=== PATIENT | female | born 1940 | race Caucasian/White ===

== ENCOUNTER 2016-06-10 12:20 | Inpatient (IN) | payer OTHER ==
[~2016-06-10] VITALS: Ht 152.4 cm; Wt 74.7 kg
[~2016-06-10 12:20] MED LIST: ANT25 PO; ASPI-435 PO; CRAN500C2 PO; INSUINJ4 SQ; LISI40TA PO; LPT/40 PO; METO-452 PO; TRIM100T2 PO
[2016-06-10] MEDS ORDERED: MECL1TAB42 PO (13:10)
[2016-06-10] MEDS ORDERED: DULA1INJ SC (13:10)
[2016-06-10] MEDS ORDERED: [UNRECOGNIZED DRUG - CODE] PO (13:10)
[2016-06-10] MEDS ORDERED: VNTHFA/IN INH (13:10)
[2016-06-10] MEDS ORDERED: TOLT2TAB9 PO (13:10)
[2016-06-10] MEDS ORDERED: INSU1.2I SC (13:10)
[2016-06-10 13:44] LABS: BASO % 0.2 %; BASO ABS # 0.01 K/uL (0-0.2); COMPLETE YES; EOS % 0.4 %; IG% 0.4 %; LYMPH % 34.7 %; LYMPH ABS # 1.67 K/uL (1.2-3.4); MEAN CELL VOLUME 89.1 fL (80-100); MEAN CORPUSCULAR HEMOGLOBIN 31.4 pg (25-34); MEAN CORPUSCULAR HGB CONC 35.3 g/dl (32-36); MEAN PLATELET VOLUME 10.4 fL (7.4-10.4); MONO % 13.7 %; NEUT % 50.6 %; PLATELET COUNT 141 K/uL (130-400); RED BLOOD COUNT 4.49 M/uL (4.2-5.4); WHITE BLOOD COUNT 4.81 K/uL (4.8-10.8)
[2016-06-10 13:47] LABS: MANUAL MICROSCOPIC REQUIRED? YES; REVIEW REQ? NO; URINE APPEARANCE SL CLOUDY (CLEAR); URINE BILIRUBIN NEG (NEG); URINE COLOR YELLOW; URINE NITRITE NEG (NEG); URINE PH 5.5 (4.5-7.5); URINE SPECIFIC GRAVITY >= 1.030 (1.000-1.030); UROBILINOGEN NEG (NEG)
[2016-06-10 13:54] LABS: BUN/CREATININE RATIO 13.7 (10-20); CALCIUM 8.8 mg/dl (8.5-10.1); CREATININE 1.2 mg/dl (0.60-1.20)
[2016-06-10 13:55] LABS: URINE BACTERIA 1+ (NEG); URINE RBC 0-4 /hpf (0-4)
[2016-06-10 13:56] LABS: ZZUR CULT IF INDIC CLEAN CATCH YES
[2016-06-10 13:59] LABS: ALB/GLOB RATIO 0.9 (0.9-2)
[2016-06-10] MEDS ORDERED: SODIUM CHLORIDE 0.9% 1000ML 1,000 ML IV ONE (14:02)
[2016-06-10] MEDS ORDERED: SODIUM CHLORIDE 0.9% 1000ML 1,000 ML IV STA (14:02)
--- NOTE | 2016-06-10 14:16 | EMERGENCY ROOM VISIT NOTE ---
History Report prepared by Christina: Rangel Rodriguez Under the Supervision of: Dr. Luiz Barton M.D. First contact with patient: 13:58 Chief Complaint: COUGH Stated Complaint: COUGH, CHEST PAIN, DIAHRRHEA, FEVER, WEAKNESS. 1WK Nursing Triage Summary: Pt c/o cough, dizziness, diarrhea (has it all the time, Has Lupus but in remission). Abdominal pain on the right side. Right hip pain, "I hurt all over even in my toes". "My chest hurts from coughing" Symptoms x 1 week. Hx DM, Lupus, Strokes, VA History of Present Illness The patient is a 75 year old female who presents to the Emergency Room with complaints of a persistent cough beginning one week prior to arrival. She currently rates her discomfort as a 7/10 in severity. The patient associates body aches, sore throat, sinus drip, sore neck, headache, eye burning, chest pain with coughing, dizziness, and diarrhea with today's symptoms. As per family , the patient experiences loose bowels all of the time. She notes the patient has Lupus but is in remission. The patient notes she had a fever that resolved last night. She denies being in contact with sick people. The patient states she has taken Advil with little relief. She notes she is not on a blood thinner , and she states she takes an aspirin a day. The patient denies burning with urination. 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 A total of 10 systems reviewed and were otherwise negative. Past Medical & Surgical Medical Problems: (1) CHF (congestive heart failure) (2) Diabetes (3) Heart attack (4) Kidney stones (5) Lupus (6) Stroke (7) UTI (urinary tract infection) (8) Vertigo Surgical Problems: (1) Stented coronary artery Old medical records were reviewed. Nurse's notes were reviewed and I agree with. Family History Patient reports no known family medical history. Social History Smoking Status: Never Smoker Alcohol Use: none Drug Use: none Occupation Status: retired Current/Historical Medications Scheduled Albuterol Hfa (Ventolin Hfa), 1-2 PUFFS INH Q4-6H Aspirin (Aspirin 81), 81 MG PO DAILY Atorvastatin (Lipitor), 40 MG PO HS Cranberry (Vaccinium Macrocarp (Cranberry), 1,000 MG PO DAILY Dulaglutide (Trulicity), 0.75 MG SC WK Insulin Glargine (Toujeo Solostar), 44 UNITS SC DAILY Lactobacillus (Acidophilus Probiotic), 2 TABS PO DAILY Lisinopril (Zestril), 1 TAB PO DAILY Metoprolol Succinate (Toprol Xl), 50 MG PO DAILY Tolterodine Tartrate (Tolterodine Tartrate), 2 MG PO BID Trimethoprim (Proloprim), 100 MG PO HS Scheduled PRN Meclizine Hcl (Meclizine Hcl), 1 TAB PO Q12 PRN for Dizziness or Vertigo Allergies Coded Allergies: Dapsone (Verified Allergy, Intermediate, RASH, 06/10/16) Sulfa Drugs (Verified Allergy, Mild, 06/10/16) Ciprofloxacin (Verified Adverse Reaction, Intermediate, "i blew up like a balloon" per pt, 06/10/16) Adhesives (Verified Adverse Reaction, Unknown, unknwn, 06/10/16) Hydrocodone (Verified Adverse Reaction, Unknown, GI SYMPTOMS, 06/10/16) Oxycodone (Verified Adverse Reaction, Unknown, GI SYMPTOMS, 06/10/16) Red Dye (Verified Adverse Reaction, Unknown, unknwn, 06/10/16) Physical Exam Vital Signs Date Time Temp Pulse Resp B/P Pulse Ox O2 Delivery O2 Flow Rate FiO2 06/10/16 16:05 72 19 97 06/10/16 16:00 154/93 06/10/16 15:44 168/96 06/10/16 15:35 68 20 97 06/10/16 15:32 70 06/10/16 15:30 69 25 99 06/10/16 15:11 68 16 181/93 100 Room Air 06/10/16 15:08 181/93 06/10/16 14:45 79 16 158/101 97 Room Air 06/10/16 12:32 98 Room Air 06/10/16 12:27 36.7 74 17 124/74 97 Room Air Physical Exam General: Mildly ill appearing but nontoxic older female. Frequent dry cough. HEENT: Normal cephalic atraumatic. Pupils are equal round and reactive to light. Extraocular movements are intact. Oropharynx is pink with moist mucous membranes. No swelling of the mouth lips or tongue. Neck: Supple with a midline trachea. No meningeal signs or stiffness, no JVD or bruits. No Stridor. Chest: Clear to auscultation bilaterally. No wheezes or rhonchi. No increased work of breathing. Heart: regular rate and rhythm. Abdomen: Soft nontender, nondistended without rebound guarding or rigidity. Extremities: No cyanosis clubbing or edema. No calf tenderness or assymetry Spine/Back. Non tender to palpation. No CVA tenderness Skin: Good turgor without rashes. Neurologic exam: Cranial nerves two through 12 are intact. Motor and sensation are intact and symmetrical throughout. Medical Decision & Procedures ER Provider Diagnostic Interpretation: X-ray results as stated below per interpretation by me and the radiologist: CHEST 2 VIEWS ROUTINE CLINICAL HISTORY: Productive cough COMPARISON STUDY: December 04, 2014 FINDINGS: The heart is enlarged. There are interstitial opacities with a peripheral distribution. There is no significant pleural fluid. There is no lobar consolidation. Likely diagnostic considerations include interstitial edema, eosinophilic pneumonitis, cryptogenic organizing pneumonia, or UIP. IMPRESSION: Mild cardiomegaly. Bilateral interstitial opacities with a peripheral perfusion. Please see above differential. Electronically signed by: Tom Genao M.D. 06/10/2016 2:49 PM Laboratory Results 06/10/16 13:15 Red Blood Count 4.49, Mean Corpuscular Volume 89.1, Mean Corpuscular Hemoglobin 31.4, Mean Corpuscular Hemoglobin Concent 35.3, Mean Platelet Volume 10.4, Neutrophils (%) (Auto) 50.6, Lymphocytes (%) (Auto) 34.7, Monocytes (%) (Auto) 13.7, Eosinophils (%) (Auto) 0.4, Basophils (%) (Auto) 0.2, Neutrophils # (Auto ) 2.43, Lymphocytes # (Auto) 1.67, Monocytes # (Auto) 0.66, Eosinophils # (Auto ) 0.02, Basophils # (Auto) 0.01 06/10/16 13:15 Test 06/10/16 13:15 06/10/16 14:33 White Blood Count 4.81 K/uL (4.8-10.8) Red Blood Count 4.49 M/uL (4.2-5.4) Hemoglobin 14.1 g/dL (12.0-16.0) Hematocrit 40.0 % (37-47) Mean Corpuscular Volume 89.1 fL (80-100) Mean Corpuscular Hemoglobin 31.4 pg (25-34) Mean Corpuscular Hemoglobin Concent 35.3 g/dl (32-36) Platelet Count 141 K/uL (130-400) Mean Platelet Volume 10.4 fL (7.4-10.4) Neutrophils (%) (Auto) 50.6 % Lymphocytes (%) (Auto) 34.7 % Monocytes (%) (Auto) 13.7 % Eosinophils (%) (Auto) 0.4 % Basophils (%) (Auto) 0.2 % Neutrophils # (Auto) 2.43 K/uL (1.4-6.5) Lymphocytes # (Auto) 1.67 K/uL (1.2-3.4) Monocytes # (Auto) 0.66 K/uL (0.11-0.59) Eosinophils # (Auto) 0.02 K/uL (0-0.5) Basophils # (Auto) 0.01 K/uL (0-0.2) RDW Standard Deviation 43.0 fL (36.4-46.3) RDW Coefficient of Variation 13.2 % (11.5-14.5) Immature Granulocyte % (Auto) 0.4 % Immature Granulocyte # (Auto) 0.02 K/uL (0.00-0.02) Urine Color YELLOW Urine Appearance SL CLOUDY (CLEAR) Urine pH 5.5 (4.5-7.5) Urine Specific Diagonal >= 1.030 (1.000-1.030) Urine Protein TRACE (NEG) Urine Glucose (UA) NEG (NEG) Urine Ketones NEG (NEG) Urine Occult Blood 1+ (NEG) Urine Nitrite NEG (NEG) Urine Bilirubin NEG (NEG) Urine Urobilinogen NEG (NEG) Urine Leukocyte Esterase MODERATE (NEG) Urine RBC 0-4 /hpf (0-4) Urine WBC 10-30 /hpf (0-5) Urine Epithelial Cells >30 /lpf (0-5) Urine Bacteria 1+ (NEG) Anion Gap 9.0 mmol/L (3-11) Est Creatinine Clear Calc Drug Dose 36.2 ml/min Estimated GFR () 51.2 Estimated GFR (Non- 44.2 BUN/Creatinine Ratio 13.7 (10-20) Calcium Level 8.8 mg/dl (8.5-10.1) Total Bilirubin 0.7 mg/dl (0.2-1) Aspartate Amino Transf (AST/SGOT) 47 U/L (15-37) Alanine Aminotransferase (ALT/SGPT) 34 U/L (12-78) Alkaline Phosphatase 40 U/L (45-117) Total Creatine Kinase 270 U/L (26-192) Creatine Kinase MB 1.3 ng/ml (0.5-3.6) Creatine Kinase MB Ratio 0.5 (0-3.0) Total Protein 7.5 gm/dl (6.4-8.2) Albumin 3.6 gm/dl (3.4-5.0) Globulin 3.9 gm/dl (2.5-4.0) Albumin/Globulin Ratio 0.9 (0.9-2) Chemistry Specimen Hemolysis Influenza Type A Antigen Neg for Influ A (NEG) Influenza Type B Antigen POS for Influ B (NEG) Laboratory studies as stated above per my review. Medications Administered Medications (Trade) Dose Ordered Sig/Meghana Route Start Time Stop Time Status Last Admin Dose Admin Sodium Chloride 1,000 ml @ 999 mls/hr Q1H1M STAT IV 06/10/16 14:02 06/10/16 15:02 DC 06/10/16 14:40 999 MLS/HR Sodium Chloride (Nss 1000ml) 1,000 ml @ 100 mls/hr Q10H IV 06/10/16 16:19 07/10/16 16:18 06/10/16 18:33 100 MLS/HR ECG Indication: chest pain Rate (beats per minute): 72 Rhythm: normal sinus Findings: no acute ischemic change, no ectopy Comparison ECG Date: 12/04/2014 Change: Rate has increased otherwise no acute change. ED Course 1400: Past medical records reviewed. The patient was evaluated in room A11B, and a complete history and physical examination were performed. 1402: Ordered Sodium Chloride 1,000 ml @ 150 mls/hr IV, Sodium Chloride 1,000 ml @ 999 mls/hr IV. 1504: Reevaluated the patient at this time, and she noted she has experienced a fever and cough for a week with vague chest pain. 1525: I spoke to BREEZY Abdalla (Internal Medicine) about the patient's case, and he will follow the patient for further evaluation. Medical Decision Differentials include, but are not limited to; influenza, bronchitis, pneumonia , sepsis, cardiac disease, arrhythmia. This patient comes in as described above. She was placed in room A 11. She's had flulike symptoms and multiple different complaints . She's had a cough for about a week. She's had a low-grade temperature at times. She's had some chest discomfort at times mostly with coughing. IV access established and she was gently hydrated with IV normal saline. EKG, multiple blood testing was obtained. Her EKG does not suggest acute coronary syndrome or arrhythmia. Troponin is mildly elevated however. Her symptoms are not typical for acute cardiac disease however given this, I do think she needs to be admitted rule out acute cardiac event. Her influenza B did come back positive. She is likely of the window for benefit from Tamiflu. A chest x-ray also has some diffuse interstitial process that could potentiallybe infectious as well. Blood cultures were obtained. She has no significant electrolyte or metabolic maladies. She may need antibiotics as well potentially. I have consulted the [facility] hospitalist and they will see her in the ER admit her for further treatment and evaluation. Consults Time Called: 1507 Consulting Physician: BREEZY Abdalla (Internal Medicine) Returned Call: 1525 I spoke to BREEZY Abdalla (Internal Medicine) about the patient's case, and he will follow the patient for further evaluation. Impression Primary Impression: Influenza B Additional Impression: Elevated troponin Scribe Attestation The scribe's documentation has been prepared under my direction and personally reviewed by me in its entirety. I confirm that the note above accurately reflects all work, treatment, procedures, and medical decision making performed by me. Departure Information Dispostion Being Evaluated By Hospitalist (BREEZY Abdalla (Internal Medicine)) Referrals RV. Kelley MD (PCP) Problem Qualifiers
[2016-06-10 14:29] LABS: CKMB/CK RATIO 0.5 (0-3.0)
--- NOTE | 2016-06-10 14:51 | DIAGNOSTIC IMAGING REPORT ---
CHEST 2 VIEWS ROUTINE CLINICAL HISTORY: Productive cough COMPARISON STUDY: December 04, 2014 FINDINGS: The heart is enlarged. There are interstitial opacities with a peripheral distribution. There is no significant pleural fluid. There is no lobar consolidation. Likely diagnostic considerations include interstitial edema, eosinophilic pneumonitis, cryptogenic organizing pneumonia, or UIP. IMPRESSION: Mild cardiomegaly. Bilateral interstitial opacities with a peripheral perfusion. Please see above differential. Electronically signed by: Tom Genao M.D. 06/10/2016 2:49 PM Dictated Date/Time: 06/10/2016 2:45 PM
[2016-06-10] MEDS ORDERED: ACETAMINOPHEN 325 MG TAB PO PRN (16:30)
[2016-06-10] MEDS ORDERED: MoRPHine SULFATE 2 MG/ML CARP IV PRN (16:30)
[2016-06-10] MEDS ORDERED: ONDANSETRON INJ 2 MG/ML 2 ML VIAL IV PRN (16:30)
[2016-06-10] MEDS ORDERED: NON-FORMULARY MEDICATION (Dulaglutide (Trulicity) 0.75 MG) SC SCH (16:30)
--- NOTE | 2016-06-10 16:49 | History and Physical ---
History & Physical Date & Time of Service: Jun 10, 2016 at 16:41 Chief Complaint: Cough, Chest Pain, Diahrrhea, Fever, Weakness. 1WK Primary Care Physician: RV. Kelley MD History of Present Illness Source: patient, family, hospital records 75 yo female who reports feeling weak, fevers, chills and non-productive cough for over a week now with no improvement. She has had poor oral intake. No sick contacts that she knows about. She has gotten rest but her symptoms have not improved. Progressive weakness to the point that she has trouble even sitting up in bed. No treatment except for Advil as outpatient. She has continued with her inhaler but no relief in dyspnea. Here in the ED she tested positive for flu B and her troponin was slightly high. CXR showed some parenchymal infiltrates, no heart failure. EKG was normal. Started on fluids and Tamiflu, asked for admission. Past Medical/Surgical History Stroke in 2011, right leg weak [place] 2012 treated with stent Lupus - in remission DM - well controlled on Toujeo s/p cholecystectomy multiple kidney stones with stents in the past Medical Problems: (1) CHF (congestive heart failure) Status: Chronic (2) Diabetes Status: Chronic (3) Heart attack Status: Resolved (4) Kidney stones Status: Resolved (5) Lupus Status: Chronic (6) Stroke Status: Resolved (7) UTI (urinary tract infection) Status: Resolved (8) Vertigo Status: Chronic Surgical Problems: (1) Stented coronary artery Status: Chronic Family History Patient reports no known family medical history. Father - from melanoma Mother - from Alzheimers Social History Smoking Status: Never Smoker Drug Use: none Occupational Status: retired Multi-Drug Resistant Organisms History of MDRO: No Allergies Coded Allergies: Dapsone (Verified Allergy, Intermediate, RASH, 06/10/16) Sulfa Drugs (Verified Allergy, Mild, 06/10/16) Ciprofloxacin (Verified Adverse Reaction, Intermediate, "i blew up like a balloon" per pt, 06/10/16) Adhesives (Verified Adverse Reaction, Unknown, unknwn, 06/10/16) Hydrocodone (Verified Adverse Reaction, Unknown, GI SYMPTOMS, 06/10/16) Oxycodone (Verified Adverse Reaction, Unknown, GI SYMPTOMS, 06/10/16) Red Dye (Verified Adverse Reaction, Unknown, unknwn, 06/10/16) Home Medications Scheduled Albuterol Hfa (Ventolin Hfa), 1-2 PUFFS INH Q4-6H Aspirin (Aspirin 81), 81 MG PO DAILY Atorvastatin (Lipitor), 40 MG PO HS Cranberry (Vaccinium Macrocarp (Cranberry), 1,000 MG PO DAILY Dulaglutide (Trulicity), 0.75 MG SC WK Insulin Glargine (Toujeo Solostar), 44 UNITS SC DAILY Lactobacillus (Acidophilus Probiotic), 2 TABS PO DAILY Lisinopril (Zestril), 1 TAB PO DAILY Metoprolol Succinate (Toprol Xl), 50 MG PO DAILY Tolterodine Tartrate (Tolterodine Tartrate), 2 MG PO BID Trimethoprim (Proloprim), 100 MG PO HS Scheduled PRN Meclizine Hcl (Meclizine Hcl), 1 TAB PO Q12 PRN for Dizziness or Vertigo Review of Systems Constitutional: + chills, + fatigue, + fever, + weakness, + weight loss, No sweats Eyes: + worsening of vision (blurred intermittently), No diplopia, No discharge , No eye pain, No problem reported, No redness ENT: + nasal symptoms (congestion), No dental problems, No hearing loss, No problem reported, No sore throat, No tinnitus, No trouble swallowing, No unusual epistaxis Respiratory: + cough, + dyspnea on exertion, + shortness of breath, No dyspnea at rest, No hemoptysis, No problem reported, No sputum, No wheezing Cardiovascular: + chest pain (with coughing, no pressure), No PND, No claudication, No edema, No orthopnea, No palpitations, No problem reported Abdomen: + diarrhea, + problem reported (poor appetite), No GI bleeding, No constipation, No nausea, No pain, No vomiting Musculoskeletal: + joint pain (diffuse), + muscle pain (diffuse) Genitourinary - Female: No dysuria, No urinary frequency, No urinary incontinence, No urinary retention, No urinary urgency Neurologic: + weakness, No balance problems, No memory loss, No numbness/ tingling, No paralysis, No problem reported, No vertigo Psychiatric: No anhedonism, No anxiety, No depression symptoms, No insomnia, No problem reported, No substance abuse Endocrine: No excessive thirst, No excessive urination, No fatigue, No problem reported Hematologic / Lymphatic: No abnormal bleeding/bruising, No clotting problems, No night sweats, No problem reported, No swollen lymph nodes Integumentary: No bleeding, No color change, No itch, No new/changing skin lesions, No problem reported, No rash Allergic / Immunologic: No environmental allergies, No food allergies, No frequent infections, No hives, No pet sensitivities, No poor healing, No problem reported, No prolonged convalescence, No seasonal allergies Physical Exam Vital Signs Date Time Temp Pulse Resp B/P Pulse Ox O2 Delivery O2 Flow Rate FiO2 06/10/16 16:30 158/113 06/10/16 16:05 72 19 97 06/10/16 16:00 154/93 06/10/16 15:44 168/96 06/10/16 15:35 68 20 97 06/10/16 15:32 70 06/10/16 15:30 69 25 99 06/10/16 15:11 68 16 181/93 100 Room Air 06/10/16 15:08 181/93 06/10/16 14:45 79 16 158/101 97 Room Air 06/10/16 12:32 98 Room Air 06/10/16 12:27 36.7 74 17 124/74 97 Room Air General Appearance: WD/WN, no apparent distress Head: normocephalic, atraumatic Eyes: normal inspection, EOMI, sclerae normal ENT: normal ENT inspection, hearing grossly normal, pharynx normal Neck: supple, no adenopathy, no JVD, trachea midline Respiratory/Chest: chest non-tender, no respiratory distress, no accessory muscle use, + decreased breath sounds, + rhonchi (scattered) Cardiovascular: regular rate, rhythm, no edema, no gallop, no JVD, no murmur, normal peripheral pulses Abdomen/GI: normal bowel sounds, non tender, soft, no organomegaly Back: normal inspection, no CVA tenderness, no muscle spasm, normal range of motion Extremities/Musculoskelatal: normal inspection, no calf tenderness, normal capillary refill, no pedal edema, normal range of motion 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, alert, normal mood/affect, normal reflexes, oriented x 3, + motor weakness (generalized, difficulty sitting up but did sit up eventually) Skin: normal color, warm/dry, no rash Lymphatic: no adenopathy Diagnostics Laboratory Results Results Past 24 Hours Test 06/10/16 13:15 06/10/16 14:33 Range/Units White Blood Count 4.81 4.8-10.8 K/uL Red Blood Count 4.49 4.2-5.4 M/uL Hemoglobin 14.1 12.0-16.0 g/dL Hematocrit 40.0 37-47 % Mean Corpuscular Volume 89.1 80-100 fL Mean Corpuscular Hemoglobin 31.4 25-34 pg Mean Corpuscular Hemoglobin Concent 35.3 32-36 g/dl Platelet Count 141 130-400 K/uL Mean Platelet Volume 10.4 7.4-10.4 fL Neutrophils (%) (Auto) 50.6 % Lymphocytes (%) (Auto) 34.7 % Monocytes (%) (Auto) 13.7 % Eosinophils (%) (Auto) 0.4 % Basophils (%) (Auto) 0.2 % Neutrophils # (Auto) 2.43 1.4-6.5 K/uL Lymphocytes # (Auto) 1.67 1.2-3.4 K/uL Monocytes # (Auto) 0.66 0.11-0.59 K/uL Eosinophils # (Auto) 0.02 0-0.5 K/uL Basophils # (Auto) 0.01 0-0.2 K/uL RDW Standard Deviation 43.0 36.4-46.3 fL RDW Coefficient of Variation 13.2 11.5-14.5 % Immature Granulocyte % (Auto) 0.4 % Immature Granulocyte # (Auto) 0.02 0.00-0.02 K/uL Urine Color YELLOW Urine Appearance SL CLOUDY CLEAR Urine pH 5.5 4.5-7.5 Urine Specific [place] >= 1.030 1.000-1.030 Urine Protein TRACE NEG Urine Glucose (UA) NEG NEG Urine Ketones NEG NEG Urine Occult Blood 1+ NEG Urine Nitrite NEG NEG Urine Bilirubin NEG NEG Urine Urobilinogen NEG NEG Urine Leukocyte Esterase MODERATE NEG Urine RBC 0-4 0-4 /hpf Urine WBC 10-30 0-5 /hpf Urine Epithelial Cells >30 0-5 /lpf Urine Bacteria 1+ NEG Sodium Level 140 136-145 mmol/L Potassium Level 4.0 3.5-5.1 mmol/L Chloride Level 105 98-107 mmol/L Carbon Dioxide Level 26 21-32 mmol/L Anion Gap 9.0 3-11 mmol/L Blood Urea Nitrogen 16 7-18 mg/dl Creatinine 1.20 0.60-1.20 mg/dl Est Creatinine Clear Calc Drug Dose 36.2 ml/min Estimated GFR () 51.2 Estimated GFR (Non- 44.2 BUN/Creatinine Ratio 13.7 10-20 Random Glucose 164 70-99 mg/dl Calcium Level 8.8 8.5-10.1 mg/dl Total Bilirubin 0.7 0.2-1 mg/dl Aspartate Amino Transf (AST/SGOT) 47 15-37 U/L Alanine Aminotransferase (ALT/SGPT) 34 12-78 U/L Alkaline Phosphatase 40 45-117 U/L Total Creatine Kinase 270 26-192 U/L Creatine Kinase MB 1.3 0.5-3.6 ng/ml Creatine Kinase MB Ratio 0.5 0-3.0 Troponin I 0.065 0-0.045 ng/ml Total Protein 7.5 6.4-8.2 gm/dl Albumin 3.6 3.4-5.0 gm/dl Globulin 3.9 2.5-4.0 gm/dl Albumin/Globulin Ratio 0.9 0.9-2 Chemistry Specimen Hemolysis Influenza Type A Antigen Neg for Influ A NEG Influenza Type B Antigen POS for Influ B NEG Microbiology Results 06/10/16 Blood Culture, Received Pending 06/10/16 Blood Culture, Received Pending 06/10/16 Urine Culture, Received Pending Diagnostic Radiology CXR - parenchymal infiltrates Normal EKG Impression Assessment and Plan 75 yo female with flu B and mild elevated troponin from demand ischemia - Influenza B: supportive care with fluids, Tamiflu x 5 days no infiltrate on CXR but with 7 days of symptoms, concern for secondary bacterial infection cover with Rocephin and Zithromax, repeat CXR tomorrow AM after IV fluids - Elevated troponin: no EKG changes, no chest pain currently cycle enzymes, EKG in the AM, continue aspirin and beta dang and statin - DM: insulin dependent, diabetic diet, consult pharmacy for transitioning to L[facility] coverage - h/o [place]: aspirin, beta dang - h/o stroke: aspirin DVT prophylaxis Level of Care Telemetry Resuscitation Status FULL RESUSCITATION VTE Prophylaxis VTE Risk Assessment Done? Y/N: Yes Risk Level: Moderate Given or contraindicated: Unfractionated heparin SQ
[2016-06-10] MEDS ORDERED: PHARMACY GLYCEMIC MGMT CONSULT PRN (17:00)
[2016-06-10] MEDS ORDERED: GLUCOSE 40% GEL 15 GM TUBE PO PRN (17:00)
[2016-06-10] MEDS ORDERED: GLUCOSE 10 TABS/TUBE PO PRN (17:00)
[2016-06-10] MEDS ORDERED: GLUCAGON FOR INJ 1 MG VIAL SQ PRN (17:00)
[2016-06-10] MEDS ORDERED: DEXTROSE 50% 50 ML SYR IV PRN (17:00)
[2016-06-10 18:00] VITALS: BP 156/85; TEMP 36.5; O2SAT 95; BMI 31.6
[2016-06-10 18:02] VITALS: BP 156/85; PULSE 70; TEMP 36.5; O2SAT 95
[2016-06-10] MEDS ORDERED: AZITHROMYCIN IV 500 MG in DEXTROSE 5% 250ML 250 ML IV SCH (18:30)
[2016-06-10] MEDS: SODIUM CHLORIDE 0.9% 1000ML 1,000 ML IV SCH (18:33)
[2016-06-10 19:25] VITALS: BP 164/91; PULSE 73; TEMP 36.5; O2SAT 95
[2016-06-10] MEDS: ALBUT/IPRATROP 3MG/0.5MG NEB 3 ML VIAL INH SCH (19:40)
[2016-06-10 19:47] VITALS: PULSE 65; O2SAT 95
[2016-06-10 19:59] LABS: PARTIAL THROMBOPLASTIN RATIO 1.2; PROTHROMBIN TIME (PATIENT) 10.9 SECONDS (9.0-12.0)
[2016-06-10] MEDS ORDERED: CEFTRIAXONE SOD INJ 1,000 MG in DEXTROSE 5% 50ML 50 ML IV SCH (20:00)
[2016-06-10] MEDS: OSELTAMIVIR PHOSPHATE 75 MG CAP PO SCH (20:31)
[2016-06-10] MEDS: TOLTERODINE TARTRATE 2 MG TAB PO SCH (20:31)
[2016-06-10] MEDS: ATORVASTATIN 40 MG TAB PO SCH (20:31)
[2016-06-10] MEDS: INSULIN ASPART 100 UNITS/ML 3 ML PEN SC SCH (20:32)
[2016-06-10] MEDS: HEPARIN SOD 5000 UNIT/0.5 ML CARP SQ SCH (21:09)
[2016-06-10 23:40] VITALS: BP 131/65; PULSE 69; TEMP 37; O2SAT 94
[2016-06-11] VITALS (7 sets, daily range): BP systolic 116–149; BP diastolic 64–85; PULSE 65–74; TEMP 36.5–36.8; O2SAT 94–97
[2016-06-11] MEDS ORDERED: TRULICITY~ORDER AWAITING ACTION SCH
[2016-06-11 05:09] LABS: BASO % 0.3 %; BASO ABS # 0.01 K/uL (0-0.2); COMPLETE YES; EOS % 1.1 %; HEMATOCRIT 33.2 % (37-47); IG% 0.3 %; LYMPH % 43.9 %; LYMPH ABS # 1.67 K/uL (1.2-3.4); MEAN CELL VOLUME 86.9 fL (80-100); MEAN CORPUSCULAR HEMOGLOBIN 30.1 pg (25-34); MEAN CORPUSCULAR HGB CONC 34.6 g/dl (32-36); MEAN PLATELET VOLUME 9.8 fL (7.4-10.4); NEUT % 39.4 %; PLATELET COUNT 121 K/uL (130-400); RED BLOOD COUNT 3.82 M/uL (4.2-5.4)
[2016-06-11 05:33] LABS: CALCIUM 8.2 mg/dl (8.5-10.1); CREATININE 0.85 mg/dl (0.60-1.20); MAGNESIUM 1.6 mg/dl (1.8-2.4); POTASSIUM 3.2 mmol/L (3.5-5.1)
[2016-06-11] MEDS: ALBUT/IPRATROP 3MG/0.5MG NEB 3 ML VIAL INH SCH (07:27)
--- NOTE | 2016-06-11 07:37 | DIAGNOSTIC IMAGING REPORT ---
CHEST ONE VIEW PORTABLE CLINICAL HISTORY: Dyspnea. COMPARISON STUDY: Chest radiograph June 10, 2016. FINDINGS: Lung volumes are diminished. No pneumothorax or pleural effusion is identified. There is lower lung interstitial thickening. There is no evidence for overt pulmonary edema. There is no consolidation. Moderate cardiomegaly is unchanged. IMPRESSION: 1. Moderate cardiomegaly. 2. No change in mild interstitial thickening. This is age indeterminate and could reflect interstitial lung disease or mild pulmonary edema. Electronically signed by: Tristin Hilliard M.D. 06/11/2016 7:35 AM Dictated Date/Time: 06/11/2016 7:32 AM
[2016-06-11] MEDS ORDERED: POTASSIUM CHLORIDE 10 MEQ TABCR PO STA (07:45)
[2016-06-11] MEDS: SODIUM CHLORIDE 0.9% 1000ML 1,000 ML IV SCH ×3 (08:02→19:14)
[2016-06-11] MEDS: MAGNESIUM SULFATE 1GM / D5W 1 GM in PREMIXED IN D5W 100 ML IV SCH ×2 (08:05→10:19)
[2016-06-11] MEDS: INSULIN ASPART 100 UNITS/ML 3 ML PEN SC SCH ×4 (08:12→21:00)
[2016-06-11] MEDS ORDERED: DIPHENOXYLATE/ATROPINE 2.5/0.025MG TAB PO ONE (08:15)
[2016-06-11] MEDS ORDERED: DIPHENOXYLATE/ATROPINE 2.5/0.025MG TAB PO PRN (08:15)
[2016-06-11] MEDS: LISINOPRIL 40 MG TAB PO SCH (08:15)
[2016-06-11] MEDS: TOLTERODINE TARTRATE 2 MG TAB PO SCH ×2 (08:17→22:02)
[2016-06-11] MEDS: METOPROLOL SUCC 50MG EXT REL TAB PO SCH (08:17)
[2016-06-11] MEDS: ASPIRIN 81 MG ECTAB PO SCH (08:17)
[2016-06-11] MEDS: OSELTAMIVIR PHOSPHATE 75 MG CAP PO SCH ×2 (08:18→22:02)
[2016-06-11] MEDS: HEPARIN SOD 5000 UNIT/0.5 ML CARP SQ SCH ×2 (08:26→22:10)
[2016-06-11] MEDS: INSULIN GLARGINE SOLOSTAR 100 UNITS/ML 3 ML PEN SC SCH (08:28)
[2016-06-11] MEDS ORDERED: INSULIN GLARGINE SOLOSTAR 100 UNITS/ML 3 ML PEN SC SCH (09:00)
[2016-06-11] MEDS ORDERED: INSULIN GLARGINE 44 UNIT SC SCH (09:00)
[2016-06-11] MEDS ORDERED: ALBUT/IPRATROP 3MG/0.5MG NEB 3 ML VIAL INH PRN (09:15)
--- NOTE | 2016-06-11 09:15 | Progress Note ---
Subjective Date of Service: Jun 11, 2016. Subjective Pt evaluation today including: conversation w/ patient, physical exam, lab review, review of inpatient medication list Pain: no pain PO Intake: poor Voiding: no voiding problems patient feels better from strength perspective, feels that fluids helping reviewed labs, low mag and pot, replacements ordered troponin stayed at 0.06, no rise that would suggest ischemia having diarrhea this AM, typically has IBS and has loose stools at baseline checking c diff and culture, lomotil ordered discussed moving off tele, still not strong enough to go home, not eating/ drinking well enough Problem List Medical Problems: (1) Elevated troponin Status: Acute (2) Influenza B Status: Acute Review of Systems Constitutional: + fatigue, + weakness Respiratory: + cough, + dyspnea on exertion Abdomen: + diarrhea Neurologic: + weakness All Other Systems: Reviewed and Negative Medications Current Inpatient Medications Medications (Trade) Dose Ordered Sig/Meghana Route Start Time Stop Time Status Last Admin Dose Admin Sodium Chloride (Nss 1000ml) 1,000 ml @ 100 mls/hr Q10H IV 06/10/16 16:19 07/10/16 16:18 06/11/16 08:02 100 MLS/HR Acetaminophen (Tylenol Tab) 650 mg Q4H PRN PO 06/10/16 16:30 07/10/16 16:29 Ondansetron HCl (Zofran Inj) 4 mg Q6H PRN IV 06/10/16 16:30 07/10/16 16:29 Morphine Sulfate (MoRPHine SULFATE INJ) 2 mg Q30M PRN IV 06/10/16 16:30 06/24/16 16:29 Aspirin (Ecotrin Tab) 81 mg DAILY PO 06/11/16 09:00 07/11/16 08:59 06/11/16 08:17 81 MG Atorvastatin Calcium (Lipitor Tab) 40 mg HS PO 06/10/16 21:00 07/10/16 20:59 06/10/16 20:31 40 MG Lisinopril (Zestril Tab) 40 mg DAILY PO 06/11/16 09:00 07/11/16 08:59 06/11/16 08:15 40 MG Metoprolol Succinate (Toprol Xl Tab) 50 mg DAILY PO 06/11/16 09:00 07/11/16 08:59 06/11/16 08:17 50 MG Tolterodine Tartrate (Detrol Tab) 2 mg BID PO 06/10/16 21:00 07/10/16 20:59 06/11/16 08:17 2 MG Miscellaneous Information (Consult Glycemic Management Pharmacy) 1 ea UD PRN N/A 06/10/16 17:00 07/10/16 16:59 Oseltamivir Phosphate (Tamiflu Cap) 75 mg BID PO 06/10/16 21:00 06/15/16 20:59 06/11/16 08:18 75 MG Glucose (Glucose 40% Gel) 15-30 GRAMS 15 GRAMS... UD PRN PO 06/10/16 17:00 07/10/16 16:59 Glucose (Glucose Chew Tab) 4-8 Tablets 4 Tabl... UD PRN PO 06/10/16 17:00 07/10/16 16:59 Dextrose (Dextrose 50% 50ML Syringe) 25-50ML OF 50% DW IV FOR... UD PRN IV 06/10/16 17:00 07/10/16 16:59 Glucagon (Glucagon Inj) 1 mg UD PRN SQ 06/10/16 17:00 07/10/16 16:59 Heparin Sodium (Porcine) (Heparin Sq 5000 Unit/0.5ml) 5,000 unit Q12 SQ 06/10/16 21:00 07/10/16 20:59 06/11/16 08:26 5,000 UNIT Insulin Aspart SLIDING SCALE G... ACHS SC 06/10/16 21:00 07/10/16 20:59 Magnesium Sulfate/ Prmx (Magnesium Sulfate/Premixed D5W) 100 ml @ 100 mls/hr Q1H IV 06/11/16 08:00 06/11/16 09:59 06/11/16 08:05 100 MLS/HR Diphenoxylate HCl/ Atropine (Lomotil Tab) 1 tab Q6 PRN PO 06/11/16 08:15 07/11/16 08:14 Insulin Glargine (Lantus Solostar Pen) 28 unit DAILY SC 06/11/16 09:00 07/11/16 08:59 06/11/16 08:28 28 UNIT Azithromycin (Zithromax Tab) 250 mg QAM PO 06/12/16 09:00 06/19/16 08:59 UNV Albuterol/ Ipratropium (Duoneb) 3 ml Q4R PRN INH 06/11/16 09:15 07/11/16 09:14 UNV Objective Vital Signs Date Time Temp Pulse Resp B/P Pulse Ox O2 Delivery O2 Flow Rate FiO2 06/11/16 07:29 74 16 97 Room Air 06/11/16 07:27 36.5 73 18 124/85 97 Room Air 06/11/16 04:40 36.6 65 18 116/64 94 Room Air 06/11/16 04:00 Room Air 06/11/16 00:01 Room Air 06/10/16 23:40 37.0 69 18 131/65 94 Room Air 06/10/16 20:00 Room Air 06/10/16 19:47 65 16 95 Room Air 06/10/16 19:25 36.5 73 20 164/91 95 Room Air 06/10/16 18:02 36.5 70 16 156/85 95 Room Air 06/10/16 18:00 36.5 16 156/85 95 Room Air 06/10/16 17:32 36.7 69 15 156/102 97 06/10/16 17:05 69 15 97 06/10/16 17:00 156/102 06/10/16 16:35 70 19 96 06/10/16 16:30 158/113 06/10/16 16:05 72 19 97 06/10/16 16:00 154/93 06/10/16 15:44 168/96 06/10/16 15:35 68 20 97 06/10/16 15:32 70 06/10/16 15:30 69 25 99 06/10/16 15:11 68 16 181/93 100 Room Air 06/10/16 15:08 181/93 06/10/16 14:45 79 16 158/101 97 Room Air 06/10/16 12:32 98 Room Air 06/10/16 12:27 36.7 74 17 124/74 97 Room Air Physical Exam General Appearance: WD/WN, no apparent distress Eyes: normal inspection, EOMI, sclerae normal ENT: normal ENT inspection, hearing grossly normal, pharynx normal Neck: supple, no adenopathy, no JVD, trachea midline Respiratory/Chest: chest non-tender, lungs clear, normal breath sounds, no respiratory distress, no accessory muscle use Cardiovascular: regular rate, rhythm, no edema, no gallop, no JVD, no murmur Abdomen: normal bowel sounds, non tender, soft, no organomegaly Extremities: normal range of motion, non-tender, normal inspection, no pedal edema, no calf tenderness 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, no motor/sensory deficits, alert, normal mood/affect, oriented x 3 Skin: normal color, warm/dry, no rash Laboratory Results Last 24 Hours Test 06/10/16 13:15 06/10/16 14:33 06/10/16 19:34 06/10/16 20:08 White Blood Count 4.81 K/uL Red Blood Count 4.49 M/uL Hemoglobin 14.1 g/dL Hematocrit 40.0 % Mean Corpuscular Volume 89.1 fL Mean Corpuscular Hemoglobin 31.4 pg Mean Corpuscular Hemoglobin Concent 35.3 g/dl Platelet Count 141 K/uL Mean Platelet Volume 10.4 fL Neutrophils (%) (Auto) 50.6 % Lymphocytes (%) (Auto) 34.7 % Monocytes (%) (Auto) 13.7 % Eosinophils (%) (Auto) 0.4 % Basophils (%) (Auto) 0.2 % Neutrophils # (Auto) 2.43 K/uL Lymphocytes # (Auto) 1.67 K/uL Monocytes # (Auto) 0.66 K/uL Eosinophils # (Auto) 0.02 K/uL Basophils # (Auto) 0.01 K/uL RDW Standard Deviation 43.0 fL RDW Coefficient of Variation 13.2 % Immature Granulocyte % (Auto) 0.4 % Immature Granulocyte # (Auto) 0.02 K/uL Urine Color YELLOW Urine Appearance SL CLOUDY Urine pH 5.5 Urine Specific [place] >= 1.030 Urine Protein TRACE Urine Glucose (UA) NEG Urine Ketones NEG Urine Occult Blood 1+ Urine Nitrite NEG Urine Bilirubin NEG Urine Urobilinogen NEG Urine Leukocyte Esterase MODERATE Urine RBC 0-4 /hpf Urine WBC 10-30 /hpf Urine Epithelial Cells >30 /lpf Urine Bacteria 1+ Sodium Level 140 mmol/L Potassium Level 4.0 mmol/L Chloride Level 105 mmol/L Carbon Dioxide Level 26 mmol/L Anion Gap 9.0 mmol/L Blood Urea Nitrogen 16 mg/dl Creatinine 1.20 mg/dl Est Creatinine Clear Calc Drug Dose 36.2 ml/min Estimated GFR () 51.2 Estimated GFR (Non- 44.2 BUN/Creatinine Ratio 13.7 Random Glucose 164 mg/dl Calcium Level 8.8 mg/dl Total Bilirubin 0.7 mg/dl Aspartate Amino Transf (AST/SGOT) 47 U/L Alanine Aminotransferase (ALT/SGPT) 34 U/L Alkaline Phosphatase 40 U/L Total Creatine Kinase 270 U/L Creatine Kinase MB 1.3 ng/ml Creatine Kinase MB Ratio 0.5 Troponin I 0.065 ng/ml Total Protein 7.5 gm/dl Albumin 3.6 gm/dl Globulin 3.9 gm/dl Albumin/Globulin Ratio 0.9 Chemistry Specimen Hemolysis Influenza Type A Antigen Neg for Influ A Influenza Type B Antigen POS for Influ B Prothrombin Time 10.9 SECONDS Prothromb Time International Ratio 1.0 Activated Partial Thromboplast Time 29.9 SECONDS Partial Thromboplastin Ratio 1.2 Bedside Glucose 103 mg/dl Test 06/10/16 21:15 06/11/16 04:20 06/11/16 06:33 Troponin I 0.067 ng/ml 0.062 ng/ml White Blood Count 3.80 K/uL Red Blood Count 3.82 M/uL Hemoglobin 11.5 g/dL Hematocrit 33.2 % Mean Corpuscular Volume 86.9 fL Mean Corpuscular Hemoglobin 30.1 pg Mean Corpuscular Hemoglobin Concent 34.6 g/dl Platelet Count 121 K/uL Mean Platelet Volume 9.8 fL Neutrophils (%) (Auto) 39.4 % Lymphocytes (%) (Auto) 43.9 % Monocytes (%) (Auto) 15.0 % Eosinophils (%) (Auto) 1.1 % Basophils (%) (Auto) 0.3 % Neutrophils # (Auto) 1.50 K/uL Lymphocytes # (Auto) 1.67 K/uL Monocytes # (Auto) 0.57 K/uL Eosinophils # (Auto) 0.04 K/uL Basophils # (Auto) 0.01 K/uL RDW Standard Deviation 42.0 fL RDW Coefficient of Variation 13.1 % Immature Granulocyte % (Auto) 0.3 % Immature Granulocyte # (Auto) 0.01 K/uL Sodium Level 143 mmol/L Potassium Level 3.2 mmol/L Chloride Level 110 mmol/L Carbon Dioxide Level 25 mmol/L Anion Gap 8.0 mmol/L Blood Urea Nitrogen 14 mg/dl Creatinine 0.85 mg/dl Est Creatinine Clear Calc Drug Dose 51.2 ml/min Estimated GFR () 77.7 Estimated GFR (Non- 67.0 BUN/Creatinine Ratio 16.0 Random Glucose 109 mg/dl Calcium Level 8.2 mg/dl Magnesium Level 1.6 mg/dl Bedside Glucose 111 mg/dl Assessment and Plan 75 yo female with flu B and mild elevated troponin from demand ischemia - Influenza B: supportive care with fluids, Tamiflu x 5 days total, day 2 today no infiltrate on CXR but with 7 days of symptoms, concern for secondary bacterial infection covered initially with Rocephin and Zithromax, repeat CXR today shows no clear infiltrate d/c Rocephin, complete 4 more days of Zithromax 250mg PO daily - Elevated troponin: no EKG changes, no chest pain on admission or today troponin remains at 0.06, suggestive of demand, no heart attack, continue aspirin and beta dang and statin safe to transfer off tele today - DM: insulin dependent, diabetic diet, on Toujeo at home novolog coverage sugars well controlled today on Lantus 28 units daily, appreciate pharmacy help - h/o [place]: aspirin, beta dang - h/o stroke: aspirin - Diarrhea: has loose stools at baseline with IBS, suspect acute infection making diarrhea worse C diff positive, will treat with Vancomycin 125mg QID and add questran to bulk stools will need 14 day course total DVT prophylaxis transfer off tele today, suspect she needs one more day for IV fluids and supportive care likely d/c home tomorrow on Tamiflu and Zithromax and Vancomycin PO
--- NOTE | 2016-06-11 09:33 | Pharmacy Progress Note ---
Glycemic Control Intl Consult Date of Service Jun 11, 2016. Scope Glycemic Pharmacist consulted by Dr Persaud on 06/10/16 for glycemic control and to write orders per [facility] inpatient glycemic control protocol Objective Weight (Kilograms): 74.700 Accuchecks BSG (last 24hrs): Test 06/10/16 13:15 06/10/16 20:08 06/11/16 04:20 06/11/16 06:33 Random Glucose 164 mg/dl (70-99) 109 mg/dl (70-99) Bedside Glucose 103 mg/dl (70-90) 111 mg/dl (70-90) Laboratory Data (last 24hrs) Test 06/10/16 13:15 06/11/16 04:20 Anion Gap 9.0 mmol/L 8.0 mmol/L BUN/Creatinine Ratio 13.7 16.0 Blood Urea Nitrogen 16 mg/dl 14 mg/dl Creatinine 1.20 mg/dl 0.85 mg/dl Potassium Level 4.0 mmol/L 3.2 mmol/L Sodium Level 140 mmol/L 143 mmol/L White Blood Count 4.81 K/uL 3.80 K/uL Red Blood Count 4.49 M/uL 3.82 M/uL Hemoglobin 14.1 g/dL 11.5 g/dL Hematocrit 40.0 % 33.2 % Mean Corpuscular Volume 89.1 fL 86.9 fL Mean Corpuscular Hemoglobin 31.4 pg 30.1 pg Mean Corpuscular Hemoglobin Concent 35.3 g/dl 34.6 g/dl Platelet Count 141 K/uL 121 K/uL Mean Platelet Volume 10.4 fL 9.8 fL Neutrophils (%) (Auto) 50.6 % 39.4 % Lymphocytes (%) (Auto) 34.7 % 43.9 % Monocytes (%) (Auto) 13.7 % 15.0 % Eosinophils (%) (Auto) 0.4 % 1.1 % Basophils (%) (Auto) 0.2 % 0.3 % Neutrophils # (Auto) 2.43 K/uL 1.50 K/uL Lymphocytes # (Auto) 1.67 K/uL 1.67 K/uL Monocytes # (Auto) 0.66 K/uL 0.57 K/uL Eosinophils # (Auto) 0.02 K/uL 0.04 K/uL Basophils # (Auto) 0.01 K/uL 0.01 K/uL Recent Pertinent Medications Outpatient Anti-diabetic Regimen: * Toujeo 44 units daily * Trulicity 0.75 mg SC weekly Risk Factors for Insulin Resistance: * Infection * Diet Assessment & Plan ASSESSMENT: * 75 yo F admitted with flu/cough, initiated on tamiflu + Cefepime and Azithromycin * Recent A1c is unavailable to assess outpatient glycemic control * As an outpatient she takes a combination of Trulicity + Toujeo * Plan will be to convert her to basal/bolus while inpatient * Weight-based regimen versus total daily outpatient dose provides similar inpatient recommendations * Of note, noted poor po intake and diarrhea this AM- current basal is lower than home dose- will reassess in AM * ADA & AACE recommend a goal blood sugar range 140-180 mg/dl for the majority of critically ill & non-critically ill patients. However, more stringent targets may be selected in individual cases. Provider selected 120-160 mg/dL which I believe to be appropriate in this case. Will loosen if necessary. PLAN FOR INPATIENT GLYCEMIC CONTROL: * Holding outpatient oral diabetes medications * Basal insulin with LANTUS 28 units SQ daily * Correctional Insulin with NOVOLOG per scale ACHS or Q6hrs while NPO * Goal Range: Low 120 mg/dL - High 160 mg/dL * Correction Factor: 30 mg/dL/unit * Nutritional / Prandial insulin per carb ratio of 1 unit per 10 grams CHO consumed * A1c with AM labs tomorrow * Please note that the plan above was derived based on current level of insulin resistance and hospital stress. These recommendations are appropriate for inpatient admission only. Plan of care upon discharge will need to be reassessed to avoid potential outpatient hypo/hyperglycemia. Thank you.
[2016-06-11] MEDS: VANCOMYCIN HCL 125 MG/2.5ML SOLN PO SCH ×2 (17:17→21:59)
[2016-06-11] MEDS: RASPBERRY SYRUP 5 ML UDP PO SCH ×2 (17:18→21:59)
[2016-06-11] MEDS ORDERED: AZITHROMYCIN 250 MG TAB PO SCH (18:00)
[2016-06-11] MEDS: ATORVASTATIN 40 MG TAB PO SCH (22:01)
[2016-06-11] MEDS: CHOLESTYRAMINE LIGHT 4 GM PKT PO SCH (23:50)
[2016-06-12 00:29] VITALS: BP 170/109; PULSE 73; TEMP 36.8; O2SAT 95
[2016-06-12 01:00] VITALS: BP 164/83
[2016-06-12] MEDS: SODIUM CHLORIDE 0.9% 1000ML 1,000 ML IV SCH ×2 (05:53→08:39)
[2016-06-12 08:00] VITALS: BP 173/89; PULSE 68; TEMP 36.7; O2SAT 97
[2016-06-12] MEDS: INSULIN ASPART 100 UNITS/ML 3 ML PEN SC SCH ×2 (08:36→12:46)
[2016-06-12] MEDS: TOLTERODINE TARTRATE 2 MG TAB PO SCH (08:41)
[2016-06-12] MEDS: RASPBERRY SYRUP 5 ML UDP PO SCH ×2 (08:42→12:41)
[2016-06-12] MEDS: ASPIRIN 81 MG ECTAB PO SCH (08:42)
[2016-06-12] MEDS: OSELTAMIVIR PHOSPHATE 75 MG CAP PO SCH (08:42)
[2016-06-12] MEDS: LISINOPRIL 40 MG TAB PO SCH (08:43)
[2016-06-12] MEDS: METOPROLOL SUCC 50MG EXT REL TAB PO SCH (08:43)
[2016-06-12] MEDS: HEPARIN SOD 5000 UNIT/0.5 ML CARP SQ SCH (08:53)
[2016-06-12] MEDS: VANCOMYCIN HCL 125 MG/2.5ML SOLN PO SCH ×2 (08:54→12:41)
[2016-06-12] MEDS: INSULIN GLARGINE SOLOSTAR 100 UNITS/ML 3 ML PEN SC SCH (08:54)
[2016-06-12 09:28] LABS: ESTIMATED AVERAGE GLUCOSE 206 mg/dl; HA1C FLAG Normal (Normal)
[2016-06-12] MEDS ORDERED: TMF75 PO (09:45)
[2016-06-12] MEDS ORDERED: AZIT-57 PO (09:45)
[2016-06-12] MEDS ORDERED: VNCS125 PO (09:45)
--- NOTE | 2016-06-12 09:53 | Discharge Instructions ---
Discharge Instructions Date of Service Jun 12, 2016. Admission Reason for Admission: Elevated Troponin, Influenza B Discharge Discharge Diagnosis / Problem: Influenza B, C. diff Discharge Goals Goal(s): Decrease discomfort, Improve function Activity Recommendations Activity Limitations: resume your previous activity Lifting Limitations: no more than 25 pounds, gradually increase as tolerated Exercise/Sports Limitations: gradually increase as tolerated May Resume Sexual Activity: when tolerated Shower/Bathe: no limitations . Instructions / Follow-Up Instructions / Follow-Up You were admitted to [facility] and diagnosed with influennzae B and clostridium difficile (C. diff) gastroenteritis. - During your stay here you were treated with intravenous fluids, tamiflu( antiviral for the flu), azithromax (antibiotics to make sure you dont have an underlying bacterial respiratory infection) and vancomycin (antibiotic for c. diff). - Continue to eat and drink as tolerated. Remember to drink plenty of fluids to stay well hydrated. You may take Imodium to help with diarrhea. Medications: Continue taking Tamiflu twice daily, last dose to finish on 06/14/16 Continue taking azithromycin once daily, for the next 3 days, last dose to finish on 06/15/16 Continue taking vancomycin by mouth solution 4 times daily for 13 more days, this will complete a two-week course 06/25/16 Follow-up with your PCP within one week. Current Hospital Diet Patient's current hospital diet: AHA Diet (Heart Healthy), Diabetes Type 2 Diet Discharge Diet Recommended Diet: Regular Diet Procedures Procedures Performed: None Pending Studies Studies pending at discharge: no Laboratory Results Hemoglobin A1c Test 06/12/16 07:33 Range/Units Estimated Average Glucose 206 mg/dl Hemoglobin A1c 8.8 H 4.5-5.6 % Medical Emergencies . Who to Call and When: Medical Emergencies: If at any time you feel your situation is an emergency, please call 911 immediately. . Non-Emergent Contact Non-Emergency issues call your: Primary Care Provider Call Non-Emergent contact if: you have a fever, temperature is above 100.5, your pain is not controlled, your pain is worsening, your pain is concerning you , you have any medication questions Become lightheaded, dizzy, unable to tolerate food, worsening diarrhea, nausea, or vomiting. Call 911 or go directly to the emergency department if you experience chest pain , chest palpitations, flutter, shortness of breath, increased confusion, or if you have other concerns with your health. . . "Provider Documentation" section prepared by Beverly Solorio. VTE Core Measure Inpt VTE Proph given/why not?: Unfractionated heparin SQ
--- NOTE | 2016-06-12 09:57 | Discharge Summary ---
Discharge Summary Date of Service Jun 12, 2016. (Maame Solorio PA-C) Discharge Summary Admission Date: Jun 10, 2016 at 16:24 Discharge Date: Jun 12, 2016 Discharge Disposition: Home Principal Diagnosis: influenza B, C. difficile Problems/Secondary Diagnoses: Hypertension, diabetes mellitus type 2, congestive heart failure, CAD status post stented coronary artery, history of heart attack, lupus, history of stroke , Procedures: CHEST 2 VIEWS ROUTINE 06/10/16 IMPRESSION: Mild cardiomegaly. Bilateral interstitial opacities with a peripheral perfusion. Please see above differential. CHEST ONE VIEW PORTABLE 06/10/16 IMPRESSION: 1. Moderate cardiomegaly. 2. No change in mild interstitial thickening. This is age indeterminate and could reflect interstitial lung disease or mild pulmonary edema. Consultations: None (Maame Solorio PA-C) Medication Reconciliation New Medications: Azithromycin (Azithromycin) 250 Mg Tab 250 MG PO DAILY@1800 for 3 Days, #3 TAB Oseltamivir Phosphate (Tamiflu) 75 Mg Cap 75 MG PO BID for 2 Days, #5 CAP Vancomycin HCl (Vancomycin HCl) 125 Mg/2.5 Ml Susp 125 MG PO QID for 13 Days, #52 DOSE Continued Medications: Albuterol Hfa (Ventolin Hfa) 200 Puffs/91292 Mcg Aers 1-2 PUFFS INH Q4-6H, #1 INHALER Aspirin (Aspirin 81) 81 Mg Tab 81 MG PO DAILY Atorvastatin (Lipitor) 40 Mg Tab 40 MG PO HS, TAB Cranberry (Vaccinium Macrocarp (Cranberry) 500 Mg Cap 1000 MG PO DAILY Dulaglutide (Trulicity) 0.75 Mg/0.5 Ml Inj 0.75 MG SC WK Insulin Glargine (Toujeo Solostar) 300 Unit/Ml Inj 44 UNITS SC DAILY Lactobacillus (Acidophilus Probiotic) 100 Mg Cap 2 TABS PO DAILY Lisinopril (Zestril) 40 Mg Tab 1 TAB PO DAILY for 30 Days, #30 TAB 5 Refills Meclizine Hcl (Meclizine Hcl) 25 Mg Tab 1 TAB PO Q12 PRN for Dizziness or Vertigo for 10 Days, #20 TAB Metoprolol Succinate (Toprol Xl) 50 Mg Tab 50 MG PO DAILY, #30 TAB Tolterodine Tartrate (Tolterodine Tartrate) 2 Mg Tab 2 MG PO BID Trimethoprim (Proloprim) 100 Mg Tab 100 MG PO HS, TAB Discharge Exam The patient was seen and examined this morning. Patient reports feeling well. Her diarrhea has significantly reduced, she denies any abdominal cramping, pain , nausea, vomiting. Patient feels she is stable and about at her baseline. He still reports a cough with minor clear to yellow-green mucus production. She denies any shortness of breath, fever, chills, sweats. She has been ambulating about the room in the hallways without difficulty Patient is anticipating discharge home today. ROS: Constitutional: No fever, chills, sweats, fatigue or weakness Eyes: No diplopia, no changes in vision ENT: No sore throat, tinnitus, or trouble swallowing Respiratory: No shortness of breath, No dyspnea at rest or on exertion, no cough or sputum Cardiovascular: No chest pain, palpitations, or flutter Abdomen: No pain, No constipation, No diarrhea, No nausea, No vomiting Musculoskeletal: No calf pain, No joint pain, No swelling Genitourinary : No dysuria or urinary frequency, No hematuria Neurologic: No numbness/tingling, no difficulty with ambulation, no sensory or motor deficits Psychiatric: No depression or anxiety symptoms Endocrine: No fatigue, No weight changes Integumentary: No itch, No rash Physical exam General: awake, alert, no apparent distress, + obese Head: Normocephalic, atraumatic ENT: PERRL, EOMI, no pharyngeal exudate, mucous membranes moist Chest: + Cough, nonproductive. Clear to auscultation, on room air, no adventitious breath sounds Cardiac: Regular rate and rhythm, no murmur, no JVD, normal peripheral pulses, good capillary refill Abdominal: NABS x 4 quadrants, soft, nontender to palpation, no rebound, guarding or tenderness Extremities: Normal inspection, no peripheral edema or erythema, calfs nontender to palpation Psych: Normal mood and affect Neuro: AAO x 3, strength intact bilaterally and related 5/5, no motor deficits, speech is clear, no peripheral sensory deficits (Maame Solorio, KADIE) Hospital Course H&P per Kevin Persaud MD. History of Present Illness Source: patient, family, hospital records 75 yo female who reports feeling weak, fevers, chills and non-productive cough for over a week now with no improvement. She has had poor oral intake. No sick contacts that she knows about. She has gotten rest but her symptoms have not improved. Progressive weakness to the point that she has trouble even sitting up in bed. No treatment except for Advil as outpatient. She has continued with her inhaler but no relief in dyspnea. Here in the ED she tested positive for flu B and her troponin was slightly high. CXR showed some parenchymal infiltrates, no heart failure. EKG was normal. Started on fluids and Tamiflu, asked for admission. Physical Exam Vital Signs Date Time Temp Pulse Resp B/P Pulse Ox O2 Delivery O2 Flow Rate FiO2 06/10/16 16:30 158/113 06/10/16 16:05 72 19 97 06/10/16 16:00 154/93 06/10/16 15:44 168/96 06/10/16 15:35 68 20 97 06/10/16 15:32 70 06/10/16 15:30 69 25 99 06/10/16 15:11 68 16 181/93 100 Room Air 06/10/16 15:08 181/93 06/10/16 14:45 79 16 158/101 97 Room Air 06/10/16 12:32 98 Room Air 06/10/16 12:27 36.7 74 17 124/74 97 Room Air General Appearance: WD/WN, no apparent distress Head: normocephalic, atraumatic Eyes: normal inspection, EOMI, sclerae normal ENT: normal ENT inspection, hearing grossly normal, pharynx normal Neck: supple, no adenopathy, no JVD, trachea midline Respiratory/Chest: chest non-tender, no respiratory distress, no accessory muscle use, + decreased breath sounds, + rhonchi (scattered) Cardiovascular: regular rate, rhythm, no edema, no gallop, no JVD, no murmur, normal peripheral pulses Abdomen/GI: normal bowel sounds, non tender, soft, no organomegaly Back: normal inspection, no CVA tenderness, no muscle spasm, normal range of motion Extremities/Musculoskelatal: normal inspection, no calf tenderness, normal capillary refill, no pedal edema, normal range of motion 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 The patient was found to have a C. difficile infection was started on oral vancomycin. She should continue oral bank for the next 13 days to complete a two-week course. The patient symptomatically improved and she was stable for discharge to home. 75 yo female with flu B and mild elevated troponin from demand ischemia - Influenza B: supportive care with fluids, Tamiflu x 5 days total, day3 today no infiltrate on CXR but with 7 days of symptoms, concern for secondary bacterial infection covered initially with Rocephin and Zithromax, repeat CXR 06/11 shows no clear infiltrate d/c Rocephin, complete 3 more days of Zithromax 250mg PO daily - Elevated troponin: no EKG changes, no chest pain on admission or today troponin remains at 0.06, suggestive of demand, no heart attack, continue aspirin and beta dang and statin - DM: insulin dependent, diabetic diet, on Toujeo at home novolog coverage sugars well controlled today on Lantus 28 units daily, appreciate pharmacy help - h/o [place]: aspirin, beta dang - h/o stroke: aspirin - Diarrhea: has loose stools at baseline with IBS, suspect acute infection making diarrhea worse C diff positive, will treat with Vancomycin 125mg QID and add questran to bulk stools will need 14 day course total DVT prophylaxis d/c home today on Tamiflu and Zithromax and Vancomycin PO Total Time Spent: Greater than 30 minutes This includes examination of the patient, discharge planning, medication reconciliation, and communication with other providers. (Maame Solorio, MARIA DEL CARMENC) I agree with PA assessment and plan and have seen and examined pt myself Resting comfortably in bed VSS Labs reviewed Flu B pos Cont tamiflu and azith Cont PO vanc for c diff OK for discharge home (George Goodman, D.OGanga) Discharge Instructions Please refer to the electronic Patient Visit Report (Discharge Instructions) for additional information. (Maame Solorio, PA-C) Follow-Up Follow-up with PCP as already scheduled on June 20 at 11:40 AM (Maame Solorio PA-C) Additional Copies To RV. Kelley MD
[2016-06-12 10:03] VITALS: O2SAT 97
--- NOTE | 2016-06-12 10:06 | Pharmacy Progress Note ---
Glycemic: Assessment & Plan Date of Service Jun 12, 2016. Assessment & Plan The patient is currently receiving 33 units of insulin per day. BSGs ranging 116 - 197 mg/dl over the past 24hrs. * Basal insulin: Lantus 28 units every 24 hours * Correctional Insulin: Novolog Correction per scale ACHS Goal Range: Low 120 mg/dL - High 160 mg/dL Correction Factor: 30 mg/dL/unit * Prandial insulin: Per carb ratio of 1 unit per 10 grams CHO consumed BSGs continue to improve, no changes needed to inpatient regimen at this time. Pharmacy will continue to monitor patient daily and write orders per [facility] inpatient glycemic control protocol. Thanks. DISCHARGE RECOMMENDATIONS: * A1c improved from 01/2016 - would recommend continuing outpatient regimen and f/u with outpatient provider
[2016-06-12] MEDS: CHOLESTYRAMINE LIGHT 4 GM PKT PO SCH (10:14)
[2016-06-12 10:30] VITALS: Ht 152.4 cm; Wt 74.7 kg
[2016-06-12] MEDS ORDERED: VANC5CAP PO (10:48)
[2016-06-12 11:44] VITALS: BP 173/89; PULSE 68; TEMP 36.7; O2SAT 97
[2016-06-12 11:46] VITALS: BP 147/88; PULSE 65
[2016-06-14] MEDS ORDERED: MTR500 PO (11:25)
== END 2016-06-12 14:19 | disposition home or self-care (01) | DRG 153 ==
LOC: CANRESERV → ENRESERVDT → ENRESERVTM → C.EDB 12:22 → C.2E 16:24 → UNDOADMIN 16:24 → C.MS2W 06-11 12:16
PROVIDERS: ADMIT Internal Medicine; ATTEND Hospitalist
DX: J11.1 Influenza due to unidentified influenza virus with other respiratory manifestations (principal); A04.7 Enterocolitis due to Clostridium difficile; E11.9 Type 2 diabetes mellitus without complications; Z86.73 Personal history of transient ischemic attack (TIA), and cerebral infarction without residual deficits; I50.9 Heart failure, unspecified; I10 Essential (primary) hypertension; I25.2 Old myocardial infarction; Z79.4 Long term (current) use of insulin; Z79.82 Long term (current) use of aspirin; K58.0 Irritable bowel syndrome with diarrhea; I25.10 Atherosclerotic heart disease of native coronary artery without angina pectoris

== ENCOUNTER 2016-06-13 12:58 | Observation (INO) | payer OTHER ==
[~2016-06-13] VITALS: Ht 152.4 cm; Wt 73.0 kg
[~2016-06-13 12:58] MED LIST changes: -ANT25 PO; +AZIT-57 PO; +DULA1INJ SC; +INSU1.2I SC; -INSUINJ4 SQ; +MECL1TAB42 PO; +TMF75 PO; +TOLT2TAB9 PO; +VANC5CAP PO; +VNTHFA/IN INH; +[UNRECOGNIZED DRUG - CODE] PO
[2016-06-13] MEDS ORDERED: SODIUM CHLORIDE 0.9% 1000ML 1,000 ML IV STA (13:19)
[2016-06-13] MEDS ORDERED: ONDANSETRON INJ 2 MG/ML 2 ML VIAL IV STA (13:19)
[2016-06-13] MEDS ORDERED: METRONIDAZOLE 500MG / 100ML NSS IV STA (13:28)
--- NOTE | 2016-06-13 14:11 | DIAGNOSTIC IMAGING REPORT ---
PA CHEST RADIOGRAPH AND UPRIGHT AND SUPINE AP RADIOGRAPHS OF THE ABDOMEN CLINICAL HISTORY: Abdominal pain and diarrhea. COMPARISON STUDY: Chest radiograph June 11, 2016 per FINDINGS: Lung volumes are normal. Mild cardiomegaly is unchanged. There is no evidence of pulmonary edema. There is no consolidation. There are cholecystectomy clips. There is no free air. There is no evidence for a bowel obstruction. IMPRESSION: 1. No free air or evidence of bowel obstruction. 2. No acute cardiopulmonary findings. Electronically signed by: Tristin Hilliard M.D. 06/13/2016 2:09 PM Dictated Date/Time: 06/13/2016 2:08 PM
[2016-06-13 15:01] LABS: BASO % 0.2 %; BASO ABS # 0.01 K/uL (0-0.2); BUN/CREATININE RATIO 12.2 (10-20); CALCIUM 9.3 mg/dl (8.5-10.1); COMPLETE YES; CREATININE 0.92 mg/dl (0.60-1.20); EOS % 1.2 %; HEMATOCRIT 37.9 % (37-47); IG% 0.2 %; LYMPH % 31.1 %; MEAN CELL VOLUME 86.7 fL (80-100); MEAN CORPUSCULAR HEMOGLOBIN 30.2 pg (25-34); MEAN CORPUSCULAR HGB CONC 34.8 g/dl (32-36); MEAN PLATELET VOLUME 9.9 fL (7.4-10.4); MONO % 8.9 %; NEUT % 58.4 %; PLATELET COUNT 163 K/uL (130-400); POTASSIUM 4.1 mmol/L (3.5-5.1); RED BLOOD COUNT 4.37 M/uL (4.2-5.4); WHITE BLOOD COUNT 4.18 K/uL (4.8-10.8)
--- NOTE | 2016-06-13 15:32 | EMERGENCY ROOM VISIT NOTE ---
History Report prepared by Christina: Latha Gooden Under the Supervision of: Dr. Mitchell Squires D.O. First contact with patient: 13:06 Chief Complaint: VOMITING Stated Complaint: DIARRHEA/VOMITING DISCHARGED YESTERDAY Nursing Triage Summary: Triage Note: Pt reports "i was discharged yesterday i have two types of the flu and c-diff." pt wearing mask in triage. pt reports nausea, vomitting, diarrhea. History of Present Illness The patient is a 75 year old female who presents to the Emergency Room with complaints of persistent vomiting starting this morning. The patient was discharged yesterday after being treated for influenza, C diff, and demand ischemia. When she was admitted 3 days ago, she had a headache, cough, fever, and abdominal pain. During the course of her stay, she developed diarrhea. Her other symptoms are improving somewhat, but she began vomiting this morning. She has vomited 3 times. She has not been able to eat today. She did vomit after taking her vancomycin this morning. She denies any dysuria. She has had a cholecystectomy. Patient notes that with the exception of the vomiting her respiratory symptoms feels slightly better. Source of History: patient Onset: this morning Position: other (global) Quality: other (vomiting) Timing: other (persistent) Associated Symptoms: + abdominal pain, + cough, + diarrhea, + fevers, + headache, No urinary symptoms Review of Systems See HPI for pertinent positives & negatives. A total of 10 systems reviewed and were otherwise negative. Past Medical & Surgical Medical Problems: (1) CHF (congestive heart failure) (2) Diabetes (3) Heart attack (4) Kidney stones (5) Lupus (6) Stroke (7) UTI (urinary tract infection) (8) Vertigo Surgical Problems: (1) Stented coronary artery Family History Patient reports no known family medical history. Social History Smoking Status: Never Smoker Alcohol Use: none Drug Use: none Marital Status: Occupation Status: retired Current/Historical Medications Scheduled Albuterol Hfa (Ventolin Hfa), 1-2 PUFFS INH Q4-6H Aspirin (Aspirin 81), 81 MG PO DAILY Atorvastatin (Lipitor), 40 MG PO HS Azithromycin (Azithromycin), 250 MG PO DAILY@1800 Cranberry (Vaccinium Macrocarp (Cranberry), 1,000 MG PO DAILY Dulaglutide (Trulicity), 0.75 MG SC WK Insulin Glargine (Toujeo Solostar), 44 UNITS SC DAILY Lactobacillus (Acidophilus Probiotic), 2 TABS PO DAILY Lisinopril (Zestril), 1 TAB PO DAILY Metoprolol Succinate (Toprol Xl), 50 MG PO DAILY Oseltamivir Phosphate (Tamiflu), 75 MG PO BID Tolterodine Tartrate (Tolterodine Tartrate), 2 MG PO BID Trimethoprim (Proloprim), 100 MG PO HS Vancomycin Hcl (Vancomycin), 1 CAP PO QID Scheduled PRN Meclizine Hcl (Meclizine Hcl), 1 TAB PO Q12 PRN for Dizziness or Vertigo Allergies Coded Allergies: Dapsone (Verified Allergy, Intermediate, RASH, 06/13/16) Sulfa Drugs (Verified Allergy, Mild, 06/13/16) Ciprofloxacin (Verified Adverse Reaction, Intermediate, "i blew up like a balloon" per pt, 06/13/16) Adhesives (Verified Adverse Reaction, Unknown, unknwn, 06/13/16) Hydrocodone (Verified Adverse Reaction, Unknown, GI SYMPTOMS, 06/13/16) Oxycodone (Verified Adverse Reaction, Unknown, GI SYMPTOMS, 06/13/16) Red Dye (Verified Adverse Reaction, Unknown, unknwn, 06/13/16) Physical Exam Vital Signs Date Time Temp Pulse Resp B/P Pulse Ox O2 Delivery O2 Flow Rate FiO2 06/13/16 13:02 36.8 69 20 151/84 96 Room Air Physical Exam GENERAL: Laying on left side, disheveled, no acute distress, non-toxic EYE EXAM: normal conjunctiva OROPHARYNX: no exudate, no erythema, lips, buccal mucosa, and tongue normal and mucous membranes are moist NECK: supple, no nuchal rigidity, no adenopathy, non-tender LUNGS: Clear to auscultation. Normal chest wall mechanics HEART: no murmurs, S1 normal and S2 normal ABDOMEN: abdomen soft, non-tender, normo-active bowel sounds, no masses, no rebound or guarding. BACK: Back is symmetrical on inspection and there is no deformity, no midline tenderness, no CVA tenderness. SKIN: no rashes and no bruising UPPER EXTREMITIES: upper extremities are grossly normal. LOWER EXTREMITIES: No pitting edema. NEURO EXAM: Normal sensorium, cranial nerves II-XII grossly intact, normal speech, no gross weakness of arms, no gross weakness of legs. Medical Decision & Procedures ER Provider Diagnostic Interpretation: Xray results as stated below per the radiologist's and my interpretation: PA CHEST RADIOGRAPH AND UPRIGHT AND SUPINE AP RADIOGRAPHS OF THE ABDOMEN CLINICAL HISTORY: Abdominal pain and diarrhea. COMPARISON STUDY: Chest radiograph June 11, 2016 per FINDINGS: Lung volumes are normal. Mild cardiomegaly is unchanged. There is no evidence of pulmonary edema. There is no consolidation. There are cholecystectomy clips. There is no free air. There is no evidence for a bowel obstruction. IMPRESSION: 1. No free air or evidence of bowel obstruction. 2. No acute cardiopulmonary findings. Electronically signed by: Tristin Hilliard M.D. 06/13/2016 2:09 PM Dictated Date/Time: 06/13/2016 2:08 PM Laboratory Results 06/13/16 14:20 Red Blood Count 4.37, Mean Corpuscular Volume 86.7, Mean Corpuscular Hemoglobin 30.2, Mean Corpuscular Hemoglobin Concent 34.8, Mean Platelet Volume 9.9, Neutrophils (%) (Auto) 58.4, Lymphocytes (%) (Auto) 31.1, Monocytes (%) (Auto) 8.9, Eosinophils (%) (Auto) 1.2, Basophils (%) (Auto) 0.2, Neutrophils # (Auto) 2.44, Lymphocytes # (Auto) 1.30, Monocytes # (Auto) 0.37, Eosinophils # (Auto) 0.05, Basophils # (Auto) 0.01 06/13/16 14:20 Test 06/13/16 14:20 White Blood Count 4.18 K/uL (4.8-10.8) Red Blood Count 4.37 M/uL (4.2-5.4) Hemoglobin 13.2 g/dL (12.0-16.0) Hematocrit 37.9 % (37-47) Mean Corpuscular Volume 86.7 fL (80-100) Mean Corpuscular Hemoglobin 30.2 pg (25-34) Mean Corpuscular Hemoglobin Concent 34.8 g/dl (32-36) Platelet Count 163 K/uL (130-400) Mean Platelet Volume 9.9 fL (7.4-10.4) Neutrophils (%) (Auto) 58.4 % Lymphocytes (%) (Auto) 31.1 % Monocytes (%) (Auto) 8.9 % Eosinophils (%) (Auto) 1.2 % Basophils (%) (Auto) 0.2 % Neutrophils # (Auto) 2.44 K/uL (1.4-6.5) Lymphocytes # (Auto) 1.30 K/uL (1.2-3.4) Monocytes # (Auto) 0.37 K/uL (0.11-0.59) Eosinophils # (Auto) 0.05 K/uL (0-0.5) Basophils # (Auto) 0.01 K/uL (0-0.2) RDW Standard Deviation 40.8 fL (36.4-46.3) RDW Coefficient of Variation 12.7 % (11.5-14.5) Immature Granulocyte % (Auto) 0.2 % Immature Granulocyte # (Auto) 0.01 K/uL (0.00-0.02) Anion Gap 8.0 mmol/L (3-11) Est Creatinine Clear Calc Drug Dose 47.1 ml/min Estimated GFR () 70.6 Estimated GFR (Non- 60.9 BUN/Creatinine Ratio 12.2 (10-20) Calcium Level 9.3 mg/dl (8.5-10.1) Total Bilirubin 0.8 mg/dl (0.2-1) Direct Bilirubin 0.2 mg/dl (0-0.2) Aspartate Amino Transf (AST/SGOT) 48 U/L (15-37) Alanine Aminotransferase (ALT/SGPT) 37 U/L (12-78) Alkaline Phosphatase 38 U/L (45-117) Total Protein 7.7 gm/dl (6.4-8.2) Albumin 3.8 gm/dl (3.4-5.0) Lipase 107 U/L (73-393) Laboratory results per my review. Medications Administered Medications (Trade) Dose Ordered Sig/Meghana Route Start Time Stop Time Status Last Admin Dose Admin Sodium Chloride (Nss 1000ml) 1,000 ml @ 999 mls/hr Q1H1M STAT IV 06/13/16 13:19 06/13/16 14:19 DC 06/13/16 14:43 999 MLS/HR Ondansetron HCl (Zofran Inj) 4 mg NOW STAT IV 06/13/16 13:19 06/13/16 13:21 DC 06/13/16 14:43 4 MG Metronidazole (Flagyl / Nss) 500 mg NOW STAT IV 06/13/16 13:28 06/13/16 13:29 DC 06/13/16 14:43 500 MG ED Course ED COURSE: Vital signs were reviewed and showed normal vitals. The patients medical record was reviewed The above diagnostic studies were performed and reviewed. ED treatments and interventions as stated above. 1310: The patient was evaluated in room B6. A complete history and physical examination was performed. 1319: Zofran Inj 4 mg IV, NSS 1000 ml @ 999 mls/hr IV. 1328: Metronidazole 500 mg IV. 1441: I discussed the patients case with KADIE Leon hospitalist. She saw the patient during her previous admission. She will discuss with one of the other PAs and they will come and evaluate the patient. 1447: Upon reevaluation, the patient is doing fine. She was able to keep down a sip of water. I discussed my findings with the patient and she understands and agrees with the treatment plan. Based on the patients age, coexisting illnesses, exam and lab findings the decision to treat as an inpatient was made. The patient remained stable while under my care. The patient will be evaluated for further management. 1513: I discussed the patient's [facility] She will evaluate the patient for further management. Medical Decision Differential Diagnosis includes but is not limited to dehydration, stroke, anemia, hypoglycemia, hyponatremia, hypernatremia, urinary tract infection, pneumonia, bronchitis, sepsis, gastroenteritis, additional abdominal pathology, metabolic abnormalities and infections. Patient is a 75-year-old female who presents the ER following a recent admission and discharge for influenza associated with demand ischemia and C. difficile colitis. Patient was discharged yesterday home with oral vancomycin. She presents today with persistent vomiting and unable to eat or drink anything. Labs show no significant leukocytosis or anemia. BMP along with LFTs , bilirubin and lipase were unremarkable. Her obstruction series was negative. She does not have a gallbladder. There is no signs of peritonitis on my exam. She was given a bolus normal saline along with Zofran. She was given IV Flagyl as she has been vomiting and has not been keeping anything down today. Patient is fairly well appearing and resting in bedside. My concern at this point is that she currently has C. difficile and needs to be tolerating her antibiotics. Since she is not tolerating oral I discussed the case with internal medicine who recently admitted and discharged her yesterday. They will evaluate her for further management. Consults Time Called: 1435 Consulting Physician: Beverly Solorio PA-C [facility] Returned Call: 1441 I discussed the patients case with her. She will discuss with one of the other PAs and they will come and evaluate the patient. Additional Consults: Time Called: 1510 Consulted Physician: Dr. Loyola [facility] hospitalist Returned Call: 1513 Additional Comments: I reviewed the patient's case with her. She will evaluate the patient for further management. Impression Primary Impression: Vomiting Additional Impressions: Clostridium difficile infection Influenza Scribe Attestation The scribe's documentation has been prepared under my direction and personally reviewed by me in its entirety. I confirm that the note above accurately reflects all work, treatment, procedures, and medical decision making performed by me. Departure Information Dispostion Being Evaluated By Hospitalist Referrals RV. Kelley MD (PCP) Patient Instructions My [facility] Problem Qualifiers Primary Impression: Vomiting Vomiting type: bilious vomiting Nausea presence: with nausea Qualified Codes: R11.14 - Bilious vomiting
[2016-06-13 16:05] LABS: URINE APPEARANCE CLEAR (CLEAR); URINE BILIRUBIN NEG (NEG); URINE COLOR YELLOW; URINE EPITHELIAL CELL AUTO 20-30 /lpf (0-5); URINE NITRITE NEG (NEG); URINE PH 6.5 (4.5-7.5); URINE SPECIFIC GRAVITY 1.004 (1.000-1.030); UROBILINOGEN NEG (NEG); ZZUR CULT IF INDIC CLEAN CATCH NO
[2016-06-13 16:10] LABS: MANUAL MICROSCOPIC REQUIRED? NO; REVIEW REQ? NO
[2016-06-13] MEDS ORDERED: MECLIZINE HCL 12.5 MG TAB PO PRN (16:30)
[2016-06-13] MEDS ORDERED: GLUCOSE 10 TABS/TUBE PO PRN (16:30)
[2016-06-13] MEDS ORDERED: GLUCAGON FOR INJ 1 MG VIAL SQ PRN (16:30)
[2016-06-13] MEDS ORDERED: ONDANSETRON INJ 2 MG/ML 2 ML VIAL IV PRN (16:30)
[2016-06-13] MEDS ORDERED: POLYETHYLENE (MIRALAX) 17 GM PACK PO PRN (16:30)
[2016-06-13] MEDS ORDERED: ALBUTEROL HFA 8 GM INHALER INH PRN (16:30)
[2016-06-13] MEDS ORDERED: MAGNESIUM HYDROXIDE SUSP 30 ML UDC PO PRN (16:30)
[2016-06-13] MEDS ORDERED: ALUMINUM/MAGNESIUM/SIMETH (MAALOX MAX) 30 ML UDC PO PRN (16:30)
[2016-06-13] MEDS ORDERED: GLUCOSE 40% GEL 15 GM TUBE PO PRN (16:30)
[2016-06-13] MEDS ORDERED: ACETAMINOPHEN 325 MG TAB PO PRN (16:30)
[2016-06-13] MEDS ORDERED: DEXTROSE 50% 50 ML SYR IV PRN (16:30)
--- NOTE | 2016-06-13 16:31 | History and Physical ---
History & Physical Date & Time of Service: Jun 13, 2016 at 16:30 Chief Complaint: Diarrhea/Vomiting Discharged Yesterday Primary Care Physician: RV. Kelley MD History of Present Illness Source: patient Ms. Carpenter is a 75 y/o female with PMHx of Diabetes Mellitus, CAD with VT S/ P Stent, CVA, S/P Cholecystectomy, Influenza B (June 2016), and C. Diff (June 2016) who presents to the ED complaining of increased nausea and vomiting that started this morning. Patient was discharged from [facility] yesterday. Prior to discharge yesterday, patient was tolerating a regular diet without noted nausea or vomiting. However this morning patient states that she woke up and took her vancomycin and approximately 2 hours later began to vomit. She has vomited a total of 3 times and is unable to keep anything down. Reports emesis is bile- like. Denies hematemesis or coffee-ground emesis. She is beginning to tolerate drinking water. Associated lightheadedness and dizziness with standing. Complains of generalized fatigue and body aches. She does report some improvement since onset of influenza and C. difficile. Reports stool remains loose however is decreasing in frequency. Denies known fevers but does feel chilled. In regards to the influenza, she continues to have a productive cough. This cough seems to be improving as she is able to take deeper breaths without developing coughing spells. In the ED, patient is afebrile with mild leukopenia. No electrolyte abnormalities noted. CXR and abdominal series obtained with no evidence of developing consolidation or obstruction. She will be admitted to [facility] for observation and further evaluation and care. Past Medical/Surgical History Medical Problems: (1) CHF (congestive heart failure) Status: Chronic (2) Diabetes Status: Chronic (3) Heart attack Status: Resolved (4) Kidney stones Status: Resolved (5) Lupus Status: Chronic (6) Stroke Status: Resolved (7) UTI (urinary tract infection) Status: Resolved (8) Vertigo Status: Chronic Surgical Problems: (1) Stented coronary artery Status: Chronic Family History Patient reports no known family medical history. Social History Smoking Status: Never Smoker Smokeless Tobacco Use: No Alcohol Use: none Drug Use: none Marital Status: Occupational Status: retired Multi-Drug Resistant Organisms History of MDRO: No Allergies Coded Allergies: Dapsone (Verified Allergy, Intermediate, RASH, 06/13/16) Sulfa Drugs (Verified Allergy, Mild, 06/13/16) Ciprofloxacin (Verified Adverse Reaction, Intermediate, "i blew up like a balloon" per pt, 06/13/16) Adhesives (Verified Adverse Reaction, Unknown, unknwn, 06/13/16) Hydrocodone (Verified Adverse Reaction, Unknown, GI SYMPTOMS, 06/13/16) Oxycodone (Verified Adverse Reaction, Unknown, GI SYMPTOMS, 06/13/16) Red Dye (Verified Adverse Reaction, Unknown, unknwn, 06/13/16) Home Medications Scheduled Albuterol Hfa (Ventolin Hfa), 1-2 PUFFS INH Q4-6H Aspirin (Aspirin 81), 81 MG PO DAILY Atorvastatin (Lipitor), 40 MG PO HS Azithromycin (Azithromycin), 250 MG PO DAILY@1800 Cranberry (Vaccinium Macrocarp (Cranberry), 1,000 MG PO DAILY Dulaglutide (Trulicity), 0.75 MG SC WK Insulin Glargine (Toujeo Solostar), 44 UNITS SC DAILY Lactobacillus (Acidophilus Probiotic), 2 TABS PO DAILY Lisinopril (Zestril), 1 TAB PO DAILY Metoprolol Succinate (Toprol Xl), 50 MG PO DAILY Oseltamivir Phosphate (Tamiflu), 75 MG PO BID Tolterodine Tartrate (Tolterodine Tartrate), 2 MG PO BID Trimethoprim (Proloprim), 100 MG PO HS Vancomycin Hcl (Vancomycin), 1 CAP PO QID Scheduled PRN Meclizine Hcl (Meclizine Hcl), 1 TAB PO Q12 PRN for Dizziness or Vertigo Review of Systems REVIEW OF SYSTEMS: General/Constitutional: +chills, +fatigue, +generalized weakness; Denies fever ENT: Denies visual changes, nasal drainage, hearing loss, sore throat, trouble swallowing Cardiovascular: Denies chest pain, palpitations, edema Respiratory: +cough, +sputum; Denies SOB, wheezing, orthopnea GI: +nausea, +vomiting, +diarrhea +cramping abdominal pain; Denies melena/ hematochezia : Denies dysuria, frequency, hematuria Musculoskeletal: +generalized body aches; Denies swelling Neurologic: +lightheadedness/dizziness; Denies numbness/tingling, weakness Psychiatric: Deferred Endocrine: Deferred Hematologic/Lymphatic: Denies bleeding/clotting abnormalities Skin: Denies rash, itch, new skin changes, easy bruising Allergy/Immunologic: Deferred Physical Exam Vital Signs Date Time Temp Pulse Resp B/P Pulse Ox O2 Delivery O2 Flow Rate FiO2 06/13/16 16:09 78 06/13/16 13:02 36.8 69 20 151/84 96 Room Air PHYSICAL EXAM:: General Appearance: WDWN in NAD who is A&O x 3 HEENT: Head is normocephalic/atraumatic; EOMI; PERRLA; Hearing grossly intact; Mucous membranes moist; Pharynx negative for exudate/lesions Neck: Supple; Trachea midline; Neg JVD; Neg lymphadenopathy Heart: RRR with no M/G/R Lungs: CTA in all lung palafox bilaterally; Respirations unlabored; Neg accessory muscle use Abdomen: Soft, non-tender, non-distended; Positive BS x 4 quadrants; Neg organomegaly Extremities: Capillary refill < 2 seconds; Neg cyanosis or edema Neurological: Speech clear; Gross motor/sensory function intact; Neg focal neurologic deficits Psychiatric: Appropriate mood/affect Skin: Normal Color; Warm/Dry; Neg rashes, ecchymosis, lacerations/ulcerations Diagnostics Laboratory Results Results Past 24 Hours Test 06/13/16 14:20 06/13/16 15:40 Range/Units White Blood Count 4.18 4.8-10.8 K/uL Red Blood Count 4.37 4.2-5.4 M/uL Hemoglobin 13.2 12.0-16.0 g/dL Hematocrit 37.9 37-47 % Mean Corpuscular Volume 86.7 80-100 fL Mean Corpuscular Hemoglobin 30.2 25-34 pg Mean Corpuscular Hemoglobin Concent 34.8 32-36 g/dl Platelet Count 163 130-400 K/uL Mean Platelet Volume 9.9 7.4-10.4 fL Neutrophils (%) (Auto) 58.4 % Lymphocytes (%) (Auto) 31.1 % Monocytes (%) (Auto) 8.9 % Eosinophils (%) (Auto) 1.2 % Basophils (%) (Auto) 0.2 % Neutrophils # (Auto) 2.44 1.4-6.5 K/uL Lymphocytes # (Auto) 1.30 1.2-3.4 K/uL Monocytes # (Auto) 0.37 0.11-0.59 K/uL Eosinophils # (Auto) 0.05 0-0.5 K/uL Basophils # (Auto) 0.01 0-0.2 K/uL RDW Standard Deviation 40.8 36.4-46.3 fL RDW Coefficient of Variation 12.7 11.5-14.5 % Immature Granulocyte % (Auto) 0.2 % Immature Granulocyte # (Auto) 0.01 0.00-0.02 K/uL Sodium Level 141 136-145 mmol/L Potassium Level 4.1 3.5-5.1 mmol/L Chloride Level 108 98-107 mmol/L Carbon Dioxide Level 25 21-32 mmol/L Anion Gap 8.0 3-11 mmol/L Blood Urea Nitrogen 11 7-18 mg/dl Creatinine 0.92 0.60-1.20 mg/dl Est Creatinine Clear Calc Drug Dose 47.1 ml/min Estimated GFR () 70.6 Estimated GFR (Non- 60.9 BUN/Creatinine Ratio 12.2 10-20 Random Glucose 130 70-99 mg/dl Calcium Level 9.3 8.5-10.1 mg/dl Total Bilirubin 0.8 0.2-1 mg/dl Direct Bilirubin 0.2 0-0.2 mg/dl Aspartate Amino Transf (AST/SGOT) 48 15-37 U/L Alanine Aminotransferase (ALT/SGPT) 37 12-78 U/L Alkaline Phosphatase 38 45-117 U/L Total Protein 7.7 6.4-8.2 gm/dl Albumin 3.8 3.4-5.0 gm/dl Lipase 107 73-393 U/L Urine Color YELLOW Urine Appearance CLEAR CLEAR Urine pH 6.5 4.5-7.5 Urine Specific Sullivan 1.004 1.000-1.030 Urine Protein NEG NEG Urine Glucose (UA) NEG NEG Urine Ketones NEG NEG Urine Occult Blood TRACE NEG Urine Nitrite NEG NEG Urine Bilirubin NEG NEG Urine Urobilinogen NEG NEG Urine Leukocyte Esterase NEG NEG Urine WBC (Auto) 1-5 0-5 /hpf Urine RBC (Auto) 0-4 0-4 /hpf Urine Hyaline Casts (Auto) 0 0-5 /lpf Urine Epithelial Cells (Auto) 20-30 0-5 /lpf Urine Bacteria (Auto) NEG NEG Diagnostic Radiology 1. PA CHEST RADIOGRAPH AND UPRIGHT AND SUPINE AP RADIOGRAPHS OF THE ABDOMEN CLINICAL HISTORY: Abdominal pain and diarrhea. COMPARISON STUDY: Chest radiograph June 11, 2016 per FINDINGS: Lung volumes are normal. Mild cardiomegaly is unchanged. There is no evidence of pulmonary edema. There is no consolidation. There are cholecystectomy clips. There is no free air. There is no evidence for a bowel obstruction. IMPRESSION: 1. No free air or evidence of bowel obstruction. 2. No acute cardiopulmonary findings. Impression Assessment and Plan Ms. Carpenter is a 75 y/o female with PMHx of Diabetes Mellitus, CAD with VT S/ P Stent, CVA, S/P Cholecystectomy, Influenza B (June 2016), and C. Diff (June 2016) who presents to the ED complaining of increased nausea and vomiting that started this morning. Nausea/Vomiting - Mild Dehydration: - NSS at 100 mL/hr Influenza B: - Zithromax 250 mg daily - Tamiflu 75 mg BID C. Diff: - Hold vancomycin and start metronidazole 500 mg IV q8H until tolerating oral intake -- Question intolerance to vancomycin? May benefit from metronidazole therapy instead Diabetes Mellitus: - Converted Toujeo to Lantus and reduce dose to 30 units daily with SSI CAD S/P VT and Stent: - ASA 81 mg daily - Lisinopril 40 mg daily and metoprolol 50 mg daily DVT prophylaxis: ALISON/SCDs Disposition: Advance diet as tolerated, hydrate, and possible D/C tomorrow ATTENDING ATTESTATION I have seen and examined patient and agree with the assessment and plan as stated above by KADIE Barragan. Patient is a 75 y.o.F PMHx of recent of recent d/c for c diff colitis, CAD and DMII who presents with nausea and vomiting. Patient was discharged yesterday with c-diff colitis. She went home and developed nausea. This morning after taking her vancomycin patient developed persistent vomiting. Denies any diarrhea Vitals- reviewed GEN- NAD CVS- RRR RESP- CTA ABD- + BS, NTND EXT- no c/c/e Labs- reviewed Patient is a 75 y.o.F PMHx of recent of recent d/c for c diff colitis, CAD and DMII who presents with nausea and vomiting. Nausea and Vomiting- ? gastroenteritis to intolerance to po vancmycin/switch vancomycin to flagyl/ clear liquid diet/ IVF fluid hydration Influenzae- tamiflu day #4/5 Level of Care Med/Surg Resuscitation Status FULL RESUSCITATION VTE Prophylaxis VTE Risk Assessment Done? Y/N: Yes Risk Level: Moderate Given or contraindicated: TGangaEDevang Stockings, SCD's
[2016-06-13 18:30] VITALS: BP 199/69; PULSE 68; TEMP 36.8; O2SAT 98
[2016-06-13] MEDS ORDERED: IV FLUIDS COMPLETED PRN (18:30)
[2016-06-13] MEDS ORDERED: HydrALAZINE HCL 20 MG/ML VIAL IV. PRN (18:45)
[2016-06-13] MEDS ORDERED: AZITHROMYCIN 250 MG TAB PO SCH (19:00)
[2016-06-13 19:30] VITALS: BP 199/69; PULSE 68; TEMP 36.8; O2SAT 98; Ht 152.4 cm; Wt 73.0 kg
[2016-06-13] MEDS: SODIUM CHLORIDE 0.9% 1000ML 1,000 ML IV SCH (19:34)
[2016-06-13] MEDS: TOLTERODINE TARTRATE 2 MG TAB PO SCH (20:03)
[2016-06-13] MEDS: OSELTAMIVIR PHOSPHATE 75 MG CAP PO SCH (20:03)
[2016-06-13] MEDS ORDERED: ATORVASTATIN 40 MG TAB PO SCH (21:00)
[2016-06-13] MEDS: INSULIN ASPART 100 UNITS/ML 3 ML PEN SC SCH (21:50)
[2016-06-13] MEDS: METRONIDAZOLE / NSS 500 MG in PREMIXED NSS 100 ML IV SCH (21:51)
[2016-06-13 23:41] VITALS: BP 145/78; PULSE 85; TEMP 36.6; O2SAT 95
[2016-06-13 23:44] VITALS: BP 137/82; PULSE 78
[2016-06-14] MEDS: SODIUM CHLORIDE 0.9% 1000ML 1,000 ML IV SCH ×2 (02:08→12:30)
[2016-06-14] MEDS: METRONIDAZOLE / NSS 500 MG in PREMIXED NSS 100 ML IV SCH (05:31)
[2016-06-14 07:03] VITALS: BP 143/75; PULSE 67; TEMP 36.9; O2SAT 94
[2016-06-14] MEDS ORDERED: INSULIN GLARGINE SOLOSTAR 100 UNITS/ML 3 ML PEN SC SCH (08:00)
[2016-06-14] MEDS ORDERED: LACTOBACILLUS ACIDOPHILUS (FLORANEX) TAB PO SCH (08:00)
[2016-06-14] MEDS ORDERED: LISINOPRIL 40 MG TAB PO SCH (08:00)
[2016-06-14] MEDS ORDERED: ASPIRIN 81 MG ECTAB PO SCH (08:00)
[2016-06-14] MEDS ORDERED: METOPROLOL SUCC 50MG EXT REL TAB PO SCH (08:00)
[2016-06-14] MEDS: TOLTERODINE TARTRATE 2 MG TAB PO SCH (08:21)
[2016-06-14] MEDS: OSELTAMIVIR PHOSPHATE 75 MG CAP PO SCH (08:23)
[2016-06-14] MEDS: INSULIN ASPART 100 UNITS/ML 3 ML PEN SC SCH ×2 (08:27→13:34)
[2016-06-14] MEDS ORDERED: MTR500 PO (11:25)
--- NOTE | 2016-06-14 11:26 | Discharge Instructions ---
Discharge Instructions Admission Admission Date: Jun 13, 2016 at 16:28 Admission Diagnosis: Vomiting. Discharge Care Plan - Problem: Medical Problems: (1) Clostridium difficile infection (2) Influenza (3) Vomiting Care Plan - Goal(s): Decrease discomfort, Improve function Care Plan - Instructions: Activity Recommendations: no limitations Recommended Home Diet: Clear Liquid Provider Instructions: Please follow up with your PCP in 1 week VTE Core Measure Inpt VTE Proph given/why not?: T.E.DGanga Stockings, SCD's Laboratory Results Test Results: Hemoglobin A1c Test 06/12/16 07:33 Range/Units Estimated Average Glucose 206 mg/dl Hemoglobin A1c 8.8 H 4.5-5.6 % Jack Ayers Recommendations: Call your doctor if: * Temperature above 101 degrees * Pain not relieved by pain medicine ordered * There is increased drainage or redness from any incision * You have any unanswered questions or concerns. Your Doctors Instructions noted above were prepared by provider Fiona Loyola.
[2016-06-14] MEDS ORDERED: NURSING VERBAL MED ORDER ONE (13:30)
[2016-06-14] MEDS ORDERED: METRONIDAZOLE 500 MG TAB PO SCH (14:00)
[2016-06-14 15:12] VITALS: BP_SYST 153; BP_SYST 166; BP_DIAS 74; BP_DIAS 93; PULSE 65; TEMP 36.8; O2SAT 98
[2016-06-14 15:16] VITALS: BP 153/74; PULSE 65; TEMP 36.8; O2SAT 98
--- NOTE | 2016-06-14 16:54 | Discharge Summary ---
Discharge Summary Date of Service Jun 14, 2016. Discharge Summary Admission Date: Jun 13, 2016 at 16:28 Discharge Date: Jun 14, 2016 Discharge Disposition: Home Principal Diagnosis: c diff colitis/ Nasuea and vomiting Problems/Secondary Diagnoses: Influenzae DMII CAD Medication Reconciliation New Medications: Metronidazole (Metronidazole) 500 Mg Tab 500 MG PO TID for 10 Days, #30 TAB Continued Medications: Albuterol Hfa (Ventolin Hfa) 200 Puffs/31293 Mcg Aers 1-2 PUFFS INH Q4-6H, #1 INHALER Aspirin (Aspirin 81) 81 Mg Tab 81 MG PO DAILY Atorvastatin (Lipitor) 40 Mg Tab 40 MG PO HS, TAB Azithromycin (Azithromycin) 250 Mg Tab 250 MG PO DAILY@1800 for 3 Days, #3 TAB Cranberry (Vaccinium Macrocarp (Cranberry) 500 Mg Cap 1000 MG PO DAILY Dulaglutide (Trulicity) 0.75 Mg/0.5 Ml Inj 0.75 MG SC WK Insulin Glargine (Toujeo Solostar) 300 Unit/Ml Inj 44 UNITS SC DAILY Lactobacillus (Acidophilus Probiotic) 100 Mg Cap 2 TABS PO DAILY Lisinopril (Zestril) 40 Mg Tab 1 TAB PO DAILY for 30 Days, #30 TAB 5 Refills Meclizine Hcl (Meclizine Hcl) 25 Mg Tab 1 TAB PO Q12 PRN for Dizziness or Vertigo for 10 Days, #20 TAB Metoprolol Succinate (Toprol Xl) 50 Mg Tab 50 MG PO DAILY, #30 TAB Oseltamivir Phosphate (Tamiflu) 75 Mg Cap 75 MG PO BID for 2 Days, #5 CAP Tolterodine Tartrate (Tolterodine Tartrate) 2 Mg Tab 2 MG PO BID Trimethoprim (Proloprim) 100 Mg Tab 100 MG PO HS, TAB Discontinued Medications: Vancomycin Hcl (Vancomycin) 125 Mg Cap 1 CAP PO QID for 13 Days, #52 CAP 0 Refills Discharge Exam Review of Systems: Constitutional: No chills Eyes: No worsening of vision ENT: No hearing loss Respiratory: No cough Cardiovascular: No chest pain Abdomen: No nausea, No pain, No vomiting Musculoskeletal: No joint pain Genitourinary - Female: No dysuria Genitourinary - Male: No hematuria Neurologic: No memory loss Endocrine: No fatigue Physical Exam: General Appearance: WD/WN, no apparent distress Eyes: normal inspection ENT: normal ENT inspection, hearing grossly normal, TMs normal Neck: supple Respiratory/Chest: chest non-tender, lungs clear Cardiovascular: regular rate, rhythm, no edema Abdomen / GI: normal bowel sounds, non tender, soft Extremities: normal inspection, no calf tenderness 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 Carpenter is a 75 y/o female with PMHx of Diabetes Mellitus, CAD with MT S/ P Stent, CVA, S/P Cholecystectomy, Influenza B (June 2016), and C. Diff (June 2016) who presents to the ED complaining of increased nausea and vomiting that starting in the am. Patient was discharged day prior with c diff colitis and influenzae and sent home with po vancomycin Nausea/Vomiting - Mild Dehydration: - thought to be 2/2 to intolerance of po vancomycin - admitted to med/surg floors - placed on IVF -placed on clear diet Influenza B: - Zithromax 250 mg daily -continued Tamiflu 75 mg BID C. Diff: - stopped po vancomycin given suspected intolerance - started on flagyl Diabetes Mellitus: - Converted Toujeo to Lantus and reduce dose to 30 units daily with SSI CAD S/P MT and Stent: - ASA 81 mg daily - Lisinopril 40 mg daily and metoprolol 50 mg daily DVT prophylaxis: ALISON/SCDs Disposition: Discharged home Total Time Spent: Greater than 30 minutes This includes examination of the patient, discharge planning, medication reconciliation, and communication with other providers. Discharge Instructions Please refer to the electronic Patient Visit Report (Discharge Instructions) for additional information.
== END 2016-06-14 16:54 | disposition home or self-care (01) ==
LOC: ENRESERVDT → ENRESERVTM → C.EDB 13:00 → C.MS4W 16:28 → EDBEDREQ 16:51
PROVIDERS: ADMIT Internal Medicine; ATTEND Internal Medicine
DX: A04.7 Enterocolitis due to Clostridium difficile (principal); J11.1 Influenza due to unidentified influenza virus with other respiratory manifestations; E86.0 Dehydration; R11.2 Nausea with vomiting, unspecified; I25.10 Atherosclerotic heart disease of native coronary artery without angina pectoris; I50.9 Heart failure, unspecified; E11.9 Type 2 diabetes mellitus without complications; I25.2 Old myocardial infarction; L93.2 Other local lupus erythematosus; Z79.82 Long term (current) use of aspirin; Z79.899 Other long term (current) drug therapy; Z79.4 Long term (current) use of insulin; Z86.73 Personal history of transient ischemic attack (TIA), and cerebral infarction without residual deficits; Z95.5 Presence of coronary angioplasty implant and graft

== ENCOUNTER 2016-06-16 15:56 | Emergency (ER) | payer OTHER ==
[~2016-06-16 15:56] MED LIST changes: +MTR500 PO; -VANC5CAP PO
[2016-06-16 16:08] VITALS: TEMP 36.8; Ht 152.4 cm
[2016-06-16] MEDS ORDERED: ONDANSETRON INJ 2 MG/ML 2 ML VIAL IV STA (17:42)
[2016-06-16] MEDS ORDERED: SODIUM CHLORIDE 0.9% 1000ML 1,000 ML IV STA (17:42)
--- NOTE | 2016-06-16 17:44 | EMERGENCY ROOM VISIT NOTE ---
History Report prepared by Christina: Hardy Chacon Under the Supervision of: Dr. Eliecer Porras D.O. 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 Associated symptoms include diarrhea that started yesterday. The patient was recently discharged from the hospital with a diagnosis of dehydration, c.diff, and the flu. She is taking Azithromycin and Flagyl as prescribed. Patient states the Flagyl is making her sick, so she does not want to be on it anymore. She has taken Vancomycin in the past. Patient has a history of CVA, Lupus, Diabetes, kidney stones, and heart surgery. 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 A total of 10 systems reviewed and were otherwise negative. Past Medical & Surgical Medical Problems: (1) CHF (congestive heart failure) (2) Diabetes (3) Heart attack (4) Kidney stones (5) Lupus (6) Stroke (7) UTI (urinary tract infection) (8) Vertigo Surgical Problems: (1) Stented coronary artery Family History Patient reports no known family medical history. Social History Smoking Status: Never Smoker Alcohol Use: none Drug Use: none Marital Status: Occupation Status: retired Current/Historical Medications Scheduled Albuterol Hfa (Ventolin Hfa), 1-2 PUFFS INH Q4-6H Aspirin (Aspirin 81), 81 MG PO DAILY Atorvastatin (Lipitor), 40 MG PO HS Azithromycin (Zithromax), 250 MG PO DAILY Cholecalciferol (Vitamin D), 1,000 UNITS PO DAILY Cranberry (Vaccinium Macrocarp (Cranberry), 1,000 MG PO DAILY Dulaglutide (Trulicity), 0.75 MG SC WK Fluticasone Propionate (Nasal) (Flonase Allergy Relief), 1 SPRAY IFTIKHAR DAILY Insulin Glargine (Toujeo Solostar), 44 UNITS SC QAM Lactobacillus (Acidophilus Probiotic), 2 TABS PO DAILY Lisinopril (Zestril), 1 TAB PO DAILY Metoprolol Succinate (Toprol Xl), 50 MG PO DAILY Metronidazole (Flagyl), 500 MG PO TID Oseltamivir Phosphate (Tamiflu), 75 MG PO BID Tamsulosin Hcl (Flomax), 0.4 MG PO HS Tolterodine Tartrate (Tolterodine Tartrate), 2 MG PO BID Trimethoprim (Proloprim), 100 MG PO HS Vancomycin Hcl (Vancomycin), 1 TAB PO QID Scheduled PRN Albuterol Sulfate (Proventil Hfa), 1 PUFF INH DIRECTED PRN for Shortness of Breath Diclofenac Sodium (Topical) (Voltaren 1% Top Gel), 1 APPLN TOP DIRECTED PRN for Pain Meclizine Hcl (Meclizine Hcl), 1 TAB PO Q12 PRN for Dizziness or Vertigo Ondansetron Hcl (Zofran), 4 MG PO DIRECTED PRN for Nausea Allergies Coded Allergies: Dapsone (Verified Allergy, Intermediate, RASH, 06/16/16) Sulfa Antibiotics (Verified Allergy, Mild, `, 06/16/16) Ciprofloxacin (Verified Adverse Reaction, Intermediate, "i blew up like a balloon" per pt, 06/16/16) Adhesives (Verified Adverse Reaction, Unknown, unknwn, 06/16/16) Hydrocodone (Verified Adverse Reaction, Unknown, GI SYMPTOMS, 06/16/16) Oxycodone (Verified Adverse Reaction, Unknown, GI SYMPTOMS, 06/16/16) Red Dye (Verified Adverse Reaction, Unknown, unknwn, 06/16/16) Physical Exam Vital Signs Date Time Temp Pulse Resp B/P Pulse Ox O2 Delivery O2 Flow Rate FiO2 06/16/16 21:00 90 20 118/70 98 06/16/16 20:00 69 20 168/87 98 Room Air 06/16/16 18:00 67 18 183/113 97 Room Air 06/16/16 16:08 36.8 70 20 180/98 97 Room Air Physical Exam GENERAL: Patient is awake, alert, and in no acute distress. Patient is resting comfortably and showing no signs of anxiety EYES: The conjunctivae are clear. The pupils are round and reactive. EARS, NOSE, MOUTH AND THROAT: The nose is without any evidence of any deformity. Mucous membranes are dry, tongue is midline NECK: The neck is nontender and supple. RESPIRATORY: Normal respiratory effort is noted there is no evidence of wheezing rhonchi or rales CARDIOVASCULAR: Regular rate and rhythm noted there no murmurs rubs or gallops normal S1 normal S2 GASTROINTESTINAL: The abdomen is soft. Bowel sounds are present in all quadrants. Abdomen is nontender MUSCULOSKELETAL/EXTREMITIES: There is no evidence of gross deformity full range of motion is noted in the hips and shoulders SKIN: There is no obvious evidence of any rash. There are no petechiae, pallor or cyanosis noted. NEUROLOGIC: Patient is awake alert and oriented x3. Medical Decision & Procedures ER Provider Diagnostic Interpretation: X-ray results as stated below per interpretation by me and the radiologist. PA CHEST WITH ABDOMINAL SERIES CLINICAL HISTORY: Generalized abdominal pain. FINDINGS: A PA chest radiograph is compared to study dated 06/13/2016. The heart is mildly enlarged and there is atherosclerotic calcification of the thoracic ureter. The pulmonary vasculature is noncongested. Chronic interstitial thickening is unchanged. Bibasilar atelectasis is observed. No airspace consolidation or large pleural effusion is identified. No pneumothorax is seen. The skeletal structures are osteopenic. Degenerative changes noted throughout the thoracic spine. The bony thorax is grossly intact. Supine and erect abdominal radiographs are compared to study dated 06/13/2016. There is a nonobstructed abdominal bowel gas pattern. No evidence of intraperitoneal free air is seen. Mild to moderate colonic fecal retention is observed. Cholecystectomy clips are identified. There are phleboliths in the pelvis. Moderate lumbosacral spondylosis is observed. The bony pelvis is intact as imaged. Sclerotic change is seen in the sacroiliac joints and pubic symphysis. IMPRESSION: 1. Cardiac enlargement with no acute cardiopulmonary abnormality. 2. Nonobstructed abdominal bowel gas pattern. No significant change from 06/13/2016. Electronically signed by: Pilo Almanzar M.D. 06/16/2016 7:06 PM Dictated Date/Time: 06/16/2016 6:57 PM Laboratory Results 06/16/16 17:50 Red Blood Count 4.41, Mean Corpuscular Volume 86.2, Mean Corpuscular Hemoglobin 30.2, Mean Corpuscular Hemoglobin Concent 35.0, Mean Platelet Volume 9.5, Neutrophils (%) (Auto) 62.3, Lymphocytes (%) (Auto) 27.2, Monocytes (%) (Auto) 8.5, Eosinophils (%) (Auto) 1.4, Basophils (%) (Auto) 0.3, Neutrophils # (Auto) 3.94, Lymphocytes # (Auto) 1.72, Monocytes # (Auto) 0.54, Eosinophils # (Auto) 0.09, Basophils # (Auto) 0.02 06/16/16 17:50 Test 06/16/16 17:40 06/16/16 17:50 Urine Color YELLOW Urine Appearance CLEAR (CLEAR) Urine pH 5.0 (4.5-7.5) Urine Specific [place] 1.017 (1.000-1.030) Urine Protein NEG (NEG) Urine Glucose (UA) NEG (NEG) Urine Ketones NEG (NEG) Urine Occult Blood NEG (NEG) Urine Nitrite NEG (NEG) Urine Bilirubin NEG (NEG) Urine Urobilinogen NEG (NEG) Urine Leukocyte Esterase SMALL (NEG) Urine WBC (Auto) 1-5 /hpf (0-5) Urine RBC (Auto) 0-4 /hpf (0-4) Urine Hyaline Casts (Auto) 1-5 /lpf (0-5) Urine Epithelial Cells (Auto) >30 /lpf (0-5) Urine Bacteria (Auto) NEG (NEG) White Blood Count 6.33 K/uL (4.8-10.8) Red Blood Count 4.41 M/uL (4.2-5.4) Hemoglobin 13.3 g/dL (12.0-16.0) Hematocrit 38.0 % (37-47) Mean Corpuscular Volume 86.2 fL (80-100) Mean Corpuscular Hemoglobin 30.2 pg (25-34) Mean Corpuscular Hemoglobin Concent 35.0 g/dl (32-36) Platelet Count 243 K/uL (130-400) Mean Platelet Volume 9.5 fL (7.4-10.4) Neutrophils (%) (Auto) 62.3 % Lymphocytes (%) (Auto) 27.2 % Monocytes (%) (Auto) 8.5 % Eosinophils (%) (Auto) 1.4 % Basophils (%) (Auto) 0.3 % Neutrophils # (Auto) 3.94 K/uL (1.4-6.5) Lymphocytes # (Auto) 1.72 K/uL (1.2-3.4) Monocytes # (Auto) 0.54 K/uL (0.11-0.59) Eosinophils # (Auto) 0.09 K/uL (0-0.5) Basophils # (Auto) 0.02 K/uL (0-0.2) RDW Standard Deviation 40.4 fL (36.4-46.3) RDW Coefficient of Variation 12.7 % (11.5-14.5) Immature Granulocyte % (Auto) 0.3 % Immature Granulocyte # (Auto) 0.02 K/uL (0.00-0.02) Anion Gap 8.0 mmol/L (3-11) Estimated GFR () 64.6 Estimated GFR (Non- 55.7 BUN/Creatinine Ratio 12.5 (10-20) Calcium Level 9.8 mg/dl (8.5-10.1) Total Bilirubin 0.7 mg/dl (0.2-1) Direct Bilirubin 0.2 mg/dl (0-0.2) Aspartate Amino Transf (AST/SGOT) 79 U/L (15-37) Alanine Aminotransferase (ALT/SGPT) 71 U/L (12-78) Alkaline Phosphatase 38 U/L (45-117) Total Protein 8.0 gm/dl (6.4-8.2) Albumin 3.9 gm/dl (3.4-5.0) Lipase 127 U/L (73-393) Laboratory results per my review. Medications Administered Medications (Trade) Dose Ordered Sig/Meghana Route Start Time Stop Time Status Last Admin Dose Admin Sodium Chloride (Nss 1000ml) 1,000 ml @ 999 mls/hr Q1H1M STAT IV 06/16/16 17:42 06/16/16 18:42 DC 06/16/16 18:31 999 MLS/HR Ondansetron HCl (Zofran Inj) 4 mg NOW STAT IV 06/16/16 17:42 06/16/16 17:43 DC 06/16/16 18:31 4 MG Vancomycin HCl (Vancomycin Oral Soln) 125 mg ONE STAT PO 06/16/16 18:05 06/16/16 18:06 DC 06/16/16 18:05 125 MG Raspberry (Raspberry Syrup 5ml Cup) 5 ml ONE ONCE PO 06/16/16 18:45 06/16/16 18:46 DC 06/16/16 19:03 5 ML ED Course 1735: The patient was evaluated in room C9. A complete history and physical examination were performed. 174: Ordered Zofran Injection 4 mg IV, Sodium Chloride 1,000 ml @ 999 mls/hr IV. 180: Ordered Vancomycin HCL 125 mg PO. 1844: Ordered Raspberry Syrup 5 ml Cup PO. 2015: Upon reevaluation, the patient is resting more comfortably. I discussed the results and treatment plan with the patient and her family. They verbalized agreement of the treatment plan. She was discharged home. Medical Decision Differential diagnosis: Etiologies such as gastroenteritis, food borne illness, infections, appendicitis , diverticulitis, inflammatory bowel disease, obstruction, GI bleed, biliary pathology, as well as others were entertained. Nursing notes reviewed. The patient is a 75-year-old female who was recently admitted to our facility for C. difficile colitis. She started having increasing loose bowel movements but she was not tolerating the Flagyl and did not want to take anymore. She was treated with IV fluids as well as oral vancomycin. She was encouraged to drink plenty clear liquids and continue all medications as prescribed. She was also encouraged to follow-up with her family doctor this week for reevaluation but return to the emergency department immediately if symptoms change worsen or the need arises. Impression Primary Impression: C. difficile colitis Additional Impression: Dehydration Scribe Attestation The scribe's documentation has been prepared under my direction and personally reviewed by me in its entirety. I confirm that the note above accurately reflects all work, treatment, procedures, and medical decision making performed by me. Departure Information Dispostion Home / Self-Care Prescriptions Vancomycin Hcl (Vancomycin) 125 Mg Cap 1 TAB PO QID, #40 TAB Prov: Eliecer Porras, 06/16/16 Referrals RV. Kelley MD (PCP) Forms HOME CARE DOCUMENTATION FORM, IMPORTANT VISIT INFORMATION Patient Instructions My [facility] Additional Instructions Continue all medications as prescribed. Drink plenty of clear liquids. Follow- up with your family doctor this week for reevaluation. Problem Qualifiers
[2016-06-16] MEDS ORDERED: ALBUAER INH (18:02)
[2016-06-16] MEDS ORDERED: ONDA4TAB46 PO (18:02)
[2016-06-16] MEDS ORDERED: TAMS0.4C38 PO (18:02)
[2016-06-16] MEDS ORDERED: NF406 PO (18:02)
[2016-06-16] MEDS ORDERED: CHOL100010 PO (18:02)
[2016-06-16] MEDS ORDERED: METR-163 PO (18:02)
[2016-06-16] MEDS ORDERED: AZIT250T PO (18:02)
[2016-06-16] MEDS ORDERED: FLUT0.15 NAE (18:02)
[2016-06-16] MEDS ORDERED: DICL1GEL12 TOP (18:02)
[2016-06-16] MEDS ORDERED: VANCOMYCIN HCL 125 MG/2.5ML SOLN PO STA (18:05)
[2016-06-16 18:08] LABS: BASO % 0.3 %; BASO ABS # 0.02 K/uL (0-0.2); COMPLETE YES; EOS % 1.4 %; IG% 0.3 %; LYMPH % 27.2 %; LYMPH ABS # 1.72 K/uL (1.2-3.4); MEAN CELL VOLUME 86.2 fL (80-100); MEAN CORPUSCULAR HEMOGLOBIN 30.2 pg (25-34); MEAN PLATELET VOLUME 9.5 fL (7.4-10.4); MONO % 8.5 %; NEUT % 62.3 %; PLATELET COUNT 243 K/uL (130-400); RED BLOOD COUNT 4.41 M/uL (4.2-5.4); WHITE BLOOD COUNT 6.33 K/uL (4.8-10.8)
[2016-06-16 18:15] LABS: URINE APPEARANCE CLEAR (CLEAR); URINE BILIRUBIN NEG (NEG); URINE COLOR YELLOW; URINE EPITHELIAL CELL AUTO >30 /lpf (0-5); URINE NITRITE NEG (NEG); URINE SPECIFIC GRAVITY 1.017 (1.000-1.030); UROBILINOGEN NEG (NEG)
[2016-06-16 18:18] LABS: MANUAL MICROSCOPIC REQUIRED? NO; REVIEW REQ? NO
[2016-06-16 18:26] LABS: ALT/SGPT 71 U/L (12-78); AST/SGOT 79 U/L (15-37); BLOOD UREA NITROGEN 12 mg/dl (7-18); BUN/CREATININE RATIO 12.5 (10-20); CALCIUM 9.8 mg/dl (8.5-10.1); CARBON DIOXIDE 28 mmol/L (21-32); CHLORIDE 107 mmol/L (98-107); CREATININE 0.99 mg/dl (0.60-1.20); GLUCOSE 139 mg/dl (70-99); SODIUM 143 mmol/L (136-145)
[2016-06-16 18:29] LABS: ALKALINE PHOSPHATASE 38 U/L (45-117)
[2016-06-16] MEDS ORDERED: RASPBERRY SYRUP 5 ML UDP PO ONE (18:45)
--- NOTE | 2016-06-16 19:09 | DIAGNOSTIC IMAGING REPORT ---
PA CHEST WITH ABDOMINAL SERIES CLINICAL HISTORY: Generalized abdominal pain. FINDINGS: A PA chest radiograph is compared to study dated 06/13/2016. The heart is mildly enlarged and there is atherosclerotic calcification of the thoracic ureter. The pulmonary vasculature is noncongested. Chronic interstitial thickening is unchanged. Bibasilar atelectasis is observed. No airspace consolidation or large pleural effusion is identified. No pneumothorax is seen. The skeletal structures are osteopenic. Degenerative changes noted throughout the thoracic spine. The bony thorax is grossly intact. Supine and erect abdominal radiographs are compared to study dated 06/13/2016. There is a nonobstructed abdominal bowel gas pattern. No evidence of intraperitoneal free air is seen. Mild to moderate colonic fecal retention is observed. Cholecystectomy clips are identified. There are phleboliths in the pelvis. Moderate lumbosacral spondylosis is observed. The bony pelvis is intact as imaged. Sclerotic change is seen in the sacroiliac joints and pubic symphysis. IMPRESSION: 1. Cardiac enlargement with no acute cardiopulmonary abnormality. 2. Nonobstructed abdominal bowel gas pattern. No significant change from 06/13/2016. Electronically signed by: Pilo Almanzar M.D. 06/16/2016 7:06 PM Dictated Date/Time: 06/16/2016 6:57 PM
[2016-06-16] MEDS ORDERED: VANC5CAP PO (20:15)
[2016-06-16 21:00] VITALS: BP 118/70; PULSE 90; O2SAT 98
== END 2016-06-16 21:00 | disposition home or self-care (01) ==
LOC: C.EDB 15:57 → C.EDC 21:00
DX: A04.7 Enterocolitis due to Clostridium difficile (principal); E86.0 Dehydration; Z87.39 Personal history of other diseases of the musculoskeletal system and connective tissue; E11.9 Type 2 diabetes mellitus without complications; I50.9 Heart failure, unspecified; M32.9 Systemic lupus erythematosus, unspecified; Z95.2 Presence of prosthetic heart valve; Z86.73 Personal history of transient ischemic attack (TIA), and cerebral infarction without residual deficits; Z79.82 Long term (current) use of aspirin; Z87.442 Personal history of urinary calculi

== ENCOUNTER → 2016-06-21 | Outpatient (CLI) | payer OTHER ==
[~2016-06-21] MED LIST changes: +ALBUAER INH; +APIX1TAB3 PO; -AZIT-57 PO; +AZIT250T PO; +CEPH500C2 PO; +CHOL100010 PO; +DICL1GEL12 TOP; +DOXY100C76 PO; +FLUT0.15 NAE; +METR-163 PO; -MTR500 PO; +NF406 PO; +ONDA4TAB10 SL; +ONDA4TAB46 PO; +TAMS0.4C38 PO; -TMF75 PO; +VANC5CAP PO
[2016-06-21 13:23] LABS: ALKALINE PHOSPHATASE 39 U/L (45-117); ALT/SGPT 47 U/L (12-78); AST/SGOT 31 U/L (15-37); BLOOD UREA NITROGEN 14 mg/dl (7-18); BUN/CREATININE RATIO 14.3 (10-20); CALCIUM 9.1 mg/dl (8.5-10.1); CARBON DIOXIDE 25 mmol/L (21-32); CHLORIDE 109 mmol/L (98-107); CHOLESTEROL 136 mg/dl (0-200); CREATININE 0.99 mg/dl (0.60-1.20); GLUCOSE 137 mg/dl (70-99); HDL CHOLESTEROL 45 mg/dl; LDL CHOLESTEROL CALCULATED 39 mg/dl; POTASSIUM 3.7 mmol/L (3.5-5.1); SODIUM 144 mmol/L (136-145); TRIGLYCERIDES 260 mg/dl (0-150); VERY LOW DENSITY LIPOPROT CALC 52 mg/dl
[2016-06-21 14:15] LABS: MAGNESIUM 1.8 mg/dl (1.8-2.4)
[2016-06-21 14:45] LABS: RATIO 8.6 mcg/mg (0-30.0)
--- NOTE | 2016-06-26 12:49 | CODING QUERY MEDICAL NECESSITY ---
SUPPORTING DIAGNOSIS NEEDED A supporting diagnosis is required for the test/procedure performed on this patient in order for us to be reimbursed by the patient's insurance. Please provide a supporting diagnosis for the following test/procedure listed below next to the test name along with your signature. *If there is no additional diagnosis for this patient that would support the following test/procedure please document that below next to the test/procedure. Test(s)/Procedure(s) that require a supporting diagnosis: DOS 06/21 * Vitamin D DIAGNOSIS: Provider Signature: Date: Thank you Alexa Alicia Health Information Management Once completed, please kindly fax back to [phone] For questions please call [phone]
== END | disposition home or self-care (01) ==
LOC: C.LABPBG 08:31
PROVIDERS: ATTEND Internal Medicine
DX: E11.65 Type 2 diabetes mellitus with hyperglycemia (principal); E78.5 Hyperlipidemia, unspecified; E87.8 Other disorders of electrolyte and fluid balance, not elsewhere classified; R26.9 Unspecified abnormalities of gait and mobility; M10.9 Gout, unspecified; G62.9 Polyneuropathy, unspecified

== ENCOUNTER → 2016-09-14 | Outpatient (CLI) | payer OTHER ==
[~2016-09-14] MED LIST changes: -APIX1TAB3 PO; -METO-452 PO; +METO1TAB66 PO; -TRIM100T2 PO; +TRIM100T20 PO
[2016-09-14 12:52] LABS: ESTIMATED AVERAGE GLUCOSE 171 mg/dl; HA1C FLAG Normal (Normal)
[2016-09-14 17:25] LABS: ALT/SGPT 27 U/L (12-78); AST/SGOT 22 U/L (15-37); BLOOD UREA NITROGEN 21 mg/dl (7-18); BUN/CREATININE RATIO 21.4 (10-20); CALCIUM 9.6 mg/dl (8.5-10.1); CARBON DIOXIDE 28 mmol/L (21-32); CHLORIDE 104 mmol/L (98-107); GLUCOSE 251 mg/dl (70-99); POTASSIUM 3.9 mmol/L (3.5-5.1); SODIUM 140 mmol/L (136-145)
[2016-09-14 17:32] LABS: ALB/GLOB RATIO 1.1 (0.9-2); ALKALINE PHOSPHATASE 50 U/L (45-117)
[2016-09-14 17:42] LABS: URINE APPEARANCE CLEAR (CLEAR); URINE BILIRUBIN NEG (NEG); URINE COLOR YELLOW; URINE EPITHELIAL CELL AUTO >30 /lpf (0-5); URINE NITRITE NEG (NEG); URINE SPECIFIC GRAVITY 1.022 (1.000-1.030); UROBILINOGEN NEG (NEG); ZZUR CULT IF INDIC CLEAN CATCH NO
[2016-09-14 17:57] LABS: MANUAL MICROSCOPIC REQUIRED? NO; REVIEW REQ? YES
[2016-09-14 18:07] LABS: RATIO 17.3 mcg/mg (0-30.0)
== END | disposition home or self-care (01) ==
LOC: C.LABPBG 11:10
PROVIDERS: ATTEND Neuromusculoskeletal Medicine & OMM
DX: E11.65 Type 2 diabetes mellitus with hyperglycemia (principal); E55.9 Vitamin D deficiency, unspecified

== ENCOUNTER 2016-09-16 12:41 | Emergency (ER) | payer OTHER ==
[~2016-09-16] VITALS: Ht 152.4 cm; Wt 73.0 kg
[~2016-09-16 12:41] MED LIST changes: -CEPH500C2 PO; -DOXY100C76 PO; -ONDA4TAB10 SL
[2016-09-16 12:49] VITALS: TEMP 36.4; Ht 152.4 cm; Wt 73.0 kg
[2016-09-16] MEDS ORDERED: SODIUM CHLORIDE 0.9% 250ML 250 ML IV STA (13:21)
[2016-09-16] MEDS ORDERED: ONDANSETRON INJ 2 MG/ML 2 ML VIAL IV STA (13:21)
[2016-09-16] MEDS ORDERED: LISINOPRIL 5 MG TAB PO ONE (13:30)
[2016-09-16 13:36] LABS: BASO % 0.4 %; BASO ABS # 0.03 K/uL (0-0.2); COMPLETE YES; EOS % 1.8 %; HEMATOCRIT 40.1 % (37-47); IG% 0.1 %; LYMPH % 21.7 %; LYMPH ABS # 1.47 K/uL (1.2-3.4); MEAN CELL VOLUME 88.7 fL (80-100); MEAN CORPUSCULAR HEMOGLOBIN 30.5 pg (25-34); MEAN CORPUSCULAR HGB CONC 34.4 g/dl (32-36); MEAN PLATELET VOLUME 10.2 fL (7.4-10.4); MONO % 6.9 %; NEUT % 69.1 %; PLATELET COUNT 199 K/uL (130-400); RED BLOOD COUNT 4.52 M/uL (4.2-5.4); WHITE BLOOD COUNT 6.78 K/uL (4.8-10.8)
[2016-09-16] MEDS ORDERED: DOXY100C76 PO (13:40)
[2016-09-16] MEDS ORDERED: CEPH500C2 PO (13:40)
[2016-09-16 13:44] LABS: BUN/CREATININE RATIO 23.6 (10-20); CALCIUM 9.9 mg/dl (8.5-10.1); CREATININE 0.92 mg/dl (0.60-1.20); POTASSIUM 4.1 mmol/L (3.5-5.1)
[2016-09-16] MEDS ORDERED: METOPROLOL SUCC 50MG EXT REL TAB PO STA (13:44)
[2016-09-16] MEDS ORDERED: LISINOPRIL 40 MG TAB PO ONE (13:45)
--- NOTE | 2016-09-16 13:59 | DIAGNOSTIC IMAGING REPORT ---
CHEST ONE VIEW PORTABLE CLINICAL HISTORY: eval for pnea chest pain COMPARISON STUDY: 06/16/2016 FINDINGS: Mild stable cardia megaly. Diaphragms are smooth. Lungs are clear. IMPRESSION: Mild stable cardiomegaly. No acute process. The above report was generated using voice recognition software. It may contain grammatical, syntax or spelling errors. Electronically signed by: Jc Vines M.D. 09/16/2016 1:58 PM Dictated Date/Time: 09/16/2016 1:57 PM
[2016-09-16] MEDS ORDERED: ONDA4TAB10 SL (16:32)
[2016-09-16 17:01] VITALS: BP 159/103; PULSE 70; O2SAT 96
--- NOTE | 2016-09-16 17:17 | EMERGENCY ROOM VISIT NOTE ---
History Report prepared by Christina: Amie Watson Under the Supervision of: Dr. Hung Palomino M.D. First contact with patient: 13:08 Chief Complaint: HYPERTENSION Stated Complaint: HIGH BP, VOMITING History of Present Illness The patient is a 75 year old female who presents to the Emergency Room with complaints of intermittent nausea and vomiting that began two days ago. She currently rates her discomfort as a 7/10 in severity. The patient states that in June she had c-diff. She states that two days ago she was started on Keflex for two recent tick bites. She was then seen by her doctor in [place]. She did get a Lyme test. She does not know the result but she was placed on doxycycline. The patient states that she started vomiting, but denies any hematemesis. She states that she has been vomiting all her medication back up. The patient states that she has a history of hypertension, and reports that she has been hypertensive today. She has been having problems with her blood pressure and has seen her doctor for this. She is scheduled to see her commercial real estate assistant and 4 days for further management of her blood pressure. She additionally reports dizziness and abdominal pain. The patient states that at 11 AM today she developed chest discomfort and had difficulty breathing. She states it feels nothing like her previous pain with her ME. She stated it just felt like an annoying feeling in the middle of her chest which lasted only a few minutes. The patient states that she has been experiencing diarrhea. No hematochezia. She says her diarrhea does not feel anything like when she had C. difficile. Source of History: patient Onset: two days ago Position: other (global) Symptom Intensity: 7/10 Quality: other (nausea and vomiting) Timing: intermittent Associated Symptoms: + chest pain, + SOB, + abdominal pain, + diarrhea Note: Associated Symptoms: dizziness Review of Systems See HPI for pertinent positives & negatives. A total of 10 systems reviewed and were otherwise negative. Past Medical & Surgical Medical Problems: (1) CHF (congestive heart failure) (2) Diabetes (3) Heart attack (4) Kidney stones (5) Lupus (6) Stroke (7) UTI (urinary tract infection) (8) Vertigo Surgical Problems: (1) Stented coronary artery Family History Patient reports no known family medical history. Social History Smoking Status: Never Smoker Alcohol Use: none Drug Use: none Marital Status: Occupation Status: retired Current/Historical Medications Scheduled Albuterol Hfa (Ventolin Hfa), 1-2 PUFFS INH Q4-6H Aspirin (Aspirin 81), 81 MG PO DAILY Atorvastatin (Lipitor), 40 MG PO HS Cephalexin Monohydrate (Keflex), 500 MG PO TID Cholecalciferol (Vitamin D), 1,000 UNITS PO DAILY Cranberry (Vaccinium Macrocarp (Cranberry), 1,000 MG PO DAILY Doxycycline Monohydrate (Monodox), 100 MG PO Q12 Dulaglutide (Trulicity), 0.75 MG SC WK Insulin Glargine (Toujeo Solostar), 44 UNITS SC QAM Lactobacillus (Acidophilus Probiotic), 200 MG PO DAILY Lisinopril (Zestril), 40 MG PO DAILY Metoprolol Succinate (Toprol Xl), 50 MG PO DAILY Ondasetron Odt (Zofran Odt), 4 MG SL Q6H Tamsulosin Hcl (Flomax), 0.4 MG PO HS Tolterodine Tartrate (Tolterodine Tartrate), 2 MG PO BID Scheduled PRN Albuterol Sulfate (Proventil Hfa), 1 PUFF INH DIRECTED PRN for Shortness of Breath Diclofenac Sodium (Topical) (Voltaren 1% Top Gel), 1 APPLN TOP DIRECTED PRN for Pain Meclizine Hcl (Meclizine Hcl), 25 MG PO Q12 PRN for Dizziness or Vertigo Ondansetron Hcl (Zofran), 4 MG PO DIRECTED PRN for Nausea Allergies Coded Allergies: Dapsone (Verified Allergy, Intermediate, RASH, 09/16/16) Sulfa Antibiotics (Verified Allergy, Mild, `, 09/16/16) Ciprofloxacin (Verified Adverse Reaction, Intermediate, "i blew up like a balloon" per pt, 09/16/16) Adhesives (Verified Adverse Reaction, Unknown, unknwn, 09/16/16) Hydrocodone (Verified Adverse Reaction, Unknown, GI SYMPTOMS, 09/16/16) Oxycodone (Verified Adverse Reaction, Unknown, GI SYMPTOMS, 09/16/16) Red Dye (Verified Adverse Reaction, Unknown, unknwn, 09/16/16) Physical Exam Vital Signs Date Time Temp Pulse Resp B/P (MAP) Pulse Ox O2 Delivery O2 Flow Rate FiO2 09/16/16 17:01 70 20 159/103 96 09/16/16 16:11 76 18 177/95 09/16/16 14:48 67 186/110 09/16/16 14:12 68 09/16/16 13:55 70 16 179/92 97 09/16/16 12:57 201/129 09/16/16 12:49 36.4 68 16 201/94 97 Room Air Physical Exam Constitutional: Vital signs reviewed, patient is hypertensive. Eyes: Pupils are equal round reactive to light. Conjunctiva are noninjected. ENT: Pharynx is clear without erythema or exudate. Mucous membranes are dry. Neck supple without meningeal signs. Respiratory: Clear to auscultation bilaterally. Breath sounds are equal bilaterally. Cardiovascular: Regular rate and rhythm. No rubs or gallops. GI: Soft, nondistended and nontender. Bowel sounds are present. Musculoskeletal: No peripheral edema. No lower extremity tenderness. Integumentary: No cyanosis. Neurological: The patient is awake and alert. No focal deficits. Psychiatric: Normal affect. Medical Decision & Procedures ER Provider Diagnostic Interpretation: X-ray results as stated below per interpretation by me and the radiologist: CHEST ONE VIEW PORTABLE CLINICAL HISTORY: eval for pnea chest pain COMPARISON STUDY: 06/16/2016 FINDINGS: Mild stable cardia megaly. Diaphragms are smooth. Lungs are clear. IMPRESSION: Mild stable cardiomegaly. No acute process. The above report was generated using voice recognition software. It may contain grammatical, syntax or spelling errors. Electronically signed by: Jc Vnies M.D. 09/16/2016 1:58 PM Dictated Date/Time: 09/16/2016 1:57 PM Laboratory Results 09/16/16 13:00 Red Blood Count 4.52, Mean Corpuscular Volume 88.7, Mean Corpuscular Hemoglobin 30.5, Mean Corpuscular Hemoglobin Concent 34.4, Mean Platelet Volume 10.2, Neutrophils (%) (Auto) 69.1, Lymphocytes (%) (Auto) 21.7, Monocytes (%) (Auto) 6.9, Eosinophils (%) (Auto) 1.8, Basophils (%) (Auto) 0.4, Neutrophils # (Auto) 4.68, Lymphocytes # (Auto) 1.47, Monocytes # (Auto) 0.47, Eosinophils # (Auto) 0.12, Basophils # (Auto) 0.03 09/16/16 13:00 Test 09/16/16 13:00 09/16/16 16:12 White Blood Count 6.78 K/uL (4.8-10.8) Red Blood Count 4.52 M/uL (4.2-5.4) Hemoglobin 13.8 g/dL (12.0-16.0) Hematocrit 40.1 % (37-47) Mean Corpuscular Volume 88.7 fL (80-100) Mean Corpuscular Hemoglobin 30.5 pg (25-34) Mean Corpuscular Hemoglobin Concent 34.4 g/dl (32-36) Platelet Count 199 K/uL (130-400) Mean Platelet Volume 10.2 fL (7.4-10.4) Neutrophils (%) (Auto) 69.1 % Lymphocytes (%) (Auto) 21.7 % Monocytes (%) (Auto) 6.9 % Eosinophils (%) (Auto) 1.8 % Basophils (%) (Auto) 0.4 % Neutrophils # (Auto) 4.68 K/uL (1.4-6.5) Lymphocytes # (Auto) 1.47 K/uL (1.2-3.4) Monocytes # (Auto) 0.47 K/uL (0.11-0.59) Eosinophils # (Auto) 0.12 K/uL (0-0.5) Basophils # (Auto) 0.03 K/uL (0-0.2) RDW Standard Deviation 41.6 fL (36.4-46.3) RDW Coefficient of Variation 13.0 % (11.5-14.5) Immature Granulocyte % (Auto) 0.1 % Immature Granulocyte # (Auto) 0.01 K/uL (0.00-0.02) Anion Gap 8.0 mmol/L (3-11) Est Creatinine Clear Calc Drug Dose 47.1 ml/min Estimated GFR () 70.6 Estimated GFR (Non- 60.9 BUN/Creatinine Ratio 23.6 (10-20) Calcium Level 9.9 mg/dl (8.5-10.1) Total Bilirubin 0.8 mg/dl (0.2-1) Direct Bilirubin 0.2 mg/dl (0-0.2) Aspartate Amino Transf (AST/SGOT) 22 U/L (15-37) Alanine Aminotransferase (ALT/SGPT) 29 U/L (12-78) Alkaline Phosphatase 51 U/L (45-117) Total Protein 7.6 gm/dl (6.4-8.2) Albumin 3.8 gm/dl (3.4-5.0) Lipase 190 U/L (73-393) Bedside Troponin I < 0.030 ng/ml (0-0.045) Laboratory results as reviewed by me. Medications Administered Medications (Trade) Dose Ordered Sig/Meghana Route Start Time Stop Time Status Last Admin Dose Admin Ondansetron HCl (Zofran Inj) 4 mg NOW STAT IV 09/16/16 13:21 09/16/16 13:27 DC 09/16/16 13:40 4 MG Sodium Chloride 250 ml @ 999 mls/hr Q16M STAT IV 09/16/16 13:21 09/16/16 13:36 DC 09/16/16 13:42 999 MLS/HR Lisinopril (Zestril Tab) 40 mg NOW ONCE PO 09/16/16 13:45 09/16/16 13:46 DC 09/16/16 13:50 40 MG Metoprolol Succinate (Toprol Xl Tab) 50 mg NOW STAT PO 09/16/16 13:44 09/16/16 13:45 DC 09/16/16 13:54 50 MG ECG Indication: chest pain Rhythm: sinus rhythm Findings: 1st degree AV block, no acute ischemic change, no ectopy ED Course 1312: The patient was evaluated in room B10. A complete history and physical exam was performed. 1321: Ordered Sodium Chloride 250 ml @ 999 mls/hr IV, Zofran Inj 4 mg IV. 1330: Ordered Lisinopril 40 mg PO. 1344: Ordered Toprol XI Tab 50 mg PO. 1445: I reevaluated the patient and she is still unable to provide a stool sample. She states that she is starting to feel better, and her blood pressure has improved. 1616: I reevaluated the patient and she is eating a sandwich and has had no diarrhea. Her second troponin is running. Her blood pressure is 177/95. 1627: I reevaluated the patient and she is resting comfortably. Her second troponin is negative. I discussed all the exam findings with her and I discussed the treatment plan. She verbalized complete understanding and agreement. She ate and has no further complaints. She is ready to go home. Medical Decision This is a 75-year-old female who presents with vomiting, diarrhea and chest discomfort. Differential diagnosis includes food borne illness, gastroenteritis , C. difficile colitis, dehydration, electrolyte abnormality, acute coronary syndrome, esophagitis. I did perform a limited focused review of portions of the patient's old chart on the electronic medical record. The patient she was here in June for vomiting and diarrhea. She was diagnosed with c-diff colitis. She was discharged with Vancomycin. Blood Pressure Screening: Patient was found to have an elevated blood pressure and was referred to their primary doctor for recheck and further treatment. Medication Reconciliation: I attest that I have personally reviewed the patient' s current medication list. I did evaluate the patient as noted above. The patient is presenting with vomiting and diarrhea. She was unable to give us a stool sample to check for C. difficile but states that her diarrhea does not feel like her prior C. difficile. She did have some transient chest pain which she states felt not at all like her prior cardiac chest pain. IV access was established. The patient was placed on a continuous pathology laboratory aide. I did treat her with Zofran IV. She was also given normal saline IV and given her blood pressure medications, lisinopril and Toprol-XL. I did order and personally review the patient's 12- lead EKG and chest x-ray as described above. I did order and review the patient 's blood work as noted in the electronic medical record. Labs are unremarkable including troponin which was negative 2. Her blood pressure did come down significantly. On reassessment she is eating a sandwich and has no symptoms. I did discuss the test results with the patient. She was advised follow closely with her doctor and keep her appointment with the commercial real estate assistant. She was discharged with a prescription for Zofran. Impression Primary Impression: Vomiting and diarrhea Additional Impressions: Acute chest pain Poorly-controlled hypertension Scribe Attestation The scribe's documentation has been prepared under my direct and personally reviewed by me in its entirety. I confirm that the note above accurately reflects all work, treatment, procedures, and medical decision making performed by me. Departure Information Dispostion Home / Self-Care Prescriptions Ondasetron Odt (ZOFRAN ODT) 4 Mg Tab 4 MG SL Q6H for Nausea, #10 TAB Prov: Hung Palomino M.D. 09/16/16 Referrals RV. Kelley MD (PCP) Forms HOME CARE DOCUMENTATION FORM, IMPORTANT VISIT INFORMATION, WORK / SCHOOL INSTRUCTIONS Patient Instructions ED Chest Pain Atypical Unkn Cause, My [facility], Vomit Diarrhea Self Care Additional Instructions You have been examined and treated today on an emergency basis only. This is not a substitute for, or an effort to provide, complete comprehensive medical care. It is impossible to recognize and treat all injuries or illnesses in a single emergency department visit. It is therefore important that you follow up closely with your physician. Call as soon as possible for an appointment. Return for worsening symptoms or if you develop fever or any other concerning symptoms. Problem Qualifiers
== END 2016-09-16 17:01 | disposition home or self-care (01) ==
LOC: C.EDB 12:42
DX: R11.10 Vomiting, unspecified (principal); R19.7 Diarrhea, unspecified; R07.9 Chest pain, unspecified; I10 Essential (primary) hypertension; E11.9 Type 2 diabetes mellitus without complications; I50.9 Heart failure, unspecified; M32.9 Systemic lupus erythematosus, unspecified; Z98.61 Coronary angioplasty status; Z86.73 Personal history of transient ischemic attack (TIA), and cerebral infarction without residual deficits; Z87.440 Personal history of urinary (tract) infections; Z87.442 Personal history of urinary calculi; Z79.82 Long term (current) use of aspirin; Z79.4 Long term (current) use of insulin; Z79.899 Other long term (current) drug therapy; Z88.2 Allergy status to sulfonamides; Z88.5 Allergy status to narcotic agent; Z88.8 Allergy status to other drugs, medicaments and biological substances; Z91.09 Other allergy status, other than to drugs and biological substances

== ENCOUNTER 2016-09-25 20:48 | Emergency (ER) | payer OTHER ==
[~2016-09-25] VITALS: Ht 152.4 cm; Wt 75.4 kg
[~2016-09-25 20:48] MED LIST changes: -AZIT250T PO; +CEPH500C2 PO; +DOXY100C76 PO; -FLUT0.15 NAE; -METR-163 PO; -NF406 PO; +ONDA4TAB10 SL; -TRIM100T20 PO; -VANC5CAP PO
[2016-09-25 20:51] VITALS: BP 207/91; PULSE 72; TEMP 36.7; O2SAT 96; Ht 152.4 cm; Wt 75.4 kg
== END 2016-09-25 23:10 | disposition left against medical advice (07) ==
LOC: C.EDB 20:49 → C.EDC 23:10
DX: M25.531 Pain in right wrist (principal)

== ENCOUNTER → 2016-09-26 | Outpatient (CLI) | payer OTHER ==
--- NOTE | 2016-09-26 13:31 | DIAGNOSTIC IMAGING REPORT ---
EXTREMITY NONVASCULAR LIMITED HISTORY: 76 years-old Female M malady of the dorsal right wrist region. COMPARISON: None available TECHNIQUE: Multiple real-time sonographic images of the soft tissues of the dorsal wrist were obtained assessing grayscale appearance, color and spectral flow. FINDINGS: There is a focal echogenic thrombus, 0.5 x 2.1 x 0.8 cm in a branch of the radial vein with minimal flow seen at this level compatible with partially occlusive thrombus. Flow is also seen within the radial vein both proximal and distal to the thrombus. Radial artery is patent with normal triphasic flow. The ulnar vein is also compressible. Compressible vessels are seen at the level of the antecubital fossa. IMPRESSION: 1. Partially occlusive thrombus involves a branch of the radial vein on the dorsal aspect of the wrist. 2. Flow is seen within the radial vein both proximal and distal to the thrombus. The above report was generated using voice recognition software. It may contain grammatical, syntax or spelling errors. Electronically signed by: Niranjan Valdez M.D. 09/26/2016 1:29 PM Dictated Date/Time: 09/26/2016 1:24 PM
== END | disposition home or self-care (01) ==
LOC: C.ULTR 12:39
PROVIDERS: ATTEND Physician Assistant
DX: R22.31 Localized swelling, mass and lump, right upper limb (principal)

== ENCOUNTER 2017-01-15 10:17 | Emergency (ER) | payer OTHER ==
[~2017-01-15] VITALS: Ht 152.4 cm; Wt 75.0 kg
[~2017-01-15 10:17] MED LIST changes: +METO-452 PO; -METO1TAB66 PO
[2017-01-15 10:23] VITALS: TEMP 36.5; Ht 152.4 cm; Wt 75.0 kg
[2017-01-15] MEDS ORDERED: APIX1TAB3 PO (10:52)
[2017-01-15 11:05] LABS: BASO % 0.4 %; BASO ABS # 0.03 K/uL (0-0.2); COMPLETE YES; EOS % 1.6 %; HEMATOCRIT 38.7 % (37-47); IG% 0.3 %; LYMPH % 32.2 %; LYMPH ABS # 2.41 K/uL (1.2-3.4); MEAN CELL VOLUME 88.2 fL (80-100); MEAN CORPUSCULAR HEMOGLOBIN 30.5 pg (25-34); MEAN CORPUSCULAR HGB CONC 34.6 g/dl (32-36); MEAN PLATELET VOLUME 9.9 fL (7.4-10.4); MONO % 6.7 %; NEUT % 58.8 %; PLATELET COUNT 200 K/uL (130-400); RED BLOOD COUNT 4.39 M/uL (4.2-5.4); WHITE BLOOD COUNT 7.49 K/uL (4.8-10.8)
[2017-01-15 11:16] LABS: INR 1.1 (0.9-1.1); PARTIAL THROMBOPLASTIN RATIO 1.1; PROTHROMBIN TIME (PATIENT) 11.7 SECONDS (9.0-12.0)
[2017-01-15 11:22] LABS: BUN/CREATININE RATIO 27.1 (10-20); CALCIUM 9.9 mg/dl (8.5-10.1); CREATININE 0.93 mg/dl (0.60-1.20); POTASSIUM 3.8 mmol/L (3.5-5.1)
--- NOTE | 2017-01-15 12:03 | DIAGNOSTIC IMAGING REPORT ---
RIGHT LOWER EXTREMITY VENOUS DOPPLER HISTORY: right lower leg swelling, despite eliquis use COMPARISON STUDY: None. FINDINGS: There is normal compressibility, flow, and augmentation within the right lower extremity deep venous system. IMPRESSION: No DVT within the right lower extremity Electronically signed by: Shady Le M.D. 01/15/2017 12:01 PM Dictated Date/Time: 01/15/2017 12:01 PM
--- NOTE | 2017-01-15 12:04 | DIAGNOSTIC IMAGING REPORT ---
RIGHT UPPER EXTREMITY VENOUS DOPPLER HISTORY: right upper arm swelling in to right anterior neck COMPARISON STUDY: Right arm doppler 09/26/2016. FINDINGS: The right internal jugular vein is patent. There is normal flow within the right subclavian vein. There is normal flow and compressibility within the right axillary, basilic, brachial, radial, ulnar, and visualized cephalic veins. There is nonocclusive thrombus seen within a branch of the radial vein which has improved. IMPRESSION: No DVT within the right upper extremity. 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 Electronically signed by: Shady Le M.D. 01/15/2017 12:03 PM Dictated Date/Time: 01/15/2017 12:01 PM
[2017-01-15 12:23] VITALS: BP 146/86; PULSE 76; O2SAT 96
--- NOTE | 2017-01-15 12:30 | EMERGENCY ROOM VISIT NOTE ---
History Report prepared by Christina: Abdelrahman Vegas Under the Supervision of: Dr. Wilner Price M.D. First contact with patient: 10:37 Chief Complaint: OTHER COMPLAINT Stated Complaint: BLOOD CLOTS IN ARM History of Present Illness The patient is a 76 year old female who presents to the Emergency Room with complaints of constant right arm swelling beginning today. She also complains of neck pain, right arm and shoulder pain, and right leg pain. She is on Eliquis. Per daughter, the patient was diagnosed with blood clots of the right arm four months ago. The patient denies any increased SOB, chest pain, or abdominal pain. She has no history of cancer. Source of History: patient Onset: Today Position: arm (right) Quality: other (swelling) Timing: constant Associated Symptoms: + neck pain, No chest pain, No SOB (increased), No abdominal pain Note: The patient also complains of right arm and shoulder pain, and right leg pain. Review of Systems See HPI for pertinent positives & negatives. A total of 10 systems reviewed and were otherwise negative. Past Medical & Surgical Medical Problems: (1) CHF (congestive heart failure) (2) Diabetes (3) Heart attack (4) Kidney stones (5) Lupus (6) Stroke (7) UTI (urinary tract infection) (8) Vertigo Surgical Problems: (1) Stented coronary artery Family History Patient reports no known family medical history. Social History Smoking Status: Never Smoker Alcohol Use: none Drug Use: none Marital Status: Occupation Status: retired Current/Historical Medications Scheduled Albuterol Hfa (Ventolin Hfa), 1-2 PUFFS INH Q4-6H Apixaban (Eliquis), 5 MG PO BID Aspirin (Aspirin 81), 81 MG PO DAILY Atorvastatin (Lipitor), 40 MG PO HS Cholecalciferol (Vitamin D), 1,000 UNITS PO DAILY Cranberry (Vaccinium Macrocarp (Cranberry), 1,000 MG PO DAILY Dulaglutide (Trulicity), 0.75 MG SC WK Insulin Glargine (Toujeo Solostar), 44 UNITS SC QAM Lactobacillus (Acidophilus Probiotic), 200 MG PO DAILY Lisinopril (Zestril), 40 MG PO DAILY Metoprolol Succinate (Toprol Xl), 50 MG PO DAILY Ondasetron Odt (Zofran Odt), 4 MG SL Q6H Tamsulosin Hcl (Flomax), 0.4 MG PO HS Tolterodine Tartrate (Tolterodine Tartrate), 2 MG PO BID Scheduled PRN Diclofenac Sodium (Topical) (Voltaren 1% Top Gel), 1 APPLN TOP DIRECTED PRN for Pain Meclizine Hcl (Meclizine Hcl), 25 MG PO Q12 PRN for Dizziness or Vertigo Ondansetron Hcl (Zofran), 4 MG PO DIRECTED PRN for Nausea Allergies Coded Allergies: Dapsone (Verified Allergy, Intermediate, RASH, 01/15/17) Sulfa Antibiotics (Verified Allergy, Mild, `, 01/15/17) Latex (Unverified Allergy, Unknown, UNKNOWN, 01/15/17) Ciprofloxacin (Verified Adverse Reaction, Intermediate, "i blew up like a balloon" per pt, 01/15/17) Adhesives (Verified Adverse Reaction, Unknown, unknwn, 09/16/16) Hydrocodone (Verified Adverse Reaction, Unknown, GI SYMPTOMS, 01/15/17) Oxycodone (Verified Adverse Reaction, Unknown, GI SYMPTOMS, 01/15/17) Red Dye (Verified Adverse Reaction, Unknown, unknwn, 01/15/17) Physical Exam Vital Signs Date Time Temp Pulse Resp B/P (MAP) Pulse Ox O2 Delivery O2 Flow Rate FiO2 01/15/17 12:23 76 18 146/86 96 01/15/17 10:23 36.5 73 18 179/101 97 Physical Exam GENERAL: Patient is mildly anxious appearing and in no acute distress. HEENT: No acute trauma, normocephalic atraumatic, mucous membranes moist, no nasal congestion, no scleral icterus. NECK: No stridor, no adenopathy, no meningismus, trachea is midline. LUNGS: No dyspnea. Clear to auscultation and equal bilaterally. No wheeze, no rhonchi. HEART: Regular rate and rhythm. No murmurs, rubs, gallops appreciated. ABDOMEN: Soft, nontender, bowel sounds positive, no masses appreciated, no peritonitis. BACK: No midline tenderness, no CVA tenderness EXTREMITIES: Normal motion all extremities, no cyanosis, no edema. Enlarged right arm and right leg compared to left side. Increased vascularity of the right arm and leg. NEUROLOGIC: Alert and oriented, no acute motor or sensory deficits, no focal weakness, cranial nerves grossly intact. SKIN: No rash, no jaundice, no diaphoresis. Medical Decision & Procedures ER Provider Diagnostic Interpretation: Radiology results and stated below per my review and radiologist interpretation: RIGHT LOWER EXTREMITY VENOUS DOPPLER FINDINGS: There is normal compressibility, flow, and augmentation within the right lower extremity deep venous system. IMPRESSION: No DVT within the right lower extremity Electronically signed by: Shady Le M.D. 01/15/2017 12:01 PM RIGHT UPPER EXTREMITY VENOUS DOPPLER FINDINGS: The right internal jugular vein is patent. There is normal flow within the right subclavian vein. There is normal flow and compressibility within the right axillary, basilic, brachial, radial, ulnar, and visualized cephalic veins. There is nonocclusive thrombus seen within a branch of the radial vein which has improved. IMPRESSION: No DVT within the right upper extremity. 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 Electronically signed by: Shady Le M.D. 01/15/2017 12:03 PM Laboratory Results 01/15/17 10:51 Red Blood Count 4.39, Mean Corpuscular Volume 88.2, Mean Corpuscular Hemoglobin 30.5, Mean Corpuscular Hemoglobin Concent 34.6, Mean Platelet Volume 9.9, Neutrophils (%) (Auto) 58.8, Lymphocytes (%) (Auto) 32.2, Monocytes (%) (Auto) 6.7, Eosinophils (%) (Auto) 1.6, Basophils (%) (Auto) 0.4, Neutrophils # (Auto) 4.41, Lymphocytes # (Auto) 2.41, Monocytes # (Auto) 0.50, Eosinophils # (Auto) 0.12, Basophils # (Auto) 0.03 01/15/17 10:51 Test 01/15/17 10:51 White Blood Count 7.49 K/uL (4.8-10.8) Red Blood Count 4.39 M/uL (4.2-5.4) Hemoglobin 13.4 g/dL (12.0-16.0) Hematocrit 38.7 % (37-47) Mean Corpuscular Volume 88.2 fL (80-100) Mean Corpuscular Hemoglobin 30.5 pg (25-34) Mean Corpuscular Hemoglobin Concent 34.6 g/dl (32-36) Platelet Count 200 K/uL (130-400) Mean Platelet Volume 9.9 fL (7.4-10.4) Neutrophils (%) (Auto) 58.8 % Lymphocytes (%) (Auto) 32.2 % Monocytes (%) (Auto) 6.7 % Eosinophils (%) (Auto) 1.6 % Basophils (%) (Auto) 0.4 % Neutrophils # (Auto) 4.41 K/uL (1.4-6.5) Lymphocytes # (Auto) 2.41 K/uL (1.2-3.4) Monocytes # (Auto) 0.50 K/uL (0.11-0.59) Eosinophils # (Auto) 0.12 K/uL (0-0.5) Basophils # (Auto) 0.03 K/uL (0-0.2) RDW Standard Deviation 41.6 fL (36.4-46.3) RDW Coefficient of Variation 13.0 % (11.5-14.5) Immature Granulocyte % (Auto) 0.3 % Immature Granulocyte # (Auto) 0.02 K/uL (0.00-0.02) Prothrombin Time 11.7 SECONDS (9.0-12.0) Prothromb Time International Ratio 1.1 (0.9-1.1) Activated Partial Thromboplast Time 28.7 SECONDS (21.0-31.0) Partial Thromboplastin Ratio 1.1 Anion Gap 11.0 mmol/L (3-11) Est Creatinine Clear Calc Drug Dose 46.6 ml/min Estimated GFR () 69.2 Estimated GFR (Non- 59.7 BUN/Creatinine Ratio 27.1 (10-20) Calcium Level 9.9 mg/dl (8.5-10.1) Laboratory results as reviewed by me. ED Course 1038: The patient was evaluated in room B2. A complete history and physical exam was performed. 1240: Reevaluated the patient. Discussed results and discharge instructions: she verbalized understanding and agreement. The patient is ready for discharge. Medical Decision 76 yr old female arrives for evaluation of right arm swelling. She notes this is new but admits DVT treatment for last few months with julian. She feels right leg is swollen as well. No pitting edema, no evidence compartment syndrome N/V intact. She has normal right leg US. She has improving small thrombus right distal arm. She is not shob, no cp, no syncope, no PE findings. She will follow up with cards as planned. Labs look normal and she wishes to go home. Family comfortable with this plan. Medication Reconcilliation Current Medication List: was personally reviewed by me Blood Pressure Screening Patient's blood pressure: Elevated blood pressure Blood pressure disposition: Referred to PCP Impression Primary Impression: Swelling of right upper extremity Scribe Attestation The scribe's documentation has been prepared under my direction and personally reviewed by me in its entirety. I confirm that the note above accurately reflects all work, treatment, procedures, and medical decision making performed by me. Departure Information Dispostion Home / Self-Care Referrals RV. Kelley MD (PCP) Patient Instructions My [facility] Additional Instructions Keep your appointments as currently scheduled. Keep taking your Eliquis. Return immediately if difficulty breathing, chest pain, passing out, increased pain/swelling or other concerns.
== END 2017-01-15 12:43 | disposition home or self-care (01) ==
LOC: C.EDB 10:18
DX: M79.89 Other specified soft tissue disorders (principal); Z86.718 Personal history of other venous thrombosis and embolism; I50.9 Heart failure, unspecified; E11.9 Type 2 diabetes mellitus without complications; I25.2 Old myocardial infarction; Z87.442 Personal history of urinary calculi; Z87.440 Personal history of urinary (tract) infections; Z79.01 Long term (current) use of anticoagulants; Z79.82 Long term (current) use of aspirin; Z79.899 Other long term (current) drug therapy

== ENCOUNTER 2017-02-11 13:32 | Emergency (ER) | payer OTHER ==
[~2017-02-11] VITALS: Ht 152.4 cm; Wt 76.3 kg
[~2017-02-11 13:32] MED LIST changes: -ALBUAER INH; +APIX1TAB3 PO; -CEPH500C2 PO; -DOXY100C76 PO
[2017-02-11 13:42] VITALS: TEMP 36.7; Ht 152.4 cm; Wt 76.3 kg
[2017-02-11 13:54] VITALS: O2SAT 99
[2017-02-11] MEDS ORDERED: HYDROmorphone INJ 0.5 MG/0.5 ML SYR IV STA ×2 (14:03→15:54)
[2017-02-11] MEDS ORDERED: ONDANSETRON INJ 2 MG/ML 2 ML VIAL IV STA (14:03)
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
[2017-02-11 14:15] LABS: BASO % 0.4 %; BASO ABS # 0.03 K/uL (0-0.2); COMPLETE YES; EOS % 2.1 %; HEMATOCRIT 38.6 % (37-47); IG% 0.3 %; LYMPH % 35.6 %; LYMPH ABS # 2.54 K/uL (1.2-3.4); MEAN CELL VOLUME 89.6 fL (80-100); MEAN CORPUSCULAR HEMOGLOBIN 30.4 pg (25-34); MEAN CORPUSCULAR HGB CONC 33.9 g/dl (32-36); MEAN PLATELET VOLUME 9.9 fL (7.4-10.4); MONO % 5.7 %; NEUT % 55.9 %; PLATELET COUNT 189 K/uL (130-400); RED BLOOD COUNT 4.31 M/uL (4.2-5.4); WHITE BLOOD COUNT 7.14 K/uL (4.8-10.8)
[2017-02-11 14:23] LABS: BUN/CREATININE RATIO 27.6 (10-20); CALCIUM 9.4 mg/dl (8.5-10.1); CREATININE 0.87 mg/dl (0.60-1.20); POTASSIUM 3.6 mmol/L (3.5-5.1)
[2017-02-11] MEDS ORDERED: OPTIRAY 320 IV PRN (14:30)
--- NOTE | 2017-02-11 14:44 | DIAGNOSTIC IMAGING REPORT ---
CHEST ONE VIEW PORTABLE HISTORY: 76 years-old Female CHEST PAIN acute atypical chest pain COMPARISON: Chest radiographs 09/16/2016 TECHNIQUE: Portable AP view of the chest FINDINGS: Cardiac silhouette is again moderately enlarged. Atherosclerosis of the aorta. No pneumothorax, pleural effusion, focal airspace consolidation or overt pulmonary edema. Bones of the chest appear grossly intact. Surgical clips of the right upper abdomen suggest prior cholecystectomy. IMPRESSION: No acute cardiopulmonary process. The above report was generated using voice recognition software. It may contain grammatical, syntax or spelling errors. Electronically signed by: Niranjan Valdez M.D. 02/11/2017 2:42 PM Dictated Date/Time: 02/11/2017 2:41 PM
--- NOTE | 2017-02-11 15:35 | DIAGNOSTIC IMAGING REPORT ---
CHEST CT WITH CONTRAST CT DOSE: 1029.70 mGy.cm HISTORY: Acute atypical chest pain Pt c/o left rib pain TECHNIQUE: Multiaxial CT images of the chest, abdomen and pelvis were performed following the intravenous administration of contrast. 94 ml Optiray 320 IV contrast. A dose lowering technique was utilized adhering to the principles of ALARA. COMPARISON: Chest radiograph of same day. FINDINGS: CT CHEST: Multinodular thyroid with nodules inferior right thyroid measuring up to 1.4 cm. No pathologic adenopathy of the chest identified. There is mild multichamber cardiac enlargement. Coronary arterial calcifications noted. Mild to moderate atherosclerosis of the aorta. Imaged great vessels appear patent. There is no aortic dissection or aneurysm. The opacified pulmonary arterial tree is unremarkable. No pneumothorax, pleural effusion or focal airspace consolidation. Multifocal subpleural reticular opacities suggest areas of chronic scarring. 5 mm perifissural lymph node is seen adjacent to the right middle lobe, image 124 series 4. 3 mm solid noncalcified pulmonary nodule of the right upper lobe is seen on image 96 of series 4. 3 mm nodule of the right lower lobe is seen on image 102 series 4. These are likely benign. Central airways are patent. Soft tissues of the chest appear unremarkable. The ribs appear intact without acute fracture identified. Multilevel endplate spurring with moderately demineralized appearance of the bones. CT ABDOMEN/PELVIS: Prior cholecystectomy. The liver, spleen, pancreas and right adrenal gland are unremarkable. Indeterminate soft tissue attenuating 1.6 x 1.1 cm smoothly marginated ovoid lesion of the left adrenal gland is noted. Multifocal parenchymal thinning is noted of the kidneys, left greater than right with areas of cortical lobulation. Areas of low-attenuation within the kidneys measuring up to 4 mm suggests renal cysts. External renal pelvis is noted on the left. No renal calculi or hydronephrosis. Urinary bladder, uterus and adnexa are unremarkable. There is mild atherosclerosis of the aorta. No bulky adenopathy identified. Small duodenal diverticulum. No bowel obstruction or focal bowel wall thickening. Mild colonic diverticulosis without diverticulitis. Mild to moderate stool volume suggests constipation. The appendix is not seen and may be surgically absent. Soft tissues are unremarkable. Diastases recti. Multilevel facet arthropathy of the lumbar spine. IMPRESSION: 1. No acute intrathoracic, intra-abdominal or intrapelvic abnormality identified. 2. No lobar airspace consolidation to suggest pneumonia. 3. Mild colonic diverticulosis without diverticulitis. 4. Mild to moderate colonic stool volume suggests constipation. 5. Prior cholecystectomy. Electronically signed by: Niranjan Valdez M.D. 02/11/2017 3:34 PM Dictated Date/Time: 02/11/2017 3:23 PM
[2017-02-11] MEDS ORDERED: LIDODERM (LIDOCAINE) PATCH 5% TD STA ×2 (15:44→15:53)
[2017-02-11] MEDS ORDERED: METOCLOPRAMIDE HCL INJ 5 MG/ML 2 ML VIAL IV STA (15:54)
[2017-02-11] MEDS ORDERED: VALA1TAB2 PO (16:01)
[2017-02-11] MEDS ORDERED: DOCU-94 PO (16:01)
[2017-02-11] MEDS ORDERED: SENN1TAB77 PO (16:01)
[2017-02-11] MEDS ORDERED: NF656 TD (16:01)
[2017-02-11] MEDS ORDERED: ACET-749 PO (16:01)
[2017-02-11] MEDS ORDERED: ONDA4TAB10 SL (16:02)
[2017-02-11 16:37] VITALS: BP 191/101; PULSE 70; O2SAT 98
== END 2017-02-11 17:12 | disposition home or self-care (01) ==
LOC: C.EDB 13:35 → C.EDA 17:12
DX: B02.9 Zoster without complications (principal); I11.0 Hypertensive heart disease with heart failure; E11.9 Type 2 diabetes mellitus without complications; I25.2 Old myocardial infarction; Z87.442 Personal history of urinary calculi; Z87.440 Personal history of urinary (tract) infections; Z86.73 Personal history of transient ischemic attack (TIA), and cerebral infarction without residual deficits; Z79.82 Long term (current) use of aspirin; Z79.899 Other long term (current) drug therapy

== ENCOUNTER 2017-02-15 14:07 | Emergency (ER) | payer OTHER ==
[~2017-02-15] VITALS: Ht 152.4 cm; Wt 75.8 kg
[~2017-02-15 14:07] MED LIST changes: +ACET-749 PO; -APIX1TAB3 PO; -CHOL100010 PO; -DICL1GEL12 TOP; +DOCU-94 PO; +NF656 TD; -ONDA4TAB46 PO; +SENN1TAB77 PO; -TAMS0.4C38 PO; +VALA1TAB2 PO
[2017-02-15 14:11] VITALS: TEMP 37.1; O2SAT 99; Ht 152.4 cm; Wt 75.8 kg
[2017-02-15 14:25] LABS: BASO % 0.2 %; BASO ABS # 0.02 K/uL (0-0.2); COMPLETE YES; HEMATOCRIT 43.3 % (37-47); IG% 0.2 %; LYMPH % 22.8 %; LYMPH ABS # 1.97 K/uL (1.2-3.4); MEAN CELL VOLUME 89.5 fL (80-100); MEAN CORPUSCULAR HEMOGLOBIN 30.2 pg (25-34); MEAN CORPUSCULAR HGB CONC 33.7 g/dl (32-36); MEAN PLATELET VOLUME 10.5 fL (7.4-10.4); MONO % 5.4 %; NEUT % 70.4 %; PLATELET COUNT 218 K/uL (130-400); RED BLOOD COUNT 4.84 M/uL (4.2-5.4); WHITE BLOOD COUNT 8.63 K/uL (4.8-10.8)
--- NOTE | 2017-02-15 14:31 | DIAGNOSTIC IMAGING REPORT ---
SINGLE VIEW CHEST CLINICAL HISTORY: Fever. Sepsis. FINDINGS: An AP, portable, upright chest radiograph is compared to chest x-ray and chest CT dated 02/11/2017. The examination is degraded by portable technique and patient rotation. The heart is enlarged and there is atherosclerotic calcification of the thoracic aorta. The pulmonary vasculature is noncongested. Chronic interstitial thickening is similar to previous. There are mild bibasilar airspace opacities. No large pleural effusion or pneumothorax is seen. The skeletal structures are osteopenic. The bony thorax is grossly intact. IMPRESSION: 1. Cardiomegaly without radiographic evidence of congestive failure. 2. There are bibasilar airspace opacities, likely representing atelectasis. Correlate clinically for evidence of superimposed pneumonia/aspiration pneumonitis. This could be better assessed with a PA and lateral examination if clinically warranted. Electronically signed by: Pilo Almanzar M.D. 02/15/2017 2:30 PM Dictated Date/Time: 02/15/2017 2:28 PM
[2017-02-15 14:50] LABS: PROTHROMBIN TIME (PATIENT) 10.7 SECONDS (9.0-12.0)
[2017-02-15 14:53] LABS: BUN/CREATININE RATIO 25.7 (10-20); CALCIUM 9.3 mg/dl (8.5-10.1); CREATININE 0.94 mg/dl (0.60-1.20); POTASSIUM 3.9 mmol/L (3.5-5.1)
[2017-02-15 14:58] LABS: CKMB/CK RATIO 1.4 (0-3.0)
[2017-02-15] MEDS ORDERED: DOCU-94 PO (15:24)
[2017-02-15] MEDS ORDERED: SENN-61 PO (15:24)
[2017-02-15] MEDS ORDERED: VALA1TAB31 PO (15:24)
[2017-02-15] MEDS ORDERED: LDDP5 TOP (15:24)
[2017-02-15] MEDS ORDERED: METOPROLOL SUCC 50MG EXT REL TAB PO STA (15:26)
[2017-02-15] MEDS ORDERED: NRN100 PO (15:27)
[2017-02-15] MEDS ORDERED: LISINOPRIL 10 MG TAB PO ONE (15:30)
--- NOTE | 2017-02-15 15:38 | EMERGENCY ROOM VISIT NOTE ---
History Report prepared by Christina: Abdelrahman Vegas Under the Supervision of: Dr. Rogelio Vinson D.O. First contact with patient: 14:11 Chief Complaint: CARDIAC ASSESSMENT Stated Complaint: CHEST PAIN History of Present Illness The patient is a 76 year old female who presents to the Emergency Room with complaints of constant left sided chest pain beginning this week. She has a history of a bruised rib on the left side, and states that the pain from her bruised rib radiates into her neck, head, and left shoulder. The patient's chest pain is worsened with deep breathing and coughing. She denies any shortness of breath. Source of History: patient Onset: This week Position: chest (left) Timing: constant Modifying Factors (Worsening): breathing (deep), other (coughing) Associated Symptoms: + headache, + neck pain, No SOB Note: Additional symptoms: left shoulder pain. Review of Systems See HPI for pertinent positives & negatives. A total of 10 systems reviewed and were otherwise negative. Past Medical & Surgical Medical Problems: (1) CHF (congestive heart failure) (2) Diabetes (3) Heart attack (4) Kidney stones (5) Lupus (6) Stroke (7) UTI (urinary tract infection) (8) Vertigo Surgical Problems: (1) Stented coronary artery Family History Patient reports no known family medical history. Social History Smoking Status: Never Smoker Alcohol Use: none Drug Use: none Marital Status: Occupation Status: retired Current/Historical Medications Scheduled Albuterol Hfa (Ventolin Hfa), 1-2 PUFFS INH Q4-6H Aspirin (Aspirin 81), 81 MG PO DAILY Atorvastatin (Lipitor), 40 MG PO HS Cholecalciferol (Vitamin D), 1,000 UNITS PO DAILY Cranberry (Vaccinium Macrocarp (Cranberry), 1,000 MG PO DAILY Docusate Sodium (Colace), 1 CAP PO BID Dulaglutide (Trulicity), 0.75 MG SC WK Gabapentin (Gabapentin), 100 MG PO BID Insulin Glargine (Toujeo Solostar), 44 UNITS SC QAM Lactobacillus (Acidophilus Probiotic), 200 MG PO DAILY Lidocaine (Lidocaine), 1 PATCH TOP DAILY Lisinopril (Zestril), 40 MG PO DAILY Metoprolol Succinate (Toprol Xl), 50 MG PO DAILY Ondasetron Odt (Zofran Odt), 4 MG SL Q6H Senna (Senokot), 1 TAB PO HS Tamsulosin Hcl (Flomax), 0.4 MG PO HS Tolterodine Tartrate (Tolterodine Tartrate), 2 MG PO BID Valacyclovir Hcl (Valtrex), 1 GM PO TID Scheduled PRN Diclofenac Sodium (Topical) (Voltaren 1% Top Gel), 1 APPLN TOP DIRECTED PRN for Pain Meclizine Hcl (Meclizine Hcl), 25 MG PO Q12 PRN for Dizziness or Vertigo Allergies Coded Allergies: Dapsone (Verified Allergy, Intermediate, RASH, 02/11/17) Sulfa Antibiotics (Verified Allergy, Mild, `, 02/11/17) Latex (Unverified Allergy, Unknown, UNKNOWN, 02/11/17) Ciprofloxacin (Verified Adverse Reaction, Intermediate, "i blew up like a balloon" per pt, 02/11/17) Adhesives (Verified Adverse Reaction, Unknown, unknwn, 02/11/17) Hydrocodone (Verified Adverse Reaction, Unknown, GI SYMPTOMS, 02/11/17) Oxycodone (Verified Adverse Reaction, Unknown, GI SYMPTOMS, 02/11/17) Red Dye (Verified Adverse Reaction, Unknown, unknwn, 02/11/17) Physical Exam Vital Signs Date Time Temp Pulse Resp B/P (MAP) Pulse Ox O2 Delivery O2 Flow Rate FiO2 02/15/17 14:56 82 22 197/108 96 Room Air 02/15/17 14:16 99 Room Air 02/15/17 14:11 37.1 78 20 99 Room Air 02/15/17 14:11 99 Room Air Physical Exam CONSTITUTIONAL/VITAL SIGNS: Reviewed / noted above. GENERAL: Non-toxic in appearance. INTEGUMENTARY: Warm, dry, and [place]. HEAD: Normocephalic. EYES: without scleral icterus or trauma. ENT/OROPHARYNX: clear and moist. LYMPHADENOPATHY/NECK: Is supple without lymphadenopathy or meningismus. RESPIRATORY: Lungs clear and equal. CARDIOVASCULAR: Regular rate and rhythm. GI/ABDOMEN: Soft and nontender. No organomegaly or pulsatile mass. No rebound or guarding. Normal bowel sounds. EXTREMITIES: Warm and well perfused. BACK: No CVA tenderness. NEUROLOGICAL: Intact without focal deficits. PSYCHIATRIC: normal affect. MUSCULOSKELETAL: Normally developed with good muscle tone. Medical Decision & Procedures ER Provider Diagnostic Interpretation: Radiology results as stated below per my review and radiologist interpretation: SINGLE VIEW CHEST FINDINGS: An AP, portable, upright chest radiograph is compared to chest x-ray and chest CT dated 02/11/2017. The examination is degraded by portable technique and patient rotation. The heart is enlarged and there is atherosclerotic calcification of the thoracic aorta. The pulmonary vasculature is noncongested. Chronic interstitial thickening is similar to previous. There are mild bibasilar airspace opacities. No large pleural effusion or pneumothorax is seen. The skeletal structures are osteopenic. The bony thorax is grossly intact. IMPRESSION: 1. Cardiomegaly without radiographic evidence of congestive failure. 2. There are bibasilar airspace opacities, likely representing atelectasis. Correlate clinically for evidence of superimposed pneumonia/aspiration pneumonitis. This could be better assessed with a PA and lateral examination if clinically warranted. Electronically signed by: Pilo Almanzar M.D. 02/15/2017 2:30 PM Laboratory Results 02/15/17 14:15 Red Blood Count 4.84, Mean Corpuscular Volume 89.5, Mean Corpuscular Hemoglobin 30.2, Mean Corpuscular Hemoglobin Concent 33.7, Mean Platelet Volume 10.5, Neutrophils (%) (Auto) 70.4, Lymphocytes (%) (Auto) 22.8, Monocytes (%) (Auto) 5.4, Eosinophils (%) (Auto) 1.0, Basophils (%) (Auto) 0.2, Neutrophils # (Auto) 6.06, Lymphocytes # (Auto) 1.97, Monocytes # (Auto) 0.47, Eosinophils # (Auto) 0.09, Basophils # (Auto) 0.02 02/15/17 14:15 Test 02/15/17 14:15 White Blood Count 8.63 K/uL (4.8-10.8) Red Blood Count 4.84 M/uL (4.2-5.4) Hemoglobin 14.6 g/dL (12.0-16.0) Hematocrit 43.3 % (37-47) Mean Corpuscular Volume 89.5 fL (80-100) Mean Corpuscular Hemoglobin 30.2 pg (25-34) Mean Corpuscular Hemoglobin Concent 33.7 g/dl (32-36) Platelet Count 218 K/uL (130-400) Mean Platelet Volume 10.5 fL (7.4-10.4) Neutrophils (%) (Auto) 70.4 % Lymphocytes (%) (Auto) 22.8 % Monocytes (%) (Auto) 5.4 % Eosinophils (%) (Auto) 1.0 % Basophils (%) (Auto) 0.2 % Neutrophils # (Auto) 6.06 K/uL (1.4-6.5) Lymphocytes # (Auto) 1.97 K/uL (1.2-3.4) Monocytes # (Auto) 0.47 K/uL (0.11-0.59) Eosinophils # (Auto) 0.09 K/uL (0-0.5) Basophils # (Auto) 0.02 K/uL (0-0.2) RDW Standard Deviation 42.3 fL (36.4-46.3) RDW Coefficient of Variation 13.0 % (11.5-14.5) Immature Granulocyte % (Auto) 0.2 % Immature Granulocyte # (Auto) 0.02 K/uL (0.00-0.02) Prothrombin Time 10.7 SECONDS (9.0-12.0) Prothromb Time International Ratio 1.0 (0.9-1.1) Activated Partial Thromboplast Time 26.4 SECONDS (21.0-31.0) Partial Thromboplastin Ratio 1.0 Anion Gap 7.0 mmol/L (3-11) Est Creatinine Clear Calc Drug Dose 46.3 ml/min Estimated GFR () 68.3 Estimated GFR (Non- 58.9 BUN/Creatinine Ratio 25.7 (10-20) Calcium Level 9.3 mg/dl (8.5-10.1) Total Bilirubin 0.7 mg/dl (0.2-1) Direct Bilirubin 0.2 mg/dl (0-0.2) Aspartate Amino Transf (AST/SGOT) 20 U/L (15-37) Alanine Aminotransferase (ALT/SGPT) 24 U/L (12-78) Alkaline Phosphatase 63 U/L (45-117) Total Creatine Kinase 117 U/L (26-192) Creatine Kinase MB 1.6 ng/ml (0.5-3.6) Creatine Kinase MB Ratio 1.4 (0-3.0) Troponin I 0.028 ng/ml (0-0.045) Total Protein 7.9 gm/dl (6.4-8.2) Albumin 4.0 gm/dl (3.4-5.0) Lipase 191 U/L (73-393) Laboratory results as stated above per my review. ECG Indication: chest pain Rate (beats per minute): 75 Rhythm: normal sinus Findings: no acute ischemic change, no ectopy ED Course 1415: Previous medical records were reviewed. The patient was evaluated in room A10. A complete history and physical examination was performed. 1526: Ordered Toprol XI Tab 50 mg PO. 1530: Ordered Zestril Tab 40 mg PO. 1532: On reevaluation, the patient is resting comfortably. I discussed the results and findings with the patient. She verbalized agreement of the treatment plan. The patient was discharged home. Medical Decision the differential was considered includes acute myocardial infarction, acute coronary syndrome, myocarditis, pericarditis, pericardial effusions/tamponade, esophageal perforation, thoracic aortic dissection, pulmonary embolism, pneumonia, pneumothorax, pancreatitis, shingles, acute cholecystitis, perforated abdominal viscus. This is a 76-year-old female who presents to the ED with a chief complaint of left-sided sharp chest pain that radiates into the shoulder, neck and head. She states that it has been going on since this morning and seems to be worse when she coughs or sneezes. She was given aspirin by EMS. She reports that she has not taken her morning meds. Her initial blood pressure was 208/108. This improved during her stay. It was 165 systolic. She was treated with Zestril and Toprol-XL. These are her morning meds. Her exam was unremarkable. Her symptoms seem to be more musculoskeletal in nature as she is tender to palpation of her sternum and left costochondral area. CBC and complete metabolic panel are normal. BUN is slightly elevated. Troponin was normal. Chest x-ray did not show acute disease. They reported bibasilar atelectasis. She has no clinical findings or symptoms to suggest pneumonia. The patient was felt to be stable for discharge. Medication Reconcilliation Current Medication List: was personally reviewed by me Blood Pressure Screening Patient's blood pressure: Elevated blood pressure Blood pressure disposition: Referred to PCP Impression Primary Impression: Precordial chest pain Scribe Attestation The scribe's documentation has been prepared under my direction and personally reviewed by me in its entirety. I confirm that the note above accurately reflects all work, treatment, procedures, and medical decision making performed by me. Departure Information Dispostion Home / Self-Care Referrals RV. Kelley MD (PCP) Patient Instructions My [facility] Additional Instructions Follow-up with your doctor for further care and evaluation in 1-2 days. Return to the emergency department for worsening or new symptoms or any concerns. You have been examined and treated today on an emergency basis only. This is not a substitute for, or an effort to provide, complete comprehensive medical care. It is impossible to recognize and treat all injuries or illnesses in a single emergency department visit. It is therefore important that you follow up closely with your doctor. Call as soon as possible for an appointment.
[2017-02-15 15:42] VITALS: BP 178/88; PULSE 72; O2SAT 96
[2017-02-15] MEDS ORDERED: CHOL100010 PO (18:02)
[2017-02-15] MEDS ORDERED: TAMS0.4C38 PO (18:02)
[2017-02-15] MEDS ORDERED: DICL1GEL12 TOP (18:02)
== END 2017-02-15 15:51 | disposition home or self-care (01) ==
LOC: EDBD 14:07 → C.EDA 14:08
DX: R07.2 Precordial pain (principal); E11.9 Type 2 diabetes mellitus without complications; I25.2 Old myocardial infarction; Z87.442 Personal history of urinary calculi; Z87.440 Personal history of urinary (tract) infections; Z95.5 Presence of coronary angioplasty implant and graft; Z86.73 Personal history of transient ischemic attack (TIA), and cerebral infarction without residual deficits; I50.9 Heart failure, unspecified; M32.9 Systemic lupus erythematosus, unspecified; Z79.82 Long term (current) use of aspirin; Z79.899 Other long term (current) drug therapy

== ENCOUNTER → 2017-02-20 | Outpatient (CLI) | payer OTHER ==
[~2017-02-20] MED LIST changes: -ACET-749 PO; +CHOL100010 PO; +DICL1GEL12 TOP; +LDDP5 TOP; -NF656 TD; +NRN100 PO; +SENN-61 PO; -SENN1TAB77 PO; +TAMS0.4C38 PO; -VALA1TAB2 PO; +VALA1TAB31 PO
[2017-02-20 14:56] LABS: ALB/GLOB RATIO 0.9 (0.9-2); ALT/SGPT 26 U/L (12-78); BLOOD UREA NITROGEN 22 mg/dl (7-18); BUN/CREATININE RATIO 22.6 (10-20); CALCIUM 9.6 mg/dl (8.5-10.1); CARBON DIOXIDE 28 mmol/L (21-32); CHLORIDE 103 mmol/L (98-107); CREATININE 0.95 mg/dl (0.60-1.20); GLUCOSE 236 mg/dl (70-99); SODIUM 136 mmol/L (136-145)
[2017-02-20 14:58] LABS: ALKALINE PHOSPHATASE 68 U/L (45-117); AST/SGOT 19 U/L (15-37)
[2017-02-21 07:33] LABS: ESTIMATED AVERAGE GLUCOSE 206 mg/dl; HA1C FLAG Normal (Normal)
== END | disposition home or self-care (01) ==
LOC: C.LAB1850 12:28
PROVIDERS: ATTEND Internal Medicine
DX: E11.65 Type 2 diabetes mellitus with hyperglycemia (principal); E55.9 Vitamin D deficiency, unspecified

== ENCOUNTER → 2017-02-22 | Outpatient (CLI) | payer OTHER ==
[~2017-02-22] MED LIST changes: +ACET-749 PO; +NF656 TD; +SENN1TAB77 PO; +VALA1TAB2 PO
[2017-02-22 17:49] LABS: CHOLESTEROL/HDL RATIO 3.1
== END | disposition home or self-care (01) ==
LOC: C.LABPBG 13:21
PROVIDERS: ATTEND Internal Medicine Cardiovascular Disease
DX: E78.5 Hyperlipidemia, unspecified (principal)

== ENCOUNTER → 2017-03-28 | Outpatient (CLI) | payer OTHER ==
[~2017-03-28] MED LIST changes: -ACET-749 PO; -NF656 TD; -SENN1TAB77 PO; -VALA1TAB2 PO
[2017-03-28 18:02] LABS: BLOOD UREA NITROGEN 21 mg/dl (7-18); CALCIUM 9.4 mg/dl (8.5-10.1); CARBON DIOXIDE 24 mmol/L (21-32); CREATININE 1.03 mg/dl (0.60-1.20); GLUCOSE 190 mg/dl (70-99); POTASSIUM 4.2 mmol/L (3.5-5.1); SODIUM 138 mmol/L (136-145)
== END | disposition home or self-care (01) ==
LOC: C.LABPBG 11:34
PROVIDERS: ATTEND Nurse Practitioner Adult Health
DX: N20.0 Calculus of kidney (principal)

== ENCOUNTER → 2017-05-25 | Outpatient (CLI) | payer OTHER ==
[2017-05-25 10:23] LABS: HEMOGLOBIN A1C 9.6 % (4.5-5.6)
--- NOTE | 2017-05-25 10:27 | DIAGNOSTIC IMAGING REPORT ---
RIGHT UPPER EXTREMITY VENOUS DOPPLER HISTORY: Right wrist swelling. COMPARISON STUDY: None. FINDINGS: The right internal jugular vein is patent. There is normal flow within the right subclavian vein. There is normal flow and compressibility within the right axillary, basilic, brachial, radial, and ulnar veins. Within the right distal forearm there is a thrombosed branch of the cephalic vein. This is consistent with a superficial venous thrombosis. IMPRESSION: No DVT within the right upper extremity. Thrombosed branch of the cephalic vein within the distal right forearm consistent with a superficial venous thrombosis. Electronically signed by: Shady Le M.D. 05/25/2017 10:25 AM Dictated Date/Time: 05/25/2017 10:24 AM
[2017-05-25 11:13] LABS: ALBUMIN 3.6 gm/dl (3.4-5.0); ALT/SGPT 30 U/L (12-78); AST/SGOT 20 U/L (15-37); BLOOD UREA NITROGEN 20 mg/dl (7-18); CALCIUM 9.1 mg/dl (8.5-10.1); CARBON DIOXIDE 25 mmol/L (21-32); CREATININE 0.95 mg/dl (0.60-1.20); GLUCOSE 175 mg/dl (70-99); SODIUM 139 mmol/L (136-145)
[2017-05-25 11:24] LABS: ALKALINE PHOSPHATASE 54 U/L (45-117); TOTAL PROTEIN 7.3 gm/dl (6.4-8.2)
== END | disposition home or self-care (01) ==
LOC: C.ULTR 09:02
PROVIDERS: ATTEND Internal Medicine
DX: M25.439 Effusion, unspecified wrist (principal); E11.65 Type 2 diabetes mellitus with hyperglycemia; R68.89 Other general symptoms and signs; I82.611 Acute embolism and thrombosis of superficial veins of right upper extremity

== ENCOUNTER 2017-10-07 14:35 | Emergency (ER) | payer OTHER ==
[~2017-10-07] VITALS: Ht 152.4 cm; Wt 76.1 kg
[~2017-10-07 14:35] MED LIST changes: -CHOL100010 PO; -DICL1GEL12 TOP; -NRN100 PO; -ONDA4TAB10 SL
[2017-10-07 14:36] VITALS: TEMP 36.7; Ht 152.4 cm; Wt 76.1 kg
--- NOTE | 2017-10-07 15:23 | DIAGNOSTIC IMAGING REPORT ---
CHEST 2 VIEWS ROUTINE CLINICAL HISTORY: fall trauma COMPARISON STUDY: 02/15/2017 FINDINGS: The bones soft tissues and hemidiaphragms are normal. The cardiomediastinal silhouette is normal. The lungs are clear. The pulmonary vasculature is normal. IMPRESSION: Negative chest. The above report was generated using voice recognition software. It may contain grammatical, syntax or spelling errors. Electronically signed by: Jc Vines M.D. 10/07/2017 3:22 PM Dictated Date/Time: 10/07/2017 3:22 PM
--- NOTE | 2017-10-07 15:23 | DIAGNOSTIC IMAGING REPORT ---
PELVIS 1 OR 2 VIEW ROUTINE CLINICAL HISTORY: fall l hip pain and leg trauma. Pain. COMPARISON: None. DISCUSSION: The bones and joint spaces appear intact. There is no evidence of fracture, dislocation or bony disease. Mild degenerative change of the symphysis pubis as well as hips bilaterally. No acute bony abnormality. IMPRESSION: Mild degenerative change. No acute process. The above report was generated using voice recognition software. It may contain grammatical, syntax or spelling errors. Electronically signed by: Jc Vines M.D. 10/07/2017 3:21 PM Dictated Date/Time: 10/07/2017 3:20 PM
--- NOTE | 2017-10-07 15:24 | DIAGNOSTIC IMAGING REPORT ---
L FEMUR 2 VIEWS ROUTINE CLINICAL HISTORY: fall l hip pain pain COMPARISON: None. DISCUSSION: The bones and joint spaces appear intact. There is no evidence of fracture, dislocation or bony disease. Mild degenerative change of the hips as well as left knee. No acute bony abnormality. IMPRESSION: No acute process. The above report was generated using voice recognition software. It may contain grammatical, syntax or spelling errors. Electronically signed by: Jc Vines M.D. 10/07/2017 3:23 PM Dictated Date/Time: 10/07/2017 3:23 PM
--- NOTE | 2017-10-07 15:26 | DIAGNOSTIC IMAGING REPORT ---
L ANKLE MIN 3 VIEWS ROUTINE CLINICAL HISTORY: fall l ankle pain trauma. Pain. COMPARISON: None. DISCUSSION: Moderate generalized degenerative change. Transverse fracture medial malleolus felt to be old. Heel spur. Ossification Achilles tendon insertion. Mild soft tissue edema. IMPRESSION: Moderate degenerative change. Osteopenia. No acute bony abnormality. The above report was generated using voice recognition software. It may contain grammatical, syntax or spelling errors. Electronically signed by: Jc Vines M.D. 10/07/2017 3:24 PM Dictated Date/Time: 10/07/2017 3:23 PM
[2017-10-07] MEDS ORDERED: NRN100 PO (15:27)
--- NOTE | 2017-10-07 15:28 | DIAGNOSTIC IMAGING REPORT ---
L KNEE 3 VIEWS CLINICAL HISTORY: fall l knee pain trauma. Pain. COMPARISON: None. DISCUSSION: The bones and joint spaces appear intact. There is no evidence of fracture, dislocation or bony disease. Mild degenerative change. No significant joint effusion. IMPRESSION: Mild degenerative change. No acute process. The above report was generated using voice recognition software. It may contain grammatical, syntax or spelling errors. Electronically signed by: Jc Vines M.D. 10/07/2017 3:27 PM Dictated Date/Time: 10/07/2017 3:26 PM
[2017-10-07] MEDS ORDERED: TRIM100T PO (15:59)
[2017-10-07] MEDS ORDERED: METO50TA8 PO (15:59)
[2017-10-07] MEDS ORDERED: DULA0.5I PO (15:59)
[2017-10-07] MEDS ORDERED: LISI40TA3 PO (15:59)
[2017-10-07] MEDS ORDERED: TRMCR130WC TOP (15:59)
[2017-10-07] MEDS ORDERED: CRAN1CHW PO (15:59)
[2017-10-07] MEDS ORDERED: CYAN250T PO (15:59)
--- NOTE | 2017-10-07 16:07 | DIAGNOSTIC IMAGING REPORT ---
LUMBAR SPINE 2 OR 3 VIEWS CLINICAL HISTORY: lower back pain pain COMPARISON STUDY: No previous studies for comparison. FINDINGS: Vertebral body stature is normal. Mild degenerative disc changes throughout. Osteopenia. No evidence for subluxation. Moderate degenerative change of the hips bilaterally. IMPRESSION: Mild degenerative change. Osteopenia. No acute bony abnormality. The above report was generated using voice recognition software. It may contain grammatical, syntax or spelling errors. Electronically signed by: Jc Vines M.D. 10/07/2017 4:05 PM Dictated Date/Time: 10/07/2017 4:05 PM
[2017-10-07] MEDS ORDERED: OXYC-737 PO (16:17)
[2017-10-07] MEDS ORDERED: ONDA4TAB46 PO (16:17)
[2017-10-07 16:34] VITALS: BP 171/102; PULSE 75; O2SAT 96
[2017-10-07] MEDS ORDERED: DICL1GEL12 TOP (18:02)
[2017-10-07] MEDS ORDERED: CHOL100010 PO (18:02)
--- NOTE | 2017-10-07 19:31 | EMERGENCY ROOM VISIT NOTE ---
History Report prepared by Christina: Mariam Moreno Under the Supervision of: Dr. Mitchell Squires D.O. 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 She states she has normally has difficulty with her equilibrium, and she suddenly fell straight back onto her backside. She notes she has severe back pain in her lower lumbar region and she is having increasing difficulty walking as her back pain is worsening along with her severe left hip pain. She notes that breathing does not worsen her back pain. No tingling or numbness in her legs or arms. Movement exacerbates symptoms. Rest improves. Pt has some right hip pain but denies LOC, headache, change in vision, fevers, chest pain, shortness of breath, nausea, vomiting, diarrhea, pain with urination, and melena. 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 Negative changes in vision Review of Systems See HPI for pertinent positives & negatives. A total of 10 systems reviewed and were otherwise negative. Past Medical & Surgical Medical Problems: (1) CHF (congestive heart failure) (2) Diabetes (3) Heart attack (4) Kidney stones (5) Lupus (6) Stroke (7) UTI (urinary tract infection) (8) Vertigo Surgical Problems: (1) Stented coronary artery Family History Patient reports no known family medical history. Social History Smoking Status: Never Smoker Alcohol Use: none Drug Use: none Marital Status: Occupation Status: retired Current/Historical Medications Scheduled Albuterol Hfa (Ventolin Hfa), 1-2 PUFFS INH Q4-6H Aspirin (Aspirin 81), 81 MG PO DAILY Atorvastatin (Lipitor), 40 MG PO HS Cholecalciferol (Vitamin D), 1,000 UNITS PO DAILY Cranberry (Vaccinium Macrocarp (Cranberry Soft Chews), 5 TABS PO DAILY Cyanocobalamin (Vitamin B-12), 2 TAB PO DAILY Dulaglutide (Trulicity), 1.5 MG PO WK Gabapentin (Gabapentin), 100 MG PO HS Insulin Glargine (Toujeo Solostar), 44 UNITS SC QAM Lactobacillus (Acidophilus Probiotic), 200 MG PO DAILY Lisinopril (Lisinopril), 40 MG PO DAILY Metoprolol Succ (Toprol Xl) (Toprol-Xl), 50 MG PO DAILY Tamsulosin Hcl (Flomax), 0.4 MG PO HS Tolterodine Tartrate (Tolterodine Tartrate), 2 MG PO BID Trimethoprim (Proloprim), 100 MG PO HS Scheduled PRN Diclofenac Sodium (Topical) (Voltaren 1% Top Gel), 1 APPLN TOP DIRECTED PRN for Pain Meclizine Hcl (Meclizine Hcl), 25 MG PO Q12 PRN for Dizziness or Vertigo Ondansetron Hcl (Zofran), 4 MG PO TID PRN for Nausea Oxycodone Immediate Rel Tab (Roxicodone Ir), 1 TAB PO TID PRN for Pain Triamcinolone Acet (Aristocort 0.1%), 1 APPLN TOP BID PRN for Allergies Coded Allergies: Dapsone (Verified Allergy, Intermediate, RASH, 02/11/17) Sulfa Antibiotics (Verified Allergy, Mild, `, 02/11/17) Latex (Unverified Allergy, Unknown, UNKNOWN, 02/11/17) Ciprofloxacin (Verified Adverse Reaction, Intermediate, "i blew up like a balloon" per pt, 02/11/17) Adhesives (Verified Adverse Reaction, Unknown, unknwn, 02/11/17) Hydrocodone (Verified Adverse Reaction, Unknown, GI SYMPTOMS, 02/11/17) Oxycodone (Verified Adverse Reaction, Unknown, GI SYMPTOMS, 02/11/17) Red Dye (Verified Adverse Reaction, Unknown, unknwn, 02/11/17) Physical Exam Vital Signs Date Time Temp Pulse Resp B/P (MAP) Pulse Ox O2 Delivery O2 Flow Rate FiO2 10/07/17 16:34 75 18 171/102 96 Room Air 10/07/17 15:48 81 20 154/95 97 Room Air 10/07/17 14:36 36.7 91 17 160/90 96 Room Air Physical Exam GENERAL: alert, well appearing, well nourished, no distress, non-toxic HEAD: normal cephalic, atraumatic EYE EXAM: normal conjunctiva, PERRL and EOM's grossly intact OROPHARYNX: no exudate, no erythema, lips, buccal mucosa, and tongue normal and mucous membranes are moist EARS: TMs clear b/l NECK: supple, no nuchal rigidity, no adenopathy, non-tender CHEST: stable to compression anteriorly and posteriorly LUNGS: clear to auscultation. Normal chest wall mechanics HEART: no murmurs, S1 normal and S2 normal ABDOMEN: abdomen soft, non-tender, normo-active bowel sounds, no masses, no rebound or guarding. PELVIS: stable to compression anteriorly and posteriorly. Pain on palpation of left pelvis BACK: Back is symmetrical on inspection and there is no deformity, no midline tenderness, no CVA tenderness. Mild right lateral lower thoracic tenderness without bruising. UPPER EXTREMITIES: full active and passive range of motion of all joints without tenderness to palpation LOWER EXTREMITIES: With the exception of the left proximal femur which has tenderness to palpation, no bruising and skin is intact, full active and passive range of motion of all joints without tenderness to palpation with the exception of the left proximal femur which has tenderness to palpation, no bruising skin is intact. NEURO EXAM: Normal sensorium, cranial nerves II-XII grossly intact, normal speech, no gross weakness of arms, no gross weakness of legs. GCS: 15. Ambulates with a limp. Medical Decision & Procedures ER Provider Diagnostic Interpretation: Radiology results as stated below per my review and the radiologist's interpretation: PELVIS 1 OR 2 VIEW ROUTINE CLINICAL HISTORY: fall l hip pain and leg trauma. Pain. COMPARISON: None. DISCUSSION: The bones and joint spaces appear intact. There is no evidence of fracture, dislocation or bony disease. Mild degenerative change of the symphysis pubis as well as hips bilaterally. No acute bony abnormality. IMPRESSION: Mild degenerative change. No acute process. The above report was generated using voice recognition software. It may contain grammatical, syntax or spelling errors. Electronically signed by: Jc Vines M.D. 10/07/2017 3:21 PM L KNEE 3 VIEWS CLINICAL HISTORY: fall l knee pain trauma. Pain. COMPARISON: None. DISCUSSION: The bones and joint spaces appear intact. There is no evidence of fracture, dislocation or bony disease. Mild degenerative change. No significant joint effusion. IMPRESSION: Mild degenerative change. No acute process. The above report was generated using voice recognition software. It may contain grammatical, syntax or spelling errors. Electronically signed by: Jc Vines M.D. 10/07/2017 3:27 PM L FEMUR 2 VIEWS ROUTINE CLINICAL HISTORY: fall l hip pain pain COMPARISON: None. DISCUSSION: The bones and joint spaces appear intact. There is no evidence of fracture, dislocation or bony disease. Mild degenerative change of the hips as well as left knee. No acute bony abnormality. IMPRESSION: No acute process. The above report was generated using voice recognition software. It may contain grammatical, syntax or spelling errors. Electronically signed by: Jc Vines M.D. 10/07/2017 3:23 PM CHEST 2 VIEWS ROUTINE CLINICAL HISTORY: fall trauma COMPARISON STUDY: 02/15/2017 FINDINGS: The bones soft tissues and hemidiaphragms are normal. The cardiomediastinal silhouette is normal. The lungs are clear. The pulmonary vasculature is normal. IMPRESSION: Negative chest. The above report was generated using voice recognition software. It may contain grammatical, syntax or spelling errors. Electronically signed by: Jc Vines M.D. 10/07/2017 3:22 PM L ANKLE MIN 3 VIEWS ROUTINE CLINICAL HISTORY: fall l ankle pain trauma. Pain. COMPARISON: None. DISCUSSION: Moderate generalized degenerative change. Transverse fracture medial malleolus felt to be old. Heel spur. Ossification Achilles tendon insertion. Mild soft tissue edema. IMPRESSION: Moderate degenerative change. Osteopenia. No acute bony abnormality. The above report was generated using voice recognition software. It may contain grammatical, syntax or spelling errors. Electronically signed by: Jc Vines M.D. 10/07/2017 3:24 PM LUMBAR SPINE 2 OR 3 VIEWS CLINICAL HISTORY: lower back pain pain COMPARISON STUDY: No previous studies for comparison. FINDINGS: Vertebral body stature is normal. Mild degenerative disc changes throughout. Osteopenia. No evidence for subluxation. Moderate degenerative change of the hips bilaterally. IMPRESSION: Mild degenerative change. Osteopenia. No acute bony abnormality. The above report was generated using voice recognition software. It may contain grammatical, syntax or spelling errors. Electronically signed by: Jc Vines M.D. 10/07/2017 4:05 PM ED Course ED COURSE: Vital signs were reviewed and showed hypertensive situationally The patients medical record was reviewed The above diagnostic studies were performed and reviewed. ED treatments and interventions as stated above. 1440: The patient was evaluated in room A11. A complete history and physical examination was performed. 1542: I checked on the patient at this time. She is now having lower back pain. 1618: I checked the PDMP at this time. It was negative. Also I discussed with pt and family that she became sick with hydrocodone. They are willing to try oxycodone. 1619: Upon reevaluation, the patient is feeling better. I discussed my findings with the patient and she understands and agrees with the treatment plan. Based on the patients age, coexisting illnesses, exam and lab findings the decision to treat as an outpatient was made. The patient remained stable while under my care. The patient appeared well at the time of discharge. Medical Decision Differential diagnoses include major intracranial, cervical, spinal, thoracic, abdominal, pelvic and neurologic injury. Fracture, contusion, sprain, strain, laceration, abrasions included as well. Patient is a 77-year-old female who presents the ER for a fall where she lost her balance. She has severe left hip pain which is her main complaint along with lower back pain as well. She denies hitting her shoulder. X-rays of lumbar spine, ankle, chest, femur and knee and pelvis were unremarkable. Patient was not given any narcotics due to previous allergies but after long discussion with the patient she requested to take OxyIR. Her previous allergy was that she got sick to Hycodan. Patient was discharged with OxyIR after review of PDMP along with Jesus. She was updated bedside discharge as an outpatient. She was able to ambulate on her own. Discussed with Pt concerning signs and symptoms to watch out for. Pt was instructed to follow up with their PCP and discussed with the patient their option to return to the ED at anytime for persistent or worsening symptoms. The appropriate anticipatory guidance and out-patient management, including indications for return to the emergency department, were explained at length to the patient and understood. [place] Drug Monitoring Program Search Results: patient reviewed within database, no issues identified Head Trauma GCS Score: 15 Medication Reconcilliation Current Medication List: was personally reviewed by me Blood Pressure Screening Patient's blood pressure: Elevated blood pressure Blood pressure disposition: Elevated BP felt to be situational Impression Primary Impression: Contusion, hip Additional Impressions: Hip pain Fall Scribe Attestation The scribe's documentation has been prepared under my direction and personally reviewed by me in its entirety. I confirm that the note above accurately reflects all work, treatment, procedures, and medical decision making performed by me. Departure Information Dispostion Home / Self-Care Prescriptions Ondansetron Hcl (ZOFRAN) 4 Mg Tab 4 MG PO TID Y for Nausea for 10 Days, #30 TAB Prov: Mitchell Squires, DO 10/07/17 Oxycodone Immediate Rel Tab (ROXICODONE IR) 5 Mg Tab 1 TAB PO TID Y for Pain for 30 Days, #14 TAB Prov: Mitchell Squires, DO 10/07/17 Referrals RV. Kelley MD (PCP) Forms HOME CARE DOCUMENTATION FORM, IMPORTANT VISIT INFORMATION Patient Instructions My [facility] Additional Instructions Please follow up with your primary care doctor with in the next 24 hours. Any worsening of your symptoms, please return to the ED immediately. This includes any fevers greater than 100.4, worsening pain, chest pain, shortness breath, persistent nausea, vomiting, unable to eat or drink, or any other concerning signs or symptoms from your standpoint. Please take Tylenol or Motrin as needed for pain. You were given a prescription for OxyIR during this visit that will inhibit your ability to drive, operate machinery and work. Please do NOT drive, operate machinery or work within 12hrs of taking this medication. Problem Qualifiers Primary Impression: Contusion, hip Encounter type: initial encounter Laterality: left Qualified Codes: S70.02XA - Contusion of left hip, initial encounter Additional Impressions: Hip pain Laterality: left Qualified Codes: M25.552 - Pain in left hip Fall Encounter type: initial encounter Qualified Codes: W19.XXXA - Unspecified fall, initial encounter
== END 2017-10-07 16:27 | disposition home or self-care (01) ==
LOC: C.EDB 14:36 → C.EDA 16:27
DX: S70.02XA Contusion of left hip, initial encounter (principal); W19.XXXA Unspecified fall, initial encounter; I50.9 Heart failure, unspecified; E11.9 Type 2 diabetes mellitus without complications; I25.2 Old myocardial infarction; Z87.442 Personal history of urinary calculi; M32.9 Systemic lupus erythematosus, unspecified; Z86.73 Personal history of transient ischemic attack (TIA), and cerebral infarction without residual deficits; Z87.440 Personal history of urinary (tract) infections; Z95.5 Presence of coronary angioplasty implant and graft; Z79.82 Long term (current) use of aspirin; Z79.84 Long term (current) use of oral hypoglycemic drugs; Z79.4 Long term (current) use of insulin; Z79.899 Other long term (current) drug therapy; Z88.8 Allergy status to other drugs, medicaments and biological substances; Z88.2 Allergy status to sulfonamides; Z91.040 Latex allergy status; Z88.1 Allergy status to other antibiotic agents; Z91.048 Other nonmedicinal substance allergy status; Z88.5 Allergy status to narcotic agent

== ENCOUNTER 2019-10-05 21:49 | Inpatient (IN) ==
[2019-10-05] MEDS ORDERED: ONDANSETRON INJ 2 MG/ML 2 ML VIAL IV STA (22:18)
[2019-10-05] MEDS ORDERED: MoRPHine SULFATE 2 MG/ML CARP IV STA (22:18)
[2019-10-05] MEDS ORDERED: LORazepam 1 MG/2 ML VIAL IV STA (22:20)
[2019-10-05 22:49] LABS: Basophils # (auto) 0.04 K/uL (0-0.2); Basophils % (auto) 0.6 %; Eosinophils # (auto) 0.11 K/uL (0-0.5); Eosinophils % (auto) 1.5 %; Hematocrit (blood only) 38.2 % (37-47); Hemoglobin 12.8 g/dL (12.0-16.0); Immature Granulocytes # (auto) 0.01 K/uL (0.00-0.02); Immature Granulocytes % (auto) 0.1 %; Lymphocytes # (auto) 2.61 K/uL (1.2-3.4); Mean Corpuscular Hgb Conc 33.5 g/dL (32-36); Mean Corpuscular Volume 95.5 fL (80-100); Mean Platelet Volume 9.9 fL (7.4-10.4); Monocytes # (auto) 0.75 K/uL (0.11-0.59); Monocytes % (auto) 10.3 %; Neutrophils # (auto) 3.73 K/uL (1.4-6.5); Neutrophils % (auto) 51.5 %; Platelet Count 192 K/uL (130-400); RDW Coefficient of Variation 13.8 % (11.5-14.5); White Blood Count 7.25 K/uL (4.8-10.8)
[2019-10-05 23:03] LABS: Alanine Aminotransferase 28 U/L (12-78); Albumin Level 3.4 gm/dl (3.4-5.0); Aspartate Aminotransferase 21 U/L (15-37); Blood Urea Nitrogen 23 mg/dl (7-18); Calcium 9.2 mg/dl (8.5-10.1); Carbon Dioxide 26 mmol/L (21-32); Chloride 112 mmol/L (98-107); Est GFR (African American) 67.7; Est GFR (Non-African American) 58.5; Glucose 188 mg/dl (70-99); Sodium 148 mmol/L (136-145)
[2019-10-05 23:06] LABS: Albumin Globulin Ratio 0.9 (0.9-2); Alkaline Phosphatase 43 U/L (45-117); Bilirubin,Total 0.3 mg/dl (0.2-1); Globulin 3.8 gm/dl (2.5-4.0); Total Protein 7.2 gm/dl (6.4-8.2)
--- NOTE | 2019-10-06 02:02 | Emergency Department Note ---
General (ED) Blank Date of Service October 06, 2019 This patient returns to the ER for the third recent visit with back pain. She had a recent spinal L4 fracture. We did get an MRI today she did have to have Ativan prior to the MRI and when I examine her she is sleepy but arousable without complaints. Her MRI does show moderate to severe spinal stenosis. She will be admitted for pain management and likely placement in rehab as she has not been doing well and outpatient rehab. We talked his daughter at length and she agrees with this.
--- NOTE | 2019-10-06 02:24 | Emergency Department Note ---
History of Present Illness General Chief complaint: Pain (Generalized) Stated complaint: BACK PAIN, RADIATES THROUGH BODY Time Seen by Provider: 10/05/19 22:13 History of Present Illness Maximum Pain Intensity: 7 This is a 79-year-old female presenting to the emergency department for eval uation of ongoing back pain for the past few months. The patient has a history of fall in May, roughly 5 months ago, with resultant L5 compression fracture. The patient has slowly deteriorated over these months and has gotten much worse the past few weeks. She is having significant difficulties with activities of daily living. She is unable to stand for more than a few moments, and evidently has had additional falling episodes at home especially while in the shower. Her daughter and son have come from out of the area to try and help take care of her. The patient does have at home physical therapy aids, however she is not able to fully participate in her therapy as her pain is more severe than ever. She is able to use the bathroom, although mechanically it is very challenging for her to get up and off of the toilet. She is not having any fevers or chills. The patient was recently started on tramadol after having nausea and GI upset with other narcotics. The tramadol is not having significant improvement of her symptoms. The patient now presents to the ER this evening as her daughter was not able to get her out of a chair without significant help. Evidently it took 15 minutes for the family to get her into a vehicle to get her to the ER. The patient discomfort worsens with certain movement and does radiate bilaterally down her legs. Home Medications Home Medications Medication Instructions Recorded Confirmed Type mirabegron [Myrbetriq] 50 mg PO HS 08/21/18 10/05/19 History blood-glucose meter #1 ea 08/26/18 09/22/19 History cranberry 500 mg capsule 500 mg PO QAM 08/26/18 10/05/19 History cholecalciferol (vitamin D3) 25 2,000 units PO QAM cap 12/23/18 10/05/19 History mcg (1,000 unit) capsule coenzyme Q10 200 mg capsule 400 mg PO QAM cap 12/23/18 10/05/19 History lancets 33 gauge #100 ea 12/23/18 09/22/19 Rx aspirin [Aspir-81] 81 mg PO QAM 02/04/19 10/05/19 History pen needle, diabetic 32 gauge x #90 ea 02/11/19 09/22/19 Rx 5/32" Truetrack Test #200 ea NS 08/18/19 09/22/19 Rx albuterol sulfate [Proventil HFA] 1 inh INHALATION DAILY PRN 09/18/19 10/05/19 History diclofenac sodium [Voltaren] 2 g TOPICAL BID PRN 09/18/19 10/05/19 History insulin glargine U-300 conc 50 unit SUBCUT QAM 09/18/19 10/05/19 History [Toujeo SoloStar U-300 Insulin] meclizine 25 mg PO DAILY PRN 09/18/19 10/05/19 History ondansetron HCl 4 mg PO Q6H PRN 09/18/19 10/05/19 History atorvastatin 40 mg PO HS 09/19/19 10/05/19 History dulaglutide [Trulicity] 1.5 mg SUBCUT UD 09/19/19 10/05/19 History hydrochlorothiazide 25 mg PO QAM 09/19/19 10/05/19 History lisinopril 40 mg PO QAM 09/19/19 10/05/19 History metoprolol succinate [Toprol XL] 50 mg PO QAM 09/19/19 10/05/19 History tramadol 50 mg tablet 50 mg PO Q8H PRN #90 tab 09/22/19 10/05/19 Rx gabapentin 300 mg PO TID 10/05/19 10/05/19 History lidocaine [Lidoderm] 1 patch TOP DAILY 10/05/19 10/05/19 History Allergies Allergy/AdvReac Type Severity Reaction Status Date / Time dapsone Allergy Intermediate RASH Verified 10/05/19 22:53 Sulfa (Sulfonamide Allergy Mild Unknown Verified 10/05/19 22:53 Antibiotics) latex Allergy Unknown UNKNOWN Verified 10/05/19 22:53 Cipro AdvReac Intermediate "i blew up Verified 02/11/17 15:06 like a balloon" per pt ciprofloxacin AdvReac Intermediate "i blew up Verified 10/05/19 22:53 like a balloon" per pt hydrocodone AdvReac Intermediate GI SYMPTOMS Verified 10/05/19 22:53 oxycodone AdvReac Intermediate GI SYMPTOMS Verified 10/05/19 22:53 adhesive AdvReac Unknown unknwn Verified 10/05/19 22:53 metronidazole [From Flagyl] AdvReac Unknown CAN'T Verified 10/05/19 22:53 REMEMBER red dye AdvReac Unknown unknwn Verified 10/05/19 22:53 Past Med/Surg History Medical History Abdominal pain (Inactive) Arm DVT (deep venous thromboembolism), acute (Inactive) Arm skin lesion, right C. difficile colitis (Resolved) CHF (congestive heart failure) (Chronic) Contusion, hip (Acute) Dehydration (Acute) Diabetes Fall (Acute) Heart attack (Resolved) Hip pain (Acute) History of diverticulitis Hx of irritable bowel syndrome Hx of renal calculi Lupus (Chronic) Muscular pain (Acute) Stroke (Resolved) Swelling of right upper extremity (Acute) UTI (urinary tract infection) (Resolved) Vertigo (Chronic) Surgical History History of lithotripsy Hx of cholecystectomy S/P cardiac catheterization Stented coronary artery (Chronic) Social History Smoking Status: Never smoker Hx Alcohol Use: No Hx Substance Use: No Preferred Language: Barbadian Communication Ability: Effective Visual Impairment: No Limitations Hearing Ability: Normal marital status: / Current Living Situation: Alone current occupational status: retired Feels Safe at Home: Yes Childhood Exposure to Second-Hand Smoke: No Seatbelt Use: always Review of Systems A total of 10 systems reviewed and were otherwise negative Physical Exam Vital Signs Vital Signs - 24 hr 10/05/19 21:57 10/06/19 00:57 10/06/19 02:38 Temperature 36.9 C Temperature Source Oral Pulse Rate 74 Pulse Rate [Apical] 80 66 Respiratory Rate 18 18 18 Respiratory Effort / Characteristics Non-Labored Respiratory Depth Normal Normal Blood Pressure 186/93 H Blood Pressure [Left Arm] 155/83 H 159/82 H Blood Pressure Mean 124 Blood Pressure Mean [Left Arm] 107 107 Pulse Oximetry 97 98 98 Oxygen Delivery Method Room Air Room Air Room Air Oxygen Flow Rate Sepsis Recent Fever Within 48 Hours No Sepsis New/Unexplained Change in Mental Status No Sepsis Action Taken by Nursing No Action Required 10/06/19 03:05 10/06/19 03:56 Temperature Temperature Source Pulse Rate Pulse Rate [Apical] 76 74 Respiratory Rate 20 20 Respiratory Effort / Characteristics Respiratory Depth Blood Pressure Blood Pressure [Left Arm] 192/103 H 202/96 H Blood Pressure Mean Blood Pressure Mean [Left Arm] 132 131 Pulse Oximetry 93 99 Oxygen Delivery Method Room Air Nasal Cannula Oxygen Flow Rate 2 Sepsis Recent Fever Within 48 Hours Sepsis New/Unexplained Change in Mental Status Sepsis Action Taken by Nursing VITALS: Vitals are noted on the nurse's note and reviewed by myself. Vital signs stable. GENERAL: Elderly white female who is laying fairly comfortably in her ER bed. She does seem quite uncomfortable with movement in the bed including sitting up and rolling. HEAD: Normocephalic atraumatic. NECK: Supple without nuchal rigidity. No lymphadenopathy. No thyromegaly. Cervical spine is nontender. HEART: Regular rate and rhythm LUNGS: Clear to auscultation bilaterally without wheezes, rales or rhonchi. No retractions or accessory muscle use. BACK: Positive tenderness in the lower lumbar spine. Bilateral positive straight leg raise ABDOMEN: Positive normal bowel sounds x 4. Soft, nontender, without masses or organomegaly. No guarding or rebound tenderness. MUSCULOSKELETAL: No muscle atrophy, erythema, or edema noted. Full range of motion in all extremities. NEURO: Patient was alert and oriented to person place and time. CN II through XII grossly intact. No focal neurological deficits. Deep tendon reflexes 2+ throughout. Course Administered Medications Discontinued Medications Lorazepam (Ativan) 1 mg in 2 mls @ 2 mls/min IV NOW STA Stop: 10/05/19 22:21 Last Admin: 10/05/19 23:00 Dose: 2 mls/min Documented by: [id number] Morphine Sulfate (Morphine Sulfate) 2 mg IV NOW STA Stop: 10/05/19 22:19 Last Admin: 10/05/19 22:33 Dose: 2 mg Documented by: [id number] Morphine Sulfate (Morphine Sulfate) 2 mg IV NOW STA Stop: 10/06/19 03:42 Last Admin: 10/06/19 03:47 Dose: 2 mg Documented by: [id number] Ondansetron HCl (Zofran) 4 mg IV NOW STA Stop: 10/05/19 22:19 Last Admin: 10/05/19 22:32 Dose: 4 mg Documented by: [id number] Medical Decision Making Differential Diagnosis Differential diagnosis: Etiologies such as muscular strain, fracture, metastatic disease, disc herniation, sciatica, epidural abscess, vertebral osteomyelitis, discitis, spinal epidural hematoma, cord compression, cauda equina/conus medullaris sy ndrome, aortic disease, infection, shingles, renal colic UTI/pyelonephritis, gastrointestinal, acute exacerbation of chronic back pain, as well as others were entertained. Laboratory Data Result diagrams: 10/05/19 22:38 10/05/19 22:38 Lab Results 10/05/19 10/05/19 Range/Units 22:38 22:38 WBC 7.25 (4.8-10.8) K/uL RBC 4.00 L (4.2-5.4) M/uL Hgb 12.8 (12.0-16.0) g/dL Hct 38.2 (37-47) % MCV 95.5 (80-100) fL MCH 32.0 (25-34) pg MCHC 33.5 (32-36) g/dL RDW Std Deviation 48.0 H (36.4-46.3) fL RDW Coeff of Linda 13.8 (11.5-14.5) % Plt Count 192 (130-400) K/uL MPV 9.9 (7.4-10.4) fL Immature Gran % (Auto) 0.1 % Neut % (Auto) 51.5 % Lymph % (Auto) 36.0 % Mchenry % (Auto) 10.3 % Eos % (Auto) 1.5 % Baso % (Auto) 0.6 % Neut # (Auto) 3.73 (1.4-6.5) K/uL Lymph # (Auto) 2.61 (1.2-3.4) K/uL Mchenry # (Auto) 0.75 H (0.11-0.59) K/uL Eos # (Auto) 0.11 (0-0.5) K/uL Baso # (Auto) 0.04 (0-0.2) K/uL Immature Gran # (Auto) 0.01 (0.00-0.02) K/uL Sodium 148 H (136-145) mmol/L Potassium 4.0 (3.5-5.1) mmol/L Chloride 112 H (98-107) mmol/L Carbon Dioxide 26 (21-32) mmol/L Anion Gap 10.0 (3-11) BUN 23 H (7-18) mg/dl Creatinine 0.93 (0.6-1.2) mg/dl Est Cr Clr Drug Dosing Not Reportable Est GFR ( Amer) 67.7 Est GFR (Non-Af Amer) 58.5 BUN/Creatinine Ratio 25.0 H (10-20) Glucose 188 H (70-99) mg/dl Calcium 9.2 (8.5-10.1) mg/dl Total Bilirubin 0.3 (0.2-1) mg/dl AST 21 (15-37) U/L ALT 28 (12-78) U/L Alkaline Phosphatase 43 L (45-117) U/L Total Protein 7.2 (6.4-8.2) gm/dl Albumin 3.4 (3.4-5.0) gm/dl Globulin 3.8 (2.5-4.0) gm/dl Albumin/Globulin Ratio 0.9 (0.9-2) Imaging Data Radiologist's Impression: Preliminary Findings Only See Final Report For Complete Findings MRI L SPINE : Comparison: CT lumbar spine 09/18/19 Compression fracture of L5 and grade 1 anterolisthesis of L4 on L5 are similar to prior CT. Combination of listhesis, mild retropulsion and facet arthropathy/ligamentous hypertrophy cause moderate to severe canal stenosis at L4-L5. Edema within L5 fracture anterosuperiorly and there is minimal prevertebral edema. Otherwise, degenerative changes cause [id number] canal and foraminal stenoses. MDM Narrative Physical exam and history were performed. Nursing notes, EMR, and Medication List were personally reviewed. Patient appears to have low back pain worsening over the past few weeks after a fall that occurred a few months ago. The patient is with reproducible tenderness in the lower back. IV access was established and labs were obtained. The patient was given 2 mg IV morphine and 4 mg IV Zofran for comfort. I did have a lengthy discussion with both the patient and the patient's daughter regarding her steady decline at home. The patient has been in the ER now 3 times in the past 2 weeks for her back, and at this time I do feel that MRI is warranted. The patient's blood work is as above and was reviewed. She does not have a significantly elevated white blood cell count, gross anemia, bandemia, or significant electrolyte imbalance. Transaminases are not diagnostic. MRI was performed and reviewed by myself and radiology. It does redemonstrate the L5 fracture, which was known. The patient does have moderate to severe canal stenosis, which is likely contributing to many of her bilateral sciatic symptoms. The case was discussed with my attending physician, Dr. Barton, who also independently evaluated the patient. We do have concern for the patient's wellbeing as she is having difficulty with activities of daily living, and now is having additional falls at home. The patient is not able to do home physical therapy very well, and she likely will require more intensive inpatient physical therapy. I did ask case management to discuss this with the patient, and the patient and family seem to be amenable to this. At this point we are unable to establish appropriate placement. The patient will likely need a PT/OT evaluation, however this can be facilitated through the hospital. The case was discussed with the hospitalist team, who agreed to evaluate the patient here in the ER. Please see the hospitalist dictation for further patient care, plan, and disposition. The chart was completed utilizing [employer] Speech Voice Recognition Software. Grammatical errors, random word insertions, pronoun errors, and incomplete sentences are an occasional consequence of this system due to software limitations, ambient noise, and hardware issues. Any formal questions or concerns about the content, text, or information contained within the body of this dictation should be directly addressed to the provider for clarification. . Impression & Plan Closed L5 vertebral fracture, Acute low back pain with bilateral sciatica, Ambulatory dysfunction, At high risk for falls Discharge Plan Visit Data Chief Complaint: Pain (Generalized) Stated Complaint: BACK PAIN, RADIATES THROUGH BODY ED Provider: Luiz Barton ED Midlevel Provider: Frandy Jansen Discharge Problem: Closed L5 vertebral fracture, Acute low back pain with bilateral sciatica, Ambulatory dysfunction, At high risk for falls Forms Stand Alone Forms: My [facility] [employer] Prescriptions Prescriptions: No Action (DME) pen needle, diabetic [BD Ultra-Fine Cris Pen Needle] 32 gauge x 5/32" needle See Rx Instructions .ROUTE .MEDSUPPLY Qty: 90 RF: 3 (DME) Truetrack Test Strip See Dose Instructions .ROUTE .MEDSUPPLY Qty: 200 RF: 3 cranberry 500 mg capsule 500 mg PO QAM RF: 0 (DME) blood-glucose meter [[employer] Smart System] kit See Dose Instructions .ROUTE .MEDSUPPLY Qty: 1 RF: 0 coenzyme Q10 200 mg capsule 400 mg PO QAM RF: 0 (DME) lancets [BD Ultra Fine Lancets] 33 gauge misc See Dose Instructions .ROUTE .MEDSUPPLY Qty: 100 RF: 0 tramadol [Ultram] 50 mg tablet 50 mg PO Q8H PRN (Reason: pain) Qty: 90 RF: 1 aspirin [Aspir-81] 81 mg Tablet,Delayed Release (Dr/Ec) 81 mg PO QAM RF: 0 Trulicity 1.5 mg/0.5 mL pen injector 1.5 mg SUBCUT UD RF: 0 atorvastatin 40 mg tablet 40 mg PO HS RF: 0 metoprolol succinate [Toprol XL] 50 mg tablet extended release 24 hr 50 mg PO QAM RF: 0 hydrochlorothiazide 25 mg tablet 25 mg PO QAM RF: 0 lisinopril 40 mg tablet 40 mg PO QAM RF: 0 gabapentin 300 mg Capsule 300 mg PO TID RF: 0 lidocaine [Lidoderm] 5 % adhesive patch,medicated 1 patch TOP DAILY RF: 0 Myrbetriq 50 mg tablet extended release 24 hr 50 mg PO HS RF: 0 cholecalciferol (vitamin D3) [Vitamin D3] 1,000 unit capsule 2,000 units PO QAM RF: 0 ondansetron HCl 4 mg Tablet 4 mg PO Q6H PRN (Reason: Nausea) RF: 0 meclizine 25 mg Tablet 25 mg PO DAILY PRN (Reason: dizzyness) RF: 0 albuterol sulfate [Proventil HFA] 90 mcg/actuation Hfa Aerosol Inhaler 1 inh INHALATION DAILY PRN (Reason: Shortness Of Breath Or Wheezing) RF: 0 diclofenac sodium [Voltaren] 1 % Gel 2 g TOPICAL BID PRN (Reason: Pain) RF: 0 Toujeo SoloStar U-300 Insulin 300 unit/mL (1.5 mL) insulin pen 50 unit SUBCUT QAM RF: 0 Referrals Referrals: Markus Castillo MD [Primary Care Provider] - Discharge Problem: Closed L5 vertebral fracture Qualifiers: Encounter type: sequela Fracture morphology: wedge compression Qualified Code(s): S32.050S - Wedge compression fracture of fifth lumbar vertebra, sequela Acute low back pain with bilateral sciatica Qualifiers: Back pain laterality: midline Qualified Code(s): M54.42 - Lumbago with sciatica, left side
--- NOTE | 2019-10-06 02:41 | History & Physical Report ---
Date of Service October 06, 2019 Assessment & Plan (1) Lumbar back pain: 79-year-old female with past medical history type 2 diabetes, hypertension, hyperlipidemia, coronary artery disease, CHF, irritable syndrome presents with concerns of ongoing low back pain admitted for likely placement to rehab. Lumbar back pain Lumbar spine CT: Multilevel spondylytic changes. Superior endplate L5 compression fracture demonstrating 50% loss in height and 5 mm of retropulsion. There is secondary severe spinal stenosis. MRI lumbar spine ([facility]): Compression fracture L5 and grade 1 anterolisthesis of L4 on L5 are similar to prior CT. Combination of listhesis, mild retropulsion and facet arthropathy/ligamentous hypertrophy causing moderate to severe canal stenosis at L4-L5. Edema within L5 fracture anterior superiorly and there is minimal prevertebral edema. Otherwise degenerative changes cause mild to moderate canal and foraminal stenosis Placed on fall precautions Pain management with MARIE Tylenol, lidocaine patch, heat pad. PRN IV Toradol for moderate pain, IV morphine for severe breakthrough pain. Holding home tramadol PT OT eval's ordered for likely rehab placement Appreciate CM assistance with placement. Patient and daughter state that they would prefer to go to [facility] over [facility]. Will order COVID testing at this time and anticipation for placement patient does not wish to proceed with surgical intervention. Defer orthopedic consult at present HTN/HLD/CAD Continue ASA 81, atorvastatin 40, coenzyme Q10, HCTZ 25, lisinopril 40, Toprol- XL 50 DM 2 with neuropathy Holding home Trulicity, insulin regimen. Will place on SSI Continue gabapentin 300 TID A1c 8.3 in July 2019 FEN/GI: Heart healthy, DM 2 diet DVT prophylaxis: Lovenox SQ Full code Dispo: Med Surg. PT OT evals pending. Appreciate CM assistance with placement History of Present Illness Chief Complaint: Back pain Primary Care Provider: Markus Scanlon MD 79-year-old female with past medical history type 2 diabetes, hypertension, hyperlipidemia, coronary artery disease, CHF, irritable syndrome presents with concerns of ongoing low back pain. Patient has been seen in our ER 3 times over the few weeks or so for same issue. Upon my evaluation patient had received Ativan and is in deep sleep and not easily arousable, so history is unobtainable by patient interview. History obtained from past medical records. On May 15, 2019 patient was lifting a heavy box and dropped it resulting in a trip. Due to COVID pandemic she did not have x-rays until July 11, 2019. This showed a compression fracture with 50% loss of vertebral height and a 5 mm of retropulsion. Patient had been seeing sports medicine Dr. Lainez and has been receiving physical therapy, which has not helped. Patient has been taking tramadol, Tylenol, and Aleve daily without improvement of symptoms. Patient normally lives at home independently prior to May requiring no assistance in ADLs. She normally ambulates with walker. Since then she has received family support along with home PT. patient has had numerous falls at home in recent memory. Patient with no previous back surgeries and no hardware in place. Associated numbness and tingling. Patient with no other red flag symptoms of bowel or bladder incontinence, or saddle anesthesia. ER doctor discussed this case with daughter who agreed for admission for likely placement at rehab. Imaging to date: August 11, 2019 hip pelvis x-ray: No fractures within the pelvis or hips. Mild osteoarthritis. August 11, 2019 lumbar spine x-ray: Moderate L5 compression fracture which is age indeterminate but new since CT of August 21, 2018. 50% loss of vertebral body height with approximately 5 mm of retropulsion. Moderate multilevel facet arthrosis and mild multilevel degenerative disc disease. September 18, [address]: Multilevel spondylytic changes. Superior endplate L5 compression fracture demonstrating 50% loss in height and 5 mm of retropulsion. There is secondary severe spinal stenosis. October 06, 2019 MRI lumbar spine ([facility]): Compression fracture L5 and grade 1 anterolisthesis of L4 on L5 are similar to prior CT. combination of listhesis, mild retropulsion and facet arthropathy/ligamentous hypertrophy causing moderate to severe canal stenosis at L4-L5. Edema within L5 fracture anterior superiorly and there is minimal prevertebral edema. Otherwise degenerative changes cause mild to moderate canal and foraminal stenosis. ER course: IV Ativan 1 mg, IV morphine 2 mg, IV Zofran 4 mg Allergies Allergy/AdvReac Type Severity Reaction Status Date / Time dapsone Allergy Intermediate RASH Verified 10/05/19 22:53 Sulfa (Sulfonamide Allergy Mild Unknown Verified 10/05/19 22:53 Antibiotics) latex Allergy Unknown UNKNOWN Verified 10/05/19 22:53 Cipro AdvReac Intermediate "i blew up Verified 02/11/17 15:06 like a balloon" per pt ciprofloxacin AdvReac Intermediate "i blew up Verified 10/05/19 22:53 like a balloon" per pt hydrocodone AdvReac Intermediate GI SYMPTOMS Verified 10/05/19 22:53 oxycodone AdvReac Intermediate GI SYMPTOMS Verified 10/05/19 22:53 adhesive AdvReac Unknown unknwn Verified 10/05/19 22:53 metronidazole [From Flagyl] AdvReac Unknown CAN'T Verified 10/05/19 22:53 REMEMBER red dye AdvReac Unknown unknwn Verified 10/05/19 22:53 Home Medications Home Medications Medication Instructions Recorded Confirmed Type mirabegron [Myrbetriq] 50 mg PO HS 08/21/18 10/05/19 History blood-glucose meter #1 ea 08/26/18 09/22/19 History cranberry 500 mg capsule 500 mg PO QAM 08/26/18 10/05/19 History cholecalciferol (vitamin D3) 25 2,000 units PO QAM cap 12/23/18 10/05/19 History mcg (1,000 unit) capsule coenzyme Q10 200 mg capsule 400 mg PO QAM cap 12/23/18 10/05/19 History lancets 33 gauge #100 ea 12/23/18 09/22/19 Rx aspirin [Aspir-81] 81 mg PO QAM 02/04/19 10/05/19 History pen needle, diabetic 32 gauge x #90 ea 02/11/19 09/22/19 Rx 5/32" Truetrack Test #200 ea NS 08/18/19 09/22/19 Rx albuterol sulfate [Proventil HFA] 1 inh INHALATION DAILY PRN 09/18/19 10/05/19 History diclofenac sodium [Voltaren] 2 g TOPICAL BID PRN 09/18/19 10/05/19 History insulin glargine U-300 conc 50 unit SUBCUT QAM 09/18/19 10/05/19 History [[place] SoloStar U-300 Insulin] meclizine 25 mg PO DAILY PRN 09/18/19 10/05/19 History ondansetron HCl 4 mg PO Q6H PRN 09/18/19 10/05/19 History atorvastatin 40 mg PO HS 09/19/19 10/05/19 History dulaglutide [Trulicity] 1.5 mg SUBCUT UD 09/19/19 10/05/19 History hydrochlorothiazide 25 mg PO QAM 09/19/19 10/05/19 History lisinopril 40 mg PO QAM 09/19/19 10/05/19 History metoprolol succinate [Toprol XL] 50 mg PO QAM 09/19/19 10/05/19 History tramadol 50 mg tablet 50 mg PO Q8H PRN #90 tab 09/22/19 10/05/19 Rx gabapentin 300 mg PO TID 10/05/19 10/05/19 History lidocaine [Lidoderm] 1 patch TOP DAILY 10/05/19 10/05/19 History Past Med/Surg History Medical History Abdominal pain (Inactive) Arm DVT (deep venous thromboembolism), acute (Inactive) Arm skin lesion, right C. difficile colitis (Resolved) CHF (congestive heart failure) (Chronic) Contusion, hip (Acute) Dehydration (Acute) Diabetes Fall (Acute) Heart attack (Resolved) Hip pain (Acute) History of diverticulitis Hx of irritable bowel syndrome Hx of renal calculi Lupus (Chronic) Muscular pain (Acute) Stroke (Resolved) Swelling of right upper extremity (Acute) UTI (urinary tract infection) (Resolved) Vertigo (Chronic) Surgical History History of lithotripsy Hx of cholecystectomy S/P cardiac catheterization Stented coronary artery (Chronic) Social History Smoking Status: Never smoker Hx Alcohol Use: No Hx Substance Use: No Preferred Language: Maltese Communication Ability: Effective Visual Impairment: No Limitations Hearing Ability: Normal marital status: / Current Living Situation: Alone current occupational status: retired Feels Safe at Home: Yes Childhood Exposure to Second-Hand Smoke: No Seatbelt Use: always Review of Systems Review of Systems: All systems reviewed & are unremarkable except as noted in HPI & below Physical Exam Constitutional: + acute distress (Patient quite uncomfortable in bed with certain movements) Eyes: PERRL, conjunctivae normal, anicteric sclerae ENMT: external ear and nose normal, oropharynx normal Respiratory: normal respiratory effort; no respiratory distress Cardiovascular: RRR, no murmur, no edema Musculoskeletal: Gait: + abnormal gait Neurologic: CN's II-XI intact bilaterally; no focal motor deficits Positive straight leg raise TTP over lower lumbar region. Paraspinal hypertonicity L4, L5, S1 dermatomal sensation intact Results & Data Results & Data ([facility]) Vital Signs (Past 12 Hours) Vital Signs Temp Pulse Pulse Resp BP BP Pulse Ox 10/06/19 00:57 80 18 155/83 H 98 10/05/19 21:57 36.9 C 74 18 186/93 H 97 Laboratory Results Laboratory Results - last 24 hr 10/05/19 10/05/19 22:38 22:38 WBC 7.25 RBC 4.00 L Hgb 12.8 Hct 38.2 MCV 95.5 MCH 32.0 MCHC 33.5 RDW Std Deviation 48.0 H RDW Coeff of Linda 13.8 Plt Count 192 MPV 9.9 Immature Gran % (Auto) 0.1 Neut % (Auto) 51.5 Lymph % (Auto) 36.0 Smyth % (Auto) 10.3 Eos % (Auto) 1.5 Baso % (Auto) 0.6 Neut # (Auto) 3.73 Lymph # (Auto) 2.61 Smyth # (Auto) 0.75 H Eos # (Auto) 0.11 Baso # (Auto) 0.04 Immature Gran # (Auto) 0.01 Sodium 148 H Potassium 4.0 Chloride 112 H Carbon Dioxide 26 Anion Gap 10.0 BUN 23 H Creatinine 0.93 Est Cr Clr Drug Dosing Not Reportable Est GFR ( Amer) 67.7 Est GFR (Non-Af Amer) 58.5 BUN/Creatinine Ratio 25.0 H Glucose 188 H Calcium 9.2 Total Bilirubin 0.3 AST 21 ALT 28 Alkaline Phosphatase 43 L Total Protein 7.2 Albumin 3.4 Globulin 3.8 Albumin/Globulin Ratio 0.9 Code Status & VTE Plan Code Status Full Supervising Physician Co-Signing Physician Notes Patient seen and examined, chart reviewed, case discussed with Dr. Rao and I agree with his assessment and plan as documented above. Resident Activity Tracking Resident Involvement: Resident Care Provided Care Provided: Adult [facility] Medicine
[2019-10-06] MEDS ORDERED: MoRPHine SULFATE 2 MG/ML CARP IV STA (03:41)
--- NOTE | 2019-10-06 04:48 | Billing Data ---
Date of Service October 06, 2019 Coding Level of Care Code 72591 Initial Inpt Care Lvl 3
[2019-10-06] MEDS ORDERED: GLUCOSE 40% GEL 15 GM TUBE PO PRN (06:13)
[2019-10-06] MEDS ORDERED: DICLOFENAC SOD 1% GEL 100 GM TUBE EXT PRN (06:13)
[2019-10-06] MEDS ORDERED: MoRPHine SULFATE 2 MG/ML CARP IV PRN (06:13)
[2019-10-06] MEDS ORDERED: ACETAMINOPHEN 325 MG TAB PO PRN (06:13)
[2019-10-06] MEDS ORDERED: GLUCAGON FOR INJ 1 MG VIAL SQ PRN (06:13)
[2019-10-06] MEDS ORDERED: CARBOHYDRATES FOR HYPOGLYCEMIA PO PRN (06:13)
[2019-10-06] MEDS ORDERED: ALUMINUM/MAGNESIUM SUSP 30 ML UDC PO PRN (06:13)
[2019-10-06] MEDS ORDERED: DEXTROSE 50% 50 ML SYRINGE IV PRN (06:13)
[2019-10-06] MEDS ORDERED: ALBUTEROL HFA 8 GM INHALER INH PRN (06:13)
[2019-10-06] MEDS ORDERED: HydrALAZINE HCL 20 MG/ML VIAL IV PRN (06:13)
[2019-10-06] MEDS ORDERED: ONDANSETRON INJ 2 MG/ML 2 ML VIAL IV PRN (06:13)
[2019-10-06] MEDS ORDERED: GLUCOSE 10 TABS/TUBE PO PRN (06:13)
[2019-10-06] MEDS ORDERED: MECLIZINE HCL 25 MG TAB PO PRN (06:29)
[2019-10-06] MEDS: KETOROLAC TROMETHAMINE 15 MG/ML VIAL IV PRN ×2 (07:20→23:40)
--- NOTE | 2019-10-06 07:58 | Magnetic Resonance Report ---
MR lumbar spine wo con CLINICAL HISTORY: L5 fracture. Bilateral leg pain. TECHNIQUE: Sagittal and axial T1, T2 and STIR images were obtained. COMPARISON STUDY: CT scan dated 09/18/2019 OBSERVATIONS: There is a subacute superior endplate L5 fracture with minimal disc and superior endplate edema. The fracture demonstrates 50% loss of height, that appears similar to the prior September 18, 2019 CT scan. Th ere are no areas of marrow replacement to indicate neoplasm. L1-2: No disc protrusions or extrusions. No evidence of spinal canal or neural foraminal compromise. L2-3: There is a small broad-based central disc protrusion with moderate spinal stenosis. There is fa cet joint arthropathy. There is minimal bilateral foraminal narrowing L3-4: There is a mild circumferential disc bulge. There is facet joint and ligamentous hypertrophy. T here is mild spinal stenosis. There is no significant foraminal narrowing L4-5: There is a grade 1 spondylolisthesis of L4 and L5. In addition there is minimal retropulsion of the superior margin of the fracture. There is a subacute superior endplate L5 compression fracture. There is severe spinal stenosis. There is mild bilateral foraminal narrowing. L5-S1: No disc protrusions or extrusions. No evidence of spinal canal or neural foraminal compromise. The conus medullaris and cauda equina appear normal. IMPRESSION: 1. Subacute superior endplate L5 compression fracture demonstrating 50% loss in height. No significan t change from the preceding study. 2. Multifactorial severe spinal stenosis at the L4-5 level. 3. Multilevel spondylytic changes. Moderate spinal stenosis at the L1-2 level, and L3-[address] spinal stenosis the L2-3 level. ACT 112: Negative or not required by law. Electronically signed by: Tom Genao M.D. 10/06/2019 7:57 AM
[2019-10-06] MEDS: ACETAMINOPHEN 325 MG TAB PO SCH ×3 (08:13→21:25)
[2019-10-06] MEDS: ENOXAPARIN INJ 40 MG/0.4 ML SYR SQ SCH (08:13)
[2019-10-06] MEDS: METOPROLOL SUCC 50MG EXT REL TAB PO SCH (08:13)
[2019-10-06] MEDS: lisinopriL 40 MG TAB PO SCH (08:14)
[2019-10-06] MEDS: GABAPENTIN 300 MG CAP PO SCH ×3 (08:14→21:26)
[2019-10-06] MEDS: CHOLECALCIFEROL 1,000 UNITS 25 MCG TAB PO SCH (08:14)
[2019-10-06] MEDS: hydroCHLOROthiazide 25 MG TAB PO SCH (08:14)
[2019-10-06] MEDS: LIDOCAINE 5% 1 PATCH TD SCH (08:14)
[2019-10-06] MEDS: ASPIRIN 81 MG ECTAB PO SCH (08:14)
[2019-10-06] MEDS ORDERED: NON-FORMULARY MEDICATION (Cranberry 500 MG) PO SCH (09:00)
[2019-10-06] MEDS ORDERED: NON-FORMULARY MEDICATION (Coenzyme Q10 400 MG) PO SCH (09:00)
[2019-10-06] MEDS: INSULIN ASPART 100 UNITS/ML 3 ML PEN SC SCH ×4 (09:37→21:24)
[2019-10-06] MEDS: INSULIN GLARGINE SOLOSTAR 100 UNITS/ML 3 ML PEN SC SCH ×2 (09:38→21:23)
--- NOTE | 2019-10-06 11:38 | Orthopedic Consultation ---
Date of Consultation October 06, 2019 Assessment & Plan (1) Neurogenic claudication due to lumbar spinal stenosis: At this time the patient has evidence of severe spinal stenosis L4-L5 with a superior endplate fracture at L5. A lengthy discussion with the patient this morning regarding her imaging and clinical presentation. At this point she could consider observation versus injections or ultimately surgical intervention. The severity of stenosis and presentation does render surgery a r easonable option. It would require a lumbar decompression and fusion at L4 and L5 with possible kyphoplasty of L5. Risk benefits pros cons and alternatives were outlined in detail. Risk include but not limited to anesthesia blindness stroke paralysis nerve damage blood loss current transfusion infection requiring reoperation. At this time patient is going to consider her options. I suggest we evaluate her medically for potential surgery and she is quite limited. I will continue to follow her throughout her stay. Present on Admission?: Yes History of Present Illness Reason for Consultation: Back and bilateral leg pain Attending Physician: Alex Kelly MD History of Present Illness This is a very pleasant 79-year-old female presents the hospital over the past several weeks with worsening back and bilateral leg pain. She does have a known superior endplate fracture of L5 but a recent MRI demonstrates concomitant severe spinal stenosis. She describes pain rating at lumbosacral spine in the bilateral buttocks down the posterior thigh into the foot. The left is worse than the right. It markedly limits her ability to ambulate and sit. She denies any loss of bowel bladder control. Allergies Allergy/AdvReac Type Severity Reaction Status Date / Time dapsone Allergy Intermediate RASH Verified 10/05/19 22:53 Sulfa (Sulfonamide Allergy Mild Unknown Verified 10/05/19 22:53 Antibiotics) latex Allergy Unknown UNKNOWN Verified 10/05/19 22:53 Cipro AdvReac Intermediate "i blew up Verified 02/11/17 15:06 like a balloon" per pt ciprofloxacin AdvReac Intermediate "i blew up Verified 10/05/19 22:53 like a balloon" per pt hydrocodone AdvReac Intermediate GI SYMPTOMS Verified 10/05/19 22:53 oxycodone AdvReac Intermediate GI SYMPTOMS Verified 10/05/19 22:53 adhesive AdvReac Unknown unknwn Verified 10/05/19 22:53 metronidazole [From Flagyl] AdvReac Unknown CAN'T Verified 10/05/19 22:53 REMEMBER red dye AdvReac Unknown unknwn Verified 10/05/19 22:53 Home Medications Home Medications Medication Instructions Recorded Confirmed Type mirabegron [Myrbetriq] 50 mg PO HS 08/21/18 10/05/19 History blood-glucose meter #1 ea 08/26/18 09/22/19 History cranberry 500 mg capsule 500 mg PO QAM 08/26/18 10/05/19 History cholecalciferol (vitamin D3) 25 2,000 units PO QAM cap 12/23/18 10/05/19 History mcg (1,000 unit) capsule coenzyme Q10 200 mg capsule 400 mg PO QAM cap 12/23/18 10/05/19 History lancets 33 gauge #100 ea 12/23/18 09/22/19 Rx aspirin [Aspir-81] 81 mg PO QAM 02/04/19 10/05/19 History pen needle, diabetic 32 gauge x #90 ea 02/11/19 09/22/19 Rx 5/32" Truetrack Test #200 ea NS 08/18/19 09/22/19 Rx albuterol sulfate [Proventil HFA] 1 inh INHALATION DAILY PRN 09/18/19 10/05/19 History diclofenac sodium [Voltaren] 2 g TOPICAL BID PRN 09/18/19 10/05/19 History insulin glargine U-300 conc 50 unit SUBCUT QAM 09/18/19 10/05/19 History [[place] SoloStar U-300 Insulin] meclizine 25 mg PO DAILY PRN 09/18/19 10/05/19 History ondansetron HCl 4 mg PO Q6H PRN 09/18/19 10/05/19 History atorvastatin 40 mg PO HS 09/19/19 10/05/19 History dulaglutide [Trulicity] 1.5 mg SUBCUT UD 09/19/19 10/05/19 History hydrochlorothiazide 25 mg PO QAM 09/19/19 10/05/19 History lisinopril 40 mg PO QAM 09/19/19 10/05/19 History metoprolol succinate [Toprol XL] 50 mg PO QAM 09/19/19 10/05/19 History tramadol 50 mg tablet 50 mg PO Q8H PRN #90 tab 09/22/19 10/05/19 Rx gabapentin 300 mg PO TID 10/05/19 10/05/19 History lidocaine [Lidoderm] 1 patch TOP DAILY 10/05/19 10/05/19 History Patient History Medical History Abdominal pain (Inactive) Arm DVT (deep venous thromboembolism), acute (Inactive) Arm skin lesion, right C. difficile colitis (Resolved) CHF (congestive heart failure) (Chronic) Contusion, hip (Acute) Dehydration (Acute) Diabetes Fall (Acute) Heart attack (Resolved) Hip pain (Acute) History of diverticulitis Hx of irritable bowel syndrome Hx of renal calculi Lupus (Chronic) Muscular pain (Acute) Stroke (Resolved) Swelling of right upper extremity (Acute) UTI (urinary tract infection) (Resolved) Vertigo (Chronic) Surgical History History of lithotripsy Hx of cholecystectomy S/P cardiac catheterization Stented coronary artery (Chronic) Social History Smoking Status: Never smoker Hx Alcohol Use: No Hx Substance Use: No Preferred Language: Tajik Communication Ability: Effective Visual Impairment: No Limitations Hearing Ability: Normal marital status: / Current Living Situation: Alone current occupational status: retired Feels Safe at Home: Yes Childhood Exposure to Second-Hand Smoke: No Seatbelt Use: always Physical Exam Physical Exam: On exam she is in the chair at the bedside. She has sensation to cold and light touch greater on the right than the left. There is no gross tension signs. She has reasonable +5-5 strength bilateral plantar flexion dorsiflexion extensor hallucis longus as well as quadriceps. Negative logroll. I did not have her stand at this time secondary to pain. Results & Data ([facility]) Vital Signs (Past 12 Hours) Vital Signs Temp Pulse Pulse Resp BP Pulse Ox 10/06/19 07:00 36.6 C 62 18 201/73 H 96 10/06/19 05:28 170/74 H 10/06/19 04:38 65 20 150/84 H 99 10/06/19 03:56 74 20 202/96 H 99 10/06/19 03:05 76 20 192/103 H 93 10/06/19 02:38 66 18 159/82 H 98 10/06/19 00:57 80 18 155/83 H 98
--- NOTE | 2019-10-06 14:06 | Hospitalist Progress Note ---
Date of Service October 06, 2019 Assessment & Plan (1) Lumbar back pain: Lumbar spine CT: Multilevel spondylytic changes. Superior endplate L5 compression fracture demonstrating 50% loss in height and 5 mm of retropulsion. There is secondary severe spinal stenosis. MRI lumbar spine ([facility]): Compression fracture L5 and grade 1 anterolisthesis of L4 on L5 are similar to prior CT. Combination of listhesis, mild retropulsion and facet arthropathy/ligamentous hypertrophy causing moderate to severe canal stenosis at L4-L5. Edema within L5 fracture anterior superiorly and there is minimal prevertebral edema. Otherwise degenerative changes cause mild to moderate canal and foraminal stenosis Pain management with MARIE Tylenol, lidocaine patch, heat pad. PRN IV Toradol for moderate pain, IV morphine for severe breakthrough pain. Holding home tramadol PT OT jaqueline's ordered for likely rehab placement Appreciate CM assistance with placement. Patient and daughter state that they would prefer to go to [facility] over [facility]. COVID pending Consulted ortho spine - patient is considering surgery but is very hesitant. Will discuss with her family. Patient was a little unclear about her activity tolerance as her activity has been much more limited since May and she feels very weak. She can get up a flight of stairs without getting short of breath but has to make stops for pain. RCRI is is 15% risk of , [place] or cardiac arrest in the next 30 days due to history of CAD, CHF, CVA and DM. Patient is reporting CHF but I do not see any echo on file. I will order an echocardiogram and also consult cardiology to help risk stratify if patient does chose to go forward with surgery. She does not appear to be in any CHF exacerbation at this time. She is not having any ischemic symptoms such as chest pain. She is also mildly hypernatremic on her lab work. Will recheck this in the morning (2) Hypertension: HTN/HLD/CAD. 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 Continue ASA 81, atorvastatin 40, coenzyme Q10, HCTZ 25, lisinopril 40, Toprol- XL 50 Blood pressures hypertensive at 201/73 this morning, recheck this afternoon. No symptoms, no sob, no chest pain. (3) CHF (congestive heart failure): Patient does not have an echocardiogram in the chart but she reports a history of CHF. (4) Diabetic peripheral neuropathy associated with type 2 diabetes mellitus: Holding home Trulicity, insulin regimen. Continue SSI Continue gabapentin 300 TID A1c 8.3 in July 2019 (5) Hypernatremia: Sodium was 148 on admission. Will recheck am (6) DVT prophylaxis: Lovenox Admission and Anticipated Discharge Date Admission Date: October 06, 2019 Subjective Ms. Carpenter is having pain in her lower back and radiates down the backs of her legs, left more than right, as well as weakness. No loss of control of bowel or bladder. ROS Constitutional: no chills, aches, sweats or fever Respiratory: no sob,cough, sputum, or wheezing Cardiac: no chest pain, palpitations, edema, orthopnea or lightheadedness GI: no abdominal pain, nausea, vomiting, diarrhea or constipation : no dysuria or hesitancy Extremities: no joint pain or weakness Skin: no rash All other systems reviewed and negative Physical Exam Physical Exam: General: no distress Eyes: normal inspection, PERLL Respiratory: chest non tender, clear to auscultation, normal breath sounds, no respiratory distress, no accessory muscle use Cardiac: regular rate and rhythm, no rub or gallop, no murmur, no edema, no jvd GI/: active bowel sounds, no abd pain or tenderness, soft, non distended Extremities: normal range of motion, left leg weaker than right, lower spine tender to palpation Neuro/Psych: alert and oriented x 3, normal mood and affect Skin: normal color, dry Results & Data Results & Data ([facility]) Vital Signs (Past 12 Hours) Vital Signs Temp Pulse Pulse Resp BP Pulse Ox 10/06/19 07:00 36.6 C 62 18 201/73 H 96 10/06/19 05:28 170/74 H 10/06/19 04:38 65 20 150/84 H 99 10/06/19 03:56 74 20 202/96 H 99 10/06/19 03:05 76 20 192/103 H 93 10/06/19 02:38 66 18 159/82 H 98 PG Care Time/CCT Total # of Minutes Spent Total Time Spent with Patient: Total time spent is greater than 50% in coordination of care (as documented) at patient's floor/unit and/or counseling patient: Coding Level of Care Code 41354 Subseq Hosp Care Lvl 3 Diagnoses Lumbar back pain M54.5 Hypertension I10 CHF (congestive heart failure) I50.9 Diabetic peripheral neuropathy associated with type 2 diabetes mellitus E11.42 Hypernatremia E87.0 DVT prophylaxis Z29.9
--- NOTE | 2019-10-06 17:31 | Cardiology Consultation ---
Date of Consultation October 06, 2019 Assessment & Plan (1) CAD (coronary artery disease): I do not believe the patient's perioperative cardiovascular risk can be adequately assessed due to a poor level of exercise tolerance. She has known coronary artery disease although no symptoms of active disease. She does not manifest symptoms of decompensated heart failure. He is not appear to have malignant arrhythmias or symptoms of arrhythmia. Her examination is not consistent with severe valvular heart disease. Patient is currently deciding whether she would want surgery. I think undergoing perfusion imaging would help with risk stratification and may guide her with respect to a decision regarding surgery. There do appear to be alternatives to operative intervention, and if her perfusion study suggested high risk disease perhaps she would pursue non operative intervention 1st. As with all patients, in order to avoid perioperative cardiovascular events, it would be important to avoid significant hypotension, hypertension, blood loss, hypoxia or tachycardia. Continuation of her beta-dang in the perioperative period is also recommended. History of Present Illness Reason for Consultation: Preoperative evaluation Requesting Physician: Robin Attending Physician: Alex Kelly MD History of Present Illness The patient is a 79-year-old woman with a remote history of coronary artery disease having previously undergone percutaneous intervention to the LAD in 2012. She was admitted to the hospital for persistent back pain, difficulty walking and some neurologic symptoms. She is known to have a fracture of her lower back and was recently discovered to have spinal stenosis in addition. She states she has difficulty ambulating and has pain most of the time he without ambulation. This seems to be controlled currently by narcotic use. She was evaluated by the orthopedic surgery service and felt to have anatomy amenable to operative intervention if necessary. The patient has been relatively immobile for several months. Even prior to her recent disability she was not very active. She did not endorse symptoms of chest discomfort. She does have some breathing difficulty at times with ambulation. She attributes this to significant discomfort associated with activity. She has not report paroxysmal nocturnal dyspnea. She has been sleeping on 3 pillows for some time this is not changed recently. She previously did have some lower extremity edema which appears to have resolved with a change in her medical therapy and the addition of a diuretic. She denies any sense of recent palpitations. She has not had dizziness or lightheadedness. No syncope. Allergies Allergy/AdvReac Type Severity Reaction Status Date / Time dapsone Allergy Intermediate RASH Verified 10/05/19 22:53 Sulfa (Sulfonamide Allergy Mild Unknown Verified 10/05/19 22:53 Antibiotics) latex Allergy Unknown UNKNOWN Verified 10/05/19 22:53 Cipro AdvReac Intermediate "i blew up Verified 02/11/17 15:06 like a balloon" per pt ciprofloxacin AdvReac Intermediate "i blew up Verified 10/05/19 22:53 like a balloon" per pt hydrocodone AdvReac Intermediate GI SYMPTOMS Verified 10/05/19 22:53 oxycodone AdvReac Intermediate GI SYMPTOMS Verified 10/05/19 22:53 adhesive AdvReac Unknown unknwn Verified 10/05/19 22:53 metronidazole [From Flagyl] AdvReac Unknown CAN'T Verified 10/05/19 22:53 REMEMBER red dye AdvReac Unknown unknwn Verified 10/05/19 22:53 Home Medications Home Medications Medication Instructions Recorded Confirmed Type mirabegron [Myrbetriq] 50 mg PO HS 08/21/18 10/05/19 History blood-glucose meter #1 ea 08/26/18 09/22/19 History cranberry 500 mg capsule 500 mg PO QAM 08/26/18 10/05/19 History cholecalciferol (vitamin D3) 25 2,000 units PO QAM cap 12/23/18 10/05/19 History mcg (1,000 unit) capsule coenzyme Q10 200 mg capsule 400 mg PO QAM cap 12/23/18 10/05/19 History lancets 33 gauge #100 ea 12/23/18 09/22/19 Rx aspirin [Aspir-81] 81 mg PO QAM 02/04/19 10/05/19 History pen needle, diabetic 32 gauge x #90 ea 02/11/19 09/22/19 Rx 5/32" Truetrack Test #200 ea NS 08/18/19 09/22/19 Rx albuterol sulfate [Proventil HFA] 1 inh INHALATION DAILY PRN 09/18/19 10/05/19 History diclofenac sodium [Voltaren] 2 g TOPICAL BID PRN 09/18/19 10/05/19 History insulin glargine U-300 conc 50 unit SUBCUT QAM 09/18/19 10/05/19 History [Toujeo SoloStar U-300 Insulin] meclizine 25 mg PO DAILY PRN 09/18/19 10/05/19 History ondansetron HCl 4 mg PO Q6H PRN 09/18/19 10/05/19 History atorvastatin 40 mg PO HS 09/19/19 10/05/19 History dulaglutide [Trulicity] 1.5 mg SUBCUT UD 09/19/19 10/05/19 History hydrochlorothiazide 25 mg PO QAM 09/19/19 10/05/19 History lisinopril 40 mg PO QAM 09/19/19 10/05/19 History metoprolol succinate [Toprol XL] 50 mg PO QAM 09/19/19 10/05/19 History tramadol 50 mg tablet 50 mg PO Q8H PRN #90 tab 09/22/19 10/05/19 Rx gabapentin 300 mg PO TID 10/05/19 10/05/19 History lidocaine [Lidoderm] 1 patch TOP DAILY 10/05/19 10/05/19 History Patient History Medical History Abdominal pain (Inactive) Arm DVT (deep venous thromboembolism), acute (Inactive) Arm skin lesion, right C. difficile colitis (Resolved) CHF (congestive heart failure) (Chronic) Contusion, hip (Acute) Dehydration (Acute) Diabetes Fall (Acute) Heart attack (Resolved) Hip pain (Acute) History of diverticulitis Hx of irritable bowel syndrome Hx of renal calculi Lupus (Chronic) Muscular pain (Acute) Stroke (Resolved) Swelling of right upper extremity (Acute) UTI (urinary tract infection) (Resolved) Vertigo (Chronic) Surgical History History of lithotripsy Hx of cholecystectomy S/P cardiac catheterization Stented coronary artery (Chronic) Family History Mother Alzheimer disease Hypertension Brother Diabetes Father Hypertension Sister Lung cancer Other Family history non-contributory Stroke Social History Smoking Status: Never smoker Hx Alcohol Use: No Hx Substance Use: No Preferred Language: [place] Communication Ability: Effective Visual Impairment: No Limitations Hearing Ability: Normal marital status: / Current Living Situation: Alone current occupational status: retired Feels Safe at Home: Yes Childhood Exposure to Second-Hand Smoke: No Seatbelt Use: always Review of Systems Review of Systems: All systems reviewed & are unremarkable except as noted in HPI & below Physical Exam Physical Exam: She is alert and oriented x3. Mood affect appear normal. She answered all questions appropriately. HEENT: Sclerae are anicteric. Pupils are equal and reactive to light and accommodation. Extraocular movements were intact. Neuro: Cranial nerves intact Neck: Examination of the submandibular region did not reveal any significant lymphadenopathy. Carotids are palpable bilaterally and free of bruits on auscultation. There was no evidence of jugular venous distention. The thyroid was not enlarged. Lungs: Her lung examination was abnormal. She had what appeared to be dry rales primarily in the left base. No expiratory wheezing. Normal respiratory effort. Cardiac: The rhythm was regular. S1 and S2 were normal. There are no murmurs on examination. The PMI was not markedly displaced on palpation. Abdomen: The abdomen was soft and nontender. Extremities: Patient has bilateral radial pulses that are equal in intensity. There is no evidence cyanosis or clubbing. There was no evidence of significant peripheral edema bilaterally. Skin: There are no rashes noted on examination today. Results & Data ([facility]) Vital Signs (Past 12 Hours) Vital Signs Temp Pulse Resp BP Pulse Ox 10/06/19 15:55 36.8 C 69 18 122/78 97 10/06/19 13:00 124/74 10/06/19 07:00 36.6 C 62 18 201/73 H 96 10/06/19 05:28 170/74 H Laboratory Results Abnormal Lab Results 10/05/19 10/05/19 10/06/19 22:38 22:38 08:31 WBC 7.25 RBC 4.00 L Hgb 12.8 Hct 38.2 MCV 95.5 MCH 32.0 MCHC 33.5 RDW Std Deviation 48.0 H RDW Coeff of Linda 13.8 Plt Count 192 MPV 9.9 Immature Gran % (Auto) 0.1 Neut % (Auto) 51.5 Lymph % (Auto) 36.0 [place] % (Auto) 10.3 Eos % (Auto) 1.5 Baso % (Auto) 0.6 Neut # (Auto) 3.73 Lymph # (Auto) 2.61 [place] # (Auto) 0.75 H Eos # (Auto) 0.11 Baso # (Auto) 0.04 Immature Gran # (Auto) 0.01 Sodium 148 H Potassium 4.0 Chloride 112 H Carbon Dioxide 26 Anion Gap 10.0 BUN 23 H Creatinine 0.93 Est Cr Clr Drug Dosing Not Reportable Est GFR ( Amer) 67.7 Est GFR (Non-Af Amer) 58.5 BUN/Creatinine Ratio 25.0 H Glucose 188 H POC Glucose 129 H Calcium 9.2 Total Bilirubin 0.3 AST 21 ALT 28 Alkaline Phosphatase 43 L Total Protein 7.2 Albumin 3.4 Globulin 3.8 Albumin/Globulin Ratio 0.9 10/06/19 10/06/19 12:29 17:18 WBC RBC Hgb Hct MCV MCH MCHC RDW Std Deviation RDW Coeff of Linda Plt Count MPV Immature Gran % (Auto) Neut % (Auto) Lymph % (Auto) [place] % (Auto) Eos % (Auto) Baso % (Auto) Neut # (Auto) Lymph # (Auto) [place] # (Auto) Eos # (Auto) Baso # (Auto) Immature Gran # (Auto) Sodium Potassium Chloride Carbon Dioxide Anion Gap BUN Creatinine Est Cr Clr Drug Dosing Est GFR ( Amer) Est GFR (Non-Af Amer) BUN/Creatinine Ratio Glucose POC Glucose 129 H 121 H Calcium Total Bilirubin AST ALT Alkaline Phosphatase Total Protein Albumin Globulin Albumin/Globulin Ratio ECG Additional Comments: EKG obtained on August 13, 2019 revealed normal sinus rhythm with some nonspecific ST and T-wave changes. First-degree AV block. PG Care Time/CCT Total # of Minutes Spent Total Time Spent with Patient: Total time spent is greater than 50% in coordination of care (as documented) at patient's floor/unit and/or counseling patient: Coding Level of Care Code 31227 Initial Inpt Care Lvl 3 Diagnoses CAD (coronary artery disease) I25.10
[2019-10-06] MEDS: MIRABEGRON ER 25 MG TAB PO SCH (21:26)
[2019-10-06] MEDS: ATORVASTATIN 40 MG TAB PO SCH (21:26)
[2019-10-07] MEDS ORDERED: Nursing to Pharmacy Communication SCH ×2 (02:00→21:30)
[2019-10-07] MEDS: INSULIN ASPART 100 UNITS/ML 3 ML PEN SC SCH ×3 (05:53→17:36)
[2019-10-07 06:30] LABS: Basophils # (auto) 0.04 K/uL (0-0.2); Basophils % (auto) 0.5 %; Eosinophils # (auto) 0.17 K/uL (0-0.5); Eosinophils % (auto) 2.2 %; Hematocrit (blood only) 34.6 % (37-47); Hemoglobin 11.5 g/dL (12.0-16.0); Immature Granulocytes # (auto) 0.02 K/uL (0.00-0.02); Immature Granulocytes % (auto) 0.3 %; Lymphocytes # (auto) 3.53 K/uL (1.2-3.4); Lymphocytes % (auto) 45.3 %; Mean Corpuscular Hemoglobin 31.3 pg (25-34); Mean Corpuscular Hgb Conc 33.2 g/dL (32-36); Mean Platelet Volume 9.5 fL (7.4-10.4); Monocytes # (auto) 0.65 K/uL (0.11-0.59); Monocytes % (auto) 8.3 %; Neutrophils # (auto) 3.38 K/uL (1.4-6.5); Neutrophils % (auto) 43.4 %; Platelet Count 181 K/uL (130-400); RDW Coefficient of Variation 13.7 % (11.5-14.5); RDW Standard Deviation 47.2 fL (36.4-46.3); Red Blood Count 3.68 M/uL (4.2-5.4); White Blood Count 7.79 K/uL (4.8-10.8)
[2019-10-07 07:04] LABS: BUN Creatinine Ratio 28.6 (10-20); Bilirubin Direct 0.1 mg/dl (0-0.2); Calcium 9.1 mg/dl (8.5-10.1); Creatinine Clr Calc Pharmacy 38.6 ml/min; Est GFR (African American) 56.5; Est GFR (Non-African American) 48.8; Potassium 3.8 mmol/L (3.5-5.1)
[2019-10-07 07:07] LABS: Albumin Globulin Ratio 0.9 (0.9-2); Bilirubin,Total 0.8 mg/dl (0.2-1); Globulin 3.2 gm/dl (2.5-4.0); Total Protein 6.2 gm/dl (6.4-8.2)
[2019-10-07] MEDS: GABAPENTIN 300 MG CAP PO SCH ×3 (08:34→20:24)
[2019-10-07] MEDS: METOPROLOL SUCC 50MG EXT REL TAB PO SCH (08:35)
[2019-10-07] MEDS: LIDOCAINE 5% 1 PATCH TD SCH (08:35)
[2019-10-07] MEDS: hydroCHLOROthiazide 25 MG TAB PO SCH (08:36)
[2019-10-07] MEDS: ENOXAPARIN INJ 40 MG/0.4 ML SYR SQ SCH (08:36)
[2019-10-07] MEDS: lisinopriL 40 MG TAB PO SCH (08:36)
[2019-10-07] MEDS: ASPIRIN 81 MG ECTAB PO SCH (08:36)
[2019-10-07] MEDS: CHOLECALCIFEROL 1,000 UNITS 25 MCG TAB PO SCH (08:36)
[2019-10-07] MEDS: ACETAMINOPHEN 325 MG TAB PO SCH ×3 (08:37→20:24)
[2019-10-07] MEDS: KETOROLAC TROMETHAMINE 15 MG/ML VIAL IV PRN ×2 (09:58→22:50)
[2019-10-07] MEDS ORDERED: REGADENOSON 0.4 MG/5 ML SYR IV ONE (11:02)
--- NOTE | 2019-10-07 14:15 | Cardiology Progress Note ---
Date of Service October 07, 2019 Assessment & Plan (1) CAD (coronary artery disease): -LAD ASIA, April 2012 -quiescent on current medical regimen. -agree with nuclear medicine stress test as a preoperative evaluation. (2) Hypertension: -adequate control on current regimen. (3) Hyperlipidemia: -continue atorvastatin. (4) Preoperative cardiovascular examination: -normal Lexiscan stress test. -acceptable cardiac risk for surgery as planned. Admission and Anticipated Discharge Date Admission Date: October 06, 2019 Subjective The patient is resting comfortably in the bedside chair without complaints of chest pain or dyspnea. She is uncertain as to whether she will have surgery performed. Physical Exam Physical Exam: In general is well-developed well-nourished white female no acute distress. HEENT exam is negative. Neck is supple with full carotid upstrokes. No carotid bruit. Jugular is pressure is flat at 90. No thyromegaly. Cardiovascular exam reveals a regular rhythm with a normal S1-S2. Heart sounds are distant. No obvious murmurs. Lungs are clear without rales, rhonchi or wheezes. Abdomen is soft without bruits extremities reveal intact radial artery pulses bilaterally. There is no peripheral edema. Results & Data ([facility]) Vital Signs (Past 12 Hours) Vital Signs Temp Pulse Resp BP Pulse Ox 10/07/19 08:48 72 148/86 H 10/07/19 07:32 36.6 C 64 18 103/60 93 PG Care Time/CCT Total # of Minutes Spent Total Time Spent with Patient: Total time spent is greater than 50% in coordination of care (as documented) at patient's floor/unit and/or counseling patient: Coding Level of Care Code 68154 Subseq Hosp Care Lvl 3 Diagnoses CAD (coronary artery disease) I25.10 Hypertension I10 Hyperlipidemia E78.5 Preoperative cardiovascular examination Z01.810
--- NOTE | 2019-10-07 14:41 | Myocardial Perfusion Study ---
Date of Service October 07, 2019 Myocardial Perfusion Study Blk Myocardial Perfusion Study Report PA Act 112: Negative Myocardial Perfusion Study Report One day nuclear medicine technetium 99m Cardiolite myocardial perfusion scan Clinical history: This stress test is being performed as a preoperative cardiovascular evaluation. The patient has known coronary disease. Comparison: None Technique: For the stress portion of the study, 31.2 mCi of technetium 99m Cardiolite IV was injected at 12:40 p.m. on October 07, 2019. Thirty minutes following the injection, imaging of the heart was performed in multiple projections. For the rest portion of the study, 10.1 mCi of technetium 99m Cardiolite was injected IV at 10:40 a.m. on October 07, 2019. One hour following the injection, imaging of the heart was performed in the same projections. Lexiscan administration: For the stress portion of the study, the patient received 0.4 mg of Lexiscan injected intravenously. The patient did not experience Lexiscan induced chest discomfort. There were no EKG changes. Following the study, the patient was hemodynamically stable and without complaints. Findings: The short axis, vertical long axis, horizontal long axis, rotating, and gated images were reviewed in detail. There was normal myocardial perfusion at both stress and rest thus excluding a prior myocardial infarction or evidence of stress induced myocardial ischemia. The left ventricle demonstrates normal systolic function without wall motion abnormalities. The left ventricular ejection fraction is 73 %. Conclusions: 1. No scintigraphic evidence of a prior myocardial infarction or stress-induced myocardial ischemia. 2. No Lexiscan induced chest pain. 3. No Lexiscan induced EKG changes. 4. Normal left ventricular systolic function without wall motion abnormality. Left ventricular ejection fraction is 73 %. [facility] Myocardial perfusion code Indication for Procedure (1) CAD (coronary artery disease): (2) Hypertension: (3) Hyperlipidemia: (4) Preoperative cardiovascular examination: Procedure Code Procedure 1: Myocardial Perfusion Codes: 44397 Cardiovascular Stress Test, multiple Procedure 2: Myocardial Perfusion Codes: 88232 Cardiovascular Stress Test, supervision only Procedure 3: Myocardial Perfusion Codes: 59396 Cardiovascular Stress Test, interpretation and report
--- NOTE | 2019-10-07 16:59 | Hospitalist Progress Note ---
Date of Service October 07, 2019 Assessment & Plan (1) Lumbar back pain: Lumbar spine CT: Multilevel spondylytic changes. Superior endplate L5 compression fracture demonstrating 50% loss in height and 5 mm of retropulsion. There is secondary severe spinal stenosis. MRI lumbar spine ([facility]): Compression fracture L5 and grade 1 anterolisthesis of L4 on L5 are similar to prior CT. Combination of listhesis, mild retropulsion and facet arthropathy/ligamentous hypertrophy causing moderate to severe canal stenosis at L4-L5. Edema within L5 fracture anterior superiorly and there is minimal prevertebral edema. Otherwise degenerative changes cause mild to moderate canal and foraminal stenosis Pain management with MARIE Tylenol, lidocaine patch, heat pad. PRN IV Toradol for moderate pain, IV morphine for severe breakthrough pain. Holding home tramadol PT OT eval's ordered for likely rehab placement Appreciate CM assistance with placement. Patient and daughter state that they would prefer to go to [facility] over [facility]. COVID pending Consulted ortho spine - patient is considering surgery but is very hesitant. Will discuss with her family. Cardiology consulted for preop evaluation. Lexiscan stress test performed today which was normal. Per cardiology, acceptable cardiac risk for surgery. Following cardiology's evaluation, patient's RCRI is 10% as she did not demonstrate ischemic heart disease and has a normal EF (patient reports history of CHF but I do not see any records supporting this and she does not appear to be in active CHF exacerbation). Patient is optimized should she choose to go to surgery (2) Hypertension: HTN/HLD/CAD. 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 Continue ASA 81, atorvastatin 40, coenzyme Q10, HCTZ 25, lisinopril 40, Toprol- XL 50 Blood pressures improved (3) Diabetic peripheral neuropathy associated with type 2 diabetes mellitus: Holding home Trulicity, insulin regimen. Continue SSI Continue gabapentin 300 TID A1c 8.3 in July 2019 (4) Hypernatremia: Resolved (5) DVT prophylaxis: Lovenox Admission and Anticipated Discharge Date Admission Date: October 06, 2019 Subjective Ms. Jangs pain is better controlled today, continues to have some radi ation down the backs of her legs, no numbness. She continues to feel very weak on her feet. No loss of control of bowel or bladder ROS Constitutional: no chills, aches, sweats or fever Respiratory: no sob,cough, sputum, or wheezing Cardiac: no chest pain, palpitations, edema, orthopnea or lightheadedness GI: no abdominal pain, nausea, vomiting, diarrhea or constipation : no dysuria or hesitancy Extremities: no joint pain or weakness Skin: no rash All other systems reviewed and negative Physical Exam Physical Exam: General: no distress Eyes: normal inspection, PERLL Respiratory: chest non tender, clear to auscultation, normal breath sounds, no respiratory distress, no accessory muscle use Cardiac: regular rate and rhythm, no rub or gallop, no murmur, no edema, no jvd GI/: active bowel sounds, no abd pain or tenderness, soft, non distended Extremities: normal range of motion, normal strength, non tender Neuro/Psych: alert and oriented x 3, normal mood and affect Skin: normal color, dry Results & Data Results & Data ([facility]) Vital Signs (Past 12 Hours) Vital Signs Temp Pulse Resp BP Pulse Ox 10/07/19 15:02 36.7 C 71 16 152/77 H 93 10/07/19 08:48 72 148/86 H 10/07/19 07:32 36.6 C 64 18 103/60 93 PG Care Time/CCT Total # of Minutes Spent Total Time Spent with Patient: Total time spent is greater than 50% in coordination of care (as documented) at patient's floor/unit and/or counseling patient: Coding Level of Care Code 00032 Subseq Hosp Care Lvl 3 Diagnoses Lumbar back pain M54.5 Hypertension I10 Diabetic peripheral neuropathy associated with type 2 diabetes mellitus E11.42 Hypernatremia E87.0 DVT prophylaxis Z29.9
[2019-10-07] MEDS: ATORVASTATIN 40 MG TAB PO SCH (20:23)
[2019-10-07] MEDS: MIRABEGRON ER 25 MG TAB PO SCH (20:24)
[2019-10-07] MEDS ORDERED: POLYETHYLENE (MIRALAX) 17 GM PACK PO PRN (22:17)
[2019-10-08 05:59] LABS: Hematocrit (blood only) 34.6 % (37-47); Hemoglobin 11.6 g/dL (12.0-16.0); Mean Corpuscular Hgb Conc 33.5 g/dL (32-36); Mean Corpuscular Volume 95.3 fL (80-100); Mean Platelet Volume 9.8 fL (7.4-10.4); Platelet Count 175 K/uL (130-400); RDW Coefficient of Variation 13.7 % (11.5-14.5); RDW Standard Deviation 47.7 fL (36.4-46.3); Red Blood Count 3.63 M/uL (4.2-5.4); White Blood Count 6.82 K/uL (4.8-10.8)
[2019-10-08 06:28] LABS: BUN Creatinine Ratio 41.8 (10-20); Calcium 9.1 mg/dl (8.5-10.1); Creatinine Clr Calc Pharmacy 45.3 ml/min; Est GFR (African American) 68.6; Est GFR (Non-African American) 59.2; Potassium 4.1 mmol/L (3.5-5.1)
--- NOTE | 2019-10-08 07:48 | Orthopedic Progress Note ---
Date of Service October 07, 2019 Assessment & Plan (1) Neurogenic claudication due to lumbar spinal stenosis: Surgically the patient would require a lumbar decompression fusion L 4 L5. Risk benefits pros cons and alternatives outlined. She will discuss with her family and notify us in which direction she would like to proceed. Present on Admission?: Yes Admission and Anticipated Discharge Date Admission Date: October 06, 2019 Subjective Checked in with this patient this morning. She is continuing to decide to consider a possible surgical intervention. Her symptom complex has not changed. Physical Exam Physical Exam: On exam she is neurologically intact. Results & Data ([facility]) Vital Signs (Past 12 Hours) Vital Signs Temp Pulse Resp BP Pulse Ox 10/07/19 07:32 36.6 C 64 18 103/60 93 10/06/19 23:25 36.7 C 71 16 173/73 H 91
[2019-10-08] MEDS: INSULIN ASPART 100 UNITS/ML 3 ML PEN SC SCH ×4 (09:23→21:10)
[2019-10-08] MEDS: ASPIRIN 81 MG ECTAB PO SCH (09:24)
[2019-10-08] MEDS: lisinopriL 40 MG TAB PO SCH (09:25)
[2019-10-08] MEDS: ACETAMINOPHEN 325 MG TAB PO SCH ×3 (09:25→21:07)
[2019-10-08] MEDS: CHOLECALCIFEROL 1,000 UNITS 25 MCG TAB PO SCH (09:25)
[2019-10-08] MEDS: METOPROLOL SUCC 50MG EXT REL TAB PO SCH (09:26)
[2019-10-08] MEDS: hydroCHLOROthiazide 25 MG TAB PO SCH (09:26)
[2019-10-08] MEDS: ENOXAPARIN INJ 40 MG/0.4 ML SYR SQ SCH (09:26)
[2019-10-08] MEDS: GABAPENTIN 300 MG CAP PO SCH ×3 (09:28→21:07)
[2019-10-08] MEDS: LIDOCAINE 5% 1 PATCH TD SCH (09:28)
[2019-10-08] MEDS: KETOROLAC TROMETHAMINE 15 MG/ML VIAL IV PRN (17:08)
[2019-10-08] MEDS ORDERED: TRAMADOL HCL 50 MG TABLET PO PRN (17:45)
--- NOTE | 2019-10-08 17:48 | Hospitalist Progress Note ---
Date of Service October 08, 2019 Assessment & Plan (1) Lumbar back pain: Lumbar spine CT: Multilevel spondylytic changes. Superior endplate L5 compression fracture demonstrating 50% loss in height and 5 mm of retropulsion. There is secondary severe spinal stenosis. MRI lumbar spine ([facility]): Compression fracture L5 and grade 1 anterolisthesis of L4 on L5 are similar to prior CT. Combination of listhesis, mild retropulsion and facet arthropathy/ligamentous hypertrophy causing moderate to severe canal stenosis at L4-L5. Edema within L5 fracture anterior superiorly and there is minimal prevertebral edema. Otherwise degenerative changes cause mild to moderate canal and foraminal stenosis Pain management with MARIE Tylenol, lidocaine patch, heat pad. PRN IV Toradol for moderate pain, IV morphine for severe breakthrough pain. Resume home tramadol PT OT eval's ordered for likely rehab placement Consulted ortho spine - patient is considering surgery but is very hesitant. Does not want to commit to surgery this hospitalization Cardiology consulted for preop evaluation. Lexiscan stress test performed today which was normal. Per cardiology, acceptable cardiac risk for surgery. Following cardiology's evaluation, patient's RCRI is 10% as she did not demonstrate ischemic heart disease and has a normal EF (patient reports history of CHF but I do not see any records supporting this and she does not appear to be in active CHF exacerbation). Discussed patient's risk profile with her and her daughter in law. Patient is optimized should she choose to go to surgery (2) Hypertension: HTN/HLD/CAD. 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 Continue ASA 81, atorvastatin 40, coenzyme Q10, HCTZ 25, lisinopril 40, Toprol- XL 50 Blood pressures improved (3) Diabetic peripheral neuropathy associated with type 2 diabetes mellitus: Holding home Trulicity, insulin regimen. Continue SSI Continue gabapentin 300 TID A1c 8.3 in July 2019 (4) Hypernatremia: Mild - Na 146 - repeat bmp tomorrow morning. (5) DVT prophylaxis: Lovenox dispo: to [facility] tomorrow Admission and Anticipated Discharge Date Admission Date: October 06, 2019 Subjective Ms. Carpenter's pain is improved though still with lower back pain at times that radiates down the legs. No changes in bowels or bladder. She is also having some neck pain. ROS Constitutional: no chills, aches, sweats or fever Respiratory: no sob,cough, sputum, or wheezing Cardiac: no chest pain, palpitations, edema, orthopnea or lightheadedness GI: no abdominal pain, nausea, vomiting, diarrhea or constipation : no dysuria or hesitancy Extremities: no joint pain or weakness Skin: no rash All other systems reviewed and negative Physical Exam Physical Exam: General: no distress Eyes: normal inspection, PERLL Respiratory: chest non tender, clear to auscultation, normal breath sounds, no respiratory distress, no accessory muscle use Cardiac: regular rate and rhythm, no rub or gallop, no murmur, no edema, no jvd GI/: active bowel sounds, no abd pain or tenderness, soft, non distended Extremities: normal range of motion, equal leg strength, right paraspinal neck muscles tender to palpation, no pain along C spine to palpation Neuro/Psych: alert and oriented x 3, normal mood and affect Skin: normal color, dry Results & Data Results & Data ([facility]) Vital Signs (Past 12 Hours) Vital Signs Temp Pulse Resp BP Pulse Ox 10/08/19 15:02 36.5 C 69 18 139/79 96 10/08/19 09:18 67 156/77 H 10/08/19 07:42 36.5 C 59 L 16 125/74 98 PG Care Time/CCT Total # of Minutes Spent Total Time Spent with Patient: Total time spent is greater than 50% in coordination of care (as documented) at patient's floor/unit and/or counseling patient: Coding Level of Care Code 16946 Subseq Hosp Care Lvl 2 Diagnoses Lumbar back pain M54.5 Hypertension I10 Diabetic peripheral neuropathy associated with type 2 diabetes mellitus E11.42 Hypernatremia E87.0 DVT prophylaxis Z29.9
[2019-10-08] MEDS ORDERED: LIDOCAINE 5% 1 PATCH TD SCH (18:00)
--- NOTE | 2019-10-08 18:57 | XRay Report ---
XR cervical spine 2 or 3V CLINICAL HISTORY: neck pain COMPARISON STUDY: 12/24/2018 FINDINGS: No fractures are visualized. There is mild retrolisthesis of C5 on C6, unchanged from the p rior study. There is mild anterolisthesis of C6 on C7, unchanged from the prior study. IMPRESSION: Degenerative change. No acute fractures or traumatic subluxations identified ACT 112: Negative or not required by law. Electronically signed by: Tom Genao M.D. 10/08/2019 6:55 PM
[2019-10-08] MEDS: ATORVASTATIN 40 MG TAB PO SCH (21:07)
[2019-10-08] MEDS: MIRABEGRON ER 25 MG TAB PO SCH (21:07)
[2019-10-09] MEDS: KETOROLAC TROMETHAMINE 15 MG/ML VIAL IV PRN (00:25)
[2019-10-09 05:58] LABS: Basophils # (auto) 0.01 K/uL (0-0.2); Basophils % (auto) 0.1 %; Eosinophils # (auto) 0.19 K/uL (0-0.5); Eosinophils % (auto) 2.8 %; Hematocrit (blood only) 32.8 % (37-47); Hemoglobin 11.1 g/dL (12.0-16.0); Immature Granulocytes # (auto) 0.02 K/uL (0.00-0.02); Immature Granulocytes % (auto) 0.3 %; Lymphocytes % (auto) 47.5 %; Mean Corpuscular Hemoglobin 31.6 pg (25-34); Mean Corpuscular Hgb Conc 33.8 g/dL (32-36); Mean Corpuscular Volume 93.4 fL (80-100); Mean Platelet Volume 9.9 fL (7.4-10.4); Monocytes # (auto) 0.54 K/uL (0.11-0.59); Neutrophils # (auto) 2.77 K/uL (1.4-6.5); Neutrophils % (auto) 41.3 %; Platelet Count 180 K/uL (130-400); RDW Coefficient of Variation 13.6 % (11.5-14.5); RDW Standard Deviation 46.1 fL (36.4-46.3); Red Blood Count 3.51 M/uL (4.2-5.4); White Blood Count 6.73 K/uL (4.8-10.8)
[2019-10-09 06:23] LABS: Calcium 9.2 mg/dl (8.5-10.1); Creatinine Clr Calc Pharmacy 39.7 ml/min; Est GFR (African American) 58.5; Est GFR (Non-African American) 50.5; Potassium 3.9 mmol/L (3.5-5.1)
[2019-10-09] MEDS: INSULIN ASPART 100 UNITS/ML 3 ML PEN SC SCH ×2 (09:23→13:06)
[2019-10-09] MEDS: ACETAMINOPHEN 325 MG TAB PO SCH ×2 (09:32→13:07)
[2019-10-09] MEDS: METOPROLOL SUCC 50MG EXT REL TAB PO SCH (09:33)
[2019-10-09] MEDS: LIDOCAINE 5% 1 PATCH TD SCH (09:33)
[2019-10-09] MEDS: GABAPENTIN 300 MG CAP PO SCH ×2 (09:33→13:07)
[2019-10-09] MEDS: ASPIRIN 81 MG ECTAB PO SCH (09:34)
[2019-10-09] MEDS: ENOXAPARIN INJ 40 MG/0.4 ML SYR SQ SCH (09:34)
[2019-10-09] MEDS: hydroCHLOROthiazide 25 MG TAB PO SCH (09:34)
[2019-10-09] MEDS: lisinopriL 40 MG TAB PO SCH (09:34)
[2019-10-09] MEDS: CHOLECALCIFEROL 1,000 UNITS 25 MCG TAB PO SCH (09:35)
--- NOTE | 2019-10-09 12:25 | Discharge Summary ---
Date of Service October 09, 2019 Admission HPI Per Admitting Provider 79-year-old female with past medical history type 2 diabetes, hypertension, hyperlipidemia, coronary artery disease, CHF, irritable syndrome presents with concerns of ongoing low back pain. Patient has been seen in our ER 3 times over the few weeks or so for same issue. Upon my evaluation patient had received Ativan and is in deep sleep and not easily arousable, so history is unobtainable by patient interview. History obtained from past medical records. On May 15, 2019 patient was lifting a heavy box and dropped it resulting in a trip. Due to COVID pandemic she did not have x-rays until July 11, 2019. This showed a compression fracture with 50% loss of vertebral height and a 5 mm of retropulsion. Patient had been seeing sports medicine Dr. Lainez and has been receiving physical therapy, which has not helped. Patient has been taking tramadol, Tylenol, and Aleve daily without improvement of symptoms. Patient normally lives at home independently prior to May requiring no assistance in ADLs. She normally ambulates with walker. Since then she has received family support along with home PT. patient has had numerous falls at home in recent memory. Patient with no previous back surgeries and no hardware in place. Associated numbness and tingling. Patient with no other red flag symptoms of bowel or bladder incontinence, or saddle anesthesia. ER doctor discussed this case with daughter who agreed for admission for likely placement at rehab. Imaging to date: August 11, 2019 hip pelvis x-ray: No fractures within the pelvis or hips. Mild osteoarthritis. August 11, 2019 lumbar spine x-ray: Moderate L5 compression fracture which is age indeterminate but new since CT of August 21, 2018. 50% loss of vertebral body height with approximately 5 mm of retropulsion. Moderate multilevel facet arthrosis and mild multilevel degenerative disc disease. September 18, [address]: Multilevel spondylytic changes. Superior endplate L5 compression fracture demonstrating 50% loss in height and 5 mm of retropulsion. There is secondary severe spinal stenosis. October 06, 2019 MRI lumbar spine ([facility]): Compression fracture L5 and grade 1 anterolisthesis of L4 on L5 are similar to prior CT. combination of listhesis, mild retropulsion and facet arthropathy/ligamentous hypertrophy causing moderate to severe canal stenosis at L4-L5. Edema within L5 fracture anterior superiorly and there is minimal prevertebral edema. Otherwise degenerative changes cause mild to moderate canal and foraminal stenosis. ER course: IV Ativan 1 mg, IV morphine 2 mg, IV Zofran 4 mg Principal Diagnosis Lumbar back pain Discharge Exam Constitutional WD/WN, vitals as above Respiratory normal respiratory effort, lungs clear to auscultation Cardiovascular RRR, no murmur, no edema Gastrointestinal (Abdomen) Inspection/Auscultation: abdomen normal to inspection and normal bowel sounds; abdomen not distended Percussion/Palpation: abdomen soft; abdomen nontender Musculoskeletal no cyanosis or clubbing, extremities motor strength 5/5 Skin no rashes, warm and dry Neurologic moves all extremities and awake Psychiatric A+Ox3, euthymic affect Discharge Data Allergies Allergy/AdvReac Type Severity Reaction Status Date / Time dapsone Allergy Intermediate RASH Verified 10/05/19 22:53 Sulfa (Sulfonamide Allergy Mild Unknown Verified 10/05/19 22:53 Antibiotics) latex Allergy Unknown UNKNOWN Verified 10/05/19 22:53 Cipro AdvReac Intermediate "i blew up Verified 02/11/17 15:06 like a balloon" per pt ciprofloxacin AdvReac Intermediate "i blew up Verified 10/05/19 22:53 like a balloon" per pt hydrocodone AdvReac Intermediate GI SYMPTOMS Verified 10/05/19 22:53 oxycodone AdvReac Intermediate GI SYMPTOMS Verified 10/05/19 22:53 adhesive AdvReac Unknown unknwn Verified 10/05/19 22:53 metronidazole [From Flagyl] AdvReac Unknown CAN'T Verified 10/05/19 22:53 REMEMBER red dye AdvReac Unknown unknwn Verified 10/05/19 22:53 Consultations 10/06/19 02:23 ED Decision to Admit Stat 10/06/19 06:13 Consult Case Management - Discharge Planning Routine 10/06/19 08:48 Consult Orthopedic Surgery Routine 10/06/19 14:18 Consult Cardiology Routine Ordered Studies 10/05/19 22:18 MR lumbar spine wo con Urgent Hospital Course (1) Lumbar back pain: Lumbar spine CT: Multilevel spondylytic changes. Superior endplate L5 compression fracture demonstrating 50% loss in height and 5 mm of retropulsion. There is secondary severe spinal stenosis. MRI lumbar spine ([facility]): Compression fracture L5 and grade 1 anterolisthesis of L4 on L5 are similar to prior CT. Combination of listhesis, mild retropulsion and facet arthropathy/ligamentous hypertrophy causing moderate to severe canal stenosis at L4-L5. Edema within L5 fracture anterior superiorly and there is minimal prevertebral edema. Otherwise degenerative changes cause mild to moderate canal and foraminal stenosis Pain management with [facility] Tylenol, lidocaine patch, heat pad. PRN IV Toradol for moderate pain, IV morphine for severe breakthrough pain. Resume home tramadol PT OT eval's ordered for likely rehab placement Consulted ortho spine - patient is considering surgery but is very hesitant. Does not want to commit to surgery this hospitalization Cardiology consulted for preop evaluation. Lexiscan stress test performed today which was normal. Per cardiology, acceptable cardiac risk for surgery. Following cardiology's evaluation, patient's RCRI is 10% as she did not demonstrate ischemic heart disease and has a normal EF (patient reports history of CHF but I do not see any records supporting this and she does not appear to be in active CHF exacerbation). Discussed patient's risk profile with her and her daughter in law. Patient is optimized should she choose to go to surgery (2) Hypertension: HTN/HLD/CAD. 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 Continue ASA 81, atorvastatin 40, coenzyme Q10, HCTZ 25, lisinopril 40, Toprol- XL 50 Blood pressures improved, follow with pcp (3) Diabetic peripheral neuropathy associated with type 2 diabetes mellitus: Holding home Trulicity, insulin regimen. Continue SSI Continue gabapentin 300 TID A1c 8.3 in July 2019 (4) Hypernatremia: Mild - resolved (5) DVT prophylaxis: Lovenox dispo: to [facility] tomorrow Total Time Total Time Spent Total Time Spent (In Minutes): greater than 30 minutes Discharge Plan Discharge Items Patient Disposition: Transfer [facility] Fac Reason For Visit: LUMBAR PAIN Discharge Diagnosis: Lumbar pain Activity: Resume your previous activity Non-emergency contact: Primary Care Provider Call non-emergency contact if: you have any medication questions Follow-up/Referrals: Markus Castillo MD [Primary Care Provider] - 10/21/19 11:20 am Diet: Regular Addtl Attending Provider Instructions: (1) Lumbar back pain: Lumbar spine CT: Multilevel spondylytic changes. Superior endplate L5 compression fracture demonstrating 50% loss in height and 5 mm of retropulsion. There is secondary severe spinal stenosis. MRI lumbar spine ([facility]): Compression fracture L5 and grade 1 anterolisthesis of L4 on L5 are similar to prior CT. Combination of listhesis, mild retropulsion and facet arthropathy/ligamentous hypertrophy causing moderate to severe canal stenosis at L4-L5. Edema within L5 fracture anterior superiorly and there is minimal prevertebral edema. Otherwise degenerative changes cause mild to moderate canal and foraminal stenosis Pain management with [facility] Tylenol, lidocaine patch, heat pad, tramadol Consulted ortho spine - patient is considering surgery but is very hesitant. Does not want to commit to surgery this hospitalization. She should follow up with Dr. Nance's office A nuclear stress test was performed to help clear Ms. Carpenter for surgery if she chose to go. This test had a normal result and she is an acceptable cardiac risk for surgery (2) Hypertension: HTN/HLD/CAD. 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 Continue aspirin 81, atorvastatin 40, coenzyme Q10, HCTZ 25, lisinopril 40, Toprol-XL 50 Blood pressures improved but still hypertensive at times, continue to follow pressures and adjust medications if necessary (3) Diabetic peripheral neuropathy associated with type 2 diabetes mellitus: Held home [facility] inpatient - can resume home regimen at discharge Continue gabapentin 300 TID A1c 8.3 in July 2019 (4) Hypernatremia: Resolved (5) Headache, neck pain Cervical spine film showed degenerative changes but no acute change, improved with lidocaine patch Headache with post nasal drip and ethmoid sinus tenderness/pressure - recommended patient start Nasacort Pending Studies at Discharge: No Stand-Alone Forms: My [facility] Skilled Items Patient informed of condition?: Yes DNR: No Discharge Level of Care: Skilled Communicable Disease: No Discharge Prognosis: Stable Lines: None Urinary Catheter: No Medications and DC Order Prescriptions: New acetaminophen 325 mg Tablet 650 mg PO TID Qty: 30 RF: 0 lidocaine 5 % Adhesive Patch,Medicated 1 patch transdermal Q24H Qty: 10 RF: 0 lidocaine 5 % Adhesive Patch,Medicated 1 patch transdermal QAM Qty: 10 RF: 0 triamcinolone acetonide [Nasacort] 55 mcg aerosol,spray 1 sprays INTNAS DAILY Qty: 10.8 RF: 0 Continued (DME) pen needle, diabetic [BD Ultra-Fine Cris Pen Needle] 32 gauge x 5/32" needle See Rx Instructions .ROUTE .MEDSUPPLY Qty: 90 RF: 3 (DME) Truetrack Test Strip See Dose Instructions .ROUTE .MEDSUPPLY Qty: 200 RF: 3 cranberry 500 mg capsule 500 mg PO QAM RF: 0 (DME) blood-glucose meter [TrueTrack Smart System] kit See Dose Instructions .ROUTE .MEDSUPPLY Qty: 1 RF: 0 coenzyme Q10 200 mg capsule 400 mg PO QAM RF: 0 (DME) lancets [BD Ultra Fine Lancets] 33 gauge misc See Dose Instructions .ROUTE .MEDSUPPLY Qty: 100 RF: 0 aspirin [Aspir-81] 81 mg Tablet,Delayed Release (Dr/Ec) 81 mg PO QAM RF: 0 Trulicity 1.5 mg/0.5 mL pen injector 1.5 mg SUBCUT UD RF: 0 atorvastatin 40 mg tablet 40 mg PO HS RF: 0 metoprolol succinate [Toprol XL] 50 mg tablet extended release 24 hr 50 mg PO QAM RF: 0 hydrochlorothiazide 25 mg tablet 25 mg PO QAM RF: 0 lisinopril 40 mg tablet 40 mg PO QAM RF: 0 gabapentin 300 mg Capsule 300 mg PO TID RF: 0 lidocaine [Lidoderm] 5 % adhesive patch,medicated 1 patch TOP DAILY RF: 0 tramadol [Ultram] 50 mg tablet 50 mg PO Q8H PRN (Reason: pain) Qty: 10 RF: 1 Myrbetriq 50 mg tablet extended release 24 hr 50 mg PO HS RF: 0 cholecalciferol (vitamin D3) [Vitamin D3] 1,000 unit capsule 2,000 units PO QAM RF: 0 ondansetron HCl 4 mg Tablet 4 mg PO Q6H PRN (Reason: Nausea) RF: 0 meclizine 25 mg Tablet 25 mg PO DAILY PRN (Reason: dizzyness) RF: 0 albuterol sulfate [Proventil HFA] 90 mcg/actuation Hfa Aerosol Inhaler 1 inh INHALATION DAILY PRN (Reason: Shortness Of Breath Or Wheezing) RF: 0 diclofenac sodium [Voltaren] 1 % Gel 2 g TOPICAL BID PRN (Reason: Pain) RF: 0 Toujeo SoloStar U-300 Insulin 300 unit/mL (1.5 mL) insulin pen 50 unit SUBCUT QAM RF: 0 Discharge Orders: Discharge Order (Routine); Ordered 10/09/19 Ordered By: Jannette Palacios Admission Data Admit Date/Time: 10/06/19 03:30 Attending Provider: Alex Kelly Admit Provider: John Rao Primary Care Provider: Markus Castillo V. Other Providers: [facility] ; Alex Kelly ; Henri[facility] Nance ; [facility] ; Eliecer Perez Other Interventions: Discharge Summary Assessment (RN) Last Done: 10/09/19 14:02 DC Date/Time DO NOT enter until pt leaves facility: 10/09/19 15:04 Supervising Physician Co-Signing Physician Notes I supervised Jannette Palacios NP on this patient's care. I examined the patient today independently of her. I discussed the plan of care with her with the plan being as written in her note except for any following changes/exceptions: None. Feeling quite well today. No major issues. No report of neck pain to me. Ready for discharge. Coding Level of Care Code D/C Day Management >30 mins Diagnoses Lumbar back pain M54.5 Hypertension I10 Diabetic peripheral neuropathy associated with type 2 diabetes mellitus E11.42 Hypernatremia E87.0 DVT prophylaxis Z29.9
== END 2019-10-09 15:04 | DRG 948 ==
LOC: ED 21:49 → 3N 10-06 03:30 → SUATTDRO 10-06 03:30 → 3N 10-06 04:38

== ENCOUNTER 2020-04-20 19:20 | Inpatient (IN) ==
[2020-04-20] MEDS ORDERED: ONDANSETRON INJ 2 MG/ML 2 ML VIAL IV STA (20:02)
[2020-04-20 20:14] LABS: Appearance Urine Cloudy (Clear); Bacteria Urine Automated 4+ (Negative); Bilirubin Urine Negative (Negative); Blood Urine Negative (Negative); Color Urine Yellow; Epithelial Cell Urine Auto >30 /lpf (0-5); Glucose Urine UA Negative (Negative); Ketones Urine Negative (Negative); Leukocyte Esterase Urine 1+ (Negative); Nitrite Urine Negative (Negative); Protein Urine Trace (Negative); RBC Urine Automated 0-4 /hpf (0-4); Specific Gravity Urine 1.024 (1.000-1.030); Urobilinogen Urine Negative (Negative); WBC Urine Automated >30 /hpf (0-5)
--- NOTE | 2020-04-20 20:15 | Emergency Department Note ---
History of Present Illness General Chief complaint: Illness Stated complaint: FEVER, BODYACHES Time Seen by Provider: 04/20/20 19:30 History of Present Illness Provider complaint: Fever and body aches Onset (ago): week(s) 1 Associated symptoms: + cough, + fever/chills, + nausea/vomiting and + shortness of breath 79-year-old female presents emergency department with a multitude of symptoms. Patient reports she probably presented to the emergency department because of generalized body aches. She states she has had diffuse body aches for the last week. She states she is also been having a fever on and off for the last week. She reports her T-max of 101.6. Patient also reports a dry cough. Patient also reports some exertional dyspnea. Patient also reports some burning with urination. Patient reports that her blood sugars and her blood pressure also been high. Patient states she is very concerned about all the symptoms although she states she has not been traveling recently. Patient also states that she is not stressed. Patient states that she is currently dealing with a shingles infection and states this is her ninth time having shingles. Home Medications Medication Instructions Recorded Confirmed Type cranberry 500 mg capsule 1,000 mg PO QAM 08/26/18 04/20/20 History coenzyme Q10 200 mg capsule 400 mg PO QAM cap 12/23/18 04/20/20 History diclofenac sodium [Voltaren] 2 g TOPICAL BID PRN 09/18/19 04/20/20 History meclizine 25 mg PO DAILY PRN 09/18/19 04/20/20 History ondansetron HCl 4 mg PO Q6H PRN 09/18/19 04/20/20 History lisinopril 40 mg PO QAM 09/19/19 04/20/20 History atorvastatin 40 mg tablet 40 mg PO HS #90 tab 11/06/19 04/20/20 Rx cholecalciferol (vitamin D3) 2,000 unit PO QAM 11/11/19 04/20/20 History [Vitamin D3] exfgvxqs-[id number]-KV-calcium-mins 1 tab PO DAILY 11/11/19 04/20/20 History [Women's One Daily] BD Ultra-Fine Cris Pen Needle 32 #100 ea NS 12/24/19 01/13/20 Rx gauge x 5/32" Truetrack Test #100 ea NS 12/24/19 01/13/20 Rx mirabegron 50 mg tablet,extended 50 mg PO HS #90 tab 12/24/19 04/20/20 Rx release 24 hr tramadol 50 mg tablet 50 mg PO Q12H PRN #60 tab 12/24/19 04/20/20 Rx sennosides 8.6 mg tablet 8.6 mg PO HS PRN tab 12/26/19 04/20/20 History aspirin 81 mg PO QAM 12/28/19 04/20/20 History duloxetine 20 mg PO QAM 12/28/19 04/20/20 History insulin glargine U-300 conc 50 unit SUBCUT DAILY 12/28/19 04/20/20 History [[place]oucas SoloStar U-300 Insulin] Trulicity 1.5 mg/0.5 mL 1.5 mg SUBCUT WK 90 Days #6 ml NS 12/30/19 04/20/20 Rx subcutaneous pen injector acetaminophen 500 mg tablet 1,000 mg PO HS 01/13/20 04/20/20 History docusate sodium 100 mg capsule 100 mg PO BID PRN cap 01/13/20 04/20/20 History triamcinolone acetonide 55 mcg 1 spray INTNAS DAILY PRN ml 01/13/20 04/20/20 History nasal spray aerosol metoprolol succinate 50 mg 50 mg PO QAM #90 tab 02/19/20 04/20/20 Rx tablet,extended release 24 hr albuterol sulfate 90 mcg/actuation 1 - 2 inh INHALATION Q4H PRN #3 04/07/20 04/20/20 Rx aerosol inhaler inhaler lidocaine 5 % topical patch 1 patch TRANSDERMAL Q24H #3 box 04/19/20 04/20/20 Rx Lactobacillus acidophilus 10,000 mmu cells PO DAILY 04/20/20 04/20/20 History [Probiotic] amlodipine 2.5 mg PO QAM 04/20/20 04/20/20 History biotin 10 mg PO DAILY 04/20/20 04/20/20 History gabapentin 200 mg PO AMHS 04/20/20 04/20/20 History Allergies Allergy/AdvReac Type Severity Reaction Status Date / Time dapsone Allergy Intermediate Rash Verified 01/13/20 12:10 Sulfa (Sulfonamide Allergy Mild Unknown Verified 01/13/20 12:10 Antibiotics) latex Allergy Unknown Unknown Verified 01/13/20 12:10 Cipro AdvReac Intermediate "i blew up Verified 02/11/17 15:06 like a balloon" per pt ciprofloxacin AdvReac Intermediate "i blew up Verified 01/13/20 12:10 like a balloon" per pt hydrocodone AdvReac Intermediate GI SYMPTOMS Verified 01/13/20 12:10 oxycodone AdvReac Intermediate GI SYMPTOMS Verified 01/13/20 12:10 adhesive AdvReac Unknown Unknown Verified 01/13/20 12:10 metronidazole [From Flagyl] AdvReac Unknown Unknown Verified 01/13/20 12:10 red dye AdvReac Unknown Unknown Verified 01/13/20 12:10 Past Med/Surg History Medical History (Updated 04/20/20 @ 22:19 by Emmanuel Jeter) Abdominal pain Acute low back pain with bilateral sciatica Arm DVT (deep venous thromboembolism), acute Arm injuries Arm skin lesion, right C. difficile colitis Chest wall contusion Contusion, hip Dehydration Diabetes Edema leg Fall Hip pain Hx of renal calculi Injury of hip Lupus Muscular pain Spinal stenosis of lumbar region Stroke Swelling of right upper extremity UTI (urinary tract infection) Vertigo Surgical History History of lithotripsy Hx of cholecystectomy S/P cardiac catheterization Family History Mother Alzheimer disease Hypertension Brother Diabetes Father Hypertension Sister Lung cancer Other Family history non-contributory Stroke Social History Smoking Status: Never smoker Second Hand Exposure: No; Hx Alcohol Use: No Hx Substance Use: No Preferred Language: Czech Communication Ability: Effective Visual Impairment: No Limitations Hearing Ability: Normal marital status: / Current Living Situation: Alone current occupational status: retired Feels Safe at Home: Yes Childhood Exposure to Second-Hand Smoke: No Dental Care, Regularly: No Physical Activity Frequency: Does not Exercise Seatbelt Use: always Sunscreen Use: No Assistive Devices: Glasses and Walker Review of Systems A total of 10 systems reviewed and were otherwise negative Physical Exam Vital Signs Vital Signs - 24 hr 04/20/20 19:24 04/20/20 19:55 04/20/20 19:56 Temperature 36.8 C Temperature Source Temporal Artery Scan Pulse Rate 98 H Pulse Rate [Left] Pulse Rhythm [Left] Pulse Strength [Left] Respiratory Rate 18 Respiratory Effort / Characteristics Non-Labored Spontaneous Non-Labored Spontaneous Respiratory Depth Normal Respiratory Pattern Regular Blood Pressure 182/77 H Blood Pressure [Left Arm] Blood Pressure Mean 112 Blood Pressure Mean [Left Arm] Blood Pressure Position Sitting Blood Pressure Position [Left Arm] Pulse Oximetry 92 94 94 Oxygen Delivery Method Room Air Room Air Room Air Oxygen Flow Rate Sepsis Recent Fever Within 48 Hours No Sepsis New/Unexplained Change in Mental Status No Sepsis Action Taken by Nursing No Action Required 04/20/20 20:09 04/20/20 21:40 04/20/20 21:41 Temperature Temperature Source Pulse Rate Pulse Rate [Left] 98 H 89 Pulse Rhythm [Left] Regular Regular Pulse Strength [Left] Normal Normal Respiratory Rate 18 16 Respiratory Effort / Characteristics Non-Labored Spontaneous Non-Labored Spontaneous Respiratory Depth Normal Normal Respiratory Pattern Blood Pressure Blood Pressure [Left Arm] 173/94 H 146/82 H Blood Pressure Mean Blood Pressure Mean [Left Arm] 120 103 Blood Pressure Position Blood Pressure Position [Left Arm] Sitting Pulse Oximetry 94 89 L 95 Oxygen Delivery Method Room Air Room Air Nasal Cannula Oxygen Flow Rate 2 Sepsis Recent Fever Within 48 Hours Sepsis New/Unexplained Change in Mental Status Sepsis Action Taken by Nursing Physical Exam GENERAL: She is oriented to person, place, and time. She appears well-developed and well-nourished. She does not appear distressed. HENT: Exam performed. -Head: Normocephalic and atraumatic. -Right Ear: External ear normal. No mastoid tenderness. -Left Ear: External ear normal. No mastoid tenderness. -Mouth/Throat: The oropharynx is clear and moist. No trismus in the jaw. No dental abscesses or uvula swelling. No oropharyngeal exudate or tonsillar abscesses. EYES: Conjunctivae and EOM are normal. Pupils are equal, round, and reactive to light. Right eye exhibits no discharge. Left eye exhibits no discharge. No scleral icterus. NECK: Normal range of motion. Neck supple. No JVD present. No spinous process tenderness present. No carotid bruit present. No rigidity. No tracheal deviation and normal range of motion present. No Brudzinski's sign and no Kernig's sign noted. CV: Normal rate, regular rhythm, normal heart sounds and intact distal pulses. There is no peripheral edema. Palpable radial pulses bue. PULM/CHEST: Effort normal and breath sounds normal. No respiratory distress. No stridor. She has no wheezes. She has no rales. -Chest Wall: She exhibits no tenderness. ABD: The abdomen is soft. Bowel sounds are normal. She has no distension. No mass is present. There is no tenderness. There is no rebound, no guarding, no Altman's sign and no tenderness at McBurney's point. Rovsig negative MUSC/SKEL: Normal range of motion. There is no peripheral edema, tenderness or deformity. LYMPH: No cervical adenopathy. NEURO: She is alert and oriented to person, place, and time. She has normal strength. No cranial nerve deficit or sensory deficit. Coordination and gait normal. GCS eye subscore is 4. GCS verbal subscore is 5. GCS motor subscore is 6. Cerebellar tests wnl. SKIN: Scabbed over lesions in the patient's left inguinal and lower lumbar spine region that wraps around to the left inguinal region. Patient states these are from her last bout of shingles. Patient states she has been picking at them. PSYCH: She has a normal mood and affect. Behavior is normal. Judgment and thought content normal. Course Course 1930: The patient was evaluated in room C4. A complete history and physical exam was performed. Patient was seen in full airborne precautions. Patient was seen in N95's, gloves, gowns, face shield by myself and staff. Cardiac monitoring: An order was placed for continuous cardiac monitoring. The monitor shows a rate of 90 with sinus rhythm 2215: Patient became hypoxic on room air during her emergency department stay. Patient was placed Supplemental oxygen via nasal cannulaWhich improved her oxygen saturation. Labs show an elevated troponin elevated lactic acid level. Patient's urinalysis was concerning for possible UTI so the patient was given Rocephin 1 g IV piggyback in the emergency department. Patient is COVID-19 positive. Given the patient's hypoxia and positive COVID-19 swab, the patient was given Decadron 6 mg IV push and [facility] team has been notified. Administered Medications Sodium Chloride (Nss 1000ml) 1,000 mls @ 125 mls/hr IV .Q8H MARIE Stop: 05/20/20 21:14 Last Admin: 04/20/20 21:41 Dose: 125 mls/hr Documented by: [id number] Discontinued Medications Dexamethasone (Dexamethasone Sod Inj 10 Mg/Ml Vial) 6 mg IV NOW ONE Stop: 04/20/20 22:00 Last Admin: 04/20/20 22:17 Dose: 6 mg Documented by: Ceftriaxone Sodium (Rocephin) 1,000 mg in 50 mls @ 100 mls/hr IV NOW STA Stop: 04/20/20 21:32 Last Infusion: 04/20/20 22:07 Dose: 0 mls/hr Documented by: [id number] Admin: 04/20/20 21:41 Dose: 100 mls/hr Documented by: [id number] Ioversol (Optiray 320 125ml) 119 ml IV ONCE ONE Stop: 04/20/20 21:32 Last Admin: 04/20/20 21:32 Dose: 119 ml Documented by: [id number] Ondansetron HCl (Ondansetron Inj 2 Mg/Ml 2 Ml Vial) 4 mg IV NOW STA Stop: 04/20/20 20:03 Last Admin: 04/20/20 20:04 Dose: 4 mg Documented by: [id number] Critical Care Time Critical Care Time: Yes Total Critical Care Time: 61 I have personally spent greater than 61 minutes of critical care time in the direct management of this patient. This includes bedside care, interpretation of diagnostic studies, and testing, discussion with consultants, patient, and family members, and other required patient management activities. This 61 minutes is in excess of all separately billable procedures. Medical Decision Making Laboratory Data Result diagrams: 04/20/20 20:05 04/20/20 20:05 Lab Results 04/20/20 04/20/20 04/20/20 Range/Units 18:53 18:53 18:53 WBC (4.8-10.8) K/uL RBC (4.2-5.4) M/uL Hgb (12.0-16.0) g/dL Hct (37-47) % MCV (80-100) fL MCH (25-34) pg MCHC (32-36) g/dL RDW Std Deviation (36.4-46.3) fL RDW Coeff of Linda (11.5-14.5) % Plt Count (130-400) K/uL MPV (7.4-10.4) fL Immature Gran % (Auto) % Neut % (Auto) % Lymph % (Auto) % [place] % (Auto) % Eos % (Auto) % Baso % (Auto) % Neut # (Auto) (1.4-6.5) K/uL Lymph # (Auto) (1.2-3.4) K/uL [place] # (Auto) (0.11-0.59) K/uL Eos # (Auto) (0-0.5) K/uL Baso # (Auto) (0-0.2) K/uL Immature Gran # (Auto) (0.00-0.02) K/uL PT (9.0-12.0) Seconds INR (0.9-1.1) APTT (21.0-31.0) Seconds PTT Ratio Sodium (136-145) mmol/L Potassium (3.5-5.1) mmol/L Chloride (98-107) mmol/L Carbon Dioxide (21-32) mmol/L Anion Gap (3-11) BUN (7-18) mg/dl Creatinine (0.6-1.2) mg/dl Est Cr Clr Drug Dosing ml/min Est GFR ( Amer) Est GFR (Non-Af Amer) BUN/Creatinine Ratio (10-20) Glucose (70-99) mg/dl Lactate (0.4-2.0) mmol/L Calcium (8.5-10.1) mg/dl Magnesium (1.8-2.4) mg/dl Total Bilirubin (0.2-1) mg/dl AST (15-37) U/L ALT (12-78) U/L Alkaline Phosphatase (45-117) U/L Troponin I (0-0.045) ng/ml Total Protein (6.4-8.2) gm/dl Albumin (3.4-5.0) gm/dl Globulin (2.5-4.0) gm/dl Albumin/Globulin Ratio (0.9-2) Procalcitonin (0-0.5) ng/ml Urine Color Yellow Urine Appearance Cloudy A (Clear) Urine pH 5.0 (4.5-7.5) Ur Specific [place] 1.024 (1.000-1.030) Urine Protein Trace H (Negative) Urine Glucose (UA) Negative (Negative) Urine Ketones Negative (Negative) Urine Blood Negative (Negative) Urine Nitrite Negative (Negative) Urine Bilirubin Negative (Negative) Urine Urobilinogen Negative (Negative) Ur Leukocyte Esterase 1+ H (Negative) Urine WBC (Auto) >30 H (0-5) /hpf Urine RBC (Auto) 0-4 (0-4) /hpf U Hyaline Cast (Auto) 5-10 H (0-5) /lpf U Epithel Cells (Auto) >30 H (0-5) /lpf Urine Bacteria (Auto) 4+ H (Negative) COVID-19 Eval Order [facility]FluRsv at [facility] SARS-CoV-2 (PCR) POSITIVE A* (Negative) Influenza Type A (PCR) Negative (Neg) Influenza Type B (PCR) Negative (Neg) RSV (RT-PCR) Negative (Neg) 04/20/20 04/20/20 04/20/20 Range/Units 20:05 20:05 20:05 WBC 5.77 (4.8-10.8) K/uL RBC 4.57 (4.2-5.4) M/uL Hgb 13.9 (12.0-16.0) g/dL Hct 40.6 (37-47) % MCV 88.8 (80-100) fL MCH 30.4 (25-34) pg MCHC 34.2 (32-36) g/dL RDW Std Deviation 43.1 (36.4-46.3) fL RDW Coeff of Linda 13.3 (11.5-14.5) % Plt Count 170 (130-400) K/uL MPV 10.0 (7.4-10.4) fL Immature Gran % (Auto) 0.3 % Neut % (Auto) 56.8 % Lymph % (Auto) 28.8 % [place] % (Auto) 13.2 % Eos % (Auto) 0.7 % Baso % (Auto) 0.2 % Neut # (Auto) 3.28 (1.4-6.5) K/uL Lymph # (Auto) 1.66 (1.2-3.4) K/uL [place] # (Auto) 0.76 H (0.11-0.59) K/uL Eos # (Auto) 0.04 (0-0.5) K/uL Baso # (Auto) 0.01 (0-0.2) K/uL Immature Gran # (Auto) 0.02 (0.00-0.02) K/uL PT 10.4 (9.0-12.0) Seconds INR 1.0 (0.9-1.1) APTT 24.4 (21.0-31.0) Seconds PTT Ratio 0.9 Sodium 138 (136-145) mmol/L Potassium 3.9 (3.5-5.1) mmol/L Chloride 104 (98-107) mmol/L Carbon Dioxide 24 (21-32) mmol/L Anion Gap 10.0 (3-11) BUN 19 H (7-18) mg/dl Creatinine 1.02 (0.6-1.2) mg/dl Est Cr Clr Drug Dosing 38.2 ml/min Est GFR ( Amer) 60.6 Est GFR (Non-Af Amer) 52.3 BUN/Creatinine Ratio 18.3 (10-20) Glucose 186 H (70-99) mg/dl Lactate (0.4-2.0) mmol/L Calcium 9.7 (8.5-10.1) mg/dl Magnesium 1.8 (1.8-2.4) mg/dl Total Bilirubin 0.6 (0.2-1) mg/dl AST 31 (15-37) U/L ALT 30 (12-78) U/L Alkaline Phosphatase 64 (45-117) U/L Troponin I 0.054 H* (0-0.045) ng/ml Total Protein 7.9 (6.4-8.2) gm/dl Albumin 3.9 (3.4-5.0) gm/dl Globulin 4.0 (2.5-4.0) gm/dl Albumin/Globulin Ratio 1.0 (0.9-2) Procalcitonin (0-0.5) ng/ml Urine Color Urine Appearance (Clear) Urine pH (4.5-7.5) Ur Specific [place] (1.000-1.030) Urine Protein (Negative) Urine Glucose (UA) (Negative) Urine Ketones (Negative) Urine Blood (Negative) Urine Nitrite (Negative) Urine Bilirubin (Negative) Urine Urobilinogen (Negative) Ur Leukocyte Esterase (Negative) Urine WBC (Auto) (0-5) /hpf Urine RBC (Auto) (0-4) /hpf U Hyaline Cast (Auto) (0-5) /lpf U Epithel Cells (Auto) (0-5) /lpf Urine Bacteria (Auto) (Negative) COVID-19 Eval Order SARS-CoV-2 (PCR) (Negative) Influenza Type A (PCR) (Neg) Influenza Type B (PCR) (Neg) RSV (RT-PCR) (Neg) 04/20/20 04/20/20 Range/Units 20:05 20:05 WBC (4.8-10.8) K/uL RBC (4.2-5.4) M/uL Hgb (12.0-16.0) g/dL Hct (37-47) % MCV (80-100) fL MCH (25-34) pg MCHC (32-36) g/dL RDW Std Deviation (36.4-46.3) fL RDW Coeff of Linda (11.5-14.5) % Plt Count (130-400) K/uL MPV (7.4-10.4) fL Immature Gran % (Auto) % Neut % (Auto) % Lymph % (Auto) % [place] % (Auto) % Eos % (Auto) % Baso % (Auto) % Neut # (Auto) (1.4-6.5) K/uL Lymph # (Auto) (1.2-3.4) K/uL [place] # (Auto) (0.11-0.59) K/uL Eos # (Auto) (0-0.5) K/uL Baso # (Auto) (0-0.2) K/uL Immature Gran # (Auto) (0.00-0.02) K/uL PT (9.0-12.0) Seconds INR (0.9-1.1) APTT (21.0-31.0) Seconds PTT Ratio Sodium (136-145) mmol/L Potassium (3.5-5.1) mmol/L Chloride (98-107) mmol/L Carbon Dioxide (21-32) mmol/L Anion Gap (3-11) BUN (7-18) mg/dl Creatinine (0.6-1.2) mg/dl Est Cr Clr Drug Dosing ml/min Est GFR ( Amer) Est GFR (Non-Af Amer) BUN/Creatinine Ratio (10-20) Glucose (70-99) mg/dl Lactate 2.9 H* (0.4-2.0) mmol/L Calcium (8.5-10.1) mg/dl Magnesium (1.8-2.4) mg/dl Total Bilirubin (0.2-1) mg/dl AST (15-37) U/L ALT (12-78) U/L Alkaline Phosphatase (45-117) U/L Troponin I (0-0.045) ng/ml Total Protein (6.4-8.2) gm/dl Albumin (3.4-5.0) gm/dl Globulin (2.5-4.0) gm/dl Albumin/Globulin Ratio (0.9-2) Procalcitonin < 0.05 (0-0.5) ng/ml Urine Color Urine Appearance (Clear) Urine pH (4.5-7.5) Ur Specific [place] (1.000-1.030) Urine Protein (Negative) Urine Glucose (UA) (Negative) Urine Ketones (Negative) Urine Blood (Negative) Urine Nitrite (Negative) Urine Bilirubin (Negative) Urine Urobilinogen (Negative) Ur Leukocyte Esterase (Negative) Urine WBC (Auto) (0-5) /hpf Urine RBC (Auto) (0-4) /hpf U Hyaline Cast (Auto) (0-5) /lpf U Epithel Cells (Auto) (0-5) /lpf Urine Bacteria (Auto) (Negative) COVID-19 Eval Order SARS-CoV-2 (PCR) (Negative) Influenza Type A (PCR) (Neg) Influenza Type B (PCR) (Neg) RSV (RT-PCR) (Neg) Imaging Data Radiologist's Impression: CTACHEST: No pulmonaryembolism. No acute aortic syndrome. No acute pulmonaryparenchymal abnormality. Mild subpleural interstitial thickening which appears chronic. No pleural effusion or pneumothorax. Cardiomegaly. Radiologist: Paul Cuellar MD Study ready at 21:44 and initial results transmitted at 22:12 XR chest 1V portable HISTORY: SEPSIS COMPARISON: Chest 11/11/2019. FINDINGS: Cardiac silhouette remains mildly enlarged. There is mild chronic interstitial thickening and mild emphysema. No new focal lung consolidations to suggest pneumonia. No evidence for pulmonary edema. IMPRESSION: Emphysema and mild chronic interstitial change. No acute process within the chest. ACT 112: Negative or not required by law. Electronically signed by: Shady Le M.D. 04/20/2020 8:39 PM Dictated: 04/20/202037 Transcribed: 04/20/202037 ECG Data Indication: + SOB/dyspnea Rate (beats per minute): 93 Rhythm: + normal sinus ECG Intervals/blocks: + Normal QRS, + Normal CO and + Normal QT-c ECG ST segments: + Normal ST segments MDM Narrative 1930: The patient was evaluated in room C4. A complete history and physical exam was performed. Patient was seen in full airborne precautions. Patient was seen in N95's, gloves, gowns, face shield by myself and staff. Cardiac monitoring: An order was placed for continuous cardiac monitoring. The monitor shows a rate of 90 with sinus rhythm 2215: Patient became hypoxic on room air during her emergency department stay. Patient was placed Supplemental oxygen via nasal cannulaWhich improved her oxygen saturation. Labs show an elevated troponin elevated lactic acid level. Patient's urinalysis was concerning for possible UTI so the patient was given Rocephin 1 g IV piggyback in the emergency department. Patient is COVID-19 positive. Given the patient's hypoxia and positive COVID-19 swab, the patient was given Decadron 6 mg IV push and [facility] team has been notified. Impression & Plan Hypoxia, COVID-19, Acute UTI, Elevated troponin Discharge Plan Visit Data Chief Complaint: Illness Stated Complaint: FEVER, BODYACHES ED Provider: Emmanuel Jeter Discharge Problem: Hypoxia, COVID-19, Acute UTI, Elevated troponin Patient Disposition: Admitted As Inpatient Forms Stand Alone Forms: My [facility] Prescriptions Prescriptions: No Action sennosides [Senokot] 8.6 mg tablet 8.6 mg PO HS PRN (Reason: constipation) RF: 0 atorvastatin 40 mg tablet 40 mg PO HS Qty: 90 RF: 1 Myrbetriq 50 mg tablet extended release 24 hr 50 mg PO HS Qty: 90 RF: 3 tramadol [Ultram] 50 mg tablet 50 mg PO Q12H PRN (Reason: Pain) Qty: 60 RF: 5 (DME) pen needle, diabetic [BD Ultra-Fine Cris Pen Needle] 32 gauge x 5/32" needle See Rx Instructions .ROUTE .MEDSUPPLY Qty: 100 RF: 3 (DME) Truetrack Test Strip See Rx Instructions .ROUTE .MEDSUPPLY Qty: 100 RF: 3 Trulicity 1.5 mg/0.5 mL pen injector 1.5 mg SUBCUT WK 90 Days Qty: 6 RF: 3 metoprolol succinate [Toprol XL] 50 mg tablet extended release 24 hr 50 mg PO QAM Qty: 90 RF: 3 albuterol sulfate [Proventil HFA] 90 mcg/actuation HFA aerosol inhaler 1 - 2 inh INHALATION Q4H PRN (Reason: Shortness Of Breath Or Wheezing) Qty: 3 RF: 3 lidocaine 5 % adhesive patch,medicated 1 patch transdermal Q24H Qty: 3 RF: 1 cranberry 500 mg capsule 1,000 mg PO QAM RF: 0 coenzyme Q10 200 mg capsule 400 mg PO QAM RF: 0 docusate sodium [Colace] 100 mg capsule 100 mg PO BID PRN (Reason: Constipation) RF: 0 triamcinolone acetonide [Nasacort] 55 mcg aerosol,spray 1 spray INTNAS DAILY PRN (Reason: Congestion) RF: 0 lisinopril 40 mg tablet 40 mg PO QAM RF: 0 acetaminophen [Tylenol Extra Strength] 500 mg tablet 1,000 mg PO HS RF: 0 cholecalciferol (vitamin D3) [Vitamin D3] 50 mcg (2,000 unit) Capsule 2,000 unit PO QAM RF: 0 Women's One Daily 18 mg iron-400 mcg-500 mg Ca Tablet 1 tab PO DAILY RF: 0 aspirin 81 mg Tablet,Delayed Release (Dr/Ec) 81 mg PO QAM RF: 0 duloxetine 20 mg capsule,delayed release(DR/EC) 20 mg PO QAM RF: 0 Toujeo SoloStar U-300 Insulin 300 unit/mL (1.5 mL) insulin pen 50 unit SUBCUT DAILY RF: 0 biotin 10 mg Tablet 10 mg PO DAILY RF: 0 Probiotic 10 billion cell Capsule 10,000 mmu cells PO DAILY RF: 0 amlodipine 2.5 mg tablet 2.5 mg PO QAM RF: 0 gabapentin 100 mg capsule 200 mg PO AMHS RF: 0 ondansetron HCl 4 mg Tablet 4 mg PO Q6H PRN (Reason: Nausea) RF: 0 meclizine 25 mg Tablet 25 mg PO DAILY PRN (Reason: Dizziness) RF: 0 diclofenac sodium [Voltaren] 1 % Gel 2 g TOPICAL BID PRN (Reason: Pain) RF: 0 Referrals Referrals: Markus Castillo MD [Primary Care Provider] -
[2020-04-20 20:21] LABS: Basophils # (auto) 0.01 K/uL (0-0.2); Basophils % (auto) 0.2 %; Eosinophils # (auto) 0.04 K/uL (0-0.5); Eosinophils % (auto) 0.7 %; Hematocrit (blood only) 40.6 % (37-47); Hemoglobin 13.9 g/dL (12.0-16.0); Immature Granulocytes # (auto) 0.02 K/uL (0.00-0.02); Immature Granulocytes % (auto) 0.3 %; Lymphocytes # (auto) 1.66 K/uL (1.2-3.4); Lymphocytes % (auto) 28.8 %; Mean Corpuscular Hemoglobin 30.4 pg (25-34); Mean Corpuscular Hgb Conc 34.2 g/dL (32-36); Mean Corpuscular Volume 88.8 fL (80-100); Monocytes # (auto) 0.76 K/uL (0.11-0.59); Monocytes % (auto) 13.2 %; Neutrophils # (auto) 3.28 K/uL (1.4-6.5); Neutrophils % (auto) 56.8 %; Platelet Count 170 K/uL (130-400); RDW Coefficient of Variation 13.3 % (11.5-14.5); RDW Standard Deviation 43.1 fL (36.4-46.3); Red Blood Count 4.57 M/uL (4.2-5.4); White Blood Count 5.77 K/uL (4.8-10.8)
[2020-04-20 20:32] LABS: Partial Thromboplastin Ratio 0.9; Partial Thromboplastin Time 24.4 Seconds (21.0-31.0); Prothrombin Time 10.4 Seconds (9.0-12.0)
--- NOTE | 2020-04-20 20:40 | XRay Report ---
XR chest 1V portable HISTORY: SEPSIS COMPARISON: Chest 11/11/2019. FINDINGS: Cardiac silhouette remains mildly enlarged. There is mild chronic interstitial thickening a nd mild emphysema. No new focal lung consolidations to suggest pneumonia. No evidence for pulmonary e helen. IMPRESSION: Emphysema and mild chronic interstitial change. No acute process within the chest. ACT 112: Negative or not required by law. Electronically signed by: Shady Le M.D. 04/20/2020 8:39 PM
[2020-04-20 20:41] LABS: Albumin Level 3.9 gm/dl (3.4-5.0); BUN Creatinine Ratio 18.3 (10-20); Calcium 9.7 mg/dl (8.5-10.1); Creatinine Clr Calc Pharmacy 38.2 ml/min; Est GFR (African American) 60.6; Est GFR (Non-African American) 52.3; Magnesium 1.8 mg/dl (1.8-2.4); Potassium 3.9 mmol/L (3.5-5.1)
[2020-04-20 20:50] LABS: Bilirubin,Total 0.6 mg/dl (0.2-1); Total Protein 7.9 gm/dl (6.4-8.2); Troponin I 0.054 ng/ml (0-0.045)
[2020-04-20 20:53] LABS: Influenza A virus by PCR Negative (Neg); Influenza B virus by PCR Negative (Neg); RSV by PCR Negative (Neg)
[2020-04-20] MEDS ORDERED: cefTRIAXone SODIUM 1,000 MG/50 ML BAG IV STA (21:03)
[2020-04-20] MEDS ORDERED: SODIUM CHLORIDE 0.9% 1000ML 1,000 ML IV SCH (21:15)
[2020-04-20 21:17] LABS: SARS CoV2 RNA(COVID-19) InHosp POSITIVE (Negative)
[2020-04-20] MEDS ORDERED: OPTIRAY 320 125ml IV ONE (21:31)
[2020-04-20] MEDS ORDERED: DEXAMETHASONE SOD INJ 10 MG/ML VIAL IV ONE (21:59)
[2020-04-20] MEDS ORDERED: ALBUT/IPRATROP 3MG/0.5MG NEB 3 ML VIAL NEB PRN (23:27)
[2020-04-21] MEDS ORDERED: DICLOFENAC SOD 1% GEL 100 GM TUBE EXT PRN (00:39)
[2020-04-21] MEDS ORDERED: GLUCOSE 10 TABS/TUBE PO PRN (00:39)
[2020-04-21] MEDS ORDERED: GLUCOSE 40% GEL 15 GM TUBE PO PRN (00:39)
[2020-04-21] MEDS ORDERED: GLUCAGON FOR INJ 1 MG VIAL SQ PRN (00:39)
[2020-04-21] MEDS ORDERED: DEXTROSE 50% 50 ML SYRINGE IV PRN (00:39)
[2020-04-21] MEDS ORDERED: SENNA 8.6 MG TAB PO PRN (00:39)
[2020-04-21] MEDS ORDERED: CARBOHYDRATES FOR HYPOGLYCEMIA PO PRN (00:39)
[2020-04-21] MEDS ORDERED: ACETAMINOPHEN 325 MG TAB PO PRN (00:39)
[2020-04-21] MEDS ORDERED: ONDANSETRON INJ 2 MG/ML 2 ML VIAL IV PRN (00:39)
[2020-04-21] MEDS ORDERED: DOCUSATE SODIUM 100 MG CAP PO PRN (00:39)
[2020-04-21] MEDS ORDERED: MECLIZINE HCL 25 MG TAB PO PRN (00:47)
--- NOTE | 2020-04-21 04:05 | History & Physical Report ---
Date of Service April 21, 2020 The patient was seen and examined on April 20, 2020 Assessment & Plan (1) Elevated troponin: Elevated troponin/CAD/hypertension/stented coronary artery Troponin 0.054 upon admission. The patient will be admitted to telemetry for serial cardiac enzymes, serial EKG's, cardiac rhythm monitoring and a 2-D echocardiogram with Dopplers. Continue amlodipine, aspirin, lisinopril and metoprolol succinate Main differential is coronary ischemia versus myopericarditis associated with COVID-19 infection Present on Admission?: Yes (2) COVID-19: COVID-19 respiratory infection with hypoxia- Dexamethasone 6 mg IV every morning Azithromycin 500 mg IV every 24 hours Zinc sulfate 220 mg p.o. every morning Ventolin HFA 2 puffs 4 times daily, and every 2 hours as needed Nasal cannula oxygen, titrate to keep pulse ox around 94 to 95% Present on Admission?: Yes (3) Hypoxia: See above Present on Admission?: Yes (4) Acute UTI: History of recurrent UTI. Rutledge placed on ceftriaxone 1 g IV daily. Follow urine culture and sensitivity Present on Admission?: Yes (5) Diabetes mellitus type 2, uncontrolled: Reduce Toujeo from 50 to 40 units subcu daily. Placed on Accu-Cheks before meals and at bedtime with NovoLog coverage per scale Check hemoglobin A1c Hold Trulicity Present on Admission?: Yes (6) CAD (coronary artery disease): See above Present on Admission?: Yes (7) Stented coronary artery: See above Present on Admission?: Yes (8) Hypertension: See above Present on Admission?: Yes (9) Hyperlipidemia: Continue atorvastatin 40 mg at bedtime Present on Admission?: Yes (10) Post herpetic neuralgia: Postherpetic neuralgia/diabetic peripheral neuropathy- Continue topical agents Voltaren gel and lidocaine patch. Continue gabapentin and tramadol Present on Admission?: Yes (11) Diabetic peripheral neuropathy associated with type 2 diabetes mellitus: See above Present on Admission?: Yes (12) Cerebrovascular disease: History of mild memory loss Present on Admission?: Yes Admission and Anticipated Discharge Date Admission Date: April 20, 2020 History of Present Illness Chief Complaint: The patient presents to the emergency department with approximately 2 weeks of cough, fevers and chills, shortness of breath. Today she developed nausea/vomiting and generalized body aches, which caused her to present to the ED for assessment. She also notes nocturia over the past days to weeks Primary Care Provider: Markus Castillo MD The patient is a 79-year-old female with a past medical history eluding lumbar region spinal stenosis, history of stroke with residual deficit, cerebrovascular disease, postherpetic neuralgia, right-sided temporal headache, diabetes mellitus type 2 uncontrolled, age-related cognitive decline, stented coronary artery, hypernatremia, neurogenic claudication due to lumbar spinal stenosis, closed L5 vertebral fracture, cervical radiculopathy, CAD, diabetic peripheral neuropathy, gout, hearing loss, hyperlipidemia, hypertension, IBS, mitral regurgitation, recurrent UTI, urinary urge incontinence, vitamin D deficiency, and lupus. The patient reports that her 18-year-old granddaughter came to live with her over the past 2 weeks, and serves as the most likely source of her symptoms. Abnormal laboratories: Lactate 2.9, glucose 186, troponin 0.054, COVID-19 positive. Chest x-ray showed changes of emphysema with mild chronic interstitial lung disease. CT chest angiography, PE protocol: No pulmonary embolism. No acute aortic syndrome. No acute pulmonary parenchymal abnormality. Mild subpleural interstitial thickening which appears chronic. No pleural effusion or pneumothorax. Cardiomegaly. Allergies Allergy/AdvReac Type Severity Reaction Status Date / Time dapsone Allergy Intermediate Rash Verified 01/13/20 12:10 Sulfa (Sulfonamide Allergy Mild Unknown Verified 01/13/20 12:10 Antibiotics) latex Allergy Unknown Unknown Verified 01/13/20 12:10 Cipro AdvReac Intermediate "i blew up Verified 02/11/17 15:06 like a balloon" per pt ciprofloxacin AdvReac Intermediate "i blew up Verified 01/13/20 12:10 like a balloon" per pt hydrocodone AdvReac Intermediate GI SYMPTOMS Verified 01/13/20 12:10 oxycodone AdvReac Intermediate GI SYMPTOMS Verified 01/13/20 12:10 adhesive AdvReac Unknown Unknown Verified 01/13/20 12:10 metronidazole [From Flagyl] AdvReac Unknown Unknown Verified 01/13/20 12:10 red dye AdvReac Unknown Unknown Verified 01/13/20 12:10 Home Medications Medication Instructions Recorded Confirmed Type cranberry 500 mg capsule 1,000 mg PO QAM 08/26/18 04/20/20 History coenzyme Q10 200 mg capsule 400 mg PO QAM cap 12/23/18 04/20/20 History diclofenac sodium [Voltaren] 2 g TOPICAL BID PRN 09/18/19 04/20/20 History meclizine 25 mg PO DAILY PRN 09/18/19 04/20/20 History ondansetron HCl 4 mg PO Q6H PRN 09/18/19 04/20/20 History lisinopril 40 mg PO QAM 09/19/19 04/20/20 History atorvastatin 40 mg tablet 40 mg PO HS #90 tab 11/06/19 04/20/20 Rx cholecalciferol (vitamin D3) 2,000 unit PO QAM 11/11/19 04/20/20 History [Vitamin D3] tulqrreo-yujl-PZ-calcium-mins 1 tab PO DAILY 11/11/19 04/20/20 History [Women's One Daily] BD Ultra-Fine Cris Pen Needle 32 #100 ea NS 12/24/19 01/13/20 Rx gauge x 5/32" Truetrack Test #100 ea NS 12/24/19 01/13/20 Rx mirabegron 50 mg tablet,extended 50 mg PO HS #90 tab 12/24/19 04/20/20 Rx release 24 hr tramadol 50 mg tablet 50 mg PO Q12H PRN #60 tab 12/24/19 04/20/20 Rx sennosides 8.6 mg tablet 8.6 mg PO HS PRN tab 12/26/19 04/20/20 History aspirin 81 mg PO QAM 12/28/19 04/20/20 History duloxetine 20 mg PO QAM 12/28/19 04/20/20 History insulin glargine U-300 conc 50 unit SUBCUT DAILY 12/28/19 04/20/20 History [Toujeo SoloStar U-300 Insulin] Trulicity 1.5 mg/0.5 mL 1.5 mg SUBCUT WK 90 Days #6 ml NS 12/30/19 04/20/20 Rx subcutaneous pen injector acetaminophen 500 mg tablet 1,000 mg PO HS 01/13/20 04/20/20 History docusate sodium 100 mg capsule 100 mg PO BID PRN cap 01/13/20 04/20/20 History triamcinolone acetonide 55 mcg 1 spray INTNAS DAILY PRN ml 01/13/20 04/20/20 History nasal spray aerosol metoprolol succinate 50 mg 50 mg PO QAM #90 tab 02/19/20 04/20/20 Rx tablet,extended release 24 hr albuterol sulfate 90 mcg/actuation 1 - 2 inh INHALATION Q4H PRN #3 04/07/20 04/20/20 Rx aerosol inhaler inhaler lidocaine 5 % topical patch 1 patch TRANSDERMAL Q24H #3 box 04/19/20 04/20/20 Rx Lactobacillus acidophilus 10,000 mmu cells PO DAILY 04/20/20 04/20/20 History [Probiotic] amlodipine 2.5 mg PO QAM 04/20/20 04/20/20 History biotin 10 mg PO DAILY 04/20/20 04/20/20 History gabapentin 200 mg PO AMHS 04/20/20 04/20/20 History Past Med/Surg History Medical History (Updated 04/20/20 @ 22:19 by Emmanuel Jeter) Abdominal pain Acute low back pain with bilateral sciatica Arm DVT (deep venous thromboembolism), acute Arm injuries Arm skin lesion, right C. difficile colitis Chest wall contusion Contusion, hip Dehydration Diabetes Edema leg Fall Hip pain Hx of renal calculi Injury of hip Lupus Muscular pain Spinal stenosis of lumbar region Stroke Swelling of right upper extremity UTI (urinary tract infection) Vertigo Surgical History History of lithotripsy Hx of cholecystectomy S/P cardiac catheterization Family History Mother Alzheimer disease Hypertension Brother Diabetes Father Hypertension Sister Lung cancer Other Family history non-contributory Stroke Social History Smoking Status: Never smoker Second Hand Exposure: No; Hx Alcohol Use: No Hx Substance Use: No Preferred Language: Serbian Communication Ability: Effective Visual Impairment: No Limitations Hearing Ability: Normal Sales Support Representative Required: No Beliefs That Will Affect Care: None marital status: / Current Living Situation: Family current occupational status: retired Other Information That Helps Us Care for You: No Feels Safe at Home: Yes Safety Concerns: Feels Safe At This Time Childhood Exposure to Second-Hand Smoke: No Dental Care, Regularly: No Physical Activity Frequency: Does not Exercise Seatbelt Use: always Sunscreen Use: No Assistive Devices: Oxygen - Continuous Review of Systems Review of Systems: The patient denies chest pain, palpitations, lower extremity swelling, sore throat, fevers, chills, sweats, diarrhea , constipation, abdominal pain, pelvic pain, blood in urine or stool, dysuria, urinary frequency or urgency, lightheadedness, dizziness, headache, loss of consciousness, rash, abnormal bruising or bleeding, imbalance, focal or generalized weakness, numbness or tingling in arms or legs, generalized arthralgias or myalgias, back or neck pain, or night sweats. The review of systems is otherwise negative other than for that already noted above, and at least 10 systems have been reviewed. Physical Exam Physical Exam: The patient is awake, alert and oriented 3, well developed and well nourished, normocephalic and atraumatic, lying in bed and in no acute distress. HEENT--PERRL, EOMI, mucous membranes and oropharynx dry. Neck--supple. No JVD. No bruits. Thyroid normal, trachea midline, no adenopathy. Heart--normal S1 and S2. No murmurs, rubs or gallops. Lungs--clear bilaterally, no respiratory distress, no accessory muscle use. Abdomen--normal bowel sounds and soft. Nontender. Nondistended, no hernias or masses, no organomegaly. Extremities--no cyanosis or clubbing. No edema. There are good distal pulses b/l. Dermatologic--normal skin turgor, normal color, no abnormal lymph nodes, no rash. Neurologic--cranial nerves II through XII grossly intact. Rheumatologic--normal range of motion. Psychiatric--normal affect. Results & Data Results & Data ([facility]) Vital Signs (Past 12 Hours) Vital Signs Temp Pulse Pulse Resp BP BP Pulse Ox 04/21/20 02:01 80 04/21/20 00:45 98.8 F 78 18 174/83 H 99 04/21/20 00:00 84 16 170/71 H 99 04/20/20 23:15 83 16 142/75 H 99 04/20/20 21:41 89 16 146/82 H 95 04/20/20 21:40 89 L 04/20/20 20:09 98 H 18 173/94 H 94 02/16/21 19:56 94 04/20/20 19:55 94 04/20/20 19:24 98.2 F 98 H 18 182/77 H 92 Laboratory Results Laboratory Results WBC 5.77 K/uL (4.8-10.8) 04/20/20 20:05 RBC 4.57 M/uL (4.2-5.4) 04/20/20 20:05 Hgb 13.9 g/dL (12.0-16.0) 04/20/20 20:05 Hct 40.6 % (37-47) 04/20/20 20:05 MCV 88.8 fL (80-100) 04/20/20 20:05 MCH 30.4 pg (25-34) 04/20/20 20:05 MCHC 34.2 g/dL (32-36) 04/20/20 20:05 RDW Std Deviation 43.1 fL (36.4-46.3) 04/20/20 20:05 RDW Coeff of Linda 13.3 % (11.5-14.5) 04/20/20 20:05 Plt Count 170 K/uL (130-400) 04/20/20 20:05 MPV 10.0 fL (7.4-10.4) 04/20/20 20:05 Immature Gran % (Auto) 0.3 % 04/20/20 20:05 Neut % (Auto) 56.8 % 04/20/20 20:05 Lymph % (Auto) 28.8 % 04/20/20 20:05 [place] % (Auto) 13.2 % 04/20/20 20:05 Eos % (Auto) 0.7 % 04/20/20 20:05 Baso % (Auto) 0.2 % 04/20/20 20:05 Neut # (Auto) 3.28 K/uL (1.4-6.5) 04/20/20 20:05 Lymph # (Auto) 1.66 K/uL (1.2-3.4) 04/20/20 20:05 [place] # (Auto) 0.76 K/uL (0.11-0.59) H 04/20/20 20:05 Eos # (Auto) 0.04 K/uL (0-0.5) 04/20/20 20:05 Baso # (Auto) 0.01 K/uL (0-0.2) 04/20/20 20:05 Immature Gran # (Auto) 0.02 K/uL (0.00-0.02) 04/20/20 20:05 PT 10.4 Seconds (9.0-12.0) 04/20/20 20:05 INR 1.0 (0.9-1.1) 04/20/20 20:05 APTT 24.4 Seconds (21.0-31.0) 04/20/20 20:05 PTT Ratio 0.9 04/20/20 20:05 Sodium 138 mmol/L (136-145) 04/20/20 20:05 Potassium 3.9 mmol/L (3.5-5.1) 04/20/20 20:05 Chloride 104 mmol/L (98-107) 04/20/20 20:05 Carbon Dioxide 24 mmol/L (21-32) 04/20/20 20:05 Anion Gap 10.0 (3-11) 04/20/20 20:05 BUN 19 mg/dl (7-18) H 04/20/20 20:05 Creatinine 1.02 mg/dl (0.6-1.2) 04/20/20 20:05 Est Cr Clr Drug Dosing 38.2 ml/min 04/20/20 20:05 Est GFR ( Amer) 60.6 04/20/20 20:05 Est GFR (Non-Af Amer) 52.3 04/20/20 20:05 BUN/Creatinine Ratio 18.3 (10-20) 04/20/20 20:05 Glucose 186 mg/dl (70-99) H 04/20/20 20:05 Lactate 2.7 mmol/L (0.4-2.0) H* 04/20/20 22:57 Calcium 9.7 mg/dl (8.5-10.1) 04/20/20 20:05 Magnesium 1.8 mg/dl (1.8-2.4) 04/20/20 20:05 Total Bilirubin 0.6 mg/dl (0.2-1) 04/20/20 20:05 AST 31 U/L (15-37) 04/20/20 20:05 ALT 30 U/L (12-78) 04/20/20 20:05 Alkaline Phosphatase 64 U/L (45-117) 04/20/20 20:05 Troponin I 0.054 ng/ml (0-0.045) H* 04/20/20 20:05 Total Protein 7.9 gm/dl (6.4-8.2) 04/20/20 20:05 Albumin 3.9 gm/dl (3.4-5.0) 04/20/20 20:05 Globulin 4.0 gm/dl (2.5-4.0) 04/20/20 20:05 Albumin/Globulin Ratio 1.0 (0.9-2) 04/20/20 20:05 Procalcitonin < 0.05 ng/ml (0-0.5) 04/20/20 20:05 Urine Color Yellow 04/20/20 18:53 Urine Appearance Cloudy (Clear) A 04/20/20 18:53 Urine pH 5.0 (4.5-7.5) 04/20/20 18:53 Ur Specific [place] 1.024 (1.000-1.030) 04/20/20 18:53 Urine Protein Trace (Negative) H 04/20/20 18:53 Urine Glucose (UA) Negative (Negative) 04/20/20 18:53 Urine Ketones Negative (Negative) 04/20/20 18:53 Urine Blood Negative (Negative) 04/20/20 18:53 Urine Nitrite Negative (Negative) 04/20/20 18:53 Urine Bilirubin Negative (Negative) 04/20/20 18:53 Urine Urobilinogen Negative (Negative) 04/20/20 18:53 Ur Leukocyte Esterase 1+ (Negative) H 04/20/20 18:53 Urine WBC (Auto) >30 /hpf (0-5) H 04/20/20 18:53 Urine RBC (Auto) 0-4 /hpf (0-4) 04/20/20 18:53 U Hyaline Cast (Auto) 5-10 /lpf (0-5) H 04/20/20 18:53 U Epithel Cells (Auto) >30 /lpf (0-5) H 04/20/20 18:53 Urine Bacteria (Auto) 4+ (Negative) H 04/20/20 18:53 COVID-19 Eval Order [facility]Rsv at [facility] 04/20/20 18:53 SARS-CoV-2 (PCR) POSITIVE (Negative) A* 04/20/20 18:53 Influenza Type A (PCR) Negative (Neg) 04/20/20 18:53 Influenza Type B (PCR) Negative (Neg) 04/20/20 18:53 RSV (RT-PCR) Negative (Neg) 04/20/20 18:53 Diagnostic Findings [facility], [phone] XRay Report Patient: DALY BEATTYmit Date: 04/20/20MR#: [id number]: [id number] [facility] ID:[id number]: [facility]: [facility] Zip: [place], [place] [address]Oho: 79Location: EDSex: FRoom/Bed:Att Phy:Diagnosis: FEVER, BODYACHESPri Phy: Allie RVGanga, MDService Date: 04/20/20Fa Phy:Interpreting Phy: Shady Le MDAdmit Phy: Ordering Phy: Emmanuel Jeter MD cc: ~ XR chest 1V portable HISTORY: SEPSIS COMPARISON: Chest 11/11/2019. FINDINGS: Cardiac silhouette remains mildly enlarged. There is mild chronic interstitial thickening and mild emphysema. No new focal lung consolidations to suggest pneumonia. No evidence for pulmonary edema. IMPRESSION: Emphysema and mild chronic interstitial change. No acute process within the chest. ACT 112: Negative or not required by law. Electronically signed by: Shady Le M.D. 04/20/2020 8:39 PM Dictated: 04/20/202037Transcribed: 04/20/202037 [facility] Patient: DALY BEATTY (Female) : 40 Status: ER Date: 04/20/20 21:38 Room #: History: cough sob fever Slices: 737 Priors: Tech: Raúl Giang @ [phone] Exams: CTA CHEST Contrast: IV Amt: 119 Accession Numbers: [id number] Preliminary Findings Only See Final Report For Complete Findings CTA CHEST: No pulmonary embolism. No acute aortic syndrome. No acute pulmonary parenchymal abnormality. Mild subpleural interstitial thickening which appears chronic. No pleural effusion or pneumothorax. Cardiomegaly. Radiologist: Paul Cuellar MD Study ready at 21:44 and initial results transmitted at 22:12 *This report constitutes a preliminary interpretation only. Non-acute findings felt to be unrelated to the clinical presentation may not be discussed in this report. The study will be interpreted and a final report will be generated by the local Radiologist the following shift. To reach the hospital radiology department call [phone]. If a discrepancy is found between the preliminary and final interpretations of this study, please notify us via our Client Portal at [email or web address] QA Exams.You can also fax this report with a description of the discrepancy, or include the final report, to our daytime fax number [phone].If faxing, please indicate the severity of discrepancy using one of the following categories: [ ] 1 - Agree/Informational [ ] 2 - Unlikely to Affect Management [ ] 3 - Possible Eventual Change of Management [ ] 4 - Probable Immediate Change of Management For all other patient related information, please fax us at [phone]. [id number] Code Status & VTE Plan Code Status Full code VTE Prophylaxis Plan VTE Prophylaxis will be ordered: Yes PG Care Time/CCT Total # of Minutes Spent Total Time Spent with Patient: Total time spent is greater than 50% in coordination of care (as documented) at patient's floor/unit and/or counseling patient: Coding Level of Care Code 32072 Initial Inpt Care Lvl 3 Diagnoses Elevated troponin R77.8 COVID-19 U07.1 Hypoxia R09.02 Acute UTI N39.0 Diabetes mellitus type 2, uncontrolled E11.65 CAD (coronary artery disease) I25.10 Stented coronary artery Z95.5 Hypertension I10 Hyperlipidemia E78.5 Post herpetic neuralgia B02.29 Diabetic peripheral neuropathy associated with type 2 diabetes mellitus E11.42 Cerebrovascular disease I67.9
[2020-04-21 07:07] LABS: Hematocrit (blood only) 39.2 % (37-47); Hemoglobin 13.3 g/dL (12.0-16.0); Immature Granulocytes # (auto) 0.01 K/uL (0.00-0.02); Immature Granulocytes % (auto) 0.3 %; Lymphocytes # (auto) 0.79 K/uL (1.2-3.4); Lymphocytes % (auto) 26.2 %; Mean Corpuscular Hemoglobin 30.5 pg (25-34); Mean Corpuscular Hgb Conc 33.9 g/dL (32-36); Mean Corpuscular Volume 89.9 fL (80-100); Mean Platelet Volume 10.7 fL (7.4-10.4); Monocytes # (auto) 0.12 K/uL (0.11-0.59); Neutrophils # (auto) 2.09 K/uL (1.4-6.5); Neutrophils % (auto) 69.5 %; Platelet Count 168 K/uL (130-400); RDW Coefficient of Variation 13.2 % (11.5-14.5); RDW Standard Deviation 43.3 fL (36.4-46.3); Red Blood Count 4.36 M/uL (4.2-5.4); White Blood Count 3.01 K/uL (4.8-10.8)
[2020-04-21] MEDS: ALBUTEROL HFA 8 GM INHALER INH SCH ×4 (07:10→19:30)
--- NOTE | 2020-04-21 07:14 | CT Scan Report ---
CT angio chest PE protocol CT DOSE: 472.54 mGycm HISTORY: 79 years-old Female with sob fever cough. Acute shortness of breath with cough and fever TECHNIQUE: Multiple CTA images of the chest were obtained after the intravenous administration of 119 ml Optiray 320. Coronal and sagittal MIPS were obtained from the axial data set and were submitted for review. All measurements were obtained according to NASCET criteria. A dose lowering technique w as utilized adhering to the principles of ALARA. COMPARISON: Chest radiograph 04/20/2020, chest CT 02/11/2017 FINDINGS: CTA: Moderate cardiomegaly. No pericardial effusion. Moderate coronary artery calcifications. Myocardial t hickening of the left ventricular apex may reflect prior myocardial infarction. No thoracic aortic an eurysm or dissection. Patency of the imaged great vessels. The pulmonary arterial tree is opacified t o level of the proximal subsegmental branches and demonstrates no filling defects to suggest thromboe mbolic disease. CT CHEST: Hypodense 7 mm nodule of the inferior thyroid isthmus. There are a few prominent mediastinal and kalli r lymph nodes measuring up to 7 mm which are likely physiologic. No pathologically enlarged lymph nod es. No pneumothorax, pleural effusion, or lobar airspace consolidation. Subpleural reticular and grou ndglass opacities have progressively worsened from the 02/11/2017 exam. Mild intralobular septal thic kening. There are no suspicious pulmonary nodules or masses. Central airways are patent. Tiny hiatal hernia. Indeterminate 1.8 cm soft tissue attenuating lesion of the left adrenal gland vega ears unchanged suggestive of benign etiology. Unremarkable soft tissues. Bones appear intact. Degener ative changes of the shoulders and spine without acute fracture. IMPRESSION: 1. Cardiomegaly without evidence of pulmonary emboli. 2. Subpleural predominant reticular opacities with groundglass densities has progressively worsened f rom the 2017 comparison suggestive of fibrosis. Superimposed mild pulmonary edema or interstitial pne umonitis would be difficult to exclude however is considered less likely. 3. No pleural effusion. ACT 112: Negative or not required by law. The above report was generated using voice recognition software. It may contain grammatical, syntax o r spelling errors. Electronically signed by: Niranjan Valdez M.D. 04/21/2020 7:13 AM
[2020-04-21 07:29] LABS: Estimated Average Glucose 203 mg/dl; Hemoglobin A1C 8.7 % (4.5-5.6)
[2020-04-21 07:35] LABS: Partial Thromboplastin Time 25.5 Seconds (21.0-31.0)
[2020-04-21 07:43] LABS: Albumin Level 3.5 gm/dl (3.4-5.0); BUN Creatinine Ratio 19.7 (10-20); Calcium 8.9 mg/dl (8.5-10.1); Creatinine Clr Calc Pharmacy 43.2 ml/min; Est GFR (African American) 70.5; Est GFR (Non-African American) 60.8; Magnesium 1.9 mg/dl (1.8-2.4)
[2020-04-21 07:54] LABS: Phosphorus 3.3 mg/dl (2.5-4.9); Troponin I 0.071 ng/ml (0-0.045)
[2020-04-21] MEDS: INSULIN ASPART 100 UNITS/ML 3 ML PEN SC SCH ×4 (08:30→21:04)
[2020-04-21] MEDS: AZITHROMYCIN 500 MG in DEXTROSE 5% 250 ML IV SCH (08:32)
[2020-04-21] MEDS: LIDOCAINE 5% 1 PATCH TD SCH (08:34)
[2020-04-21] MEDS: CEROVITE ADV FORMULA TAB PO SCH (08:34)
[2020-04-21] MEDS: DULoxetine HCL 20 MG CAP PO SCH (08:35)
[2020-04-21] MEDS: GABAPENTIN 100 MG CAP PO SCH ×2 (08:36→21:22)
[2020-04-21] MEDS: ASPIRIN 81 MG ECTAB PO SCH (08:36)
[2020-04-21] MEDS: amLODIPine BESYLATE 5 MG TAB PO SCH (08:36)
[2020-04-21] MEDS: CHOLECALCIFEROL 1,000 UNITS 25 MCG TAB PO SCH (08:37)
[2020-04-21] MEDS: ADVANCED PROBIOTIC 1250 MG CAPSULE PO SCH (08:37)
[2020-04-21] MEDS: METOPROLOL SUCC 50MG EXT REL TAB PO SCH (08:37)
[2020-04-21] MEDS: ENOXAPARIN INJ 30 MG/0.3 ML SYR SQ SCH ×2 (08:38→21:21)
[2020-04-21] MEDS: lisinopril 40 MG TAB PO SCH (08:38)
[2020-04-21] MEDS: ZINC SULFATE 220 MG CAPSULE PO SCH (08:42)
[2020-04-21] MEDS ORDERED: ALBUTEROL HFA 8 GM INHALER INH SCH (09:00)
[2020-04-21] MEDS ORDERED: NON-FORMULARY MEDICATION (Biotin 10 mg Tablet) PO SCH (09:00)
[2020-04-21] MEDS ORDERED: INSULIN GLARGINE 100 UNIT/ML VIAL SC SCH (09:00)
[2020-04-21] MEDS ORDERED: NON-FORMULARY MEDICATION (Coenzyme Q10 200 mg capsule) PO SCH (09:00)
[2020-04-21] MEDS ORDERED: dexAMETHasone 6 MG in SYRINGE 0 ML IV SCH (09:00)
--- NOTE | 2020-04-21 14:14 | Hospitalist Progress Note ---
Date of Service April 21, 2020 Assessment & Plan (1) COVID-19: COVID-19 respiratory infection WITHOUT hypoxia- stop dexamethasone continue Azithromycin 500 mg IV daily continue Zinc sulfate 220 mg p.o. every morning Ventolin HFA 2 puffs 4 times daily, and every 2 hours as needed (2) Elevated troponin: Elevated troponin/CAD/hypertension/stented coronary artery Troponin 0.054 upon admission, up to 0.07 twice no chest pain at all, EKG without ischemic changes represents elevated troponin no concern for demand ischemia or myopericarditis hold on cardiology consult, d/w Dr. Perez Continue amlodipine, aspirin, lisinopril and metoprolol succinate (3) Hypoxia: resolved (4) Acute UTI: History of recurrent UTI. empirically placed on ceftriaxone 1 g IV daily. no growth on culture, stop Ceftriaxone (5) Diabetes mellitus type 2, uncontrolled: Reduce Toujeo from 50 to 40 units subcu daily. Placed on Accu-Cheks before meals and at bedtime with NovoLog coverage per scale Hold Trulicity hyperglycemia today, 388, tighten Novolog coverage stop dexamethasone, this will help control tomorrow (6) CAD (coronary artery disease): See above (7) Stented coronary artery: See above (8) Hypertension: See above (9) Hyperlipidemia: Continue atorvastatin 40 mg at bedtime (10) Post herpetic neuralgia: Postherpetic neuralgia/diabetic peripheral neuropathy- Continue topical agents Voltaren gel and lidocaine patch. Continue gabapentin and tramadol (11) Diabetic peripheral neuropathy associated with type 2 diabetes mellitus: See above (12) Cerebrovascular disease: History of mild memory loss (13) Gait disturbance: feeling dizzy, has history of this will give meclizine q8, consult PT/OT Admission and Anticipated Discharge Date Admission Date: April 20, 2020 Subjective patient doing well, no dyspnea, no hypoxia, no cough says she has been sick for about two weeks now, no recent fevers main issues is trouble with balance, says she has some chronic issues with equilibrium she says her grand daughter is sick, she lives with her, has a cough and malaise reviewed chart reviewed labs, having issues with hyperglycemia today with 388 at lunch, tightened Novolog coverage will stop dexamethasone due to lack of hypoxia troponin 0.05 then 0.07 twice, spoke with Dr. Perez, no need for cardiology consult, EKG normal Review of Systems Review of Systems: All systems reviewed & are unremarkable except as noted in Subjective Constitutional: no fever, no chills, no sweats, no body aches, no fatigue and no weakness Respiratory: no cough and no dyspnea Cardiovascular: no chest pain and no edema Gastrointestinal: no abdominal pain, no nausea, no vomiting, no constipation and no diarrhea/loose stools Neurologic: + unsteadiness and + dizziness Physical Exam Constitutional: WD/WN, vitals as above Neck: trachea midline, no thyromegaly Respiratory: normal respiratory effort, lungs clear to auscultation Cardiovascular: RRR, no murmur, no edema Gastrointestinal (Abdomen): normal bowel sounds, soft, nontender, no hepatospl enomegaly Musculoskeletal: no cyanosis or clubbing, extremities motor strength 5/5 Skin: no rashes, warm and dry Neurologic: patellar DTR's 2+ bilat, sensation intact and PERRL, EOMI, accommodation nl, no face palsy, no dysarthria Psychiatric: A+Ox3, euthymic affect Lymphatic: no cervical or axillary lymphadenopathy Results & Data Results & Data ([facility]) Vital Signs (Past 12 Hours) Vital Signs Temp Pulse Pulse Resp BP Pulse Ox 04/21/20 11:54 37.1 C 76 18 149/73 H 96 04/21/20 11:29 76 18 97 04/21/20 08:00 66 04/21/20 07:58 36.7 C 74 19 161/71 H 98 04/21/20 07:10 71 18 99 04/21/20 05:21 36.9 C 80 18 171/84 H 100 Laboratory Results Laboratory Results - last 24 hr 04/20/20 04/20/20 04/20/20 18:53 18:53 18:53 WBC RBC Hgb Hct MCV MCH MCHC RDW Std Deviation RDW Coeff of Linda Plt Count MPV Immature Gran % (Auto) Neut % (Auto) Lymph % (Auto) Amite % (Auto) Eos % (Auto) Baso % (Auto) Neut # (Auto) Lymph # (Auto) Amite # (Auto) Eos # (Auto) Baso # (Auto) Immature Gran # (Auto) PT INR APTT PTT Ratio Sodium Potassium Chloride Carbon Dioxide Anion Gap BUN Creatinine Est Cr Clr Drug Dosing Est GFR ( Amer) Est GFR (Non-Af Amer) BUN/Creatinine Ratio Glucose POC Glucose Estimat Average Glucose Hemoglobin A1c Lactate Calcium Phosphorus Magnesium Total Bilirubin AST ALT Alkaline Phosphatase Troponin I Total Protein Albumin Globulin Albumin/Globulin Ratio Procalcitonin Urine Color Yellow Urine Appearance Cloudy A Urine pH 5.0 Ur Specific Leola 1.024 Urine Protein Trace H Urine Glucose (UA) Negative Urine Ketones Negative Urine Blood Negative Urine Nitrite Negative Urine Bilirubin Negative Urine Urobilinogen Negative Ur Leukocyte Esterase 1+ H Urine WBC (Auto) >30 H Urine RBC (Auto) 0-4 U Hyaline Cast (Auto) 5-10 H U Epithel Cells (Auto) >30 H Urine Bacteria (Auto) 4+ H COVID-19 Eval Order CovFluRsv at [facility] SARS-CoV-2 (PCR) POSITIVE A* Influenza Type A (PCR) Negative Influenza Type B (PCR) Negative RSV (RT-PCR) Negative 04/20/20 04/20/20 04/20/20 20:05 20:05 20:05 WBC 5.77 RBC 4.57 Hgb 13.9 Hct 40.6 MCV 88.8 MCH 30.4 MCHC 34.2 RDW Std Deviation 43.1 RDW Coeff of Linda 13.3 Plt Count 170 MPV 10.0 Immature Gran % (Auto) 0.3 Neut % (Auto) 56.8 Lymph % (Auto) 28.8 Amite % (Auto) 13.2 Eos % (Auto) 0.7 Baso % (Auto) 0.2 Neut # (Auto) 3.28 Lymph # (Auto) 1.66 Amite # (Auto) 0.76 H Eos # (Auto) 0.04 Baso # (Auto) 0.01 Immature Gran # (Auto) 0.02 PT 10.4 INR 1.0 APTT 24.4 PTT Ratio 0.9 Sodium 138 Potassium 3.9 Chloride 104 Carbon Dioxide 24 Anion Gap 10.0 BUN 19 H Creatinine 1.02 Est Cr Clr Drug Dosing 38.2 Est GFR ( Amer) 60.6 Est GFR (Non-Af Amer) 52.3 BUN/Creatinine Ratio 18.3 Glucose 186 H POC Glucose Estimat Average Glucose Hemoglobin A1c Lactate Calcium 9.7 Phosphorus Magnesium 1.8 Total Bilirubin 0.6 AST 31 ALT 30 Alkaline Phosphatase 64 Troponin I 0.054 H* Total Protein 7.9 Albumin 3.9 Globulin 4.0 Albumin/Globulin Ratio 1.0 Procalcitonin Urine Color Urine Appearance Urine pH Ur Specific Leola Urine Protein Urine Glucose (UA) Urine Ketones Urine Blood Urine Nitrite Urine Bilirubin Urine Urobilinogen Ur Leukocyte Esterase Urine WBC (Auto) Urine RBC (Auto) U Hyaline Cast (Auto) U Epithel Cells (Auto) Urine Bacteria (Auto) COVID-19 Eval Order SARS-CoV-2 (PCR) Influenza Type A (PCR) Influenza Type B (PCR) RSV (RT-PCR) 04/20/20 04/20/20 04/20/20 20:05 20:05 22:57 WBC RBC Hgb Hct MCV MCH MCHC RDW Std Deviation RDW Coeff of Linda Plt Count MPV Immature Gran % (Auto) Neut % (Auto) Lymph % (Auto) Amite % (Auto) Eos % (Auto) Baso % (Auto) Neut # (Auto) Lymph # (Auto) Amite # (Auto) Eos # (Auto) Baso # (Auto) Immature Gran # (Auto) PT INR APTT PTT Ratio Sodium Potassium Chloride Carbon Dioxide Anion Gap BUN Creatinine Est Cr Clr Drug Dosing Est GFR ( Amer) Est GFR (Non-Af Amer) BUN/Creatinine Ratio Glucose POC Glucose Estimat Average Glucose Hemoglobin A1c Lactate 2.9 H* 2.7 H* Calcium Phosphorus Magnesium Total Bilirubin AST ALT Alkaline Phosphatase Troponin I Total Protein Albumin Globulin Albumin/Globulin Ratio Procalcitonin < 0.05 Urine Color Urine Appearance Urine pH Ur Specific Leola Urine Protein Urine Glucose (UA) Urine Ketones Urine Blood Urine Nitrite Urine Bilirubin Urine Urobilinogen Ur Leukocyte Esterase Urine WBC (Auto) Urine RBC (Auto) U Hyaline Cast (Auto) U Epithel Cells (Auto) Urine Bacteria (Auto) COVID-19 Eval Order SARS-CoV-2 (PCR) Influenza Type A (PCR) Influenza Type B (PCR) RSV (RT-PCR) 04/21/20 04/21/20 04/21/20 06:52 06:52 06:52 WBC 3.01 L RBC 4.36 Hgb 13.3 Hct 39.2 MCV 89.9 MCH 30.5 MCHC 33.9 RDW Std Deviation 43.3 RDW Coeff of Linda 13.2 Plt Count 168 MPV 10.7 H Immature Gran % (Auto) 0.3 Neut % (Auto) 69.5 Lymph % (Auto) 26.2 Amite % (Auto) 4.0 Eos % (Auto) 0.0 Baso % (Auto) 0.0 Neut # (Auto) 2.09 Lymph # (Auto) 0.79 L Amite # (Auto) 0.12 Eos # (Auto) 0.00 Baso # (Auto) 0.00 Immature Gran # (Auto) 0.01 PT INR APTT 25.5 PTT Ratio 1.0 Sodium 139 Potassium 4.0 Chloride 105 Carbon Dioxide 26 Anion Gap 8.0 BUN 18 Creatinine 0.90 Est Cr Clr Drug Dosing 43.2 Est GFR ( Amer) 70.5 Est GFR (Non-Af Amer) 60.8 BUN/Creatinine Ratio 19.7 Glucose 294 H POC Glucose Estimat Average Glucose Hemoglobin A1c Lactate Calcium 8.9 Phosphorus 3.3 Magnesium 1.9 Total Bilirubin AST ALT Alkaline Phosphatase Troponin I 0.071 H* Total Protein Albumin 3.5 Globulin Albumin/Globulin Ratio Procalcitonin Urine Color Urine Appearance Urine pH Ur Specific Leola Urine Protein Urine Glucose (UA) Urine Ketones Urine Blood Urine Nitrite Urine Bilirubin Urine Urobilinogen Ur Leukocyte Esterase Urine WBC (Auto) Urine RBC (Auto) U Hyaline Cast (Auto) U Epithel Cells (Auto) Urine Bacteria (Auto) COVID-19 Eval Order SARS-CoV-2 (PCR) Influenza Type A (PCR) Influenza Type B (PCR) RSV (RT-PCR) 04/21/20 04/21/20 04/21/20 06:52 07:56 11:23 WBC RBC Hgb Hct MCV MCH MCHC RDW Std Deviation RDW Coeff of Linda Plt Count MPV Immature Gran % (Auto) Neut % (Auto) Lymph % (Auto) Amite % (Auto) Eos % (Auto) Baso % (Auto) Neut # (Auto) Lymph # (Auto) Amite # (Auto) Eos # (Auto) Baso # (Auto) Immature Gran # (Auto) PT INR APTT PTT Ratio Sodium Potassium Chloride Carbon Dioxide Anion Gap BUN Creatinine Est Cr Clr Drug Dosing Est GFR ( Amer) Est GFR (Non-Af Amer) BUN/Creatinine Ratio Glucose POC Glucose 292 H 378 H* Estimat Average Glucose 203 Hemoglobin A1c 8.7 H Lactate Calcium Phosphorus Magnesium Total Bilirubin AST ALT Alkaline Phosphatase Troponin I Total Protein Albumin Globulin Albumin/Globulin Ratio Procalcitonin Urine Color Urine Appearance Urine pH Ur Specific Leola Urine Protein Urine Glucose (UA) Urine Ketones Urine Blood Urine Nitrite Urine Bilirubin Urine Urobilinogen Ur Leukocyte Esterase Urine WBC (Auto) Urine RBC (Auto) U Hyaline Cast (Auto) U Epithel Cells (Auto) Urine Bacteria (Auto) COVID-19 Eval Order SARS-CoV-2 (PCR) Influenza Type A (PCR) Influenza Type B (PCR) RSV (RT-PCR) 04/21/20 04/21/20 11:25 12:46 WBC RBC Hgb Hct MCV MCH MCHC RDW Std Deviation RDW Coeff of Linda Plt Count MPV Immature Gran % (Auto) Neut % (Auto) Lymph % (Auto) Amite % (Auto) Eos % (Auto) Baso % (Auto) Neut # (Auto) Lymph # (Auto) Amite # (Auto) Eos # (Auto) Baso # (Auto) Immature Gran # (Auto) PT INR APTT PTT Ratio Sodium Potassium Chloride Carbon Dioxide Anion Gap BUN Creatinine Est Cr Clr Drug Dosing Est GFR ( Amer) Est GFR (Non-Af Amer) BUN/Creatinine Ratio Glucose POC Glucose 388 H* Estimat Average Glucose Hemoglobin A1c Lactate Calcium Phosphorus Magnesium Total Bilirubin AST ALT Alkaline Phosphatase Troponin I 0.072 H* Total Protein Albumin Globulin Albumin/Globulin Ratio Procalcitonin Urine Color Urine Appearance Urine pH Ur Specific Leola Urine Protein Urine Glucose (UA) Urine Ketones Urine Blood Urine Nitrite Urine Bilirubin Urine Urobilinogen Ur Leukocyte Esterase Urine WBC (Auto) Urine RBC (Auto) U Hyaline Cast (Auto) U Epithel Cells (Auto) Urine Bacteria (Auto) COVID-19 Eval Order SARS-CoV-2 (PCR) Influenza Type A (PCR) Influenza Type B (PCR) RSV (RT-PCR) PG Care Time/CCT Total # of Minutes Spent Total Time Spent with Patient: Total time spent is greater than 50% in coordi nation of care (as documented) at patient's floor/unit and/or counseling patient: Coding Level of Care Code 02447 Subseq Hosp Care Lvl 3 Diagnoses COVID-19 U07.1 Elevated troponin R77.8 Hypoxia R09.02 Acute UTI N39.0 Diabetes mellitus type 2, uncontrolled E11.65 CAD (coronary artery disease) I25.10 Stented coronary artery Z95.5 Hypertension I10 Hyperlipidemia E78.5 Post herpetic neuralgia B02.29 Diabetic peripheral neuropathy associated with type 2 diabetes mellitus E11.42 Cerebrovascular disease I67.9 Gait disturbance R26.9
[2020-04-21] MEDS: MECLIZINE HCL 25 MG TAB PO SCH ×2 (16:48→23:18)
[2020-04-21] MEDS ORDERED: cefTRIAXone SODIUM 1,000 MG in DEXTROSE 5% 50 ML IV SCH (21:00)
[2020-04-21] MEDS: MIRABEGRON ER 25 MG TAB PO SCH (21:14)
[2020-04-21] MEDS: ATORVASTATIN 40 MG TAB PO SCH (21:22)
[2020-04-21] MEDS: traMADol HCL 50 MG TABLET PO PRN (23:25)
[2020-04-22 05:36] LABS: Hematocrit (blood only) 38.6 % (37-47); Hemoglobin 13.2 g/dL (12.0-16.0); Immature Granulocytes # (auto) 0.01 K/uL (0.00-0.02); Immature Granulocytes % (auto) 0.1 %; Lymphocytes # (auto) 1.32 K/uL (1.2-3.4); Lymphocytes % (auto) 18.5 %; Mean Corpuscular Hemoglobin 30.2 pg (25-34); Mean Corpuscular Hgb Conc 34.2 g/dL (32-36); Mean Corpuscular Volume 88.3 fL (80-100); Mean Platelet Volume 10.2 fL (7.4-10.4); Monocytes # (auto) 0.89 K/uL (0.11-0.59); Monocytes % (auto) 12.5 %; Neutrophils % (auto) 68.9 %; Partial Thromboplastin Time 27.3 Seconds (21.0-31.0); Platelet Count 182 K/uL (130-400); RDW Coefficient of Variation 13.1 % (11.5-14.5); Red Blood Count 4.37 M/uL (4.2-5.4); White Blood Count 7.12 K/uL (4.8-10.8)
--- NOTE | 2020-04-22 05:51 | Electrocardiogram Report ---
Test Reason : Blood Pressure : / mmHG Vent. Rate : 093 BPM Atrial Rate : 093 BPM P-R Int : 180 ms QRS Dur : 092 ms QT Int : 360 ms P-R-T Axes : 016 -12 055 degrees QTc Int : 447 ms Poor data quality, interpretation may be adversely affected Normal sinus rhythm Normal ECG When compared with ECG of 11-NOV-2019 01:55, AL interval has decreased Confirmed by Babak Stallworth ([id number]) on 04/22/2020 5:51:11 AM Referred By: REFERRED SELF Confirmed By:Babak Stallworth
[2020-04-22 05:56] LABS: Albumin Level 3.5 gm/dl (3.4-5.0); BUN Creatinine Ratio 23.8 (10-20); Calcium 9.7 mg/dl (8.5-10.1); Est GFR (African American) 50.8; Est GFR (Non-African American) 43.8; Magnesium 2.1 mg/dl (1.8-2.4)
[2020-04-22 06:07] LABS: Phosphorus 3.7 mg/dl (2.5-4.9); Troponin I 0.072 ng/ml (0-0.045)
[2020-04-22] MEDS: ALBUTEROL HFA 8 GM INHALER INH SCH (07:34)
[2020-04-22] MEDS: GABAPENTIN 100 MG CAP PO SCH ×2 (08:07→20:59)
[2020-04-22] MEDS: METOPROLOL SUCC 50MG EXT REL TAB PO SCH (08:07)
[2020-04-22] MEDS: CHOLECALCIFEROL 1,000 UNITS 25 MCG TAB PO SCH (08:08)
[2020-04-22] MEDS: lisinopril 40 MG TAB PO SCH (08:08)
[2020-04-22] MEDS: ASPIRIN 81 MG ECTAB PO SCH (08:08)
[2020-04-22] MEDS: amLODIPine BESYLATE 5 MG TAB PO SCH (08:08)
[2020-04-22] MEDS: ZINC SULFATE 220 MG CAPSULE PO SCH (08:09)
[2020-04-22] MEDS: DULoxetine HCL 20 MG CAP PO SCH (08:09)
[2020-04-22] MEDS: CEROVITE ADV FORMULA TAB PO SCH (08:10)
[2020-04-22] MEDS: ADVANCED PROBIOTIC 1250 MG CAPSULE PO SCH (08:10)
[2020-04-22] MEDS: LIDOCAINE 5% 1 PATCH TD SCH (08:20)
[2020-04-22] MEDS: AZITHROMYCIN 500 MG in DEXTROSE 5% 250 ML IV SCH (08:20)
[2020-04-22] MEDS: ENOXAPARIN INJ 30 MG/0.3 ML SYR SQ SCH ×2 (08:21→21:00)
[2020-04-22] MEDS: MECLIZINE HCL 25 MG TAB PO SCH ×3 (08:28→23:18)
[2020-04-22] MEDS: INSULIN ASPART 100 UNITS/ML 3 ML PEN SC SCH ×4 (08:30→22:08)
[2020-04-22] MEDS ORDERED: dexAMETHasone 6 MG in SYRINGE 0 ML IV SCH (09:00)
[2020-04-22] MEDS: INSULIN GLARGINE 100 UNIT/ML VIAL SC SCH (09:02)
[2020-04-22] MEDS: traMADol HCL 50 MG TABLET PO PRN ×2 (09:20→21:00)
[2020-04-22] MEDS: INSULIN HUMAN NPH SC SCH (09:34)
[2020-04-22] MEDS ORDERED: ALBUTEROL HFA 8 GM INHALER INH PRN (10:23)
--- NOTE | 2020-04-22 11:16 | Hospitalist Progress Note ---
Date of Service April 22, 2020 Assessment & Plan (1) COVID-19: COVID-19 respiratory infection WITHOUT hypoxia- saturations 91% this morning, gave her another dose of dexamethasone sats were higher, 95% this afternoon, again, hold on further steroids continue Azithromycin 500 mg IV daily, can change to PO on discharge continue Zinc sulfate 220 mg p.o. every morning Ventolin HFA 2 puffs 4 times daily, and every 2 hours as needed likely home tomorrow (2) Elevated troponin: Elevated troponin/CAD/hypertension/stented coronary artery Troponin 0.054 upon admission, up to 0.07 twice no chest pain at all, EKG without ischemic changes represents elevated troponin no concern for demand ischemia or myopericarditis hold on cardiology consult, d/w Dr. Perez Continue amlodipine, aspirin, lisinopril and metoprolol succinate (3) Hypoxia: resolved, lowest her saturation reached was 91% (4) Acute UTI: History of recurrent UTI. empirically placed on ceftriaxone 1 g IV daily. no growth on culture, stop Ceftriaxone (5) Diabetes mellitus type 2, uncontrolled: Reduce Toujeo from 50 to 40 units subcu daily. Placed on Accu-Cheks before meals and at bedtime with NovoLog coverage per scale Hold Trulicity hyperglycemia today, >400, tighten Novolog coverage gave NPH 20 units this morning stop dexamethasone, this will help control tomorrow (6) CAD (coronary artery disease): See above (7) Stented coronary artery: See above (8) Hypertension: See above (9) Hyperlipidemia: Continue atorvastatin 40 mg at bedtime (10) Post herpetic neuralgia: Postherpetic neuralgia/diabetic peripheral neuropathy- Continue topical agents Voltaren gel and lidocaine patch. Continue gabapentin and tramadol (11) Diabetic peripheral neuropathy associated with type 2 diabetes mellitus: See above (12) Cerebrovascular disease: History of mild memory loss (13) Gait disturbance: feeling dizzy, has history of this will give meclizine q8, consult PT/OT she did okay with therapy, balance improves the longer she is walking Admission and Anticipated Discharge Date Admission Date: April 20, 2020 Subjective patient breathing well, no cough she got up with PT today, had some dizziness and unsteadiness at first, balance improved the more she walked she used rolling walker, says she has one at home she asked about discharge, told her it was still a day too early, probably okay to go home tomorrow oxygen saturations were registered at 91% this morning, but are 95% today while upright and more away got dexamethasone this morning for the saturation of 91%, NPH 20 units, sugars still markedly elevated, > 400 this afternoon no further steroids eating well, making urine, moving bowels no fever/chills, no vomiting/diarrhea Review of Systems Review of Systems: All systems reviewed & are unremarkable except as noted in Subjective Neurologic: + unsteadiness and + dizziness Physical Exam Constitutional: WD/WN, vitals as above Neck: trachea midline, no thyromegaly Respiratory: normal respiratory effort, lungs clear to auscultation Cardiovascular: RRR, no murmur, no edema Gastrointestinal (Abdomen): normal bowel sounds, soft, nontender, no hepatosplenomegaly Musculoskeletal: no cyanosis or clubbing, extremities motor strength 5/5 Skin: no rashes, warm and dry Neurologic: patellar DTR's 2+ bilat, sensation intact and PERRL, EOMI, accommodation nl, no face palsy, no dysarthria Psychiatric: A+Ox3, euthymic affect Lymphatic: no cervical or axillary lymphadenopathy Results & Data Results & Data ([facility]) Vital Signs (Past 12 Hours) Vital Signs Temp Pulse Pulse Resp BP Pulse Ox 04/22/20 08:00 71 04/22/20 07:36 76 18 91 04/22/20 06:39 36.6 C 72 18 156/78 H 91 04/22/20 04:29 36.6 C 72 20 129/76 94 04/21/20 23:55 73 04/21/20 23:22 36.6 C 73 18 124/71 93 Laboratory Results Laboratory Results - last 24 hr 04/21/20 04/21/20 04/21/20 11:23 11:25 12:46 WBC RBC Hgb Hct MCV MCH MCHC RDW Std Deviation RDW Coeff of Linda Plt Count MPV Immature Gran % (Auto) Neut % (Auto) Lymph % (Auto) [place] % (Auto) Eos % (Auto) Baso % (Auto) Neut # (Auto) Lymph # (Auto) [place] # (Auto) Eos # (Auto) Baso # (Auto) Immature Gran # (Auto) APTT PTT Ratio Sodium Potassium Chloride Carbon Dioxide Anion Gap BUN Creatinine Est Cr Clr Drug Dosing Est GFR ( Amer) Est GFR (Non-Af Amer) BUN/Creatinine Ratio Glucose POC Glucose 378 H* 388 H* Calcium Phosphorus Magnesium Troponin I 0.072 H* Albumin 04/21/20 04/21/20 04/21/20 16:44 20:39 20:40 WBC RBC Hgb Hct MCV MCH MCHC RDW Std Deviation RDW Coeff of Linda Plt Count MPV Immature Gran % (Auto) Neut % (Auto) Lymph % (Auto) [place] % (Auto) Eos % (Auto) Baso % (Auto) Neut # (Auto) Lymph # (Auto) [place] # (Auto) Eos # (Auto) Baso # (Auto) Immature Gran # (Auto) APTT PTT Ratio Sodium Potassium Chloride Carbon Dioxide Anion Gap BUN Creatinine Est Cr Clr Drug Dosing Est GFR ( Amer) Est GFR (Non-Af Amer) BUN/Creatinine Ratio Glucose POC Glucose 244 H 302 H* 311 H* Calcium Phosphorus Magnesium Troponin I Albumin 04/21/20 04/22/20 04/22/20 20:48 04:28 04:49 WBC RBC Hgb Hct MCV MCH MCHC RDW Std Deviation RDW Coeff of Linda Plt Count MPV Immature Gran % (Auto) Neut % (Auto) Lymph % (Auto) [place] % (Auto) Eos % (Auto) Baso % (Auto) Neut # (Auto) Lymph # (Auto) [place] # (Auto) Eos # (Auto) Baso # (Auto) Immature Gran # (Auto) APTT PTT Ratio Sodium 140 Potassium 4.0 Chloride 104 Carbon Dioxide 29 Anion Gap 7.0 BUN 28 H D Creatinine 1.18 Est Cr Clr Drug Dosing 33.0 Est GFR ( Amer) 50.8 Est GFR (Non-Af Amer) 43.8 BUN/Creatinine Ratio 23.8 H Glucose 137 H POC Glucose 135 H Calcium 9.7 Phosphorus 3.7 Magnesium 2.1 Troponin I 0.077 H* 0.072 H* Albumin 3.5 04/22/20 04/22/20 04/22/20 04:49 04:49 08:19 WBC 7.12 RBC 4.37 Hgb 13.2 Hct 38.6 MCV 88.3 MCH 30.2 MCHC 34.2 RDW Std Deviation 42.0 RDW Coeff of Linda 13.1 Plt Count 182 MPV 10.2 Immature Gran % (Auto) 0.1 Neut % (Auto) 68.9 Lymph % (Auto) 18.5 [place] % (Auto) 12.5 Eos % (Auto) 0.0 Baso % (Auto) 0.0 Neut # (Auto) 4.90 Lymph # (Auto) 1.32 [place] # (Auto) 0.89 H Eos # (Auto) 0.00 Baso # (Auto) 0.00 Immature Gran # (Auto) 0.01 APTT 27.3 PTT Ratio 1.0 Sodium Potassium Chloride Carbon Dioxide Anion Gap BUN Creatinine Est Cr Clr Drug Dosing Est GFR ( Amer) Est GFR (Non-Af Amer) BUN/Creatinine Ratio Glucose POC Glucose 233 H Calcium Phosphorus Magnesium Troponin I Albumin Medications Administered Current Inpatient Medications Acetaminophen (Acetaminophen 325 Mg Tab) 650 mg PO Q4H PRN PRN Reason: Pain or Fever Stop: 05/21/20 00:38 Albuterol (Albut/Ipratrop 3mg/0.5mg Neb 3 Ml Vial) 3 ml NEB Q2H PRN PRN Reason: dyspnea Stop: 05/20/20 23:26 Albuterol (Albuterol Hfa 8 Gm Inhaler) 2 puffs INH QIDR PRN PRN Reason: Shortness Of Breath Or Wheezing Stop: 05/21/20 06:59 Amlodipine Besylate (Amlodipine Besylate 5 Mg Tab) [facility] Stop: 05/21/20 08:59 Last Admin: 04/22/20 08:08 Dose: 2.5 mg Documented by: Aspirin (Aspirin 81 Mg Ectab) [facility] Stop: 05/21/20 08:59 Last Admin: 04/22/20 08:08 Dose: 81 mg Documented by: Atorvastatin Calcium (Atorvastatin 40 Mg Tab) 40 mg PO [facility] Stop: 05/21/20 20:59 Last Admin: 04/21/20 21:22 Dose: 40 mg Documented by: Dextrose (Dextrose 50% 50 Ml Syringe) 25 - 50 ml IV UD PRN; Protocol PRN Reason: Hypoglycemia Protocol Stop: 05/21/20 00:38 Diclofenac Sodium (Diclofenac Sod 1% Gel 100 Gm Tube) 2 gm EXT BID PRN PRN Reason: Pain Stop: 05/21/20 00:38 Docusate Sodium (Docusate Sodium 100 Mg Cap) 100 mg PO BID PRN PRN Reason: Constipation Stop: 05/21/20 00:38 Duloxetine HCl (Duloxetine Hcl 20 Mg Cap) 20 mg PO QAM [facility] Stop: 05/21/20 08:59 Last Admin: 04/22/20 08:09 Dose: 20 mg Documented by: Enoxaparin Sodium (Enoxaparin Inj 30 Mg/0.3 Ml Syr) 30 mg SQ Q12H [facility] Stop: 05/21/20 08:59 Last Admin: 04/22/20 08:21 Dose: 30 mg Documented by: Gabapentin (Gabapentin 100 Mg Cap) 200 mg PO AMHS [facility] Stop: 05/21/20 08:59 Last Admin: 04/22/20 08:07 Dose: 200 mg Documented by: Glucagon (Glucagon For Inj 1 Mg Vial) 1 mg SQ UD PRN; Protocol PRN Reason: Hypoglycemia Protocol Stop: 05/21/20 00:38 Glucose (Glucose 10 Tabs/Tube) 4 - 8 tabs PO UD PRN; Protocol PRN Reason: Hypoglycemia Protocol Stop: 05/21/20 00:38 Glucose (Glucose 40% Gel 15 Gm Tube) 15 - 30 gm PO UD PRN; Protocol PRN Reason: Hypoglycemia Protocol Stop: 05/21/20 00:38 Azithromycin 500 mg/ Dextrose 255 mls @ 125 mls/hr IV Q24H [facility] Stop: 04/28/20 08:59 Last Infusion: 04/22/20 11:07 Dose: Infused Documented by: Dexamethasone 6 mg/ Syringe 1.5 mls @ 1 mls/min IV [facility] Stop: 05/22/20 08:59 Last Admin: 04/22/20 09:19 Dose: 1 mls/min Documented by: Insulin Aspart (Insulin Aspart 100 Units/Ml 3 Ml Pen) 0 units SC ACHS [facility] Stop: 05/21/20 07:29 Last Admin: 04/22/20 08:30 Dose: 18 units Documented by: Insulin Glargine (Insulin Glargine 100 Unit/Ml Vial) 50 units SC DAILY [facility] Stop: 05/22/20 08:59 Last Admin: 04/22/20 09:02 Dose: 50 units Documented by: Insulin Human NPH (Insulin Human Nph) 20 units SC [facility] Stop: 05/22/20 08:59 Last Admin: 04/22/20 09:34 Dose: 20 units Documented by: Lactobacillus Acidoph/Casei/Rhamnos (Advanced Probiotic 1250 Mg Capsule) 2 cap PO DAILY [facility] Stop: 05/21/20 08:59 Last Admin: 04/22/20 08:10 Dose: Not Given Documented by: Lidocaine (Lidocaine 5% 1 Patch) 1 patch TD Q24H [facility] Stop: 05/21/20 08:59 Last Admin: 04/22/20 08:20 Dose: 1 patch Documented by: Lisinopril (Lisinopril 40 Mg Tab) 40 mg PO QAM [facility] Stop: 05/21/20 08:59 Last Admin: 04/22/20 08:08 Dose: 40 mg Documented by: Meclizine HCl (Meclizine Hcl 25 Mg Tab) 25 mg PO Q8H [facility] Stop: 05/21/20 15:59 Last Admin: 04/22/20 08:28 Dose: 25 mg Documented by: Metoprolol Succinate (Metoprolol Succ 50mg Ext Rel Tab) 50 mg PO QAM [facility] Stop: 05/21/20 08:59 Last Admin: 04/22/20 08:07 Dose: 50 mg Documented by: Mirabegron (Mirabegron Er 25 Mg Tab) 50 mg PO HS [facility] Stop: 05/21/20 20:59 Last Admin: 04/21/20 21:14 Dose: 50 mg Documented by: Miscellaneous (Carbohydrates For Hypoglycemia ) 15 - 30 gm PO UD PRN PRN Reason: Hypoglycemia Protocol Stop: 05/21/20 00:38 Miscellaneous (Remove Lidoderm Patch) 1 ea N/A DAILY@2100 [facility] Stop: 05/21/20 20:59 Last Admin: 04/21/20 21:13 Dose: Not Given Documented by: Multivitamins/Minerals (Cerovite Adv Formula Tab) 1 tab PO DAILY [facility] Stop: 05/21/20 08:59 Last Admin: 04/22/20 08:10 Dose: Not Given Documented by: Ondansetron HCl (Ondansetron Inj 2 Mg/Ml 2 Ml Vial) 4 mg IV Q6H PRN PRN Reason: Nausea Stop: 05/21/20 00:38 Last Admin: 04/21/20 01:15 Dose: 4 mg Documented by: Sennosides (Senna 8.6 Mg Tab) 8.6 mg PO HS PRN PRN Reason: constipation Stop: 05/21/20 00:38 Tramadol HCl (Tramadol Hcl 50 Mg Tablet) 50 mg PO Q6H PRN PRN Reason: Moderate Pain Stop: 05/21/20 00:38 Last Admin: 04/22/20 09:20 Dose: 50 mg Documented by: Vitamin D (Cholecalciferol 1,000 Units 25 Mcg Tab) 2,000 units PO QAM [facility] Stop: 05/21/20 08:59 Last Admin: 04/22/20 08:08 Dose: 2,000 units Documented by: Zinc Sulfate (Zinc Sulfate 220 Mg Capsule) 220 mg PO QAM [facility] Stop: 05/21/20 08:59 Last Admin: 04/22/20 08:09 Dose: 220 mg Documented by: PG Care Time/CCT Total # of Minutes Spent Total Time Spent with Patient: Total time spent is greater than 50% in coordination of care (as documented) at patient's floor/unit and/or counseling patient: Coding Level of Care Code 39466 Subseq Hosp Care Lvl 2 Diagnoses COVID-19 U07.1 Elevated troponin R77.8 Hypoxia R09.02 Acute UTI N39.0 Diabetes mellitus type 2, uncontrolled E11.65 CAD (coronary artery disease) I25.10 Stented coronary artery Z95.5 Hypertension I10 Hyperlipidemia E78.5 Post herpetic neuralgia B02.29 Diabetic peripheral neuropathy associated with type 2 diabetes mellitus E11.42 Cerebrovascular disease I67.9 Gait disturbance R26.9
[2020-04-22] MEDS: MIRABEGRON ER 25 MG TAB PO SCH (21:00)
[2020-04-22] MEDS: ATORVASTATIN 40 MG TAB PO SCH (21:00)
[2020-04-23 06:11] LABS: Hematocrit (blood only) 38.5 % (37-47); Hemoglobin 12.8 g/dL (12.0-16.0); Immature Granulocytes # (auto) 0.02 K/uL (0.00-0.02); Immature Granulocytes % (auto) 0.2 %; Lymphocytes # (auto) 1.45 K/uL (1.2-3.4); Lymphocytes % (auto) 15.8 %; Mean Corpuscular Hemoglobin 29.8 pg (25-34); Mean Corpuscular Hgb Conc 33.2 g/dL (32-36); Mean Corpuscular Volume 89.7 fL (80-100); Mean Platelet Volume 10.3 fL (7.4-10.4); Monocytes # (auto) 0.89 K/uL (0.11-0.59); Monocytes % (auto) 9.7 %; Neutrophils # (auto) 6.84 K/uL (1.4-6.5); Neutrophils % (auto) 74.3 %; Platelet Count 202 K/uL (130-400); RDW Coefficient of Variation 13.3 % (11.5-14.5); RDW Standard Deviation 43.6 fL (36.4-46.3); Red Blood Count 4.29 M/uL (4.2-5.4)
[2020-04-23 06:21] LABS: Partial Thromboplastin Time 26.5 Seconds (21.0-31.0)
[2020-04-23 06:40] LABS: Albumin Level 3.3 gm/dl (3.4-5.0); BUN Creatinine Ratio 30.6 (10-20); Calcium 9.1 mg/dl (8.5-10.1); Creatinine Clr Calc Pharmacy 38.3 ml/min; Est GFR (African American) 59.9; Est GFR (Non-African American) 51.7; Magnesium 2.1 mg/dl (1.8-2.4); Potassium 4.1 mmol/L (3.5-5.1)
[2020-04-23 06:53] LABS: Phosphorus 3.5 mg/dl (2.5-4.9); Troponin I 0.073 ng/ml (0-0.045)
[2020-04-23] MEDS: INSULIN HUMAN NPH SC SCH (09:06)
[2020-04-23] MEDS: ASPIRIN 81 MG ECTAB PO SCH (09:22)
[2020-04-23] MEDS: amLODIPine BESYLATE 5 MG TAB PO SCH (09:22)
[2020-04-23] MEDS: ADVANCED PROBIOTIC 1250 MG CAPSULE PO SCH (09:24)
[2020-04-23] MEDS: CEROVITE ADV FORMULA TAB PO SCH (09:24)
[2020-04-23] MEDS: MECLIZINE HCL 25 MG TAB PO SCH ×2 (09:24→16:34)
[2020-04-23] MEDS: METOPROLOL SUCC 50MG EXT REL TAB PO SCH (09:25)
[2020-04-23] MEDS: DULoxetine HCL 20 MG CAP PO SCH (09:25)
[2020-04-23] MEDS: ZINC SULFATE 220 MG CAPSULE PO SCH (09:25)
[2020-04-23] MEDS: lisinopril 40 MG TAB PO SCH (09:25)
[2020-04-23] MEDS: CHOLECALCIFEROL 1,000 UNITS 25 MCG TAB PO SCH (09:25)
[2020-04-23] MEDS: LIDOCAINE 5% 1 PATCH TD SCH (09:26)
[2020-04-23] MEDS: GABAPENTIN 100 MG CAP PO SCH ×2 (09:26→20:59)
[2020-04-23] MEDS: ENOXAPARIN INJ 30 MG/0.3 ML SYR SQ SCH ×2 (09:26→20:59)
[2020-04-23] MEDS: AZITHROMYCIN 500 MG in DEXTROSE 5% 250 ML IV SCH (09:28)
[2020-04-23] MEDS: INSULIN ASPART 100 UNITS/ML 3 ML PEN SC SCH ×4 (10:00→20:35)
[2020-04-23] MEDS: INSULIN GLARGINE 100 UNIT/ML VIAL SC SCH (10:00)
[2020-04-23] MEDS ORDERED: SODIUM CHLORIDE 0.9% 1000ML 500 ML IV ONE (16:43)
[2020-04-23] MEDS: ATORVASTATIN 40 MG TAB PO SCH (20:59)
[2020-04-23] MEDS: MIRABEGRON ER 25 MG TAB PO SCH (20:59)
[2020-04-23] MEDS: traMADol HCL 50 MG TABLET PO PRN (21:07)
--- NOTE | 2020-04-23 21:39 | Hospitalist Progress Note ---
Date of Service April 23, 2020 Assessment & Plan (1) COVID-19: COVID-19 respiratory infection WITHOUT hypoxia- saturations > 95% today stop dexamethasone, stop Zithromax continue Zinc sulfate 220 mg p.o. every morning Ventolin HFA 2 puffs 4 times daily, and every 2 hours as needed try for d/c tomorrow (2) Elevated troponin: Elevated troponin/CAD/hypertension/stented coronary artery Troponin 0.054 upon admission, up to 0.07 several times, no further rise some mild chest pain today at rest, EKG without ischemic changes no concern for demand ischemia or myopericarditis hold on cardiology consult, d/w Dr. Perez Continue amlodipine, aspirin, lisinopril and metoprolol succinate (3) Hypoxia: resolved, lowest her saturation reached was 95% today (4) Acute UTI: History of recurrent UTI. empirically placed on ceftriaxone 1 g IV daily. no growth on culture, stop Ceftriaxone (5) Diabetes mellitus type 2, uncontrolled: Reduce Toujeo from 50 to 40 units subcu daily. Placed on Accu-Cheks before meals and at bedtime with NovoLog coverage per scale Hold Trulicity sugars labile today, even off the dexamethasone was 200 then 430 at lunch, over corrected with Novolog, down to 50s and felt weak will loosen correction factor to 20, carb ratio to 15 (6) CAD (coronary artery disease): See above (7) Stented coronary artery: See above (8) Hypertension: See above (9) Hyperlipidemia: Continue atorvastatin 40 mg at bedtime (10) Post herpetic neuralgia: Postherpetic neuralgia/diabetic peripheral neuropathy- Continue topical agents Voltaren gel and lidocaine patch. Continue gabapentin and tramadol (11) Diabetic peripheral neuropathy associated with type 2 diabetes mellitus: See above (12) Cerebrovascular disease: History of mild memory loss (13) Gait disturbance: feeling dizzy, has history of this will give meclizine q8, consult PT/OT she did okay with therapy, balance improves the longer she is walking (14) Chest pain: Admission and Anticipated Discharge Date Admission Date: April 20, 2020 Subjective patient not feeling well today, having diarrhea several times, light headed, dizzy had some chest pain - EKG normal and trop 0.07 which is consistent with prior levels no dyspnea, no cough, no hypoxemia sugars very labile, up to 430 this afternoon despite no dexamethasone over corrected, sugars low at 57 this evening, adjusted her correction factor and carb ratio not well enough to go home, try to discharge tomorrow Review of Systems Review of Systems: All systems reviewed & are unremarkable except as noted in Subjective Constitutional: + fatigue and + weakness; no fever Respiratory: no cough and no dyspnea Cardiovascular: + chest pain and + lightheadedness; no palpitations, no syncope and no edema Gastrointestinal: + diarrhea/loose stools; no abdominal pain, no nausea, no vomiting and no constipation Neurologic: + unsteadiness and + dizziness Physical Exam Constitutional: WD/WN, vitals as above Neck: trachea midline, no thyromegaly Respiratory: normal respiratory effort, lungs clear to auscultation Cardiovascular: RRR, no murmur, no edema Gastrointestinal (Abdomen): normal bowel sounds, soft, nontender, no hepatosplenomegaly Musculoskeletal: no cyanosis or clubbing, extremities motor strength 5/5 Skin: no rashes, warm and dry Neurologic: patellar DTR's 2+ bilat, sensation intact and PERRL, EOMI, accommodation nl, no face palsy, no dysarthria Psychiatric: A+Ox3, euthymic affect Lymphatic: no cervical or axillary lymphadenopathy Results & Data Results & Data ([facility]) Vital Signs (Past 12 Hours) Vital Signs Temp Pulse Pulse Resp BP Pulse Ox 04/23/20 19:00 36.8 C 72 20 139/82 98 04/23/20 15:58 67 04/23/20 13:41 36.5 C 60 19 149/75 H 99 Laboratory Results Laboratory Results - last 24 hr 04/22/20 04/22/20 04/23/20 21:13 23:19 05:27 WBC RBC Hgb Hct MCV MCH MCHC RDW Std Deviation RDW Coeff of Linda Plt Count MPV Immature Gran % (Auto) Neut % (Auto) Lymph % (Auto) [place] % (Auto) Eos % (Auto) Baso % (Auto) Neut # (Auto) Lymph # (Auto) [place] # (Auto) Eos # (Auto) Baso # (Auto) Immature Gran # (Auto) APTT 26.5 PTT Ratio 1.0 Sodium Potassium Chloride Carbon Dioxide Anion Gap BUN Creatinine Est Cr Clr Drug Dosing Est GFR ( Amer) Est GFR (Non-Af Amer) BUN/Creatinine Ratio Glucose POC Glucose 105 H Calcium Phosphorus Magnesium Troponin I 0.075 H* Albumin 04/23/20 04/23/20 04/23/20 05:28 05:28 08:00 WBC 9.20 RBC 4.29 Hgb 12.8 Hct 38.5 MCV 89.7 MCH 29.8 MCHC 33.2 RDW Std Deviation 43.6 RDW Coeff of Linda 13.3 Plt Count 202 MPV 10.3 Immature Gran % (Auto) 0.2 Neut % (Auto) 74.3 Lymph % (Auto) 15.8 [place] % (Auto) 9.7 Eos % (Auto) 0.0 Baso % (Auto) 0.0 Neut # (Auto) 6.84 H Lymph # (Auto) 1.45 [place] # (Auto) 0.89 H Eos # (Auto) 0.00 Baso # (Auto) 0.00 Immature Gran # (Auto) 0.02 APTT PTT Ratio Sodium 141 Potassium 4.1 Chloride 107 Carbon Dioxide 26 Anion Gap 8.0 BUN 31 H Creatinine 1.03 Est Cr Clr Drug Dosing 38.3 Est GFR ( Amer) 59.9 Est GFR (Non-Af Amer) 51.7 BUN/Creatinine Ratio 30.6 H Glucose 249 H POC Glucose 205 H Calcium 9.1 Phosphorus 3.5 Magnesium 2.1 Troponin I 0.073 H* Albumin 3.3 L 04/23/20 04/23/20 04/23/20 10:30 11:23 16:37 WBC RBC Hgb Hct MCV MCH MCHC RDW Std Deviation RDW Coeff of Linda Plt Count MPV Immature Gran % (Auto) Neut % (Auto) Lymph % (Auto) [place] % (Auto) Eos % (Auto) Baso % (Auto) Neut # (Auto) Lymph # (Auto) [place] # (Auto) Eos # (Auto) Baso # (Auto) Immature Gran # (Auto) APTT PTT Ratio Sodium Potassium Chloride Carbon Dioxide Anion Gap BUN Creatinine Est Cr Clr Drug Dosing Est GFR ( Amer) Est GFR (Non-Af Amer) BUN/Creatinine Ratio Glucose POC Glucose 430 H* 53 L* Calcium Phosphorus Magnesium Troponin I 0.074 H* Albumin 04/23/20 04/23/20 04/23/20 17:08 20:33 20:33 WBC RBC Hgb Hct MCV MCH MCHC RDW Std Deviation RDW Coeff of Linda Plt Count MPV Immature Gran % (Auto) Neut % (Auto) Lymph % (Auto) [place] % (Auto) Eos % (Auto) Baso % (Auto) Neut # (Auto) Lymph # (Auto) [place] # (Auto) Eos # (Auto) Baso # (Auto) Immature Gran # (Auto) APTT PTT Ratio Sodium Potassium Chloride Carbon Dioxide Anion Gap BUN Creatinine Est Cr Clr Drug Dosing Est GFR ( Amer) Est GFR (Non-Af Amer) BUN/Creatinine Ratio Glucose POC Glucose 61 L* 40 L* 40 L* Calcium Phosphorus Magnesium Troponin I Albumin 04/23/20 04/23/20 20:53 21:23 WBC RBC Hgb Hct MCV MCH MCHC RDW Std Deviation RDW Coeff of Linda Plt Count MPV Immature Gran % (Auto) Neut % (Auto) Lymph % (Auto) [place] % (Auto) Eos % (Auto) Baso % (Auto) Neut # (Auto) Lymph # (Auto) [place] # (Auto) Eos # (Auto) Baso # (Auto) Immature Gran # (Auto) APTT PTT Ratio Sodium Potassium Chloride Carbon Dioxide Anion Gap BUN Creatinine Est Cr Clr Drug Dosing Est GFR ( Amer) Est GFR (Non-Af Amer) BUN/Creatinine Ratio Glucose POC Glucose 50 L* 139 H Calcium Phosphorus Magnesium Troponin I Albumin Medications Administered Current Inpatient Medications Acetaminophen (Acetaminophen 325 Mg Tab) 650 mg PO Q4H PRN PRN Reason: Pain or Fever Stop: 05/21/20 00:38 Albuterol (Albut/Ipratrop 3mg/0.5mg Neb 3 Ml Vial) 3 ml NEB Q2H PRN PRN Reason: dyspnea Stop: 05/20/20 23:26 Albuterol (Albuterol Hfa 8 Gm Inhaler) 2 puffs INH QIDR PRN PRN Reason: Shortness Of Breath Or Wheezing Stop: 05/21/20 06:59 Amlodipine Besylate (Amlodipine Besylate 5 Mg Tab) [facility] [place] Stop: 05/21/20 08:59 Last Admin: 04/23/20 09:22 Dose: 2.5 mg Documented by: Aspirin (Aspirin 81 Mg Ectab) [facility] [place] Stop: 05/21/20 08:59 Last Admin: 04/23/20 09:22 Dose: 81 mg Documented by: Atorvastatin Calcium (Atorvastatin 40 Mg Tab) 40 mg PO HS [facility] Stop: 05/21/20 20:59 Last Admin: 04/23/20 20:59 Dose: 40 mg Documented by: Dextrose (Dextrose 50% 50 Ml Syringe) 25 - 50 ml IV UD PRN; Protocol PRN Reason: Hypoglycemia Protocol Stop: 05/21/20 00:38 Diclofenac Sodium (Diclofenac Sod 1% Gel 100 Gm Tube) 2 gm EXT BID PRN PRN Reason: Pain Stop: 05/21/20 00:38 Docusate Sodium (Docusate Sodium 100 Mg Cap) 100 mg PO BID PRN PRN Reason: Constipation Stop: 05/21/20 00:38 Duloxetine HCl (Duloxetine Hcl 20 Mg Cap) 20 mg PO QAM [facility] Stop: 05/21/20 08:59 Last Admin: 04/23/20 09:25 Dose: 20 mg Documented by: Enoxaparin Sodium (Enoxaparin Inj 30 Mg/0.3 Ml Syr) 30 mg SQ Q12H [facility] Stop: 05/21/20 08:59 Last Admin: 04/23/20 20:59 Dose: 30 mg Documented by: Gabapentin (Gabapentin 100 Mg Cap) 200 mg PO AMHS [facility] Stop: 05/21/20 08:59 Last Admin: 04/23/20 20:59 Dose: 200 mg Documented by: Glucagon (Glucagon For Inj 1 Mg Vial) 1 mg SQ UD PRN; Protocol PRN Reason: Hypoglycemia Protocol Stop: 05/21/20 00:38 Glucose (Glucose 10 Tabs/Tube) 4 - 8 tabs PO UD PRN; Protocol PRN Reason: Hypoglycemia Protocol Stop: 05/21/20 00:38 Glucose (Glucose 40% Gel 15 Gm Tube) 15 - 30 gm PO UD PRN; Protocol PRN Reason: Hypoglycemia Protocol Stop: 05/21/20 00:38 Insulin Aspart (Insulin Aspart 100 Units/Ml 3 Ml Pen) 0 units SC ACHS [facility] Stop: 05/21/20 07:29 Last Admin: 04/23/20 16:52 Dose: Not Given Documented by: Insulin Glargine (Insulin Glargine 100 Unit/Ml Vial) 50 units SC DAILY [facility] Stop: 05/22/20 08:59 Last Admin: 04/23/20 10:00 Dose: 50 units Documented by: Lactobacillus Acidoph/Casei/Rhamnos (Advanced Probiotic 1250 Mg Capsule) 2 cap PO DAILY [facility] Stop: 05/21/20 08:59 Last Admin: 04/23/20 09:24 Dose: 2 cap Documented by: Lidocaine (Lidocaine 5% 1 Patch) 1 patch TD Q24H [facility] Stop: 05/21/20 08:59 Last Admin: 04/23/20 09:26 Dose: 1 patch Documented by: Lisinopril (Lisinopril 40 Mg Tab) 40 mg PO QAM [facility] Stop: 05/21/20 08:59 Last Admin: 04/23/20 09:25 Dose: 40 mg Documented by: Meclizine HCl (Meclizine Hcl 25 Mg Tab) 25 mg PO Q8H [facility] Stop: 05/21/20 15:59 Last Admin: 04/23/20 16:34 Dose: 25 mg Documented by: Metoprolol Succinate (Metoprolol Succ 50mg Ext Rel Tab) 50 mg PO QAM [facility] Stop: 05/21/20 08:59 Last Admin: 04/23/20 09:25 Dose: 50 mg Documented by: Mirabegron (Mirabegron Er 25 Mg Tab) 50 mg PO HS [facility] Stop: 05/21/20 20:59 Last Admin: 04/23/20 20:59 Dose: 50 mg Documented by: Miscellaneous (Carbohydrates For Hypoglycemia ) 15 - 30 gm PO UD PRN PRN Reason: Hypoglycemia Protocol Stop: 05/21/20 00:38 Miscellaneous (Remove Lidoderm Patch) 1 ea N/A DAILY@2100 [facility] Stop: 05/21/20 20:59 Last Admin: 04/22/20 22:08 Dose: 1 ea Documented by: Multivitamins/Minerals (Cerovite Adv Formula Tab) 1 tab PO DAILY [facility] Stop: 05/21/20 08:59 Last Admin: 04/23/20 09:24 Dose: 1 tab Documented by: Ondansetron HCl (Ondansetron Inj 2 Mg/Ml 2 Ml Vial) 4 mg IV Q6H PRN PRN Reason: Nausea Stop: 05/21/20 00:38 Last Admin: 04/21/20 01:15 Dose: 4 mg Documented by: Sennosides (Senna 8.6 Mg Tab) 8.6 mg PO HS PRN PRN Reason: constipation Stop: 03/19/21 00:38 Tramadol HCl (Tramadol Hcl 50 Mg Tablet) 50 mg PO Q6H PRN PRN Reason: Moderate Pain Stop: 05/21/20 00:38 Last Admin: 04/23/20 21:07 Dose: 50 mg Documented by: Vitamin D (Cholecalciferol 1,000 Units 25 Mcg Tab) 2,000 units PO QAM [facility] Stop: 05/21/20 08:59 Last Admin: 04/23/20 09:25 Dose: 2,000 units Documented by: Zinc Sulfate (Zinc Sulfate 220 Mg Capsule) [facility] [place] Stop: 05/21/20 08:59 Last Admin: 04/23/20 09:25 Dose: 220 mg Documented by: PG Care Time/CCT Total # of Minutes Spent Total Time Spent with Patient: Total time spent is greater than 50% in coordination of care (as documented) at patient's floor/unit and/or counseling patient: Coding Level of Care Code 61304 Subseq Hosp Care Lvl 2 Diagnoses COVID-19 U07.1 Elevated troponin R77.8 Hypoxia R09.02 Acute UTI N39.0 Diabetes mellitus type 2, uncontrolled E11.65 CAD (coronary artery disease) I25.10 Stented coronary artery Z95.5 Hypertension I10 Hyperlipidemia E78.5 Post herpetic neuralgia B02.29 Diabetic peripheral neuropathy associated with type 2 diabetes mellitus E11.42 Cerebrovascular disease I67.9 Gait disturbance R26.9 Chest pain R07.9
[2020-04-24] MEDS: MECLIZINE HCL 25 MG TAB PO SCH ×2 (01:10→08:48)
--- NOTE | 2020-04-24 05:18 | Electrocardiogram Report ---
Test Reason : Blood Pressure : / mmHG Vent. Rate : 076 BPM Atrial Rate : 076 BPM P-R Int : 218 ms QRS Dur : 110 ms QT Int : 416 ms P-R-T Axes : 047 -13 037 degrees QTc Int : 468 ms Sinus rhythm with 1st degree A-V block Minimal voltage criteria for LVH, may be normal variant Borderline ECG When compared with ECG of 20-APR-2020 19:53, [place] interval has increased Confirmed by Babak Stallworth ([id number]) on 04/24/2020 5:17:30 AM Referred By: REFERRED SELF Confirmed By:Babak Stallworth
[2020-04-24] MEDS: DULoxetine HCL 20 MG CAP PO SCH (08:44)
[2020-04-24] MEDS: GABAPENTIN 100 MG CAP PO SCH (08:44)
[2020-04-24] MEDS: CHOLECALCIFEROL 1,000 UNITS 25 MCG TAB PO SCH (08:44)
[2020-04-24] MEDS: amLODIPine BESYLATE 5 MG TAB PO SCH (08:45)
[2020-04-24] MEDS: METOPROLOL SUCC 50MG EXT REL TAB PO SCH (08:47)
[2020-04-24] MEDS: CEROVITE ADV FORMULA TAB PO SCH (08:47)
[2020-04-24] MEDS: ASPIRIN 81 MG ECTAB PO SCH (08:47)
[2020-04-24] MEDS: lisinopril 40 MG TAB PO SCH (08:47)
[2020-04-24] MEDS: ZINC SULFATE 220 MG CAPSULE PO SCH (08:47)
[2020-04-24] MEDS: ADVANCED PROBIOTIC 1250 MG CAPSULE PO SCH (08:48)
[2020-04-24] MEDS: LIDOCAINE 5% 1 PATCH TD SCH (08:49)
[2020-04-24] MEDS: ENOXAPARIN INJ 30 MG/0.3 ML SYR SQ SCH (08:50)
[2020-04-24 08:56] LABS: Hematocrit (blood only) 40.3 % (37-47); Hemoglobin 13.4 g/dL (12.0-16.0); Mean Corpuscular Hgb Conc 33.3 g/dL (32-36); Mean Corpuscular Volume 90.2 fL (80-100); Mean Platelet Volume 9.9 fL (7.4-10.4); Platelet Count 200 K/uL (130-400); RDW Coefficient of Variation 13.3 % (11.5-14.5); RDW Standard Deviation 43.6 fL (36.4-46.3); Red Blood Count 4.47 M/uL (4.2-5.4); White Blood Count 8.74 K/uL (4.8-10.8)
[2020-04-24] MEDS: INSULIN GLARGINE 100 UNIT/ML VIAL SC SCH (09:00)
[2020-04-24] MEDS: INSULIN ASPART 100 UNITS/ML 3 ML PEN SC SCH ×2 (09:00→12:48)
[2020-04-24 09:18] LABS: BUN Creatinine Ratio 25.1 (10-20); Calcium 9.4 mg/dl (8.5-10.1); Creatinine Clr Calc Pharmacy 42.5 ml/min; Est GFR (African American) 67.7; Est GFR (Non-African American) 58.5; Potassium 3.7 mmol/L (3.5-5.1)
--- NOTE | 2020-04-24 13:15 | Discharge Summary ---
Date of Service April 24, 2020 Admission HPI Per Admitting Provider The patient is a 79-year-old female with a past medical history eluding lumbar region spinal stenosis, history of stroke with residual deficit, cerebrovascular disease, postherpetic neuralgia, right-sided temporal headache, diabetes mellitus type 2 uncontrolled, age-related cognitive decline, stented coronary artery, hypernatremia, neurogenic claudication due to lumbar spinal stenosis, closed L5 vertebral fracture, cervical radiculopathy, CAD, diabetic peripheral neuropathy, gout, hearing loss, hyperlipidemia, hypertension, IBS, mitral regurgitation, recurrent UTI, urinary urge incontinence, vitamin D deficiency, and lupus. The patient reports that her 18-year-old granddaughter came to live with her over the past 2 weeks, and serves as the most likely source of her symptoms. Abnormal laboratories: Lactate 2.9, glucose 186, troponin 0.054, COVID-19 positive. Chest x-ray showed changes of emphysema with mild chronic interstitial lung disease. CT chest angiography, PE protocol: No pulmonary embolism. No acute aortic syndrome. No acute pulmonary parenchymal abnormality. Mild subpleural interstitial thickening which appears chronic. No pleural effusion or pneumothorax. Cardiomegaly. Principal Diagnosis COVID 19 infection, diarrhea Discharge Exam Constitutional WD/WN, vitals as above Neck trachea midline, no thyromegaly Respiratory normal respiratory effort, lungs clear to auscultation Cardiovascular RRR, no murmur, no edema Gastrointestinal (Abdomen) normal bowel sounds, soft, nontender, no hepatosplenomegaly Musculoskeletal no cyanosis or clubbing, extremities motor strength 5/5 Skin no rashes, warm and dry Neurologic patellar DTR's 2+ bilat, sensation intact and PERRL, EOMI, accommodation nl, no face palsy, no dysarthria Psychiatric A+Ox3, euthymic affect Lymphatic no cervical or axillary lymphadenopathy Discharge Data Allergies Allergy/AdvReac Type Severity Reaction Status Date / Time dapsone Allergy Intermediate Rash Verified 01/13/20 12:10 Sulfa (Sulfonamide Allergy Mild Unknown Verified 01/13/20 12:10 Antibiotics) latex Allergy Unknown Unknown Verified 01/13/20 12:10 Cipro AdvReac Intermediate "i blew up Verified 02/11/17 15:06 like a balloon" per pt ciprofloxacin AdvReac Intermediate "i blew up Verified 01/13/20 12:10 like a balloon" per pt hydrocodone AdvReac Intermediate GI SYMPTOMS Verified 01/13/20 12:10 oxycodone AdvReac Intermediate GI SYMPTOMS Verified 01/13/20 12:10 adhesive AdvReac Unknown Unknown Verified 01/13/20 12:10 metronidazole [From Flagyl] AdvReac Unknown Unknown Verified 01/13/20 12:10 red dye AdvReac Unknown Unknown Verified 01/13/20 12:10 Consultations 04/20/20 22:14 ED Decision to Admit Stat 04/21/20 00:39 Consult Case Management - Discharge Planning Routine Ordered Studies 04/20/20 21:03 CT angio chest PE protocol Urgent Hospital Course (1) COVID-19: COVID-19 respiratory infection WITHOUT hypoxia- saturations > 95% for several days stopped dexamethasone, stopped Zithromax treated with Zinc sulfate 220 mg p.o. every morning Ventolin HFA 2 puffs 4 times daily, and every 2 hours as needed feeling better overall, less diarrhea, eating okay, less dizzy wants to go home (2) Elevated troponin: Elevated troponin/CAD/hypertension/stented coronary artery Troponin 0.054 upon admission, up to 0.07 several times, no further rise some mild chest pain but this was after some vomiting and reflux, EKG without ischemic changes no concern for demand ischemia or myopericarditis hold on cardiology consult, d/w Dr. Perez Continue amlodipine, aspirin, lisinopril and metoprolol succinate (3) Hypoxia: resolved within 24 hours of admission, lowest her saturation reached was 91% on room air but consistently > 95% her entire stay (4) Acute UTI: History of recurrent UTI. empirically placed on ceftriaxone 1 g IV daily. no growth on culture, stopped Ceftriaxone (5) Diabetes mellitus type 2, uncontrolled: Reduce Toujeo from 50 to 40 units subcu daily. Placed on Accu-Cheks before meals and at bedtime with NovoLog coverage per scale Hold Trulicity sugars labile throughout her stay, mostly iatrogenic first she experienced hyperglycemia with dexamethasone initially, sugars >400 at times then she had some hypoglycemia which was due to overcorrection with tight Novolog correction factor sugars much more stable the past 24 hours off of dexamethasone, Novolog sliding scale with correction factor of 20 discharge to home, resume Toujeo and Trulicity, follow diabetic diet, her sugars were not any issue prior to admission (6) CAD (coronary artery disease): See above (7) Stented coronary artery: See above (8) Hypertension: See above (9) Hyperlipidemia: Continue atorvastatin 40 mg at bedtime (10) Post herpetic neuralgia: Postherpetic neuralgia/diabetic peripheral neuropathy- Continue topical agents Voltaren gel and lidocaine patch. Continue gabapentin and tramadol (11) Diabetic peripheral neuropathy associated with type 2 diabetes mellitus: See above (12) Cerebrovascular disease: History of mild memory loss (13) Gait disturbance: feeling dizzy, has history of this will give meclizine q8, consult PT/OT she did okay with therapy, balance improves the longer she is walking she feels safe to go home, has a rolling walker and family close by (14) Chest pain: occurred after vomiting, reflux symptoms EKG without ischemic changes at the time no rise in troponin, stayed at 0.07 the entire visit, no concerns for ACS Total Time Total Time Spent Total Time Spent (In Minutes): 33 minutes Total Time Includes: Examination of the Patient, Discharge Planning and Medication Reconciliation Discharge Plan Discharge Items Patient Disposition: Home - Home Health Services Reason For Visit: COVID 19 INFECTION Discharge Diagnosis: COVID 19 infection Condition on Discharge: Good Goals: stay well nourished, well hydrated get rest Activity: Resume your previous activity Non-emergency contact: Primary Care Provider Call non-emergency contact if: you have any medication questions and your symptoms worsen Follow-up/Referrals: Markus Castillo MD [Primary Care Provider] - (one week) Diet: Carb Consistent or DM2 Addtl Attending Provider Instructions: Medications: continue all prior home medications - IMODIUM: take as needed for diarrhea/loose stools, can take one capsule every 6 hours as needed COVID 19 infection no signs of pneumonia, you never required oxygen, you were never hypoxic, no need for dexamethasone (steroid) diarrhea is due to COVID, make sure you stay well hydrated, replace what you lose, take Imodium as needed get rest, stay well nourished per CDC guidelines, you can come out of isolation 10 days from onset of symptoms or 10 days from your positive test Hyperglycemia and then hypoglycemia most of these issues were iatrogenic from steroids and then over correction from insulin follow low carbohydrate diet, take your Trulicity and Toujeo as prescribed Pending Studies at Discharge: No Stand-Alone Forms: My [facility], Smoking Cessation Medications and DC Order Prescriptions: New loperamide [Imodium A-D] 2 mg capsule 2 mg PO Q6H PRN (Reason: loose stool) Qty: 30 RF: 0 Continued sennosides [Senokot] 8.6 mg tablet 8.6 mg PO HS PRN (Reason: constipation) RF: 0 atorvastatin 40 mg tablet 40 mg PO HS Qty: 90 RF: 1 Myrbetriq 50 mg tablet extended release 24 hr 50 mg PO HS Qty: 90 RF: 3 tramadol [Ultram] 50 mg tablet 50 mg PO Q12H PRN (Reason: Pain) Qty: 60 RF: 5 (DME) pen needle, diabetic [BD Ultra-Fine Cris Pen Needle] 32 gauge x 5/32" needle See Rx Instructions .ROUTE .MEDSUPPLY Qty: 100 RF: 3 (DME) Truetrack Test Strip See Rx Instructions .ROUTE .MEDSUPPLY Qty: 100 RF: 3 Trulicity 1.5 mg/0.5 mL pen injector 1.5 mg SUBCUT WK 90 Days Qty: 6 RF: 3 metoprolol succinate [Toprol XL] 50 mg tablet extended release 24 hr 50 mg PO QAM Qty: 90 RF: 3 albuterol sulfate [Proventil HFA] 90 mcg/actuation HFA aerosol inhaler 1 - 2 inh INHALATION Q4H PRN (Reason: Shortness Of Breath Or Wheezing) Qty: 3 RF: 3 lidocaine 5 % adhesive patch,medicated 1 patch transdermal Q24H Qty: 3 RF: 1 cranberry 500 mg capsule 1,000 mg PO QAM RF: 0 coenzyme Q10 200 mg capsule 400 mg PO QAM RF: 0 docusate sodium [Colace] 100 mg capsule 100 mg PO BID PRN (Reason: Constipation) RF: 0 triamcinolone acetonide [Nasacort] 55 mcg aerosol,spray 1 spray INTNAS DAILY PRN (Reason: Congestion) RF: 0 lisinopril 40 mg tablet 40 mg PO QAM RF: 0 acetaminophen [Tylenol Extra Strength] 500 mg tablet 1,000 mg PO HS RF: 0 cholecalciferol (vitamin D3) [Vitamin D3] 50 mcg (2,000 unit) Capsule 2,000 unit PO QAM RF: 0 Women's One Daily 18 mg iron-400 mcg-500 mg Ca Tablet 1 tab PO DAILY RF: 0 aspirin 81 mg Tablet,Delayed Release (Dr/Ec) 81 mg PO QAM RF: 0 duloxetine 20 mg capsule,delayed release(DR/EC) 20 mg PO QAM RF: 0 [place] SoloStar U-300 Insulin 300 unit/mL (1.5 mL) insulin pen 50 unit SUBCUT DAILY RF: 0 biotin 10 mg Tablet 10 mg PO DAILY RF: 0 Probiotic 10 billion cell Capsule 10,000 mmu cells PO DAILY RF: 0 amlodipine 2.5 mg tablet 2.5 mg PO QAM RF: 0 gabapentin 100 mg capsule 200 mg PO AMHS RF: 0 ondansetron HCl 4 mg Tablet 4 mg PO Q6H PRN (Reason: Nausea) RF: 0 meclizine 25 mg Tablet 25 mg PO DAILY PRN (Reason: Dizziness) RF: 0 diclofenac sodium [Voltaren] 1 % Gel 2 g TOPICAL BID PRN (Reason: Pain) RF: 0 Discharge Orders: Discharge Order (Routine); Ordered 04/24/20 Ordered By: Jesus Persaud Admission Data Admit Date/Time: 04/20/20 23:16 Attending Provider: Jesus Persaud Admit Provider: Brandin Collins Primary Care Provider: Markus Castillo V. Other Providers: Brandin Collins Other Interventions: Discharge Summary Assessment (RN) Last Done: 04/24/20 14:23 Coding Level of Care Code D/C Day Management >30 mins Diagnoses COVID-19 U07.1 Elevated troponin R77.8 Hypoxia R09.02 Acute UTI N39.0 Diabetes mellitus type 2, uncontrolled E11.65 CAD (coronary artery disease) I25.10 Stented coronary artery Z95.5 Hypertension I10 Hyperlipidemia E78.5 Post herpetic neuralgia B02.29 Diabetic peripheral neuropathy associated with type 2 diabetes mellitus E11.42 Cerebrovascular disease I67.9 Gait disturbance R26.9 Chest pain R07.9
--- NOTE | 2020-05-04 14:41 | Coding Query ---
CODING QUERY To promote full compliance with coding requirements relating to patient care, provider participation is requested in all cases of ladle liner uncertainty. Please assist us with the question(s) below: Coding Question(s): The Discharge Summary documents, "Acute UTI: History of recurrent UTI. empirically placed on ceftriaxone 1 g IV daily.no growth on culture, stopped Ceftriaxone". Please specify below, in your clinical opinion, regarding Acute UTI. ( ) Possible Acute UTI was treated during this admission ( x ) Acute UTI was Ruled-Out ( ) Other: Please Specify Physician's Response(s): Thank you Rocio Guzmán Principal Diagnosis: "that condition established after study, to be chiefly responsible for occasioning the admission of the patient to the hospital for care." Co-Existing Principal Diagnosis: "when two or more diagnoses equally meet the criteria for principal diagnosis as determined by the circumstances of admission, diagnostic work up, and/or therapy provided, and the Alphabetic Index, Tabular List, or another coding guideline does not provide sequencing direction, any one of the diagnoses may be sequenced first." "When the physician has documented what appears to be a current diagnosis in the body of the record, but has not included the diagnosis in the final diagnostic statement, the physician should be asked whether the diagnosis should be added." ([facility] 2 QTR90. p3-4) FARZANA
== END 2020-04-24 16:00 | disposition home health service (06) | DRG 178 ==
LOC: ED 19:20 → 2S 23:16 → SUATTDRO 23:16 → 2S 04-21

== ENCOUNTER 2021-04-19 22:23 | Observation (INO) ==
[2021-04-19] MEDS ORDERED: OPTIRAY 320 125ml IV ONE (22:48)
[2021-04-19 23:06] LABS: Basophils # (auto) 0.01 K/uL (0-0.2); Basophils % (auto) 0.1 %; Eosinophils # (auto) 0.07 K/uL (0-0.5); Eosinophils % (auto) 0.7 %; Hematocrit (blood only) 36.9 % (37-47); Hemoglobin 12.3 g/dL (12.0-16.0); Immature Granulocytes # (auto) 0.03 K/uL (0.00-0.02); Immature Granulocytes % (auto) 0.3 %; Lymphocytes # (auto) 2.91 K/uL (1.2-3.4); Lymphocytes % (auto) 30.5 %; Mean Corpuscular Hemoglobin 29.9 pg (25-34); Mean Corpuscular Hgb Conc 33.3 g/dL (32-36); Mean Corpuscular Volume 89.6 fL (80-100); Mean Platelet Volume 9.5 fL (7.4-10.4); Monocytes # (auto) 0.68 K/uL (0.11-0.59); Monocytes % (auto) 7.1 %; Neutrophils # (auto) 5.83 K/uL (1.4-6.5); Neutrophils % (auto) 61.3 %; Platelet Count 261 K/uL (130-400); RDW Coefficient of Variation 13.6 % (11.5-14.5); Red Blood Count 4.12 M/uL (4.2-5.4); White Blood Count 9.53 K/uL (4.8-10.8)
--- NOTE | 2021-04-19 23:06 | CT Scan Report ---
CT head/brain wo con CLINICAL HISTORY: Stroke Like Symptoms . Increased confusion and slurred speech COMPARISON STUDY: 04/05/2015 CT DOSE: TECHNIQUE: Standard CT of the Brain was performed without IV contrast. A dose lowering technique was utilized adhering to the principles of ALARA. FINDINGS: Extraaxial space: There is no evidence for subdural hematoma. There are no extra-axial fluid collecti ons. Ventricles and cisterns: The ventricles are mildly dilated bilaterally. There is no evidence for mid line shift or mass effect. Parenchyma: There is no subarachnoid or intraparenchymal hemorrhage. There is no evidence for an acu te infarct or cerebral edema. Old lacunar infarct is seen involving the basal ganglia on the left. Th ere is mild cerebral cortical atrophy and decreased attenuation in the periventricular white matter r epresenting remote small vessel disease. There are no gross mass lesions. Osseous structures: There is no evidence for an acute fracture. The visualized paranasal sinuses are clear. The mastoid air cells are clear bilaterally. Soft tissues: There is no evidence for focal soft tissue swelling. IMPRESSION: 1. No acute intracerebral pathology. 2. Mild cerebral cortical atrophy, remote small vessel disease and old left-sided lacunar infarct. ACT 112: Negative or not required by law. Electronically signed by: Osman Holly M.D. 04/19/2021 11:05 PM
[2021-04-19 23:19] LABS: INR 1.1 (0.9-1.1); Partial Thromboplastin Time 25.5 Seconds (21.0-31.0); Prothrombin Time 11.4 Seconds (9.0-12.0)
--- NOTE | 2021-04-19 23:20 | CT Scan Report ---
CT angio neck with con CLINICAL HISTORY: Stroke Like Symptoms . Confusion and slurred speech COMPARISON STUDY: No previous studies for comparison. CT DOSE: TECHNIQUE: CT Angio of the neck was performed.followed by image post processing with coronal, and sa gittal MIP reformats.. Stenosis assessment by NASCET criteria. Contrast Volume: Optiray 320, 120 ml FINDINGS: Vascular findings: Right common carotid artery: Patent without significant stenosis. Right internal carotid artery: Patent without significant stenosis.Atherosclerotic calcification is s een at the origin of the internal carotid artery. There is also calcification of the intracranial por tion of the internal carotid artery. Right vertebral artery: Patent without significant stenosis. Left common carotid artery: Patent without significant stenosis. Left internal carotid artery: Patent without significant stenosis.There is calcification of the intra cranial portion of the internal carotid artery. Left vertebral artery: Patent without significant stenosis. The left vertebral artery is dominant whe n compared to the right. Nonvascular findings: The parotid and submandibular salivary glands appear normal. There is no enlarged cervical adenopathy noted. The airway appears patent. The thyroid gland appears within normal limits. The lung apices ap pear within normal limits. Impression: Essentially negative CT angiogram of the neck with contrast. ACT 112: Negative or not required by law. Electronically signed by: Osman Holly M.D. 04/19/2021 11:19 PM
--- NOTE | 2021-04-19 23:23 | CT Scan Report ---
CT angio head w con CLINICAL HISTORY: Stroke Like Symptoms . Confusion and slurred speech COMPARISON STUDY: Noncontrast CT of the brain from 04/19/2021 CT DOSE: 1152.82 mGy.cm TECHNIQUE: CT Angio of the brain was performed.followed by image post processing with coronal, and s agittal MIP reformats. Contrast Volume: Optiray 320, 120 ml FINDINGS: Vascular findings: There is normal enhancement within the internal carotid arteries bilaterally. Ther e is atherosclerotic calcification of the intracranial portion of the internal carotid arteries bilat erally. There is mild diffuse narrowing of the basilic artery with no focal stenosis identified. Ther e is normal enhancement noted within the anterior, middle and posterior cerebral arteries. Nonvascular findings: There is mild cerebral cortical atrophy and evidence for remote small vessel di sease. There is no evidence for an acute infarct or cerebral edema. IMPRESSION: Essentially negative CT angiogram of the brain with contrast. ACT 112: Negative or not required by law. Electronically signed by: Osman Holly M.D. 04/19/2021 11:22 PM
[2021-04-19 23:29] LABS: Troponin I 0.03 ng/ml (0-0.04)
[2021-04-19 23:33] LABS: Alanine Aminotransferase 10 U/L (7-52); Albumin Globulin Ratio 1.1 (0.9-2); Albumin Level 3.5 gm/dl (3.4-5.0); Alkaline Phosphatase 50 U/L (34-104); Anion Gap 7 (3-11); Aspartate Aminotransferase 12 U/L (13-39); BUN Creatinine Ratio 24.7 (10-20); Bilirubin,Total 0.6 mg/dl (0.2-1.0); Blood Urea Nitrogen 20 mg/dl (6-23); Calcium 8.6 mg/dl (8.5-10.1); Carbon Dioxide 27 mmol/L (21-32); Chloride 94 mmol/L (98-107); Est GFR (African American) 79.5 ml/min; Est GFR (Non-African American) 68.6 ml/min; Globulin 3.3 gm/dl (2.5-4.0); Glucose 380 mg/dl (70-99(Fasting)); Magnesium 1.5 mg/dl (1.7-2.4); Potassium 3.8 mmol/L (3.5-5.1); Sodium 128 mmol/L (136-145); Total Protein 6.8 gm/dl (6.0-8.3)
[2021-04-19] MEDS ORDERED: CLOPIDOGREL BISULFATE 300 MG TAB PO STA (23:33)
[2021-04-19] MEDS ORDERED: ASPIRIN CHEW 324 MG PO STA (23:33)
[2021-04-19] MEDS ORDERED: ONDANSETRON INJ 2 MG/ML 2 ML VIAL IV STA (23:54)
[2021-04-20] MEDS ORDERED: MAGNESIUM SULFATE / D5W 1 GM/100 ML BAG IV STA (00:04)
--- NOTE | 2021-04-20 00:04 | Emergency Department Note ---
History of Present Illness General Chief complaint: Stroke/CVA Symptoms Stated complaint: Stroke SX Time Seen by Provider: 04/19/21 22:27 History of Present Illness Provider complaint: Stroke like symptoms Onset (ago): minute(s) (72) 80-year-old female presents emergency department for strokelike symptoms. Per EMS, the patient started having abnormal speech at 2115. Family reported that she was confused. History of strokes. Home Medications Medication Instructions Recorded Confirmed Type cranberry 500 mg capsule 1,000 mg PO QAM 08/26/18 04/19/21 History coenzyme Q10 200 mg capsule 400 mg PO QAM cap 12/23/18 04/19/21 History meclizine 25 mg tablet 25 mg PO DAILY PRN 09/18/19 04/19/21 History cholecalciferol (vitamin D3) 50 2,000 unit PO QAM 11/11/19 04/19/21 History mcg (2,000 unit) capsule (Vitamin D3) multivit-iron 18 mg-folic acid 400 1 tab PO QAM 11/11/19 04/19/21 History mcg-calcium 500 mg-minerals tablet (Women's One Daily) albuterol sulfate 90 mcg/actuation 1 - 2 inh INHALATION Q4H PRN #3 04/07/20 04/19/21 Rx aerosol inhaler (Proventil HFA) inhaler Lactobacillus acidophilus 10 10,000 mmu cells PO QAM 04/20/20 04/19/21 History billion cell capsule (Probiotic) biotin 10 mg tablet 10 mg PO QAM 04/20/20 04/19/21 History lisinopril 40 mg tablet 40 mg PO QAM #90 tab 05/21/20 04/19/21 Rx pen needle, diabetic 32 gauge x #100 ea 06/25/20 04/04/21 Rx 5/32" (BD Ultra-Fine Cris Pen Needle) aspirin 81 mg tablet,delayed 81 mg PO QAM 08/12/20 04/19/21 History release (Aspirin Low Dose) gabapentin 100 mg capsule 200 mg PO BID 90 Days #360 cap 11/29/20 04/19/21 Rx atorvastatin 40 mg tablet (Lipitor) 40 mg PO HS 12/26/20 04/19/21 History insulin glargine U-300 conc 300 50 unit SUBCUT QAM 12/26/20 04/19/21 History unit/mL (1.5 mL) subcutaneous pen ([employer] SoloStar U-300 Insulin) ondansetron 4 mg disintegrating 4 mg PO Q6 PRN #14 tab 12/26/20 04/19/21 Rx tablet Truetrack Test (blood sugar #100 ea NS 01/19/21 04/04/21 Rx diagnostic) nystatin-triamcinolone 100,000 1 applic TOPICAL BID #30 g 01/20/21 04/19/21 Rx unit/gram-0.1 % topical ointment duloxetine 40 mg capsule,delayed 40 mg PO QAM 90 Days #90 cap 01/21/21 04/19/21 Rx release lancets 30 gauge (TRUEplus Lancets) #100 ea 02/10/21 04/04/21 Rx metoprolol succinate 50 mg 50 mg PO QAM #90 tab 02/15/21 04/19/21 Rx tablet,extended release 24 hr (Toprol XL) mirabegron 50 mg tablet,extended 50 mg PO DAILY #90 tab 03/15/21 04/19/21 Rx release 24 hr (Myrbetriq) lidocaine 5 % topical patch 1 patch TOPICAL DAILY PRN #30 ea 04/08/21 04/19/21 Rx Allergies Allergy/AdvReac Type Severity Reaction Status Date / Time dapsone Allergy Intermediate Rash Verified 04/19/21 23:42 Sulfa (Sulfonamide Allergy Mild Unknown Verified 04/19/21 23:42 Antibiotics) latex Allergy Unknown Unknown Verified 04/19/21 23:42 ciprofloxacin AdvReac Intermediate "i blew up Verified 04/19/21 23:42 like a balloon" per pt adhesive AdvReac Unknown Unknown Verified 04/19/21 23:42 metronidazole [From Flagyl] AdvReac Unknown Unknown Verified 04/19/21 23:42 red dye AdvReac Unknown Unknown Verified 04/19/21 23:42 Past Med/Surg History Medical History Abdominal pain Acute low back pain with bilateral sciatica Acute UTI Acute UTI Ambulatory dysfunction Arm DVT (deep venous thromboembolism), acute Arm injuries Arm skin lesion, right C. difficile colitis Chest pain Chest wall contusion Contusion, hip COVID-19 Dehydration Diabetes Dysuria Edema leg Elevated troponin Fall Hip pain Hx of renal calculi Hyperglycemia due to diabetes mellitus Hypernatremia Hypoxia Injury of hip Light sensitivity Lupus Muscular pain Nausea Nausea, vomiting and diarrhea Right sided temporal headache Spinal stenosis of lumbar region Stroke Swelling of right upper extremity UTI (urinary tract infection) Vertigo Surgical History History of lithotripsy Hx of cholecystectomy S/P cardiac catheterization Family History Mother Alzheimer disease Hypertension Brother Diabetes Father Hypertension Sister Lung cancer Other Family history non-contributory Stroke Social History Smoking Status: Unknown if ever smoked Second Hand Exposure: No; Hx Alcohol Use: No Hx Substance Use: No Preferred Language: Cypriot Communication Ability: Effective Visual Impairment: No Limitations Hearing Ability: Normal [employer]sembler [employer] Required: No Beliefs That Will Affect Care: None marital status: / Current Living Situation: Family current occupational status: retired Feels Safe at Home: Yes Childhood Exposure to Second-Hand Smoke: No Dental Care, Regularly: No Physical Activity Frequency: Does not Exercise Seatbelt Use: always Sunscreen Use: No Assistive Devices: Walker Review of Systems Unobtainable due to cognitive status Physical Exam Vital Signs Vital Signs - 24 hr 04/19/21 22:56 04/19/21 23:08 04/19/21 23:15 Temperature 36.4 C L Temperature Source Oral Pulse Rate 87 Pulse Rate [Apical] 84 87 Respiratory Rate 20 20 24 Respiratory Effort / Characteristics Non-Labored Spontaneous Non-Labored Spontaneous Non-Labored Spontaneous Respiratory Depth Normal Normal Normal Respiratory Pattern Regular Blood Pressure 236/91 H Blood Pressure [Right Arm] 236/91 H 201/112 H Blood Pressure Mean 139 Blood Pressure Mean [Right Arm] 139 141 Pulse Oximetry 96 98 98 Oxygen Delivery Method Room Air Room Air Room Air Sepsis Recent Fever Within 48 Hours No Sepsis New/Unexplained Change in Mental Status No Sepsis Action Taken by Nursing No Action Required Physical Exam HENT: Exam performed. -Head: Normocephalic and atraumatic. -Right Ear: External ear normal. No mastoid tenderness. -Left Ear: External ear normal. No mastoid tenderness. -Mouth/Throat: The oropharynx is clear and moist. No trismus in the jaw. No dental abscesses or uvula swelling. No oropharyngeal exudate or tonsillar abscesses. EYES: Conjunctivae and EOM are normal. Pupils are equal, round, and reactive to light. Right eye exhibits no discharge. Left eye exhibits no discharge. No scleral icterus. NECK: Normal range of motion. Neck supple. No JVD present. No spinous process tenderness present. No carotid bruit present. No rigidity. No tracheal deviation and normal range of motion present. No Brudzinski's sign and no Kernig's sign noted. CV: Normal rate, regular rhythm, normal heart sounds and intact distal pulses. There is no peripheral edema. Palpable radial pulses bue. PULM/CHEST: Effort normal and breath sounds normal. No respiratory distress. No stridor. She has no wheezes. She has no rales. -Chest Wall: She exhibits no tenderness. ABD: The abdomen is soft. LYMPH: No cervical adenopathy. NEURO: NIHSS 6 (1b: 2, 4:1, 9: 2, 10:1) Course Course 2215: Received call from EMS about patient being confused with history of strokes. 2227: The patient was evaluated in room B5. A complete history and physical exam was performed Cardiac monitoring: An order was placed for continuous cardiac monitoring. The monitor shows a rate of 80 with sinus rhythm Code stroke called. 2247: Spoke with Dr. Carlene Smith teleneurology who will be on to evaluate the patient. 2305: Family is here now and state that the last known normal of the patient was actually 1730, not 2115. Based off this patient is not a candidate for thrombolytics. We will plan on admitting the patient to the hospital service for stroke. Administered Medications Discontinued Medications Ioversol (Optiray 320 125ml) 120 ml IV ONCE ONE Stop: 04/19/21 22:49 Last Admin: 04/19/21 22:50 Dose: 1 ml Documented by: [id number] Medical Decision Making Laboratory Data Result diagrams: 04/19/21 22:52 04/19/21 22:52 Lab Results 04/19/21 04/19/21 04/19/21 Range/Units 22:49 22:52 22:52 WBC 9.53 (4.8-10.8) K/uL RBC 4.12 L (4.2-5.4) M/uL Hgb 12.3 (12.0-16.0) g/dL Hct 36.9 L (37-47) % MCV 89.6 (80-100) fL MCH 29.9 (25-34) pg MCHC 33.3 (32-36) g/dL RDW Std Deviation 45.0 (36.4-46.3) fL RDW Coeff of Linda 13.6 (11.5-14.5) % Plt Count 261 (130-400) K/uL MPV 9.5 (7.4-10.4) fL Immature Gran % (Auto) 0.3 % Neut % (Auto) 61.3 % Lymph % (Auto) 30.5 % Mellette % (Auto) 7.1 % Eos % (Auto) 0.7 % Baso % (Auto) 0.1 % Neut # (Auto) 5.83 (1.4-6.5) K/uL Lymph # (Auto) 2.91 (1.2-3.4) K/uL Mellette # (Auto) 0.68 H (0.11-0.59) K/uL Eos # (Auto) 0.07 (0-0.5) K/uL Baso # (Auto) 0.01 (0-0.2) K/uL Immature Gran # (Auto) 0.03 H (0.00-0.02) K/uL PT 11.4 (9.0-12.0) Seconds INR 1.1 (0.9-1.1) APTT 25.5 (21.0-31.0) Seconds PTT Ratio 1.0 Sodium (136-145) mmol/L Potassium (3.5-5.1) mmol/L Chloride (98-107) mmol/L Carbon Dioxide (21-32) mmol/L Anion Gap (3-11) BUN (6-23) mg/dl Creatinine (0.6-1.2) mg/dl Est Cr Clr Drug Dosing Est GFR ( Amer) ml/min Est GFR (Non-Af Amer) ml/min BUN/Creatinine Ratio (10-20) Glucose (70-99(Fasting)) mg/dl POC Glucose 452 H* (70-99) mg/dl Calcium (8.5-10.1) mg/dl Magnesium (1.7-2.4) mg/dl Total Bilirubin (0.2-1.0) mg/dl AST (13-39) U/L ALT (7-52) U/L Alkaline Phosphatase (34-104) U/L Troponin I (0-0.04) ng/ml Total Protein (6.0-8.3) gm/dl Albumin (3.4-5.0) gm/dl Globulin (2.5-4.0) gm/dl Albumin/Globulin Ratio (0.9-2) SARS-CoV-2, RNA, NAAT (NEGATIVE) 04/19/21 04/19/21 Range/Units 22:52 Unknown WBC (4.8-10.8) K/uL RBC (4.2-5.4) M/uL Hgb (12.0-16.0) g/dL Hct (37-47) % MCV (80-100) fL MCH (25-34) pg MCHC (32-36) g/dL RDW Std Deviation (36.4-46.3) fL RDW Coeff of Linda (11.5-14.5) % Plt Count (130-400) K/uL MPV (7.4-10.4) fL Immature Gran % (Auto) % Neut % (Auto) % Lymph % (Auto) % Mellette % (Auto) % Eos % (Auto) % Baso % (Auto) % Neut # (Auto) (1.4-6.5) K/uL Lymph # (Auto) (1.2-3.4) K/uL Mellette # (Auto) (0.11-0.59) K/uL Eos # (Auto) (0-0.5) K/uL Baso # (Auto) (0-0.2) K/uL Immature Gran # (Auto) (0.00-0.02) K/uL PT (9.0-12.0) Seconds INR (0.9-1.1) APTT (21.0-31.0) Seconds PTT Ratio Sodium 128 L (136-145) mmol/L Potassium 3.8 (3.5-5.1) mmol/L Chloride 94 L (98-107) mmol/L Carbon Dioxide 27 (21-32) mmol/L Anion Gap 7 (3-11) BUN 20 (6-23) mg/dl Creatinine 0.81 (0.6-1.2) mg/dl Est Cr Clr Drug Dosing Not Reportable Est GFR ( Amer) 79.5 ml/min Est GFR (Non-Af Amer) 68.6 ml/min BUN/Creatinine Ratio 24.7 H (10-20) Glucose 380 H* (70-99(Fasting)) mg/dl POC Glucose (70-99) mg/dl Calcium 8.6 (8.5-10.1) mg/dl Magnesium 1.5 L (1.7-2.4) mg/dl Total Bilirubin 0.6 (0.2-1.0) mg/dl AST 12 L (13-39) U/L ALT 10 (7-52) U/L Alkaline Phosphatase 50 (34-104) U/L Troponin I 0.03 (0-0.04) ng/ml Total Protein 6.8 (6.0-8.3) gm/dl Albumin 3.5 (3.4-5.0) gm/dl Globulin 3.3 (2.5-4.0) gm/dl Albumin/Globulin Ratio 1.1 (0.9-2) SARS-CoV-2, RNA, NAAT NEGATIVE (NEGATIVE) Imaging Data Radiologist's Impression: Head CT 04/19/21 22:34 CT head/brain wo con CLINICAL HISTORY: Stroke Like Symptoms . Increased confusion and slurred speech COMPARISON STUDY: 04/05/2015 CT DOSE: TECHNIQUE: Standard CT of the Brain was performed without IV contrast. A dose lowering technique was utilized adhering to the principles of ALARA. FINDINGS: Extraaxial space: There is no evidence for subdural hematoma. There are no extra-axial fluid collections. Ventricles and cisterns: The ventricles are mildly dilated bilaterally. There is no evidence for midline shift or mass effect. Parenchyma: There is no subarachnoid or intraparenchymal hemorrhage. There is no evidence for an acute infarct or cerebral edema. Old lacunar infarct is seen involving the basal ganglia on the left. There is mild cerebral cortical atrophy and decreased attenuation in the periventricular white matter representing remote small vessel disease. There are no gross mass lesions. Osseous structures: There is no evidence for an acute fracture. The visualized paranasal sinuses are clear. The mastoid air cells are clear bilaterally. Soft tissues: There is no evidence for focal soft tissue swelling. IMPRESSION: 1. No acute intracerebral pathology. 2. Mild cerebral cortical atrophy, remote small vessel disease and old left- sided lacunar infarct. ACT 112: Negative or not required by law. Electronically signed by: Osman Holly M.D. 04/19/2021 11:05 PM Head CTA 04/19/21 22:34 CT angio head w con CLINICAL HISTORY: Stroke Like Symptoms . Confusion and slurred speech COMPARISON STUDY: Noncontrast CT of the brain from 04/19/2021 CT DOSE: 1152.82 mGy.cm TECHNIQUE: CT Angio of the brain was performed.followed by image post processing with coronal, and sagittal MIP reformats. Contrast Volume: Optiray 320, 120 ml FINDINGS: Vascular findings: There is normal enhancement within the internal carotid arteries bilaterally. There is atherosclerotic calcification of the intracranial portion of the internal carotid arteries bilaterally. There is mild diffuse narrowing of the basilic artery with no focal stenosis identified. There is normal enhancement noted within the anterior, middle and posterior cerebral arteries. Nonvascular findings: There is mild cerebral cortical atrophy and evidence for remote small vessel disease. There is no evidence for an acute infarct or cerebral edema. IMPRESSION: Essentially negative CT angiogram of the brain with contrast. ACT 112: Negative or not required by law. Electronically signed by: Osman Holly M.D. 04/19/2021 11:22 PM Neck CTA 04/19/21 22:34 CT angio neck with con CLINICAL HISTORY: Stroke Like Symptoms . Confusion and slurred speech COMPARISON STUDY: No previous studies for comparison. CT DOSE: TECHNIQUE: CT Angio of the neck was performed.followed by image post processing with coronal, and sagittal MIP reformats.. Stenosis assessment by NASCET criteria. Contrast Volume: Optiray 320, 120 ml FINDINGS: Vascular findings: Right common carotid artery: Patent without significant stenosis. Right internal carotid artery: Patent without significant stenosis.Atherosclerotic calcification is seen at the origin of the internal carotid artery. There is also calcification of the intracranial portion of the internal carotid artery. Right vertebral artery: Patent without significant stenosis. Left common carotid artery: Patent without significant stenosis. Left internal carotid artery: Patent without significant stenosis.There is calcification of the intracranial portion of the internal carotid artery. Left vertebral artery: Patent without significant stenosis. The left vertebral artery is dominant when compared to the right. Nonvascular findings: The parotid and submandibular salivary glands appear normal. There is no enlarged cervical adenopathy noted. The airway appears patent. The thyroid gland appears within normal limits. The lung apices appear within normal limits. Impression: Essentially negative CT angiogram of the neck with contrast. ACT 112: Negative or not required by law. Electronically signed by: Osman Holly M.D. 04/19/2021 11:19 PM ECG Data Indication: + other (cva) Rate (beats per minute): 80 Rhythm: + normal sinus ECG Intervals/blocks: + Normal QRS, + Normal MA and + Normal QT-c ECG ST segments: + Normal ST segments MDM Narrative 2215: Received call from EMS about patient being confused with history of strokes. 2227: The patient was evaluated in room B5. A complete history and physical exam was performed Cardiac monitoring: An order was placed for continuous cardiac monitoring. The monitor shows a rate of 80 with sinus rhythm Code stroke called. 2247: Spoke with Dr. Carlene Smith teleneurology who will be on to evaluate the patient. 2305: Family is here now and state that the last known normal of the patient was actually 1729, not 2114. Based off this patient is not a candidate for thrombolytics. We will plan on admitting the patient to the hospital service for stroke. Impression & Plan Cerebrovascular accident Discharge Plan Visit Data Chief Complaint: Stroke/CVA Symptoms Stated Complaint: Stroke SX ED Provider: Emmanuel Jeter Discharge Problem: Cerebrovascular accident Patient Disposition: Admitted As Inpatient Forms Stand Alone Forms: [facility] Prescriptions Prescriptions: No Action albuterol sulfate [Proventil HFA] 90 mcg/actuation HFA aerosol inhaler 1 - 2 inh INHALATION Q4H PRN (Reason: Shortness Of Breath Or Wheezing) Qty: 3 RF: 3 lisinopril 40 mg tablet 40 mg PO QAM Qty: 90 RF: 3 (DME) pen needle, diabetic [BD Ultra-Fine Cris Pen Needle] 32 gauge x 5/32" needle See Rx Instructions .ROUTE .MEDSUPPLY Qty: 100 RF: 3 gabapentin 100 mg capsule 200 mg PO BID 90 Days Qty: 360 RF: 1 duloxetine 40 mg capsule,delayed release(DR/EC) 40 mg PO QAM 90 Days Qty: 90 RF: 1 metoprolol succinate [Toprol XL] 50 mg tablet extended release 24 hr 50 mg PO QAM Qty: 90 RF: 3 Myrbetriq 50 mg tablet extended release 24 hr 50 mg PO DAILY Qty: 90 RF: 1 lidocaine 5 % adhesive patch,medicated 1 patch topical DAILY PRN (Reason: pain (scale score 7-10)) Qty: 30 RF: 0 cranberry 500 mg capsule 1,000 mg PO QAM RF: 0 coenzyme Q10 200 mg capsule 400 mg PO QAM RF: 0 aspirin [Aspirin Low Dose] 81 mg tablet,delayed release (DR/EC) 81 mg PO QAM RF: 0 nystatin-triamcinolone 100,000-0.1 unit/gram-% ointment 1 applic topical BID Qty: 30 RF: 1 (DME) lancets [TRUEplus Lancets] 30 gauge misc See Rx Instructions .Route Qty: 100 RF: 3 (DME) Truetrack Test Strip See Rx Instructions .Route Qty: 100 RF: 3 cholecalciferol (vitamin D3) [Vitamin D3] 50 mcg (2,000 unit) Capsule 2,000 unit PO QAM RF: 0 Women's One Daily 18 mg iron-400 mcg-500 mg Ca Tablet 1 tab PO QAM RF: 0 biotin 10 mg Tablet 10 mg PO QAM RF: 0 Probiotic 10 billion cell Capsule 10,000 mmu cells PO QAM RF: 0 meclizine 25 mg Tablet 25 mg PO DAILY PRN (Reason: Dizziness) RF: 0 atorvastatin [Lipitor] 40 mg tablet 40 mg PO HS RF: 0 [employer] SoloStar U-300 Insulin 300 unit/mL (1.5 mL) insulin pen 50 unit SUBCUT QAM RF: 0 ondansetron 4 mg tablet,disintegrating 4 mg PO Q6 PRN (Reason: nausea and vomiting) Qty: 14 RF: 0 Referrals Referrals: Markus Castillo MD [Primary Care Provider] -
[2021-04-20 00:47] LABS: Appearance Urine Turbid (Clear); Bacteria Urine Automated 2+ (Negative); Bilirubin Urine Negative (Negative); Blood Urine 2+ (Negative); Color Urine Yellow; Epithelial Cell Urine Auto >30 /lpf (0-5); Glucose Urine UA 3+ (Negative); Ketones Urine Negative (Negative); Leukocyte Esterase Urine 2+ (Negative); Nitrite Urine Negative (Negative); Protein Urine 2+ (Negative); Specific Gravity Urine 1.031 (1.000-1.030); Urobilinogen Urine Negative (Negative); WBC Urine Automated >30 /hpf (0-5)
--- NOTE | 2021-04-20 00:56 | History & Physical Report ---
Date of Service April 20, 2021 Assessment & Plan (1) Cerebrovascular accident: Plan: CVA/expressive aphasia, word salad/previous CVA with residual effects, forgetfulness- NPO Permissive hypertension Stroke without thrombolytics order set Consult PT/OT/speech/neurology (2) H/O: stroke with residual effects: Plan: See above CT of head shows old left basal ganglia infarct (3) Stented coronary artery: Plan: Stented coronary artery/CAD/hypertension- Hold on medications for now until cleared by speech (4) CAD (coronary artery disease): Plan: See above (5) Hypertension: Plan: See above (6) Diabetes mellitus type 2, uncontrolled: Plan: Decrease insulin glargine from 50 to 20 units subcu every morning Place on Accu-Cheks before meals and at bedtime NovoLog coverage per scale Check hemoglobin A1c (7) Hyperlipidemia: Plan: Hold atorvastatin while n.p.o. (8) Lupus: History of Present Illness Chief Complaint: The patient presented to the emergency department as a stroke alert, and symptoms of expressive aphasia Primary Care Provider: Markus Castillo MD The patient is an 80-year-old female with a past medical history including stented coronary artery, Tahira glabrata infection, venoocclusive disease, lumbar spinal stenosis, CVA with residual effects, diabetes mellitus,, closed L5 vertebral fracture, CAD, gout, hyperlipidemia, hypertension, recurrent UTI, vitamin D deficiency and lupus. Patient presents with expressive aphasia/word salad that began at 5:30 PM, well outside the time interval potential treatment with thrombolytics. CTA of the head without contrast shows an old left basal ganglia infarct. CTA head and neck were both negative. Patient was assessed by [facility] neuro and recommendation was for no thrombolytic treatment Significant laboratories: Sodium 128, glucose 380, magnesium 1.5. Patient was COVID-19 negative Allergies Allergy/AdvReac Type Severity Reaction Status Date / Time dapsone Allergy Intermediate Rash Verified 04/19/21 23:42 Sulfa (Sulfonamide Allergy Mild Unknown Verified 04/19/21 23:42 Antibiotics) latex Allergy Unknown Unknown Verified 04/19/21 23:42 ciprofloxacin AdvReac Intermediate "i blew up Verified 04/19/21 23:42 like a balloon" per pt adhesive AdvReac Unknown Unknown Verified 04/19/21 23:42 metronidazole [From Flagyl] AdvReac Unknown Unknown Verified 04/19/21 23:42 red dye AdvReac Unknown Unknown Verified 04/19/21 23:42 Home Medications Medication Instructions Recorded Confirmed Type cranberry 500 mg capsule 1,000 mg PO QAM 08/26/18 04/19/21 History coenzyme Q10 200 mg capsule 400 mg PO QAM cap 12/23/18 04/19/21 History meclizine 25 mg tablet 25 mg PO DAILY PRN 09/18/19 04/19/21 History cholecalciferol (vitamin D3) 50 2,000 unit PO QAM 11/11/19 04/19/21 History mcg (2,000 unit) capsule (Vitamin D3) multivit-iron 18 mg-folic acid 400 1 tab PO QAM 11/11/19 04/19/21 History mcg-calcium 500 mg-minerals tablet (Women's One Daily) albuterol sulfate 90 mcg/actuation 1 - 2 inh INHALATION Q4H PRN #3 04/07/20 04/19/21 Rx aerosol inhaler (Proventil HFA) inhaler Lactobacillus acidophilus 10 10,000 mmu cells PO QAM 04/20/20 04/19/21 History billion cell capsule (Probiotic) biotin 10 mg tablet 10 mg PO QAM 04/20/20 04/19/21 History lisinopril 40 mg tablet 40 mg PO QAM #90 tab 05/21/20 04/19/21 Rx pen needle, diabetic 32 gauge x #100 ea 06/25/20 04/04/21 Rx 5/32" (BD Ultra-Fine Cris Pen Needle) aspirin 81 mg tablet,delayed 81 mg PO QAM 08/12/20 04/19/21 History release (Aspirin Low Dose) gabapentin 100 mg capsule 200 mg PO BID 90 Days #360 cap 11/29/20 04/19/21 Rx atorvastatin 40 mg tablet (Lipitor) 40 mg PO HS 12/26/20 04/19/21 History insulin glargine U-300 conc 300 50 unit SUBCUT QAM 12/26/20 04/19/21 History unit/mL (1.5 mL) subcutaneous pen (Touejo SoloStar U-300 Insulin) ondansetron 4 mg disintegrating 4 mg PO Q6 PRN #14 tab 12/26/20 04/19/21 Rx tablet Truetrack Test (blood sugar #100 ea NS 01/19/21 04/04/21 Rx diagnostic) nystatin-triamcinolone 100,000 1 applic TOPICAL BID #30 g 01/20/21 04/19/21 Rx unit/gram-0.1 % topical ointment duloxetine 40 mg capsule,delayed 40 mg PO QAM 90 Days #90 cap 01/21/21 04/19/21 Rx release lancets 30 gauge (TRUEplus Lancets) #100 ea 02/10/21 04/04/21 Rx metoprolol succinate 50 mg 50 mg PO QAM #90 tab 02/15/21 04/19/21 Rx tablet,extended release 24 hr (Toprol XL) mirabegron 50 mg tablet,extended 50 mg PO DAILY #90 tab 03/15/21 04/19/21 Rx release 24 hr (Myrbetriq) lidocaine 5 % topical patch 1 patch TOPICAL DAILY PRN #30 ea 04/08/21 04/19/21 Rx Past Med/Surg History Medical History Abdominal pain Acute low back pain with bilateral sciatica Acute UTI Acute UTI Ambulatory dysfunction Arm DVT (deep venous thromboembolism), acute Arm injuries Arm skin lesion, right C. difficile colitis Chest pain Chest wall contusion Contusion, hip COVID-19 Dehydration Diabetes Dysuria Edema leg Elevated troponin Fall Hip pain Hx of renal calculi Hyperglycemia due to diabetes mellitus Hypernatremia Hypoxia Injury of hip Light sensitivity Lupus Muscular pain Nausea Nausea, vomiting and diarrhea Right sided temporal headache Spinal stenosis of lumbar region Stroke Swelling of right upper extremity UTI (urinary tract infection) Vertigo Surgical History History of lithotripsy Hx of cholecystectomy S/P cardiac catheterization Family History Mother Alzheimer disease Hypertension Brother Diabetes Father Hypertension Sister Lung cancer Other Family history non-contributory Stroke Social History Smoking Status: Never smoker Second Hand Exposure: No; Do You Dip or Chew Tobacco: No; Hx Alcohol Use: No Hx Substance Use: No Preferred Language: Italian Communication Ability: Impaired Visual Impairment: No Limitations Hearing Ability: Normal Relief Master Required: No Beliefs That Will Affect Care: None marital status: / Current Living Situation: Family current occupational status: retired Other Information That Helps Us Care for You: No Feels Safe at Home: Yes Safety Concerns: Feels Safe At This Time Childhood Exposure to Second-Hand Smoke: No Dental Care, Regularly: No Physical Activity Frequency: Does not Exercise Seatbelt Use: always Sunscreen Use: No Assistive Devices: Glasses and Walker Review of Systems Review of Systems: The patient's HPI and review of systems was somewhat limited due to her expressive aphasia, but per EMS and family accounts, and will could be obtained from the patient, she was having no signs of illness and was in her usual state of health prior to today's events Physical Exam Physical Exam: The patient is awake, alert and oriented 3, well developed and well nourished, normocephalic and atraumatic, lying in bed and in no acute distress. HEENT--PERRL, EOMI, mucous membranes and oropharynx normal. Neck--supple. No JVD. No bruits. Thyroid normal, trachea midline, no adenopathy. Heart--normal S1 and S2. No murmurs, rubs or gallops. Lungs--clear bilaterally, no respiratory distress, no accessory muscle use. Abdomen--normal bowel sounds and soft. Nontender. Nondistended, no hernias or masses, no organomegaly. Extremities--no cyanosis or clubbing. Right lower extremity with trace to 1+ pitting edema. Dermatologic--normal skin turgor, normal color, no abnormal lymph nodes, no rash. Neurologic--cranial nerves II through XII grossly intact. Rheumatologic--normal range of motion. Psychiatric--normal affect. Results & Data Results & Data ([facility]) Vital Signs (Past 12 Hours) Vital Signs Temp Pulse Pulse Resp BP BP Pulse Ox 04/20/21 00:45 85 18 229/131 H 95 04/19/21 23:52 96 H 18 162/115 H 96 04/19/21 23:15 87 24 201/112 H 98 04/19/21 23:08 36.4 C L 87 20 236/91 H 98 04/19/21 22:56 84 20 236/91 H 96 Laboratory Results Laboratory Results WBC 9.53 K/uL (4.8-10.8) 04/19/21 22:52 RBC 4.12 M/uL (4.2-5.4) L 04/19/21 22:52 Hgb 12.3 g/dL (12.0-16.0) 04/19/21 22:52 Hct 36.9 % (37-47) L 04/19/21: MCV 89.6 fL (80-100) 04/19/21 22: MCH 29.9 pg (25-34) 04/19/21: MCHC 33.3 g/dL (32-36) 04/19/21: RDW Std Deviation 45.0 fL (36.4-46.3) 04/19/21: RDW Coeff of Linda 13.6 % (11.5-14.5) 04/19/21: Plt Count 261 K/uL (130-400) 04/19/21: MPV 9.5 fL (7.4-10.4) 04/19/21:52 Immature Gran % (Auto) 0.3 % 04/19/21:52 Neut % (Auto) 61.3 % 04/19/21:52 Lymph % (Auto) 30.5 % 04/19/21 22:52 [place] % (Auto) 7.1 % 04/19/21: Eos % (Auto) 0.7 % 04/19/21:52 Baso % (Auto) 0.1 % 04/19/21:52 Neut # (Auto) 5.83 K/uL (1.4-6.5) 04/19/21:52 Lymph # (Auto) 2.91 K/uL (1.2-3.4) 04/19/21 22:52 [place] # (Auto) 0.68 K/uL (0.11-0.59) H 04/19/21:52 Eos # (Auto) 0.07 K/uL (0-0.5) 04/19/21:52 Baso # (Auto) 0.01 K/uL (0-0.2) 04/19/21:52 Immature Gran # (Auto) 0.03 K/uL (0.00-0.02) H 04/19/21 22:52 PT 11.4 Seconds (9.0-12.0) 04/19/21 22:52 INR 1.1 (0.9-1.1) 04/19/21 22:52 APTT 25.5 Seconds (21.0-31.0) 04/19/21:52 PTT Ratio 1.0 04/19/21 22:52 Sodium 128 mmol/L (136-145) L 04/19/21 22:52 Potassium 3.8 mmol/L (3.5-5.1) 04/19/21 22:52 Chloride 94 mmol/L (98-107) L 04/19/21 22:52 Carbon Dioxide 27 mmol/L (21-32) 04/19/21 22:52 Anion Gap 7 (3-11) 04/19/21 22:52 BUN 20 mg/dl (6-23) 04/19/21 22:52 Creatinine 0.81 mg/dl (0.6-1.2) 04/19/21 22:52 Est Cr Clr Drug Dosing Not Reportable 04/19/21 22:52 Est GFR ( Amer) 79.5 ml/min 04/19/21 22:52 Est GFR (Non-Af Amer) 68.6 ml/min 04/19/21 22:52 BUN/Creatinine Ratio 24.7 (10-20) H 04/19/21 22:52 Glucose 380 mg/dl (70-99(Fasting)) H* 04/19/21 22:52 POC Glucose 342 mg/dl (70-99) H* 04/20/21 02:12 Calcium 8.6 mg/dl (8.5-10.1) 04/19/21 22:52 Magnesium 1.5 mg/dl (1.7-2.4) L 04/19/21 22:52 Total Bilirubin 0.6 mg/dl (0.2-1.0) 04/19/21 22:52 AST 12 U/L (13-39) L 04/19/21 22:52 ALT 10 U/L (7-52) 04/19/21 22:52 Alkaline Phosphatase 50 U/L (34-104) 04/19/21 22:52 Troponin I 0.03 ng/ml (0-0.04) 04/19/21 22:52 Total Protein 6.8 gm/dl (6.0-8.3) 04/19/21 22:52 Albumin 3.5 gm/dl (3.4-5.0) 04/19/21 22:52 Globulin 3.3 gm/dl (2.5-4.0) 04/19/21 22:52 Albumin/Globulin Ratio 1.1 (0.9-2) 04/19/21 22:52 Urine Color Yellow 04/20/21 00:15 Urine Appearance Turbid (Clear) A 04/20/21 00:15 Urine pH 7.0 (4.5-7.5) 04/20/21 00:15 Ur Specific Leroy 1.031 (1.000-1.030) H 04/20/21 00:15 Urine Protein 2+ (Negative) H 04/20/21 00:15 Urine Glucose (UA) 3+ (Negative) H 04/20/21 00:15 Urine Ketones Negative (Negative) 04/20/21 00:15 Urine Blood 2+ (Negative) H 04/20/21 00:15 Urine Nitrite Negative (Negative) 04/20/21 00:15 Urine Bilirubin Negative (Negative) 04/20/21 00:15 Urine Urobilinogen Negative (Negative) 04/20/21 00:15 Ur Leukocyte Esterase 2+ (Negative) H 04/20/21 00:15 Urine WBC (Auto) >30 /hpf (0-5) H 04/20/21 00:15 Urine RBC (Auto) 10-30 /hpf (0-4) H 04/20/21 00:15 U Hyaline Cast (Auto) 1-5 /lpf (0-5) 04/20/21 00:15 U Epithel Cells (Auto) >30 /lpf (0-5) H 04/20/21 00:15 Urine Bacteria (Auto) 2+ (Negative) H 04/20/21 00:15 Urine Yeast Not Reportable 04/20/21 00:15 SARS-CoV-2, RNA, NAAT NEGATIVE (NEGATIVE) 04/19/21 Unknown Blood Type A Positive 04/19/21 22:52 Antibody Screen NEGATIVE 04/19/21 22:[address] 04/19/21 22:34 CT head/brain wo con CLINICAL HISTORY: Stroke Like Symptoms . Increased confusion and slurred speech COMPARISON STUDY: 04/05/2015 CT DOSE: TECHNIQUE: Standard CT of the Brain was performed without IV contrast. A dose lowering technique was utilized adhering to the principles of ALARA. FINDINGS: Extraaxial space: There is no evidence for subdural hematoma. There are no extra-axial fluid collections. Ventricles and cisterns: The ventricles are mildly dilated bilaterally. There is no evidence for midline shift or mass effect. Parenchyma: There is no subarachnoid or intraparenchymal hemorrhage. There is no evidence for an acute infarct or cerebral edema. Old lacunar infarct is seen involving the basal ganglia on the left. There is mild cerebral cortical atrophy and decreased attenuation in the periventricular white matter representing remote small vessel disease. There are no gross mass lesions. Osseous structures: There is no evidence for an acute fracture. The visualized paranasal sinuses are clear. The mastoid air cells are clear bilaterally. Soft tissues: There is no evidence for focal soft tissue swelling. IMPRESSION: 1. No acute intracerebral pathology. 2. Mild cerebral cortical atrophy, remote small vessel disease and old left- sided lacunar infarct. ACT 112: Negative or not required by law. Electronically signed by: Osman Holly M.D. 04/19/2021 11:05 PM Head CTA 04/19/21 22:34 CT angio head w con CLINICAL HISTORY: Stroke Like Symptoms . Confusion and slurred speech COMPARISON STUDY: Noncontrast CT of the brain from 04/19/2021 CT DOSE: 1152.82 mGy.cm TECHNIQUE: CT Angio of the brain was performed.followed by image post processing with coronal, and sagittal MIP reformats. Contrast Volume: Optiray 320, 120 ml FINDINGS: Vascular findings: There is normal enhancement within the internal carotid arteries bilaterally. There is atherosclerotic calcification of the intracranial portion of the internal carotid arteries bilaterally. There is mild diffuse narrowing of the basilic artery with no focal stenosis identified. There is normal enhancement noted within the anterior, middle and posterior cerebral arteries. Nonvascular findings: There is mild cerebral cortical atrophy and evidence for remote small vessel disease. There is no evidence for an acute infarct or cerebral edema. IMPRESSION: Essentially negative CT angiogram of the brain with contrast. ACT 112: Negative or not required by law. Electronically signed by: Osman Holly M.D. 04/19/2021 11:22 PM Neck CTA 04/19/21 22:34 CT angio neck with con CLINICAL HISTORY: Stroke Like Symptoms . Confusion and slurred speech COMPARISON STUDY: No previous studies for comparison. CT DOSE: TECHNIQUE: CT Angio of the neck was performed.followed by image post processing with coronal, and sagittal MIP reformats.. Stenosis assessment by NASCET criteria. Contrast Volume: Optiray 320, 120 ml FINDINGS: Vascular findings: Right common carotid artery: Patent without significant stenosis. Right internal carotid artery: Patent without significant stenosis.Atherosclerotic calcification is seen at the origin of the internal carotid artery. There is also calcification of the intracranial portion of the internal carotid artery. Right vertebral artery: Patent without significant stenosis. Left common carotid artery: Patent without significant stenosis. Left internal carotid artery: Patent without significant stenosis.There is calcification of the intracranial portion of the internal carotid artery. Left vertebral artery: Patent without significant stenosis. The left vertebral artery is dominant when compared to the right. Nonvascular findings: The parotid and submandibular salivary glands appear normal. There is no enlarged cervical adenopathy noted. The airway appears patent. The thyroid gland appears within normal limits. The lung apices appear within normal limits. Impression: Essentially negative CT angiogram of the neck with contrast. ACT 112: Negative or not required by law. Electronically signed by: Osman Holly M.D. 04/19/2021 11:19 PM Code Status & VTE Plan Code Status Full code VTE Prophylaxis Plan VTE Prophylaxis will be ordered: Yes PG Care Time/CCT Total # of Minutes Spent Total Time Spent with Patient: Total time spent is greater than 50% in coordination of care (as documented) at patient's floor/unit and/or counseling patient: Coding Level of Care Code INT OBSERVATION CARE 70M LVL 3 Diagnoses Cerebrovascular accident I63.9 CVA mechanism: unspecified Stented coronary artery Z95.5 H/O: stroke with residual effects I69.30 Diabetes mellitus type 2, uncontrolled E11.65 CAD (coronary artery disease) I25.10 Hyperlipidemia E78.5 Hypertension I10 Lupus L93.0 (1) Cerebrovascular accident CVA mechanism: unspecified Qualified Code(s): I63.9 - Cerebral infarction, unspecified
[2021-04-20] MEDS ORDERED: GLUCAGON FOR INJ 1 MG VIAL SQ PRN (02:21)
[2021-04-20] MEDS ORDERED: GLUCOSE 10 TABS/TUBE PO PRN (02:21)
[2021-04-20] MEDS ORDERED: PHARMACIST DISCHARGE MED REC CONSULT PRN (02:21)
[2021-04-20] MEDS ORDERED: CARBOHYDRATES FOR HYPOGLYCEMIA PO PRN (02:21)
[2021-04-20] MEDS ORDERED: ALBUTEROL HFA 8 GM INHALER INH PRN (02:21)
[2021-04-20] MEDS ORDERED: NSS + 20MEQ KCL 20 MEQ/1,000 ML BAG IV SCH (02:21)
[2021-04-20] MEDS ORDERED: GLUCOSE 40% GEL 15 GM TUBE PO PRN (02:21)
[2021-04-20] MEDS: INSULIN ASPART PER UNIT SC SCH ×5 (03:15→21:12)
[2021-04-20] MEDS ORDERED: LORazepam 1 MG/2 ML VIAL IV STA (03:57)
[2021-04-20 06:15] LABS: Troponin I 0.03 ng/ml (0-0.04)
[2021-04-20 06:17] LABS: BUN Creatinine Ratio 22.9 (10-20); Calcium 9.2 mg/dl (8.5-10.1); Chol HDL Ratio 3.1 (0-5); Creatinine Clr Calc Pharmacy 45.4 ml/min; Est GFR (African American) 77.2 ml/min; Est GFR (Non-African American) 66.6 ml/min; Potassium 3.6 mmol/L (3.5-5.1)
--- NOTE | 2021-04-20 06:40 | Ultrasound Report ---
US venous doppler LE RT HISTORY: 80 years-old Female RLE swelling acute pain and swelling of the right lower extremity COMPARISON: Duplex venous Doppler 07/01/2020 TECHNIQUE: Multiple real-time sonographic images of the right lower extremity deep venous structures were obtained assessing grayscale appearance, color and spectral flow. FINDINGS: Normal flow, compressibility, phasicity and augmentation. IMPRESSION: No sonographic evidence of deep venous thrombosis. ACT 112: Negative or not required by law. The above report was generated using voice recognition software. It may contain grammatical, syntax o r spelling errors. Electronically signed by: Jarad Valdez M.D. 04/20/2021 6:38 AM
[2021-04-20 06:46] LABS: Estimated Average Glucose 240 mg/dl
--- NOTE | 2021-04-20 07:16 | Magnetic Resonance Report ---
MR brain wo con HISTORY: 80 years-old Female CVA acute strokelike symptoms. History of chronic lacunar infarcts left basal ganglia and left cerebellum. COMPARISON: Head CT 04/19/2021, brain MRI 12/18/2019 TECHNIQUE: Multiplanar multisequence MRI of the brain was obtained without the use of IV contrast. FINDINGS: Director Child localizer images demonstrate no gross extracranial abnormality. No restricted diffusion to sugg est acute or subacute infarct. The midline structures appear unremarkable. Partially empty sella. No acute intracranial hemorrhage, midline shift, abnormal extra axial collection, hydrocephalus or intra cranial mass. Age-related involutional changes. Confluent T2/FLAIR hyperintense foci are again noted within the subcortical, deep and periventricular white matter. Chronic lacunar infarcts within the le ft basal ganglia, left pontine brainstem and left cerebellar hemisphere redemonstrated. The cerebral venous sinuses and visualized major arterial flow voids appear patent. Mastoid air cells and paranasal sinuses are generally clear. The skull, orbits and soft tissues are unremarkable. IMPRESSION: 1. Mildly motion degraded exam without acute intracranial abnormality. No acute or subacute infarct. 2. Age-related involutional changes with chronic microvascular ischemic disease. 3. Chronic left basal ganglia, pontine and left cerebellar lacunar infarcts redemonstrated. ACT 112: Negative or not required by law. The above report was generated using voice recognition software. It may contain grammatical, syntax o r spelling errors. Electronically signed by: Jarad Valdez M.D. 04/20/2021 7:15 AM
[2021-04-20] MEDS ORDERED: PHARMACY GLYCEMIC MGMT CONSULT PRN (07:37)
[2021-04-20] MEDS ORDERED: INSULIN GLARGINE SOLOSTAR 100 UNITS/ML 3 ML PEN SC STA (09:03)
[2021-04-20] MEDS: ASPIRIN 81 MG ECTAB PO SCH (10:01)
[2021-04-20] MEDS: CHOLECALCIFEROL 1,000 UNITS 25 MCG TAB PO SCH (10:01)
[2021-04-20] MEDS: DULoxetine HCL 20 MG CAP PO SCH (10:01)
[2021-04-20] MEDS: METOPROLOL SUCC 50MG EXT REL TAB PO SCH (10:01)
[2021-04-20] MEDS: MIRABEGRON ER 25 MG TAB PO SCH (10:02)
--- NOTE | 2021-04-20 10:45 | XCELERA ---
[id number] \\[id number]_[id number]
[2021-04-20] MEDS: HEPARIN SOD 5,000 UNIT/0.5 ML VIAL SQ SCH ×2 (11:17→21:16)
[2021-04-20] MEDS: cefTRIAXone SODIUM 1,000 MG in DEXTROSE 5% 50 ML IV SCH (11:18)
--- NOTE | 2021-04-20 11:21 | Pharmacy Report ---
Pharmacy Glycemic Short Note 2 - Date of Service April 20, 2021 - Glycemic Short BSG Results (Last 24 hours): 04/19/21 04/19/21 04/20/21 22:49 22:52 02:12 Glucose 380 H* POC Glucose 452 H* 342 H* 04/20/21 04/20/21 05:35 08:57 Glucose 154 H POC Glucose 91 OUTPATIENT ANTIDIABETIC REGIMEN: * Toujeo 50 units SQ QAM ASSESSMENT: * 80 y/o F admitted for possible CVA. Patient has history of Type 2 diabetes managed at home on once daily basal Toujeo insulin. * On admission patient's blood sugars were elevated above 300 mg/dl. * Fasting BSG today = 91 mg/dl. Patient is currently NPO. Lower dose of basal Lantus ordered this AM. * Novolog ordered based on wt and stress between 2 and 3. PLAN FOR INPATIENT GLYCEMIC CONTROL: * Basal insulin * Lantus 30 units SQ x 1 today AM * Bolus insulin * NovoLog per scale ACHS or Q6hrs while NPO * Goal Range: Low 110 mg/dL - High 140 mg/dL * Correction Factor: 30 mg/dL/unit * Nutritional / Prandial insulin per carb ratio of 1 unit per 9 grams CHO consumed PLAN FOR DISCHARGE: * TBD
--- NOTE | 2021-04-20 14:09 | Electrocardiogram Report ---
Test Reason : Blood Pressure : / mmHG Vent. Rate : 080 BPM Atrial Rate : 080 BPM P-R Int : 194 ms QRS Dur : 086 ms QT Int : 374 ms P-R-T Axes : 024 -17 071 degrees QTc Int : 431 ms Normal sinus rhythm with sinus arrhythmia Normal ECG When compared with ECG of 20-JUN-2020 00:30, No significant change was found Confirmed by Williams Shultz ([id number]) on 04/20/2021 2:09:30 PM Referred By: REFERRED SELF Confirmed By:Williams Shultz
--- NOTE | 2021-04-20 20:09 | Communication Note ---
Date of Service: April 20, 2021 Patient seen and examined the same day Discussed with her daughter. In chair, couldn't get up, losing control with urine and urinating on herself. Consistent symptoms of UTI. Sudden onset confusion the same day around 5:30-7:30pm. UA consistent with UTI Blood cultures Ceftriaxone 1g IV daily Brain MRI negative - in setting of alterantive explanation of symptoms will discontinue neurolog consult
[2021-04-20] MEDS: DEXTROSE 50% 50 ML SYRINGE IV PRN (20:29)
[2021-04-20] MEDS: ATORVASTATIN 40 MG TAB PO SCH (21:19)
[2021-04-21] MEDS: LACTATED RINGER'S 1,000 ML IV SCH ×3 (00:16→15:44)
[2021-04-21] MEDS: DEXTROSE 50% 50 ML SYRINGE IV PRN ×2 (00:20→04:29)
[2021-04-21] MEDS: INSULIN ASPART PER UNIT SC SCH ×6 (00:24→20:19)
[2021-04-21 06:16] LABS: Basophils # (auto) 0.02 K/uL (0-0.2); Basophils % (auto) 0.2 %; Eosinophils # (auto) 0.23 K/uL (0-0.5); Eosinophils % (auto) 2.1 %; Hematocrit (blood only) 37.7 % (37-47); Immature Granulocytes # (auto) 0.04 K/uL (0.00-0.02); Immature Granulocytes % (auto) 0.4 %; Lymphocytes # (auto) 2.62 K/uL (1.2-3.4); Lymphocytes % (auto) 23.5 %; Mean Corpuscular Hemoglobin 29.1 pg (25-34); Mean Corpuscular Hgb Conc 31.8 g/dL (32-36); Mean Corpuscular Volume 91.5 fL (80-100); Mean Platelet Volume 9.7 fL (7.4-10.4); Monocytes # (auto) 1.17 K/uL (0.11-0.59); Monocytes % (auto) 10.5 %; Neutrophils # (auto) 7.07 K/uL (1.4-6.5); Neutrophils % (auto) 63.3 %; Platelet Count 264 K/uL (130-400); RDW Coefficient of Variation 14.3 % (11.5-14.5); RDW Standard Deviation 47.8 fL (36.4-46.3); Red Blood Count 4.12 M/uL (4.2-5.4); White Blood Count 11.15 K/uL (4.8-10.8)
[2021-04-21 06:33] LABS: BUN Creatinine Ratio 28.1 (10-20); Calcium 8.8 mg/dl (8.5-10.1); Creatinine Clr Calc Pharmacy 42.9 ml/min; Est GFR (African American) 70.9 ml/min; Est GFR (Non-African American) 61.2 ml/min; Potassium 3.8 mmol/L (3.5-5.1)
[2021-04-21] MEDS: cefTRIAXone SODIUM 1,000 MG in DEXTROSE 5% 50 ML IV SCH (07:59)
[2021-04-21] MEDS: ASPIRIN 81 MG ECTAB PO SCH (10:33)
[2021-04-21] MEDS: METOPROLOL SUCC 50MG EXT REL TAB PO SCH (10:34)
[2021-04-21] MEDS: DULoxetine HCL 20 MG CAP PO SCH (10:34)
[2021-04-21] MEDS: MIRABEGRON ER 25 MG TAB PO SCH (10:34)
[2021-04-21] MEDS: CHOLECALCIFEROL 1,000 UNITS 25 MCG TAB PO SCH (10:34)
[2021-04-21] MEDS: HEPARIN SOD 5,000 UNIT/0.5 ML VIAL SQ SCH ×2 (10:35→20:13)
--- NOTE | 2021-04-21 13:48 | Hospitalist Progress Note ---
Date of Service April 21, 2021 Assessment & Plan (1) UTI (urinary tract infection): Plan: Suspect this is the cause of her acute confusion with symptoms suggestive of this. Much improved after antibiotics started. Continue ceftriaxone 1 g IV daily pending for urine culture -pinpoint growth at this time Blood cultures negative at 24 hours Repeat PT and OT assessments tomorrow No stroke (2) H/O: stroke with residual effects: Plan: See above CT of head shows old left basal ganglia infarct (3) Stented coronary artery: Plan: Stented coronary artery/CAD/hypertension- Hold on medications for now until cleared by speech (4) CAD (coronary artery disease): Plan: See above (5) Hypertension: Plan: See above (6) Diabetes mellitus type 2, uncontrolled: Plan: Hemoglobin A1c 10.0 Consult pharmacy for glycemic control (7) Hyperlipidemia: Plan: Continue atorvastatin 40 mg p.o. at bedtime (8) Lupus: Plan: Noted history of this however not on any medication no current symptoms. (9) Gait disturbance: Plan: Repeat PT and OT assessments tomorrow as previously qualified for [facility] based on assessments with her untreated UTI Gabapentin discontinued. (10) Urine incontinence: Plan: Continue mirabegron extended release 50 mg p.o. daily Plan: VTE Prophylaxis -Heparin 5000 units every 12 hourly Diet -cleared by speech therapy today, started on type 2 diabetes diet Disposition -continued inpatient stay as only just started eating today Admission and Anticipated Discharge Date Admission Date: April 20, 2021 Subjective Much improved today. More alert. Less confused. Previously qualified for [facility] however this was based on her mobility with an untreated UTI. I suspect she can improve on this tomorrow. In all likelihood can go home. Physical Exam Constitutional: WD/WN, vitals as above Eyes: PERRL, conjunctivae normal, anicteric sclerae ENMT: external ear and nose normal, oropharynx normal Neck: trachea midline, no thyromegaly Respiratory: normal respiratory effort, lungs clear to auscultation Cardiovascular: RRR, no murmur, no edema Gastrointestinal (Abdomen): Inspection/Auscultation: normal bowel sounds Percussion/Palpation: abdomen soft; abdomen nontender, no guarding and abdomen not rigid Musculoskeletal: no cyanosis or clubbing, extremities motor strength 5/5 Neurologic: CN's II-XI intact bilaterally, moves all extremities and awake; no focal motor deficits and not confused Psychiatric: A+Ox3, euthymic affect Results & Data Results & Data ([facility]) Vital Signs (Past 12 Hours) Vital Signs Temp Pulse Pulse Pulse Resp BP Pulse Ox 04/21/21 11:41 36.8 C 75 20 110/67 93 04/21/21 07:53 36.4 C L 74 20 116/75 96 04/21/21 06:16 81 04/21/21 02:43 36.6 C 74 16 106/67 95 PG Care Time/CCT Total # of Minutes Spent Total Time Spent with Patient: Total time spent is greater than 50% in coordination of care (as documented) at patient's floor/unit and/or counseling patient: Coding Level of Care Code 09167 Subseq Hosp Care Lvl 2 Diagnoses H/O: stroke with residual effects I69.30 Stented coronary artery Z95.5 CAD (coronary artery disease) I25.10 Hypertension I10 Diabetes mellitus type 2, uncontrolled E11.65 Hyperlipidemia E78.5 Lupus L93.0 UTI (urinary tract infection) N39.0 Gait disturbance R26.9 Urine incontinence R32
--- NOTE | 2021-04-21 16:35 | XRay Report ---
XR chest 2V PA/lateral CLINICAL HISTORY: Cough, ?PNA TECHNIQUE: AP and lateral radiographs of the chest was obtained. Comparison: Comparison is made to rib series to 05/22/2021 FINDINGS: No lines and tubes are seen. Cardiomegaly is noted. Diffuse emphysematous and scarring changes are se en. No evidence of airspace opacity. No evidence of pleural effusion or pneumothorax. IMPRESSION: No acute abnormality and in particular no evidence of pneumonia. Chronic emphysema and cardiomegaly. ACT 112: Negative or not required by law. Electronically signed by: Jesus Tolentino M.D. 04/21/2021 4:33 PM
[2021-04-21] MEDS: ATORVASTATIN 40 MG TAB PO SCH (20:13)
[2021-04-22 06:43] LABS: BUN Creatinine Ratio 29.1 (10-20); Calcium 8.8 mg/dl (8.5-10.1); Creatinine Clr Calc Pharmacy 48.4 ml/min; Est GFR (African American) 81.9 ml/min; Est GFR (Non-African American) 70.7 ml/min
[2021-04-22] MEDS: CHOLECALCIFEROL 1,000 UNITS 25 MCG TAB PO SCH (07:59)
[2021-04-22] MEDS: cefTRIAXone SODIUM 1,000 MG in DEXTROSE 5% 50 ML IV SCH (07:59)
[2021-04-22] MEDS: ASPIRIN 81 MG ECTAB PO SCH (07:59)
[2021-04-22] MEDS: METOPROLOL SUCC 50MG EXT REL TAB PO SCH (07:59)
[2021-04-22] MEDS: DULoxetine HCL 20 MG CAP PO SCH (07:59)
[2021-04-22] MEDS: MIRABEGRON ER 25 MG TAB PO SCH (07:59)
[2021-04-22] MEDS: INSULIN ASPART PER UNIT SC SCH ×2 (08:00→12:10)
[2021-04-22] MEDS: HEPARIN SOD 5,000 UNIT/0.5 ML VIAL SQ SCH (08:01)
[2021-04-22] MEDS ORDERED: INSULIN GLARGINE SOLOSTAR 100 UNITS/ML 3 ML PEN SC SCH (09:00)
--- NOTE | 2021-04-22 12:45 | Pharmacy Report ---
Pharmacy Glycemic Short Note 2 - Date of Service April 22, 2021 - Glycemic Short BSG Results (Last 24 hours): 04/21/21 04/21/21 04/22/21 16:42 20:10 05:53 Glucose 139 H POC Glucose 197 H 179 H 04/22/21 04/22/21 07:38 11:31 Glucose POC Glucose 146 H 166 H OUTPATIENT ANTIDIABETIC REGIMEN: * Toujeo 50 units SQ QAM ASSESSMENT: 04/22/21: * Sofia received a total of 7 units of insulin yesterday (all bolus). BSGs: 71, 84, 197, 179 mg/dL * BSGs trending upward throughout the day. Basal insulin was previously held due to hypoglycemia with her last dose being 30 units administered on 04/20 AM (40% dose reduction compared to home dose) * Will restart basal insulin at a further reduced dose and titrate as needed * No changes to novolog Background: * 80 y/o F admitted for possible CVA. Patient has history of Type 2 diabetes managed at home on once daily basal Toujeo insulin. * On admission patient's blood sugars were elevated above 300 mg/dl. * Fasting BSG today = 91 mg/dl. Patient is currently NPO. Lower dose of basal Lantus ordered this AM. * Novolog ordered based on wt and stress between 2 and 3. PLAN FOR INPATIENT GLYCEMIC CONTROL: * Basal insulin * Lantus 15 units SQ - 04/22 AM * Reassess dose on 04/23 * Bolus insulin * NovoLog per scale ACHS or Q6hrs while NPO * Goal Range: Low 110 mg/dL - High 140 mg/dL * Correction Factor: 30 mg/dL/unit * Nutritional / Prandial insulin per carb ratio of 1 unit per 11 grams CHO consumed PLAN FOR DISCHARGE: * A1c of 10% (from 04/20/21) is above goal * It is difficult to assess appropriateness of home regimen at this time. Although A1c is quite elevated, patient has required significantly less insulin while admitted to the hospital (only 7 units total on 04/21/21 -minimal PO intake during this time). Doses to be determined once additional BSG data avail. * Patient was evaluated by our CDE. Recommendations are as follows: * Likely is going to need assistance at home to ensure appropriate isulin use/administration. * SMBG more frequently- check 3x/day- fasting/before breakfast, before dinner, and bedtime.
--- NOTE | 2021-04-22 15:31 | Discharge Summary ---
Date of Service April 22, 2021 Admission HPI Per Admitting Provider The patient is an 80-year-old female with a past medical history including stented coronary artery, Tahira glabrata infection, venoocclusive disease, lumbar spinal stenosis, CVA with residual effects, diabetes mellitus,, closed L5 vertebral fracture, CAD, gout, hyperlipidemia, hypertension, recurrent UTI, vitamin D deficiency and lupus. Patient presents with expressive aphasia/word salad that began at 5:30 PM, well outside the time interval potential treatment with thrombolytics. CTA of the head without contrast shows an old left basal ganglia infarct. CTA head and neck were both negative. Patient was assessed by [facility] neuro and recommendation was for no thrombolytic treatment Significant laboratories: Sodium 128, glucose 380, magnesium 1.5. Patient was COVID-19 negative Principal Diagnosis UTI Low sodium level (Hyponatremia) Discharge Exam Constitutional WD/WN, vitals as above ENMT external ear and nose normal, oropharynx normal Neck trachea midline, no thyromegaly Respiratory normal respiratory effort, lungs clear to auscultation Cardiovascular RRR, no murmur, no edema Gastrointestinal (Abdomen) Inspection/Auscultation: normal bowel sounds Percussion/Palpation: abdomen soft; abdomen nontender, no guarding and abdomen not rigid Musculoskeletal no cyanosis or clubbing, extremities motor strength 5/5 Neurologic CN's II-XI intact bilaterally, moves all extremities and awake; no focal motor deficits and not confused Psychiatric A+Ox3, euthymic affect Discharge Data Allergies Allergy/AdvReac Type Severity Reaction Status Date / Time dapsone Allergy Intermediate Rash Verified 04/19/21 23:42 Sulfa (Sulfonamide Allergy Mild Unknown Verified 04/19/21 23:42 Antibiotics) latex Allergy Unknown Unknown Verified 04/19/21 23:42 ciprofloxacin AdvReac Intermediate "i blew up Verified 04/19/21 23:42 like a balloon" per pt adhesive AdvReac Unknown Unknown Verified 04/19/21 23:42 metronidazole [From Flagyl] AdvReac Unknown Unknown Verified 04/19/21 23:42 red dye AdvReac Unknown Unknown Verified 04/19/21 23:42 Consultations 04/19/21 23:27 ED Decision to Admit Stat Ordered Studies 04/19/21 22:34 CT angio head w con Stat IMPRESSION: Essentially negative CT angiogram of the brain with contrast. CT angio neck with con Stat Impression: Essentially negative CT angiogram of the neck with contrast. CT head/brain wo con Stat IMPRESSION: 1. No acute intracerebral pathology. 2. Mild cerebral cortical atrophy, remote small vessel disease and old left- sided lacunar infarct. 04/20/21 03:14 MR brain wo con Stat IMPRESSION: 1. Mildly motion degraded exam without acute intracranial abnormality. No acute or subacute infarct. 2. Age-related involutional changes with chronic microvascular ischemic disease. 3. Chronic left basal ganglia, pontine and left cerebellar lacunar infarcts redemonstrated. 04/20/21 03:15 US venous doppler LE RT Urgent IMPRESSION: No sonographic evidence of deep venous thrombosis. Diabetes Follow up Diabetes Follow-up Needed for HgbA1c >9% Hospital Course (1) UTI (urinary tract infection): Sofia Carpenter is an 80 year old female admitted to [facility] from April 20 - 2021 due to confusion and expressive aphasia. Initial concern for stroke however subsequent brain MRI was negative for this. Symptoms over the following 24 hours appeared more consistent with infectious/metabolic etiology. Urinalysis suggestive of an infection and she was started on ceftriaxone. Subsequent urine culture grew mixed christina and no growth in blood cultures. She will finish a course of ciprofloxacin on discharge. Na 128 mmol/L on admission. This improved with IV maintenance NSS. Lisinopril was discontinued fur to low normal blood pressures and hyponatremia. Na 137 mmol/L on discharge. Recommend repeating labs in approximately 1 week to monitor this. Initial Wells catheter inserted was removed on day of discharge. She is urinating normally following removal of Wells catheter. Gabapentin has been discontinued due to ambulatory dysfunction. Consider restarting at night if worsening peripheral neuropathy however she has done well off this in the hospital. Doubtful this was the primary cause of her hospitalization. She was requiring significantly less insulin than her home dosing therefore Toujeo was reduced from 50 to 15 units daily. She is being discharged to [facility] for ongoing physical rehabilitation (2) Hyponatremia: (3) H/O: stroke with residual effects: (4) Stented coronary artery: (5) CAD (coronary artery disease): (6) Hypertension: (7) Diabetes mellitus type 2, uncontrolled: (8) Hyperlipidemia: (9) Lupus: (10) Gait disturbance: (11) Urine incontinence: Total Time Total Time Spent Total Time Spent (In Minutes): 35 Discharge Plan Discharge Items Patient Disposition: Transfer Inpatient Rehab Fac Reason For Visit: Stroke-like symptoms Discharge Diagnosis: UTI Low sodium level (Hyponatremia) Activity: Resume your previous activity Non-emergency contact: Primary Care Provider Call non-emergency contact if: you have any medication questions and your symptoms worsen Follow-up/Referrals: Markus Castillo MD [Primary Care Provider] - Diet: Carb Consistent or DM2 Addtl Attending Provider Instructions: You are admitted to [facility] from April 20 - 2021 due to confusion and expressive aphasia. Initial concern for stroke however subsequent brain MRI was negative for this. Symptoms over the following 24 hours appeared more consistent with infectious/metabolic etiology. Urinalysis suggestive of an infection and he was started on ceftriaxone (antibiotic). However subsequent urine culture showed mixed christina and no growth in blood cultures. Unclear if your symptoms are secondary to a urine tract infection versus low sodium levels (hyponatremia). Recommend continuing on antibiotics as prescribed below for treatment of UTI. Your sodium levels corrected with intravenous fluids. There are multiple possible causes of having low sodium levels which were not worked up during this admission as your sodium levels returned to normal. Do not recommend supplementation as this can have a paradoxical worsening effect depending on the cause. Lisinopril has been discontinued as this can cause low sodium level. Recommend repeat lab tests in approximately 1 week with your PCP to monitor this. Initial Wells catheter insertion was removed on day of discharge. She is urinating normally following removal of Wells catheter. Gabapentin has been discontinued due to ambulatory dysfunction. Consider restarting if night if worsening peripheral neuropathy however she has done well off this in the hospital. Doubtful this was the primary cause of your hospitalization. Your diabetes presents a challenge since your HbA1C is high suggesting poor control of your glucose values however you are requiring significantly less insulin during your hospital stay. This suggests you have a high carbohydrate diet at home. 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 It is recommended you can have further physical therapy and you are now medically stable to go to [facility] for this. Kind regards, Dr. Rolando Jaimes Pending Studies at Discharge: No Stand-Alone Forms: My [facility] Skilled Items Patient informed of condition?: Yes DNR: No Discharge Level of Care: Acute rehab Communicable Disease: No Discharge Prognosis: Stable Lines: None Urinary Catheter: No Medications and DC Order Prescriptions: Continued albuterol sulfate [Proventil HFA] 90 mcg/actuation HFA aerosol inhaler 1 - 2 inh INHALATION Q4H PRN (Reason: Shortness Of Breath Or Wheezing) Qty: 3 RF: 3 (DME) pen needle, diabetic [BD Ultra-Fine Cris Pen Needle] 32 gauge x 5/32" needle See Rx Instructions .ROUTE .MEDSUPPLY Qty: 100 RF: 3 duloxetine 40 mg capsule,delayed release(DR/EC) 40 mg PO QAM 90 Days Qty: 90 RF: 1 metoprolol succinate [Toprol XL] 50 mg tablet extended release 24 hr 50 mg PO QAM Qty: 90 RF: 3 Myrbetriq 50 mg tablet extended release 24 hr 50 mg PO DAILY Qty: 90 RF: 1 lidocaine 5 % adhesive patch,medicated 1 patch topical DAILY PRN (Reason: pain (scale score 7-10)) Qty: 30 RF: 0 cranberry 500 mg capsule 1,000 mg PO QAM RF: 0 coenzyme Q10 200 mg capsule 400 mg PO QAM RF: 0 aspirin [Aspirin Low Dose] 81 mg tablet,delayed release (DR/EC) 81 mg PO QAM RF: 0 nystatin-triamcinolone 100,000-0.1 unit/gram-% ointment 1 applic topical BID Qty: 30 RF: 1 (DME) lancets [TRUEplus Lancets] 30 gauge misc See Rx Instructions .Route Qty: 100 RF: 3 (DME) Truetrack Test Strip See Rx Instructions .Route Qty: 100 RF: 3 cholecalciferol (vitamin D3) [Vitamin D3] 50 mcg (2,000 unit) Capsule 2,000 unit PO QAM RF: 0 Women's One Daily 18 mg iron-400 mcg-500 mg Ca Tablet 1 tab PO QAM RF: 0 biotin 10 mg Tablet 10 mg PO QAM RF: 0 Probiotic 10 billion cell Capsule 10,000 mmu cells PO QAM RF: 0 meclizine 25 mg Tablet 25 mg PO DAILY PRN (Reason: Dizziness) RF: 0 atorvastatin [Lipitor] 40 mg tablet 40 mg PO HS RF: 0 ondansetron 4 mg tablet,disintegrating 4 mg PO Q6 PRN (Reason: nausea and vomiting) Qty: 14 RF: 0 Changed Toujeo SoloStar U-300 Insulin 300 unit/mL (1.5 mL) insulin pen 15 unit SUBCUT QAM Qty: 0 RF: 0 Discontinued lisinopril 40 mg tablet 40 mg PO QAM Qty: 90 RF: 3 gabapentin 100 mg capsule 200 mg PO BID 90 Days Qty: 360 RF: 1 Discharge Orders: Discharge Order (Routine); Ordered 04/22/21 Ordered By: Rolando Jaimes Admission Data Admit Date/Time: 04/20/21 00:53 Attending Provider: Rolando Jaimes Admit Provider: Brandin Collins Primary Care Provider: Markus Castillo V. Other Providers: [facility] ; Brandin Collins Coding Level of Care Code 87438 OBS Care - Discharge Diagnoses UTI (urinary tract infection) N39.0 H/O: stroke with residual effects I69.30 Stented coronary artery Z95.5 CAD (coronary artery disease) I25.10 Hypertension I10 Diabetes mellitus type 2, uncontrolled E11.65 Hyperlipidemia E78.5 Lupus L93.0 Gait disturbance R26.9 Urine incontinence R32 Hyponatremia E87.1
== END 2021-04-22 16:40 ==
LOC: ED 22:23 → EDINP 22:23 → SUATTDRO 04-20 00:53 → 2W 04-20 01:54

== ENCOUNTER 2023-02-06 15:22 | Inpatient (IN) ==
[2023-02-06] MEDS ORDERED: SODIUM CHLORIDE 0.9% 500 ML IV SCH (15:30)
--- NOTE | 2023-02-06 15:35 | Emergency Department Note ---
Impression & Plan Left leg weakness, Lumbar contusion, Fall, Hypomagnesemia ED Provider Note NAME: DALY BEATTY AGE: 82 SEX: F : 1940 ARRIVES VIA: Ambulance INFORMANT: Patient, EMS ED PROVIDER(S): Eliecer Porras DO CHIEF COMPLAINT: Weakness HPI: The patient is an 82-year-old female who presented to the emergency department for an evaluation of weakness. The patient noticed left lower extremity weakness over the course of the last few days. She states that she was having trouble ambulating. Normally she uses a walker. She had a fall recently where she landed directly on her buttocks. She did complain of some back pain initially. She denies having any headache or loss of conscious. She denies having any fevers or chills. She does have a history of a stroke in the past which affected her right side. She states that she has a history of diabetes. She has been compliant with her outpatient medication regimen but currently does not take a blood thinner. The patient does take aspirin. 911 was called today because of the patient's ongoing symptoms. ROS: See above HPI for pertinent positives & negatives. A total of 10 systems reviewed and were otherwise negative. PAST MEDICAL HISTORY: See Below PAST SURGICAL HISTORY: See Below FAMILY HISTORY: See Below SOCIAL HISTORY: See Below HOME MEDICATIONS: See Below ALLERGIES: See Below VITALS: See Below PHYSICAL EXAMINATION: GENERAL: Patient is awake alert in no acute distress patient is resting comfortably and showing no signs of anxiety EYES: The conjunctivae are clear. The pupils are round and reactive. EARS, NOSE, MOUTH AND THROAT: The nose is without any evidence of any deformity. NECK: The neck is nontender and supple. RESPIRATORY: Normal respiratory effort is noted there is no evidence of wheezing rhonchi or rales CARDIOVASCULAR: Regular rate and rhythm noted there no murmurs rubs or gallops normal S1 normal S2. GASTROINTESTINAL: The abdomen is soft. Abdomen is nontender. MUSCULOSKELETAL/EXTREMITIES: There is no evidence of gross deformity full range of motion is noted in the hips and shoulders. SKIN: There is no obvious evidence of any rash. There are no petechiae, pallor or cyanosis noted. NEUROLOGIC: Patient is awake alert and oriented x3. There was a left-sided facial droop noted. Speech was clear. The patient is unable to lift the left leg off the bed for an extended period of time. MEDICAL DECISION MAKING: The patient is an 82-year-old female who presented to the emergency department for an evaluation of left leg weakness. The patient has had progressive weakness of her left leg. The patient states that she originally had a fall she thinks it was because of the leg but ever since that time she has been having increasing weakness in the left leg. She does have a history of a stroke in the past. This affected her right side. She presented today with left leg weakness and appears to also have a facial droop. She states that this is a new finding. The patient had no acute findings on CT of the brain. I discussed the patient's laboratory and radiographic studies with her. She does have many risk factors for vascular disease as well as history of stroke. For this reason I do feel the patient may benefit from inpatient workup further. I will discuss her condition with the on-call hospitalist. Triage Nursing notes reviewed. Prior medical records reviewed Vital Signs: reviewed and remarkable for elevated blood pressure. Differential diagnosis: Infection, dehydration, metabolic abnormality, hypo/hyperglycemia, electrolyte disturbance, anemia, hypoxia, cardiac sources, intracerebral event, toxicologic, neurologic, as well as other pathologies. ER treatment provided: See below Diagnostics interpreted by me: ECG: EKG was obtained in the emergency department. My interpretation is sinus rhythm at 62 bpm. There was a first-degree AV block noted. LVH was noted by voltage criteria. There was no acute ST segment abnormalities noted. This was compared to a tracing from August 17, 2022. No changes were noted Cardiac Monitoring: An order was placed for continuous cardiac monitoring. The monitor shows a rate of 59 bpm with sinus bradycardia. Laboratory studies: As stated above and show below. Imaging studies: See below. Radiographic imaging was reviewed by myself Consultation(s): Dr. Jaimes was notified about the patient. Past Med/Surg History Medical History Hypertension Contact dermatitis Chronic cough Rash Herpes zoster, ocular Contusion of leg, left Gross hematuria Physical deconditioning Expressive aphasia UTI (urinary tract infection) Chronic diarrhea Spinal stenosis of lumbar region H/O: stroke with residual effects Cerebrovascular disease Family history of dementia Neurogenic claudication due to lumbar spinal stenosis CAD (coronary artery disease) Arm DVT (deep venous thromboembolism), acute Mitral regurgitation Recurrent UTI Hx of renal calculi C. difficile colitis Lupus Surgical History Stented coronary artery History of lithotripsy S/P cardiac catheterization Hx of cholecystectomy Family History Mother Alzheimer disease Hypertension Brother Diabetes Father Hypertension Sister Lung cancer Other Family history non-contributory Stroke Social History Smoking Status: Never smoker Second Hand Exposure: No; Do You Dip or Chew Tobacco: No; Hx Alcohol Use: No Hx Substance Use: No Preferred Language: Faroese Communication Ability: Effective Visual Impairment: No Limitations Hearing Ability: Normal Flooring Machine Feeder Required: No Beliefs That Will Affect Care: None marital status: / Current Living Situation: Family current occupational status: retired Feels Safe at Home: Yes Childhood Exposure to Second-Hand Smoke: No Dental Care, Regularly: No Physical Activity Frequency: Does not Exercise Seatbelt Use: always Sunscreen Use: No Assistive Devices: Walker Allergies Allergies Allergy/AdvReac Type Severity Reaction Status Date / Time dapsone Allergy Intermediate Rash Verified 02/06/23 17:44 Sulfa (Sulfonamide Allergy Mild Unknown Verified 02/06/23 17:44 Antibiotics) latex Allergy Unknown Unknown Verified 02/06/23 17:44 ciprofloxacin AdvReac Intermediate "i blew up Verified 02/06/23 17:44 like a balloon" per pt adhesive AdvReac Unknown Unknown Verified 02/06/23 17:44 metronidazole [From Flagyl] AdvReac Unknown Unknown Verified 02/06/23 17:44 red dye AdvReac Unknown Unknown Verified 02/06/23 17:44 Home Meds Home Medications Medication Instructions Recorded Confirmed cholecalciferol (vitamin D3) 50 2,000 unit PO QAM 11/11/19 02/06/23 mcg (2,000 unit) capsule (Vitamin D3) multivit-iron 18 mg-folic acid 400 1 tab PO QAM 11/11/19 02/06/23 mcg-calcium 500 mg-minerals tablet (Women's One Daily) aspirin 81 mg tablet,delayed 81 mg PO QAM 08/12/20 02/06/23 release (Kimberly Low Dose Aspirin) Lactobacil.acidophilus-Bifido.animalis 1 cap PO DAILY 08/17/22 02/06/23 5 billion cell sprinkle capsule (Probiotic) vit C 250 mg-vit E 90 mg-zinc 40 1 tab PO BID 08/17/22 02/06/23 mg-copper 1 nl-rxddvn-nucfxv capsule (PreserVision AREDS-2) ascorbic acid and sodium 120 1 manny PO DAILY 02/06/23 02/06/23 mg-zinc oxide,gluconate 20 mg lozenges cranberry 400 mg capsule 400 mg PO DAILY 02/06/23 02/06/23 Previous Rx's Medication Instructions Recorded OneTouch Verio Reflect Meter #1 ea 08/05/21 (blood-glucose meter) triamcinolone acetonide 55 mcg 1 spray intranasal DAILY PRN 08/26/21 nasal spray aerosol (Nasacort) Congestion #16.9 mL lidocaine 5 % topical patch 1 patch topical DAILY PRN pain 09/26/21 (scale score 7-10) #30 ea hydroxyzine HCl 10 mg tablet 10 mg PO Q6H PRN dizziness or 01/28/22 vertigo #20 tabs methenamine hippurate 1 gram tablet 1 g PO BID #180 tabs 04/13/22 mirabegron 50 mg tablet,extended 50 mg PO DAILY #90 tabs 04/13/22 release 24 hr (Myrbetriq) atorvastatin 40 mg tablet (Lipitor) 40 mg PO HS #90 tabs 04/24/22 pen needle, diabetic 32 gauge x #400 ea 05/12/22 5/32" (BD Ultra-Fine Cris Pen Needle) diphenoxylate-atropine 2.5 1 tab PO BID PRN diarrhea #180 tabs 07/13/22 mg-0.025 mg tablet (Lomotil) OneTouch Delica Plus Lancet 33 #400 ea 07/28/22 gauge (lancets) vibegron 75 mg tablet (Gemtesa) 75 mg PO DAILY #90 tabs 08/16/22 lisinopril 40 mg tablet 40 mg PO QAM #90 tabs 08/21/22 insulin lispro 100 unit/mL 5 unit (0.05 mL) subcut TID 90 08/29/22 subcutaneous pen (Humalog KwikPen days #15 mL (U-100) Insulin) OneTouch Verio test strips (blood #300 ea 09/07/22 sugar diagnostic) doxazosin 1 mg tablet 1 mg PO DAILY #90 tabs 09/11/22 insulin glargine U-300 conc 300 40 unit (0.1333 mL) subcut QAM 40 12/12/22 unit/mL (1.5 mL) subcutaneous pen units 90 days #12 mL (Toujeo SoloStar U-300 Insulin) duloxetine 60 mg capsule,delayed 60 mg PO QAM 90 days #90 caps 01/04/23 release spironolactone 25 mg tablet 12.5 mg (1/2 x 25 mg) PO DAILY #45 01/31/23 (Aldactone) tabs metoprolol succinate 50 mg 50 mg PO QAM #90 tabs 02/02/23 tablet,extended release 24 hr (Toprol XL) Results & Data (ED) Vital Signs Vital Signs - 24 hr 02/06/23 15:27 02/06/23 15:27 02/06/23 15:27 Temperature 36.5 C Temperature Source Oral Pulse Rate 68 68 Pulse Rate [Apical] Pulse Rhythm Regular Pulse Rhythm [Apical] Pulse Strength [Apical] Respiratory Rate 18 20 Respiratory Effort / Characteristics Respiratory Depth Respiratory Pattern Blood Pressure 188/89 H Blood Pressure [Right Arm] Blood Pressure Mean 122 Blood Pressure Mean [Right Arm] Blood Pressure Position [Right Arm] Pulse Oximetry 95 94 Oxygen Delivery Method Room Air Room Air Room Air Sepsis Recent Fever Within 48 Hours No Sepsis New/Unexplained Change in Mental Status No Sepsis Action Taken by Nursing No Action Required 02/06/23 15:38 02/06/23 15:45 02/06/23 17:09 Temperature Temperature Source Pulse Rate 62 Pulse Rate [Apical] 65 62 Pulse Rhythm Pulse Rhythm [Apical] Regular Regular Pulse Strength [Apical] Normal Normal Respiratory Rate 18 20 Respiratory Effort / Characteristics Non-Labored Spontaneous Non-Labored Spontaneous Respiratory Depth Normal Normal Respiratory Pattern Regular Regular Blood Pressure Blood Pressure [Right Arm] 188/89 H 178/107 H Blood Pressure Mean Blood Pressure Mean [Right Arm] 122 130 Blood Pressure Position [Right Arm] Sitting Sitting Pulse Oximetry 94 97 Oxygen Delivery Method Room Air Room Air Sepsis Recent Fever Within 48 Hours Sepsis New/Unexplained Change in Mental Status Sepsis Action Taken by Jail Medications Current Medication List: was personally reviewed by me Laboratory Data Attestation: I reviewed the patient's lab results. 02/06/23 16:16 02/06/23 16:16 Lab Results 02/06/23 02/06/23 Range/Units 16:16 Unknown WBC 7.13 (4.8-10.8) K/ul RBC 4.25 (4.20-5.40) M/uL Hgb 12.8 (12.0-16.0) g/dl Hct 38.8 (37.0-47.0) % MCV 91.3 (80.0-100.0) fL MCH 30.1 (25.0-34.0) pg MCHC 33.0 (32.0-36.0) g/dL RDW Std Deviation 42.3 (36.4-46.3) fL RDW Coeff of Linda 12.7 (11.5-14.5) % Plt Count 205 (130-400) K/uL MPV 10.1 (9.4-12.4) fL Immature Gran % (Auto) 0.4 % Neut % (Auto) 67.8 % Lymph % (Auto) 22.9 % Preston % (Auto) 6.9 % Eos % (Auto) 1.7 % Baso % (Auto) 0.3 % Neut # (Auto) 4.84 (1.40-6.50) K/uL Lymph # (Auto) 1.63 (1.20-3.40) K/uL Preston # (Auto) 0.49 (0.11-0.59) K/uL Eos # (Auto) 0.12 (0.00-0.50) K/uL Baso # (Auto) 0.02 (0.00-0.20) K/uL Immature Gran # (Auto) 0.03 (0.01-0.20) K/uL PT 11.8 (9.0-12.0) Seconds INR 1.1 (0.9-1.1) APTT 26 (21-31) Seconds PTT Ratio 0.9 Sodium 141 (136-145) mmol/L Potassium 4.0 (3.5-5.1) mmol/L Chloride 108 H (98-107) mmol/L Carbon Dioxide 27 (21-32) mmol/L Anion Gap 6 (3-11) BUN 24 H (6-23) mg/dl Creatinine 0.80 (0.6-1.2) mg/dl Est Cr Clr Drug Dosing 48.6 ml/min Est GFR ( Amer) 79.6 ml/min Est GFR (Non-Af Amer) 68.7 ml/min BUN/Creatinine Ratio 30.0 H (10-20) Glucose 205 H (70-99(Fasting)) mg/dl Calcium 9.3 (8.6-10.3) mg/dl Magnesium 1.6 L (1.7-2.4) mg/dl Total Bilirubin 0.7 (0.2-1.0) mg/dl AST 18 (13-39) U/L ALT 11 (7-52) U/L Alkaline Phosphatase 44 (34-104) U/L Troponin I High Sens 8.3 (0-14) pg/ml Total Protein 6.9 (6.0-8.3) gm/dl Albumin 3.9 (3.4-5.0) gm/dl Globulin 3.0 (2.5-4.0) gm/dl Albumin/Globulin Ratio 1.3 (0.9-2) TSH 4.466 (0.300-4.500) uIu/ml Urine Color Yellow Urine Appearance Clear (Clear) Urine pH 6.5 (4.5-7.5) Ur Specific Vest 1.015 (1.000-1.030) Urine Protein Negative (Negative) Urine Glucose (UA) 1+ H (Negative) Urine Ketones Negative (Negative) Urine Blood Negative (Negative) Urine Nitrite Negative (Negative) Urine Bilirubin Negative (Negative) Urine Urobilinogen Negative (Negative) Ur Leukocyte Esterase Negative (Negative) Administered Medications Discontinued Medications Sodium Chloride (Nss) 500 mls @ 999 mls/hr IV .Q31M [facility] Stop: 02/06/23 16:00 Last Admin: 02/06/23 16:30 Dose: 999 mls/hr Documented By: DEAN Imaging Data Attestation: I personally reviewed and interpreted this imaging study as follows: My Impression: CT of the brain was obtained in the emergency department. My interpretation is no intracranial hemorrhage or mass effect, final report below. Radiologist's Impression: Cervical Spine CT 02/06/23 15:27 CT cervical spine wo con CLINICAL HISTORY: fall TECHNIQUE: Multidetector row helical CT of the cervical spine was performed without administration of intravenous contrast. Coronal and sagittal reformations were obtained. Automated dose lowering techniques and/or adjustment according to patient size were utilized for this exam. Comparison: None available at the time of this dictation. FINDINGS: No acute fractures or subluxations are identified. Degenerative changes are seen in the visualized spine. The alignment is normal. Soft tissues are unremarkable. IMPRESSION: Degenerative changes without evidence of acute bony injury. ACT 112: Negative or not required by law. Electronically signed by: Jesus Tolentino M.D. 02/06/2023 4:48 PM Chest X-Ray 02/06/23 15:27 XR chest 1V portable CLINICAL HISTORY: weakness TECHNIQUE: Single frontal radiograph of the chest was obtained. Comparison: Comparison is made to chest radiograph 08/17/2022 FINDINGS: No lines and tubes are seen. Cardiomegaly is noted. Reticular interstitial opacities are seen. No evidence of pleural effusion or pneumothorax. IMPRESSION: No acute chest disease. ACT 112: Negative or not required by law. Electronically signed by: Jesus Tolentino M.D. 02/06/2023 4:[address] 02/06/23 15:27 CT SCAN OF THE BRAIN WITHOUT IV CONTRAST CLINICAL HISTORY: Fall. COMPARISON STUDY: CT of the brain dated 01/28/2022. TECHNIQUE: Unenhanced axial CT scan of the brain is performed from the vertex to the skull base. A dose lowering technique was utilized adhering to the principles of ALARA. FINDINGS: Brain parenchyma: There is age-related involutional change noting advanced subcortical and periventricular microangiopathic disease. There is no hemorrhage, mass effect, or evidence of acute territorial ischemia by CT criteria. A small chronic lacunar infarct is noted in the left cerebellar hemisphere. Rodriguez-white matter differentiation is preserved. No extra-axial fluid collection is seen. Ventricles, sulci, cisterns: Prominent secondary to involutional change. Intracranial vasculature: There is atherosclerotic calcification of the cavernous carotid and vertebral arteries. Calvarium: The skeletal structures are osteopenic. No depressed calvarial fracture is seen. Sinuses and mastoids: The visualized paranasal sinuses are clear. The mastoid air cells are well pneumatized. Orbits: The bony orbits are grossly intact. IMPRESSION: There is no hemorrhage, mass effect, or evidence of acute territorial ischemia by CT criteria. ACT 112: Negative or not required by law. Electronically signed by: Pilo Almanzar M.D. 02/06/2023 4:[address] 12/05/23 15:27 CT lumbar spine wo con CLINICAL HISTORY: fall TECHNIQUE: Multidetector row helical CT of the lumbar spine was performed without administration of intravenous contrast. Coronal and sagittal reformations were obtained. Automated dose lowering techniques and/or adjustment according to patient size were utilized for this exam. Comparison: Comparison is made to CT lumbar spine 10/27/2019 FINDINGS: For counting purposes, the last complete intervertebral disc space is considered L5-S1. Compression deformity of L5 is unchanged from prior exam. No acute fractures are seen. Degenerative changes are noted in the visualized spine. Vertebral body alignment is within normal limits. Atherosclerotic changes are seen in the aorta. IMPRESSION: Degenerative changes without evidence of acute bony injury. ACT 112: Negative or not required by law. Electronically signed by: Jesus Tolentino M.D. 02/06/2023 4:54 PM Discharge Plan Visit Data Chief Complaint: Weakness Stated Complaint: LEFT LEG WEAKNESS ED Provider: Eliecer Porras Discharge Problem: Left leg weakness, Lumbar contusion, Fall, Hypomagnesemia Patient Disposition: Being Evaluated by Hospitalist Forms Stand Alone Forms: [facility] Prescriptions Prescriptions: No Action (DME) blood-glucose meter [miCab Verio Reflect Meter] Misc See Rx Instructions .Route Qty: 1 0RF Rx Instructions: As directed triamcinolone acetonide [Nasacort] 55 mcg aerosol,spray 1 spray INTNAS DAILY PRN (Reason: Congestion) Qty: 16.9 0RF Rx Instructions: Administer into each nostril lidocaine 5 % adhesive patch,medicated 1 patch topical DAILY PRN (Reason: pain (scale score 7-10)) Qty: 30 5RF Rx Instructions: leave on most painful area for up to 12 hrs atorvastatin [Lipitor] 40 mg tablet 40 mg PO HS Qty: 90 3RF (DME) pen needle, diabetic [BD Ultra-Fine Cris Pen Needle] 32 gauge x 5/32" needle See Rx Instructions .ROUTE .MEDSUPPLY Qty: 400 3RF Rx Instructions: use 4 per day with insulin injections diphenoxylate-atropine [Lomotil] 2.5-0.025 mg tablet 1 tab PO BID PRN (Reason: diarrhea) Qty: 180 1RF (DME) lancets [OneTouch Delica Plus Lancet] 33 gauge misc See Rx Instructions .ROUTE .MEDSUPPLY Qty: 400 3RF Rx Instructions: use to test 4 times daily lisinopril 40 mg tablet 40 mg PO QAM Qty: 90 3RF (DME) OneTouch Verio test strips Strip See Rx Instructions .ROUTE .MEDSUPPLY Qty: 300 3RF Rx Instructions: test 3 times daily doxazosin 1 mg tablet 1 mg PO DAILY Qty: 90 3RF Toujeo SoloStar U-300 Insulin 300 unit/mL (1.5 mL) insulin pen 40 unit SUBCUT QAM 90 Days Qty: 12 3RF duloxetine 60 mg capsule,delayed release(DR/EC) 60 mg PO QAM 90 Days Qty: 90 1RF spironolactone [Aldactone] 25 mg tablet 12.5 mg PO DAILY Qty: 45 1RF metoprolol succinate [Toprol XL] 50 mg tablet extended release 24 hr 50 mg PO QAM Qty: 90 3RF aspirin [Kimberly Low Dose Aspirin] 81 mg tablet,delayed release (DR/EC) 81 mg PO QAM insulin lispro [Humalog KwikPen Insulin] 100 unit/mL insulin pen 5 unit subcut TID 90 Days Qty: 15 3RF Gemtesa 75 mg tablet 75 mg PO DAILY Qty: 90 3RF Myrbetriq 50 mg tablet extended release 24 hr 50 mg PO DAILY Qty: 90 3RF methenamine hippurate 1 gram tablet 1 g PO BID Qty: 180 3RF cholecalciferol (vitamin D3) [Vitamin D3] 50 mcg (2,000 unit) Capsule 2,000 unit PO QAM Women's One Daily 18 mg iron-400 mcg-500 mg Ca Tablet 1 tab PO QAM Probiotic 5 billion cell Capsule, Sprinkle 1 cap PO DAILY PreserVision AREDS-2 250-90-40-1 mg Capsule 1 tab PO BID hydroxyzine HCl 10 mg tablet 10 mg PO Q6H PRN (Reason: dizziness or vertigo) Qty: 20 0RF cranberry 400 mg Capsule 400 mg PO DAILY Rx Instructions: administer with a meal Zinc and C 120-20 mg Lozenge 1 manny PO DAILY Referrals Referrals: Markus Castillo MD [Primary Care Provider] - Discharge Problem: Lumbar contusion Qualifiers: Encounter type: initial encounter Qualified Code(s): S30.0XXA - Contusion of lower back and pelvis, initial encounter Fall Qualifiers: Encounter type: initial encounter Qualified Code(s): W19.XXXA - Unspecified fall, initial encounter
--- NOTE | 2023-02-06 16:09 | XRay Report ---
XR chest 1V portable CLINICAL HISTORY: weakness TECHNIQUE: Single frontal radiograph of the chest was obtained. Comparison: Comparison is made to chest radiograph 08/17/2022 FINDINGS: No lines and tubes are seen. Cardiomegaly is noted. Reticular interstitial opacities are seen. No sid dence of pleural effusion or pneumothorax. IMPRESSION: No acute chest disease. ACT 112: Negative or not required by law. Electronically signed by: Jesus Tolentino M.D. 02/06/2023 4:08 PM
--- NOTE | 2023-02-06 16:11 | Electrocardiogram Report ---
Test Reason : Blood Pressure : / mmHG Vent. Rate : 062 BPM Atrial Rate : 062 BPM P-R Int : 216 ms QRS Dur : 090 ms QT Int : 424 ms P-R-T Axes : 038 -16 079 degrees QTc Int : 430 ms Sinus rhythm with 1st degree A-V block Minimal voltage criteria for LVH, may be normal variant ( R in aVL ) Poor R wave progression, consider anterior KS vs. lead placement vs. LVH Abnormal ECG When compared with ECG of 17-AUG-2022 20:56, No significant change was found Confirmed by Eliecer Perez ([id number]) on 02/06/2023 4:10:57 PM Referred By: Confirmed By:Eliecer Perez
[2023-02-06 16:34] LABS: Basophils # (auto) 0.02 K/uL (0.00-0.20); Basophils % (auto) 0.3 %; Eosinophils # (auto) 0.12 K/uL (0.00-0.50); Eosinophils % (auto) 1.7 %; Hematocrit (blood only) 38.8 % (37.0-47.0); Hemoglobin 12.8 g/dl (12.0-16.0); Immature Granulocytes # (auto) 0.03 K/uL (0.01-0.20); Immature Granulocytes % (auto) 0.4 %; Lymphocytes # (auto) 1.63 K/uL (1.20-3.40); Lymphocytes % (auto) 22.9 %; Mean Corpuscular Hemoglobin 30.1 pg (25.0-34.0); Mean Corpuscular Volume 91.3 fL (80.0-100.0); Mean Platelet Volume 10.1 fL (9.4-12.4); Monocytes # (auto) 0.49 K/uL (0.11-0.59); Monocytes % (auto) 6.9 %; Neutrophils # (auto) 4.84 K/uL (1.40-6.50); Neutrophils % (auto) 67.8 %; Platelet Count 205 K/uL (130-400); RDW Coefficient of Variation 12.7 % (11.5-14.5); RDW Standard Deviation 42.3 fL (36.4-46.3); Red Blood Count 4.25 M/uL (4.20-5.40); White Blood Count 7.13 K/ul (4.8-10.8)
--- NOTE | 2023-02-06 16:49 | CT Scan Report ---
CT SCAN OF THE BRAIN WITHOUT IV CONTRAST CLINICAL HISTORY: Fall. COMPARISON STUDY: CT of the brain dated 01/28/2022. TECHNIQUE: Unenhanced axial CT scan of the brain is performed from the vertex to the skull base. A do se lowering technique was utilized adhering to the principles of ALARA. FINDINGS: Brain parenchyma: There is age-related involutional change noting advanced subcortical and periventri cular microangiopathic disease. There is no hemorrhage, mass effect, or evidence of acute territorial ischemia by CT criteria. A small chronic lacunar infarct is noted in the left cerebellar hemisphere. Rodriguez-white matter differentiation is preserved. No extra-axial fluid collection is seen. Ventricles, sulci, cisterns: Prominent secondary to involutional change. Intracranial vasculature: There is atherosclerotic calcification of the cavernous carotid and vertebr al arteries. Calvarium: The skeletal structures are osteopenic. No depressed calvarial fracture is seen. Sinuses and mastoids: The visualized paranasal sinuses are clear. The mastoid air cells are well pneu matized. Orbits: The bony orbits are grossly intact. IMPRESSION: There is no hemorrhage, mass effect, or evidence of acute territorial ischemia by CT susana puente. ACT 112: Negative or not required by law. Electronically signed by: Pilo Almanzar M.D. 02/06/2023 4:47 PM
--- NOTE | 2023-02-06 16:49 | CT Scan Report ---
CT cervical spine wo con CLINICAL HISTORY: fall TECHNIQUE: Multidetector row helical CT of the cervical spine was performed without administration of intravenous contrast. Coronal and sagittal reformations were obtained. Automated dose lowering techn iques and/or adjustment according to patient size were utilized for this exam. Comparison: None available at the time of this dictation. FINDINGS: No acute fractures or subluxations are identified. Degenerative changes are seen in the visualized sp ine. The alignment is normal. Soft tissues are unremarkable. IMPRESSION: Degenerative changes without evidence of acute bony injury. ACT 112: Negative or not required by law. Electronically signed by: Jesus Tolentino M.D. 02/06/2023 4:48 PM
[2023-02-06 16:50] LABS: Albumin Globulin Ratio 1.3 (0.9-2); Albumin Level 3.9 gm/dl (3.4-5.0); Bilirubin,Total 0.7 mg/dl (0.2-1.0); Calcium 9.3 mg/dl (8.6-10.3); Creatinine Clr Calc Pharmacy 48.6 ml/min; Est GFR (African American) 79.6 ml/min; Est GFR (Non-African American) 68.7 ml/min; Magnesium 1.6 mg/dl (1.7-2.4); Total Protein 6.9 gm/dl (6.0-8.3)
[2023-02-06 16:56] LABS: Troponin I High Sensitivity 8.3 pg/ml (0-14)
--- NOTE | 2023-02-06 16:56 | CT Scan Report ---
CT lumbar spine wo con CLINICAL HISTORY: fall TECHNIQUE: Multidetector row helical CT of the lumbar spine was performed without administration of i ntravenous contrast. Coronal and sagittal reformations were obtained. Automated dose lowering techniq ues and/or adjustment according to patient size were utilized for this exam. Comparison: Comparison is made to CT lumbar spine 10/27/2019 FINDINGS: For counting purposes, the last complete intervertebral disc space is considered L5-S1. Compression deformity of L5 is unchanged from prior exam. No acute fractures are seen. Degenerative c hanges are noted in the visualized spine. Vertebral body alignment is within normal limits. Atheroscl erotic changes are seen in the aorta. IMPRESSION: Degenerative changes without evidence of acute bony injury. ACT 112: Negative or not required by law. Electronically signed by: Jesus Tolentino M.D. 02/06/2023 4:54 PM
[2023-02-06 17:06] LABS: Thyroid Stimulating Hormone 4.466 uIu/ml (0.300-4.500)
[2023-02-06 17:11] LABS: INR 1.1 (0.9-1.1); Partial Thromboplastin Ratio 0.9; Partial Thromboplastin Time 26 Seconds (21-31); Prothrombin Time 11.8 Seconds (9.0-12.0)
[2023-02-06] MEDS ORDERED: MAGNESIUM OXIDE 400 MG TAB PO ONE (17:33)
[2023-02-06 18:19] LABS: Appearance Urine Clear (Clear); Bilirubin Urine Negative (Negative); Blood Urine Negative (Negative); Color Urine Yellow; Glucose Urine UA 1+ (Negative); Ketones Urine Negative (Negative); Leukocyte Esterase Urine Negative (Negative); Nitrite Urine Negative (Negative); Protein Urine Negative (Negative); Specific Gravity Urine 1.015 (1.000-1.030); Urobilinogen Urine Negative (Negative); pH Urine 6.5 (4.5-7.5)
--- NOTE | 2023-02-06 19:11 | History & Physical Report ---
Date of Service February 06, 2023 Assessment & Plan (1) Stroke: Plan: LLE deficits x11 days since falling in her garage Patient ambulates with a walker at baseline; however she was not using the walker at time of fall Hx of stroke in 2011 w/ residual right-sided deficits; patient reports consistently taking aspirin 81 mg daily Patient has not noticed any slurred speech, or facial droop since her fall Head CT NAF Brain MRI revealed acute/subacute right parietal lacunar infarct Neurochecks q4h Echo with bubble study ordered Permissive HTN in the setting of stroke; lopressor 5mg IV as needed to treat BP for SBP>220 or DBP>120 Plavix 300 mg given in the ED Start on Plavix 75 mg QAM in addition to aspirin 81 mg daily Patient passed dysphagia screen; okay to eat Continuous telemetry monitoring Neurology consulted A.m. CBC, BMP, mag, A1c, fasting lipid panel (2) Fall: Plan: Patient sustained a ground-level fall onto her back while in her garage on 01/26 She was on the ground for >2h before getting help She did not seek medical care at that time Patient ambulates with a walker at baseline; however she was not using the walker at time of fall Cervical spine CT without acute fractures or subluxations Lumbar spine CT NAF Left hip and pelvis x-ray NAF Head CT NAF Fall precautions Lidocaine patch 5% as needed for lower back pain (3) Left leg weakness: Plan: PT/OT consulted (4) Type 2 diabetes mellitus with insulin therapy: Plan: Last A1c 7.2% on 07/05/2022 Glucose 205 at time of admission Lantus 40u QAM SSI with target goal 110-140mg/dL, CF 55, carb ratio 20 T2DM diet Adjust med regimen as needed AM A1c (5) H/O: stroke with residual effects: Plan: Stroke in 2012 with residual RLE deficits Continue aspirin 81 mg daily (6) Hyperlipidemia: Plan: Continue atorvastatin (7) Hypertension: Plan: Continue metoprolol, lisinopril (8) Hypomagnesemia: Plan: Magnesium 1.6 on admission Patient received magnesium in the ED Check a.m. mag (9) Overactive bladder: Plan: Continue mirabegron (10) Lupus: Plan: Patient attributes scab on right upper shoulder to lupus Plan Disposition: PCU telemetry DNR/DNI T2DM Diet VTE Ppx: Lovenox History of Present Illness Chief Complaint: LLE weakness Primary Care Provider: Markus Castillo MD Sofia is an 82-year-old female with PMH of falls, T2DM, HLD, HTN, IBS, and CVA with right-sided LE residual deficits. She presented for worsening LLE weakness and ambulatory dysfunction since a fall on 01/26. Patient ambulates with a walker at baseline. She sustained a ground-level fall onto pavement in her garage on 01/26, and landed on her back, but did not seek medical attention at the time. She was down for >2h before getting back up. Patient lives alone. Hx of balance issues. She notes that the pain is located in her left leg, however she is unable to identify where specifically in her left leg the pain is located. She rates the pain 6/10 at present; 10/10 at worst. She describes it as dull, achy, constant over the past week; she notes it is getting worse every day. She also notes decreased strength and difficulty with walking. Patient manages her own medications. She reports she took all of her morning medications today. No recent changes in medications. No sick contacts. Patient has an elevated BP at 219/121 at time of admission. ED course: NSS 500 mL Magnesium oxide 400 mg p.o. ROS: Patient endorses low-grade fever last night (at 99.9), nightsweats, ongoing nausea, urinary incontinence, and ongoing back pain. Patient denies chills, chest pain, SOB, abdominal pain, saddle anesthesia, or numbness/tingling in LEs. Allergies Allergy/AdvReac Type Severity Reaction Status Date / Time dapsone Allergy Intermediate Rash Verified 02/06/23 17:44 Sulfa (Sulfonamide Allergy Mild Unknown Verified 02/06/23 17:44 Antibiotics) latex Allergy Unknown Unknown Verified 02/06/23 17:44 ciprofloxacin AdvReac Intermediate "i blew up Verified 02/06/23 17:44 like a balloon" per pt adhesive AdvReac Unknown Unknown Verified 02/06/23 17:44 metronidazole [From Flagyl] AdvReac Unknown Unknown Verified 02/06/23 17:44 red dye AdvReac Unknown Unknown Verified 02/06/23 17:44 Home Medications Medication Instructions Recorded Confirmed Type cholecalciferol (vitamin D3) 50 2,000 unit PO QAM 11/11/19 02/06/23 History mcg (2,000 unit) capsule (Vitamin D3) multivit-iron 18 mg-folic acid 400 1 tab PO QAM 11/11/19 02/06/23 History mcg-calcium 500 mg-minerals tablet (Women's One Daily) aspirin 81 mg tablet,delayed 81 mg PO QAM 08/12/20 02/06/23 History release (Kimberly Low Dose Aspirin) OneTouch Verio Reflect Meter #1 ea 08/05/21 08/29/22 Rx (blood-glucose meter) triamcinolone acetonide 55 mcg 1 spray intranasal DAILY PRN 08/26/21 02/06/23 Rx nasal spray aerosol (Nasacort) Congestion #16.9 mL lidocaine 5 % topical patch 1 patch topical DAILY PRN pain 09/26/21 02/06/23 Rx (scale score 7-10) #30 ea hydroxyzine HCl 10 mg tablet 10 mg PO Q6H PRN dizziness or 01/28/22 02/06/23 Rx vertigo #20 tabs methenamine hippurate 1 gram tablet 1 g PO BID #180 tabs 04/13/22 02/06/23 Rx mirabegron 50 mg tablet,extended 50 mg PO DAILY #90 tabs 04/13/22 02/06/23 Rx release 24 hr (Myrbetriq) atorvastatin 40 mg tablet (Lipitor) 40 mg PO HS #90 tabs 04/24/22 02/06/23 Rx pen needle, diabetic 32 gauge x #400 ea 05/12/22 08/29/22 Rx 5/32" (BD Ultra-Fine Cris Pen Needle) diphenoxylate-atropine 2.5 1 tab PO BID PRN diarrhea #180 tabs 07/13/22 02/06/23 Rx mg-0.025 mg tablet (Lomotil) OneTouch Delica Plus Lancet 33 #400 ea 07/28/22 08/29/22 Rx gauge (lancets) vibegron 75 mg tablet (Gemtesa) 75 mg PO DAILY #90 tabs 08/16/22 08/29/22 Rx Lactobacil.acidophilus-Bifido.animalis 1 cap PO DAILY 08/17/22 02/06/23 History 5 billion cell sprinkle capsule (Probiotic) vit C 250 mg-vit E 90 mg-zinc 40 1 tab PO BID 08/17/22 02/06/23 History mg-copper 1 af-bylqas-dzhqge capsule (PreserVision AREDS-2) lisinopril 40 mg tablet 40 mg PO QAM #90 tabs 08/21/22 02/06/23 Rx insulin lispro 100 unit/mL 5 unit (0.05 mL) subcut TID 90 08/29/22 02/06/23 Rx subcutaneous pen (Humalog Kwik days #15 mL (U-100) Insulin) OneTouch Verio test strips (blood #300 ea 09/07/22 Rx sugar diagnostic) doxazosin 1 mg tablet 1 mg PO DAILY #90 tabs 09/11/22 02/06/23 Rx insulin glargine U-300 conc 300 40 unit (0.1333 mL) subcut QAM 40 12/12/22 02/06/23 Rx unit/mL (1.5 mL) subcutaneous pen units 90 days #12 mL (Toujeo SoloStar U-300 Insulin) duloxetine 60 mg capsule,delayed 60 mg PO QAM 90 days #90 caps 01/04/23 02/06/23 Rx release spironolactone 25 mg tablet 12.5 mg (1/2 x 25 mg) PO DAILY #45 01/31/23 02/06/23 Rx (Aldactone) tabs metoprolol succinate 50 mg 50 mg PO QAM #90 tabs 02/02/23 02/06/23 Rx tablet,extended release 24 hr (Toprol XL) ascorbic acid and sodium 120 1 manny PO DAILY 02/06/23 02/06/23 History mg-zinc oxide,gluconate 20 mg lozenges cranberry 400 mg capsule 400 mg PO DAILY 02/06/23 02/06/23 History Past Med/Surg History Medical History Lupus Overactive bladder Hypertension Contact dermatitis Chronic cough Rash Herpes zoster, ocular Contusion of leg, left Gross hematuria Physical deconditioning Expressive aphasia UTI (urinary tract infection) Chronic diarrhea Spinal stenosis of lumbar region H/O: stroke with residual effects Cerebrovascular disease Family history of dementia Neurogenic claudication due to lumbar spinal stenosis CAD (coronary artery disease) Arm DVT (deep venous thromboembolism), acute Mitral regurgitation Recurrent UTI Hx of renal calculi C. difficile colitis Surgical History Stented coronary artery History of lithotripsy S/P cardiac catheterization Hx of cholecystectomy Family History Mother Alzheimer disease Hypertension Brother Diabetes Father Hypertension Sister Lung cancer Other Family history non-contributory Stroke Social History Smoking Status: Never smoker Second Hand Exposure: No; Do You Dip or Chew Tobacco: No; Hx Alcohol Use: No Hx Substance Use: No Preferred Language: Upper Sorbian Communication Ability: Effective Visual Impairment: No Limitations Hearing Ability: Normal Apple Packing Header Required: No Beliefs That Will Affect Care: None marital status: / Current Living Situation: Alone current occupational status: retired Feels Safe at Home: Yes Childhood Exposure to Second-Hand Smoke: No Dental Care, Regularly: No Physical Activity Frequency: Does not Exercise Seatbelt Use: always Sunscreen Use: No Assistive Devices: Walker Assistive Devices Comment: new use of walker Review of Systems Review of Systems: See HPI above Physical Exam Physical Exam: General: no acute distress; pleasant affect; non-toxic appearing; well- nourished; cooperative HEENT: normocephalic, atraumatic; no scleral icterus; PERRLA w/ EOMs intact; moist mucus membrane; vision and hearing grossly intact Neck: supple; no lymphadenopathy; trachea midline Skin: warm, dry without signs of tenting; no cyanosis; dark red scab on right upper shoulder, excoriations on right upper lateral arm CV: chest wall NTP; RRR; S1/S2 normal; no murmurs/rubs/gallops; pulses intact and symmetric at radial, DP, and PT Lungs: no acute respiratory distress; symmetrical chest wall expansion; clear breath sounds across all lung palafox w/o adventitious sounds; no wheezing ABD: Soft, NTP; BS present; no rebound/guarding; no ascites; no distention; negative CVA tenderness MSK: no tics or fasciculations; no edema noted in the LEs b/l, nonerythematous; +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 strength b/l RLE: Full active ROM; 4/5 strength; patient demonstrates ability to wiggle toes LLE: Decreased strength in LLE when bending of the hip, plantarflexion, and dorsiflexion; patient demonstrates ability to wiggle toes Neuro: A&Ox3; normal mood and affect; fluent speech; no focal deficits; sensation intact in the face, UEs, LEs B/L; Results & Data Results & Data Vital Signs (Past 12 Hours) Vital Signs Temp Pulse Pulse Resp BP BP Pulse Ox 02/06/23 17:09 62 20 178/107 H 97 02/06/23 15:45 65 18 188/89 H 94 02/06/23 15:38 62 02/06/23 15:27 68 20 94 02/06/23 15:27 02/06/23 15:27 36.5 C 68 18 188/89 H 95 O2 Del Method 02/06/23 17:09 Room Air 02/06/23 15:45 Room Air 02/06/23 15:38 02/06/23 15:27 Room Air 02/06/23 15:27 Room Air 02/06/23 15:27 Room Air Laboratory Results Abnormal lab results 02/06/23 02/06/23 Range/Units 16:16 Unknown Chloride 108 H (98-107) mmol/L BUN 24 H (6-23) mg/dl BUN/Creatinine Ratio 30.0 H (10-20) Glucose 205 H (70-99(Fasting)) mg/dl Magnesium 1.6 L (1.7-2.4) mg/dl Urine Glucose (UA) 1+ H (Negative) Diagnostic Findings Cervical Spine CT 02/06/23 15:27 CT cervical spine wo con CLINICAL HISTORY: fall TECHNIQUE: Multidetector row helical CT of the cervical spine was performed without administration of intravenous contrast. Coronal and sagittal reformations were obtained. Automated dose lowering techniques and/or adjustment according to patient size were utilized for this exam. Comparison: None available at the time of this dictation. FINDINGS: No acute fractures or subluxations are identified. Degenerative changes are seen in the visualized spine. The alignment is normal. Soft tissues are unremarkable. IMPRESSION: Degenerative changes without evidence of acute bony injury. ACT 112: Negative or not required by law. Electronically signed by: Jesus Tolentino M.D. 02/06/2023 4:48 PM Chest X-Ray 02/06/23 15:27 XR chest 1V portable CLINICAL HISTORY: weakness TECHNIQUE: Single frontal radiograph of the chest was obtained. Comparison: Comparison is made to chest radiograph 08/17/2022 FINDINGS: No lines and tubes are seen. Cardiomegaly is noted. Reticular interstitial opacities are seen. No evidence of pleural effusion or pneumothorax. IMPRESSION: No acute chest disease. ACT 112: Negative or not required by law. Electronically signed by: Jesus Tolentino M.D. 02/06/2023 4:[address] 02/06/23 15:27 CT SCAN OF THE BRAIN WITHOUT IV CONTRAST CLINICAL HISTORY: Fall. COMPARISON STUDY: CT of the brain dated 01/28/2022. TECHNIQUE: Unenhanced axial CT scan of the brain is performed from the vertex to the skull base. A dose lowering technique was utilized adhering to the principles of ALARA. FINDINGS: Brain parenchyma: There is age-related involutional change noting advanced subcortical and periventricular microangiopathic disease. There is no hemorrhage, mass effect, or evidence of acute territorial ischemia by CT criteria. A small chronic lacunar infarct is noted in the left cerebellar hemisphere. Rodriguez-white matter differentiation is preserved. No extra-axial fluid collection is seen. Ventricles, sulci, cisterns: Prominent secondary to involutional change. Intracranial vasculature: There is atherosclerotic calcification of the cavernous carotid and vertebral arteries. Calvarium: The skeletal structures are osteopenic. No depressed calvarial fracture is seen. Sinuses and mastoids: The visualized paranasal sinuses are clear. The mastoid air cells are well pneumatized. Orbits: The bony orbits are grossly intact. IMPRESSION: There is no hemorrhage, mass effect, or evidence of acute territorial ischemia by CT criteria. ACT 112: Negative or not required by law. Electronically signed by: Pilo Almanzar M.D. 02/06/2023 4:[address] 02/06/23 15:27 CT lumbar spine wo con CLINICAL HISTORY: fall TECHNIQUE: Multidetector row helical CT of the lumbar spine was performed withou t administration of intravenous contrast. Coronal and sagittal reformations were obtained. Automated dose lowering techniques and/or adjustment according to patient size were utilized for this exam. Comparison: Comparison is made to CT lumbar spine 10/27/2019 FINDINGS: For counting purposes, the last complete intervertebral disc space is considered L5-S1. Compression deformity of L5 is unchanged from prior exam. No acute fractures are seen. Degenerative changes are noted in the visualized spine. Vertebral body alignment is within normal limits. Atherosclerotic changes are seen in the a syd. IMPRESSION: Degenerative changes without evidence of acute bony injury. ACT 112: Negative or not required by law. Electronically signed by: Jesus Tolentino M.D. 02/06/2023 4:54 PM Hip/Pelvis X-Ray 02/06/23 19:10 SINGLE VIEW PELVIS; 2 VIEWS LEFT HIP CLINICAL HISTORY: Fall. FINDINGS: An AP portable view of the pelvis with AP and frog-leg views of the left hip are compared to study dated 04/07/2021. The skeletal structures are osteopenic. There is no radiographic evidence of acute fracture involving the hips or bony pelvis. Mild to moderate arthritic change and joint space narrowing is seen in the hips. There is degenerative sclerosis of the sacroiliac joints and pubic symphysis. Enthesophytes arise from the anterior superior iliac spines. Lumbosacral spondylosis is partially imaged. The overlying soft tissues are within normal limits. IMPRESSION: No acute bony abnormality is identified. Electronically signed by: Pilo Almanzar M.D. 02/06/2023 8:08 PM Brain MRI 02/06/23 20:04 MRI OF THE BRAIN WITHOUT IV CONTRAST CLINICAL HISTORY: Stroke like symptoms. COMPARISON STUDY: CT of the brain dated 02/06/2023. TECHNIQUE: MRI of the brain was performed utilizing various T1 and T2-weighted sequences in the axial, sagittal, and coronal planes. IV contrast was not administered for this examination. The examination is degraded by motion artifact. FINDINGS: Brain parenchyma: There is age-related involutional change noting advanced subcortical and periventricular microangiopathic disease. There is a subc entimeter focus of restricted diffusion in the right parietal white matter seen on axial image #17. This is consistent with acute to subacute lacunar infarct. No additional foci of restricted diffusion are identified. There is no hemorrhage or mass effect. A chronic lacunar infarct is noted in the left cerebellar hemisphere. No extra-axial fluid collection is seen. The cerebellar tonsils are normal in configuration. Ventricles, sulci, and cisterns: Prominent secondary to involutional change. Pituitary and sella: Unremarkable. Intracranial vasculature: Normal flow voids are maintained at the skull base. Orbits: The bony orbits are grossly intact. Orbital contents are normal in appearance. Sinuses and mastoids: Clear. Calvarium: Unremarkable. Cervical cord: Partially visualized cervical spinal cord is normal in morphology and signal intensity. IMPRESSION: 1. A subcentimeter focus of restricted diffusion in the right parietal white matter is consistent with an acute to subacute lacunar infarct. 2. No additional foci of restricted diffusion are identified. 3. There is no hemorrhage or mass effect. ACT 112: Negative or not required by law. Electronically signed by: Pilo Almanzar M.D. 02/06/2023 10:18 PM Code Status & VTE Plan Code Status DNR/DNI VTE Prophylaxis Plan VTE Prophylaxis will be ordered: Yes Supervising Physician Co-Signing Physician Notes I personally saw and examined the patient. I independently reviewed the labs, EKG, imaging, problem list, medication list, past medical history and family history. I verified all akers points and agree with Shady Domingo PA-C with the following exceptions and/or additions: 82 year old female presents to the ER with left leg weakness. Fell on Sunday and no leg weakness before this. Unclear when leg weakness started as she has had some trouble walking since the fall but today realized that her ongoing weakness could be a stroke therefore decided to come to the ER for evaluation. O/E A&Ox3, PERRL, EOMI, no facial droop, 4/5 left hips flex, pain over quadriceps muscle, no pain on int/ext rotation of her hips. no upper extremity weakness of pronator drift. A/P Acute CVA - CT angio heack/neck, TTE, telemetry, add clopidogrel to plavix, consult neurology Otherwise as above PG Care Time/CCT Total # of Minutes Spent Total Time Spent with Patient: Total time spent is greater than 50% in coordination of care (as documented) at patient's floor/unit and/or counseling patient: Coding [place] [address] INT INP/OBS CARE 3/75MIN Patient Type Established Medical Decision Making High Complexity Diagnoses Stroke I63.9 Fall W19.XXXA Encounter type: initial encounter Left leg weakness R29.898 Type 2 diabetes mellitus with insulin therapy E11.9; Z79.4 H/O: stroke with residual effects I69.30 Hyperlipidemia E78.5 Hypertension I10 Hypomagnesemia E83.42 Overactive bladder N32.81 Lupus L93.0 (2) Fall Encounter type: initial encounter Qualified Code(s): W19.XXXA - Unspecified fall, initial encounter
--- NOTE | 2023-02-06 20:10 | XRay Report ---
SINGLE VIEW PELVIS; 2 VIEWS LEFT HIP CLINICAL HISTORY: Fall. FINDINGS: An AP portable view of the pelvis with AP and frog-leg views of the left hip are compared t o study dated 04/07/2021. The skeletal structures are osteopenic. There is no radiographic evidence of acute fracture involving the hips or bony pelvis. Mild to moderate arthritic change and joint space n arrowing is seen in the hips. There is degenerative sclerosis of the sacroiliac joints and pubic symp hysis. Enthesophytes arise from the anterior superior iliac spines. Lumbosacral spondylosis is partia lly imaged. The overlying soft tissues are within normal limits. IMPRESSION: No acute bony abnormality is identified. Electronically signed by: Pilo Almanzar M.D. 02/06/2023 8:08 PM
[2023-02-06] MEDS ORDERED: LORazepam 0.25 MG in SYRINGE 0.125 ML IV STA (20:53)
--- NOTE | 2023-02-06 22:20 | Magnetic Resonance Report ---
MRI OF THE BRAIN WITHOUT IV CONTRAST CLINICAL HISTORY: Stroke like symptoms. COMPARISON STUDY: CT of the brain dated 02/06/2023. TECHNIQUE: MRI of the brain was performed utilizing various T1 and T2-weighted sequences in the axial , sagittal, and coronal planes. IV contrast was not administered for this examination. The examinatio n is degraded by motion artifact. FINDINGS: Brain parenchyma: There is age-related involutional change noting advanced subcortical and periventri cular microangiopathic disease. There is a subcentimeter focus of restricted diffusion in the right p arietal white matter seen on axial image #17. This is consistent with acute to subacute lacunar infar ct. No additional foci of restricted diffusion are identified. There is no hemorrhage or mass effect. A chronic lacunar infarct is noted in the left cerebellar hemisphere. No extra-axial fluid collectio n is seen. The cerebellar tonsils are normal in configuration. Ventricles, sulci, and cisterns: Prominent secondary to involutional change. Pituitary and sella: Unremarkable. Intracranial vasculature: Normal flow voids are maintained at the skull base. Orbits: The bony orbits are grossly intact. Orbital contents are normal in appearance. Sinuses and mastoids: Clear. Calvarium: Unremarkable. Cervical cord: Partially visualized cervical spinal cord is normal in morphology and signal intensity . IMPRESSION: 1. A subcentimeter focus of restricted diffusion in the right parietal white matter is consistent wit h an acute to subacute lacunar infarct. 2. No additional foci of restricted diffusion are identified. 3. There is no hemorrhage or mass effect. ACT 112: Negative or not required by law. Electronically signed by: Pilo Almanzar M.D. 02/06/2023 10:18 PM
[2023-02-06] MEDS ORDERED: PHARMACIST DISCHARGE MED REC CONSULT PRN ×3 (22:29→23:04)
[2023-02-06] MEDS ORDERED: CLOPIDOGREL BISULFATE 300 MG TAB PO STA (22:35)
[2023-02-06] MEDS ORDERED: CARBOHYDRATES FOR HYPOGLYCEMIA PO PRN (23:04)
[2023-02-06] MEDS ORDERED: GLUCOSE 10 TAB/TUBE PO PRN (23:04)
[2023-02-06] MEDS ORDERED: DIPHENOXYLATE/ATROPINE 2.5/0.025MG TAB PO PRN (23:04)
[2023-02-06] MEDS ORDERED: hydrOXYzine HCl 10 MG TAB PO PRN (23:04)
[2023-02-06] MEDS ORDERED: GLUCOSE 40% GEL 15 GM TUBE PO PRN (23:04)
[2023-02-06] MEDS ORDERED: DEXTROSE 50% 50 ML SYRINGE IV PRN (23:04)
[2023-02-06] MEDS ORDERED: GLUCAGON FOR INJ 1 MG VIAL SQ PRN (23:04)
[2023-02-06] MEDS ORDERED: METOPROLOL TARTRATE 1 MG/ML VIAL IV PRN (23:30)
[2023-02-06] MEDS ORDERED: hydrALAZINE HCL 20 MG/ML VIAL IV PRN (23:37)
[2023-02-07] MEDS ORDERED: OPTIRAY 320 125ml IV ONE (00:04)
[2023-02-07] MEDS: INSULIN ASPART PER UNIT CHARGE SC SCH ×5 (00:40→22:07)
[2023-02-07] MEDS: MAGNESIUM SULFATE / D5W 1 GM/100 ML BAG IV SCH ×2 (00:41→02:28)
[2023-02-07] MEDS: ATORVASTATIN 40 MG TAB PO SCH ×2 (00:44→22:06)
--- NOTE | 2023-02-07 01:52 | CT Scan Report ---
Exam(s): CTA NECK With Contrast IV Amt: 117 ml optiray 320 EXAM: CT Angiography Neck With Intravenous Contrast CLINICAL HISTORY: Reason for exam: Stroke r/o. TECHNIQUE: Routine carotid CT angiography protocol was performed with intravenous contrast. NASCET criteria using the distal ICAs for comparison were used for evaluation of stenoses. CTDI is 34.25 mGy and DLP is 511.59 mGy-cm. Automated exposure control was utilized for the study. A dose lowering technique was utilized adhering to the principles of ALARA. MIP reconstructed images were created and reviewed. CONTRAST: Patient received 117 ml optiray 320 of IV contrast COMPARISON: None. FINDINGS: VASCULATURE: Ectasia of the ascending ureter measuring 34 mm in diameter. Right common carotid artery: Unremarkable. No occlusion or significant stenosis. No dissection. Right internal carotid artery: Unremarkable. Extracranial segment is patent with no occlusion or significant stenosis. No dissection. Right external carotid artery: Unremarkable. No occlusion. Right vertebral artery: Unremarkable. No occlusion or significant stenosis. No dissection. Left common carotid artery: Unremarkable. No occlusion or significant stenosis. No dissection. Left internal carotid artery: Unremarkable. Extracranial segment is patent with no occlusion or significant stenosis. No dissection. Left external carotid artery: Unremarkable. No occlusion. Left vertebral artery: Unremarkable. No occlusion or significant stenosis. No dissection. NECK: Bones/joints: Advanced disc degeneration at C5-6. No acute fracture. Soft tissues: Prominent mediastinal and hilar lymph nodes. Prominent cervical lymph nodes. Bilateral thyroid nodules. Lung apices: Feiss concern for bronchitis, which may be of infectious or inflammatory etiologies. Chronic interstitial lung disease. CAROTID STENOSIS REFERENCE USING NASCET CRITERIA: % ICA stenosis = (1 - narrowest ICA diameter/diameter of distal cervical ICA) x 100. Mild - <50% stenosis. Moderate - 50-69% stenosis. Severe - 70-94% stenosis. Near occlusion - 95-99% stenosis. Occluded - 100% stenosis. IMPRESSION: Negative CTA neck. Electronically signed by: Sharifa Moore MD 02/07/23 01:51 AM
--- NOTE | 2023-02-07 01:55 | CT Scan Report ---
Exam(s): CTA HEAD With Contrast IV Amt: 117 ml optiray 320 EXAM: CT Angiography Head With Intravenous Contrast CLINICAL HISTORY: Reason for exam: Stroke r/o. TECHNIQUE: Axial computed tomographic angiography images of the head with intravenous contrast. CTDI is 34.25 mGy and DLP is 511.59 mGy-cm. Automated exposure control was utilized for the study. A dose lowering technique was utilized adhering to the principles of ALARA. MIP reconstructed images were created and reviewed. CONTRAST: Patient received 117 ml optiray 320 of IV contrast COMPARISON: No relevant prior studies available. FINDINGS: The dural venous sinuses are patent. Right internal carotid artery: No acute findings. Intracranial segment is patent with no significant stenosis. No aneurysm. Right anterior cerebral artery: Unremarkable. No occlusion or significant stenosis. No aneurysm. Right middle cerebral artery: Unremarkable. No occlusion or significant stenosis. No aneurysm. Right posterior cerebral artery: Unremarkable. No occlusion or significant stenosis. No aneurysm. Right vertebral artery: Terminates in pica. Left internal carotid artery: No acute findings. Intracranial segment is patent with no significant stenosis. No aneurysm. Left anterior cerebral artery: Unremarkable. No occlusion or significant stenosis. No aneurysm. Left middle cerebral artery: Unremarkable. No occlusion or significant stenosis. No aneurysm. Left posterior cerebral artery: Unremarkable. No occlusion or significant stenosis. No aneurysm. Left vertebral artery: Unremarkable as visualized. Basilar artery: Unremarkable. No occlusion or significant stenosis. No aneurysm. IMPRESSION: Negative CT angiogram of the head. Electronically signed by: Sharifa Moore MD 02/07/23 01:54 AM
[2023-02-07 05:42] LABS: Basophils # (auto) 0.03 K/uL (0.00-0.20); Basophils % (auto) 0.3 %; Eosinophils # (auto) 0.21 K/uL (0.00-0.50); Eosinophils % (auto) 2.2 %; Hematocrit (blood only) 38.3 % (37.0-47.0); Hemoglobin 12.6 g/dl (12.0-16.0); Immature Granulocytes # (auto) 0.03 K/uL (0.01-0.20); Immature Granulocytes % (auto) 0.3 %; Lymphocytes # (auto) 2.41 K/uL (1.20-3.40); Lymphocytes % (auto) 25.3 %; Mean Corpuscular Hemoglobin 29.9 pg (25.0-34.0); Mean Corpuscular Hgb Conc 32.9 g/dL (32.0-36.0); Mean Corpuscular Volume 90.8 fL (80.0-100.0); Mean Platelet Volume 10.1 fL (9.4-12.4); Monocytes # (auto) 0.92 K/uL (0.11-0.59); Monocytes % (auto) 9.7 %; Neutrophils # (auto) 5.91 K/uL (1.40-6.50); Neutrophils % (auto) 62.2 %; Platelet Count 213 K/uL (130-400); RDW Coefficient of Variation 12.9 % (11.5-14.5); RDW Standard Deviation 42.4 fL (36.4-46.3); Red Blood Count 4.22 M/uL (4.20-5.40); White Blood Count 9.51 K/ul (4.8-10.8)
[2023-02-07] MEDS: ACETAMINOPHEN 325 MG TAB PO PRN ×2 (05:53→23:13)
[2023-02-07 06:00] LABS: BUN Creatinine Ratio 23.2 (10-20); Calcium 9.2 mg/dl (8.6-10.3); Creatinine Clr Calc Pharmacy 47.5 ml/min; Est GFR (African American) 77.2 ml/min; Est GFR (Non-African American) 66.6 ml/min; Magnesium 2.4 mg/dl (1.7-2.4); Potassium 3.9 mmol/L (3.5-5.1)
[2023-02-07] MEDS: lisinopril 40 MG TAB PO SCH (07:55)
[2023-02-07] MEDS: ENOXAPARIN INJ 40 MG/0.4 ML SYR SQ SCH (07:55)
[2023-02-07] MEDS: METOPROLOL SUCC 50MG EXT REL TAB PO SCH (07:55)
[2023-02-07] MEDS: VIBEGRON 75 MG TAB PO SCH (07:55)
[2023-02-07] MEDS: DULoxetine HCL 60 MG CAP PO SCH (07:55)
[2023-02-07] MEDS: DOXAZOSIN MESYLATE 1 MG TAB PO SCH (07:55)
[2023-02-07] MEDS: CLOPIDOGREL BISULFATE 75 MG TAB PO SCH (07:56)
[2023-02-07] MEDS: ASPIRIN 81 MG ECTAB PO SCH (07:56)
[2023-02-07] MEDS: SPIRONOLACTONE 12.5 MG TAB PO SCH (07:56)
[2023-02-07] MEDS: ADVANCED PROBIOTIC 1250 MG CAPSULE PO SCH (07:56)
[2023-02-07] MEDS: LIDOCAINE 5% 1 PATCH TD SCH (07:57)
[2023-02-07 08:18] LABS: Estimated Average Glucose 183 mg/dl
--- NOTE | 2023-02-07 08:31 | Hospitalist Progress Note ---
Date of Service February 07, 2023 Assessment & Plan (1) Stroke: (2) Left leg weakness: (3) Fall: (4) H/O: stroke with residual effects: (5) Hypertension: Plan 1) Stroke LLE deficits x11 days since falling in her garage Patient ambulates with a walker at baseline; however she was not using the walker at time of fall Hx of stroke in 2011 w/ residual right-sided deficits; patient reports consistently taking aspirin 81 mg daily Patient has not noticed any slurred speech, or facial droop since her fall Head CT NAF Brain MRI revealed acute/subacute right parietal lacunar infarct Neurochecks q4h Echo with bubble study ordered Permissive HTN in the setting of stroke; lopressor 5mg IV as needed to treat BP for SBP>220 or DBP>120 Plavix 300 mg given in the ED Start on Plavix 75 mg QAM in addition to aspirin 81 mg daily Patient passed dysphagia screen; okay to eat Continuous telemetry monitoring Neurology consulted AM CBC, BMP, mag, A1c, fasting lipid panel (2) Fall Patient sustained a ground-level fall onto her back while in her garage on 01/26 She was on the ground for >2h before getting help She did not seek medical care at that time Patient ambulates with a walker at baseline; however she was not using the walker at time of fall Cervical spine CT without acute fractures or subluxations Lumbar spine CT NAF Left hip and pelvis x-ray NAF Head CT NAF Fall precautions Lidocaine patch 5% as needed for lower back pain (3) Left leg weakness PT/OT consulted, recommending inpatient rehab stay upon d/c from [facility] (4) Type 2 diabetes mellitus with insulin therapy Last A1C, 8.0 on 02/07/2023 Glucose 205 at time of admission Lantus 40u QAM SSI with target goal 110-140mg/dL, CF 55, carb ratio 20 T2DM diet - Adjust med regimen as needed - lacunar location of MRI lesion suggests possible etiology of current lacunar stroke, - F/U w/ PCP about better blood sugar control, consider initiating GLP1 agonist (5) H/O: stroke with residual effects Stroke in 2012 with residual RLE deficits Continue aspirin 81 mg daily (6) Hyperlipidemia Continue atorvastatin at current dosage, 40 mg, PO, QHS Lipid profile: TChol, 116 LDL, 42 HDL, 39 TG, 177 (7) Hypertension Continue metoprolol, lisinopril Lacunar location of lesion on MRI suggests possible etiology of stroke (8) Hypomagnesemia Magnesium 1.6 on admission Patient received magnesium in the ED Check a.m. mag (9) Overactive bladder Continue mirabegron (10) Lupus?? Patient attributes scab on right upper shoulder to lupus Plan Disposition: PCU telemetry DNR/DNI T2DM Diet VTE Ppx: Lovenox Admission and Anticipated Discharge Date Admission Date: February 06, 2023 Supervising Physician Co-Signing Physician Notes I personally examined the patient and verified all akers points of history and exam, discussed case, and agree with decision making with Dr Garcia No new complaints. Awaiting rehab. Case management notes she can go tomorrow. Vitals noted, in general she is awake and alert pleasant no distress. HEENT normocephalic atraumatic mucous membranes moist. Breathing unlabored no accessory muscle use good effort StrokePlavix added. Would benefit from better sugar control longitudinally. For rehab once it can be facilitated. DVT prophylaxis Lovenox Subjective Chief Complaint: LLE weakness Primary Care Provider: Markus Castillo MD Sofia is an 82-year-old female with PMH of falls, T2DM, HLD, HTN, IBS, and CVA with right-sided LE residual deficits. She presented for worsening LLE weakness and ambulatory dysfunction since a fall on 01/26. Patient ambulates with a walker at baseline. She sustained a ground-level fall onto pavement in her garage on 01/26, and landed on her back, but did not seek medical attention at the time. She was down for >2h before getting back up. Patient lives alone. Hx of balance issues. She notes that the pain is located in her left leg, however she is unable to identify where specifically in her left leg the pain is located. She rates the pain 6/10 at present; 10/10 at worst. She describes it as dull, achy, constant over the past week; she notes it is getting worse every day. She also notes decreased strength and difficulty with walking. Patient manages her own medications. She reports she took all of her morning medications today. No recent changes in medications. No sick contacts. Patient has an elevated BP at 219/121 at time of admission. ED course: NSS 500 mL Magnesium oxide 400 mg p.o. ROS: Patient endorses low-grade fever last night (at 99.9), nightsweats, ongoing nausea, urinary incontinence, and ongoing back pain. Patient denies chills, chest pain, SOB, abdominal pain, saddle anesthesia, or numbness/tingling in LEs. Review of Systems Constitutional: no fever and no chills Eyes: no diplopia Respiratory: no cough, no chest congestion and no dyspnea Cardiovascular: no chest pain, no orthopnea and no palpitations Gastrointestinal: no abdominal pain, no nausea and no vomiting Genitourinary: no dysuria and no urinary frequency Neurologic: + localized weakness (l. lower extremity ); no loss of sensation, no tingling and no numbness Physical Exam Constitutional: WD/WN, vitals as above Eyes: normal visual palafox by confrontation, PERRL, normal accommodation and EOM intact bilaterally Respiratory: normal respiratory effort, lungs clear to auscultation Cardiovascular: RRR, no murmur, no edema Gastrointestinal (Abdomen): normal bowel sounds, soft, nontender, no hepatosplenomegaly Musculoskeletal: Extremities: + abnormal strength (LLE weakness (4/5): hip flexion, knee flexion, knee extension) 5/5 dorsiflexion and plantarflexion Neurologic: normal touch/pain/proprioception, CN's II-XI intact bilaterally and + focal motor deficit (left lower extremity wknss) Motor/Sensory: no sensory deficit Coordination: normal [id number]-qf-xlgy test, normal sqqn-kn-utqp test and normal rapid alternating movements Psychiatric: A+Ox3, euthymic affect Results & Data Results & Data Vital Signs (Past 12 Hours) Vital Signs Temp Pulse Pulse Resp BP BP Pulse Ox 02/07/23 07:33 36.8 C 63 16 142/71 H 96 02/07/23 05:00 69 18 139/76 92 02/07/23 02:00 68 24 151/78 H 96 02/07/23 01:58 69 02/07/23 01:30 67 22 02/07/23 01:00 88 21 02/06/23 23:30 198/88 H 02/06/23 23:30 56 L 21 02/06/23 23:04 56 L 18 205/97 H 95 02/06/23 23:04 02/06/23 23:00 205/97 H 02/06/23 23:00 57 L 16 02/06/23 23:00 56 L 18 205/97 H 94 02/06/23 21:30 52 L 20 94 02/06/23 21:30 210/94 H 02/06/23 21:00 59 L 20 95 02/06/23 21:00 231/140 H 02/06/23 20:30 54 L 23 98 02/06/23 20:30 195/109 H Pulse Ox O2 Del Method O2 Del Method 02/07/23 07:33 Room Air 02/07/23 05:00 Room Air 02/07/23 02:00 Room Air 02/07/23 01:58 02/07/23 01:30 02/07/23 01:00 02/06/23 23:30 02/06/23 23:30 02/06/23 23:04 Room Air 02/06/23 23:04 95 Room Air 02/06/23 23:00 02/06/23 23:00 02/06/23 23:00 Room Air 02/06/23 21:30 Room Air 02/06/23 21:30 02/06/23 21:00 02/06/23 21:00 02/06/23 20:30 02/06/23 20:30 (3) Fall Encounter type: initial encounter Qualified Code(s): W19.XXXA - Unspecified fall, initial encounter
--- NOTE | 2023-02-07 08:59 | Neurology Consultation ---
Date of Consultation February 07, 2023 Assessment & Plan (1) Stroke: (2) Diabetic peripheral neuropathy: (3) H/O: stroke with residual effects: Plan 82-year-old female with history of suboptimally controlled insulin-dependent diabetes mellitus, hyperlipidemia, chronic left cerebellar lacunar infarct, chronic microvascular ischemic disease, and diabetic peripheral neuropathy presenting with mild left hemiparesis over the past few days due to an acute to subacute right hemispheric lacunar infarct. CTA of the head and neck unremarkable. No known history of atrial fibrillation. Agree with addition of Plavix 75 mg/day, continue with dual antiplatelet therapy, Plavix and aspirin for 3 weeks, with then discontinue aspirin in favor of Plavix monotherapy. Continue with atorvastatin 40 mg/day. Patient has been hypertensive, continue medical management of blood pressure, permissive hypertension acceptable acutely, systolic blood pressure 140 to 160 mmHg acutely. Follow-up with results of up-to-date echocardiogram. Consultations with PT/OT/speech therapy. Patient has a follow-up appointment scheduled in our office April 18, 2022, july keep this appointment. History of Present Illness Reason for Consultation: stroke Requesting Physician: Jose L Attending Physician: Mitchell Huang DO History of Present Illness The patient is an 82-year-old female who presented to the emergency department yesterday with a chief complaint of left lower extremity weakness which has been present for a few days complicated by a minor fall. She also endorses some mild weakness of the left arm. She reports that her symptoms have been improving. She denies associated headache or vision disturbance. A CT of the head was negative for hemorrhage or acute process, there was a small chronic lacunar infarct in the left cerebellar hemisphere. A CTA of the head and neck are unremarkable. A brain MRI reveals a subcentimeter focus of restricted diffusion in the right parietal white matter consistent with an acute to subacute lacunar infarct. The chronic left cerebellar lacunar infarct was again seen. There is age-related atrophy and chronic microvascular ischemic disease. I independently reviewed these images. Past medical history notable for insulin-dependent diabetes mellitus that has been suboptimally controlled with a recent hemoglobin A1c of 8.0. Hyperlipidemia that appears to be fairly well controlled with an LDL of 42, triglycerides elevated, 177. I last evaluated this patient in clinic in November 2021 in the context of diabetic peripheral neuropathy, lumbar spinal stenosis, chronic lacunar infarcts, as well as a history of left ophthalmic postherpetic neuralgia for which I have been prescribing her duloxetine. She was last seen in our clinic with Migdalia Sifuentes PA-C, on June 14, 2022, she was to continue with duloxetine. Allergies Allergy/AdvReac Type Severity Reaction Status Date / Time dapsone Allergy Intermediate Rash Verified 02/06/23 17:44 Sulfa (Sulfonamide Allergy Mild Unknown Verified 02/06/23 17:44 Antibiotics) latex Allergy Unknown Unknown Verified 02/06/23 17:44 ciprofloxacin AdvReac Intermediate "i blew up Verified 02/06/23 17:44 like a balloon" per pt adhesive AdvReac Unknown Unknown Verified 02/06/23 17:44 metronidazole [From Flagyl] AdvReac Unknown Unknown Verified 02/06/23 17:44 red dye AdvReac Unknown Unknown Verified 02/06/23 17:44 Home Medications Medication Instructions Recorded Confirmed Type cholecalciferol (vitamin D3) 50 2,000 unit PO QAM 11/11/19 02/06/23 History mcg (2,000 unit) capsule (Vitamin D3) multivit-iron 18 mg-folic acid 400 1 tab PO QAM 11/11/19 02/06/23 History mcg-calcium 500 mg-minerals tablet (Women's One Daily) aspirin 81 mg tablet,delayed 81 mg PO QAM 08/12/20 02/06/23 History release (Kimberly Low Dose Aspirin) OneTouch Verio Reflect Meter #1 ea 08/05/21 08/29/22 Rx (blood-glucose meter) triamcinolone acetonide 55 mcg 1 spray intranasal DAILY PRN 08/26/21 02/06/23 Rx nasal spray aerosol (Nasacort) Congestion #16.9 mL lidocaine 5 % topical patch 1 patch topical DAILY PRN pain 09/26/21 02/06/23 Rx (scale score 7-10) #30 ea hydroxyzine HCl 10 mg tablet 10 mg PO Q6H PRN dizziness or 01/28/22 02/06/23 Rx vertigo #20 tabs methenamine hippurate 1 gram tablet 1 g PO BID #180 tabs 04/13/22 02/06/23 Rx mirabegron 50 mg tablet,extended 50 mg PO DAILY #90 tabs 04/13/22 02/06/23 Rx release 24 hr (Myrbetriq) atorvastatin 40 mg tablet (Lipitor) 40 mg PO HS #90 tabs 04/24/22 02/06/23 Rx pen needle, diabetic 32 gauge x #400 ea 05/12/22 08/29/22 Rx 5/32" (BD Ultra-Fine Cris Pen Needle) diphenoxylate-atropine 2.5 1 tab PO BID PRN diarrhea #180 tabs 07/13/22 02/06/23 Rx mg-0.025 mg tablet (Lomotil) OneTouch Delica Plus Lancet 33 #400 ea 07/28/22 08/29/22 Rx gauge (lancets) vibegron 75 mg tablet (Gemtesa) 75 mg PO DAILY #90 tabs 08/16/22 08/29/22 Rx Lactobacil.acidophilus-Bifido.animalis 1 cap PO DAILY 08/17/22 02/06/23 History 5 billion cell sprinkle capsule (Probiotic) vit C 250 mg-vit E 90 mg-zinc 40 1 tab PO BID 08/17/22 02/06/23 History mg-copper 1 lh-kvqecm-mhxbwg capsule (PreserVision AREDS-2) lisinopril 40 mg tablet 40 mg PO QAM #90 tabs 08/21/22 02/06/23 Rx insulin lispro 100 unit/mL 5 unit (0.05 mL) subcut TID 90 08/29/22 02/06/23 Rx subcutaneous pen (Humalog KwikPen days #15 mL (U-100) Insulin) OneTouch Verio test strips (blood #300 ea 09/07/22 Rx sugar diagnostic) doxazosin 1 mg tablet 1 mg PO DAILY #90 tabs 09/11/22 02/06/23 Rx insulin glargine U-300 conc 300 40 unit (0.1333 mL) subcut QAM 40 12/12/22 02/06/23 Rx unit/mL (1.5 mL) subcutaneous pen units 90 days #12 mL (Toujeo SoloStar U-300 Insulin) duloxetine 60 mg capsule,delayed 60 mg PO QAM 90 days #90 caps 01/04/23 02/06/23 Rx release spironolactone 25 mg tablet 12.5 mg (1/2 x 25 mg) PO DAILY #45 01/31/23 02/06/23 Rx (Aldactone) tabs metoprolol succinate 50 mg 50 mg PO QAM #90 tabs 02/02/23 02/06/23 Rx tablet,extended release 24 hr (Toprol XL) ascorbic acid and sodium 120 1 manny PO DAILY 02/06/23 02/06/23 History mg-zinc oxide,gluconate 20 mg lozenges cranberry 400 mg capsule 400 mg PO DAILY 02/06/23 02/06/23 History Patient History Medical History Lupus Overactive bladder Hypertension Contact dermatitis Chronic cough Rash Herpes zoster, ocular Contusion of leg, left Gross hematuria Physical deconditioning Expressive aphasia UTI (urinary tract infection) Chronic diarrhea Spinal stenosis of lumbar region H/O: stroke with residual effects Cerebrovascular disease Family history of dementia Neurogenic claudication due to lumbar spinal stenosis CAD (coronary artery disease) Arm DVT (deep venous thromboembolism), acute Mitral regurgitation Recurrent UTI Hx of renal calculi C. difficile colitis Surgical History Stented coronary artery History of lithotripsy S/P cardiac catheterization Hx of cholecystectomy Family History Mother Alzheimer disease Hypertension Brother Diabetes Father Hypertension Sister Lung cancer Other Family history non-contributory Stroke Social History Smoking Status: Never smoker Second Hand Exposure: No; Do You Dip or Chew Tobacco: No; Hx Alcohol Use: No Hx Substance Use: No Preferred Language: Samoan Communication Ability: Effective Visual Impairment: No Limitations Hearing Ability: Normal Parking Worker Required: No Beliefs That Will Affect Care: None marital status: / Current Living Situation: Alone current occupational status: retired Feels Safe at Home: Yes Childhood Exposure to Second-Hand Smoke: No Dental Care, Regularly: No Physical Activity Frequency: Does not Exercise Seatbelt Use: always Sunscreen Use: No Assistive Devices: Walker Assistive Devices Comment: new use of walker Review of Systems Constitutional: no fever and no chills Eyes: no blind spots and no diplopia Ear, Nose, Mouth, Throat: no hearing loss Respiratory: no cough and no dyspnea Cardiovascular: no chest pain and no palpitations Gastrointestinal: no nausea and no vomiting Genitourinary: no urinary incontinence Musculoskeletal: + back pain; no myalgia Integumentary: no rash and no lesions Neurologic: as per Subjective / HPI, + gait abnormality, + localized weakness and + loss of sensation; no tremor(s), no headache(s), no confusion and no memory loss Psychiatric: no depression and no anxiety Hematologic / Lymphatic: no easy bleeding and no easy bruising Exam (Neuro) Constitutional: well developed and well nourished; no acute distress Eyes: normal visual palafox by confrontation, PERRL and EOM intact bilaterally; no nystagmus Neurologic: Oriented to:: Person, Place and Time Memory: Short Term Intact and Remote Intact Attention: Span Intact and Concentration Intact Speech Fluency: negative Dysarthria or Dysfluency Speech Aphasia: negative Aphasia Fund of Knowledge: Current Events, Past History and Vocabulary Cranial Nerves: Normal II, III, IV, , V, VIII, IX, X, XI and XII; Abnorm VII (Mild left lower facial droop noted) Motor Strength: Hemiparesis (Very mild left hemiparesis, leg greater than arm); negative Normal Lower Extremities or Normal Upper Extremities Motor Tone: Normal Lower Extremities and Normal Upper Extremities Muscle Bulk/Involuntary Movements: No Involuntary Movements; negative Muscle Atrophy Sensation: Light Touch Intact; negative Pain/Temperature Intact or Proprioception Intact Coordination: Finger-Nose Abnormal Laterality: Left and Heel-Sargent Abnormal Laterality: Left; negative Dysdiadochokinesia Deep Tendon Reflexes: Rt Triceps: 1+, Lt Triceps: 1+, Rt Biceps: 1+, Lt Biceps: 1+, Rt Brachioradialis: 1+, Lt Brachioradialis: 1+, Rt Patellar: 1+, Lt Patellar: 1+, Rt Ankle: 1+ and Lt Ankle: 1+ Special Tests: Babinski Present (Bilateral) Results & Data Vital Signs (Past 12 Hours) Vital Signs Temp Pulse Pulse Resp BP BP Pulse Ox 02/07/23 08:21 65 02/07/23 07:33 36.8 C 63 16 142/71 H 96 02/07/23 05:00 69 18 139/76 92 02/07/23 02:00 68 24 151/78 H 96 02/07/23 01:58 69 02/07/23 01:30 67 22 02/07/23 01:00 88 21 02/06/23 23:30 198/88 H 02/06/23 23:30 56 L 21 02/06/23 23:04 56 L 18 205/97 H 95 02/06/23 23:04 02/06/23 23:00 205/97 H 02/06/23 23:00 57 L 16 02/06/23 23:00 56 L 18 205/97 H 94 02/06/23 21:30 52 L 20 94 02/06/23 21:30 210/94 H 02/06/23 21:00 59 L 20 95 02/06/23 21:00 231/140 H 02/06/23 20:30 54 L 23 98 02/06/23 20:30 195/109 H Pulse Ox O2 Del Method O2 Del Method 02/07/23 08:21 02/07/23 07:33 Room Air 02/07/23 05:00 Room Air 02/07/23 02:00 Room Air 02/07/23 01:58 02/07/23 01:30 02/07/23 01:00 02/06/23 23:30 02/06/23 23:30 02/06/23 23:04 Room Air 02/06/23 23:04 95 Room Air 02/06/23 23:00 02/06/23 23:00 02/06/23 23:00 Room Air 02/06/23 21:30 Room Air 02/06/23 21:30 02/06/23 21:00 02/06/23 21:00 02/06/23 20:30 02/06/23 20:30 Laboratory Results WBC 9.51, hemoglobin 12.6, hematocrit 38.3, platelet count 213, sodium 140, potassium 3.9, BUN 19, creatinine 0.82, glucose 174, hemoglobin A1c 8.0, magnesium 2.4, AST 18, ALT 11, triglycerides 177, cholesterol 116, LDL 42, HDL 39, TSH 4.[address] of the head, CTA of the head and neck, and brain MRI are as described in the HPI, I independently reviewed these images. An electrocardiogram revealed a sinus rhythm with first-degree AV block, 62 bpm. An echocardiogram completed in April 2021 was negative for cardioembolic source, borderline left atrial enlargement, no anterior atrial shunt. Coding Level of Care Code 00348 INT INP/OBS CARE 3/75MIN Diagnoses Stroke I63.9 Diabetic peripheral neuropathy E11.42 H/O: stroke with residual effects I69.30 Time Spent (min) 80
[2023-02-07] MEDS: LANTUS PER UNIT CHARGE SQ SCH (09:59)
--- NOTE | 2023-02-07 13:58 | XCELERA ---
[id number] [id number]
--- NOTE | 2023-02-07 17:58 | Billing Data ---
Date of Service February 07, 2023 Coding Level of Care Code 58605 SUB INP/OBS CARE
[2023-02-08] MEDS: INSULIN ASPART PER UNIT CHARGE SC SCH ×2 (09:01→12:42)
[2023-02-08] MEDS: LANTUS PER UNIT CHARGE SQ SCH (09:01)
[2023-02-08] MEDS: SPIRONOLACTONE 12.5 MG TAB PO SCH (09:02)
[2023-02-08] MEDS: DULoxetine HCL 60 MG CAP PO SCH (09:03)
[2023-02-08] MEDS: METOPROLOL SUCC 50MG EXT REL TAB PO SCH (09:03)
[2023-02-08] MEDS: ADVANCED PROBIOTIC 1250 MG CAPSULE PO SCH (09:03)
[2023-02-08] MEDS: ASPIRIN 81 MG ECTAB PO SCH (09:04)
[2023-02-08] MEDS: DOXAZOSIN MESYLATE 1 MG TAB PO SCH (09:04)
[2023-02-08] MEDS: CLOPIDOGREL BISULFATE 75 MG TAB PO SCH (09:04)
[2023-02-08] MEDS: lisinopril 40 MG TAB PO SCH (09:05)
[2023-02-08] MEDS: VIBEGRON 75 MG TAB PO SCH (09:06)
[2023-02-08] MEDS: LIDOCAINE 5% 1 PATCH TD SCH (09:12)
[2023-02-08] MEDS: ENOXAPARIN INJ 40 MG/0.4 ML SYR SQ SCH (09:13)
--- NOTE | 2023-02-08 10:22 | Pharmacy Report ---
- Date of Service February 08, 2023 - Pharmacy CVA/TIA Medication Review Medications to Prevent Stroke handout has been added to the patients discharge packet. Antiplatelet(s) * Aspirin 81 mg PO daily and Plavix 75 mg PO daily -dual therapy for 3 weeks then stop Aspirin and continue Plavix monotherapy. Cholesterol * High intensity statin: atorvastatin 40 mg daily DVT Prophylaxis * Enoxaparin SQ Therapeutic Anticoagulation * No history of Afib/Aflutter noted Type 2 Diabetes: * Patient has T2DM, but per Dr. Huang, a diabetes medication with proven CVD benefit will be deferred to their outpatient provider due to familiarity with risks/benefits of such therapies. "Medications to prevent stroke" handout has already been added to the patient's discharge packet, which instructs the patient to follow up with their outpatient provider to evaluate which diabetes medication with proven CVD benefit is best for them
[2023-02-08] MEDS ORDERED: STROKE PATIENT DISCHARGE STA (13:26)
--- NOTE | 2023-02-08 16:44 | Discharge Summary ---
Date of Service February 08, 2023 Admission HPI Per Admitting Provider Sofia is an 82-year-old female with PMH of falls, T2DM, HLD, HTN, IBS, and CVA with right-sided LE residual deficits. She presented for worsening LLE weakness and ambulatory dysfunction since a fall on 01/26. Patient ambulates with a walker at baseline. She sustained a ground-level fall onto pavement in her garage on 01/26, and landed on her back, but did not seek medical attention at the time. She was down for >2h before getting back up. Patient lives alone. Hx of balance issues. She notes that the pain is located in her left leg, however she is unable to identify where specifically in her left leg the pain is located. She rates the pain 6/10 at present; 10/10 at worst. She describes it as dull, achy, constant over the past week; she notes it is getting worse every day. She also notes decreased strength and difficulty with walking. Patient manages her own medications. She reports she took all of her morning medications today. No recent changes in medications. No sick contacts. Patient has an elevated BP at 219/121 at time of admission. ED course: NSS 500 mL Magnesium oxide 400 mg p.o. ROS: Patient endorses low-grade fever last night (at 99.9), nightsweats, ongoing nausea, urinary incontinence, and ongoing back pain. Patient denies chills, chest pain, SOB, abdominal pain, saddle anesthesia, or numbness/tingling in LEs. Principal Diagnosis CVA (appearing small vessel) Discharge Exam In general she is awake and alert pleasant no distress. HEENT normocephalic atraumatic mucous membranes moist. Breathing unlabored no accessory muscle use good effort. Skin shows multiple areas of scabs, she does have 1 shallow ulceration on the top of her right shoulder that has a degree of surrounding erythema and a mild degree of induration but no true fluctuance no exudate can be expressed its mildly tender. Discharge Data Allergies Allergy/AdvReac Type Severity Reaction Status Date / Time dapsone Allergy Intermediate Rash Verified 02/06/23 17:44 Sulfa (Sulfonamide Allergy Mild Unknown Verified 02/06/23 17:44 Antibiotics) latex Allergy Unknown Unknown Verified 02/06/23 17:44 ciprofloxacin AdvReac Intermediate "i blew up Verified 02/06/23 17:44 like a balloon" per pt adhesive AdvReac Unknown Unknown Verified 02/06/23 17:44 metronidazole [From Flagyl] AdvReac Unknown Unknown Verified 02/06/23 17:44 red dye AdvReac Unknown Unknown Verified 02/06/23 17:44 Consultations 02/06/23 18:27 ED Decision to Admit Stat 02/06/23 23:40 Consult Neurology Routine Ordered Studies 02/06/23 15:27 CT cervical spine wo con Stat CT head/brain wo con Stat CT lumbar spine wo con Stat 02/06/23 20:04 MRI Brain [MR brain wo con] Urgent 02/06/23 22:36 CT angio head w con Routine CT angio neck with con Routine Hospital Course (1) Stroke: appears to have been a small vessel disease strokelikely from longstanding diabetes. Extensive discussions on lifestyle change, would also strongly consider something like a GLP or SGLT2 after discharge, but if she is able to affect glycemic improvement simply by avoiding simple/starchy/sugary carbohydrates that would obviously be even better. plavix + asa overlap per neuro recommendations then reduce to aspirin alone permissive HTN --> over time more tight control if she can tolerate continue statin - lipids suppressed transfer to rehab, PT/OT ongoing R shoulder small area of cellulitis - no clear drainable abscess. PO abx, serial exams, time. (2) Hypertension: Total Time Total Time Spent Total Time Spent (In Minutes): Less than 30 Discharge Plan Discharge Items Patient Disposition: Home - Self-Care Reason For Visit: LLE DEFICITS Discharge Diagnosis: stroke, left-sided weakness superficial skin ulcer Activity: Resume your previous activity Non-emergency contact: Primary Care Provider Call non-emergency contact if: you have any medication questions and your pain is concerning for you Follow-up/Referrals: Markus Castillo MD [Primary Care Provider] - Diet: Carb Consistent or DM2 Addtl Attending Provider Instructions: You were admitted to the hospital for left-sided weakness, stroke. Also found to have a superficial skin ulcer. You were treated with your home medications, lidocaine patches, and clopidogrel. A discharge summary will be sent to your primary care physician to ensure continuity of care. Please bring this discharge summary with you to your next office appointment so that your provider can review it at that time. Follow-up appointments: We have requested a follow-up appointment with your primary care physician within one week of discharge. Please call their office if you do not hear from them. Keep all your follow-up appointments as already scheduled. If you cannot make an appointment, notify your provider. Medications: Your medication list has been reviewed and reconciled upon discharge to ensure accuracy and continuity of care. An updated list of all your medications is included with your hospital discharge paperwork. Please review this list closely, and make note of any changes. We want you to continue taking Plavix (clopidogrel). Take Plavix 75 mg, by mouth, one tablet, daily, indefinitely. We want you to continue taking aspirin. Take aspirin 81 mg, one tablet, daily, for 21 days. Then, stop taking it and only take Plavix. We want you to start taking cephalexin. Take aspirin 500 mg, one tablet, four times a day, for 7 days. Take your medications as instructed; do not skip a dose of your medicines. Make sure all of your doctors know every medicine you are taking (including nowy-rtr-gkqusbb medicines, vitamins, and supplements). Call your primary care provider before taking any new medicines (including xfxq-qou-xhcsvun medicines, vitamins, and supplements), because some of these may interact with your current medications, or may make your symptoms worse. Tell your primary care provider if you cannot afford your medications. CONTACT YOUR PRIMARY CARE PROVIDER if you experience any of the following: worsening left leg weakness, pain, or any focal neurologic deficits Difficulty following your treatment plan, or difficulty taking medications CALL 911 OR GO TO THE EMERGENCY DEPARTMENT if you experience any of the following: Sudden, severe abdominal pain or nausea/vomiting Severe chest pain, or chest pain that radiates (moves) to your jaw or arm Sudden, severe shortness of breath or difficulty breathing Thank you for allowing us to participate in your care Pending Studies at Discharge: No Stand-Alone Forms: My [facility], Smoking Cessation, Medications to Prevent Stroke Medications and DC Order Prescriptions: New cephalexin 500 mg capsule 500 mg PO QID 7 Days Qty: 28 0RF clopidogrel 75 mg tablet 75 mg PO DAILY Qty: 60 0RF Continued (DME) blood-glucose meter [OneTouch Verio Reflect Meter] Misc See Rx Instructions .Route Qty: 1 0RF Rx Instructions: As directed triamcinolone acetonide [Nasacort] 55 mcg aerosol,spray 1 spray INTNAS DAILY PRN (Reason: Congestion) Qty: 16.9 0RF Rx Instructions: Administer into each nostril lidocaine 5 % adhesive patch,medicated 1 patch topical DAILY PRN (Reason: pain (scale score 7-10)) Qty: 30 5RF Rx Instructions: leave on most painful area for up to 12 hrs atorvastatin [Lipitor] 40 mg tablet 40 mg PO HS Qty: 90 3RF (DME) pen needle, diabetic [BD Ultra-Fine Cris Pen Needle] 32 gauge x 5/32" needle See Rx Instructions .ROUTE .MEDSUPPLY Qty: 400 3RF Rx Instructions: use 4 per day with insulin injections diphenoxylate-atropine [Lomotil] 2.5-0.025 mg tablet 1 tab PO BID PRN (Reason: diarrhea) Qty: 180 1RF (DME) lancets [OneTouch Delica Plus Lancet] 33 gauge misc See Rx Instructions .ROUTE .MEDSUPPLY Qty: 400 3RF Rx Instructions: use to test 4 times daily lisinopril 40 mg tablet 40 mg PO QAM Qty: 90 3RF (DME) OneTouch Verio test strips Strip See Rx Instructions .ROUTE .MEDSUPPLY Qty: 300 3RF Rx Instructions: test 3 times daily doxazosin 1 mg tablet 1 mg PO DAILY Qty: 90 3RF Toujeo SoloStar U-300 Insulin 300 unit/mL (1.5 mL) insulin pen 40 unit SUBCUT QAM 90 Days Qty: 12 3RF duloxetine 60 mg capsule,delayed release(DR/EC) 60 mg PO QAM 90 Days Qty: 90 1RF spironolactone [Aldactone] 25 mg tablet 12.5 mg PO DAILY Qty: 45 1RF metoprolol succinate [Toprol XL] 50 mg tablet extended release 24 hr 50 mg PO QAM Qty: 90 3RF aspirin [Kimberly Low Dose Aspirin] 81 mg tablet,delayed release (DR/EC) 81 mg PO QAM insulin lispro [Humalog KwikPen Insulin] 100 unit/mL insulin pen 5 unit subcut TID 90 Days Qty: 15 3RF Gemtesa 75 mg tablet 75 mg PO DAILY Qty: 90 3RF Myrbetriq 50 mg tablet extended release 24 hr 50 mg PO DAILY Qty: 90 3RF methenamine hippurate 1 gram tablet 1 g PO BID Qty: 180 3RF cholecalciferol (vitamin D3) [Vitamin D3] 50 mcg (2,000 unit) Capsule 2,000 unit PO QAM Women's One Daily 18 mg iron-400 mcg-500 mg Ca Tablet 1 tab PO QAM Probiotic 5 billion cell Capsule, Sprinkle 1 cap PO DAILY PreserVision AREDS-2 250-90-40-1 mg Capsule 1 tab PO BID hydroxyzine HCl 10 mg tablet 10 mg PO Q6H PRN (Reason: dizziness or vertigo) Qty: 20 0RF cranberry 400 mg Capsule 400 mg PO DAILY Rx Instructions: administer with a meal ascorbic acid,sod-zinc ox,gluc 120-20 mg Lozenge 1 manny PO DAILY Discharge Orders: Discharge Order (Routine); Ordered 02/08/23 Ordered By: Elías Currie/Other Patient Handouts: Managing Type 2 Diabetes, Special Foot [facility] for Diabetes Admission Data Admit Date/Time: 02/06/23 23:15 Attending Provider: Mitchell Huang Admit Provider: Rolando Jaimes Primary Care Provider: Markus Castillo V. Other Providers: [facility]; Rolando Jaimes; Luiz Feliz Other Interventions: Discharge Summary Assessment (RN) Last Done: 02/08/23 13:45 Coding Level of Care Code 24890 IN/OBS DISCH 30 MIN/LESS Diagnoses Stroke I63.9 Hypertension I10
== END 2023-02-08 14:18 | DRG 65 ==
LOC: ED 15:22 → EDINP 15:22 → 2S 23:05 → SUATTDRO 23:15 → 2S 02-07 21:18

== ENCOUNTER 2023-07-22 10:48 | Inpatient (IN) ==
--- NOTE | 2023-07-22 11:09 | Emergency Department Note ---
Impression & Plan Fall from standing, Closed left humeral fracture, Ambulatory dysfunction ED Provider Note HISTORY OF PRESENT ILLNESS: Patient is an 82-year-old female presenting with neck pain, left shoulder pain and abdominal pain after a fall. Patient reports she was making breakfast when she turned to throw something out and slipped on the floor. Reports that she struck her left side of her head against the cabinets and fell onto her left side. Currently complaining of left shoulder pain and neck pain. She denies any numbness or tingling in her extremities. Denies any chest pain, shortness of breath or lightheadedness prior to the fall. Reports she did just lose her balance. She reports her tetanus is up-to-date. Denies any nausea or vomiting. Patient denies loss of consciousness. She is on Plavix. ROS: as above PHYSICAL EXAM: Constitutional: Patient appears in no acute distress. HENT: Head: Normocephalic. Hematoma to the left anterior crown of the head. Eyes: EOMI, PERRL Mouth/Throat: Mucous membranes moist. Neck: Trachea midline. Neck supple. Cervical collar in place. Midline cervical spine tenderness to palpation. Cardiovascular: RRR, No murmurs, rubs or gallops. Intact distal pulses. Pulmonary/Chest: No respiratory distress. Breath sounds clear and equal bilaterally. No wheezes or rales. Abdominal: Abdomen soft, no rebound or guarding. Diffuse tenderness to palpation Back: No midline spinal tenderness, no paraspinal tenderness, no CVA tenderness. Musculoskeletal: No tenderness palpation of the pelvis. Patient is able to straight leg raise bilaterally. Abrasion to the left elbow. Patient has diffuse tenderness to palpation to the left shoulder and is unable to range it secondary to pain. No open wounds or obvious deformity. Skin: Warm and dry. No rash, erythema, pallor or cyanosis Psychiatric: Appropriate mood and affect for situation. Neurological: Alert and keenly responsive. CN II-XII grossly intact, moving all extremities spontaneously. MDM: - Vitals signs showed hypertension - History obtained via patient. History as above. - Chronic conditions affecting care: HTN; DM-2; HLD; CAD (s/p PCI) - Differential diagnoses include, but are not limited to: intracranial hemorrhage; humerus fracture; pneumothorax; liver laceration - Order placed for continuous cardiac monitoring. At this time, monitor showed rate of 72 bpm with normal sinus rhythm, per my interpretation. - External medical records reviewed. EMS run sheet was reviewed. Patient was brought in by [facility]. She was given 100 mcg of fentanyl at 1030 and 4 mg of Zofran. - EKG interpreted by myself showed normal sinus rhythm. Rate 70 bpm. QT 412. No acute ischemic changes. - Laboratory workup interpreted by myself showed normal WBC; stable electrolytes; normal lactate; normal troponin - Xray left shoulder shows proximal humerus fracture, per my interpretation. Patient's arm placed in sling. - CT head wo contrast negative for acute intracranial pathology, per radiology. Noted to have large subcutaneous left superior fontal scalp hematoma. - CT cervical spine wo contrast negative for acute pathology - CT chest/abdomen/pelvis with IV contrast showed acute left proximal humerus fracture. No traumatic intra-abdominal or intrapelvic abnormality. No pneumothorax. - UA negative for infection - Patient initially given 50 mcg IV fentanyl for pain control. However, she remained in significant pain and was given 0.5 mg IV dilaudid. - The patient's cervical collar was removed today. The patient's imaging was reviewed and the CT C-Spine was negative for acute injury. The patient was alert and oriented prior to her exam. On exam, she was non-tender to palpation midline and had full ROM without any neurologic deficits. The patient tolerated this procedure well. - Patient reports she lives home alone and ambulates with a walker. She states she has 3 different levels to her house with about 3 stairs in between each level. Reports that she has a walker on each level. Attempted to walk the patient in the emergency department, but we were unsuccessful. - Discussion was had with heel caser about patient's case and need for admission - Hospitalist consulted for admission - [facility] ASSESSMENT AND PLAN: Diagnosis: fall from standing; closed left humeral fracture; ambulatory dysfunction Plan: admit Past Med/Surg History Problem List (Updated 07/22/23 @ 14:25 by Urmila Glover MD) Ambulatory dysfunction (Acute) Closed left humeral fracture (Acute) Fall from standing (Acute) Balance problem Low back pain Stroke Lupus Overactive bladder Hypomagnesemia (Acute) Fall (Acute) Lumbar contusion (Acute) Left leg weakness (Acute) Nonproliferative diabetic retinopathy CAD (coronary artery disease) Diabetic peripheral neuropathy Abnormal thyroid blood test Interstitial lung disease Localized swelling of both lower legs Hypoglycemia Stented coronary artery Loss of protective sensation of skin of foot H/O: stroke with residual effects Type 2 diabetes mellitus with insulin therapy Albuminuria Recurrent UTI (urinary tract infection) Urine incontinence (Chronic) Diabetes mellitus type 2, uncontrolled (Chronic) Age-related cognitive decline (Chronic) Diabetic peripheral neuropathy associated with type 2 diabetes mellitus (Acute) Gait disturbance (Acute) Hyperlipidemia (Acute) Hypertension (Chronic) IBS (irritable bowel syndrome) (Acute) Nephrolithiasis (Acute) Neuropathic pain of both feet (Acute) Vitamin D deficiency disease (Acute) Medical History Lupus Overactive bladder Hypertension Contact dermatitis Chronic cough Rash Herpes zoster, ocular Contusion of leg, left Gross hematuria Physical deconditioning Expressive aphasia UTI (urinary tract infection) Chronic diarrhea Spinal stenosis of lumbar region H/O: stroke with residual effects Cerebrovascular disease Family history of dementia Neurogenic claudication due to lumbar spinal stenosis CAD (coronary artery disease) Arm DVT (deep venous thromboembolism), acute Mitral regurgitation Recurrent UTI Hx of renal calculi C. difficile colitis Surgical History Stented coronary artery History of lithotripsy S/P cardiac catheterization Hx of cholecystectomy Family History Mother Alzheimer disease Hypertension Brother Diabetes Father Hypertension Sister Lung cancer Other Family history non-contributory Stroke Social History Smoking Status: Never smoker Second Hand Exposure: No; Do You Dip or Chew Tobacco: No; Hx Alcohol Use: No Hx Substance Use: No Preferred Language: Urdu Communication Ability: Effective Visual Impairment: No Limitations Hearing Ability: Normal Nurse Monitoring Required: No Beliefs That Will Affect Care: None marital status: / Current Living Situation: Alone current occupational status: retired Feels Safe at Home: Yes Childhood Exposure to Second-Hand Smoke: No Dental Care, Regularly: No Physical Activity Frequency: Does not Exercise Seatbelt Use: always Sunscreen Use: No Assistive Devices: Walker Allergies Allergies Allergy/AdvReac Type Severity Reaction Status Date / Time dapsone Allergy Intermediate Rash Verified 06/06/23 13:57 Sulfa (Sulfonamide Allergy Mild Unknown Verified 06/06/23 13:57 Antibiotics) latex Allergy Unknown Unknown Verified 06/06/23 13:57 ciprofloxacin AdvReac Intermediate "i blew up Verified 06/06/23 13:57 like a balloon" per pt adhesive AdvReac Unknown Unknown Verified 06/06/23 13:57 metronidazole [From Flagyl] AdvReac Unknown Unknown Verified 06/06/23 13:57 red dye AdvReac Unknown Unknown Verified 06/06/23 13:57 Home Meds Home Medications Medication Instructions Recorded Confirmed cholecalciferol (vitamin D3) 50 2,000 unit PO QAM 11/11/19 06/06/23 mcg (2,000 unit) capsule (Vitamin D3) multivit-iron 18 mg-folic acid 400 1 tab PO QAM 11/11/19 06/06/23 mcg-calcium 500 mg-minerals tablet (Women's One Daily) Lactobacil.acidophilus-Bifido.animalis 1 cap PO DAILY 08/17/22 06/06/23 5 billion cell sprinkle capsule (Probiotic) vit C 250 mg-vit E 90 mg-zinc 40 1 tab PO BID 08/17/22 06/06/23 mg-copper 1 wz-grxkwe-cnudum capsule (PreserVision AREDS-2) cranberry 400 mg capsule 400 mg PO DAILY 02/06/23 06/06/23 vibegron 75 mg tablet (Gemtesa) 75 mg PO DAILY 05/17/23 06/06/23 Previous Rx's Medication Instructions Recorded OneTouch Verio Reflect Meter #1 ea 08/05/21 (blood-glucose meter) triamcinolone acetonide 55 mcg 1 spray intranasal DAILY PRN 08/26/21 nasal spray aerosol (Nasacort) Congestion #16.9 mL hydroxyzine HCl 10 mg tablet 10 mg PO Q6H PRN dizziness or 01/28/22 vertigo #20 tabs OneTouch Delica Plus Lancet 33 #400 ea 07/28/22 gauge (lancets) insulin lispro 100 unit/mL 5 unit (0.05 mL) subcut TID 90 08/29/22 subcutaneous pen (Humalog KwikPen days #15 mL (U-100) Insulin) OneTouch Verio test strips (blood #300 ea 09/07/22 sugar diagnostic) duloxetine 60 mg capsule,delayed 60 mg PO QAM 90 days #90 caps 04/18/23 release atorvastatin 40 mg tablet (Lipitor) 40 mg PO HS #90 tabs 04/25/23 clopidogrel 75 mg tablet (Plavix) 75 mg PO DAILY #30 tabs 04/25/23 doxazosin 1 mg tablet 1 mg PO DAILY #30 tabs 04/25/23 lisinopril 40 mg tablet 40 mg PO QAM #30 tabs 04/25/23 metoprolol succinate 50 mg 50 mg PO QAM #90 tabs 04/25/23 tablet,extended release 24 hr (Toprol XL) spironolactone 25 mg tablet 12.5 mg (1/2 x 25 mg) PO DAILY #45 04/25/23 (Aldactone) tabs insulin glargine U-300 conc 300 40 unit (0.1333 mL) subcut QAM 40 04/26/23 unit/mL (1.5 mL) subcutaneous pen units 90 days #13.5 mL (Toujeo SoloStar U-300 Insulin) lidocaine 5 % topical patch 1 patch topical DAILY PRN pain 05/03/23 (scale score 7-10) #30 ea pen needle, diabetic 32 gauge x #400 ea 05/16/2332" (BD Ultra-Fine Cris Pen Needle) tramadol 50 mg tablet 50 mg PO BID PRN pain #30 tabs 05/17/23 methenamine hippurate 1 gram tablet 1 g PO BID #180 tabs 07/06/23 methenamine hippurate 1 gram tablet 1 g PO BID #30 tabs 07/06/23 diphenoxylate-atropine 2.5 1 tab PO BID PRN diarrhea #180 tabs 07/17/23 mg-0.025 mg tablet (Lomotil) Results & Data (ED) Vital Signs Vital Signs - 24 hr 07/22/23 10:49 07/22/23 11:13 07/22/23 11:21 Temperature 36.5 C Temperature Source Oral Pulse Rate 70 69 Pulse Rate [Right Finger] Pulse Rhythm [Right Finger] Pulse Strength [Right Finger] Respiratory Rate 16 Respiratory Effort / Characteristics Non-Labored Spontaneous Respiratory Depth Normal Respiratory Pattern Blood Pressure 219/114 H Blood Pressure [Right Arm] Blood Pressure Mean 149 Blood Pressure Mean [Right Arm] Blood Pressure Position [Right Arm] Pulse Oximetry 97 97 Oxygen Delivery Method Room Air Room Air Sepsis Recent Fever Within 48 Hours No Sepsis New/Unexplained Change in Mental Status N/A Sepsis Action Taken by Nursing No Action Required 07/22/23 12:08 07/22/23 14:04 Temperature Temperature Source Pulse Rate Pulse Rate [Right Finger] 72 74 Pulse Rhythm [Right Finger] Regular Pulse Strength [Right Finger] Normal Respiratory Rate 24 20 Respiratory Effort / Characteristics Non-Labored Spontaneous Non-Labored Spontaneous Respiratory Depth Normal Normal Respiratory Pattern Regular Blood Pressure Blood Pressure [Right Arm] 223/113 H 135/70 Blood Pressure Mean Blood Pressure Mean [Right Arm] 149 91 Blood Pressure Position [Right Arm] Sitting Pulse Oximetry 95 92 Oxygen Delivery Method Room Air Room Air Sepsis Recent Fever Within 48 Hours Sepsis New/Unexplained Change in Mental Status Sepsis Action Taken by Nursing Laboratory Data 07/22/23 11:18 07/22/23 11:18 Lab Results 07/22/23 07/22/23 07/22/23 Range/Units 11:18 11:24 12:05 WBC 8.93 (4.8-10.8) K/ul RBC 4.69 (4.20-5.40) M/uL Hgb 14.1 (12.0-16.0) g/dl POC Hgb 14.6 (12.0-16.0) g/dl Hct 42.5 (37.0-47.0) % POC Hct 43 (37-47) % MCV 90.6 (80.0-100.0) fL MCH 30.1 (25.0-34.0) pg MCHC 33.2 (32.0-36.0) g/dL RDW Std Deviation 43.0 (36.4-46.3) fL RDW Coeff of Linda 13.0 (11.5-14.5) % Plt Count 218 (130-400) K/uL MPV 10.1 (9.4-12.4) fL Immature Gran % (Auto) 0.4 % Neut % (Auto) 69.3 % Lymph % (Auto) 20.6 % Stark % (Auto) 7.8 % Eos % (Auto) 1.5 % Baso % (Auto) 0.4 % Neut # (Auto) 6.18 (1.40-6.50) K/uL Lymph # (Auto) 1.84 (1.20-3.40) K/uL Stark # (Auto) 0.70 H (0.11-0.59) K/uL Eos # (Auto) 0.13 (0.00-0.50) K/uL Baso # (Auto) 0.04 (0.00-0.20) K/uL Immature Gran # (Auto) 0.04 (0.01-0.20) K/uL PT 10.9 (9.0-12.0) Seconds INR 1.0 (0.9-1.1) POC Sodium 143 (135-144) mmol/L Sodium 141 (136-145) mmol/L POC Potassium 4.1 (3.3-5.0) mmol/L Potassium 4.1 (3.5-5.1) mmol/L POC Chloride 103 (101-112) mmol/L Chloride 105 (98-107) mmol/L Carbon Dioxide 28 (21-32) mmol/L POC Total CO2 28 (24-31) mmol/L Anion Gap 8 (3-11) POC Anion Gap 16.0 (16-25) mmol/L POC BUN 26 H (7-18) mg/dl BUN 23 (6-23) mg/dl Creatinine 0.84 (0.6-1.2) mg/dl POC Creatinine 0.8 (0.6-1.3) mg/dl Est Cr Clr Drug Dosing 44.4 ml/min Est GFR ( Amer) 75.0 ml/min Est GFR (Non-Af Amer) 64.7 ml/min BUN/Creatinine Ratio 27.4 H (10-20) Glucose 93 (70-99(Fasting)) mg/dl POC Glucose (other) 92 (70-99) mg/dl Lactate (0.4-2.0) mmol/L Calcium 10.3 (8.6-10.3) mg/dl POC Ioniz Calcium Macy 1.23 (1.12-1.32) mmol/l Total Bilirubin 0.7 (0.2-1.0) mg/dl AST 22 (13-39) U/L ALT 17 (7-52) U/L Alkaline Phosphatase 70 (34-104) U/L Troponin I High Sens 11.2 (0-14) pg/ml Total Protein 8.1 (6.0-8.3) gm/dl Albumin 4.7 (3.4-5.0) gm/dl Globulin 3.4 (2.5-4.0) gm/dl Albumin/Globulin Ratio 1.4 (0.9-2) Urine Color Yellow Urine Appearance Clear (Clear) Urine pH 6.5 (4.5-7.5) Ur Specific Converse 1.013 (1.000-1.030) Urine Protein Negative (Negative) Urine Glucose (UA) Trace H (Negative) Urine Ketones Negative (Negative) Urine Blood Negative (Negative) Urine Nitrite Negative (Negative) Urine Bilirubin Negative (Negative) Urine Urobilinogen Negative (Negative) Ur Leukocyte Esterase Negative (Negative) 07/22/23 Range/Units 12:07 WBC (4.8-10.8) K/ul RBC (4.20-5.40) M/uL Hgb (12.0-16.0) g/dl POC Hgb (12.0-16.0) g/dl Hct (37.0-47.0) % POC Hct (37-47) % MCV (80.0-100.0) fL MCH (25.0-34.0) pg MCHC (32.0-36.0) g/dL RDW Std Deviation (36.4-46.3) fL RDW Coeff of Linda (11.5-14.5) % Plt Count (130-400) K/uL MPV (9.4-12.4) fL Immature Gran % (Auto) % Neut % (Auto) % Lymph % (Auto) % Stark % (Auto) % Eos % (Auto) % Baso % (Auto) % Neut # (Auto) (1.40-6.50) K/uL Lymph # (Auto) (1.20-3.40) K/uL Stark # (Auto) (0.11-0.59) K/uL Eos # (Auto) (0.00-0.50) K/uL Baso # (Auto) (0.00-0.20) K/uL Immature Gran # (Auto) (0.01-0.20) K/uL PT (9.0-12.0) Seconds INR (0.9-1.1) POC Sodium (135-144) mmol/L Sodium (136-145) mmol/L POC Potassium (3.3-5.0) mmol/L Potassium (3.5-5.1) mmol/L POC Chloride (101-112) mmol/L Chloride (98-107) mmol/L Carbon Dioxide (21-32) mmol/L POC Total CO2 (24-31) mmol/L Anion Gap (3-11) POC Anion Gap (16-25) mmol/L POC BUN (7-18) mg/dl BUN (6-23) mg/dl Creatinine (0.6-1.2) mg/dl POC Creatinine (0.6-1.3) mg/dl Est Cr Clr Drug Dosing ml/min Est GFR ( Amer) ml/min Est GFR (Non-Af Amer) ml/min BUN/Creatinine Ratio (10-20) Glucose (70-99(Fasting)) mg/dl POC Glucose (other) (70-99) mg/dl Lactate 2.0 (0.4-2.0) mmol/L Calcium (8.6-10.3) mg/dl POC Ioniz Calcium Macy (1.12-1.32) mmol/l Total Bilirubin (0.2-1.0) mg/dl AST (13-39) U/L ALT (7-52) U/L Alkaline Phosphatase (34-104) U/L Troponin I High Sens (0-14) pg/ml Total Protein (6.0-8.3) gm/dl Albumin (3.4-5.0) gm/dl Globulin (2.5-4.0) gm/dl Albumin/Globulin Ratio (0.9-2) Urine Color Urine Appearance (Clear) Urine pH (4.5-7.5) Ur Specific Converse (1.000-1.030) Urine Protein (Negative) Urine Glucose (UA) (Negative) Urine Ketones (Negative) Urine Blood (Negative) Urine Nitrite (Negative) Urine Bilirubin (Negative) Urine Urobilinogen (Negative) Ur Leukocyte Esterase (Negative) Administered Medications Discontinued Medications Fentanyl Citrate (Fentanyl Citrate Pf 100 Mcg/2 Ml Vial) 50 mcg IV NOW STA Stop: 07/22/23 11:06 Last Admin: 07/22/23 11:21 Dose: 50 mcg Documented By: SWD Hydromorphone HCl (Hydromorphone Inj 0.5 Mg/0.5 Ml Syr) 0.5 mg IV NOW STA Stop: 07/22/23 12:55 Last Admin: 07/22/23 13:06 Dose: 0.5 mg Documented By: JACK Ioversol (Optiray 320 100ml) 91 ml IV ONCE ONE Stop: 07/22/23 11:42 Last Admin: 07/22/23 11:41 Dose: 91 ml Documented By: EDK Imaging Data Radiologist's Impression: Shoulder X-Ray 07/22/23 11:05 XR shoulder LT min 2V routine HISTORY: 82 years-old Female shoulder pain s/p fall acute left shoulder pain status post fall COMPARISON: Chest CT of same day TECHNIQUE: 2 views of the left shoulder FINDINGS: Mild AC joint with moderate glenohumeral osteoarthritis. No dislocation. There is an acute comminuted proximal left humeral fracture with involvement of the greater and lesser tuberosities and surgical neck. 1 cm lateral displacement of the greater tuberosity fracture. IMPRESSION: Acute comminuted mildly displaced proximal left humeral fracture. ACT 112: Negative or not required by law. The above report was generated using voice recognition software. It may contain grammatical, syntax or spelling errors. Electronically signed by: Jarad Valdez M.D. 07/22/2023 12:36 PM Abdomen/Pelvis CT 07/22/23 11:[address] WITH CONTRAST; CT ABDOMEN AND PELVIS WITH IV CONTRAST ONLY HISTORY: Chest and abdominal trauma status post fall Trauma TECHNIQUE: Multiaxial CT images of the chest were performed following the IV administration of 91 cc of Optiray. A dose lowering technique was utilized adhering to the principles of ALARA. COMPARISON: Chest CT April 06, 2022, CT abdomen and pelvis 10/27/2019. FINDINGS: CT CHEST: 2.1 cm hypodense thyroid nodule. 1.3 x 1.8 cm precarinal lymph node is stable and likely benign. Moderate cardiomegaly. Extensive coronary artery calcifications. No pericardial effusion. No thoracic aortic aneurysm or dissection. Unremarkable pulmonary artery. No pneumothorax, pleural effusion, airspace consolidation or pulmonary edema. Subpleural reticulation/fibrosis redemonstrated with low suspicion for subpleural solid nodules measuring up to 4 mm. There is a mild traction bronchiectasis with mild subpleural honeycombing. There is an acute comminuted and mildly displaced fracture involving the greater and lesser tuberosities and surgical neck of the left humerus with approximately 1 cm lateral displacement. No dislocation. No additional acute fracture identified. CT ABDOMEN/PELVIS: No free air. Unremarkable spleen, moderately atrophic pancreas and liver. Mild intrahepatic and extrahepatic biliary ductal dilation, likely secondary to cholecystectomy. Patency of the hepatic and portal veins. Bilateral adrenal gland nodules measure 1.7 cm on the left and 0.9 cm on the right. These are stable and likely benign. Cortical thinning of the kidneys bilaterally with a few cysts. Bilateral extrarenal pelves.. Bladder distention with mild wall thickening. Nonspecific thickening of the postmenopausal endometrium, 8 mm. 11 mm hypodense right uterine fundal lesion, possibly a fibroid. Atherosclerosis of the aorta. No lymphadenopathy. Small hiatal hernia. Duodenal diverticula. Colonic diverticulosis. No free fluid. Mild to moderate colonic fecal retention. Normal appendix. Diastases recti. No acute fracture identified. L5 chronic wedge deformity. IMPRESSION: 1. Acute, comminuted and mildly displaced left proximal humeral fracture. 2. No pneumothorax. 3. Chronic interstitial lung disease. 4. No acute posttraumatic intra-abdominal or intrapelvic abnormality. 5. Mild nonspecific thickening of the postmenopausal endometrium. 6. Additional incidental findings as above. ACT 112: Negative or not required by law. Electronically signed by: Jarad Valdez M.D. 07/22/2023 12:[address] 07/22/23 11:06 CT cervical spine wo con CT DOSE: 3094.63 mGy.cm CLINICAL HISTORY: 82 years-old Female with Trauma. Acute neck pain status post trauma COMPARISON: 02/06/2023 TECHNIQUE: Multiple axial CT images of the cervical spine were obtained without contrast. A dose lowering technique was utilized adhering to the principles of ALARA. FINDINGS: Demineralized appearance of the bones. There is no evidence of fracture or subluxation involving the cervical spine. Vertebral body height is maintained. There is minimal anterolisthesis at C6-C7. Alignment is otherwise preserved. There is straightening of the cervical lordosis. Anterior osteophytes are seen throughout. The odontoid process and lateral masses are intact. The atlantoaxial articulation is preserved noting advanced productive degenerative change. The spinous processes appear intact. There is mild/moderate multilevel cervical spondylosis. Uncovertebral and facet arthropathy contribute to neural foraminal narrowing at several levels. There is severe disc space narrowing at C5-C6 with associated endplate sclerosis. Only mild narrowing is seen at the remaining cervical levels. Posterior disc osteophyte complexes at C4-C5 and, C5- C6, and C6-C7 may contribute to acquired compromising the central canal. The cervical soft tissues appear unremarkable. The visualized lung apices appear clear. IMPRESSION: No acute cervical spine fracture or subluxation. ACT 112: Negative or not required by law. The above report was generated using voice recognition software. It may contain grammatical, syntax or spelling errors. Electronically signed by: Jarad Valdez M.D. 07/22/2023 12:[address] 07/22/23 11:[address] WITH CONTRAST; CT ABDOMEN AND PELVIS WITH IV CONTRAST ONLY HISTORY: Chest and abdominal trauma status post fall Trauma TECHNIQUE: Multiaxial CT images of the chest were performed following the IV administration of 91 cc of Optiray. A dose lowering technique was utilized adhering to the principles of ALARA. COMPARISON: Chest CT April 06, 2022, CT abdomen and pelvis 10/27/2019. FINDINGS: CT CHEST: 2.1 cm hypodense thyroid nodule. 1.3 x 1.8 cm precarinal lymph node is stable and likely benign. Moderate cardiomegaly. Extensive coronary artery calcifications. No pericardial effusion. No thoracic aortic aneurysm or dissection. Unremarkable pulmonary artery. No pneumothorax, pleural effusion, airspace consolidation or pulmonary edema. Subpleural reticulation/fibrosis redemonstrated with low suspicion for subpleural solid nodules measuring up to 4 mm. There is a mild traction bronchiectasis with mild subpleural honeycombing. There is an acute comminuted and mildly displaced fracture involving the greater and lesser tuberosities and surgical neck of the left humerus with approximately 1 cm lateral displacement. No dislocation. No additional acute fracture identified. CT ABDOMEN/PELVIS: No free air. Unremarkable spleen, moderately atrophic pancreas and liver. Mild intrahepatic and extrahepatic biliary ductal dilation, likely secondary to cholecystectomy. Patency of the hepatic and portal veins. Bilateral adrenal gland nodules measure 1.7 cm on the left and 0.9 cm on the right. These are stable and likely benign. Cortical thinning of the kidneys bilaterally with a few cysts. Bilateral extrarenal pelves.. Bladder distention with mild wall thickening. Nonspecific thickening of the postmenopausal endometrium, 8 mm. 11 mm hypodense right uterine fundal lesion, possibly a fibroid. Atherosclerosis of the aorta. No lymphadenopathy. Small hiatal hernia. Duodenal diverticula. Colonic diverticulosis. No free fluid. Mild to moderate colonic fecal retention. Normal appendix. Diastases recti. No acute fracture identified. L5 chronic wedge deformity. IMPRESSION: 1. Acute, comminuted and mildly displaced left proximal humeral fracture. 2. No pneumothorax. 3. Chronic interstitial lung disease. 4. No acute posttraumatic intra-abdominal or intrapelvic abnormality. 5. Mild nonspecific thickening of the postmenopausal endometrium. 6. Additional incidental findings as above. ACT 112: Negative or not required by law. Electronically signed by: Jarad Valdez M.D. 07/22/2023 12:[address] 07/22/23 11:06 CT head/brain wo con CLINICAL HISTORY: 82 years-old Female with Trauma. Acute head trauma TECHNIQUE: Multiple axial CT images of the head were obtained without contrast. A dose lowering technique was utilized adhering to the principles of ALARA. COMPARISON: 04/25/2023 FINDINGS: No acute intracranial hemorrhage, midline shift, intracranial mass, hydrocephalus, territorial ischemia or abnormal extra-axial collection. Involutional changes with chronic microvascular ischemic disease. Chronic basal ganglia lacunar infarcts. The calvarium is intact. Left frontal scalp subcutaneous hematoma measures 10 x 3 cm. The paranasal sinuses, mastoid air cells, and middle ear cavities are clear. IMPRESSION: 1. No acute intracranial abnormality or calvarial fracture. 2. Large subcutaneous left superior frontal scalp hematoma/contusion. ACT 112: Negative or not required by law. The above report was generated using voice recognition software. It may contain grammatical, syntax or spelling errors. Electronically signed by: Jarad Valdez M.D. 07/22/2023 12:14 PM Discharge Plan Visit Data Chief Complaint: Fall ED Provider: Urmila Glover Discharge Problem: Fall from standing, Closed left humeral fracture, Ambulatory dysfunction Forms Stand Alone Forms: [facility] Prescriptions Prescriptions: No Action (DME) blood-glucose meter [OneTouch Verio Reflect Meter] Misc See Rx Instructions .Route Qty: 1 0RF Rx Instructions: As directed triamcinolone acetonide [Nasacort] 55 mcg aerosol,spray 1 spray INTNAS DAILY PRN (Reason: Congestion) Qty: 16.9 0RF Rx Instructions: Administer into each nostril (DME) lancets [OneTouch Delica Plus Lancet] 33 gauge misc See Rx Instructions .ROUTE .MEDSUPPLY Qty: 400 3RF Rx Instructions: use to test 4 times daily (DME) OneTouch Verio test strips Strip See Rx Instructions .ROUTE .MEDSUPPLY Qty: 300 3RF Rx Instructions: test 3 times daily insulin glargine U-300 conc [Toujeo SoloStar U-300 Insulin] 300 unit/mL (1.5 mL) insulin pen 40 unit SUBCUT QAM 90 Days Qty: 13.5 3RF (DME) pen needle, diabetic [BD Ultra-Fine Cris Pen Needle] 32 gauge x 5/32" needle See Rx Instructions .ROUTE .MEDSUPPLY Qty: 400 3RF Rx Instructions: use 4 per day with insulin injections methenamine hippurate 1 gram tablet 1 g PO BID Qty: 30 0RF methenamine hippurate 1 gram tablet 1 g PO BID Qty: 180 3RF diphenoxylate-atropine [Lomotil] 2.5-0.025 mg tablet 1 tab PO BID PRN (Reason: diarrhea) Qty: 180 1RF insulin lispro [Humalog KwikPen Insulin] 100 unit/mL insulin pen 5 unit subcut TID 90 Days Qty: 15 3RF duloxetine 60 mg capsule,delayed release(DR/EC) 60 mg PO QAM 90 Days Qty: 90 3RF Gemtesa 75 mg tablet 75 mg PO DAILY tramadol 50 mg tablet 50 mg PO BID PRN (Reason: pain) Qty: 30 0RF Rx Instructions: Ongoing therapy Supervising Dr. Pro BENOIT [id number] lidocaine 5 % adhesive patch,medicated 1 patch topical DAILY PRN (Reason: pain (scale score 7-10)) Qty: 30 5RF Rx Instructions: leave on most painful area for up to 12 hrs cholecalciferol (vitamin D3) [Vitamin D3] 50 mcg (2,000 unit) Capsule 2,000 unit PO QAM Women's One Daily 18 mg iron-400 mcg-500 mg Ca Tablet 1 tab PO QAM Probiotic 5 billion cell Capsule, Sprinkle 1 cap PO DAILY PreserVision AREDS-2 250-90-40-1 mg Capsule 1 tab PO BID hydroxyzine HCl 10 mg tablet 10 mg PO Q6H PRN (Reason: dizziness or vertigo) Qty: 20 0RF cranberry 400 mg Capsule 400 mg PO DAILY Rx Instructions: administer with a meal atorvastatin [Lipitor] 40 mg tablet 40 mg PO HS Qty: 90 3RF metoprolol succinate [Toprol XL] 50 mg tablet extended release 24 hr 50 mg PO QAM Qty: 90 3RF spironolactone [Aldactone] 25 mg tablet 12.5 mg PO DAILY Qty: 45 3RF lisinopril 40 mg tablet 40 mg PO QAM Qty: 30 3RF doxazosin 1 mg tablet 1 mg PO DAILY Qty: 30 2RF clopidogrel [Plavix] 75 mg tablet 75 mg PO DAILY Qty: 30 3RF Referrals Referrals: Markus Castillo MD [Primary Care Provider] -
[2023-07-22] MEDS: fentaNYL citrate PF 100 MCG/2 ML VIAL IV STA (11:21)
[2023-07-22 11:37] LABS: iSTAT Creatinine 0.8 mg/dl (0.6-1.3); iSTAT Hemoglobin 14.6 g/dl (12.0-16.0); iSTAT Ionized Calcium 1.23 mmol/l (1.12-1.32); iSTAT Potassium 4.1 mmol/L (3.3-5.0)
[2023-07-22 11:38] LABS: Basophils # (auto) 0.04 K/uL (0.00-0.20); Basophils % (auto) 0.4 %; Eosinophils # (auto) 0.13 K/uL (0.00-0.50); Eosinophils % (auto) 1.5 %; Hematocrit (blood only) 42.5 % (37.0-47.0); Hemoglobin 14.1 g/dl (12.0-16.0); Immature Granulocytes # (auto) 0.04 K/uL (0.01-0.20); Immature Granulocytes % (auto) 0.4 %; Lymphocytes # (auto) 1.84 K/uL (1.20-3.40); Lymphocytes % (auto) 20.6 %; Mean Corpuscular Hemoglobin 30.1 pg (25.0-34.0); Mean Corpuscular Hgb Conc 33.2 g/dL (32.0-36.0); Mean Corpuscular Volume 90.6 fL (80.0-100.0); Mean Platelet Volume 10.1 fL (9.4-12.4); Monocytes % (auto) 7.8 %; Neutrophils # (auto) 6.18 K/uL (1.40-6.50); Neutrophils % (auto) 69.3 %; Platelet Count 218 K/uL (130-400); Red Blood Count 4.69 M/uL (4.20-5.40); White Blood Count 8.93 K/ul (4.8-10.8)
[2023-07-22] MEDS: OPTIRAY 320 100ml IV ONE (11:41)
[2023-07-22 11:56] LABS: Albumin Globulin Ratio 1.4 (0.9-2); Albumin Level 4.7 gm/dl (3.4-5.0); BUN Creatinine Ratio 27.4 (10-20); Bilirubin,Total 0.7 mg/dl (0.2-1.0); Calcium 10.3 mg/dl (8.6-10.3); Creatinine Clr Calc Pharmacy 44.4 ml/min; Est GFR (Non-African American) 64.7 ml/min; Globulin 3.4 gm/dl (2.5-4.0); Potassium 4.1 mmol/L (3.5-5.1); Total Protein 8.1 gm/dl (6.0-8.3)
[2023-07-22 12:02] LABS: Troponin I High Sensitivity 11.2 pg/ml (0-14)
[2023-07-22 12:06] LABS: Prothrombin Time 10.9 Seconds (9.0-12.0)
--- NOTE | 2023-07-22 12:15 | CT Scan Report ---
CT head/brain wo con CLINICAL HISTORY: 82 years-old Female with Trauma. Acute head trauma TECHNIQUE: Multiple axial CT images of the head were obtained without contrast. A dose lowering tech nique was utilized adhering to the principles of ALARA. COMPARISON: 04/25/2023 FINDINGS: No acute intracranial hemorrhage, midline shift, intracranial mass, hydrocephalus, territorial ischem ia or abnormal extra-axial collection. Involutional changes with chronic microvascular ischemic disea se. Chronic basal ganglia lacunar infarcts. The calvarium is intact. Left frontal scalp subcutaneous hematoma measures 10 x 3 cm. The paranasal s inuses, mastoid air cells, and middle ear cavities are clear. IMPRESSION: 1. No acute intracranial abnormality or calvarial fracture. 2. Large subcutaneous left superior frontal scalp hematoma/contusion. ACT 112: Negative or not required by law. The above report was generated using voice recognition software. It may contain grammatical, syntax o r spelling errors. Electronically signed by: Jarad Valdez M.D. 07/22/2023 12:14 PM
--- NOTE | 2023-07-22 12:19 | CT Scan Report ---
CT cervical spine wo con CT DOSE: 3094.63 mGy.cm CLINICAL HISTORY: 82 years-old Female with Trauma. Acute neck pain status post trauma COMPARISON: 02/06/2023 TECHNIQUE: Multiple axial CT images of the cervical spine were obtained without contrast. A dose low ering technique was utilized adhering to the principles of ALARA. FINDINGS: Demineralized appearance of the bones. There is no evidence of fracture or subluxation invo lving the cervical spine. Vertebral body height is maintained. There is minimal anterolisthesis at C6 -C7. Alignment is otherwise preserved. There is straightening of the cervical lordosis. Anterior oste ophytes are seen throughout. The odontoid process and lateral masses are intact. The atlantoaxial art iculation is preserved noting advanced productive degenerative change. The spinous processes appear i ntact. There is mild/moderate multilevel cervical spondylosis. Uncovertebral and facet arthropathy co ntribute to neural foraminal narrowing at several levels. There is severe disc space narrowing at C5- C6 with associated endplate sclerosis. Only mild narrowing is seen at the remaining cervical levels. Posterior disc osteophyte complexes at C4-C5 and, C5-C6, and C6-C7 may contribute to acquired comprom ising the central canal. The cervical soft tissues appear unremarkable. The visualized lung apices appear clear. IMPRESSION: No acute cervical spine fracture or subluxation. ACT 112: Negative or not required by law. The above report was generated using voice recognition software. It may contain grammatical, syntax o r spelling errors. Electronically signed by: Jarad Valdez M.D. 07/22/2023 12:17 PM
[2023-07-22 12:21] LABS: Appearance Urine Clear (Clear); Bilirubin Urine Negative (Negative); Blood Urine Negative (Negative); Color Urine Yellow; Glucose Urine UA Trace (Negative); Ketones Urine Negative (Negative); Leukocyte Esterase Urine Negative (Negative); Nitrite Urine Negative (Negative); Protein Urine Negative (Negative); Specific Gravity Urine 1.013 (1.000-1.030); Urobilinogen Urine Negative (Negative); pH Urine 6.5 (4.5-7.5)
--- NOTE | 2023-07-22 12:36 | CT Scan Report ---
CHEST CT WITH CONTRAST; CT ABDOMEN AND PELVIS WITH IV CONTRAST ONLY HISTORY: Chest and abdominal trauma status post fall Trauma TECHNIQUE: Multiaxial CT images of the chest were performed following the IV administration of 91 cc of Optiray. A dose lowering technique was utilized adhering to the principles of ALARA. COMPARISON: Chest CT April 06, 2022, CT abdomen and pelvis 10/27/2019. FINDINGS: CT CHEST: 2.1 cm hypodense thyroid nodule. 1.3 x 1.8 cm precarinal lymph node is stable and likely benign. Mode rate cardiomegaly. Extensive coronary artery calcifications. No pericardial effusion. No thoracic aor tic aneurysm or dissection. Unremarkable pulmonary artery. No pneumothorax, pleural effusion, airspac e consolidation or pulmonary edema. Subpleural reticulation/fibrosis redemonstrated with low suspicio n for subpleural solid nodules measuring up to 4 mm. There is a mild traction bronchiectasis with mil d subpleural honeycombing. There is an acute comminuted and mildly displaced fracture involving the g reater and lesser tuberosities and surgical neck of the left humerus with approximately 1 cm lateral displacement. No dislocation. No additional acute fracture identified. CT ABDOMEN/PELVIS: No free air. Unremarkable spleen, moderately atrophic pancreas and liver. Mild intrahepatic and extra hepatic biliary ductal dilation, likely secondary to cholecystectomy. Patency of the hepatic and port al veins. Bilateral adrenal gland nodules measure 1.7 cm on the left and 0.9 cm on the right. These a re stable and likely benign. Cortical thinning of the kidneys bilaterally with a few cysts. Bilateral extrarenal pelves.. Bladder distention with mild wall thickening. Nonspecific thickening of the postmenopausal endometrium, 8 mm. 11 mm hypodense right uterine fundal lesion, possibly a fibroid. Atherosclerosis of the aorta. No ly mphadenopathy. Small hiatal hernia. Duodenal diverticula. Colonic diverticulosis. No free fluid. Mild to moderate colonic fecal retention. Normal appendix. Diastases recti. No acute fracture identified. L5 chronic wedge deformity. IMPRESSION: 1. Acute, comminuted and mildly displaced left proximal humeral fracture. 2. No pneumothorax. 3. Chronic interstitial lung disease. 4. No acute posttraumatic intra-abdominal or intrapelvic abnormality. 5. Mild nonspecific thickening of the postmenopausal endometrium. 6. Additional incidental findings as above. ACT 112: Negative or not required by law. Electronically signed by: Jarad Valdez M.D. 07/22/2023 12:34 PM
--- NOTE | 2023-07-22 12:37 | XRay Report ---
XR shoulder LT min 2V routine HISTORY: 82 years-old Female shoulder pain s/p fall acute left shoulder pain status post fall COMPARISON: Chest CT of same day TECHNIQUE: 2 views of the left shoulder FINDINGS: Mild AC joint with moderate glenohumeral osteoarthritis. No dislocation. There is an acute comminuted proximal left humeral fracture with involvement of the greater and lesser tuberosities and surgical neck. 1 cm lateral displacement of the greater tuberosity fracture. IMPRESSION: Acute comminuted mildly displaced proximal left humeral fracture. ACT 112: Negative or not required by law. The above report was generated using voice recognition software. It may contain grammatical, syntax o r spelling errors. Electronically signed by: Jarad Valdez M.D. 07/22/2023 12:36 PM
[2023-07-22] MEDS: HYDROmorphone INJ 0.5 MG/0.5 ML SYR IV STA (13:06)
--- NOTE | 2023-07-22 13:41 | Electrocardiogram Report ---
Test Reason : Blood Pressure : / mmHG Vent. Rate : 070 BPM Atrial Rate : 070 BPM P-R Int : 224 ms QRS Dur : 088 ms QT Int : 412 ms P-R-T Axes : 064 004 080 degrees QTc Int : 444 ms Sinus rhythm with 1st degree A-V block Minimal voltage criteria for LVH, may be normal variant ( [place] product ) Borderline ECG When compared with ECG of 25-APR-2023 16:24, No significant change was found Confirmed by Suhas Berg ([id number]) on 07/22/2023 1:41:06 PM Referred By: Confirmed By:Suhas Berg
--- NOTE | 2023-07-22 14:31 | History & Physical Report ---
Date of Service July 22, 2023 Assessment & Plan (1) Ambulatory dysfunction: Plan: -Admit to med/surge -Currently stable and non-toxic appearing -Presented to the ED via EMS after sustaining a ground level fall while trying to turn around in her kitchen -Patient has a hx of baseline ambulatory dysfunction and uses a walker -No prodromal symptoms -Landed on left side, did hit head but denies LOC -Sustained a left humeral fracture, no other acute trauma on imaging obtained in the ED -Patient was ordered a LUE immobilizer, will have nursing staff place now -Will need rehab/place on discharge, PT/OT consults -Pain control with scheduled tylenol and prn morphine -Prn narcan ordered -Orthopedics consult placed -BL ALISON's for DVT PPX overnight, can start chemical DVT PPX if she is without signs of bleeding -HH/DMII diet -AM CBC, CMP, mag, PT/INR (2) Fall from standing: Plan: -Will obtain xrays of the BL knees and left foot due to pain in those areas as well -Rest of care see ambulatory dysfunction plan (3) Closed left humeral fracture: Plan: -See ambulatory dysfunction (4) CAD (coronary artery disease): Plan: -Continue plavix and statin (5) Interstitial lung disease: Plan: -Currently stable on RA and in no respiratory distress -Does have scattered expiratory wheezing on exam -Will start incentive spirometry/flutter therapy -QIDr prn DuoNebs, prn O2 to keep SpO2 between 89-92% (6) Diabetes mellitus type 2, uncontrolled: Plan: -Monitor BSG ACHS, goal is 110-160 -Normall takes 40 units lantus in the am >Will convert to 15 units BID for now -Start CF 50 and CR 15 ACHS for now -Adjust regimen as needed (7) Hypertension: Plan: -Stable -Will continue home lisinopril, spironolactone, metoprolol Plan The patient was discussed with Dr. Jaimes at the time of the admission History of Present Illness Chief Complaint: Ground level fall Primary Care Provider: Markus Castillo MD Sofia is an 83-year-old female with PMH of falls, T2DM, HLD, HTN, IBS, and CVA with right-sided LE residual deficits who presented to the [facility] ED on 07/22/23 via EMS after sustaining a ground level fall at home this afternoon. She was reportedly cooking in the kitchen, while trying to turn around she lost her balance and fell to the floor. On arrival to the ED she was noted to be hypertensive at 219/214 but otherwise stable. Labs including CBC, CMP, lactate, high sen trop, and UA were unremarkable. CT of the head/brain wo con was read as "1. No acute intracranial abnormality or calvarial fracture. 2. Large subcutaneous left superior frontal scalp hematoma/contusion.". CT of the chest/abd/pelvis w/IV con was read as "1. Acute, comminuted and mildly displaced left proximal humeral fracture. 2. No pneumothorax. 3. Chronic interstitial lung disease.4. No acute posttraumatic intra-abdominal or intrapelvic abnormality. 5. Mild nonspecific thickening of the postmenopausal endometrium. 6. Additional incidental findings as above.". CT of the cervical spine wo con was read as negative for acute findings. And dedicated xray of the left shoulder was read as "Acute comminuted mildly displaced proximal left humeral fracture.". The patient was given 50 mcg of IV fentanyl and 0.5 mg IV Dilaudid in the ED. Unfortunately she was already having ambulatory dysfunction with the use of a walker prior to her fall. She will required rehab/placement on discharge. At the time of the exam the patient was sitting in bed in mild distress due to LUE pain. States she was in the kitchen making breakfast for her grandson who was visiting when she tried to turn and lost her balance. She fell to the ground, landing on her left side. She denies prodromal symptoms such as lightheadedness, dizziness, chest pain, increased SOB from baseline, or palpitations. She did hit the left side of her head but did not lose consciousness. Her family called EMS shortly after the fall. She did take all her am medications prior to the fall. She confirms that she has ambulatory dysfunction at baseline, even with the use of a walker and has 3 different sets of steps in her home. We discussed code status, she clearly stated that she wishes to be a DNR/DNI and would not want resuscitation if she were to go into cardiac arrest and/or respiratory failure. She would want her sons to make medical decisions for her if she can't make them herself. Please refer to Dr. Jaimes's attestation for any changes to the treatment plan Allergies Allergy/AdvReac Type Severity Reaction Status Date / Time dapsone Allergy Intermediate Rash Verified 06/06/23 13:57 Sulfa (Sulfonamide Allergy Mild Unknown Verified 06/06/23 13:57 Antibiotics) latex Allergy Unknown Unknown Verified 06/06/23 13:57 ciprofloxacin AdvReac Intermediate "i blew up Verified 06/06/23 13:57 like a balloon" per pt adhesive AdvReac Unknown Unknown Verified 06/06/23 13:57 metronidazole [From Flagyl] AdvReac Unknown Unknown Verified 06/06/23 13:57 red dye AdvReac Unknown Unknown Verified 06/06/23 13:57 Home Medications Medication Instructions Recorded Confirmed Type cholecalciferol (vitamin D3) 50 2,000 unit PO QAM 11/11/19 07/22/23 History mcg (2,000 unit) capsule (Vitamin D3) multivit-iron 18 mg-folic acid 400 1 tab PO QAM 11/11/19 07/22/23 History mcg-calcium 500 mg-minerals tablet (Women's One Daily) OneTouch Verio Reflect Meter #1 ea 08/05/21 07/22/23 Rx (blood-glucose meter) triamcinolone acetonide 55 mcg 1 spray intranasal DAILY PRN 08/26/21 07/22/23 Rx nasal spray aerosol (Nasacort) Congestion #16.9 mL OneTouch Delica Plus Lancet 33 #400 ea 07/28/22 07/22/23 Rx gauge (lancets) Lactobacil.acidophilus-Bifido.animalis 1 cap PO DAILY 08/17/22 07/22/23 History 5 billion cell sprinkle capsule (Probiotic) vit C 250 mg-vit E 90 mg-zinc 40 1 tab PO BID 08/17/22 07/22/23 History mg-copper 1 or-ezmefq-eyngwl capsule (PreserVision AREDS-2) insulin lispro 100 unit/mL 5 unit (0.05 mL) subcut TID 90 08/29/22 07/22/23 Rx subcutaneous pen (Humalog KwikPen days #15 mL (U-100) Insulin) OneTouch Verio test strips (blood #300 ea 09/07/22 07/22/23 Rx sugar diagnostic) cranberry 400 mg capsule 400 mg PO DAILY 02/06/23 07/22/23 History duloxetine 60 mg capsule,delayed 60 mg PO QAM 90 days #90 caps 04/18/23 07/22/23 Rx release atorvastatin 40 mg tablet (Lipitor) 40 mg PO HS #90 tabs 04/25/23 07/22/23 Rx clopidogrel 75 mg tablet (Plavix) 75 mg PO DAILY #30 tabs 04/25/23 07/22/23 Rx doxazosin 1 mg tablet 1 mg PO DAILY #30 tabs 04/25/23 07/22/23 Rx lisinopril 40 mg tablet 40 mg PO QAM #30 tabs 04/25/23 07/22/23 Rx metoprolol succinate 50 mg 50 mg PO QAM #90 tabs 04/25/23 07/22/23 Rx tablet,extended release 24 hr (Toprol XL) spironolactone 25 mg tablet 12.5 mg (1/2 x 25 mg) PO DAILY #45 04/25/23 07/22/23 Rx (Aldactone) tabs insulin glargine U-300 conc 300 40 unit (0.1333 mL) subcut QAM 40 04/26/23 07/22/23 Rx unit/mL (1.5 mL) subcutaneous pen units 90 days #13.5 mL (Toujeo SoloStar U-300 Insulin) lidocaine 5 % topical patch 1 patch topical DAILY PRN pain 05/03/23 07/22/23 Rx (scale score 7-10) #30 ea pen needle, diabetic 32 gauge x #400 ea 05/16/23 07/22/23 Rx 5/32" (BD Ultra-Fine Cris Pen Needle) tramadol 50 mg tablet 50 mg PO BID PRN pain #30 tabs 05/17/23 07/22/23 Rx vibegron 75 mg tablet (Gemtesa) 75 mg PO DAILY 05/17/23 07/22/23 History methenamine hippurate 1 gram tablet 1 g PO BID #30 tabs 07/06/23 07/22/23 Rx diphenoxylate-atropine 2.5 1 tab PO BID PRN diarrhea #180 tabs 07/17/23 07/22/23 Rx mg-0.025 mg tablet (Lomotil) Past Med/Surg History Problem List Ambulatory dysfunction (Acute) Closed left humeral fracture (Acute 07/22/23) from a fall Fall from standing (Acute) Balance problem Low back pain Stroke Lupus Overactive bladder Hypomagnesemia (Acute) Fall (Acute) Lumbar contusion (Acute) Left leg weakness (Acute) Nonproliferative diabetic retinopathy CAD (coronary artery disease) Diabetic peripheral neuropathy Abnormal thyroid blood test Interstitial lung disease Localized swelling of both lower legs Hypoglycemia Stented coronary artery Loss of protective sensation of skin of foot H/O: stroke with residual effects Type 2 diabetes mellitus with insulin therapy Albuminuria Recurrent UTI (urinary tract infection) Urine incontinence (Chronic) Diabetes mellitus type 2, uncontrolled (Chronic) Age-related cognitive decline (Chronic) Diabetic peripheral neuropathy associated with type 2 diabetes mellitus (Acute) Gait disturbance (Acute) Hyperlipidemia (Acute) Hypertension (Chronic) IBS (irritable bowel syndrome) (Acute) Nephrolithiasis (Acute) Neuropathic pain of both feet (Acute) Vitamin D deficiency disease (Acute) Medical History Hypertension Contact dermatitis Chronic cough Rash Herpes zoster, ocular Contusion of leg, left Gross hematuria Physical deconditioning Expressive aphasia UTI (urinary tract infection) Chronic diarrhea Spinal stenosis of lumbar region Cerebrovascular disease Family history of dementia Neurogenic claudication due to lumbar spinal stenosis Arm DVT (deep venous thromboembolism), acute Mitral regurgitation Recurrent UTI Hx of renal calculi C. difficile colitis Surgical History History of lithotripsy S/P cardiac catheterization Hx of cholecystectomy Family History Mother Alzheimer disease Hypertension Brother Diabetes Father Hypertension Sister Lung cancer Other Family history non-contributory Stroke Social History Smoking Status: Never smoker Second Hand Exposure: No; Do You Dip or Chew Tobacco: No; Hx Alcohol Use: No Hx Substance Use: No Preferred Language: Indonesian Communication Ability: Effective Visual Impairment: No Limitations Hearing Ability: Normal Assistant Art Director Required: No Beliefs That Will Affect Care: None marital status: / Current Living Situation: Alone current occupational status: retired Feels Safe at Home: Yes Childhood Exposure to Second-Hand Smoke: No Dental Care, Regularly: No Physical Activity Frequency: Does not Exercise Seatbelt Use: always Sunscreen Use: No Assistive Devices: Glasses and Walker Physical Exam Physical Exam: Physical Exam: General: In mild distress due to pain, stated age, chronically ill appearing but non-toxic HEENT: Normocephalic, patient with bruising noted on the left scalp, otherwise not acute trauma on the head or neck, no scleral icterus, pupils around round, symmetrical, and reactive to light, dry, mucus membranes, trachea midline, no thyromegaly Chest/Pulm: No respiratory distress, symmetrical chest expansion, scattered expiratory expiratory wheezing Cardiac: RRR, no murmurs noted Abdomen: Negative for ascites and bruising, normoactive bowel sounds, soft, non-tender to palpation throughout Musculoskeletal: Head and neck exam as listed above, patient with LUE currently resting on abdomen, paint with palpation of the left shoulder and humerus, intact motor function of the BL wrists and hands, no pain on palpation of the BL hips, BL knees are tender to palpation and have abrasions overlying the patellae, intact mortor function of the BL ankles, pain in the left great toe with non-bleeding skin tear on the anterior aspect Extremities: Radial, dorsalis pedis, and posterior tibial pulses are intact and symmetrical, no edema noted in the BL LE's Skin: Warm, dry, no rashes , lesions, or scars noted Neuro: Alert and oriented to person, place, month, year, and president, no f ocal defects, no tremors noted Psych: Polite and cooperative during the exam Results & Data Results & Data Vital Signs (Past 12 Hours) Vital Signs Temp Pulse Pulse Resp BP BP Pulse Ox 07/22/23 14:04 74 20 135/70 92 07/22/23 12:08 72 24 223/113 H 95 07/22/23 11:21 97 07/22/23 11:13 69 07/22/23 10:49 36.5 C 70 16 219/114 H 97 O2 Del Method 07/22/23 14:04 Room Air 07/22/23 12:08 Room Air 07/22/23 11:21 Room Air 07/22/23 11:13 07/22/23 10:49 Room Air Laboratory Results Abnormal lab results 07/22/23 07/22/23 07/22/23 Range/Units 11:18 11:24 12:05 [place] # (Auto) 0.70 H (0.11-0.59) K/uL POC BUN 26 H (7-18) mg/dl BUN/Creatinine Ratio 27.4 H (10-20) Urine Glucose (UA) Trace H (Negative) Diagnostic Findings Shoulder X-Ray 07/22/23 11:05 XR shoulder LT min 2V routine HISTORY: 82 years-old Female shoulder pain s/p fall acute left shoulder pain status post fall COMPARISON: Chest CT of same day TECHNIQUE: 2 views of the left shoulder FINDINGS: Mild AC joint with moderate glenohumeral osteoarthritis. No dislocation. There is an acute comminuted proximal left humeral fracture with involvement of the greater and lesser tuberosities and surgical neck. 1 cm lateral displacement of the greater tuberosity fracture. IMPRESSION: Acute comminuted mildly displaced proximal left humeral fracture. ACT 112: Negative or not required by law. The above report was generated using voice recognition software. It may contain grammatical, syntax or spelling errors. Electronically signed by: Jarad Valdez M.D. 07/22/2023 12:36 PM Abdomen/Pelvis CT 07/22/23 11:[address] WITH CONTRAST; CT ABDOMEN AND PELVIS WITH IV CONTRAST ONLY HISTORY: Chest and abdominal trauma status post fall Trauma TECHNIQUE: Multiaxial CT images of the chest were performed following the IV administration of 91 cc of Optiray. A dose lowering technique was utilized adhering to the principles of ALARA. COMPARISON: Chest CT April 06, 2022, CT abdomen and pelvis 10/27/2019. FINDINGS: CT CHEST: 2.1 cm hypodense thyroid nodule. 1.3 x 1.8 cm precarinal lymph node is stable and likely benign. Moderate cardiomegaly. Extensive coronary artery calcifications. No pericardial effusion. No thoracic aortic aneurysm or dissection. Unremarkable pulmonary artery. No pneumothorax, pleural effusion, airspace consolidation or pulmonary edema. Subpleural reticulation/fibrosis redemonstrated with low suspicion for subpleural solid nodules measuring up to 4 mm. There is a mild traction bronchiectasis with mild subpleural honeycombing. There is an acute comminuted and mildly displaced fracture involving the greater and lesser tuberosities and surgical neck of the left humerus with approximately 1 cm lateral displacement. No dislocation. No additional acute fracture identified. CT ABDOMEN/PELVIS: No free air. Unremarkable spleen, moderately atrophic pancreas and liver. Mild intrahepatic and extrahepatic biliary ductal dilation, likely secondary to cholecystectomy. Patency of the hepatic and portal veins. Bilateral adrenal gland nodules measure 1.7 cm on the left and 0.9 cm on the right. These are stable and likely benign. Cortical thinning of the kidneys bilaterally with a few cysts. Bilateral extrarenal pelves.. Bladder distention with mild wall thickening. Nonspecific thickening of the postmenopausal endometrium, 8 mm. 11 mm hypodense right uterine fundal lesion, possibly a fibroid. Atherosclerosis of the aorta. No lymphadenopathy. Small hiatal hernia. Duodenal diverticula. Colonic diverticulosis. No free fluid. Mild to moderate colonic fecal retention. Normal appendix. Diastases recti. No acute fracture identified. L5 chronic wedge deformity. IMPRESSION: 1. Acute, comminuted and mildly displaced left proximal humeral fracture. 2. No pneumothorax. 3. Chronic interstitial lung disease. 4. No acute posttraumatic intra-abdominal or intrapelvic abnormality. 5. Mild nonspecific thickening of the postmenopausal endometrium. 6. Additional incidental findings as above. ACT 112: Negative or not required by law. Electronically signed by: Jarad Valdez M.D. 07/22/2023 12:[address] 07/22/23 11:06 CT cervical spine wo con CT DOSE: 3094.63 mGy.cm CLINICAL HISTORY: 82 years-old Female with Trauma. Acute neck pain status post trauma COMPARISON: 02/06/2023 TECHNIQUE: Multiple axial CT images of the cervical spine were obtained without contrast. A dose lowering technique was utilized adhering to the principles of ALARA. FINDINGS: Demineralized appearance of the bones. There is no evidence of fracture or subluxation involving the cervical spine. Vertebral body height is maintained. There is minimal anterolisthesis at C6-C7. Alignment is otherwise preserved. There is straightening of the cervical lordosis. Anterior osteophytes are seen throughout. The odontoid process and lateral masses are intact. The atlantoaxial articulation is preserved noting advanced productive degenerative change. The spinous processes appear intact. There is mild/moderate multilevel cervical spondylosis. Uncovertebral and facet arthropathy contribute to neural foraminal narrowing at several levels. There is severe disc space narrowing at C5-C6 with associated endplate sclerosis. Only mild narrowing is seen at the remaining cervical levels. Posterior disc osteophyte complexes at C4-C5 and, C5- C6, and C6-C7 may contribute to acquired compromising the central canal. The cervical soft tissues appear unremarkable. The visualized lung apices appear clear. IMPRESSION: No acute cervical spine fracture or subluxation. ACT 112: Negative or not required by law. The above report was generated using voice recognition software. It may contain grammatical, syntax or spelling errors. Electronically signed by: Jarad Valdez M.D. 07/22/2023 12:[address] 07/22/23 11:[address] WITH CONTRAST; CT ABDOMEN AND PELVIS WITH IV CONTRAST ONLY HISTORY: Chest and abdominal trauma status post fall Trauma TECHNIQUE: Multiaxial CT images of the chest were performed following the IV administration of 91 cc of Optiray. A dose lowering technique was utilized adhering to the principles of ALARA. COMPARISON: Chest CT April 06, 2022, CT abdomen and pelvis 10/27/2019. FINDINGS: CT CHEST: 2.1 cm hypodense thyroid nodule. 1.3 x 1.8 cm precarinal lymph node is stable and likely benign. Moderate cardiomegaly. Extensive coronary artery calcifications. No pericardial effusion. No thoracic aortic aneurysm or dissection. Unremarkable pulmonary artery. No pneumothorax, pleural effusion, airspace consolidation or pulmonary edema. Subpleural reticulation/fibrosis redemonstrated with low suspicion for subpleural solid nodules measuring up to 4 mm. There is a mild traction bronchiectasis with mild subpleural honeycombing. There is an acute comminuted and mildly displaced fracture involving the greater and lesser tuberosities and surgical neck of the left humerus with approximately 1 cm lateral displacement. No dislocation. No additional acute fracture identified. CT ABDOMEN/PELVIS: No free air. Unremarkable spleen, moderately atrophic pancreas and liver. Mild intrahepatic and extrahepatic biliary ductal dilation, likely secondary to cholecystectomy. Patency of the hepatic and portal veins. Bilateral adrenal gland nodules measure 1.7 cm on the left and 0.9 cm on the right. These are stable and likely benign. Cortical thinning of the kidneys bilaterally with a few cysts. Bilateral extrarenal pelves.. Bladder distention with mild wall thickening. Nonspecific thickening of the postmenopausal endometrium, 8 mm. 11 mm hypodense right uterine fundal lesion, possibly a fibroid. Atherosclerosis of the aorta. No lymphadenopathy. Small hiatal hernia. Duodenal diverticula. Colonic diverticulosis. No free fluid. Mild to moderate colonic fecal retention. Normal appendix. Diastases recti. No acute fracture identified. L5 chronic wedge deformity. IMPRESSION: 1. Acute, comminuted and mildly displaced left proximal humeral fracture. 2. No pneumothorax. 3. Chronic interstitial lung disease. 4. No acute posttraumatic intra-abdominal or intrapelvic abnormality. 5. Mild nonspecific thickening of the postmenopausal endometrium. 6. Additional incidental findings as above. ACT 112: Negative or not required by law. Electronically signed by: Jarad Valdez M.D. 07/22/2023 12:[address] 07/22/23 11:06 CT head/brain wo con CLINICAL HISTORY: 82 years-old Female with Trauma. Acute head trauma TECHNIQUE: Multiple axial CT images of the head were obtained without contrast. A dose lowering technique was utilized adhering to the principles of ALARA. COMPARISON: 04/25/2023 FINDINGS: No acute intracranial hemorrhage, midline shift, intracranial mass, hydrocephalus, territorial ischemia or abnormal extra-axial collection. Involutional changes with chronic microvascular ischemic disease. Chronic basal ganglia lacunar infarcts. The calvarium is intact. Left frontal scalp subcutaneous hematoma measures 10 x 3 cm. The paranasal sinuses, mastoid air cells, and middle ear cavities are clear. IMPRESSION: 1. No acute intracranial abnormality or calvarial fracture. 2. Large subcutaneous left superior frontal scalp hematoma/contusion. ACT 112: Negative or not required by law. The above report was generated using voice recognition software. It may contain grammatical, syntax or spelling errors. Electronically signed by: Jarad Valdez M.D. 07/22/2023 12:14 PM ECG Additional Comments: Sinus rhythm with 1st degree A-V block Minimal voltage criteria for LVH, may be normal variant ( Krishan product ) Borderline ECG When compared with ECG of 25-APR-2023 16:24, No significant change was found Confirmed by Suhas Berg ([id number]) on 07/22/2023 1:41:06 PM Code Status & VTE Plan Code Status DNR/DNI VTE Prophylaxis Plan VTE Prophylaxis will be ordered: Yes Supervising Physician Co-Signing Physician Notes I personally saw and examined the patient. I verified all akers points and agree with Rogelio Moss PA-C with the following exceptions and/or additions: 82 year old female presents to the ER following a fall with left arm pain. Longstanding history of falls, unbalanced and needing walker to get around. She has occasional vertigo. Does not think she lost consciousness. O/E A&Ox3, HS RRR, no murmurs, Chest CTAB, Abdo SNT, no sensory loss distal to fraction site with normal insurance marketing specialist strength A/P Fall - longstanding history of recurrent falls due to imbalance. PT/OT. May need placement as uses walker for mobility Left humeral fracture - sling, consult orthopedics but suspect treatment non- operative. PG Care Time/CCT Total # of Minutes Spent Total Time Spent with Patient: Total time spent is greater than 50% in coordination of care (as documented) at patient's floor/unit and/or counseling patient: [place] [address] INT INP/OBS CARE 2/55MIN Patient Type Established Medical Decision Making Moderate Complexity Diagnoses Ambulatory dysfunction R26.2 Fall from standing W19.XXXA Closed left humeral fracture S42.302A CAD (coronary artery disease) I25.10 Interstitial lung disease J84.9 Diabetes mellitus type 2, uncontrolled E11.65 Hypertension I10 Hypertension type: unspecified (7) Hypertension Hypertension type: unspecified Qualified Code(s): I10 - Essential (primary) hypertension
[2023-07-22] MEDS ORDERED: GLUCAGON FOR INJ 1 MG VIAL SQ PRN (14:32)
[2023-07-22] MEDS ORDERED: CARBOHYDRATES FOR HYPOGLYCEMIA PO PRN (14:32)
[2023-07-22] MEDS ORDERED: GLUCOSE 40% GEL 15 GM TUBE PO PRN (14:32)
[2023-07-22] MEDS ORDERED: GLUCOSE 10 TAB/TUBE PO PRN (14:32)
[2023-07-22] MEDS ORDERED: DEXTROSE 50% 50 ML SYRINGE IV PRN (14:32)
[2023-07-22] MEDS ORDERED: MoRPHine SULFATE 2 MG/ML CARP IV PRN (14:33)
[2023-07-22] MEDS ORDERED: ONDANSETRON INJ 2 MG/ML 2 ML VIAL IV PRN (15:08)
[2023-07-22] MEDS ORDERED: ALBUT/IPRATROP 3MG/0.5MG NEB 3 ML VIAL NEB PRN (15:09)
[2023-07-22] MEDS ORDERED: NALOXONE HCL 0.4 MG/1 ML VIAL/CARP IV PRN (15:11)
--- NOTE | 2023-07-22 15:22 | XRay Report ---
XR foot LT 2V HISTORY: 82 years-old Female fall, left foot pain acute left foot pain status post fall COMPARISON: Ankle radiograph 10/07/2017 TECHNIQUE: 2 views left foot FINDINGS: Limited exam secondary to positioning. Demineralized appearance of the bones with mild to moderate os teoarthritis. Prominent spurring of the calcaneus. No acute fracture or dislocation. IMPRESSION: No acute fracture or dislocation identified. ACT 112: Negative or not required by law. The above report was generated using voice recognition software. It may contain grammatical, syntax o r spelling errors. Electronically signed by: Jarad Valdez M.D. 07/22/2023 3:21 PM
--- NOTE | 2023-07-22 15:23 | XRay Report ---
XR knee LT 1 or 2V routine, XR knee RT 1 or 2V routine HISTORY: 82 years-old Female fall, BL knee pain acute bilateral knee pain status post fall COMPARISON: None TECHNIQUE: 2 views of the bilateral knees FINDINGS: LEFT: Chondrocalcinosis. Mild to moderate medial patellofemoral compartment osteoarthritis. Trace joint eff usion. No acute fracture or dislocation. RIGHT: Chondrocalcinosis. Mild lateral with mild to moderate medial and patellofemoral compartment osteoarth ritis. Arterial calcifications. No large joint effusion. IMPRESSION: No acute fracture or dislocation. ACT 112: Negative or not required by law. The above report was generated using voice recognition software. It may contain grammatical, syntax o r spelling errors. Electronically signed by: Jarad Valdez M.D. 07/22/2023 3:22 PM
[2023-07-22] MEDS: ACETAMINOPHEN 325 MG TAB PO SCH (17:06)
[2023-07-22] MEDS: LACTATED RINGER'S 500 ML IV ONE (17:06)
[2023-07-22] MEDS: INSULIN ASPART PER UNIT CHARGE SC SCH (17:10)
[2023-07-22] MEDS: METHENAMINE HIPPURATE 1 GM TAB PO SCH (20:54)
[2023-07-22] MEDS: ATORVASTATIN 40 MG TAB PO SCH (20:55)
[2023-07-22] MEDS ORDERED: LANTUS PER UNIT CHARGE SQ SCH (21:00)
[2023-07-23] MEDS: COUGH DROP (SUGAR FREE) LOZ 24 LOZ/1 BOX BUCCAL PRN (00:27)
--- NOTE | 2023-07-23 07:04 | Orthopedic Consultation ---
Date of Service July 23, 2023 Assessment & Plan (1) Closed left humeral fracture: 82-year-old [id number] female with a left and relatively nondisplaced proximal humerus fracture. This does not need surgical intervention. Unfortunately she lives by herself and uses a walker to get around. That can make things difficult here for the first 4 to 6 weeks. Plan: I had a long discussion with the patient this morning. Treatment is nonoperative. Sling for the first 2 weeks and then will start some gentle motion. I will help her do left sit and sleep with the head of the bed elevated. Sling at all times for the first 2 weeks. Can continue mobilization. I need to see her back 2 weeks out from injury date. Any orthopedic questions can direct me [phone]. History of Present Illness Reason for Consultation: . Left proximal humerus fracture. Requesting Physician: . Attending Physician: Jarret Negrete . Patient is an 82-year-old [id number] female who sustained a mechanical fall yesterday. She was throwing something away when she twisted lost her balance. She normally uses a walker to get around. She says she falls frequently. She fell on her left side. Acute onset of pain. Brought to emergency room where x-rays minimally displaced proximal humerus fracture. Upper also sick had a significant contusion to her head. She has been admitted by the medicine service. She lives by herself. No other injuries. Allergies Allergy/AdvReac Type Severity Reaction Status Date / Time dapsone Allergy Intermediate Rash Verified 06/06/23 13:57 Sulfa (Sulfonamide Allergy Mild Unknown Verified 06/06/23 13:57 Antibiotics) latex Allergy Unknown Unknown Verified 06/06/23 13:57 ciprofloxacin AdvReac Intermediate "i blew up Verified 06/06/23 13:57 like a balloon" per pt adhesive AdvReac Unknown Unknown Verified 06/06/23 13:57 metronidazole [From Flagyl] AdvReac Unknown Unknown Verified 06/06/23 13:57 red dye AdvReac Unknown Unknown Verified 06/06/23 13:57 Home Medications Medication Instructions Recorded Confirmed Type cholecalciferol (vitamin D3) 50 2,000 unit PO QAM 11/11/19 07/22/23 History mcg (2,000 unit) capsule (Vitamin D3) multivit-iron 18 mg-folic acid 400 1 tab PO QAM 11/11/19 07/22/23 History mcg-calcium 500 mg-minerals tablet (Women's One Daily) OneTouch Verio Reflect Meter #1 ea 08/05/21 07/22/23 Rx (blood-glucose meter) triamcinolone acetonide 55 mcg 1 spray intranasal DAILY PRN 08/26/21 07/22/23 Rx nasal spray aerosol (Nasacort) Congestion #16.9 mL OneTouch Delica Plus Lancet 33 #400 ea 07/28/22 07/22/23 Rx gauge (lancets) Lactobacil.acidophilus-Bifido.animalis 1 cap PO DAILY 08/17/22 07/22/23 History 5 billion cell sprinkle capsule (Probiotic) vit C 250 mg-vit E 90 mg-zinc 40 1 tab PO BID 08/17/22 07/22/23 History mg-copper 1 vl-lozevc-qktign capsule (PreserVision AREDS-2) insulin lispro 100 unit/mL 5 unit (0.05 mL) subcut TID 90 08/29/22 07/22/23 Rx subcutaneous pen (Humalog Kwik days #15 mL (U-100) Insulin) OneTouch Verio test strips (blood #300 ea 09/07/22 07/22/23 Rx sugar diagnostic) cranberry 400 mg capsule 400 mg PO DAILY 02/06/23 07/22/23 History duloxetine 60 mg capsule,delayed 60 mg PO QAM 90 days #90 caps 04/18/23 07/22/23 Rx release atorvastatin 40 mg tablet (Lipitor) 40 mg PO HS #90 tabs 04/25/23 07/22/23 Rx clopidogrel 75 mg tablet (Plavix) 75 mg PO DAILY #30 tabs 04/25/23 07/22/23 Rx doxazosin 1 mg tablet 1 mg PO DAILY #30 tabs 04/25/23 07/22/23 Rx lisinopril 40 mg tablet 40 mg PO QAM #30 tabs 04/25/23 07/22/23 Rx metoprolol succinate 50 mg 50 mg PO QAM #90 tabs 04/25/23 07/22/23 Rx tablet,extended release 24 hr (Toprol XL) spironolactone 25 mg tablet 12.5 mg (1/2 x 25 mg) PO DAILY #45 04/25/23 07/22/23 Rx (Aldactone) tabs insulin glargine U-300 conc 300 40 unit (0.1333 mL) subcut QAM 40 04/26/23 07/22/23 Rx unit/mL (1.5 mL) subcutaneous pen units 90 days #13.5 mL (Toujeo SoloStar U-300 Insulin) lidocaine 5 % topical patch 1 patch topical DAILY PRN pain 05/03/23 07/22/23 Rx (scale score 7-10) #30 ea pen needle, diabetic 32 gauge x #400 ea 05/16/23 07/22/23 Rx 32" (BD Ultra-Fine Cris Pen Needle) tramadol 50 mg tablet 50 mg PO BID PRN pain #30 tabs 05/17/23 07/22/23 Rx vibegron 75 mg tablet (Gemtesa) 75 mg PO DAILY 05/17/23 07/22/23 History methenamine hippurate 1 gram tablet 1 g PO BID #30 tabs 07/06/23 07/22/23 Rx diphenoxylate-atropine 2.5 1 tab PO BID PRN diarrhea #180 tabs 07/17/23 07/22/23 Rx mg-0.025 mg tablet (Lomotil) Past Med/Surg History Problem List Ambulatory dysfunction (Acute) Closed left humeral fracture (Acute 07/22/23) from a fall Fall from standing (Acute) Balance problem Low back pain Stroke Lupus Overactive bladder Hypomagnesemia (Acute) Fall (Acute) Lumbar contusion (Acute) Left leg weakness (Acute) Nonproliferative diabetic retinopathy CAD (coronary artery disease) Diabetic peripheral neuropathy Abnormal thyroid blood test Interstitial lung disease Localized swelling of both lower legs Hypoglycemia Stented coronary artery Loss of protective sensation of skin of foot H/O: stroke with residual effects Type 2 diabetes mellitus with insulin therapy Albuminuria Recurrent UTI (urinary tract infection) Urine incontinence (Chronic) Diabetes mellitus type 2, uncontrolled (Chronic) Age-related cognitive decline (Chronic) Diabetic peripheral neuropathy associated with type 2 diabetes mellitus (Acute) Gait disturbance (Acute) Hyperlipidemia (Acute) Hypertension (Chronic) IBS (irritable bowel syndrome) (Acute) Nephrolithiasis (Acute) Neuropathic pain of both feet (Acute) Vitamin D deficiency disease (Acute) Medical History Hypertension Contact dermatitis Chronic cough Rash Herpes zoster, ocular Contusion of leg, left Gross hematuria Physical deconditioning Expressive aphasia UTI (urinary tract infection) Chronic diarrhea Spinal stenosis of lumbar region Cerebrovascular disease Family history of dementia Neurogenic claudication due to lumbar spinal stenosis Arm DVT (deep venous thromboembolism), acute Mitral regurgitation Recurrent UTI Hx of renal calculi C. difficile colitis Surgical History History of lithotripsy S/P cardiac catheterization Hx of cholecystectomy Family History Mother Alzheimer disease Hypertension Brother Diabetes Father Hypertension Sister Lung cancer Other Family history non-contributory Stroke Social History Smoking Status: Never smoker Second Hand Exposure: No; Do You Dip or Chew Tobacco: No; Tobacco Cessation Education Requested by Patient: No Hx Alcohol Use: No Hx Substance Use: No Preferred Language: Cameroonian Communication Ability: Effective Visual Impairment: No Limitations Hearing Ability: Normal Law Office Receptionist Required: No Beliefs That Will Affect Care: None marital status: / Current Living Situation: Alone current occupational status: retired Other Information That Helps Us Care for You: No Feels Safe at Home: Yes Safety Concerns: Feels Safe At This Time Childhood Exposure to Second-Hand Smoke: No Dental Care, Regularly: No Physical Activity Frequency: Does not Exercise Seatbelt Use: always Sunscreen Use: No Assistive Devices: Glasses and Walker Review of Systems All systems reviewed & are unremarkable except as noted in HPI & below. Physical Exam . Physical examination of the left shoulder and arm reveals her to be in a sling. Looks to be fitting well. She looks reasonably comfortable sitting up in bed. Domingo some mild diffuse swelling of the left shoulder. There is no visible deformity. She can flex extend her fingers wrist and elbow appropriately. She is neurologically intact. Results & Data Results & Data Laboratory Results . Diagnostic Findings . X-rays of the shoulder revealed minimally displaced three-part proximal humerus fracture. The shoulder is located. Fairly minimally displaced. PG Care Time/CCT Total # of Minutes Spent Total Time Spent with Patient: Total time spent is greater than 50% in coordination of care (as documented) at patient's floor/unit and/or counseling patient: Coding Level of Care Code 07002 IN/OBS CONSULT LVL 4,60M Diagnoses Closed left humeral fracture S42.302A
[2023-07-23] MEDS: DULoxetine HCL 60 MG CAP PO SCH (08:16)
[2023-07-23] MEDS: METOPROLOL SUCC 50MG EXT REL TAB PO SCH (08:16)
[2023-07-23] MEDS: CLOPIDOGREL BISULFATE 75 MG TAB PO SCH (08:17)
[2023-07-23] MEDS: SPIRONOLACTONE 12.5 MG TAB PO SCH (08:17)
[2023-07-23] MEDS: lisinopril 40 MG TAB PO SCH (08:17)
[2023-07-23] MEDS: DOXAZOSIN MESYLATE 1 MG TAB PO SCH (08:17)
[2023-07-23] MEDS: VIBEGRON 75 MG TAB PO SCH (08:17)
[2023-07-23] MEDS: LANTUS PER UNIT CHARGE SQ SCH (08:21)
[2023-07-23] MEDS: oxyCODONE HCL IR 5 MG TAB (IMMEDIATE RELEASE) PO PRN (09:19)
[2023-07-23 11:00] LABS: Basophils # (auto) 0.03 K/uL (0.00-0.20); Basophils % (auto) 0.3 %; Eosinophils # (auto) 0.19 K/uL (0.00-0.50); Eosinophils % (auto) 1.9 %; Hematocrit (blood only) 34.8 % (37.0-47.0); Hemoglobin 11.6 g/dl (12.0-16.0); Immature Granulocytes # (auto) 0.03 K/uL (0.01-0.20); Immature Granulocytes % (auto) 0.3 %; Lymphocytes # (auto) 1.77 K/uL (1.20-3.40); Lymphocytes % (auto) 17.4 %; Mean Corpuscular Hemoglobin 30.2 pg (25.0-34.0); Mean Corpuscular Hgb Conc 33.3 g/dL (32.0-36.0); Mean Corpuscular Volume 90.6 fL (80.0-100.0); Mean Platelet Volume 10.1 fL (9.4-12.4); Monocytes % (auto) 11.8 %; Neutrophils # (auto) 6.96 K/uL (1.40-6.50); Neutrophils % (auto) 68.3 %; Platelet Count 202 K/uL (130-400); RDW Coefficient of Variation 13.2 % (11.5-14.5); RDW Standard Deviation 43.4 fL (36.4-46.3); Red Blood Count 3.84 M/uL (4.20-5.40); White Blood Count 10.18 K/ul (4.8-10.8)
[2023-07-23 11:20] LABS: BUN Creatinine Ratio 27.3 (10-20); Calcium 9.4 mg/dl (8.6-10.3); Creatinine Clr Calc Pharmacy 36.3 ml/min; Est GFR (African American) 61.5 ml/min; Est GFR (Non-African American) 53.1 ml/min; Magnesium 1.7 mg/dl (1.7-2.4); Potassium 4.1 mmol/L (3.5-5.1)
[2023-07-23 11:30] LABS: Estimated Average Glucose 171 mg/dl; Hemoglobin A1C 7.6 % (4.5-5.6)
--- NOTE | 2023-07-23 13:34 | Hospitalist Progress Note ---
Date of Service July 23, 2023 Assessment & Plan (1) Ambulatory dysfunction: Plan: -Admit to med/surge -Currently stable and non-toxic appearing -Presented to the ED via EMS after sustaining a ground level fall while trying to turn around in her kitchen -Patient has a hx of baseline ambulatory dysfunction and uses a walker -No prodromal symptoms -Landed on left side, did hit head but denies LOC -Sustained a left humeral fracture, no other acute trauma on imaging obtained in the ED -Patient was ordered a LUE immobilizer, will have nursing staff place now -Will need rehab/place on discharge, PT/OT consults -Pain control with scheduled tylenol and prn morphine -Prn narcan ordered -Orthopedics consult placed -BL ALISON's for DVT PPX overnight, can start chemical DVT PPX if she is without signs of bleeding -HH/DMII diet -AM CBC, CMP, mag, PT/INR (2) Fall from standing: Plan: -Will obtain xrays of the BL knees and left foot due to pain in those areas as well -Rest of care see ambulatory dysfunction plan (3) Closed left humeral fracture: Plan: -See ambulatory dysfunction (4) CAD (coronary artery disease): Plan: -Continue plavix and statin (5) Interstitial lung disease: Plan: -Currently stable on RA and in no respiratory distress -Does have scattered expiratory wheezing on exam -Will start incentive spirometry/flutter therapy -QIDr prn DuoNebs, prn O2 to keep SpO2 between 89-92% (6) Diabetes mellitus type 2, uncontrolled: Plan: -Monitor BSG ACHS, goal is 110-160 -Normall takes 40 units lantus in the am >Will convert to 15 units BID for now -Start CF 50 and CR 15 ACHS for now -Adjust regimen as needed (7) Hypertension: Plan: -Stable -Will continue home lisinopril, spironolactone, metoprolol Plan The patient was discussed with Dr. Jaimes at the time of the admission Admission and Anticipated Discharge Date Admission Date: July 22, 2023 Subjective Patient sitting up in the chair, family at beside. Complains of pain in her knee. Family at bedside states that she has been falling all the time - chronic problem with equilibrium, but worse since she b roke her back. Have been looking into prison placement - but patient is very hesistant giving laundry situation. Patient understands it is not safe for her to go home at this time. Results & Data Results & Data Vital Signs (Past 12 Hours) Vital Signs Temp Pulse Resp BP Pulse Ox O2 Del Method 07/23/23 13:15 36.6 C 66 17 106/68 93 Room Air 07/23/23 07:17 36.7 C 66 18 152/85 H 93 Room Air PG Care Time/CCT Total # of Minutes Spent Total Time Spent with Patient: Total time spent is greater than 50% in coordination of care (as documented) at patient's floor/unit and/or counseling patient: Coding Diagnoses Ambulatory dysfunction R26.2 Fall from standing W19.XXXA Closed left humeral fracture S42.302A CAD (coronary artery disease) I25.10 Interstitial lung disease J84.9 Diabetes mellitus type 2, uncontrolled E11.65 Hypertension I10 Hypertension type: unspecified (7) Hypertension Hypertension type: unspecified Qualified Code(s): I10 - Essential (primary) hypertension
--- NOTE | 2023-07-23 15:27 | Discharge Summary ---
Discharge Summary Date of Service July 23, 2023 Notes For Next Care Provider admitted after fall, resulting in left femur fracture. Seen by orthopedics, management is nonoperative. Discharged to [facility] with left sling that is to remain in place for the next 2 weeks. Also with hematoma on head, head CT was negative for any internal bleeding Consider checking Vit D level Admission HPI Per Admitting Provider Sofia is an 83-year-old female with PMH of falls, T2DM, HLD, HTN, IBS, and CVA with right-sided LE residual deficits who presented to the [facility] ED on 07/22/23 via EMS after sustaining a ground level fall at home this afternoon. She was reportedly cooking in the kitchen, while trying to turn around she lost her balance and fell to the floor. On arrival to the ED she was noted to be hypert ensive at 219/214 but otherwise stable. Labs including CBC, CMP, lactate, high sen trop, and UA were unremarkable. CT of the head/brain wo con was read as "1. No acute intracranial abnormality or calvarial fracture. 2. Large subcutaneous left superior frontal scalp hematoma/contusion.". CT of the chest/abd/pelvis w/IV con was read as "1. Acute, comminuted and mildly displaced left proximal humeral fracture. 2. No pneumothorax. 3. Chronic interstitial lung disease.4. No acute posttraumatic intra-abdominal or intrapelvic abnormality. 5. Mild nonspecific thickening of the postmenopausal endometrium. 6. Additional incidental findings as above.". CT of the cervical spine wo con was read as negative for acute findings. And dedicated xray of the left shoulder was read as "Acute comminuted mildly displaced proximal left humeral fracture.". The patient was given 50 mcg of IV fentanyl and 0.5 mg IV Dilaudid in the ED. Unfortunately she was already having ambulatory dysfunction with the use of a walker prior to her fall. She will required rehab/placement on discharge. At the time of the exam the patient was sitting in bed in mild distress due to LUE pain. States she was in the kitchen making breakfast for her grandson who was visiting when she tried to turn and lost her balance. She fell to the ground, landing on her left side. She denies prodromal symptoms such as lightheadedness, dizziness, chest pain, increased SOB from baseline, or palpitations. She did hit the left side of her head but did not lose consciousness. Her family called EMS shortly after the fall. She did take all h er am medications prior to the fall. She confirms that she has ambulatory dysfunction at baseline, even with the use of a walker and has 3 different sets of steps in her home. We discussed code status, she clearly stated that she wishes to be a DNR/DNI and would not want resuscitation if she were to go into cardiac arrest and/or respiratory failure. She would want her sons to make medical decisions for her if she can't make them herself. Please refer to Dr. Jaimes's attestation for any changes to the treatment plan Principal Dx & Hospital Course #1 = Principal Diagnosis (1) Ambulatory dysfunction: -Presented to the ED via EMS after sustaining a ground level fall while trying to turn around in her kitchen. Pt reports hx of equilibrium problem with frequent falls, uses a walker. Family have been working on placement. -No prodromal symptoms -Landed on left side, did hit head but denies LOC - Head CT: No acute intracranial abnormality or fracture, large subcutaneous left superior scalp hematoma -Sustained a left humeral fracture, no other acute trauma on imaging obtained in the ED -Orthopedics consult - nonoperative management. Sling for the next 2 weeks. - Outpatient follow-up in 2 weeks -Pain control with scheduled tylenol and prn oxycodone will need rehab: Discharged to [facility] today (2) Fall from standing: patient main complaint is knee pain, bilateral knee x-rays show osteoarthritis, no fracture (3) Closed left humeral fracture: -See ambulatory dysfunction - nonoperative management (4) CAD (coronary artery disease): -Continue plavix and statin (5) Interstitial lung disease: -Currently stable on RA and in no respiratory distress continue incentive spirometry/flutter therapy (6) Diabetes mellitus type 2, uncontrolled: continue home [id number] units every morning (7) Hypertension: -Stable -Will continue home lisinopril, spironolactone, metoprolol Plan dispo: Discharged to [facility] today family updated at bedside Discharge Exam General: NAD, VS as above HEeNT: contusion over left side of scalp, tender to palpation, no active signs of bleeding Resp: normal respiratory effort, lungs clear to auscultation CV: RRR, no murmur, Abd: normal bowel sounds, non tender, no hepatosplenomegaly Extremities: left arm in sling, able to move fingers, distal sensation intact.,LE trace nonpitting edema Neuro: A&O x3, Updated Medication List Medication Instructions Recorded Confirmed Type cholecalciferol (vitamin D3) 50 2,000 unit PO QAM 11/11/19 07/22/23 History mcg (2,000 unit) capsule (Vitamin D3) multivit-iron 18 mg-folic acid 400 1 tab PO QAM 11/11/19 07/22/23 History mcg-calcium 500 mg-minerals tablet (Women's One Daily) OneTouch Verio Reflect Meter #1 ea 08/05/21 07/22/23 Rx (blood-glucose meter) triamcinolone acetonide 55 mcg 1 spray intranasal DAILY PRN 08/26/21 07/22/23 Rx nasal spray aerosol (Nasacort) Congestion #16.9 mL OneTouch Delica Plus Lancet 33 #400 ea 07/28/22 07/22/23 Rx gauge (lancets) Lactobacil.acidophilus-Bifido.animalis 1 cap PO DAILY 08/17/22 07/22/23 History 5 billion cell sprinkle capsule (Probiotic) vit C 250 mg-vit E 90 mg-zinc 40 1 tab PO BID 08/17/22 07/22/23 History mg-copper 1 lf-qnbvdk-seaztd capsule (PreserVision AREDS-2) insulin lispro 100 unit/mL 5 unit (0.05 mL) subcut TID 90 08/29/22 07/22/23 Rx subcutaneous pen (Humalog days #15 mL (U-100) Insulin) OneTouch Verio test strips (blood #300 ea 09/07/22 07/22/23 Rx sugar diagnostic) cranberry 400 mg capsule 400 mg PO DAILY 02/06/23 07/22/23 History duloxetine 60 mg capsule,delayed 60 mg PO QAM 90 days #90 caps 04/18/23 07/22/23 Rx release atorvastatin 40 mg tablet (Lipitor) 40 mg PO HS #90 tabs 04/25/23 07/22/23 Rx clopidogrel 75 mg tablet (Plavix) 75 mg PO DAILY #30 tabs 04/25/23 07/22/23 Rx doxazosin 1 mg tablet 1 mg PO DAILY #30 tabs 04/25/23 07/22/23 Rx lisinopril 40 mg tablet 40 mg PO QAM #30 tabs 04/25/23 07/22/23 Rx metoprolol succinate 50 mg 50 mg PO QAM #90 tabs 04/25/23 07/22/23 Rx tablet,extended release 24 hr (Toprol XL) spironolactone 25 mg tablet 12.5 mg (1/2 x 25 mg) PO DAILY #45 04/25/23 07/22/23 Rx (Aldactone) tabs insulin glargine U-300 conc 300 40 unit (0.1333 mL) subcut QAM 40 04/26/23 07/22/23 Rx unit/mL (1.5 mL) subcutaneous pen units 90 days #13.5 mL (Toujeo SoloStar U-300 Insulin) lidocaine 5 % topical patch 1 patch topical DAILY PRN pain 05/03/23 07/22/23 Rx (scale score 7-10) #30 ea pen needle, diabetic 32 gauge x #400 ea 05/16/23 07/22/23 Rx 5/32" (BD Ultra-Fine Cris Pen Needle) tramadol 50 mg tablet 50 mg PO BID PRN pain #30 tabs 05/17/23 07/22/23 Rx vibegron 75 mg tablet (Gemtesa) 75 mg PO DAILY 05/17/23 07/22/23 History methenamine hippurate 1 gram tablet 1 g PO BID #30 tabs 07/06/23 07/22/23 Rx diphenoxylate-atropine 2.5 1 tab PO BID PRN diarrhea #180 tabs 07/17/23 07/22/23 Rx mg-0.025 mg tablet (Lomotil) acetaminophen 325 mg tablet 650 mg (2 x 325 mg) PO Q6H 30 days 07/23/23 Rx #240 tabs oxycodone 5 mg tablet 5 mg PO Q6H PRN pain #10 tabs 07/23/23 Rx Hospital Stay Data Consultations 07/22/23 14:25 ED Decision to Admit Stat 07/22/23 14:53 Consult Orthopedic Surgery Routine Diagnostic Imagining Performed Shoulder X-Ray 07/22/23 11:05 XR shoulder LT min 2V routine HISTORY: 82 years-old Female shoulder pain s/p fall acute left shoulder pain status post fall COMPARISON: Chest CT of same day TECHNIQUE: 2 views of the left shoulder FINDINGS: Mild AC joint with moderate glenohumeral osteoarthritis. No dislocation. There is an acute comminuted proximal left humeral fracture with involvement of the greater and lesser tuberosities and surgical neck. 1 cm lateral displacement of the greater tuberosity fracture. IMPRESSION: Acute comminuted mildly displaced proximal left humeral fracture. ACT 112: Negative or not required by law. The above report was generated using voice recognition software. It may contain grammatical, syntax or spelling errors. Electronically signed by: Jarad Valdez M.D. 07/22/2023 12:36 PM Abdomen/Pelvis CT 07/22/23 11:[address] WITH CONTRAST; CT ABDOMEN AND PELVIS WITH IV CONTRAST ONLY HISTORY: Chest and abdominal trauma status post fall Trauma TECHNIQUE: Multiaxial CT images of the chest were performed following the IV administration of 91 cc of Optiray. A dose lowering technique was utilized adhering to the principles of ALARA. COMPARISON: Chest CT April 06, 2022, CT abdomen and pelvis 10/27/2019. FINDINGS: CT CHEST: 2.1 cm hypodense thyroid nodule. 1.3 x 1.8 cm precarinal lymph node is stable and likely benign. Moderate cardiomegaly. Extensive coronary artery calcifications. No pericardial effusion. No thoracic aortic aneurysm or dissection. Unremarkable pulmonary artery. No pneumothorax, pleural effusion, airspace consolidation or pulmonary edema. Subpleural reticulation/fibrosis redemonstrated with low suspicion for subpleural solid nodules measuring up to 4 mm. There is a mild traction bronchiectasis with mild subpleural honeycombing. There is an acute comminuted and mildly displaced fracture involving the greater and lesser tuberosities and surgical neck of the left humerus with approximately 1 cm lateral displacement. No dislocation. No additional acute fracture identified. CT ABDOMEN/PELVIS: No free air. Unremarkable spleen, moderately atrophic pancreas and liver. Mild intrahepatic and extrahepatic biliary ductal dilation, likely secondary to cholecystectomy. Patency of the hepatic and portal veins. Bilateral adrenal gland nodules measure 1.7 cm on the left and 0.9 cm on the right. These are stable and likely benign. Cortical thinning of the kidneys bilaterally with a few cysts. Bilateral extrarenal pelves.. Bladder distention with mild wall thickening. Nonspecific thickening of the postmenopausal endometrium, 8 mm. 11 mm hypodense right uterine fundal lesion, possibly a fibroid. Atherosclerosis of the aorta. No lymphadenopathy. Small hiatal hernia. Duodenal diverticula. Colonic diverticulosis. No free fluid. Mild to moderate colonic fecal retention. Normal appendix. Diastases recti. No acute fracture identified. L5 chronic wedge deformity. IMPRESSION: 1. Acute, comminuted and mildly displaced left proximal humeral fracture. 2. No pneumothorax. 3. Chronic interstitial lung disease. 4. No acute posttraumatic intra-abdominal or intrapelvic abnormality. 5. Mild nonspecific thickening of the postmenopausal endometrium. 6. Additional incidental findings as above. ACT 112: Negative or not required by law. Electronically signed by: Jarad Valdez M.D. 07/22/2023 12:[address] 07/22/23 11:06 CT cervical spine wo con CT DOSE: 3094.63 mGy.cm CLINICAL HISTORY: 82 years-old Female with Trauma. Acute neck pain status post trauma COMPARISON: 02/06/2023 TECHNIQUE: Multiple axial CT images of the cervical spine were obtained without contrast. A dose lowering technique was utilized adhering to the principles of ALARA. FINDINGS: Demineralized appearance of the bones. There is no evidence of fracture or subluxation involving the cervical spine. Vertebral body height is maintained. There is minimal anterolisthesis at C6-C7. Alignment is otherwise preserved. There is straightening of the cervical lordosis. Anterior osteophytes are seen throughout. The odontoid process and lateral masses are intact. The atlantoaxial articulation is preserved noting advanced productive degenerative change. The spinous processes appear intact. There is mild/moderate multilevel cervical spondylosis. Uncovertebral and facet arthropathy contribute to neural foraminal narrowing at several levels. There is severe disc space narrowing at C5-C6 with associated endplate sclerosis. Only mild narrowing is seen at the remaining cervical levels. Posterior disc osteophyte complexes at C4-C5 and, C5- C6, and C6-C7 may contribute to acquired compromising the central canal. The cervical soft tissues appear unremarkable. The visualized lung apices appear clear. IMPRESSION: No acute cervical spine fracture or subluxation. ACT 112: Negative or not required by law. The above report was generated using voice recognition software. It may contain grammatical, syntax or spelling errors. Electronically signed by: Jarad Valdez M.D. 07/22/2023 12:[address] 07/22/23 11:[address] WITH CONTRAST; CT ABDOMEN AND PELVIS WITH IV CONTRAST ONLY HISTORY: Chest and abdominal trauma status post fall Trauma TECHNIQUE: Multiaxial CT images of the chest were performed following the IV administration of 91 cc of Optiray. A dose lowering technique was utilized adhering to the principles of ALARA. COMPARISON: Chest CT April 06, 2022, CT abdomen and pelvis 10/27/2019. FINDINGS: CT CHEST: 2.1 cm hypodense thyroid nodule. 1.3 x 1.8 cm precarinal lymph node is stable and likely benign. Moderate cardiomegaly. Extensive coronary artery calcifications. No pericardial effusion. No thoracic aortic aneurysm or dissection. Unremarkable pulmonary artery. No pneumothorax, pleural effusion, airspace consolidation or pulmonary edema. Subpleural reticulation/fibrosis redemonstrated with low suspicion for subpleural solid nodules measuring up to 4 mm. There is a mild traction bronchiectasis with mild subpleural honeycombing. There is an acute comminuted and mildly displaced fracture involving the greater and lesser tuberosities and surgical neck of the left humerus with approximately 1 cm lateral displacement. No dislocation. No additional acute fracture identified. CT ABDOMEN/PELVIS: No free air. Unremarkable spleen, moderately atrophic pancreas and liver. Mild intrahepatic and extrahepatic biliary ductal dilation, likely secondary to cholecystectomy. Patency of the hepatic and portal veins. Bilateral adrenal g land nodules measure 1.7 cm on the left and 0.9 cm on the right. These are stable and likely benign. Cortical thinning of the kidneys bilaterally with a few cysts. Bilateral extrarenal pelves.. Bladder distention with mild wall thickening. Nonspecific thickening of the postmenopausal endometrium, 8 mm. 11 mm hypodense right uterine fundal lesion, possibly a fibroid. Atherosclerosis of the aorta. No lymphadenopathy. Small hiatal hernia. Duodenal diverticula. Colonic diverticulosis. No free fluid. Mild to moderate colonic fecal retention. Normal appendix. Diastases recti. No acute fracture identified. L5 chronic wedge deformity. IMPRESSION: 1. Acute, comminuted and mildly displaced left proximal humeral fracture. 2. No pneumothorax. 3. Chronic interstitial lung disease. 4. No acute posttraumatic intra-abdominal or intrapelvic abnormality. 5. Mild nonspecific thickening of the postmenopausal endometrium. 6. Additional incidental findings as above. ACT 112: Negative or not required by law. Electronically signed by: Jarad Valdez M.D. 07/22/2023 12:[address] 07/22/23 11:06 CT head/brain wo con CLINICAL HISTORY: 82 years-old Female with Trauma. Acute head trauma TECHNIQUE: Multiple axial CT images of the head were obtained without contrast. A dose lowering technique was utilized adhering to the principles of ALARA. COMPARISON: 04/25/2023 FINDINGS: No acute intracranial hemorrhage, midline shift, intracranial mass, hydrocephalus, territorial ischemia or abnormal extra-axial collection. Involutional changes with chronic microvascular ischemic disease. Chronic basal ganglia lacunar infarcts. The calvarium is intact. Left frontal scalp subcutaneous hematoma measures 10 x 3 cm. The paranasal sinuses, mastoid air cells, and middle ear cavities are clear. IMPRESSION: 1. No acute intracranial abnormality or calvarial fracture. 2. Large subcutaneous left superior frontal scalp hematoma/contusion. ACT 112: Negative or not required by law. The above report was generated using voice recognition software. It may contain grammatical, syntax or spelling errors. Electronically signed by: Jarad Valdez M.D. 07/22/2023 12:14 PM Foot X-Ray 07/22/23 14:56 XR foot LT 2V HISTORY: 82 years-old Female fall, left foot pain acute left foot pain status post fall COMPARISON: Ankle radiograph 10/07/2017 TECHNIQUE: 2 views left foot FINDINGS: Limited exam secondary to positioning. Demineralized appearance of the bones with mild to moderate osteoarthritis. Prominent spurring of the calcaneus. No acute fracture or dislocation. IMPRESSION: No acute fracture or dislocation identified. ACT 112: Negative or not required by law. The above report was generated using voice recognition software. It may contain grammatical, syntax or spelling errors. Electronically signed by: Jarad Valdez M.D. 07/22/2023 3:21 PM Knee X-Ray 07/22/23 14:56 XR knee LT 1 or 2V routine, XR knee RT 1 or 2V routine HISTORY: 82 years-old Female fall, BL knee pain acute bilateral knee pain status post fall COMPARISON: None TECHNIQUE: 2 views of the bilateral knees FINDINGS: LEFT: Chondrocalcinosis. Mild to moderate medial patellofemoral compartment osteoarthritis. Trace joint effusion. No acute fracture or dislocation. RIGHT: Chondrocalcinosis. Mild lateral with mild to moderate medial and patellofemoral compartment osteoarthritis. Arterial calcifications. No large joint effusion. IMPRESSION: No acute fracture or dislocation. ACT 112: Negative or not required by law. The above report was generated using voice recognition software. It may contain grammatical, syntax or spelling errors. Electronically signed by: Jarad Valdez M.D. 07/22/2023 3:22 PM Knee X-Ray 07/22/23 14:56 XR knee LT 1 or 2V routine, XR knee RT 1 or 2V routine HISTORY: 82 years-old Female fall, BL knee pain acute bilateral knee pain status post fall COMPARISON: None TECHNIQUE: 2 views of the bilateral knees FINDINGS: LEFT: Chondrocalcinosis. Mild to moderate medial patellofemoral compartment osteoarthritis. Trace joint effusion. No acute fracture or dislocation. RIGHT: Chondrocalcinosis. Mild lateral with mild to moderate medial and patellofemoral compartment osteoarthritis. Arterial calcifications. No large joint effusion. IMPRESSION: No acute fracture or dislocation. ACT 112: Negative or not required by law. The above report was generated using voice recognition software. It may contain grammatical, syntax or spelling errors. Electronically signed by: Jarad Valdez M.D. 07/22/2023 3:22 PM Pending Results Patient Have Any Pending Studies at Discharge: No Discharge Instructions Given to Patient (Per Discharging Provider) Ms. Carpenter you were hospitalized after a fall, resulting in a left femur fracture. You were seen by orthopedics and the treatment is nonoperative. You should remain in the sling for the next 2 weeks, at that time they will reevaluate and likely start gentle range of motion exercises. You are being discharged to [facility] to assist you during this time and they will help you with next steps for possible placement. you also hit your head during her fall, luckily there was no internal damage, but you do have a bruise on top of your head. Knee x-rays did not show any fracture or broken bones, you do have arthritis in both knees. For [facility]/next provider - recommend checking vit D levels - pain control with scheduled tylenol, prn oxycodone Total Time Total Time Spent Total Time Spent (In Minutes): Time spend day of discharge 40 minutes including direct patient care, medication reconciliation, documentation, review of labs and images, and coordination of care. Coding Level of Care Code 16999 INP/OBS DISCH >30 MIN Diagnoses Ambulatory dysfunction R26.2 Fall from standing W19.XXXA Closed left humeral fracture S42.302A CAD (coronary artery disease) I25.10 Interstitial lung disease J84.9 Diabetes mellitus type 2, uncontrolled E11.65 Hypertension I10 Hypertension type: unspecified
== END 2023-07-23 18:12 | DRG 563 ==
LOC: ED 10:48 → 3E 14:31 → SUATTDRO 14:31 → 3E 15:27

== ENCOUNTER 2024-03-22 10:31 | Inpatient (IN) ==
[2024-03-22 10:57] LABS: Basophils # (auto) 0.04 K/uL (0.00-0.20); Basophils % (auto) 0.4 %; Eosinophils % (auto) 0.9 %; Hematocrit (blood only) 39.8 % (37.0-47.0); Immature Granulocytes # (auto) 0.04 K/uL (0.01-0.20); Immature Granulocytes % (auto) 0.4 %; Lymphocytes # (auto) 1.64 K/uL (1.20-3.40); Lymphocytes % (auto) 14.5 %; Mean Corpuscular Hemoglobin 29.5 pg (25.0-34.0); Mean Corpuscular Hgb Conc 32.7 g/dL (32.0-36.0); Mean Corpuscular Volume 90.2 fL (80.0-100.0); Mean Platelet Volume 9.7 fL (9.4-12.4); Monocytes # (auto) 0.95 K/uL (0.11-0.59); Monocytes % (auto) 8.4 %; Neutrophils # (auto) 8.52 K/uL (1.40-6.50); Neutrophils % (auto) 75.4 %; Platelet Count 291 K/uL (130-400); RDW Coefficient of Variation 12.7 % (11.5-14.5); RDW Standard Deviation 42.1 fL (36.4-46.3); Red Blood Count 4.41 M/uL (4.20-5.40); White Blood Count 11.29 K/ul (4.8-10.8)
[2024-03-22 11:20] LABS: Albumin Level 3.9 gm/dl (3.4-5.0); BUN Creatinine Ratio 21.6 (10-20); Bilirubin,Total 0.8 mg/dl (0.2-1.0); Calcium 9.6 mg/dl (8.6-10.3); Creatinine Clr Calc Pharmacy 41.4 ml/min; Globulin 3.8 gm/dl (2.5-4.0); Potassium 3.9 mmol/L (3.5-5.1); Total Protein 7.7 gm/dl (6.0-8.3)
[2024-03-22 11:26] LABS: Troponin I High Sensitivity 16.6 pg/ml (0-14)
--- NOTE | 2024-03-22 11:38 | Emergency Department Note ---
Impression & Plan Abdominal pain, lower, Right sided sciatica, Pyelonephritis, Closed compression fracture of lumbar vertebra ED Provider Note NAME: DALY BEATTY AGE: 83 SEX: Female INFORMANT: Patient ED PROVIDER(S): Ambrosio Simms MD CHIEF COMPLAINT: Right groin and back pain PLAN: Disposition: Admitted Outpatient prescription management: none Referral: None MEDICAL DECISION MAKING: Patient presented regarding back pain. She has a history of back fracture. Imaging was performed. Blood work did reveal a mild leukocytosis. Urinalysis was concerning for infection. CT imaging reveals stable compression fracture however intra-abdominal findings are concerning for pyelonephritis. Patient was treated with IV Rocephin. She was feeling much better after pain management With IV narcotic. I discussed further management in the hospital and the patient was in agreement. Consultation was made with the hospital service. Patient was evaluated in the ER and admitted for further management. Care/management discussed with: manager customer Level of care consideration(s): After review of the information above and other included data, I feel the patient requires escalation of care to admission Triage Nursing notes: reviewed and agree them. Vital Signs: reviewed and remarkable for hypertension Additional History obtained from: none Chronic Medical/Social Conditions affecting care: none Prior/ Outside/ External records reviewed: none Differential Diagnosis: Sciatica, complication of recent back fracture, renal colic, UTI, appendicitis, diverticulitis, mesenteric ischemia, aortic pathology, infections, inflammatory bowel disease, PUD, biliary pathology, as well as other pathologies. Diagnostics, independently interpreted by me: ECG: Twelve-lead ECG reveals sinus rhythm with first-degree block at [address] elevation or depression. Cardiac Monitoring: Cardiac monitoring ordered by me: The patient was placed on continuous cardiac monitoring and observed. It revealed a sinus rhythm at 85 beats per minute without ectopy or evidence of dysrhythmia. Medical decision rules: none Imaging studies: CT imaging of the pelvis is concerning for right-sided pyelonephritis. Patient has a L 5 lumbar compression fracture. I refer you to the EMR for further details. HPI: 83 year old Female arrives for evaluation of lower abdominal pain. This started over the last week and is worsening. Patient also notes having progressive lower back pain that radiates down the right leg over the last 3 weeks. She notes having a fall and diagnosed with a back fracture.. The patient also notes the following associated symptoms, chronic diarrhea which has not changed significantly. The patient has tried Tylenol for relieving factors. Current pain is rated as 10/10. Patient does note a history of adverse reaction to narcotics. Patient does note some tingling in her lower extremities which is chronic. She does have a history of peripheral neuropathy from diabetes. Pt denies LOC, headache, fevers, chills, diaphoresis, visual changes, neck pain, chest pain, breathing difficulties, nausea, vomiting, saddle anesthesia, bowel or bladder incontinence, melena, hematochezia, urinary symptoms, weakness, lymphadenopathy, rash, or other complaints.. PAST MEDICAL HISTORY: See Below, diabetes, hypertension PAST SURGICAL HISTORY: See Below, SOCIAL HISTORY: See Below, retired HOME MEDICATIONS: See Below ALLERGIES: See Below VITALS: See Below PHYSICAL EXAMINATION: GENERAL: Awake, alert, uncomfortable-appearing, in no distress HENT: Normocephalic, atraumatic. Oropharynx unremarkable. EYES: Normal conjunctiva. Sclera non-icteric. NECK: Inspection normal. Non-tender. Supple. No nuchal rigidity. FROM. No masses. RESPIRATORY: Clear to auscultation. No wheezes. No rales. Normal respiratory effort. CARDIAC: Normal rate. Normal rhythm. No murmurs. No rubs. Extremities warm and well perfused. Pulses equal. No JVD. GI: Soft, non-distended. No tenderness to palpation. No rebound or guarding. No masses. RECTAL: Deferred. MUSCULOSKELETAL: Atraumatic. Chest examination reveals no tenderness. The back is symmetrical on inspection without obvious abnormality. There is no CVA tenderness to palpation. Right sided lumbar tenderness to palpation. No step- offs. No joint edema. LOWER EXTREMITIES: Calves are equal size bilaterally and non-tender. No edema. No discoloration. NEURO: Normal sensorium. No sensory or motor deficits noted except subjective slight decrease sensation in the distal lower extremities bilaterally which is equal. No saddle anesthesia. SKIN: No rash or jaundice noted. PROCEDURES: none CRITICAL CARE: none OBSERVATION NOTE: none Past Med/Surg History Problem List (Updated 03/23/24 @ 16:29 by Ambrosio Simms MD) Closed compression fracture of lumbar vertebra (Acute) Spinal stenosis, lumbar region with neurogenic claudication Pyelonephritis (Acute) Right sided sciatica (Acute) Abdominal pain, lower (Acute) Tiredness Hypertension Dermatitis Low back pain Overactive bladder Hypomagnesemia (Acute) Lumbar contusion (Acute) Left leg weakness (Acute) Nonproliferative diabetic retinopathy Diabetic peripheral neuropathy Stented coronary artery Loss of protective sensation of skin of foot H/O: stroke with residual effects Type 2 diabetes mellitus with insulin therapy Albuminuria Recurrent UTI (urinary tract infection) Urine incontinence (Chronic) Age-related cognitive decline (Chronic) Diabetic peripheral neuropathy associated with type 2 diabetes mellitus (Acute) Gait disturbance (Acute) Hyperlipidemia (Acute) IBS (irritable bowel syndrome) (Acute) Nephrolithiasis (Acute) Neuropathic pain of both feet (Acute) Vitamin D deficiency disease (Acute) Medical History (Updated 03/23/24 @ 16:29 by Ambrosio Simms MD) Stroke-like symptom Numbness of left hand Humerus fracture Balance problem Stroke Fall Abnormal thyroid blood test Localized swelling of both lower legs Hypoglycemia Lupus Closed left humeral fracture (07/22/23) from a fall Interstitial lung disease Diabetes mellitus type 2, uncontrolled CAD (coronary artery disease) Hypertension Contact dermatitis Chronic cough Rash Herpes zoster, ocular Contusion of leg, left Gross hematuria Physical deconditioning Expressive aphasia UTI (urinary tract infection) Chronic diarrhea Spinal stenosis of lumbar region Cerebrovascular disease Family history of dementia Neurogenic claudication due to lumbar spinal stenosis Arm DVT (deep venous thromboembolism), acute Mitral regurgitation Recurrent UTI Hx of renal calculi C. difficile colitis Surgical History History of lithotripsy S/P cardiac catheterization Hx of cholecystectomy Family History (Updated 03/06/24 @ 11:08 by BHARTI Schrader) Mother Alzheimer disease Hypertension Brother Diabetes Myocardial infarction Father Hypertension Sister Lung cancer Other Family history non-contributory Stroke Denies family history of Ovarian cancer Prostate cancer Breast cancer Colorectal cancer Social History Smoking Status: Never smoker Second Hand Exposure: No; Do You Dip or Chew Tobacco: No; Hx Alcohol Use: No Hx Substance Use: No Preferred Language: Italian Communication Ability: Effective Visual Impairment: No Limitations Hearing Ability: Normal Heat Regulator Required: No Beliefs That Will Affect Care: None marital status: / Current Living Situation: Alone Current Living Situation Comment: recently moved out of assisted living to back home alone current occupational status: retired Feels Safe at Home: Yes Childhood Exposure to Second-Hand Smoke: No Dental Care, Regularly: No Physical Activity Frequency: Does not Exercise Seatbelt Use: always Sunscreen Use: No Assistive Devices: Walker Allergies Allergies Allergy/AdvReac Type Severity Reaction Status Date / Time dapsone Allergy Intermediate Rash Verified 03/06/24 11:03 Sulfa (Sulfonamide Allergy Mild Unknown Verified 03/06/24 11:03 Antibiotics) latex Allergy Unknown Unknown Verified 03/06/24 11:03 ciprofloxacin AdvReac Intermediate "i blew up Verified 03/06/24 11:03 like a balloon" per pt adhesive AdvReac Unknown Unknown Verified 03/06/24 11:03 metronidazole [From Flagyl] AdvReac Unknown Unknown Verified 03/06/24 11:03 red dye AdvReac Unknown Unknown Verified 03/06/24 11:03 Home Meds Home Medications Medication Instructions Recorded Confirmed multivit-iron 18 mg-folic acid 400 1 tab PO QAM 11/11/19 03/22/24 mcg-calcium 500 mg-minerals tablet (Women's One Daily) Lactobacil.acidophilus-Bifido.animalis 1 cap PO DAILY 08/17/22 03/22/24 5 billion cell sprinkle capsule (Probiotic) vit C 250 mg-vit E 90 mg-zinc 40 1 tab PO BID 08/17/22 03/22/24 mg-copper 1 lc-evirzg-bcbuei capsule (PreserVision AREDS-2) cranberry 400 mg capsule 400 mg PO DAILY 02/06/23 03/22/24 vibegron 75 mg tablet (Gemtesa) 75 mg PO DAILY 05/17/23 03/22/24 insulin glargine U-300 conc 300 40 unit subcut UD 08/08/23 03/22/24 unit/mL (1.5 mL) subcutaneous pen (Toujeo SoloStar U-300 Insulin) acetaminophen 325 mg tablet 325 - 650 mg PO Q6H PRN Pain 12/21/23 03/22/24 lidocaine 4 % topical patch 1 patch topical DAILY PRN Pain 12/21/23 03/22/24 duloxetine 60 mg capsule,delayed 60 mg PO UD 03/22/24 03/22/24 release insulin lispro 100 unit/mL 5 - 10 unit subcut UD 03/22/24 03/22/24 subcutaneous pen (Humalog KwikPen (U-100) Insulin) Previous Rx's Medication Instructions Recorded OneTouch Verio Reflect Meter #1 ea 08/05/21 (blood-glucose meter) OneTouch Delica Plus Lancet 33 #400 ea 07/28/22 gauge (lancets) atorvastatin 40 mg tablet (Lipitor) 40 mg PO HS #90 tabs 04/25/23 clopidogrel 75 mg tablet (Plavix) 75 mg PO DAILY #30 tabs 04/25/23 doxazosin 1 mg tablet 1 mg PO DAILY #30 tabs 04/25/23 lisinopril 40 mg tablet 40 mg PO QAM #30 tabs 04/25/23 metoprolol succinate 50 mg 50 mg PO QAM #90 tabs 04/25/23 tablet,extended release 24 hr (Toprol XL) spironolactone 25 mg tablet 12.5 mg (1/2 x 25 mg) PO DAILY #45 04/25/23 (Aldactone) tabs pen needle, diabetic 32 gauge x #400 ea 05/16/23/32" (BD Ultra-Fine Cris Pen Needle) methenamine hippurate 1 gram tablet 1 g PO BID #30 tabs 07/06/23 duloxetine 30 mg capsule,delayed 30 mg PO DAILY 90 days #90 caps 11/15/23 release (Cymbalta) diphenoxylate-atropine 2.5 1 tab PO DAILY diarrhea #90 tabs 11/20/23 mg-0.025 mg tablet (Lomotil) ketoconazole 2 % topical cream 1 applic topical BID 2 weeks #30 01/17/24 grams OneTouch Verio test strips (blood #300 ea 03/19/24 sugar diagnostic) cefdinir 300 mg capsule 300 mg PO BID 3 days #6 caps 03/23/24 dexamethasone 6 mg tablet 6 mg PO DAILY #8 tabs 03/23/24 Results & Data (ED) Vital Signs Vital Signs - 24 hr 03/22/24 10:31 03/22/24 10:39 Temperature 36.7 C Temperature Source Oral Pulse Rate 70 70 Pulse Rhythm Regular Respiratory Rate 18 18 Respiratory Effort / Characteristics Non-Labored Respiratory Depth Normal Respiratory Pattern Regular Blood Pressure 212/95 H Blood Pressure Mean 134 Pulse Oximetry 95 95 Oxygen Delivery Method Room Air Room Air Sepsis Recent Fever Within 48 Hours No Sepsis New/Unexplained Change in Mental Status N/A Sepsis Action Taken by Nursing No Action Required Laboratory Data 03/23/24 06:01 03/23/24 06:01 Lab Results 03/22/24 03/22/24 Range/Units 10:45 12:15 WBC 11.29 H (4.8-10.8) K/ul RBC 4.41 (4.20-5.40) M/uL Hgb 13.0 (12.0-16.0) g/dl Hct 39.8 (37.0-47.0) % MCV 90.2 (80.0-100.0) fL MCH 29.5 (25.0-34.0) pg MCHC 32.7 (32.0-36.0) g/dL RDW Std Deviation 42.1 (36.4-46.3) fL RDW Coeff of Linda 12.7 (11.5-14.5) % Plt Count 291 (130-400) K/uL MPV 9.7 (9.4-12.4) fL Immature Gran % (Auto) 0.4 % Neut % (Auto) 75.4 % Lymph % (Auto) 14.5 % [place] % (Auto) 8.4 % Eos % (Auto) 0.9 % Baso % (Auto) 0.4 % Neut # (Auto) 8.52 H (1.40-6.50) K/uL Lymph # (Auto) 1.64 (1.20-3.40) K/uL [place] # (Auto) 0.95 H (0.11-0.59) K/uL Eos # (Auto) 0.10 (0.00-0.50) K/uL Baso # (Auto) 0.04 (0.00-0.20) K/uL Immature Gran # (Auto) 0.04 (0.01-0.20) K/uL Sodium 140 (136-145) mmol/L Potassium 3.9 (3.5-5.1) mmol/L Chloride 104 (98-107) mmol/L Carbon Dioxide 30 (21-32) mmol/L Anion Gap 6 (3-11) BUN 19 (6-23) mg/dl Creatinine 0.88 (0.6-1.2) mg/dl Est Cr Clr Drug Dosing 41.4 ml/min eGFR 65.17 BUN/Creatinine Ratio 21.6 H (10-20) Glucose 135 H (70-99(Fasting)) mg/dl Calcium 9.6 (8.6-10.3) mg/dl Total Bilirubin 0.8 (0.2-1.0) mg/dl AST 20 (13-39) U/L ALT 12 (7-52) U/L Alkaline Phosphatase 51 (34-104) U/L Troponin I High Sens 16.6 H (0-14) pg/ml Total Protein 7.7 (6.0-8.3) gm/dl Albumin 3.9 (3.4-5.0) gm/dl Globulin 3.8 (2.5-4.0) gm/dl Albumin/Globulin Ratio 1.0 (0.9-2) Lipase 11 (11-82) U/L Urine Color Yellow Urine Appearance Clear (Clear) Urine pH 6.5 (4.5-7.5) Ur Specific [place] 1.009 (1.000-1.030) Urine Protein 2+ H (Negative) Urine Glucose (UA) Negative (Negative) Urine Ketones Negative (Negative) Urine Blood Negative (Negative) Urine Nitrite Positive A (Negative) Urine Bilirubin Negative (Negative) Urine Urobilinogen Negative (Negative) Ur Leukocyte Esterase 1+ H (Negative) Urine WBC (Auto) 21-50 H (0-5) /hpf Urine RBC (Auto) 0-2 (0-2) /hpf U Hyaline Cast (Auto) 0-2 (0-2) /lpf U Epithel Cells (Auto) 0-2 (0-2) /hpf Urine Bacteria (Auto) None Seen (None Seen) Administered Medications Atorvastatin Calcium (Atorvastatin 40 Mg Tab) 40 mg PO HS MARIE Stop: 04/21/24 20:59 Last Admin: 03/22/24 21:43 Dose: 40 mg Documented By: BMS Clopidogrel Bisulfate (Clopidogrel Bisulfate 75 Mg Tab) 75 mg PO DAILY MARIE Stop: 04/22/24 08:59 Last Admin: 03/23/24 08:38 Dose: 75 mg Documented By: TMP Duloxetine HCl (Duloxetine Hcl 30 Mg Cap) 30 mg PO DAILY MARIE Stop: 04/22/24 08:59 Last Admin: 03/23/24 08:37 Dose: 30 mg Documented By: TMP Duloxetine HCl (Duloxetine Hcl 60 Mg Cap) [facility] [place]: 04/22/24 08:59 Last Admin: 03/23/24 08:37 Dose: 60 mg Documented By: JOSSELINE Heparin Sodium (Porcine) (Heparin Sod 5,000 Unit/0.5 Ml Vial) 5,000 units SQ Q8 [facility] Stop: 04/21/24 21:59 Last Admin: 03/23/24 13:37 Dose: 5,000 units Documented By: Admin: 03/23/24 06:29 Dose: 5,000 units Documented By: Admin: 03/22/24 21:42 Dose: 5,000 units Documented By: DENNIS Ceftriaxone Sodium (Rocephin) 2,000 mg in 50 mls @ 100 mls/hr IV Q24H [facility] Stop: 03/28/24 14:29 Last Infusion: 03/23/24 14:25 Dose: Infused Documented By: Admin: 03/23/24 13:37 Dose: 100 mls/hr Documented By: JOSSELINE Dexamethasone 6 mg/ Syringe 1.5 mls @ 1 mls/min IV DAILY [facility] Stop: 04/22/24 08:59 Last Admin: 03/23/24 08:36 Dose: 1 mls/min Documented By: JOSSELINE Insulin Aspart (Insulin Aspart Per Unit Charge) 0 units SC [facility] Stop: 04/22/24 11:29 Last Admin: 03/23/24 12:46 Dose: 13 units Documented By: JOSSELINE Co-signed By: KATHERINE Insulin Glargine (Lantus Per Unit Charge) 35 units SC [facility] Stop: 04/22/24 08:59 Last Admin: 03/23/24 09:23 Dose: 35 units Documented By: JOSSELINE Co-signed By: KATHERINE Lisinopril (Lisinopril 40 Mg Tab) 40 mg PO [facility] Stop: 04/22/24 08:59 Last Admin: 03/23/24 08:37 Dose: 40 mg Documented By: JOSSELINE Metoprolol Succinate (Metoprolol Succ 50mg Ext Rel Tab) 50 mg PO [facility] Stop: 04/22/24 08:59 Last Admin: 03/23/24 08:37 Dose: 50 mg Documented By: JOSSELINE Miscellaneous (Remove Lidoderm Patch) 1 each N/A DAILY@2100 [facility] Stop: 04/21/24 22:59 Last Admin: 03/22/24 21:45 Dose: 1 each Documented By: DENNIS Spironolactone (Spironolactone 12.5 Mg Tab) 12.5 mg PO DAILY MARIE Stop: 04/22/24 08:59 Last Admin: 03/23/24 08:38 Dose: 12.5 mg Documented By: JOSSELINE Vibegron (Vibegron 75 Mg Tab) 75 mg PO DAILY MARIE Stop: 04/22/24 08:59 Last Admin: 03/23/24 08:37 Dose: 75 mg Documented By: JOSSELINE Discontinued Medications Dexamethasone (Dexamethasone Sod Inj 4 Mg/Ml Vial) 10 mg IV NOW STA Stop: 03/22/24 14:36 Last Admin: 03/22/24 15:32 Dose: 10 mg Documented By: KEITH Hydromorphone HCl (Hydromorphone Inj 0.5 Mg/0.5 Ml Syr) 0.25 mg IV Q15M PRN PRN Reason: Pain Stop: 04/05/24 12:03 Last Admin: 03/22/24 12:17 Dose: 0.25 mg Documented By: ROSE MARIE Ceftriaxone Sodium (Rocephin) 2,000 mg in 50 mls @ 100 mls/hr IV NOW STA Stop: 03/22/24 14:13 Last Infusion: 03/22/24 14:44 Dose: Infused Documented By: ROSE MARIE Admin: 03/22/24 14:09 Dose: 100 mls/hr Documented By: ROSE MARIE Insulin Aspart (Insulin Aspart Per Unit Charge) 0 units SC Q6 [facility] Stop: 04/21/24 15:09 Last Admin: 03/23/24 06:21 Dose: Not Given Documented By: DENNIS Co-signed By: DN Admin: 03/23/24 01:17 Dose: 3 units Documented By: DENNIS Co-signed By: centralized traffic control operator: 03/22/24 16:55 Dose: Not Given Documented By: JOSSELINE Insulin Aspart (Insulin Aspart Per Unit Charge) 0 units SC ACHS MARIE Stop: 03/22/24 23:58 Last Admin: 03/22/24 21:42 Dose: 1 units Documented By: DENNIS Co-signed By: centralized traffic control operator: 03/22/24 17:56 Dose: Not Given Documented By: JOSSELINE Lidocaine (Lidocaine 5% 1 Patch) 1 patch TD NOW STA Stop: 03/22/24 14:36 Last Admin: 03/22/24 15:32 Dose: 1 patch Documented By: KEITH Ondansetron HCl (Ondansetron Inj 2 Mg/Ml 2 Ml Vial) 4 mg IV NOW STA Stop: 03/22/24 12:05 Last Admin: 03/22/24 12:17 Dose: 4 mg Documented By: ROSE MARIE Discharge Plan Visit Data Chief Complaint: Abdominal Pain Stated Complaint: AB PAIN ED Provider: Ambrosio Simms Discharge Problem: Abdominal pain, lower, Right sided sciatica, Pyelonephritis, Closed compression fracture of lumbar vertebra Patient Disposition: Admitted As Inpatient Discharge Instructions Interventions: ED Discharge Assessment Last Done: 03/22/24 15:53
[2024-03-22] MEDS: ONDANSETRON INJ 2 MG/ML 2 ML VIAL IV STA (12:17)
[2024-03-22] MEDS: HYDROmorphone INJ 0.5 MG/0.5 ML SYR IV PRN (12:17)
[2024-03-22 12:42] LABS: Appearance Urine Clear (Clear); Bacteria Urine Automated None Seen (None Seen); Bilirubin Urine Negative (Negative); Blood Urine Negative (Negative); Color Urine Yellow; Epithelial Cell Urine Auto 0-2 /hpf (0-2); Glucose Urine UA Negative (Negative); Ketones Urine Negative (Negative); Leukocyte Esterase Urine 1+ (Negative); Nitrite Urine Positive (Negative); Protein Urine 2+ (Negative); RBC Urine Automated 0-2 /hpf (0-2); Specific Gravity Urine 1.009 (1.000-1.030); Urobilinogen Urine Negative (Negative); WBC Urine Automated 21-50 /hpf (0-5); pH Urine 6.5 (4.5-7.5)
[2024-03-22 12:43] LABS: Cast Urine Automated 0-2 /lpf (0-2)
--- NOTE | 2024-03-22 13:34 | CT Scan Report ---
EXAM: CT Lumbar Spine Without Intravenous Contrast INDICATION: Radicular pain right leg. TECHNIQUE: Axial computed tomography images of the lumbar spine without intravenous contrast. Sagittal and coronal reformatted images were created and reviewed. This CT exam was performed using one or more of the following dose reduction techniques: automated exposure control, adjustment of the mA and/or kV according to patient size, and/or use of iterative reconstruction technique. COMPARISON: 12/19/2023 FINDINGS: Limitations: None. Vertebrae: The bones are markedly demineralized. There is stable compression fracture of L5 with about 50% anterior height loss. Diffuse facet arthrosis and spondylosis. No acute fracture. No subluxation. Sacrum/coccyx: No significant abnormality noted. No acute change noted. Discs/spinal canal/neural foramina: There is moderate canal and foraminal stenosis L2-L3 and L3-L4. Severe canal stenosis identified at L4-L5. Soft tissues: No significant abnormality noted. Vasculature: Atherosclerotic calcification of the aorta and branches. No aneurysm. Kidneys and ureters: There is a 2 mm right kidney stone. There is right hydroureteronephrosis. The distal ureter is not included. 3 mm nonobstructing left kidney stone. IMPRESSION: 1. No acute abnormality. Stable multilevel degenerative changes particularly at L4-L5 with severe stenosis. 2. Right hydroureteronephrosis and nonobstructing stone in each kidney. See separately dictated CT abdomen pelvis report from the same day. ACT 112: Negative or not required by law. rScriptor Unformatted Report Format: Options: ue nif ur chi wcta rw b ui n dr sl wm sc sca na Contrast: []ml of [Optiray 320] was administered intravenously. Gender:[Patient Gender] Age:[Patient Age] HISTORY:[ Footer: <nl> <nl> <nl>ACT 112: Negative or not required by law. EXAM: [ Digits: * Views: COMPARISON: Electronically signed by Mercy Reeves 03-22-2024 13:34 PM
--- NOTE | 2024-03-22 13:38 | CT Scan Report ---
EXAM: CT Abdomen and Pelvis Without Intravenous Contrast INDICATION: Groin pain radiating to the right leg. Diarrhea. TECHNIQUE: Axial computed tomography images of the abdomen and pelvis without intravenous contrast. Sagittal and coronal reformatted images were created and reviewed. This CT exam was performed using one or more of the following dose reduction techniques: automated exposure control, adjustment of the mA and/or kV according to patient size, and/or use of iterative reconstruction technique. COMPARISON: No relevant prior studies available. FINDINGS: Limitations: None. Lung bases: Basilar subpleural fibrotic changes noted in each lung. Pleural space: No visualized pleural effusion or pneumothorax. Heart: Cardiomegaly. Dense coronary calcification or stent noted. Mediastinum: No abnormality noted. ABDOMEN: Liver: Lack of intravenous contrast limits detection of some masses. No abnormality noted. Gallbladder and bile ducts: Cholecystectomy. No ductal dilation or stone noted. Pancreas: No pancreatic mass, calcification, inflammation or ductal dilation noted. Spleen: No significant abnormality noted. Adrenals: 1.5 x 1.3 cm left adrenal adenoma. The right appears normal. Kidneys and ureters: There is mild right hydroureteronephrosis and inflammation of the ureter. No ureteral stone identified. There is a punctate stone in each kidney. Stomach and bowel: Colonic diverticulosis without diverticulitis. No intestinal thickening or obstruction. PELVIS: Appendix: No findings to suggest acute appendicitis. Bladder: Appears normal for the degree of filling. No stones or inflammation. No large mass. Masses may not be detected in the absence of opacification. Reproductive: No abnormalities noted. ABDOMEN and PELVIS: Intraperitoneal space: No free air. No significant fluid collection. Bones/joints: Degenerative changes noted throughout the spine. No acute osseous abnormality seen. Old left L5 fracture. Soft tissues: No significant abnormality noted. Vasculature: No abdominal aortic aneurysm. Lymph nodes: No pathologically enlarged lymph nodes. IMPRESSION: 1. Mild right hydroureteronephrosis with inflammation of the right ureter. No stone identified. Consider recently passed stone and pyelonephritis. The former is favored. 2. Punctate stones in each kidney. ACT 112: Negative or not required by law. Electronically signed by Mercy Reeves 03-22-2024 13:34 PM
--- NOTE | 2024-03-22 14:08 | History & Physical Report ---
Date of Service March 22, 2024 Assessment & Plan (1) Pyelonephritis: Plan: Sofia is an 83-year-old female with a history of CAD with PCI, type II DM, IBS, diabetic neuropathy, right-sided sciatica, hyperlipidemia, anxiety/depression presents to the ER with mild hydroureteronephrosis and inflammation of the right ureter. No obstructing stone is seen, suspicious passed stone and pyelonephritis. She is admitted for pyelonephritis. Additionally on admitting evaluation concern for loss of strength in the right leg with decrease in muscle bulk potentially reflective of critical lumbar stenosis with severe stenosis seen on CT. She is admitted with orthopedic spine consultation and MRI pending. Dexamethasone was started forpain and strength loss. Pyelonephritis Mild leukocytosis UA is with 1+ leukocyte esterase and nitrites. UCx pending Continue Rocephin No obstruction seen on CT, findings are suspicious for recently passed stone Type II DM Continue insulin glargine 40 units a.m., SSI - Took her inusulin morning of admission Goal BSG [id number] Lumbar stenosis, back pain CTL-spine: Multilevel degenerative changes, L4-L5 with severe stenosis, stable compression fracture at L5 with 50% of height loss Patient reports that she has had progressive loss of strength in her right leg compared to her left, and has had loss of muscle bulk in that leg in the last several weeks MRIlumbar spine ordered. There is no saddle anesthesia. She does have some urge incontinence with UTI, bladder scan ordered [facility] consulted to evaluate in the morning CAD with history of PCI Troponin minimally elevated at 16 in the setting of pyelonephritis, minimal demandrepeat troponin ordered Will follow on M/T overnight and downgrade to MSO if stay EKG: Sinus first-degree AV block. No acute territorial ischemia. First- degree AV block was present on prior EKG 12/2023 Clinically without chest pain Continue metoprolol, lisinopril, Plavix, spironolactone, atorvastatin - No chest pain, no chest pressure DVT prophylaxis: Lovenox Disposition: MT Diet: HH/DM2 CODE STATUS: Full (2) Type 2 diabetes mellitus with insulin therapy: (3) Diabetic peripheral neuropathy associated with type 2 diabetes mellitus: History of Present Illness Primary Care Provider: Markus Castillo MD Sofia is an 83-year-old female with a history of CAD with PCI, type II DM, IBS, diabetic neuropathy, right-sided sciatica, hyperlipidemia, anxiety/depression presents to the ER with mild hydroureteronephrosis and inflammation of the right ureter. No obstructing stone is seen, suspicious passed stone and pyelonephritis. Lumbar CT no acute findings, prior compression fractures redemonstrated. Spinal stenosis is redemonstrated Has felt flushed and feverish last 2 days. 99*F at home. +back and flank pain +progressive weakness for many weeks but worsening strength compared to normal in the last week. has been told by her rn internal medicine she is losing muscle mass in the R leg No shortness of breath, no dyspnea. Does not normally use oxygen Continues to have 8/10 pain in her low back. This has progressively worsened and is particularly bad in the last week. She does feel globally weak and fatigued with her illness and fevers, but notes her weakness in the right leg is much worse than her left. She does endorse some neuropathy at baseline, but sensation is grossly in touch in her lower extremities bilaterally without asymmetry. Endorses some intermittent urinary incontinence and urgency in the last week. No saddle anesthesia Discussed plan of care with patient's daughter in law by phone as well. Notes that she has had general illness in the last week, and has looked unwell. Agree with plan of care as discussed including admission, antibiotics, and further evaluation of lumbar pain Medical History: Reviewed Medications: Reviewed Surgical History: Reviewed Family history: Reviewed Allergies: Reviewed. Cipro and dapsone Social History: No tobacco, no etoh Code Status: Full Allergies Allergy/AdvReac Type Severity Reaction Status Date / Time dapsone Allergy Intermediate Rash Verified 03/06/24 11:03 Sulfa (Sulfonamide Allergy Mild Unknown Verified 03/06/24 11:03 Antibiotics) latex Allergy Unknown Unknown Verified 03/06/24 11:03 ciprofloxacin AdvReac Intermediate "i blew up Verified 03/06/24 11:03 like a balloon" per pt adhesive AdvReac Unknown Unknown Verified 03/06/24 11:03 metronidazole [From Flagyl] AdvReac Unknown Unknown Verified 03/06/24 11:03 red dye AdvReac Unknown Unknown Verified 03/06/24 11:03 Home Medications Medication Instructions Recorded Confirmed Type multivit-iron 18 mg-folic acid 400 1 tab PO QAM 11/11/19 01/17/24 History mcg-calcium 500 mg-minerals tablet (Women's One Daily) OneTouch Verio Reflect Meter #1 ea 08/05/21 01/17/24 Rx (blood-glucose meter) OneTouch Delica Plus Lancet 33 #400 ea 07/28/22 01/17/24 Rx gauge (lancets) Lactobacil.acidophilus-Bifido.animalis 1 cap PO DAILY 08/17/22 01/17/24 History 5 billion cell sprinkle capsule (Probiotic) vit C 250 mg-vit E 90 mg-zinc 40 1 tab PO BID 08/17/22 01/17/24 History mg-copper 1 td-[id number] capsule (PreserVision AREDS-2) cranberry 400 mg capsule 400 mg PO DAILY 02/06/23 01/17/24 History atorvastatin 40 mg tablet (Lipitor) 40 mg PO HS #90 tabs 04/25/23 01/17/24 Rx clopidogrel 75 mg tablet (Plavix) 75 mg PO DAILY #30 tabs 04/25/23 01/17/24 Rx doxazosin 1 mg tablet 1 mg PO DAILY #30 tabs 04/25/23 01/17/24 Rx lisinopril 40 mg tablet 40 mg PO QAM #30 tabs 04/25/23 01/17/24 Rx metoprolol succinate 50 mg 50 mg PO QAM #90 tabs 04/25/23 01/17/24 Rx tablet,extended release 24 hr (Toprol XL) spironolactone 25 mg tablet 12.5 mg (1/2 x 25 mg) PO DAILY #45 04/25/23 01/17/24 Rx (Aldactone) tabs pen needle, diabetic 32 gauge x #400 ea 05/16/23 01/17/24 Rx 5/32" (BD Ultra-Fine Cris Pen Needle) vibegron 75 mg tablet (Gemtesa) 75 mg PO DAILY 05/17/23 01/17/24 History methenamine hippurate 1 gram tablet 1 g PO BID #30 tabs 07/06/23 01/17/24 Rx insulin glargine U-300 conc 300 40 unit subcut QAM 40 units 08/08/23 01/17/24 History unit/mL (1.5 mL) subcutaneous pen (Janny Dao U-300 Insulin) duloxetine 30 mg capsule,delayed 30 mg PO DAILY 90 days #90 caps 11/15/23 01/17/24 Rx release (Cymbalta) duloxetine 60 mg capsule,delayed 60 mg PO QAM 90 days #90 caps 11/15/23 01/17/24 Rx release diphenoxylate-atropine 2.5 1 tab PO DAILY diarrhea #90 tabs 11/20/23 01/17/24 Rx mg-0.025 mg tablet (Lomotil) acetaminophen 325 mg tablet See Rx Instructions PO Q6H PRN 12/21/23 01/17/24 History lidocaine 4 % topical patch 1 patch topical DAILY PRN 12/21/23 01/17/24 History ketoconazole 2 % topical cream 1 applic topical BID 2 weeks #30 01/17/24 01/17/24 Rx grams insulin lispro 100 unit/mL 5 - 10 unit (0.05 - 0.1 mL) subcut 02/04/24 Rx subcutaneous pen (Humalog KwikPen TID 90 days #15 mL (U-100) Insulin) OneTouch Verio test strips (blood #300 ea 03/19/24 Rx sugar diagnostic) Past Med/Surg History Problem List (Updated 03/22/24 @ 14:10 by Onofre Maynard MD) Pyelonephritis Right sided sciatica (Acute) Abdominal pain, lower (Acute) Tiredness Hypertension Dermatitis Low back pain Overactive bladder Hypomagnesemia (Acute) Lumbar contusion (Acute) Left leg weakness (Acute) Nonproliferative diabetic retinopathy Diabetic peripheral neuropathy Stented coronary artery Loss of protective sensation of skin of foot H/O: stroke with residual effects Type 2 diabetes mellitus with insulin therapy Albuminuria Recurrent UTI (urinary tract infection) Urine incontinence (Chronic) Age-related cognitive decline (Chronic) Diabetic peripheral neuropathy associated with type 2 diabetes mellitus (Acute) Gait disturbance (Acute) Hyperlipidemia (Acute) IBS (irritable bowel syndrome) (Acute) Nephrolithiasis (Acute) Neuropathic pain of both feet (Acute) Vitamin D deficiency disease (Acute) Medical History (Updated 03/22/24 @ 14:10 by Onofre Maynard MD) Stroke-like symptom Numbness of left hand Humerus fracture Balance problem Stroke Fall Abnormal thyroid blood test Localized swelling of both lower legs Hypoglycemia Lupus Closed left humeral fracture (07/22/23) from a fall Interstitial lung disease Diabetes mellitus type 2, uncontrolled CAD (coronary artery disease) Hypertension Contact dermatitis Chronic cough Rash Herpes zoster, ocular Contusion of leg, left Gross hematuria Physical deconditioning Expressive aphasia UTI (urinary tract infection) Chronic diarrhea Spinal stenosis of lumbar region Cerebrovascular disease Family history of dementia Neurogenic claudication due to lumbar spinal stenosis Arm DVT (deep venous thromboembolism), acute Mitral regurgitation Recurrent UTI Hx of renal calculi C. difficile colitis Surgical History History of lithotripsy S/P cardiac catheterization Hx of cholecystectomy Family History (Updated 03/06/24 @ 11:08 by BHARTI Schrader) Mother Alzheimer disease Hypertension Brother Diabetes Myocardial infarction Father Hypertension Sister Lung cancer Other Family history non-contributory Stroke Denies family history of Ovarian cancer Prostate cancer Breast cancer Colorectal cancer Social History Smoking Status: Never smoker Second Hand Exposure: No; Do You Dip or Chew Tobacco: No; Hx Alcohol Use: No Hx Substance Use: No Preferred Language: Citizen Of [place] Communication Ability: Effective Visual Impairment: No Limitations Hearing Ability: Normal Manager Economic Required: No Beliefs That Will Affect Care: None marital status: / Current Living Situation: Alone current occupational status: retired Feels Safe at Home: Yes Childhood Exposure to Second-Hand Smoke: No Dental Care, Regularly: No Physical Activity Frequency: Does not Exercise Seatbelt Use: always Sunscreen Use: No Assistive Devices: Walker Physical Exam Physical Exam: General: A&Ox3. NAD. Cooperative. HEENT: Atraumatic, normocephalic. Vision and hearing grossly intact Pulm: CTAB A&P. -wheezes, -rales, -rhonchi. Symmetrical chest rise. No increased work of breathing. No respiratory distress. On 2 L of nasal cannula, saturating at 100% Cardiac: RRR, -mrg. Radial pulses intact and symmetrical. Abdominal: Nontender, nondistended, soft. BS present. Extremities: Right hip flexion, ankle dorsiflexion/plantarflexion 4 -/5 compared to robust 5/5 on the left, some loss of muscle bulk of the right calf compared to the left. Hip flexion exam is somewhat limited by pain. Sensation of soft touch in lower extremities is symmetrical, although quality likely diminished at baseline with neuropathy per patient. PT pulses intact bilaterally. Results & Data Results & Data Vital Signs (Past 12 Hours) Vital Signs Temp Pulse Resp BP Pulse Ox O2 Del Method O2 Flow Rate 03/22/24 13:00 66 17 135/75 98 Nasal Cannula 3 03/22/24 12:30 62 17 185/96 H 99 Nasal Cannula 3 03/22/24 12:03 69 03/22/24 11:30 73 20 199/90 H 92 Room Air 03/22/24 11:00 66 20 205/89 H 92 Room Air 03/22/24 10:39 70 18 95 Room Air 03/22/24 10:31 36.7 C 70 18 212/95 H 95 Room Air PG Care Time/CCT Total # of Minutes Spent Total Time Spent with Patient: Total time spent is greater than 50% in coordination of care (as documented) at patient's floor/unit and/or counseling patient: Coding Level of Care Code 63654 INT INP/OBS CARE MIN Diagnoses Pyelonephritis N12 Type 2 diabetes mellitus with insulin therapy E11.9; Z79.4 Diabetic peripheral neuropathy associated with type 2 diabetes mellitus E11.42
[2024-03-22] MEDS: cefTRIAXone SODIUM 2,000 MG/50 ML BAG IV STA (14:09)
[2024-03-22] MEDS ORDERED: HYDROmorphone INJ 1 MG/ML SYRINGE IV PRN (14:35)
[2024-03-22] MEDS ORDERED: DEXTROSE 50% 50 ML SYRINGE IV PRN (14:35)
[2024-03-22] MEDS ORDERED: GLUCOSE 40% GEL 15 GM TUBE PO PRN (14:35)
[2024-03-22] MEDS ORDERED: HYDROmorphone INJ 0.5 MG/0.5 ML SYR IV PRN (14:35)
[2024-03-22] MEDS ORDERED: CARBOHYDRATES FOR HYPOGLYCEMIA PO PRN (14:35)
[2024-03-22] MEDS ORDERED: GLUCOSE 10 TAB/TUBE PO PRN (14:35)
[2024-03-22] MEDS ORDERED: GLUCAGON FOR INJ 1 MG VIAL SQ PRN (14:35)
[2024-03-22] MEDS ORDERED: PHARMACY GLYCEMIC MGMT CONSULT PRN (14:35)
[2024-03-22] MEDS ORDERED: ACETAMINOPHEN 325 MG TAB PO PRN ×2 (14:35→16:35)
[2024-03-22] MEDS: LIDOCAINE 5% 1 PATCH TD STA (15:32)
[2024-03-22] MEDS: DEXAMETHASONE SOD INJ 4 MG/ML VIAL IV STA (15:32)
[2024-03-22] MEDS: LANTUS PER UNIT CHARGE SQ SCH (15:56)
--- NOTE | 2024-03-22 16:47 | Pharmacy Report ---
Pharmacy Glycemic Short Note 2 - Date of Service March 22, 2024 - Glycemic Short BSG Results (Last 24 hours): 03/22/24 10:45 Glucose 135 H 03/22/24 16:42 POC Glucose 81 OUTPATIENT ANTIDIABETIC REGIMEN: * Toujeo (U-300 insulin glargine) 40 units SQ AM * Humalog 5-10 units SC with meals * A1c 9% 03/06/24 ASSESSMENT: * 83 yo F, admitted w/ pyelonephritis, on IV Ceftriaxone, stable compression fracture at L5, received Dexamethasone 10mg IV in ER, then 6mg IV daily. 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 BG 135mg/dl, and now 81mg/dl - will hold any further basal insulin at this time. Re-evaluate in AM. * Patient eating dinner, and then NPO after midnight. PLAN FOR INPATIENT GLYCEMIC CONTROL: * Hold outpatient diabetes medications * Basal insulin * determine in AM * Bolus insulin * NovoLog per scale ACHS or Q6hrs while NPO * Goal Range: Low 120 mg/dL - High 150 mg/dL * Correction Factor: 25 mg/dL/unit * Nutritional / Prandial insulin per carb ratio of 1 unit per 8 grams CHO consumed
[2024-03-22] MEDS: INSULIN ASPART PER UNIT CHARGE SC SCH ×2 (16:55→17:56)
[2024-03-22] MEDS ORDERED: Nursing to Pharmacy Communication SCH (17:00)
--- NOTE | 2024-03-22 17:54 | Magnetic Resonance Report ---
MR lumbar spine wo contrast CLINICAL HISTORY: Chronic low back pain TECHNIQUE: Sagittal and axial T1, T2 and STIR images were obtained. COMPARISON STUDY: MRI from 10/05/2019 FINDINGS: There is a chronic superior endplate L5 fracture with similar, approximately 50% loss of height. There are no acute fractures. L1-2: No disc protrusions or extrusions. No significant foraminal or spinal canal stenosis. L2-3: There is a small broad-based central disc protrusion with moderate spinal stenosis. There is facet joint arthropathy. Ligamentum flavum thickening. There is minimal bilateral foraminal narrowing L3-4: There is a mild circumferential disc bulge. There is facet joint and ligamentous thickening. Ligamentum flavum thickening. There is mild spinal stenosis. There is no significant foraminal narrowing L4-5: There is a grade 1 spondylolisthesis of L4 and L5. In addition there is minimal retropulsion of the superior margin of the fracture. There is a subacute superior endplate L5 compression fracture. There is severe spinal stenosis, which again measures approximately 2 mm in the AP diameter, with mass effect on the cauda equina nerve roots. There is mild bilateral foraminal narrowing. L5-S1: No disc protrusions or extrusions. No significant foraminal or spinal canal stenosis. The conus medullaris and cauda equina appear normal. Right renal pelvic dilation again seen. IMPRESSION: Findings are similar from the MRI on 10/05/2019. There is severe spinal canal stenosis focally at L4-5, related to a disc osteophyte complex, and a chronic superior endplate compression fracture deformity of L5. Multilevel degenerative changes, elsewhere are also similar to prior. Electronically signed by Elías Thomas 03-22-2024 5:54 PM
[2024-03-22] MEDS: HEPARIN SOD 5,000 UNIT/0.5 ML VIAL SQ SCH (21:42)
[2024-03-22] MEDS: ATORVASTATIN 40 MG TAB PO SCH (21:43)
[2024-03-23 06:18] LABS: Basophils # (auto) 0.02 K/uL (0.00-0.20); Basophils % (auto) 0.3 %; Hematocrit (blood only) 37.7 % (37.0-47.0); Hemoglobin 12.6 g/dl (12.0-16.0); Immature Granulocytes # (auto) 0.02 K/uL (0.01-0.20); Immature Granulocytes % (auto) 0.3 %; Lymphocytes # (auto) 0.93 K/uL (1.20-3.40); Mean Corpuscular Hemoglobin 30.2 pg (25.0-34.0); Mean Corpuscular Hgb Conc 33.4 g/dL (32.0-36.0); Mean Corpuscular Volume 90.4 fL (80.0-100.0); Mean Platelet Volume 10.1 fL (9.4-12.4); Monocytes # (auto) 0.17 K/uL (0.11-0.59); Monocytes % (auto) 2.4 %; Neutrophils # (auto) 6.04 K/uL (1.40-6.50); Platelet Count 288 K/uL (130-400); RDW Coefficient of Variation 12.4 % (11.5-14.5); RDW Standard Deviation 41.1 fL (36.4-46.3); Red Blood Count 4.17 M/uL (4.20-5.40); White Blood Count 7.18 K/ul (4.8-10.8)
[2024-03-23 06:32] LABS: BUN Creatinine Ratio 33.3 (10-20); Calcium 9.5 mg/dl (8.6-10.3); Creatinine Clr Calc Pharmacy 39.4 ml/min; Potassium 4.6 mmol/L (3.5-5.1)
--- NOTE | 2024-03-23 07:32 | Electrocardiogram Report ---
Test Reason : Blood Pressure : */* mmHG Vent. Rate : 69 BPM Atrial Rate : 69 BPM P-R Int : 214 ms QRS Dur : 90 ms QT Int : 416 ms P-R-T Axes : 45 0 61 degrees QTcB Int : 445 ms Sinus rhythm with 1st degree A-V block Otherwise normal ECG When compared with ECG of 19-Dec-2023 11:18, No significant change was found Confirmed by Elías Swan ([id number]) on 03/23/2024 7:32:29 AM Referred By: Confirmed By: Elías Swan
[2024-03-23] MEDS ORDERED: Nursing to Pharmacy Communication SCH (08:30)
[2024-03-23] MEDS: dexAMETHasone 6 MG in SYRINGE 0 ML IV SCH (08:36)
[2024-03-23] MEDS: DULoxetine HCL 30 MG CAP PO SCH (08:37)
[2024-03-23] MEDS: DULoxetine HCL 60 MG CAP PO SCH (08:37)
[2024-03-23] MEDS: lisinopril 40 MG TAB PO SCH (08:37)
[2024-03-23] MEDS: METOPROLOL SUCC 50MG EXT REL TAB PO SCH (08:37)
[2024-03-23] MEDS: VIBEGRON 75 MG TAB PO SCH (08:37)
[2024-03-23] MEDS: SPIRONOLACTONE 12.5 MG TAB PO SCH (08:38)
[2024-03-23] MEDS: CLOPIDOGREL BISULFATE 75 MG TAB PO SCH (08:38)
[2024-03-23] MEDS ORDERED: DEXAMETHASONE SOD INJ 4 MG/ML VIAL IV SCH (09:00)
[2024-03-23] MEDS: LANTUS PER UNIT CHARGE SC SCH ×2 (09:23→20:57)
--- NOTE | 2024-03-23 10:47 | Orthopedic Consultation ---
Date of Consultation March 23, 2024 Assessment & Plan (1) Spinal stenosis, lumbar region with neurogenic claudication: Assessment lumbar spinal stenosis with spondylolisthesis L4-L5. Plan MRI lumbar spine does demonstrate evidence of a healed L5 compression fracture with loss of height involving the superior endplate. There is anterolisthesis at the L4-5 level. There is severe central and subarticular stenosis at L4-L5. The other levels have normal age-related findings without gross neural compression. Plan at this point in lengthy discussion today with the patient reviewing her current status and treatment option. She is responding to steroids. I discussed possible surgical intervention which would require a decompression possible fusion L4-L5. She is going to consider options. Will continue with observation. It is reasonable to continue a course of steroids and have her follow-up in my office in the next few weeks. History of Present Illness Reason for Consultation: Leg pain and weakness Attending Physician: Onofre Maynard MD History of Present Illness This is a very pleasant 83-year-old female that presents to hospital yesterday with marked client status. She was noting significant right greater than left leg weakness numbness and difficulty with ambulating. This morning she is somewhat improved. She has undergone a course of IV Decadron. She states her pain is controlled at this time. She does note a fracture of L5 approximately 4 years ago that has been healed. She has been managing strength deficits of the right lower extremity with for several years. She has a history of a AFO that she does not wear at this time. She currently is in between assisted living and her permanent residence. Allergies Allergy/AdvReac Type Severity Reaction Status Date / Time dapsone Allergy Intermediate Rash Verified 03/06/24 11:03 Sulfa (Sulfonamide Allergy Mild Unknown Verified 03/06/24 11:03 Antibiotics) latex Allergy Unknown Unknown Verified 03/06/24 11:03 ciprofloxacin AdvReac Intermediate "i blew up Verified 03/06/24 11:03 like a balloon" per pt adhesive AdvReac Unknown Unknown Verified 03/06/24 11:03 metronidazole [From Flagyl] AdvReac Unknown Unknown Verified 03/06/24 11:03 red dye AdvReac Unknown Unknown Verified 03/06/24 11:03 Home Medications Medication Instructions Recorded Confirmed Type multivit-iron 18 mg-folic acid 400 1 tab PO QAM 11/11/19 03/22/24 History mcg-calcium 500 mg-minerals tablet (Women's One Daily) OneTouch Verio Reflect Meter #1 ea 08/05/21 01/17/24 Rx (blood-glucose meter) OneTouch Delica Plus Lancet 33 #400 ea 07/28/22 01/17/24 Rx gauge (lancets) Lactobacil.acidophilus-Bifido.animalis 1 cap PO DAILY 08/17/22 03/22/24 History 5 billion cell sprinkle capsule (Probiotic) vit C 250 mg-vit E 90 mg-zinc 40 1 tab PO BID 08/17/22 03/22/24 History mg-copper 1 nm-[id number] capsule (PreserVision AREDS-2) cranberry 400 mg capsule 400 mg PO DAILY 02/06/23 03/22/24 History atorvastatin 40 mg tablet (Lipitor) 40 mg PO HS #90 tabs 04/25/23 03/22/24 Rx clopidogrel 75 mg tablet (Plavix) 75 mg PO DAILY #30 tabs 04/25/23 03/22/24 Rx doxazosin 1 mg tablet 1 mg PO DAILY #30 tabs 04/25/23 03/22/24 Rx lisinopril 40 mg tablet 40 mg PO QAM #30 tabs 04/25/23 03/22/24 Rx metoprolol succinate 50 mg 50 mg PO QAM #90 tabs 04/25/23 03/22/24 Rx tablet,extended release 24 hr (Toprol XL) spironolactone 25 mg tablet 12.5 mg (1/2 x 25 mg) PO DAILY #45 04/25/23 03/22/24 Rx (Aldactone) tabs pen needle, diabetic 32 gauge x #400 ea 05/16/23 01/17/24 Rx 5/32" (BD Ultra-Fine Cris Pen Needle) vibegron 75 mg tablet (Gemtesa) 75 mg PO DAILY 05/17/23 03/22/24 History methenamine hippurate 1 gram tablet 1 g PO BID #30 tabs 07/06/23 03/22/24 Rx insulin glargine U-300 conc 300 40 unit subcut UD 08/08/23 03/22/24 History unit/mL (1.5 mL) subcutaneous pen (Janny Dao U-300 Insulin) duloxetine 30 mg capsule,delayed 30 mg PO DAILY 90 days #90 caps 11/15/23 03/22/24 Rx release (Cymbalta) diphenoxylate-atropine 2.5 1 tab PO DAILY diarrhea #90 tabs 11/20/23 03/22/24 Rx mg-0.025 mg tablet (Lomotil) acetaminophen 325 mg tablet 325 - 650 mg PO Q6H PRN Pain 12/21/23 03/22/24 History lidocaine 4 % topical patch 1 patch topical DAILY PRN Pain 12/21/23 03/22/24 History ketoconazole 2 % topical cream 1 applic topical BID 2 weeks #30 01/17/24 03/22/24 Rx grams OneTouch Verio test strips (blood #300 ea 03/19/24 Rx sugar diagnostic) duloxetine 60 mg capsule,delayed 60 mg PO UD 03/22/24 03/22/24 History release insulin lispro 100 unit/mL 5 - 10 unit subcut UD 03/22/24 03/22/24 History subcutaneous pen (Humalog KwikPen (U-100) Insulin) Patient History Medical History (Updated 03/23/24 @ 10:46 by Henrique Nance DO) Stroke-like symptom Numbness of left hand Humerus fracture Balance problem Stroke Fall Abnormal thyroid blood test Localized swelling of both lower legs Hypoglycemia Lupus Closed left humeral fracture (07/22/23) from a fall Interstitial lung disease Diabetes mellitus type 2, uncontrolled CAD (coronary artery disease) Hypertension Contact dermatitis Chronic cough Rash Herpes zoster, ocular Contusion of leg, left Gross hematuria Physical deconditioning Expressive aphasia UTI (urinary tract infection) Chronic diarrhea Spinal stenosis of lumbar region Cerebrovascular disease Family history of dementia Neurogenic claudication due to lumbar spinal stenosis Arm DVT (deep venous thromboembolism), acute Mitral regurgitation Recurrent UTI Hx of renal calculi C. difficile colitis Surgical History History of lithotripsy S/P cardiac catheterization Hx of cholecystectomy Family History (Updated 03/06/24 @ 11:08 by BHARTI Schrader) Mother Alzheimer disease Hypertension Brother Diabetes Myocardial infarction Father Hypertension Sister Lung cancer Other Family history non-contributory Stroke Denies family history of Ovarian cancer Prostate cancer Breast cancer Colorectal cancer Social History Smoking Status: Never smoker Second Hand Exposure: No; Do You Dip or Chew Tobacco: No; Hx Alcohol Use: No Hx Substance Use: No Preferred Language: [place] Communication Ability: Effective Visual Impairment: No Limitations Hearing Ability: Normal Ethnoarchaeologist Required: No Beliefs That Will Affect Care: None marital status: / Current Living Situation: Alone Current Living Situation Comment: recently moved out of assisted living to back home alone current occupational status: retired Feels Safe at Home: Yes Childhood Exposure to Second-Hand Smoke: No Dental Care, Regularly: No Physical Activity Frequency: Does not Exercise Seatbelt Use: always Sunscreen Use: No Assistive Devices: Walker and Wheelchair Physical Exam Physical Exam: On exam she is comfortable and pleasant. She has reasonable 4 5 bilateral plantarflexion dorsiflexion quadriceps. She has reasonable quadricep function bilaterally. Sensory is intact to cold and light touch. Results & Data Vital Signs (Past 12 Hours) Vital Signs Temp Pulse Pulse Resp BP Pulse Ox O2 Del Method 03/23/24 08:40 Room Air 03/23/24 08:08 36.8 C 71 18 125/71 92 Room Air 03/23/24 07:09 71 03/23/24 03:51 72 03/22/24 23:25 36.6 C 72 16 123/72 99 Nasal Cannula O2 Flow Rate 03/23/24 08:40 03/23/24 08:08 03/23/24 07:09 03/23/24 03:51 03/22/24 23:25 3
--- NOTE | 2024-03-23 12:33 | Discharge Summary ---
Discharge Summary Date of Service March 24, 2024 Principal Dx & Hospital Course #1 = Principal Diagnosis (1) Pyelonephritis: Sofia is an 83-year-old female with a history of CAD with PCI, type II DM, IBS, diabetic neuropathy, right-sided sciatica, hyperlipidemia, anxiety/depression presents to the ER with mild hydroureteronephrosis and inflammation of the right ureter. No obstructing stone is seen, suspicious passed stone and pyelonephritis. She is admitted for pyelonephritis. Additionally on admitting evaluation concern for loss of strength in the right leg with decrease in muscle bulk potentially reflective of critical lumbar stenosis with severe stenosis seen on CT. She is admitted with orthopedic spine consultation and MRI pending. Dexamethasone was started forpain and strength loss. To do as outpt: 1. Complete course of cefdinir for UTI 2. Complete course of steroids for low back pain/radiculopathy/lumbar stenosis. Followup with Dr. Nance as outpatient Pyelonephritis Mild leukocytosis UA is with 1+ leukocyte esterase and nitrites. UCx multiple colonites Transitioned to complete cefdinir course on discharge No obstruction seen on CT, findings are suspicious for recently passed stone. Lumbar stenosis, back pain CTL-spine: Multilevel degenerative changes, L4-L5 with severe stenosis, stable compression fracture at L5 with 50% of height loss Patient reports that she has had progressive loss of strength in her right leg compared to her left, and has had loss of muscle bulk in that leg in the last several weeks MRIlumbar spine with severe lumbar stenosis, L4-L5 with additional anterolisthesis. Patient responded extremely well to steroids overnight with improvement in strength and pain and was able to ambulate to the bathroom. Did discuss potential surgical options with orthopedics at this point does not require emergent surgical intervention, patient is comfortable with continuing a steroid course for now and having outpatient follow-up -Pt rec return home with HHS CAD with history of PCI Troponin minimally elevated at 16 in the setting of pyelonephritis, minimal demandrepeat troponin ordered EKG: Sinus first-degree AV block. No acute territorial ischemia. First- degree AV block was present on prior EKG 12/2023 Clinically without chest pain Continue metoprolol, lisinopril, Plavix, spironolactone, atorvastatin - No chest pain, no chest pressure (2) Type 2 diabetes mellitus with insulin therapy: (3) Diabetic peripheral neuropathy associated with type 2 diabetes mellitus: Admission HPI Per Admitting Provider Sofia is an 83-year-old female with a history of CAD with PCI, type II DM, IBS, diabetic neuropathy, right-sided sciatica, hyperlipidemia, anxiety/depression presents to the ER with mild hydroureteronephrosis and inflammation of the right ureter. No obstructing stone is seen, suspicious passed stone and pyelonephritis. Lumbar CT no acute findings, prior compression fractures red emonstrated. Spinal stenosis is redemonstrated Has felt flushed and feverish last 2 days. 99*F at home. +back and flank pain +progressive weakness for many weeks but worsening strength compared to normal in the last week. 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 Does not normally use oxygen Continues to have 8/10 pain in her low back. This has progressively worsened and is particularly bad in the last week. She does feel globally weak and fatigued with her illness and fevers, but notes her weakness in the right leg is much worse than her left. She does endorse some neuropathy at baseline, but sensation is grossly in touch in her lower extremities bilaterally without asymmetry. Endorses some intermittent urinary incontinence and urgency in the last week. No saddle anesthesia Discussed plan of care with patient's daughter in law by phone as well. Notes that she has had general illness in the last week, and has looked unwell. Agree with plan of care as discussed including admission, antibiotics, and further evaluation of lumbar pain Medical History: Reviewed Medications: Reviewed Surgical History: Reviewed Family history: Reviewed Allergies: Reviewed. Cipro and dapsone Social History: No tobacco, no etoh Code Status: Full Discharge Exam General: A&Ox3. NAD. Cooperative. HEENT: Atraumatic, normocephalic. Pulm: CTAB A&P. -wheezes, -rales, -rhonchi. Symmetrical chest rise. No increased work of breathing. No respiratory distress. Cardiac: RRR, -mrg. Radial pulses intact and symmetrical. Abdominal: Nontender, nondistended, soft. BS present. Extremities: Sensation of soft touch is slightly diminished in the lower extremities bilaterally but grossly intact and symmetrical. Greatly improved strength to hip flexion and ankle dorsi/plantarflexion in the right leg at bedside today although is still slightly diminished compared to the left. Patient was able to ambulate to the bathroom Discharge Plan Discharge Items Patient Disposition: Home - Home Health Services Reason For Visit: PYELO, LUMBAR STENOSIS W/ R WEAKNESS Discharge Diagnosis: Pyelonephritis, lumbar stenosis Activity: Resume your previous activity Non-emergency contact: Primary Care Provider Call non-emergency contact if: you have any medication questions, your symptoms worsen and your pain is not controlled Follow-up/Referrals: Markus Castillo MD [Primary Care Provider] - Diet: Heart Healthy Addtl Attending Provider Instructions: You are seen in the hospital for a UTI and for pain/weakness from lumbar stenosis. You have been prescribed a course of an antibiotic, cefdinir as noted below. You have been prescribed a course of dexamethasone, a steroid to help with your back pain and lumbar stenosis. He responded well to this during admission. Your case was reviewed with you with spine surgery and you will outpatient follow-up. If you have any worsening or concerning symptoms, worsening weakness, or difficulty urinating please seek immediate medical reattention If you develop any new or worsening symptoms including fever, chills, sweats, chest pain, chest pressure, difficulty breathing, uncontrolled nausea/vomiting, rash, wheezing, passing out or nearly passing out, bleeding, black/bloody bowel movements, or other new or concerning symptoms please call your primary care physician, or call 911 for re-evaluation in the emergency department if you are very concerned. Pending Studies at Discharge: No Stand-Alone Forms: [facility] Tech Cocktail, Smoking Cessation Medications and DC Order Prescriptions: New cefdinir 300 mg capsule 300 mg PO BID 3 Days Qty: 6 0RF dexamethasone 6 mg tablet 6 mg PO DAILY Qty: 8 0RF Continued (DME) blood-glucose meter [OneTouch Verio Reflect Meter] Mis See Rx Instructions .Route Qty: 1 0RF Rx Instructions: As directed (DME) lancets [OneTouch Delica Plus Lancet] 33 gauge misc See Rx Instructions .ROUTE .MEDSUPPLY Qty: 400 3RF Rx Instructions: use to test 4 times daily (DME) pen needle, diabetic [BD Ultra-Fine Cris Pen Needle] 32 gauge x 5/32" needle See Rx Instructions .ROUTE .MEDSUPPLY Qty: 400 3RF Rx Instructions: use 4 per day with insulin injections methenamine hippurate 1 gram tablet 1 g PO BID Qty: 30 0RF Rx Instructions: last filled 01/28/24 90 day supply duloxetine [Cymbalta] 30 mg capsule,delayed release(DR/EC) 30 mg PO DAILY 90 Days Qty: 90 3RF Rx Instructions: last filled 01/28/24 90 day supply take with the 60 mg cap, for total dose of 90 mg per day diphenoxylate-atropine [Lomotil] 2.5-0.025 mg tablet 1 tab PO DAILY Qty: 90 3RF Rx Instructions: last filled 12/08/23 90 day supply acetaminophen 325 mg tablet 325 - 650 mg PO Q6H PRN (Reason: Pain) Rx Instructions: otc unable to verify 325mg 1 -2 tabs orally every 6 hours PRN; lidocaine 4 % adhesive patch,medicated 1 patch topical DAILY PRN (Reason: Pain) Rx Instructions: otc unable to verify (DME) OneTouch Verio test strips Strip See Rx Instructions .ROUTE .MEDSUPPLY Qty: 300 3RF Rx Instructions: test 3 times daily Gemtesa 75 mg tablet 75 mg PO DAILY Rx Instructions: last filled 01/29/24 90 day supply ketoconazole 2 % cream 1 applic topical BID 14 Days Qty: 30 1RF Rx Instructions: filled 03/12 30 day supply insulin glargine U-300 conc [Toujeo SoloStar U-300 Insulin] 300 unit/mL (1.5 mL) insulin pen 40 unit SUBCUT UD Rx Instructions: 40 units subcut qam; last filled in January 2024 for 9 pens for 90 day supply. No units listed on pharmacy directions per the passenger representative. Women's One Daily 18 mg iron-400 mcg-500 mg Ca Tablet 1 tab PO QAM Rx Instructions: otc unable to verify Probiotic 5 billion cell Capsule, Sprinkle 1 cap PO DAILY Rx Instructions: otc unable to verify PreserVision AREDS-2 250-90-40-1 mg Capsule 1 tab PO BID Rx Instructions: otc unable to verify cranberry 400 mg Capsule 400 mg PO DAILY Rx Instructions: otc unable to verify administer with a meal duloxetine 60 mg capsule,delayed release(DR/EC) 60 mg PO UD Rx Instructions: last filled 07/01/23 90 day supply per rep. 60 mg po qam; take with the 30 mg cap, for total dose of 90 mg per day insulin lispro [Humalog KwikPen Insulin] 100 unit/mL insulin pen 5 - 10 unit subcut UD Rx Instructions: original 5-10 units. Last filled February 2024, filled 30 pens. No units listed on pharmacy directions atorvastatin [Lipitor] 40 mg tablet 40 mg PO HS Qty: 90 3RF Rx Instructions: filled 01/28/24 90 day supply metoprolol succinate [Toprol XL] 50 mg tablet extended release 24 hr 50 mg PO QAM Qty: 90 3RF Rx Instructions: filled 03/06/23 90 day supply spironolactone [Aldactone] 25 mg tablet 12.5 mg PO DAILY Qty: 45 3RF Rx Instructions: last filled 01/28/24 90 day supply lisinopril 40 mg tablet 40 mg PO QAM Qty: 30 3RF Rx Instructions: last filled 01/28/24 90 day supply doxazosin 1 mg tablet 1 mg PO DAILY Qty: 30 2RF Rx Instructions: last filled 01/28/24 90 day supply clopidogrel [Plavix] 75 mg tablet 75 mg PO DAILY Qty: 30 3RF Rx Instructions: last filled 01/28/24 90 day supply Discharge Orders: Discharge Order (Routine); Ordered 03/24/24 Ordered By: Onofre Maynard Admission Data Admit Date/Time: 03/22/24 15:06 Attending Provider: Onofre Maynard Admit Provider: Onofre Maynard Primary Care Provider: Markus Castillo V. Other Providers: Henrique Nance [facility] Hospital Stay Data Consultations 03/23/24 09:00 Consult Orthopedic Spine Surgery Routine Diagnostic Imagining Performed 03/22/24 11:15 CT Abd and Pelvis [CT abd pelvis wo con] Stat CT lumbar spine wo con Stat 03/22/24 14:38 MRI Lumbar Spine [MR lumbar spine wo con] Stat Discharge Instructions Given to Patient (Per Discharging Provider) You are seen in the hospital for a UTI and for pain/weakness from lumbar stenosis. You have been prescribed a course of an antibiotic, cefdinir as noted below. You have been prescribed a course of dexamethasone, a steroid to help with your back pain and lumbar stenosis. He responded well to this during admission. Your case was reviewed with you with spine surgery and you will outpatient follow-up. If you have any worsening or concerning symptoms, worsening weakness, or difficulty urinating please seek immediate medical reattention If you develop any new or worsening symptoms including fever, chills, sweats, chest pain, chest pressure, difficulty breathing, uncontrolled nausea/vomiting, rash, wheezing, passing out or nearly passing out, bleeding, black/bloody bowel movements, or other new or concerning symptoms please call your primary care physician, or call 911 for re-evaluation in the emergency department if you are very concerned. Total Time Total Time Spent Total Time Spent (In Minutes): Time spend day of discharge 35 minutes including direct patient care, documentation, review of labs and images, and coordination of care. Coding Level of Care Code 63145 INP/OBS DISCH >30 MIN Diagnoses Pyelonephritis N12 Type 2 diabetes mellitus with insulin therapy E11.9; Z79.4 Diabetic peripheral neuropathy associated with type 2 diabetes mellitus E11.42
[2024-03-23] MEDS: INSULIN ASPART PER UNIT CHARGE SC SCH (12:46)
[2024-03-23] MEDS: cefTRIAXone SODIUM 2,000 MG/50 ML BAG IV SCH (13:37)
--- NOTE | 2024-03-23 16:24 | Hospitalist Progress Note ---
Date of Service March 23, 2024 Assessment & Plan (1) Pyelonephritis: Plan: Sofia is an 83-year-old female with a history of CAD with PCI, type II DM, IBS, diabetic neuropathy, right-sided sciatica, hyperlipidemia, anxiety/depression presents to the ER with mild hydroureteronephrosis and inflammation of the right ureter. No obstructing stone is seen, suspicious passed stone and pyelonephritis. She is admitted for pyelonephritis. Additionally on admitting evaluation concern for loss of strength in the right leg with decrease in muscle bulk potentially reflective of critical lumbar stenosis with severe stenosis seen on CT. She is admitted with orthopedic spine consultation and MRI pending. Dexamethasone was started for pain and strength loss. Pyelonephritis Mild leukocytosis UA is with 1+ leukocyte esterase and nitrites. UCx pending Continue Rocephin No obstruction seen on CT, findings are suspicious for recently passed stone Type II DM Continue insulin glargine 40 units a.m., SSI - Took her inusulin morning of admission Goal BSG 214851 Lumbar stenosis, back pain CTL-spine: Multilevel degenerative changes, L4-L5 with severe stenosis, stable compression fracture at L5 with 50% of height loss Patient reports that she has had progressive loss of strength in her right leg compared to her left, and has had loss of muscle bulk in that leg in the last several weeks MRIlumbar spine with severe lumbar stenosis, L4-L5 with additional anterolisthesis. Patient responded extremely well to steroids overnight with improvement in strength and pain and was able to ambulate to the bathroom. Did discuss potential surgical options with orthopedics at this point does not require emergent surgical intervention, patient is comfortable with continuing a steroid course for now and having outpatient follow-up PT/OT is pending and transport limited by inclement weather CAD with history of PCI Troponin minimally elevated at 16 in the setting of pyelonephritis, minimal demandrepeat troponin ordered Will follow on M/T overnight and downgrade to MSO if stay EKG: Sinus first-degree AV block. No acute territorial ischemia. First- degree AV block was present on prior EKG 12/2023 Clinically without chest pain Continue metoprolol, lisinopril, Plavix, spironolactone, atorvastatin - No chest pain, no chest pressure DVT prophylaxis: Lovenox Disposition: MT Diet: HH/DM2 CODE STATUS: Full (2) Type 2 diabetes mellitus with insulin therapy: (3) Diabetic peripheral neuropathy associated with type 2 diabetes mellitus: Admission and Anticipated Discharge Date Admission Date: March 22, 2024 Subjective Feels improved. Back pain greatly improved on steroids.No fever chills or sweats overnight. Was able to ambulate to the bathroom with assistance Physical Exam Physical Exam: General: A&Ox3. NAD. Cooperative. HEENT: Atraumatic, normocephalic. Pulm: CTAB A&P. -wheezes, -rales, -rhonchi. Symmetrical chest rise. No increased work of breathing. No respiratory distress. Cardiac: RRR, -mrg. Radial pulses intact and symmetrical. Abdominal: Nontender, nondistended, soft. BS present. Extremities: Sensation of soft touch is slightly diminished in the lower extremities bilaterally but grossly intact and symmetrical. Greatly improved strength to hip flexion and ankle dorsi/plantarflexion in the right leg at bedside today although is still slightly diminished compared to the left. Patient was able to ambulate to the bathroom Results & Data Results & Data Vital Signs (Past 12 Hours) Vital Signs Temp Pulse Pulse Resp BP Pulse Ox O2 Del Method 03/23/24 14:51 85 03/23/24 12:22 36.4 C L 73 16 159/75 H 91 Room Air 03/23/24 08:40 Room Air 03/23/24 08:08 36.8 C 71 18 125/71 92 Room Air 03/23/24 07:09 71 PG Care Time/CCT Total # of Minutes Spent Total Time Spent with Patient: Total time spent is greater than 50% in coordination of care (as documented) at patient's floor/unit and/or counseling patient: Coding Level of Care Code 27438 SUB INP/OBS CARE 3/50MIN Diagnoses Pyelonephritis N12 Type 2 diabetes mellitus with insulin therapy E11.9; Z79.4 Diabetic peripheral neuropathy associated with type 2 diabetes mellitus E11.42
[2024-03-24] MEDS: INSULIN ASPART PER UNIT CHARGE SC SCH (00:30)
[2024-03-24] MEDS: LANTUS PER UNIT CHARGE SC SCH (09:25)
[2024-03-24 09:47] LABS: Basophils # (auto) 0.02 K/uL (0.00-0.20); Basophils % (auto) 0.2 %; Hematocrit (blood only) 37.4 % (37.0-47.0); Hemoglobin 12.2 g/dl (12.0-16.0); Immature Granulocytes # (auto) 0.07 K/uL (0.01-0.20); Immature Granulocytes % (auto) 0.6 %; Lymphocytes # (auto) 2.21 K/uL (1.20-3.40); Lymphocytes % (auto) 17.4 %; Mean Corpuscular Hemoglobin 29.1 pg (25.0-34.0); Mean Corpuscular Hgb Conc 32.6 g/dL (32.0-36.0); Mean Corpuscular Volume 89.3 fL (80.0-100.0); Mean Platelet Volume 9.9 fL (9.4-12.4); Monocytes # (auto) 0.89 K/uL (0.11-0.59); Neutrophils # (auto) 9.51 K/uL (1.40-6.50); Neutrophils % (auto) 74.8 %; Platelet Count 319 K/uL (130-400); RDW Coefficient of Variation 12.4 % (11.5-14.5); RDW Standard Deviation 40.4 fL (36.4-46.3); Red Blood Count 4.19 M/uL (4.20-5.40)
[2024-03-24 10:12] LABS: Calcium 9.6 mg/dl (8.6-10.3); Creatinine Clr Calc Pharmacy 34.7 ml/min; Potassium 4.4 mmol/L (3.5-5.1)
[2024-03-24 12:06] VITALS: BP 166/84; PULSE 60; RESP 18; TEMP 97.7; O2SAT 93
--- NOTE | 2024-03-24 12:13 | Discharge Summary ---
Discharge Summary Date of Service March 24, 2024 Principal Dx & Hospital Course #1 = Principal Diagnosis (1) Pyelonephritis: Sofia is an 83-year-old female with a history of CAD with PCI, type II DM, IBS, diabetic neuropathy, right-sided sciatica, hyperlipidemia, anxiety/depression presents to the ER with mild hydroureteronephrosis and inflammation of the right ureter. No obstructing stone is seen, suspicious passed stone and pyelonephritis. She is admitted for pyelonephritis. Additionally on admitting evaluation concern for loss of strength in the right leg with decrease in muscle bulk potentially reflective of critical lumbar stenosis with severe stenosis seen on CT. She is admitted with orthopedic spine consultation and MRI pending. Dexamethasone was started forpain and strength loss. To do as outpt: 1. Complete course of cefdinir for UTI 2. Complete course of steroids for low back pain/radiculopathy/lumbar stenosis. Followup with Dr. Nance as outpatient Pyelonephritis Mild leukocytosis UA is with 1+ leukocyte esterase and nitrites. UCx multiple colonites Transitioned to complete cefdinir course on discharge No obstruction seen on CT, findings are suspicious for recently passed stone. Lumbar stenosis, back pain CTL-spine: Multilevel degenerative changes, L4-L5 with severe stenosis, stable compression fracture at L5 with 50% of height loss Patient reports that she has had progressive loss of strength in her right leg compared to her left, and has had loss of muscle bulk in that leg in the last several weeks MRIlumbar spine with severe lumbar stenosis, L4-L5 with additional anterolisthesis. Patient responded extremely well to steroids overnight with improvement in strength and pain and was able to ambulate to the bathroom. Did discuss potential surgical options with orthopedics at this point does not require emergent surgical intervention, patient is comfortable with continuing a steroid course for now and having outpatient follow-up -Pt rec return home with HHS CAD with history of PCI Troponin minimally elevated at 16 in the setting of pyelonephritis, minimal demandrepeat troponin ordered EKG: Sinus first-degree AV block. No acute territorial ischemia. First- degree AV block was present on prior EKG 12/2023 Clinically without chest pain Continue metoprolol, lisinopril, Plavix, spironolactone, atorvastatin - No chest pain, no chest pressure (2) Type 2 diabetes mellitus with insulin therapy: (3) Diabetic peripheral neuropathy associated with type 2 diabetes mellitus: Admission HPI Per Admitting Provider Sofia is an 83-year-old female with a history of CAD with PCI, type II DM, IBS, diabetic neuropathy, right-sided sciatica, hyperlipidemia, anxiety/depression presents to the ER with mild hydroureteronephrosis and inflammation of the right ureter. No obstructing stone is seen, suspicious passed stone and pyelonephritis. Lumbar CT no acute findings, prior compression fractures red emonstrated. Spinal stenosis is redemonstrated Has felt flushed and feverish last 2 days. 99*F at home. +back and flank pain +progressive weakness for many weeks but worsening strength compared to normal in the last week. has been told by her jelly maker she is losing muscle mass in the R leg No shortness of breath, no dyspnea. Does not normally use oxygen Continues to have 8/10 pain in her low back. This has progressively worsened and is particularly bad in the last week. She does feel globally weak and fatigued with her illness and fevers, but notes her weakness in the right leg is much worse than her left. She does endorse some neuropathy at baseline, but sensation is grossly in touch in her lower extremities bilaterally without asymmetry. Endorses some intermittent urinary incontinence and urgency in the last week. No saddle anesthesia Discussed plan of care with patient's daughter in law by phone as well. Notes that she has had general illness in the last week, and has looked unwell. Agree with plan of care as discussed including admission, antibiotics, and further evaluation of lumbar pain Medical History: Reviewed Medications: Reviewed Surgical History: Reviewed Family history: Reviewed Allergies: Reviewed. Cipro and dapsone Social History: No tobacco, no etoh Code Status: Full Discharge Plan Discharge Items Patient Disposition: Home - Home Health Services Reason For Visit: PYELO, LUMBAR STENOSIS W/ R WEAKNESS Discharge Diagnosis: Pyelonephritis, lumbar stenosis Activity: Resume your previous activity Non-emergency contact: Primary Care Provider Call non-emergency contact if: you have any medication questions, your symptoms worsen and your pain is not controlled Follow-up/Referrals: Markus Castillo MD [Primary Care Provider] - 04/01/24 1:30 pm Diet: Heart Healthy Addtl Attending Provider Instructions: You are seen in the hospital for a UTI and for pain/weakness from lumbar stenosis. You have been prescribed a course of an antibiotic, cefdinir as noted below. You have been prescribed a course of dexamethasone, a steroid to help with your back pain and lumbar stenosis. He responded well to this during admission. Your case was reviewed with you with spine surgery and you will outpatient follow-up. If you have any worsening or concerning symptoms, worsening weakness, or difficulty urinating please seek immediate medical reattention If you develop any new or worsening symptoms including fever, chills, sweats, chest pain, chest pressure, difficulty breathing, uncontrolled nausea/vomiting, rash, wheezing, passing out or nearly passing out, bleeding, black/bloody bowel movements, or other new or concerning symptoms please call your primary care physician, or call 911 for re-evaluation in the emergency department if you are very concerned. Pending Studies at Discharge: No Stand-Alone Forms: My [facility]ALK, Smoking Cessation Medications and DC Order Prescriptions: New cefdinir 300 mg capsule 300 mg PO BID 3 Days Qty: 6 0RF dexamethasone 6 mg tablet 6 mg PO DAILY Qty: 8 0RF Continued (DME) blood-glucose meter [OneTouch Verio Reflect Meter] Misc See Rx Instructions .Route Qty: 1 0RF Rx Instructions: As directed (DME) lancets [OneTouch Delica Plus Lancet] 33 gauge misc See Rx Instructions .ROUTE .MEDSUPPLY Qty: 400 3RF Rx Instructions: use to test 4 times daily (DME) pen needle, diabetic [BD Ultra-Fine Cris Pen Needle] 32 gauge x 5/32" needle See Rx Instructions .ROUTE .MEDSUPPLY Qty: 400 3RF Rx Instructions: use 4 per day with insulin injections methenamine hippurate 1 gram tablet 1 g PO BID Qty: 30 0RF Rx Instructions: last filled 01/28/24 90 day supply duloxetine [Cymbalta] 30 mg capsule,delayed release(DR/EC) 30 mg PO DAILY 90 Days Qty: 90 3RF Rx Instructions: last filled 01/28/24 90 day supply take with the 60 mg cap, for total dose of 90 mg per day diphenoxylate-atropine [Lomotil] 2.5-0.025 mg tablet 1 tab PO DAILY Qty: 90 3RF Rx Instructions: last filled 12/08/23 90 day supply acetaminophen 325 mg tablet 325 - 650 mg PO Q6H PRN (Reason: Pain) Rx Instructions: otc unable to verify 325mg 1 -2 tabs orally every 6 hours PRN; lidocaine 4 % adhesive patch,medicated 1 patch topical DAILY PRN (Reason: Pain) Rx Instructions: otc unable to verify (DME) OneTouch Verio test strips Strip See Rx Instructions .ROUTE .MEDSUPPLY Qty: 300 3RF Rx Instructions: test 3 times daily Gemtesa 75 mg tablet 75 mg PO DAILY Rx Instructions: last filled 01/29/24 90 day supply ketoconazole 2 % cream 1 applic topical BID 14 Days Qty: 30 1RF Rx Instructions: filled 03/12 30 day supply insulin glargine U-300 conc [Toujeo SoloStar U-300 Insulin] 300 unit/mL (1.5 mL) insulin pen 40 unit SUBCUT UD Rx Instructions: 40 units subcut qam; last filled in January 2024 for 9 pens for 90 day supply. No units listed on pharmacy directions per the new accounts banking representative. Women's One Daily 18 mg iron-400 mcg-500 mg Ca Tablet 1 tab PO QAM Rx Instructions: otc unable to verify Probiotic 5 billion cell Capsule, Sprinkle 1 cap PO DAILY Rx Instructions: otc unable to verify PreserVision AREDS-2 250-90-40-1 mg Capsule 1 tab PO BID Rx Instructions: otc unable to verify cranberry 400 mg Capsule 400 mg PO DAILY Rx Instructions: otc unable to verify administer with a meal duloxetine 60 mg capsule,delayed release(DR/EC) 60 mg PO UD Rx Instructions: last filled 07/01/23 90 day supply per rep. 60 mg po qam; take with the 30 mg cap, for total dose of 90 mg per day insulin lispro [Humalog KwikPen Insulin] 100 unit/mL insulin pen 5 - 10 unit subcut UD Rx Instructions: original 5-10 units. Last filled February 2024, filled 30 pens. No units listed on pharmacy directions atorvastatin [Lipitor] 40 mg tablet 40 mg PO HS Qty: 90 3RF Rx Instructions: filled 01/28/24 90 day supply metoprolol succinate [Toprol XL] 50 mg tablet extended release 24 hr 50 mg PO QAM Qty: 90 3RF Rx Instructions: filled 03/06/23 90 day supply spironolactone [Aldactone] 25 mg tablet 12.5 mg PO DAILY Qty: 45 3RF Rx Instructions: last filled 01/28/24 90 day supply lisinopril 40 mg tablet 40 mg PO QAM Qty: 30 3RF Rx Instructions: last filled 01/28/24 90 day supply doxazosin 1 mg tablet 1 mg PO DAILY Qty: 30 2RF Rx Instructions: last filled 01/28/24 90 day supply clopidogrel [Plavix] 75 mg tablet 75 mg PO DAILY Qty: 30 3RF Rx Instructions: last filled 01/28/24 90 day supply Discharge Orders: Discharge Order (Routine); Ordered 03/24/24 Ordered By: Onofre Maynard Admission Data Admit Date/Time: 03/22/24 15:06 Attending Provider: Onofre Maynard Admit Provider: Onofre Maynard Primary Care Provider: Markus Castillo V. Other Providers: Henrique Nance Home [facility] Hospital Stay Data Consultations 03/23/24 09:00 Consult Orthopedic Spine Surgery Routine Diagnostic Imagining Performed 03/22/24 11:15 CT Abd and Pelvis [CT abd pelvis wo con] Stat CT lumbar spine wo con Stat 03/22/24 14:38 MRI Lumbar Spine [MR lumbar spine wo con] Stat Pending Results Patient Have Any Pending Studies at Discharge: No Discharge Instructions Given to Patient (Per Discharging Provider) You are seen in the hospital for a UTI and for pain/weakness from lumbar stenosis. You have been prescribed a course of an antibiotic, cefdinir as noted below. You have been prescribed a course of dexamethasone, a steroid to help with your back pain and lumbar stenosis. He responded well to this during admission. Your case was reviewed with you with spine surgery and you will outpatient follow-up. If you have any worsening or concerning symptoms, worsening weakness, or difficulty urinating please seek immediate medical reattention If you develop any new or worsening symptoms including fever, chills, sweats, chest pain, chest pressure, difficulty breathing, uncontrolled nausea/vomiting, rash, wheezing, passing out or nearly passing out, bleeding, black/bloody bowel movements, or other new or concerning symptoms please call your primary care physician, or call 911 for re-evaluation in the emergency department if you are very concerned. Coding Diagnoses Pyelonephritis N12 Type 2 diabetes mellitus with insulin therapy E11.9; Z79.4 Diabetic peripheral neuropathy associated with type 2 diabetes mellitus E11.42
--- NOTE | 2024-03-24 13:43 | Pharmacy Report ---
Pharmacy Glycemic Short Note 2 - Date of Service March 24, 2024 - Glycemic Short BSG Results (Last 24 hours): 03/23/24 03/23/24 03/23/24 17:17 17:19 20:08 Glucose POC Glucose 347 H* 296 H 260 H 03/24/24 03/24/24 03/24/24 00:22 04:26 08:11 Glucose POC Glucose 138 H 120 H 129 H 03/24/24 03/24/24 09:25 12:24 Glucose 154 H POC Glucose 231 H OUTPATIENT ANTIDIABETIC REGIMEN: * Toujeo (U-300 insulin glargine) 40 units SQ AM * Humalog 5-10 units SC with meals * A1c 9% 03/06/24 ASSESSMENT: 03/24/24: * Blood sugars elevated yesterday, likely due to IV dexamethasone * Novolog parameters tightened yesterday in response to hyperglycemia * Fasting blood sugar much improved - will reduce Lantus to ~0.4 unit/kg/day 03/22/24: * 83 yo F, admitted w/ pyelonephritis, on IV Ceftriaxone, stable compression fracture at L5, received Dexamethasone 10mg IV in ER, then 6mg IV daily. * Patient took Toujeo 40 units UNDERWRITING SERVICE REPRESENTATIVE this morning. BG 135mg/dl, and now 81mg/dl - will hold any further basal insulin at this time. Re-evaluate in AM. * Patient eating dinner, and then NPO after midnight. PLAN FOR INPATIENT GLYCEMIC CONTROL: * Hold outpatient insulin regimen * Basal insulin * Lantus 30 units SC daily with IV dexamethasone * Bolus insulin * NovoLog per scale ACHS or Q6hrs while NPO * Goal Range: Low 110 mg/dL - High 140 mg/dL * Correction Factor: 20 mg/dL/unit * Nutritional / Prandial insulin per carb ratio of 1 unit per 5 grams CHO consumed
== END 2024-03-24 17:10 | disposition home health service (06) | DRG 690 ==
LOC: ED 10:31 → 2N 15:06

== ENCOUNTER 2024-04-16 10:05 | Inpatient (IN) ==
[2024-04-16] MEDS: SODIUM CHLORIDE 0.9% 1,000 ML IV SCH (12:33)
--- NOTE | 2024-04-16 12:47 | Emergency Department Note ---
History of Present Illness General Chief complaint: Weakness Stated complaint: WEAKNESS, UNABLE TO AMBULATE, AB PAIN, DIARRHEA Time Seen by Provider: 04/16/24 10:28 Source: patient Mode of arrival: EMS Limitations: physical limitation History of Present Illness Patient is an 83-year-old female with history of hypertension, IBS, type 2 diabetes with insulin dependence, chronic neuropathy who presents for generalized weakness and loose stools. She says she started to develop diarrhea last night. She states every time she gets up she has a loose bowel movement. Describes loose brown stool. No melena or hematochezia reported. She has had similar presentations in the past related to her IBS. Caregiver stated that she needed help to get out of the shower this morning and was unable to get around on her own when she is normally very independent. Patient has not been on any antibiotics within the last month. No recent international travel or hospitalization. She does complain of some nonspecific lower abdominal pain. Described as cramping that comes and goes. No urinary symptoms reported. Home Medications Medication Instructions Recorded Confirmed Type multivit-iron 18 mg-folic acid 400 1 tab PO QAM 11/11/19 04/16/24 History mcg-calcium 500 mg-minerals tablet (Women's One Daily) OneTouch Verio Reflect Meter #1 ea 08/05/21 04/01/24 Rx (blood-glucose meter) OneTouch Delica Plus Lancet 33 #400 ea 07/28/22 04/01/24 Rx gauge (lancets) vit C 250 mg-vit E 90 mg-zinc 40 1 tab PO BID 08/17/22 04/16/24 History mg-copper 1 [id number] capsule (PreserVision AREDS-2) atorvastatin 40 mg tablet (Lipitor) 40 mg PO HS #90 tabs 04/25/23 04/16/24 Rx clopidogrel 75 mg tablet (Plavix) 75 mg PO DAILY #30 tabs 04/25/23 04/16/24 Rx doxazosin 1 mg tablet 1 mg PO DAILY #30 tabs 04/25/23 04/16/24 Rx lisinopril 40 mg tablet 40 mg PO QAM #30 tabs 04/25/23 04/16/24 Rx metoprolol succinate 50 mg 50 mg PO QAM #90 tabs 04/25/23 04/16/24 Rx tablet,extended release 24 hr (Toprol XL) spironolactone 25 mg tablet 12.5 mg (1/2 x 25 mg) PO DAILY #45 04/25/23 04/16/24 Rx (Aldactone) tabs pen needle, diabetic 32 gauge x #400 ea 05/16/23 04/01/24 Rx 5/32" (BD Ultra-Fine Cris Pen Needle) vibegron 75 mg tablet (Gemtesa) 75 mg PO DAILY 05/17/23 04/16/24 History methenamine hippurate 1 gram tablet 1 g PO BID #30 tabs 07/06/23 04/16/24 Rx insulin glargine U-300 conc 300 40 unit subcut UD 08/08/23 04/16/24 History unit/mL (1.5 mL) subcutaneous pen (Toujeo SoloStar U-300 Insulin) diphenoxylate-atropine 2.5 1 tab PO DAILY diarrhea #90 tabs 11/20/23 04/16/24 Rx mg-0.025 mg tablet (Lomotil) acetaminophen 325 mg tablet 325 - 650 mg PO Q6H PRN Pain 12/21/23 04/16/24 History lidocaine 4 % topical patch 1 patch topical DAILY PRN Pain 12/21/23 04/16/24 History ketoconazole 2 % topical cream 1 applic topical BID 2 weeks #30 01/17/24 04/16/24 Rx grams OneTouch Verio test strips (blood #300 ea 03/19/24 04/01/24 Rx sugar diagnostic) duloxetine 60 mg capsule,delayed 60 mg PO UD 03/22/24 04/16/24 History release insulin lispro 100 unit/mL 5 - 10 unit subcut UD 03/22/24 04/16/24 History subcutaneous pen (Humalog KwikPen (U-100) Insulin) cholecalciferol (vitamin D3) 50 50 mcg PO DAILY 03/26/24 04/16/24 History mcg (2,000 unit) capsule nystatin 100,000 unit/gram topical 1 applic topical BID #30 grams 04/03/24 04/16/24 Rx powder Allergies Allergy/AdvReac Type Severity Reaction Status Date / Time dapsone Allergy Intermediate Rash Verified 04/01/24 13:48 Sulfa (Sulfonamide Allergy Mild Unknown Verified 04/01/24 13:48 Antibiotics) latex Allergy Unknown Unknown Verified 04/01/24 13:48 ciprofloxacin AdvReac Intermediate "i blew up Verified 04/01/24 13:48 like a balloon" per pt adhesive AdvReac Unknown Unknown Verified 04/01/24 13:48 metronidazole [From Flagyl] AdvReac Unknown Unknown Verified 04/01/24 13:48 red dye AdvReac Unknown Unknown Verified 04/01/24 13:48 Past Med/Surg History Problem List (Updated 04/16/24 @ 18:00 by Luiz Marti MD) Hypoxia (Acute) Influenza A (Acute) Diarrhea (Acute) Influenza A virus subtype H1 2009 pandemic strain present Closed compression fracture of lumbar vertebra (Acute ~2019) a chronic superior endplate compression fracture deformity of L5 per the MRI from 03/22/24 Pyelonephritis (Acute) Right sided sciatica (Acute) Abdominal pain, lower (Acute) Tiredness Hypertension Dermatitis Low back pain Overactive bladder Hypomagnesemia (Acute) Lumbar contusion (Acute) Left leg weakness (Acute) Nonproliferative diabetic retinopathy Diabetic peripheral neuropathy Stented coronary artery Loss of protective sensation of skin of foot H/O: stroke with residual effects Type 2 diabetes mellitus with insulin therapy Albuminuria Recurrent UTI (urinary tract infection) Urine incontinence (Chronic) Age-related cognitive decline (Chronic) Diabetic peripheral neuropathy associated with type 2 diabetes mellitus (Acute) Gait disturbance (Acute) Hyperlipidemia (Acute) IBS (irritable bowel syndrome) (Acute) Nephrolithiasis (Acute) Neuropathic pain of both feet (Acute) Vitamin D deficiency disease (Acute) Medical History Spinal stenosis, lumbar region with neurogenic claudication Stroke-like symptom Numbness of left hand Humerus fracture Balance problem Stroke Fall Abnormal thyroid blood test Localized swelling of both lower legs Hypoglycemia Lupus Closed left humeral fracture (07/22/23) from a fall Interstitial lung disease Diabetes mellitus type 2, uncontrolled CAD (coronary artery disease) Hypertension Contact dermatitis Chronic cough Rash Herpes zoster, ocular Contusion of leg, left Gross hematuria Physical deconditioning Expressive aphasia UTI (urinary tract infection) Chronic diarrhea Spinal stenosis of lumbar region Cerebrovascular disease Family history of dementia Neurogenic claudication due to lumbar spinal stenosis Arm DVT (deep venous thromboembolism), acute Mitral regurgitation Recurrent UTI Hx of renal calculi C. difficile colitis Surgical History History of lithotripsy S/P cardiac catheterization Hx of cholecystectomy Family History Mother Alzheimer disease Hypertension Brother Diabetes Myocardial infarction Father Hypertension Sister Lung cancer Other Family history non-contributory Stroke Denies family history of Ovarian cancer Prostate cancer Breast cancer Colorectal cancer Social History Smoking Status: Never smoker Second Hand Exposure: No; Do You Dip or Chew Tobacco: No; Hx Alcohol Use: No Hx Substance Use: No Preferred Language: Turkish Communication Ability: Effective Visual Impairment: No Limitations Hearing Ability: Normal Sterile Technician Required: No Beliefs That Will Affect Care: None marital status: / Current Living Situation: Alone Current Living Situation Comment: recently moved out of assisted living to back home alone current occupational status: retired Feels Safe at Home: Yes Childhood Exposure to Second-Hand Smoke: No Dental Care, Regularly: No Physical Activity Frequency: Does not Exercise Seatbelt Use: always Sunscreen Use: No Assistive Devices: Walker Review of Systems See HPI for pertinent positives & negatives. Physical Exam Vital Signs Vital Signs - 24 hr 04/16/24 10:21 04/16/24 10:24 04/16/24 10:27 Temperature 37.2 C Temperature Source Oral Pulse Rate 83 81 78 Pulse Rate from SpO2 Sensor 78 Respiratory Rate 22 25 H Respiratory Effort / Characteristics Non-Labored Spontaneous Respiratory Depth Normal Respiratory Pattern Regular Blood Pressure 163/98 H Blood Pressure Mean 119 Pulse Oximetry 98 99 Oxygen Delivery Method Nasal Cannula Nasal Cannula Oxygen Flow Rate 2 2 Fraction of Inspired Oxygen Sepsis Recent Fever Within 48 Hours No Sepsis New/Unexplained Change in Mental Status No Sepsis Action Taken by Nursing No Action Required Oxygen Flow Rate - Titration Pulse Oximetry Post Tiitration 04/16/24 10:30 04/16/24 10:30 04/16/24 10:31 Temperature Temperature Source Pulse Rate 81 Pulse Rate from SpO2 Sensor 81 Respiratory Rate 35 H Respiratory Effort / Characteristics Respiratory Depth Respiratory Pattern Blood Pressure 151/84 H Blood Pressure Mean 122 Pulse Oximetry 100 Oxygen Delivery Method Nasal Cannula Nasal Cannula Oxygen Flow Rate 2 0 Fraction of Inspired Oxygen 88 Sepsis Recent Fever Within 48 Hours Sepsis New/Unexplained Change in Mental Status Sepsis Action Taken by Nursing Oxygen Flow Rate - Titration 2 Pulse Oximetry Post Tiitration 98 04/16/24 10:54 04/16/24 11:00 04/16/24 11:03 Temperature Temperature Source Pulse Rate 80 81 Pulse Rate from SpO2 Sensor 79 80 Respiratory Rate 28 H 29 H Respiratory Effort / Characteristics Respiratory Depth Respiratory Pattern Blood Pressure 140/74 Blood Pressure Mean 102 Pulse Oximetry 98 97 Oxygen Delivery Method Nasal Cannula Nasal Cannula Oxygen Flow Rate 2 2 Fraction of Inspired Oxygen Sepsis Recent Fever Within 48 Hours Sepsis New/Unexplained Change in Mental Status Sepsis Action Taken by Nursing Oxygen Flow Rate - Titration Pulse Oximetry Post Tiitration 04/16/24 11:21 04/16/24 11:30 04/16/24 11:36 Temperature Temperature Source Pulse Rate 82 83 Pulse Rate from SpO2 Sensor 81 83 Respiratory Rate 20 30 H Respiratory Effort / Characteristics Respiratory Depth Respiratory Pattern Blood Pressure 126/66 Blood Pressure Mean 82 Pulse Oximetry 98 97 Oxygen Delivery Method Nasal Cannula Nasal Cannula Oxygen Flow Rate 2 2 Fraction of Inspired Oxygen Sepsis Recent Fever Within 48 Hours Sepsis New/Unexplained Change in Mental Status Sepsis Action Taken by Nursing Oxygen Flow Rate - Titration Pulse Oximetry Post Tiitration 04/16/24 12:00 04/16/24 12:00 04/16/24 12:30 Temperature Temperature Source Pulse Rate 82 Pulse Rate from SpO2 Sensor 83 Respiratory Rate 28 H Respiratory Effort / Characteristics Respiratory Depth Respiratory Pattern Blood Pressure 111/68 107/68 Blood Pressure Mean 77 93 Pulse Oximetry 97 Oxygen Delivery Method Nasal Cannula Oxygen Flow Rate 2 Fraction of Inspired Oxygen Sepsis Recent Fever Within 48 Hours Sepsis New/Unexplained Change in Mental Status Sepsis Action Taken by Nursing Oxygen Flow Rate - Titration Pulse Oximetry Post Tiitration 04/16/24 12:30 04/16/24 12:45 04/16/24 13:00 Temperature Temperature Source Pulse Rate 84 81 Pulse Rate from SpO2 Sensor 84 81 Respiratory Rate 26 H 27 H Respiratory Effort / Characteristics Respiratory Depth Respiratory Pattern Blood Pressure 110/66 Blood Pressure Mean 83 Pulse Oximetry 96 98 Oxygen Delivery Method Nasal Cannula Nasal Cannula Oxygen Flow Rate 2 2 Fraction of Inspired Oxygen Sepsis Recent Fever Within 48 Hours Sepsis New/Unexplained Change in Mental Status Sepsis Action Taken by Nursing Oxygen Flow Rate - Titration Pulse Oximetry Post Tiitration 04/16/24 13:06 04/16/24 14:24 04/16/24 15:30 Temperature Temperature Source Pulse Rate 82 73 68 Pulse Rate from SpO2 Sensor 82 68 Respiratory Rate 26 H 24 Respiratory Effort / Characteristics Respiratory Depth Respiratory Pattern Blood Pressure 126/68 Blood Pressure Mean 87 Pulse Oximetry 97 98 Oxygen Delivery Method Nasal Cannula Oxygen Flow Rate 2 Fraction of Inspired Oxygen Sepsis Recent Fever Within 48 Hours Sepsis New/Unexplained Change in Mental Status Sepsis Action Taken by Nursing Oxygen Flow Rate - Titration Pulse Oximetry Post Tiitration 04/16/24 16:00 Temperature Temperature Source Pulse Rate Pulse Rate from SpO2 Sensor Respiratory Rate Respiratory Effort / Characteristics Respiratory Depth Respiratory Pattern Blood Pressure 119/65 Blood Pressure Mean 101 Pulse Oximetry Oxygen Delivery Method Oxygen Flow Rate Fraction of Inspired Oxygen Sepsis Recent Fever Within 48 Hours Sepsis New/Unexplained Change in Mental Status Sepsis Action Taken by Nursing Oxygen Flow Rate - Titration Pulse Oximetry Post Tiitration See below Constitutional WD/WN, vitals as above ENMT Dry mucosa Respiratory normal respiratory effort, lungs clear to auscultation Cardiovascular RRR, no murmur, no edema Gastrointestinal (Abdomen) Inspection/Auscultation: abdomen normal to inspection; abdomen not distended Percussion/Palpation: + abdomen tender ( right upper quadrant and right lower quadrant ) and abdomen soft; no guarding, abdomen not rigid and no abdominal mass Musculoskeletal no cyanosis or clubbing, extremities motor strength 5/5 Skin no rashes, warm and dry Course Administered Medications Discontinued Medications Sodium Chloride (Nss) 1,000 mls @ 999 mls/hr IV .[id number] MARIE Stop: 04/16/24 13:12 Last Infusion: 04/16/24 15:46 Dose: Infused Documented By: Admin: 04/16/24 12:33 Dose: 999 mls/hr Documented By: LEONOR Ioversol (Optiray 320 100ml) 90 ml IV ONCE ONE Stop: 04/16/24 14:06 Last Admin: 04/16/24 14:06 Dose: 90 ml Documented By: SERGIO Medical Decision Making Differential Diagnosis Viral URI, pneumonia, sepsis, UTI, infectious diarrhea Medical Records Attestation: I reviewed the patient's medical records. Home Medications Current Medication List: was personally reviewed by me Laboratory Data Attestation: I reviewed the patient's lab results. 04/16/24 10:21 04/16/24 10:21 Lab Results 04/16/24 04/16/24 04/16/24 Range/Units 10:21 12:53 12:55 WBC 6.70 (4.8-10.8) K/ul RBC 4.82 (4.20-5.40) M/uL Hgb 14.1 (12.0-16.0) g/dl Hct 44.2 (37.0-47.0) % MCV 91.7 (80.0-100.0) fL MCH 29.3 (25.0-34.0) pg MCHC 31.9 L (32.0-36.0) g/dL RDW Std Deviation 46.4 H (36.4-46.3) fL RDW Coeff of Linda 13.8 (11.5-14.5) % Plt Count 137 (130-400) K/uL MPV 10.5 (9.4-12.4) fL Immature Gran % (Auto) 0.4 % Neut % (Auto) 69.2 % Lymph % (Auto) 16.7 % [place] % (Auto) 13.3 % Eos % (Auto) 0.1 % Baso % (Auto) 0.3 % Neut # (Auto) 4.63 (1.40-6.50) K/uL Lymph # (Auto) 1.12 L (1.20-3.40) K/uL [place] # (Auto) 0.89 H (0.11-0.59) K/uL Eos # (Auto) 0.01 (0.00-0.50) K/uL Baso # (Auto) 0.02 (0.00-0.20) K/uL Immature Gran # (Auto) 0.03 (0.01-0.20) K/uL Sodium 135 L (136-145) mmol/L Potassium 4.2 (3.5-5.1) mmol/L Chloride 101 (98-107) mmol/L Carbon Dioxide 22 (21-32) mmol/L Anion Gap 12 H (3-11) BUN 24 H (6-23) mg/dl Creatinine 1.25 H (0.6-1.2) mg/dl Est Cr Clr Drug Dosing Not Reportable eGFR 42.77 BUN/Creatinine Ratio 19.2 (10-20) Glucose 230 H (70-99(Fasting)) mg/dl Lactate 1.2 (0.4-2.0) mmol/L Calcium 9.4 (8.6-10.3) mg/dl Magnesium 1.7 (1.7-2.4) mg/dl Total Bilirubin 0.9 (0.2-1.0) mg/dl AST 32 (13-39) U/L ALT 28 (7-52) U/L Alkaline Phosphatase 52 (34-104) U/L Total Protein 7.9 (6.0-8.3) gm/dl Albumin 4.3 (3.4-5.0) gm/dl Globulin 3.6 (2.5-4.0) gm/dl Albumin/Globulin Ratio 1.2 (0.9-2) TSH 2.277 (0.300-4.500) uIu/ml Urine Color Urine Appearance (Clear) Urine pH (4.5-7.5) Ur Specific Casey (1.000-1.030) Urine Protein (Negative) Urine Glucose (UA) (Negative) Urine Ketones (Negative) Urine Blood (Negative) Urine Nitrite (Negative) Urine Bilirubin (Negative) Urine Urobilinogen (Negative) Ur Leukocyte Esterase (Negative) Urine WBC (Auto) (0-5) /hpf Urine RBC (Auto) (0-2) /hpf U Hyaline Cast (Auto) (0-2) /lpf U Epithel Cells (Auto) (0-2) /hpf Urine Bacteria (Auto) (None Seen) Urine Yeast (None Prsent) Nasal Influ A H1 2008 PCR DETECTED A (NotDetected) Stl C. diff Tox B Gene (Neg) Adenovirus (PCR) Not Detected (NotDetected) B. pertussis DNA (PCR) Not Detected (NotDetected) B.parapertussis DNA PCR Not Detected (NotDetected) C. pneumoniae DNA (PCR) Not Detected (NotDetected) Coronavirus OC43 (PCR) Not Detected (NotDetected) Coronavirus HKU1 (PCR) Not Detected (NotDetected) Coronavirus 229E (PCR) Not Detected (NotDetected) SARS-CoV-2 (PCR) Not Detected (NotDetected) Coronavirus NL63 (PCR) Not Detected (NotDetected) Human Metapneumovir PCR Not Detected (NotDetected) Influenza Type B (PCR) Not Detected (NotDetected) M. pneumoniae (PCR) Not Detected (NotDetected) Parainfluenza 1 (PCR) Not Detected (NotDetected) Parainfluenza 2 (PCR) Not Detected (NotDetected) Parainfluenza 3 (PCR) Not Detected (NotDetected) Parainfluenza 4 (PCR) Not Detected (NotDetected) RSV (PCR) Not Detected (NotDetected) Entero/Rhino (PCR) Not Detected (NotDetected) 04/16/24 Range/Units 16:40 WBC (4.8-10.8) K/ul RBC (4.20-5.40) M/uL Hgb (12.0-16.0) g/dl Hct (37.0-47.0) % MCV (80.0-100.0) fL MCH (25.0-34.0) pg MCHC (32.0-36.0) g/dL RDW Std Deviation (36.4-46.3) fL RDW Coeff of Linda (11.5-14.5) % Plt Count (130-400) K/uL MPV (9.4-12.4) fL Immature Gran % (Auto) % Neut % (Auto) % Lymph % (Auto) % [place] % (Auto) % Eos % (Auto) % Baso % (Auto) % Neut # (Auto) (1.40-6.50) K/uL Lymph # (Auto) (1.20-3.40) K/uL [place] # (Auto) (0.11-0.59) K/uL Eos # (Auto) (0.00-0.50) K/uL Baso # (Auto) (0.00-0.20) K/uL Immature Gran # (Auto) (0.01-0.20) K/uL Sodium (136-145) mmol/L Potassium (3.5-5.1) mmol/L Chloride (98-107) mmol/L Carbon Dioxide (21-32) mmol/L Anion Gap (3-11) BUN (6-23) mg/dl Creatinine (0.6-1.2) mg/dl Est Cr Clr Drug Dosing eGFR BUN/Creatinine Ratio (10-20) Glucose (70-99(Fasting)) mg/dl Lactate (0.4-2.0) mmol/L Calcium (8.6-10.3) mg/dl Magnesium (1.7-2.4) mg/dl Total Bilirubin (0.2-1.0) mg/dl AST (13-39) U/L ALT (7-52) U/L Alkaline Phosphatase (34-104) U/L Total Protein (6.0-8.3) gm/dl Albumin (3.4-5.0) gm/dl Globulin (2.5-4.0) gm/dl Albumin/Globulin Ratio (0.9-2) TSH (0.300-4.500) uIu/ml Urine Color Yellow Urine Appearance Turbid A (Clear) Urine pH 5.5 (4.5-7.5) Ur Specific Casey 1.045 H (1.000-1.030) Urine Protein 2+ H (Negative) Urine Glucose (UA) Negative (Negative) Urine Ketones Trace H (Negative) Urine Blood 3+ H (Negative) Urine Nitrite Negative (Negative) Urine Bilirubin Negative (Negative) Urine Urobilinogen Negative (Negative) Ur Leukocyte Esterase 3+ H (Negative) Urine WBC (Auto) >50 H (0-5) /hpf Urine RBC (Auto) >20 H (0-2) /hpf U Hyaline Cast (Auto) 6-10 H (0-2) /lpf U Epithel Cells (Auto) 6-10 H (0-2) /hpf Urine Bacteria (Auto) 1+ H (None Seen) Urine Yeast Present A (None Prsent) Nasal Influ A H1 2008 PCR (NotDetected) Stl C. diff Tox B Gene Negative Cdiff Gene (Neg) Adenovirus (PCR) (NotDetected) B. pertussis DNA (PCR) (NotDetected) B.parapertussis DNA PCR (NotDetected) C. pneumoniae DNA (PCR) (NotDetected) Coronavirus OC43 (PCR) (NotDetected) Coronavirus HKU1 (PCR) (NotDetected) Coronavirus 229E (PCR) (NotDetected) SARS-CoV-2 (PCR) (NotDetected) Coronavirus NL63 (PCR) (NotDetected) Human Metapneumovir PCR (NotDetected) Influenza Type B (PCR) (NotDetected) M. pneumoniae (PCR) (NotDetected) Parainfluenza 1 (PCR) (NotDetected) Parainfluenza 2 (PCR) (NotDetected) Parainfluenza 3 (PCR) (NotDetected) Parainfluenza 4 (PCR) (NotDetected) RSV (PCR) (NotDetected) Entero/Rhino (PCR) (NotDetected) Imaging Data Attestation: I personally reviewed and interpreted this imaging study as follows: My Impression: My chest x-ray interpretation: No acute cardiopulmonary abnormality. Radiologist's Impression: Chest X-Ray 04/16/24 12:10 XR chest 1V portable HISTORY: 83 years-old Female weakness COMPARISON: Chest CT 07/22/2023 TECHNIQUE: AP view of the chest FINDINGS: Cardiac silhouette is enlarged. Atherosclerosis of the aorta. Chronic interstitial lung disease redemonstrated. No pneumothorax, pleural effusion, or overt pulmonary edema or lobar airspace consolidation. Degenerative changes of the shoulders and spine. IMPRESSION: 1. Cardiomegaly without pulmonary edema. 2. Chronic interstitial lung disease. ACT 112: Negative or not required by law. The above report was generated using voice recognition software. It may contain grammatical, syntax or spelling errors. Electronically signed by: Jarad Valdez M.D. 04/16/2024 12:50 PM Abdomen/Pelvis CT 04/16/24 12:12 CT OF THE ABDOMEN AND PELVIS WITH CONTRAST CLINICAL HISTORY: Abdominal pain and diarrhea. COMPARISON STUDY: CT of the abdomen and pelvis July 22, 2023. TECHNIQUE: Following IV administration of 90 mL of Optiray, axial images of the abdomen and pelvis were obtained from the lung bases to the proximal femurs. Images were reviewed in the axial, sagittal, and coronal planes. IV contrast was administered without complication. Automated exposure control was utilized for the study. A dose lowering technique was utilized adhering to the principles of ALARA. CT DOSE: 1411.75 mGy.cm FINDINGS: Subpleural groundglass opacities, reticulation and traction bronchiectasis indicate interstitial lung disease within the lung bases. This is unchanged. The heart is moderately enlarged. No pneumatosis, free air or portal venous gas. There is a small hiatal hernia. There is no biliary ductal dilatation status post cholecystectomy. Liver, spleen, right adrenal gland and pancreas are unremarkable. A 1.8 cm left adrenal nodule is unchanged. There is moderate bilateral renal cortical thinning. There is no hydronephrosis. There are no urinary calculi. Moderate bladder wall thickening is present. There is adjacent stranding. There is colonic diverticulosis without evidence for acute diverticulitis. No evidence for a bowel obstruction. The colon is fluid-filled. Major vasculature is patent. There is no lymphadenopathy. No fluid collections. Old L5 compression fractures unchanged. No acute fractures within the lumbar spine, pelvis or hips. IMPRESSION: 1. No bowel obstruction. Fluid-filled colon and rectum suggestive of a diarrheal state. No bowel wall thickening. 2. Bladder wall thickening with adjacent stranding. This could be correlated with urinalysis to exclude cystitis. ACT 112: Negative or not required by law. Electronically signed by: Tristin Hilliard M.D. 04/16/2024 2:46 PM ECG Data Attestation: I personally reviewed and interpreted this ECG as follows: Indication: + SOB/dyspnea Rate (beats per minute): 83 Rhythm: + normal sinus ECG Intervals/blocks: + Normal QRS, + Normal [place] and + Normal QT-c ECG [place]: + Normal ECG ST segments: + Normal ST segments Comparison ECG Date: from (03/22/24) Change: no significant change Blood Pressure Blood Pressure Findings: Elevated blood pressure Blood Pressure Disposition: elevated BP felt to be situational MDM Narrative Patient is a an 83-year-old female presents with multiple episodes of loose stools as well as generalized weakness. Afebrile nontoxic-appearing here today. She is requiring 2 L of nasal cannula here in the ED which is a new requirement for her. Nonperitoneal abdominal exam. She has a history of prior diarrheal illness related to IBS. No risk factors for C. difficile or infectious diarrhea however did order C. difficile testing and stool culture due to the extent of her symptoms. No leukocytosis or bandemia noted. Lactate within normal limits No severe electrolyte abnormality noted. Mild CINDI. CT of the abdomen and pelvis shows no acute abdominal pelvic abnormality. Mild thickening of the bladder wall. Awaiting urinalysis results prior to initiation of antibiotics. Influenza A positive. Chest x-ray nonconcerning on my independent review. Will admit for diarrhea, dehydration and influenza with new oxygen requirement. Will defer to inpatient team for antibiotics pending results of her UTI. Patient team to follow-up results of stool studies. Impression & Plan Diarrhea, Influenza A, Hypoxia Admit to hospitalist service. Discharge Plan Visit Data Chief Complaint: Weakness Stated Complaint: WEAKNESS, UNABLE TO AMBULATE, AB PAIN, DIARRHEA ED Provider: Luiz Marti Discharge Problem: Diarrhea, Influenza A, Hypoxia Forms Stand Alone Forms: My [facility] [email or web address] Prescriptions Prescriptions: No Action (DME) blood-glucose meter [OneTouch Verio Reflect Meter] Misc See Rx Instructions .Route Qty: 1 0RF Rx Instructions: As directed (DME) lancets [OneTouch Delica Plus Lancet] 33 gauge misc See Rx Instructions .ROUTE .MEDSUPPLY Qty: 400 3RF Rx Instructions: use to test 4 times daily (DME) pen needle, diabetic [BD Ultra-Fine Cris Pen Needle] 32 gauge x 5/32" needle See Rx Instructions .ROUTE .MEDSUPPLY Qty: 400 3RF Rx Instructions: use 4 per day with insulin injections methenamine hippurate 1 gram tablet 1 g PO BID Qty: 30 0RF Rx Instructions: last filled 01/28/24 90 day supply diphenoxylate-atropine [Lomotil] 2.5-0.025 mg tablet 1 tab PO DAILY Qty: 90 3RF Rx Instructions: last filled 12/08/23 90 day supply acetaminophen 325 mg tablet 325 - 650 mg PO Q6H PRN (Reason: Pain) Rx Instructions: otc unable to verify 325mg 1 -2 tabs orally every 6 hours PRN; lidocaine 4 % adhesive patch,medicated 1 patch topical DAILY PRN (Reason: Pain) Rx Instructions: otc unable to verify (DME) OneTouch Verio test strips Strip See Rx Instructions .ROUTE .MEDSUPPLY Qty: 300 3RF Rx Instructions: test 3 times daily nystatin 100,000 unit/gram powder 1 applic topical BID Qty: 30 0RF Gemtesa 75 mg tablet 75 mg PO DAILY Rx Instructions: last filled 01/29/24 90 day supply cholecalciferol (vitamin D3) 50 mcg (2,000 unit) capsule 50 mcg PO DAILY ketoconazole 2 % cream 1 applic topical BID 14 Days Qty: 30 1RF Rx Instructions: filled 03/12 30 day supply insulin glargine U-300 conc [Toujeo SoloStar U-300 Insulin] 300 unit/mL (1.5 mL) insulin pen 40 unit SUBCUT UD Rx Instructions: 40 units subcut qam; last filled in January 2024 for 9 pens for 90 day supply. No units listed on pharmacy directions per the safety representative. Women's One Daily 18 mg iron-400 mcg-500 mg Ca Tablet 1 tab PO QAM Rx Instructions: otc unable to verify PreserVision AREDS-2 250-90-40-1 mg Capsule 1 tab PO BID Rx Instructions: otc unable to verify duloxetine 60 mg capsule,delayed release(DR/EC) 60 mg PO UD Rx Instructions: last filled 07/01/23 90 day supply per rep. 60 mg po qam; take with the 30 mg cap, for total dose of 90 mg per day insulin lispro [Humalog KwikPen Insulin] 100 unit/mL insulin pen 5 - 10 unit subcut UD Rx Instructions: original 5-10 units. Last filled February 2024, filled 30 pens. No units listed on pharmacy directions atorvastatin [Lipitor] 40 mg tablet 40 mg PO HS Qty: 90 3RF Rx Instructions: filled 01/28/24 90 day supply metoprolol succinate [Toprol XL] 50 mg tablet extended release 24 hr 50 mg PO QAM Qty: 90 3RF Rx Instructions: filled 03/06/23 90 day supply spironolactone [Aldactone] 25 mg tablet 12.5 mg PO DAILY Qty: 45 3RF Rx Instructions: last filled 01/28/24 90 day supply lisinopril 40 mg tablet 40 mg PO QAM Qty: 30 3RF Rx Instructions: last filled 01/28/24 90 day supply doxazosin 1 mg tablet 1 mg PO DAILY Qty: 30 2RF Rx Instructions: last filled 01/28/24 90 day supply clopidogrel [Plavix] 75 mg tablet 75 mg PO DAILY Qty: 30 3RF Rx Instructions: last filled 01/28/24 90 day supply Referrals Referrals: Markus Castillo MD [Primary Care Provider] -
--- NOTE | 2024-04-16 12:51 | XRay Report ---
XR chest 1V portable HISTORY: 83 years-old Female weakness COMPARISON: Chest CT 07/22/2023 TECHNIQUE: AP view of the chest FINDINGS: Cardiac silhouette is enlarged. Atherosclerosis of the aorta. Chronic interstitial lung disease redem onstrated. No pneumothorax, pleural effusion, or overt pulmonary edema or lobar airspace consolidatio n. Degenerative changes of the shoulders and spine. IMPRESSION: 1. Cardiomegaly without pulmonary edema. 2. Chronic interstitial lung disease. ACT 112: Negative or not required by law. The above report was generated using voice recognition software. It may contain grammatical, syntax o r spelling errors. Electronically signed by: Jarad Valdez M.D. 04/16/2024 12:50 PM
--- NOTE | 2024-04-16 13:03 | Electrocardiogram Report ---
Test Reason : Blood Pressure : */* mmHG Vent. Rate : 83 BPM Atrial Rate : 83 BPM P-R Int : 186 ms QRS Dur : 82 ms QT Int : 364 ms P-R-T Axes : 46 -10 62 degrees QTcB Int : 427 ms Poor data quality, interpretation may be adversely affected Normal sinus rhythm Poor R wave progression, consider anterior WA vs. lead placement vs. LVH Abnormal ECG When compared with ECG of 22-Mar-2024 10:52, No significant change was found Confirmed by Eliecer Perez ([id number]) on 04/16/2024 1:03:37 PM Referred By: REFERRED SELF Confirmed By: Eliecer Perez
[2024-04-16 13:35] LABS: Alanine Aminotransferase 28 U/L (7-52); Albumin Globulin Ratio 1.2 (0.9-2); Albumin Level 4.3 gm/dl (3.4-5.0); Alkaline Phosphatase 52 U/L (34-104); Anion Gap 12 (3-11); Aspartate Aminotransferase 32 U/L (13-39); BUN Creatinine Ratio 19.2 (10-20); Basophils # (auto) 0.02 K/uL (0.00-0.20); Basophils % (auto) 0.3 %; Bilirubin,Total 0.9 mg/dl (0.2-1.0); Blood Urea Nitrogen 24 mg/dl (6-23); Calcium 9.4 mg/dl (8.6-10.3); Carbon Dioxide 22 mmol/L (21-32); Chloride 101 mmol/L (98-107); Eosinophils # (auto) 0.01 K/uL (0.00-0.50); Eosinophils % (auto) 0.1 %; Globulin 3.6 gm/dl (2.5-4.0); Glucose 230 mg/dl (70-99(Fasting)); Hematocrit (blood only) 44.2 % (37.0-47.0); Hemoglobin 14.1 g/dl (12.0-16.0); Immature Granulocytes # (auto) 0.03 K/uL (0.01-0.20); Immature Granulocytes % (auto) 0.4 %; Lymphocytes # (auto) 1.12 K/uL (1.20-3.40); Lymphocytes % (auto) 16.7 %; Magnesium 1.7 mg/dl (1.7-2.4); Mean Corpuscular Hemoglobin 29.3 pg (25.0-34.0); Mean Corpuscular Hgb Conc 31.9 g/dL (32.0-36.0); Mean Corpuscular Volume 91.7 fL (80.0-100.0); Mean Platelet Volume 10.5 fL (9.4-12.4); Monocytes # (auto) 0.89 K/uL (0.11-0.59); Monocytes % (auto) 13.3 %; Neutrophils # (auto) 4.63 K/uL (1.40-6.50); Neutrophils % (auto) 69.2 %; Platelet Count 137 K/uL (130-400); Potassium 4.2 mmol/L (3.5-5.1); RDW Coefficient of Variation 13.8 % (11.5-14.5); RDW Standard Deviation 46.4 fL (36.4-46.3); Red Blood Count 4.82 M/uL (4.20-5.40); Sodium 135 mmol/L (136-145); Total Protein 7.9 gm/dl (6.0-8.3)
[2024-04-16 13:46] LABS: Thyroid Stimulating Hormone 2.277 uIu/ml (0.300-4.500)
[2024-04-16 14:05] LABS: Adenovirus PCR Not Detected (NotDetected); Bordetella parapertussis PCR Not Detected (NotDetected); Bordetella pertussis PCR Not Detected (NotDetected); Chlamydia pneumoniae PCR Not Detected (NotDetected); Coronavirus 229E PCR Not Detected (NotDetected); Coronavirus CoV-2 (COVID19)PCR Not Detected (NotDetected); Coronavirus HKU1 PCR Not Detected (NotDetected); Coronavirus NL63 PCR Not Detected (NotDetected); Coronavirus OC43PCR Not Detected (NotDetected); Human Metapneumovirus PCR Not Detected (NotDetected); Influenza A (H1 2009) PCR DETECTED (NotDetected); Influenza B PCR Not Detected (NotDetected); Mycoplasma pneumoniae PCR Not Detected (NotDetected); Parainfluenza Virus 1 PCR Not Detected (NotDetected); Parainfluenza Virus 2 PCR Not Detected (NotDetected); Parainfluenza Virus 3 PCR Not Detected (NotDetected); Parainfluenza Virus 4 PCR Not Detected (NotDetected); Respiratory Syncytial VirusPCR Not Detected (NotDetected); Rhinovirus/Enterovirus PCR Not Detected (NotDetected)
[2024-04-16] MEDS: OPTIRAY 320 100ml IV ONE (14:06)
--- NOTE | 2024-04-16 14:47 | CT Scan Report ---
CT OF THE ABDOMEN AND PELVIS WITH CONTRAST CLINICAL HISTORY: Abdominal pain and diarrhea. COMPARISON STUDY: CT of the abdomen and pelvis July 22, 2023. TECHNIQUE: Following IV administration of 90 mL of Optiray, axial images of the abdomen and pelvis we re obtained from the lung bases to the proximal femurs. Images were reviewed in the axial, sagittal, and coronal planes. IV contrast was administered without complication. Automated exposure control wa s utilized for the study. A dose lowering technique was utilized adhering to the principles of ALARA . CT DOSE: 1411.75 mGy.cm FINDINGS: Subpleural groundglass opacities, reticulation and traction bronchiectasis indicate interst itial lung disease within the lung bases. This is unchanged. The heart is moderately enlarged. No pne umatosis, free air or portal venous gas. There is a small hiatal hernia. There is no biliary ductal d ilatation status post cholecystectomy. Liver, spleen, right adrenal gland and pancreas are unremarkab le. A 1.8 cm left adrenal nodule is unchanged. There is moderate bilateral renal cortical thinning. T here is no hydronephrosis. There are no urinary calculi. Moderate bladder wall thickening is present. There is adjacent stranding. There is colonic diverticulosis without evidence for acute diverticulit is. No evidence for a bowel obstruction. The colon is fluid-filled. Major vasculature is patent. Ther e is no lymphadenopathy. No fluid collections. Old L5 compression fractures unchanged. No acute fract ures within the lumbar spine, pelvis or hips. IMPRESSION: 1. No bowel obstruction. Fluid-filled colon and rectum suggestive of a diarrheal state. No bowel wall thickening. 2. Bladder wall thickening with adjacent stranding. This could be correlated with urinalysis to exclu de cystitis. ACT 112: Negative or not required by law. Electronically signed by: Tristin Hilliard M.D. 04/16/2024 2:46 PM
--- NOTE | 2024-04-16 15:49 | History & Physical Report ---
Date of Service April 16, 2024 Assessment & Plan (1) Influenza A virus subtype H1 2009 pandemic strain present: Plan: 83-year-old female with a history of complicated UTI, DM2, chronic lumbar stenosis who presents with 1 day of diarrhea, weakness, and prerenal azotemia versus CINDI due to influenza A. She is flu a 2009 H1 positive on admission. She is acutely hypoxic. She is admitted for treatment of hypoxic respiratory failure due to flu and volume resuscitation with increased diarrheal losses. Influenza A H1 2009/swine flu No leukocytosis, no evidence on x-ray of superimposed pneumonia Patient is hypoxic on 2 L of nasal cannula Remaining BioFire negative No leukocytosis CTA/P: Fluid-filled colon and rectum suggestive of diarrhea. Suspect viral. Chest x-ray: Cardiomegaly without pulmonary edema, chronic interstitial lung disease Continue Tamiflu 5-day course. Will give initial 75 mg dose then dose reduced to 30 mg twice daily for renal function. Adjust as needed based on renal function. CINDI/prerenal azotemia Baseline creatinine approximately 0.91 Remain creatinine 1.25, clinically volume contracted with diarrhea IVFM Trend daily, renally adjust medications as needed 1 L supplemental IV FM added until p.o. intake improves and with ongoing losses from diarrhea Diarrhea Suspected due to influenza, stool studies and C. difficile are pending. She is at risk of C. difficile given recent hospitalization and antibiotic use. If C. difficile is negative may use Imodium for symptomatic. Do not use this until C. difficile is confirmed is negative Suspected UTI Patient reports dysuria x 1 day, reports that she has been incontinent of stool with difficulty wiping but in the last day she has also developed burning with urination CT with bladder wall thickening and stranding suspicious for cystitis Suspected developing UTI. UA ordered, if affected appearing will start Rocephin and follow cultures No CVA tenderness suggestive of Barrera Type II DM Continue glargine 40 units a.m. SSI. Goal BSG [id number] Lumbar stenosis, chronic back pain Continue symptomatic care DVT prophylaxis: Heparin, convert to lovenox if renal function improves Disposition: M/T Diet: Heart healthy/DM2 CODE STATUS: DNR/DNI (2) Closed compression fracture of lumbar vertebra: (3) Type 2 diabetes mellitus with insulin therapy: (4) Hyperlipidemia: (5) IBS (irritable bowel syndrome): History of Present Illness Primary Care Provider: Markus Castillo MD Sofia is an 83-year-old female with a past medical history of complicated UTI, type II DM, lumbar stenosis with chronic back pain, CAD/PCI and recent discharge 03/24/2024 after an admission for UTI treated with cefdinir and low back pain which improved on steroids who presents to the emergency department with generalized weakness, fatigue, loose stools/diarrhea. Patient has a prior history of IBS however has felt more weak than normal and was not able to ambulate independently from the shower. She reports she did do well after her prior discharge up until 1 day ago when her diarrhea and fatigue got worse. Sofia seen at the bedside. She reports that around 2 days ago her baseline cough seemed to get little worse and she also developed diarrhea. Cough has been productive for little bit of white sputum she developed pain with urination and dysuria around 1 day ago, has been peeing a little bit less but notes that her were symptom is diarrhea which "just runs right through me ". Denies bloody or black bowel movements but has completely liquid stool for the last 2 days. She feels globally weak but no focal weakness. Has been a little lightheaded today. Denies chest pain, chest pressure, shortness of breath, difficulty roly thing. No fevers. Denies chills. Denies abdominal pain but has had some cramping with her diarrhea. Denies flank tenderness. Medical History: Reviewed Medications: Reviewed Surgical History: Reviewed Family history: Reviewed Allergies: Reviewed Social History: Reviewed Code Status: DNR/DNI, reviewed with patient at the bedside on admission Allergies Allergy/AdvReac Type Severity Reaction Status Date / Time dapsone Allergy Intermediate Rash Verified 04/01/24 13:48 Sulfa (Sulfonamide Allergy Mild Unknown Verified 04/01/24 13:48 Antibiotics) latex Allergy Unknown Unknown Verified 04/01/24 13:48 ciprofloxacin AdvReac Intermediate "i blew up Verified 04/01/24 13:48 like a balloon" per pt adhesive AdvReac Unknown Unknown Verified 04/01/24 13:48 metronidazole [From Flagyl] AdvReac Unknown Unknown Verified 04/01/24 13:48 red dye AdvReac Unknown Unknown Verified 04/01/24 13:48 Home Medications Medication Instructions Recorded Confirmed Type multivit-iron 18 mg-folic acid 400 1 tab PO QAM 11/11/19 04/16/24 History mcg-calcium 500 mg-minerals tablet (Women's One Daily) OneTouch Verio Reflect Meter #1 ea 08/05/21 04/01/24 Rx (blood-glucose meter) OneTouch Delica Plus Lancet 33 #400 ea 07/28/22 04/01/24 Rx gauge (lancets) vit C 250 mg-vit E 90 mg-zinc 40 1 tab PO BID 08/17/22 04/16/24 History mg-copper 1 ep-aidyes-mxndtd capsule (PreserVision AREDS-2) atorvastatin 40 mg tablet (Lipitor) 40 mg PO HS #90 tabs 04/25/23 04/16/24 Rx clopidogrel 75 mg tablet (Plavix) 75 mg PO DAILY #30 tabs 04/25/23 04/16/24 Rx doxazosin 1 mg tablet 1 mg PO DAILY #30 tabs 04/25/23 04/16/24 Rx lisinopril 40 mg tablet 40 mg PO QAM #30 tabs 04/25/23 04/16/24 Rx metoprolol succinate 50 mg 50 mg PO QAM #90 tabs 04/25/23 04/16/24 Rx tablet,extended release 24 hr (Toprol XL) spironolactone 25 mg tablet 12.5 mg (1/2 x 25 mg) PO DAILY #45 04/25/23 04/16/24 Rx (Aldactone) tabs pen needle, diabetic 32 gauge x #400 ea 05/16/23 04/01/24 Rx 5/32" (BD Ultra-Fine Cris Pen Needle) vibegron 75 mg tablet (Gemtesa) 75 mg PO DAILY 05/17/23 04/16/24 History methenamine hippurate 1 gram tablet 1 g PO BID #30 tabs 07/06/23 04/16/24 Rx insulin glargine U-300 conc 300 40 unit subcut UD 08/08/23 04/16/24 History unit/mL (1.5 mL) subcutaneous pen (Janny SoloStar U-300 Insulin) diphenoxylate-atropine 2.5 1 tab PO DAILY diarrhea #90 tabs 11/20/23 04/16/24 Rx mg-0.025 mg tablet (Lomotil) acetaminophen 325 mg tablet 325 - 650 mg PO Q6H PRN Pain 12/21/23 04/16/24 History lidocaine 4 % topical patch 1 patch topical DAILY PRN Pain 12/21/23 04/16/24 History ketoconazole 2 % topical cream 1 applic topical BID 2 weeks #30 01/17/24 04/16/24 Rx grams OneTouch Verio test strips (blood #300 ea 03/19/24 04/01/24 Rx sugar diagnostic) duloxetine 60 mg capsule,delayed 60 mg PO UD 03/22/24 04/16/24 History release insulin lispro 100 unit/mL 5 - 10 unit subcut UD 03/22/24 04/16/24 History subcutaneous pen (Humalog KwikPen (U-100) Insulin) cholecalciferol (vitamin D3) 50 50 mcg PO DAILY 03/26/24 04/16/24 History mcg (2,000 unit) capsule nystatin 100,000 unit/gram topical 1 applic topical BID #30 grams 04/03/24 04/16/24 Rx powder Past Med/Surg History Problem List (Updated 04/16/24 @ 18:00 by Luiz Marti MD) Hypoxia (Acute) Influenza A (Acute) Diarrhea (Acute) Influenza A virus subtype H1 2009 pandemic strain present Closed compression fracture of lumbar vertebra (Acute ~2019) a chronic superior endplate compression fracture deformity of L5 per the MRI from 03/22/24 Pyelonephritis (Acute) Right sided sciatica (Acute) Abdominal pain, lower (Acute) Tiredness Hypertension Dermatitis Low back pain Overactive bladder Hypomagnesemia (Acute) Lumbar contusion (Acute) Left leg weakness (Acute) Nonproliferative diabetic retinopathy Diabetic peripheral neuropathy Stented coronary artery Loss of protective sensation of skin of foot H/O: stroke with residual effects Type 2 diabetes mellitus with insulin therapy Albuminuria Recurrent UTI (urinary tract infection) Urine incontinence (Chronic) Age-related cognitive decline (Chronic) Diabetic peripheral neuropathy associated with type 2 diabetes mellitus (Acute) Gait disturbance (Acute) Hyperlipidemia (Acute) IBS (irritable bowel syndrome) (Acute) Nephrolithiasis (Acute) Neuropathic pain of both feet (Acute) Vitamin D deficiency disease (Acute) Medical History Spinal stenosis, lumbar region with neurogenic claudication Stroke-like symptom Numbness of left hand Humerus fracture Balance problem Stroke Fall Abnormal thyroid blood test Localized swelling of both lower legs Hypoglycemia Lupus Closed left humeral fracture (07/22/23) from a fall Interstitial lung disease Diabetes mellitus type 2, uncontrolled CAD (coronary artery disease) Hypertension Contact dermatitis Chronic cough Rash Herpes zoster, ocular Contusion of leg, left Gross hematuria Physical deconditioning Expressive aphasia UTI (urinary tract infection) Chronic diarrhea Spinal stenosis of lumbar region Cerebrovascular disease Family history of dementia Neurogenic claudication due to lumbar spinal stenosis Arm DVT (deep venous thromboembolism), acute Mitral regurgitation Recurrent UTI Hx of renal calculi C. difficile colitis Surgical History History of lithotripsy S/P cardiac catheterization Hx of cholecystectomy Family History Mother Alzheimer disease Hypertension Brother Diabetes Myocardial infarction Father Hypertension Sister Lung cancer Other Family history non-contributory Stroke Denies family history of Ovarian cancer Prostate cancer Breast cancer Colorectal cancer Social History Smoking Status: Never smoker Second Hand Exposure: No; Do You Dip or Chew Tobacco: No; Hx Alcohol Use: No Hx Substance Use: No Preferred Language: Chinese Communication Ability: Effective Visual Impairment: No Limitations Hearing Ability: Normal Track Oiler Required: No Beliefs That Will Affect Care: None marital status: / Current Living Situation: Alone Current Living Situation Comment: recently moved out of assisted living to back home alone current occupational status: retired Feels Safe at Home: Yes Childhood Exposure to Second-Hand Smoke: No Dental Care, Regularly: No Physical Activity Frequency: Does not Exercise Seatbelt Use: always Sunscreen Use: No Assistive Devices: Walker Physical Exam Physical Exam: General: Somnolent but awakens easily. NAD. Cooperative. HEENT: Atraumatic, normocephalic. Patient and hearing intact Pulm: CTAB A&P. -wheezes, -rales, -rhonchi. Symmetrical chest rise. No increased work of breathing. No respiratory distress. Cardiac: RRR, -mrg. Radial pulses intact and symmetrical. Abdominal: BS increased. Nontender, nondistended, soft. BS present. Results & Data Results & Data Vital Signs (Past 12 Hours) Vital Signs Temp Pulse Resp BP Pulse Ox O2 Del Method O2 Flow Rate 04/16/24 15:30 68 24 126/68 98 04/16/24 14:24 73 04/16/24 13:06 82 26 H 97 Nasal Cannula 2 04/16/24 13:00 110/66 04/16/24 12:45 81 27 H 98 Nasal Cannula 2 04/16/24 12:30 84 26 H 96 Nasal Cannula 2 04/16/24 12:30 107/68 04/16/24 12:00 82 28 H 97 Nasal Cannula 2 04/16/24 12:00 111/68 04/16/24 11:36 83 30 H 97 Nasal Cannula 2 04/16/24 11:30 126/66 04/16/24 11:21 82 20 98 Nasal Cannula 2 04/16/24 11:03 81 29 H 97 Nasal Cannula 2 04/16/24 11:00 140/74 04/16/24 10:54 80 28 H 98 Nasal Cannula 2 04/16/24 10:31 Nasal Cannula 0 04/16/24 10:30 151/84 H 04/16/24 10:30 81 35 H 100 Nasal Cannula 2 04/16/24 10:27 78 25 H 99 Nasal Cannula 2 04/16/24 10:24 37.2 C 81 22 163/98 H 98 Nasal Cannula 2 04/16/24 10:21 83 FiO2 04/16/24 15:30 04/16/24 14:24 04/16/24 13:06 04/16/24 13:00 04/16/24 12:45 04/16/24 12:30 04/16/24 12:30 04/16/24 12:00 04/16/24 12:00 04/16/24 11:36 04/16/24 11:30 04/16/24 11:21 04/16/24 11:03 04/16/24 11:00 04/16/24 10:54 04/16/24 10:31 88 04/16/24 10:30 04/16/24 10:30 04/16/24 10:27 04/16/24 10:24 04/16/24 10:21 PG Care Time/CCT Total # of Minutes Spent Total Time Spent with Patient: Total time spent is greater than 50% in coordination of care (as documented) at patient's floor/unit and/or counseling patient: Coding Level of Care Code 56440 INT INP/OBS CARE MIN Diagnoses Influenza A virus subtype H1 2009 pandemic strain present J10.1 Closed compression fracture of lumbar vertebra S32.000A Type 2 diabetes mellitus with insulin therapy E11.9; Z79.4 Hyperlipidemia E78.5 IBS (irritable bowel syndrome) K58.9
[2024-04-16] MEDS ORDERED: OSELTAMIVIR PHOSPHATE 75 MG CAP PO STA (16:03)
[2024-04-16 17:07] LABS: Appearance Urine Turbid (Clear); Bacteria Urine Automated 1+ (None Seen); Bilirubin Urine Negative (Negative); Blood Urine 3+ (Negative); Color Urine Yellow; Glucose Urine UA Negative (Negative); Ketones Urine Trace (Negative); Leukocyte Esterase Urine 3+ (Negative); Nitrite Urine Negative (Negative); Protein Urine 2+ (Negative); RBC Urine Automated >20 /hpf (0-2); Specific Gravity Urine 1.045 (1.000-1.030); Urobilinogen Urine Negative (Negative); WBC Urine Automated >50 /hpf (0-5); pH Urine 5.5 (4.5-7.5)
[2024-04-16 18:26] LABS: Adenovirus F 40/41 PCR Not Detected (NotDetected); Astrovirus PCR Not Detected (NotDetected); Campylobacter PCR Not Detected (NotDetected); Cryptosporidium PCR Not Detected (NotDetected); Cyclospora cayetanensis PCR Not Detected (NotDetected); Entamoeba histolytica PCR Not Detected (NotDetected); Enteroaggregative E.coli(EAEC) Not Detected (NotDetected); Enteropathogenic E.coli (EPEC) Not Detected (NotDetected); Enterotoxigenic E.coli (ETEC) Not Detected (NotDetected); Giardia lamblia PCR Not Detected (NotDetected); Norovirus GI/GII PCR Not Detected (NotDetected); Plesiomonas shigelloides PCR Not Detected (NotDetected); Rotavirus A PCR Not Detected (NotDetected); Salmonella PCR Not Detected (NotDetected); Sapovirus PCR Not Detected (NotDetected); Shiga-like Toxin E.coli (STEC) Not Detected (NotDetected); Shigella/Enteroinvasive E.coli Not Detected (NotDetected); Vibrio cholerae PCR Not Detected (NotDetected); Vibrio species PCR Not Detected (NotDetected); Yersinia enterocolitica PCR Not Detected (NotDetected)
[2024-04-16] MEDS ORDERED: LOPERAMIDE HCL 2 MG CAP PO PRN (19:08)
[2024-04-16] MEDS ORDERED: GLUCOSE 10 TAB/TUBE PO PRN (19:08)
[2024-04-16] MEDS ORDERED: GLUCOSE 40% GEL 15 GM TUBE PO PRN (19:08)
[2024-04-16] MEDS ORDERED: DEXTROSE 50% 50 ML SYRINGE IV PRN (19:08)
[2024-04-16] MEDS ORDERED: GLUCAGON FOR INJ 1 MG VIAL SQ PRN (19:08)
[2024-04-16] MEDS ORDERED: CARBOHYDRATES FOR HYPOGLYCEMIA PO PRN (19:08)
[2024-04-16] MEDS ORDERED: Patient's HEIGHT &/or WEIGHT Needed STA (19:25)
[2024-04-16] MEDS: Patient's HEIGHT &/or WEIGHT Needed SCH (19:55)
[2024-04-16] MEDS: INSULIN ASPART PER UNIT CHARGE SC SCH (20:47)
[2024-04-16] MEDS ORDERED: NON-FORMULARY MEDICATION (Vit C,E-Zn-Coppr-Lutein-Zeaxan [Preservision Areds-2] 250-90-40- PO SCH (21:00)
[2024-04-16] MEDS: ACETAMINOPHEN 500 MG TAB PO PRN (21:10)
[2024-04-16] MEDS: NSS + 20MEQ KCL 20 MEQ/1,000 ML BAG IV SCH (21:10)
[2024-04-16] MEDS: cefTRIAXone SODIUM 1,000 MG/50 ML BAG IV SCH (21:10)
[2024-04-16] MEDS: OSELTAMIVIR PHOSPHATE SUSP 30 MG/5 ML UDP PO SCH (21:10)
[2024-04-16] MEDS: HEPARIN SOD 5,000 UNIT/0.5 ML VIAL SQ SCH (21:11)
[2024-04-16] MEDS: ATORVASTATIN 40 MG TAB PO SCH (21:11)
[2024-04-17 06:58] LABS: Basophils # (auto) 0.01 K/uL (0.00-0.20); Basophils % (auto) 0.2 %; Eosinophils # (auto) 0.01 K/uL (0.00-0.50); Eosinophils % (auto) 0.2 %; Hemoglobin 11.8 g/dl (12.0-16.0); Immature Granulocytes # (auto) 0.03 K/uL (0.01-0.20); Immature Granulocytes % (auto) 0.5 %; Lymphocytes # (auto) 0.86 K/uL (1.20-3.40); Lymphocytes % (auto) 13.5 %; Mean Corpuscular Hemoglobin 29.2 pg (25.0-34.0); Mean Corpuscular Hgb Conc 31.1 g/dL (32.0-36.0); Mean Corpuscular Volume 94.1 fL (80.0-100.0); Mean Platelet Volume 10.1 fL (9.4-12.4); Monocytes # (auto) 0.64 K/uL (0.11-0.59); Monocytes % (auto) 10.1 %; Neutrophils % (auto) 75.5 %; Platelet Count 131 K/uL (130-400); RDW Coefficient of Variation 13.8 % (11.5-14.5); RDW Standard Deviation 47.7 fL (36.4-46.3); Red Blood Count 4.04 M/uL (4.20-5.40); White Blood Count 6.35 K/ul (4.8-10.8)
[2024-04-17 07:21] LABS: BUN Creatinine Ratio 23.3 (10-20); Calcium 7.9 mg/dl (8.6-10.3); Creatinine Clr Calc Pharmacy 31.8 ml/min; Potassium 4.6 mmol/L (3.5-5.1)
[2024-04-17] MEDS: DULoxetine HCL 60 MG CAP PO SCH (08:29)
[2024-04-17] MEDS: DIPHENOXYLATE/ATROPINE 2.5/0.025MG TAB PO SCH (08:29)
[2024-04-17] MEDS: DOXAZOSIN MESYLATE 1 MG TAB PO SCH (08:29)
[2024-04-17] MEDS: CEROVITE ADV FORMULA TAB PO SCH (08:30)
[2024-04-17] MEDS: VIBEGRON 75 MG TAB PO SCH (08:30)
[2024-04-17] MEDS: CHOLECALCIFEROL 25 MCG (1000 UNITS) TAB PO SCH (08:30)
[2024-04-17] MEDS: METOPROLOL SUCC 50MG EXT REL TAB PO SCH (08:31)
[2024-04-17] MEDS: DULoxetine HCL 30 MG CAP PO SCH (08:31)
[2024-04-17] MEDS: CLOPIDOGREL BISULFATE 75 MG TAB PO SCH (08:31)
[2024-04-17] MEDS: LANTUS PER UNIT CHARGE SQ SCH (08:32)
[2024-04-17] MEDS: LOPERAMIDE HCL 2 MG CAP PO PRN (09:46)
--- NOTE | 2024-04-17 14:00 | Hospitalist Progress Note ---
Date of Service April 17, 2024 Assessment & Plan (1) Influenza A virus subtype H1 2009 pandemic strain present: (2) UTI (urinary tract infection): Plan 83-year-old female with a history of complicated UTI, DM2, chronic lumbar stenosis who presents with 1 day of diarrhea, weakness, and prerenal azotemia versus CINDI due to influenza A. She is flu a 2009 H1 positive on admission, cxr without superimposed bacterial pneumonia, but with new oxygen requirement. She is admitted for treatment of hypoxic respiratory failure due to flu and volume resuscitation with increased diarrheal losses. Influenza A with GI manifestations (diarrhea) CTA/P: Fluid-filled colon and rectum suggestive of diarrhea. Suspect viral. Stool Biofire and cdiff negative. Continue home Lomotil. Add imodium prn Continue Tamiflu 5-day course. Wean O2 as able, baseline is room air. O2 goal greater than 92% PT/OTlives alone has been having home health PT coming to her CINDI/prerenal azotemia Baseline creatinine approximately 0.91. 1.25 on admission, this has improved with IV fluids to 1.16. AM BMP UTI CT with bladder wall thickening and stranding suspicious for cystitis. UA concerning for infection. Urine culture: Enterococcus faecalis, sensitivities pending. previously on ceftriaxone which would not cover, discussed with pharmacy and switch to amoxicillin p.o. twice daily Type II DM A1c 9.0, 03/2024. Continue glargine 40 units a.m. Continue SSI. Goal BSG [id number] BSGs acceptable CAD with history of PCI Continue metoprolol, lisinopril, Plavix, spironolactone, atorvastatin DVT prophylaxis: Heparin Disposition: continued inpatient stay, weaning oxygen, PT OT evals son updated by phone 04/17 Admission and Anticipated Discharge Date Admission Date: April 16, 2024 Supervising Physician Co-Signing Physician Notes PA Supervision Note: I did not personally see or examine the patient today, but I verified all akers points of EMETERIO Davies's assessment and plan with the following exceptions/additions: None Subjective Patient seen lying in bed, reports feeling better diarrhea has slowed some, relieved to hear that it was not infectious baseline is room air cough has decreased Review of Systems Review of Systems: All systems reviewed & are unremarkable except as noted in Subjective Physical Exam Physical Exam: General: NAD, VS as above Resp: normal respiratory effort, diminished in the bases, no wheezing, dry cough CV: RRR, no murmur, Abd: normal bowel sounds, non tender, minimally distended Extremities: Moves all extremities, Neuro: A&O x3, Results & Data Results & Data Vital Signs (Past 12 Hours) Vital Signs Temp Pulse Resp BP Pulse Ox O2 Del Method O2 Flow Rate 04/17/24 10:17 Nasal Cannula 04/17/24 07:30 98.1 F 95 H 18 146/77 H 98 Nasal Cannula 2.0 Laboratory Results cbc, chemistry, UA reviewed Stool studies reviewed PG Care Time/CCT Total # of Minutes Spent Total Time Spent with Patient: Total time spent is greater than 50% in coordination of care (as documented) at patient's floor/unit and/or counseling patient: Coding Level of Care Code 92036 SUB INP/OBS CARE 3/50MIN Diagnoses Influenza A virus subtype H1 2009 pandemic strain present J10.1 UTI (urinary tract infection) N39.0
[2024-04-17] MEDS: AMOXICILLIN 875 MG TAB PO SCH (17:18)
[2024-04-18 06:57] LABS: Basophils # (auto) 0.01 K/uL (0.00-0.20); Basophils % (auto) 0.2 %; Eosinophils # (auto) 0.06 K/uL (0.00-0.50); Eosinophils % (auto) 1.4 %; Hemoglobin 11.6 g/dl (12.0-16.0); Immature Granulocytes # (auto) 0.02 K/uL (0.01-0.20); Immature Granulocytes % (auto) 0.5 %; Lymphocytes # (auto) 1.19 K/uL (1.20-3.40); Lymphocytes % (auto) 28.3 %; Mean Corpuscular Hemoglobin 29.6 pg (25.0-34.0); Mean Corpuscular Hgb Conc 32.2 g/dL (32.0-36.0); Mean Corpuscular Volume 91.8 fL (80.0-100.0); Mean Platelet Volume 10.1 fL (9.4-12.4); Monocytes # (auto) 0.45 K/uL (0.11-0.59); Monocytes % (auto) 10.7 %; Neutrophils # (auto) 2.48 K/uL (1.40-6.50); Neutrophils % (auto) 58.9 %; Platelet Count 124 K/uL (130-400); RDW Coefficient of Variation 13.9 % (11.5-14.5); RDW Standard Deviation 47.2 fL (36.4-46.3); Red Blood Count 3.92 M/uL (4.20-5.40); White Blood Count 4.21 K/ul (4.8-10.8)
[2024-04-18 07:12] LABS: Calcium 8.6 mg/dl (8.6-10.3); Creatinine Clr Calc Pharmacy 32.6 ml/min; Potassium 4.3 mmol/L (3.5-5.1)
[2024-04-18 07:22] VITALS: BP 115/68; PULSE 66; RESP 18; TEMP 97.3; O2SAT 100
--- NOTE | 2024-04-18 14:58 | Discharge Summary ---
Discharge Summary Date of Service April 18, 2024 Principal Dx & Hospital Course #1 = Principal Diagnosis (1) Influenza A virus subtype H1 2009 pandemic strain present: (2) UTI (urinary tract infection): Plan Influenza A with GI manifestations (diarrhea) 83-year-old female with a history of complicated UTI, DM2, chronic lumbar stenosis who presents with 1 day of diarrhea, weakness, and prerenal azotemia versus CINDI due to influenza A. She is flu a 2009 H1 positive on admission, cxr without superimposed bacterial pneumonia, but with new oxygen requirement. CTA/P showed fluid filled colon and rectum suggestive of diarrhea and bladder wall thickening concerning for cystitis. She is admitted for treatment of hypoxic respiratory failure due to flu and volume resuscitation with increased diarrheal losses. She was treated with She has been weaned down to room air and doing well. Her stool testing was negative and her diarrhea has slowed, also using prn Imodium. PT/OT recommending rehab and will be discharged to [facility] today. Continue 5 Day course of tamiflu CINDI/prerenal azotemia Baseline creatinine approximately 0.91. 1.25 on admission, this has improved with IV fluids UTI UC preliminary with enterococcus but then changed to contaminate. Patient was symptomatic and will continue course of amoxicillin BID. Type II DM Controlled while inpatient, no changes to regimen. CAD with history of PCI Continue metoprolol, lisinopril, Plavix, spironolactone, atorvastatin Dispo: discharge to [facility] today son updated by phone 04/17 Notes For Next Care Provider Medication Changes From Visit Tamiflu course amoxicillin course Admission HPI Per Admitting Provider Sofia is an 83-year-old female with a past medical history of complicated UTI, type II DM, lumbar stenosis with chronic back pain, CAD/PCI and recent discharge 03/24/2024 after an admission for UTI treated with cefdinir and low back pain which improved on steroids who presents to the emergency department with generalized weakness, fatigue, loose stools/diarrhea. Patient has a prior history of IBS however has felt more weak than normal and was not able to ambulate independently from the shower. She reports she did do well after her prior discharge up until 1 day ago when her diarrhea and fatigue got worse. Sofia seen at the bedside. She reports that around 2 days ago her baseline cough seemed to get little worse and she also developed diarrhea. Cough has been productive for little bit of white sputum she developed pain with urination and dysuria around 1 day ago, has been peeing a little bit less but notes that her were symptom is diarrhea which "just runs right through me ". Denies bloody or black bowel movements but has completely liquid stool for the last 2 days. She feels globally weak but no focal weakness. Has been a little lightheaded today. Denies chest pain, chest pressure, shortness of breath, difficulty breathing. No fevers. Denies chills. Denies abdominal pain but has had some cramping with her diarrhea. Denies flank tenderness. Medical History: Reviewed Medications: Reviewed Surgical History: Reviewed Family history: Reviewed Allergies: Reviewed Social History: Reviewed Code Status: DNR/DNI, reviewed with patient at the bedside on admission Discharge Exam General: NAD, VS as above, stting up in the chair Resp: normal respiratory effort, lungs clear to auscultation CV: RRR, no murmur, Abd: normal bowel sounds, non tender, soft Extremities: Moves all extremities, no edema Neuro: A&O x3, Skin: intact, no lesions noted Discharge Plan Discharge Items Patient Disposition: Transfer Inpatient Rehab Fac Reason For Visit: DIARRHEA, FLU Discharge Diagnosis: Flu A Activity: As commented below Activity Comment: work with therapy to get stronger Weightbearing: Full weightbearing Non-emergency contact: Primary Care Provider Call non-emergency contact if: you have any medication questions, your symptoms worsen, your pain is worsening and your temperature is above 101 Follow-up/Referrals: Markus Castillo MD [Primary Care Provider] - (f/u after discharge from [facility] ) Diet: Carb Consistent or DM2 and Heart Healthy Addtl Attending Provider Instructions: Ms. Carpenter, You were hospitalized after having weakness and diarrhea found to be from flu A. Thankfully, you are no longer requiring oxygen. Your diarrhea has improved and was not found to be infectious - you can continue to take Imodium as needed. You were treated with Tamiflu for the Flu and this should be continued at discharge. You were also found to have a UTI - continue course of amoxicillin. No changes to your diabetic regiment. Continue other home medications. Please follow up with you PCP after discharge from [facility]. Take Care Romelia Davies PA-C Pending Studies at Discharge: No Stand-Alone Forms: My [facility] Skilled Items Patient informed of condition?: Yes DNR: Yes Discharge Level of Care: Acute rehab Communicable Disease: Yes Discharge Prognosis: Stable Lines: None Urinary Catheter: No Medications and DC Order Prescriptions: New loperamide 2 mg Capsule 2 mg PO TID PRN (Reason: loose stool) Qty: 10 0RF amoxicillin 875 mg Tablet 875 mg PO BIDM 4 Days Qty: 8 0RF oseltamivir [Tamiflu] 6 mg/mL Suspension For Reconstitution 30 mg PO BID 3 Days Qty: 30 0RF Continued (DME) blood-glucose meter [OneTouch Verio Reflect Meter] Misc See Rx Instructions .Route Qty: 1 0RF Rx Instructions: As directed (DME) lancets [OneTouch Delica Plus Lancet] 33 gauge misc See Rx Instructions .ROUTE .MEDSUPPLY Qty: 400 3RF Rx Instructions: use to test 4 times daily (DME) pen needle, diabetic [BD Ultra-Fine Cris Pen Needle] 32 gauge x 5/32" needle See Rx Instructions .ROUTE .MEDSUPPLY Qty: 400 3RF Rx Instructions: use 4 per day with insulin injections methenamine hippurate 1 gram tablet 1 g PO BID Qty: 30 0RF Rx Instructions: last filled 01/28/24 90 day supply diphenoxylate-atropine [Lomotil] 2.5-0.025 mg tablet 1 tab PO DAILY Qty: 90 3RF Rx Instructions: last filled 12/08/23 90 day supply acetaminophen 325 mg tablet 325 - 650 mg PO Q6H PRN (Reason: Pain) Rx Instructions: otc unable to verify 325mg 1 -2 tabs orally every 6 hours PRN; lidocaine 4 % adhesive patch,medicated 1 patch topical DAILY PRN (Reason: Pain) Rx Instructions: otc unable to verify (DME) OneTouch Verio test strips Strip See Rx Instructions .ROUTE .MEDSUPPLY Qty: 300 3RF Rx Instructions: test 3 times daily nystatin 100,000 unit/gram powder 1 applic topical BID Qty: 30 0RF Gemtesa 75 mg tablet 75 mg PO DAILY Rx Instructions: last filled 01/29/24 90 day supply cholecalciferol (vitamin D3) 50 mcg (2,000 unit) capsule 50 mcg PO DAILY ketoconazole 2 % cream 1 applic topical BID 14 Days Qty: 30 1RF Rx Instructions: filled 03/12 30 day supply insulin glargine U-300 conc [Toujeo SoloStar U-300 Insulin] 300 unit/mL (1.5 mL) insulin pen 40 unit SUBCUT UD Rx Instructions: 40 units subcut qam; last filled in January 2024 for 9 pens for 90 day supply. No units listed on pharmacy directions per the healthcare sales representative. Women's One Daily 18 mg iron-400 mcg-500 mg Ca Tablet 1 tab PO QAM Rx Instructions: otc unable to verify PreserVision AREDS-2 250-90-40-1 mg Capsule 1 tab PO BID Rx Instructions: otc unable to verify insulin lispro [Humalog KwikPen Insulin] 100 unit/mL insulin pen 5 - 10 unit subcut UD Rx Instructions: original 5-10 units. Last filled February 2024, filled 30 pens. No units listed on pharmacy directions atorvastatin [Lipitor] 40 mg tablet 40 mg PO HS Qty: 90 3RF Rx Instructions: filled 01/28/24 90 day supply metoprolol succinate [Toprol XL] 50 mg tablet extended release 24 hr 50 mg PO QAM Qty: 90 3RF Rx Instructions: filled 03/06/23 90 day supply spironolactone [Aldactone] 25 mg tablet 12.5 mg PO DAILY Qty: 45 3RF Rx Instructions: last filled 01/28/24 90 day supply lisinopril 40 mg tablet 40 mg PO QAM Qty: 30 3RF Rx Instructions: last filled 01/28/24 90 day supply doxazosin 1 mg tablet 1 mg PO DAILY Qty: 30 2RF Rx Instructions: last filled 01/28/24 90 day supply clopidogrel [Plavix] 75 mg tablet 75 mg PO DAILY Qty: 30 3RF Rx Instructions: last filled 01/28/24 90 day supply Discharge Orders: Discharge Order (Routine); Ordered 04/18/24 Ordered By: Romelia Davies Admission Data Admit Date/Time: 04/16/24 16:02 Attending Provider: Maritza Wagner Admit Provider: Onofre Maynard Primary Care Provider: Markus Castillo V. Other Providers: Onofre Maynard; Kyaw Last [facility]; [facility]; [facility] Other Interventions: Discharge Summary Assessment (RN) Last Done: 04/18/24 15:32 Hospital Stay Data Consultations 04/16/24 16:04 ED Decision to Admit Stat Diagnostic Imagining Performed Chest X-Ray 04/16/24 12:10 XR chest 1V portable HISTORY: 83 years-old Female weakness COMPARISON: Chest CT 07/22/2023 TECHNIQUE: AP view of the chest FINDINGS: Cardiac silhouette is enlarged. Atherosclerosis of the aorta. Chronic interstitial lung disease redemonstrated. No pneumothorax, pleural effusion, or overt pulmonary edema or lobar airspace consolidation. Degenerative changes of the shoulders and spine. IMPRESSION: 1. Cardiomegaly without pulmonary edema. 2. Chronic interstitial lung disease. ACT 112: Negative or not required by law. The above report was generated using voice recognition software. It may contain grammatical, syntax or spelling errors. Electronically signed by: Jarad Valdez M.D. 04/16/2024 12:50 PM Abdomen/Pelvis CT 04/16/24 12:12 CT OF THE ABDOMEN AND PELVIS WITH CONTRAST CLINICAL HISTORY: Abdominal pain and diarrhea. COMPARISON STUDY: CT of the abdomen and pelvis July 22, 2023. TECHNIQUE: Following IV administration of 90 mL of Optiray, axial images of the abdomen and pelvis were obtained from the lung bases to the proximal femurs. Images were reviewed in the axial, sagittal, and coronal planes. IV contrast was administered without complication. Automated exposure control was utilized for the study. A dose lowering technique was utilized adhering to the principles of ALARA. CT DOSE: 1411.75 mGy.cm FINDINGS: Subpleural groundglass opacities, reticulation and traction bronchiectasis indicate interstitial lung disease within the lung bases. This is unchanged. The heart is moderately enlarged. No pneumatosis, free air or portal venous gas. There is a small hiatal hernia. There is no biliary ductal dilatation status post cholecystectomy. Liver, spleen, right adrenal gland and pancreas are unremarkable. A 1.8 cm left adrenal nodule is unchanged. There is moderate bilateral renal cortical thinning. There is no hydronephrosis. There are no urinary calculi. Moderate bladder wall thickening is present. There is adjacent stranding. There is colonic diverticulosis without evidence for acute diverticulitis. No evidence for a bowel obstruction. The colon is fluid-filled. Major vasculature is patent. There is no lymphadenopathy. No fluid collections. Old L5 compression fractures unchanged. No acute fractures within the lumbar spine, pelvis or hips. IMPRESSION: 1. No bowel obstruction. Fluid-filled colon and rectum suggestive of a diarrheal state. No bowel wall thickening. 2. Bladder wall thickening with adjacent stranding. This could be correlated with urinalysis to exclude cystitis. ACT 112: Negative or not required by law. Electronically signed by: Tristin Hilliard M.D. 04/16/2024 2:46 PM Pending Results Patient Have Any Pending Studies at Discharge: No Discharge Instructions Given to Patient (Per Discharging Provider) Ms. Carpenter, Ramiro were hospitalized after having weakness and diarrhea found to be from flu A. Thankfully, you are no longer requiring oxygen. Your diarrhea has improved and was not found to be infectious - you can continue to take Imodium as needed. You were treated with Tamiflu for the Flu and this should be continued at discharge. You were also found to have a UTI - continue course of amoxicillin. No changes to your diabetic regiment. Continue other home medications. Please follow up with you PCP after discharge from [facility]. Take Care Romelia Davies PA-C Supervising Physician Co-Signing Physician Notes PA Supervision Note: I did not personally see or examine the patient today, but I verified all akers points of EMETERIO Davies's assessment and plan with the following exc eptions/additions: None Total Time Total Time Spent Total Time Spent (In Minutes): Time spent day of discharge 40 minutes including direct patient care, medication reconciliation, documentation, review of labs and images, and coordination of care. discussed with CM Coding Level of Care Code 64669 INP/OBS DISCH >30 MIN Diagnoses Influenza A virus subtype H1 2009 pandemic strain present J10.1 UTI (urinary tract infection) N39.0
== END 2024-04-18 18:53 | DRG 865 ==
LOC: ED 10:05 → 3E 16:02 → SUATTDRO 16:02 → 3E 18:26

== ENCOUNTER 2024-09-17 19:22 | Inpatient (IN) ==
[2024-09-17 19:53] LABS: Hematocrit (blood only) 39.7 % (37.0-47.0); Hemoglobin 13.4 g/dl (12.0-16.0); Immature Granulocytes # (auto) 0.09 K/uL (0.01-0.20); Immature Granulocytes % (auto) 0.8 %; Mean Corpuscular Hemoglobin 30.1 pg (25.0-34.0); Mean Corpuscular Volume 89.2 fL (80.0-100.0); Platelet Count 222 K/uL (130-400); RDW Standard Deviation 42.2 fL (36.4-46.3); Red Blood Count 4.45 M/uL (4.20-5.40); White Blood Count 11.08 K/ul (4.8-10.8)
[2024-09-17 20:11] LABS: Alanine Aminotransferase 30.0 U/L (7-52); Albumin Globulin Ratio 1.0 (0.9-2); Alkaline Phosphatase 52.0 U/L (34-104); Anion Gap 8.0 (3-11); Bilirubin,Total 0.6 mg/dl (0.2-1.0); Blood Urea Nitrogen 32.0 mg/dl (6-23); Calcium 10.0 mg/dl (8.6-10.3); Carbon Dioxide 27.0 mmol/L (21-32); Chloride 104.0 mmol/L (98-107); Creatinine Clr Calc Pharmacy 40.8 ml/min; Globulin 3.9 gm/dl (2.5-4.0); Glucose 186.0 mg/dl (70-99(Fasting)); Lipase 28.0 U/L (11-82); Potassium 4.2 mmol/L (3.5-5.1); Sodium 139.0 mmol/L (136-145); Total Protein 7.8 gm/dl (6.0-8.3)
[2024-09-17] MEDS: OPTIRAY 320 100ml IV ONE (20:11)
--- NOTE | 2024-09-17 20:27 | CT Scan Report ---
Exam(s): CT HEAD Without Contrast EXAM: CT Head Without Intravenous Contrast CLINICAL HISTORY: Reason for exam: Trauma. TECHNIQUE: Axial computed tomography images of the head/brain without intravenous contrast. CTDI is 35.79 mGy and DLP is 624.41 mGy-cm. Automated exposure control was utilized for the study. A dose lowering technique was utilized adhering to the principles of ALARA. Mild motion artifact. COMPARISON: Head CT 12/19/2023. FINDINGS: Brain: No mass effect or acute infarct. No acute hemorrhage. Mild atrophy and chronic white matter disease, stable. Ventricles: No hydrocephalus or midline shift. Bones/joints: No skull fracture. Soft tissues: No scalp hematoma. Visualized Sinuses: Clear. Mastoid air cells: No mastoid effusion. IMPRESSION: 1. Stable age-related findings. 2. No skull fracture, bleed, or acute intracranial abnormality. Electronically signed by: Carly Velez M.D. 09/17/24 20:26 PM
--- NOTE | 2024-09-17 20:29 | XRay Report ---
EXAM: Portable AP chest radiograph TECHNIQUE: AP portable radiograph of the chest was obtained. INDICATION: Trauma Comparison: Chest radiograph April 16, 2024. FINDINGS: LINES and TUBES: None CARDIOVASCULAR: Cardiac silhouette is stably enlarged in size. LUNGS/PLEURA: Pulmonary vascular congestion and chronic interstitial lung changes are seen. No focal consolidation identified. Small pleural fluids could be present. No discernible pneumothorax. OSSEOUS/OTHER: No displaced acute osseous process identified. IMPRESSION: Congestive changes of the cardiovascular system. Electronically signed by Hardeep Lo 09-17-2024 8:29 PM
--- NOTE | 2024-09-17 20:30 | CT Scan Report ---
Exam(s): CT C SPINE EXAM: CT Cervical Spine Without Intravenous Contrast CLINICAL HISTORY: Reason for exam: Trauma. TECHNIQUE: Axial computed tomography images of the cervical spine without intravenous contrast. CTDI is 26.46 mGy and DLP is 473.28 mGy-cm. Automated exposure control was utilized for the study. A dose lowering technique was utilized adhering to the principles of ALARA. COMPARISON: CT cervical spine 12/19/2023. FINDINGS: Vertebrae: No acute fracture. Probable osteoporosis. Discs/spinal canal/neural foramina: Severe, fairly isolated degenerative disc disease C5-6. Diffuse and severe facet hypertrophy. Findings are stable. Soft tissues: Unremarkable. IMPRESSION: 1. Stable osteoporosis and degenerative change. 2. No fracture or acute bony abnormality. Electronically signed by: Carly Velez M.D. 09/17/24 20:29 PM
[2024-09-17 20:39] LABS: INR 1.0 (0.9-1.1); Partial Thromboplastin Time 26 Seconds (21-31); Prothrombin Time 11.3 Seconds (9.0-12.0)
--- NOTE | 2024-09-17 20:53 | XRay Report ---
REASON FOR EXAM: The patient is presenting with a history of trauma. Exam: X-ray pelvis one to 2 views routine Previous studies: 02/06/2023: Findings: Single AP frontal view of the pelvis is submitted. Mild DJD seen in both hips. Some osteoporosis is present. Sacroiliac joints unremarkable. No acute fracture, dislocation or destructive bony process is visible. IMPRESSION: Negative for acute bony trauma on limited AP view of the pelvis. Should posttraumatic symptoms of pain persist, more sensitive evaluation with CT study would be recommended. Electronically signed by Donaldo Palacio 09-17-2024 8:52 PM
--- NOTE | 2024-09-17 21:16 | CT Scan Report ---
Exam(s): CT ABDOMEN + PELVIS With Contrast IV Amt: 90 ml optiray 320 EXAM: CT Abdomen and Pelvis With Intravenous Contrast CLINICAL HISTORY: Reason for exam: trauma. TECHNIQUE: Axial computed tomography images of the abdomen and pelvis with intravenous contrast. CTDI is 34.88 mGy and DLP is 1639.62 mGy-cm. Automated exposure control was utilized for the study. A dose lowering technique was utilized adhering to the principles of ALARA. Mild-to- moderate artifact from body habitus, arms in the field of view an external metal. CONTRAST: Patient received 90 ml optiray 320 of IV contrast COMPARISON: CT abdomen pelvis 04/16/2024. FINDINGS: Lung bases: Moderate cardiomegaly. Moderate vascular and interstitial prominence, progressed, nonspecific, can not rule out CHF, pneumonia, and/or edema, though this could reflect chronic disease as well. Liver: Fatty. Minimal intrahepatic ductal dilatation, stable. Gallbladder and bile ducts: Cholecystectomy. No ductal dilation. Pancreas: No ductal dilation, or acute pancreatitis. Spleen: Unremarkable. Adrenals: Stable 17 mm left adrenal nodule.. Kidneys and ureters: Dilated extrarenal pelvis on the left, stable. No pyelonephritis or hydronephrosis. Stomach and bowel: No obstruction. Appendix: No acute appendicitis. Intraperitoneal space: No free air or fluid. Bones/joints: No acute fracture. Soft tissues: Unremarkable. Vasculature: No aortic aneurysm. Lymph nodes: No enlarged lymph nodes. Bladder: Moderate wall thickening and haziness, probable cystitis, correlate clinically. Reproductive: Unremarkable as visualized. IMPRESSION: 1. Probable cystitis. 2. Cardiomegaly with progressive vascular/interstitial thickening that is nonspecific, probable CHF and/or pneumonia. 3. Stable left adrenal nodule. Electronically signed by: Carly Velez M.D. 09/17/24 21:14 PM
[2024-09-17 21:28] LABS: Appearance Urine Turbid (Clear); Bacteria Urine Automated None Seen (None Seen); Glucose Urine UA Negative (Negative); WBC Urine Automated >50 /hpf (0-5)
--- NOTE | 2024-09-17 22:19 | XRay Report ---
Exam(s): XR RIGHT HUMERUS, 2+ views EXAM: XR Right Humerus, 2 or More Views CLINICAL HISTORY: Reason for exam: trauma. TECHNIQUE: Frontal and lateral views of the right humerus. COMPARISON: No relevant prior studies available. FINDINGS: Bones/joints: There are degenerative changes about the shoulder including the acromioclavicular and glenohumeral joint. Probable osteoporosis. No acute fracture. No dislocation. Soft tissues: Unremarkable. IMPRESSION: 1. Degenerative change about the shoulder. 2. No fracture or acute bony abnormality. Electronically signed by: Carly Velez M.D. 09/17/24 22:18 PM
--- NOTE | 2024-09-17 22:25 | XRay Report ---
Exam(s): XR SHOULDER, 2+ views EXAM: XR Right Shoulder Complete, 2 or More Views CLINICAL HISTORY: Reason for exam: trauma. TECHNIQUE: Two or more views of the right shoulder. COMPARISON: None. Previous left shoulder x-ray 2023. FINDINGS: Bones/joints: Degenerative change about the shoulder involving the acromioclavicular and glenohumeral joints. No acute fracture. No dislocation. Soft tissues: Mild interstitial thickening in the visualized lung, nonspecific, may be chronic. Mild pneumonia not excluded. IMPRESSION: 1. No fracture or acute bony abnormality. 2. Mild interstitial thickening in the visualized right lung, nonspecific, may be chronic. Can not rule out mild pneumonia. Electronically signed by: Carly Velez M.D. 09/17/24 22:23 PM
--- NOTE | 2024-09-17 22:26 | XRay Report ---
Exam(s): XR T SPINE, 3 views EXAM: XR Thoracic Spine, 3 Views CLINICAL HISTORY: Reason for exam: trauma. TECHNIQUE: Frontal, lateral and swimmer's views of the thoracic spine. COMPARISON: No relevant prior studies available. FINDINGS: Vertebrae: Multilevel, chronic endplate flattening. No acute fracture. Normal alignment. Probable osteoporosis. Disc spaces: Moderate degenerative disc disease and facet hypertrophy. Soft tissues: Residual contrast in the renal collecting system from CT abdomen pelvis done earlier the same day. Cardiomegaly. Scattered vascular and interstitial prominence, not well evaluated on thoracic spine technique. IMPRESSION: 1. Osteoporosis and degenerative change. 2. No fracture or acute bony abnormality. Electronically signed by: Carly Velez M.D. 09/17/24 22:25 PM
--- NOTE | 2024-09-17 22:29 | XRay Report ---
Exam(s): XR L SPINE, 4-5 views EXAM: XR Lumbosacral Spine, 4 or 5 Views CLINICAL HISTORY: Reason for exam: trauma. TECHNIQUE: Frontal, lateral and bilateral oblique views of the lumbar spine. COMPARISON: CT abdomen pelvis, same day. FINDINGS: Vertebrae: Moderate superior endplate compression L5, age indeterminate, probably chronic, given appearance on CT done earlier the same day.. Probable osteoporosis. Normal alignment. Sacrum/coccyx: Unremarkable as visualized. No acute fracture. Disc spaces: Severe degenerative disc disease L4-5 with milder degenerative change at the remaining levels. Diffuse facet hypertrophy. Soft tissues: Severe fecal loading of the cecum. Residual contrast in the collecting system from CT done earlier the same day. IMPRESSION: 1. Moderate superior endplate compression L5, age indeterminate, probably chronic. 2. If there is continued clinical concern, MRI may be performed for further evaluation. Electronically signed by: Carly Velez M.D. 09/17/24 22:28 PM
--- NOTE | 2024-09-17 22:59 | Emergency Department Note ---
History of Present Illness General Chief complaint: Trauma Time Seen by Provider: 09/17/24 19:27 History of Present Illness Provider complaint: Trauma Maximum Pain Intensity: 6 83-year-old female presents emergency department for fall. 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 Patient landed backwards. Patient is reporting pain in her back. Patient's fall occurred less than 2 hours ago. Home Medications Medication Instructions Recorded Confirmed Type OneTouch Verio Reflect Meter #1 ea 08/05/21 09/17/24 Rx (blood-glucose meter) OneTouch Delica Plus Lancet 33 #400 ea 07/28/22 09/17/24 Rx gauge (lancets) vit C 250 mg-vit E 90 mg-zinc 40 1 tab PO BID 08/17/22 09/17/24 History mg-copper 1 [id number] capsule (PreserVision AREDS-2) pen needle, diabetic 32 gauge x #400 ea 05/16/23 09/17/24 Rx 5/32" (BD Ultra-Fine Cris Pen Needle) ketoconazole 2 % topical cream 1 applic topical BID 2 weeks #30 01/17/24 09/17/24 Rx grams benzonatate 100 mg capsule 100 mg PO TID PRN Cough 05/20/24 09/17/24 History ergocalciferol (vitamin D2) 50 mcg 50 mcg PO DAILY 05/20/24 09/17/24 History (2,000 unit) capsule ondansetron HCl 4 mg tablet 4 mg PO Q4 PRN Nausea And Vomiting 05/20/24 09/17/24 History OneTouch Verio test strips (blood #300 ea 05/29/24 09/17/24 Rx sugar diagnostic) triamcinolone acetonide 0.1 % 1 applic topical BID #30 grams 05/29/24 09/17/24 Rx topical cream duloxetine 60 mg capsule,delayed 60 mg PO DAILY #30 caps 07/16/24 09/17/24 Rx release metoprolol succinate 50 mg 50 mg PO QAM #90 tabs 07/16/24 09/17/24 Rx tablet,extended release 24 hr (Toprol XL) atorvastatin 40 mg tablet (Lipitor) 40 mg PO HS #90 tabs 07/17/24 09/17/24 Rx methenamine hippurate 1 gram tablet 1 g PO BID #180 tabs 07/23/24 09/17/24 Rx cranberry 500 mg capsule 500 mg PO QAM 08/04/24 09/17/24 History hydroxyzine HCl 10 mg tablet 10 mg PO BID 08/04/24 09/17/24 History L.acid,par,plant,rham-B.anim,bif,brev,inf,long 1 cap PO DAILY 09/17/24 09/17/24 History 30 billion cell capsule (Probiotic Digestive Health) clopidogrel 75 mg tablet (Plavix) 75 mg PO QAM 09/17/24 09/17/24 History doxazosin 1 mg tablet 1 mg PO QAM 09/17/24 09/17/24 History insulin glargine U-300 conc 300 40 unit subcut QAM 09/17/24 09/17/24 History unit/mL (3 mL) subcutaneous pen (Toujeo Max U-300 SoloStar) insulin lispro 100 unit/mL 10 unit subcut TID 09/17/24 09/17/24 History subcutaneous pen (Humalog KwikPen (U-100) Insulin) lidocaine 5 % topical patch 1 patch topical DAILY Pain 09/17/24 09/17/24 History lisinopril 20 mg tablet 20 mg PO QAM 09/17/24 09/17/24 History loperamide 2 mg tablet (Imodium 2 mg PO Q8 PRN Diarrhea 09/17/24 09/17/24 History A-D) metoprolol succinate 50 mg 50 mg PO QPM 09/17/24 09/17/24 History tablet,extended release 24 hr multivitamin with minerals 1 tab PO DAILY 09/17/24 09/17/24 History spironolactone 25 mg tablet 12.5 mg PO QAM 09/17/24 09/17/24 History (Aldactone) vibegron 75 mg tablet (Gemtesa) 75 mg PO QAM 09/17/24 09/17/24 History Allergies Allergy/AdvReac Type Severity Reaction Status Date / Time dapsone Allergy Intermediate Rash Verified 08/25/24 15:07 Sulfa (Sulfonamide Allergy Mild Unknown Verified 08/25/24 15:07 Antibiotics) latex Allergy Unknown Unknown Verified 08/25/24 15:07 ciprofloxacin AdvReac Intermediate "i blew up Verified 08/25/24 15:07 like a balloon" per pt adhesive AdvReac Unknown Unknown Verified 08/25/24 15:07 metronidazole [From Flagyl] AdvReac Unknown Unknown Verified 08/25/24 15:07 red dye AdvReac Unknown Unknown Verified 08/25/24 15:07 Past Med/Surg History Problem List Fall (Acute) Diabetic nephropathy associated with type 2 diabetes mellitus Persistent microalbuminuria associated with type 2 diabetes mellitus Pressure ulcer Gait apraxia Pyelonephritis (Acute) Right sided sciatica (Acute) Abdominal pain, lower (Acute) Tiredness Hypertension Dermatitis Low back pain Overactive bladder Hypomagnesemia (Acute) Lumbar contusion (Acute) Left leg weakness (Acute) Nonproliferative diabetic retinopathy Diabetic peripheral neuropathy Stented coronary artery Loss of protective sensation of skin of foot H/O: stroke with residual effects Albuminuria Recurrent UTI (urinary tract infection) Urine incontinence (Chronic) Age-related cognitive decline (Chronic) Diabetic peripheral neuropathy associated with type 2 diabetes mellitus (Acute) Gait disturbance (Acute) Nephrolithiasis (Acute) Neuropathic pain of both feet (Acute) Vitamin D deficiency disease (Acute) Medical History Influenza A Closed compression fracture of lumbar vertebra (~2019) a chronic superior endplate compression fracture deformity of L5 per the MRI from 03/22/24 Type 2 diabetes mellitus with insulin therapy Hyperlipidemia IBS (irritable bowel syndrome) Spinal stenosis, lumbar region with neurogenic claudication Stroke-like symptom Numbness of left hand Humerus fracture Balance problem Stroke Fall Abnormal thyroid blood test Localized swelling of both lower legs Hypoglycemia Lupus Closed left humeral fracture (07/22/23) from a fall Interstitial lung disease Diabetes mellitus type 2, uncontrolled CAD (coronary artery disease) Hypertension Contact dermatitis Chronic cough Rash Herpes zoster, ocular Contusion of leg, left Gross hematuria Physical deconditioning Expressive aphasia Chronic diarrhea Spinal stenosis of lumbar region Cerebrovascular disease Family history of dementia Neurogenic claudication due to lumbar spinal stenosis Arm DVT (deep venous thromboembolism), acute Mitral regurgitation Recurrent UTI Hx of renal calculi C. difficile colitis Surgical History History of lithotripsy S/P cardiac catheterization Hx of cholecystectomy Family History Mother Alzheimer disease Hypertension Brother Diabetes Myocardial infarction Father Hypertension Sister Lung cancer Other Family history non-contributory Stroke Denies family history of Ovarian cancer Prostate cancer Breast cancer Colorectal cancer Social History Smoking Status: Never smoker Second Hand Exposure: No; Do You Dip or Chew Tobacco: No; Hx Alcohol Use: No Hx Substance Use: No Preferred Language: Indonesian Communication Ability: Effective Visual Impairment: No Limitations Hearing Ability: Normal Assembler Adjuster Required: No Beliefs That Will Affect Care: None marital status: / Current Living Situation: Alone Current Living Situation Comment: Daughter in law helps patient with care current occupational status: retired Feels Safe at Home: Yes Childhood Exposure to Second-Hand Smoke: No Dental Care, Regularly: No Physical Activity Frequency: Does not Exercise Seatbelt Use: always Sunscreen Use: No Assistive Devices: Walker Physical Exam Vital Signs Vital Signs - 24 hr 09/17/24 19:27 09/17/24 19:30 09/17/24 19:33 Temperature 36.8 C 36.8 C Temperature Source Oral Pulse Rate 71 69 Pulse Rate [Apical] Pulse Rate from SpO2 Sensor Respiratory Rate 26 H 24 Respiratory Effort / Characteristics Respiratory Depth Respiratory Pattern Blood Pressure 201/112 H 197/100 H 201/112 H Blood Pressure [Left Arm] Blood Pressure Mean 141 123 Blood Pressure Mean [Left Arm] Blood Pressure Position [Left Arm] Pulse Oximetry 93 Oxygen Delivery Method Room Air Oxygen Flow Rate 0 Sepsis Recent Fever Within 48 Hours No Sepsis New/Unexplained Change in Mental Status No Sepsis Action Taken by Nursing No Action Required 09/17/24 19:39 09/17/24 19:39 09/17/24 19:53 Temperature Temperature Source Pulse Rate 72 Pulse Rate [Apical] 72 Pulse Rate from SpO2 Sensor Respiratory Rate 19 22 Respiratory Effort / Characteristics Non-Labored Spontaneous Respiratory Depth Normal Respiratory Pattern Regular Blood Pressure 188/93 H Blood Pressure [Left Arm] 188/93 H Blood Pressure Mean 111 Blood Pressure Mean [Left Arm] 124 Blood Pressure Position [Left Arm] Pulse Oximetry 93 93 Oxygen Delivery Method Room Air Room Air Oxygen Flow Rate Sepsis Recent Fever Within 48 Hours Sepsis New/Unexplained Change in Mental Status Sepsis Action Taken by Nursing 09/17/24 19:53 09/17/24 20:03 09/17/24 20:03 Temperature Temperature Source Pulse Rate Pulse Rate [Apical] 70 Pulse Rate from SpO2 Sensor Respiratory Rate 24 Respiratory Effort / Characteristics Non-Labored Spontaneous Respiratory Depth Normal Respiratory Pattern Regular Blood Pressure 197/100 H 191/93 H Blood Pressure [Left Arm] 191/93 H Blood Pressure Mean 117 107 Blood Pressure Mean [Left Arm] 125 Blood Pressure Position [Left Arm] Pulse Oximetry 93 Oxygen Delivery Method Room Air Oxygen Flow Rate Sepsis Recent Fever Within 48 Hours Sepsis New/Unexplained Change in Mental Status Sepsis Action Taken by Nursing 09/17/24 20:03 09/17/24 20:08 09/17/24 20:12 Temperature Temperature Source Pulse Rate 71 Pulse Rate [Apical] 72 Pulse Rate from SpO2 Sensor 72 Respiratory Rate 25 H 22 Respiratory Effort / Characteristics Non-Labored Spontaneous Respiratory Depth Normal Respiratory Pattern Regular Blood Pressure 184/92 H Blood Pressure [Left Arm] 177/99 H Blood Pressure Mean 129 Blood Pressure Mean [Left Arm] 125 Blood Pressure Position [Left Arm] Pulse Oximetry 92 94 Oxygen Delivery Method Room Air Oxygen Flow Rate Sepsis Recent Fever Within 48 Hours Sepsis New/Unexplained Change in Mental Status Sepsis Action Taken by Nursing 09/17/24 20:21 09/17/24 20:26 09/17/24 20:29 Temperature Temperature Source Pulse Rate 80 73 Pulse Rate [Apical] Pulse Rate from SpO2 Sensor 80 Respiratory Rate 26 H Respiratory Effort / Characteristics Respiratory Depth Respiratory Pattern Blood Pressure 184/74 H Blood Pressure [Left Arm] Blood Pressure Mean 89 Blood Pressure Mean [Left Arm] Blood Pressure Position [Left Arm] Pulse Oximetry 90 Oxygen Delivery Method Oxygen Flow Rate Sepsis Recent Fever Within 48 Hours Sepsis New/Unexplained Change in Mental Status Sepsis Action Taken by Nursing 09/17/24 20:30 09/17/24 22:00 09/17/24 23:26 Temperature Temperature Source Pulse Rate Pulse Rate [Apical] 74 71 Pulse Rate from SpO2 Sensor Respiratory Rate 18 20 Respiratory Effort / Characteristics Non-Labored Spontaneous Respiratory Depth Normal Respiratory Pattern Regular Blood Pressure 177/99 H Blood Pressure [Left Arm] 179/99 H 190/89 H Blood Pressure Mean 118 Blood Pressure Mean [Left Arm] 125 122 Blood Pressure Position [Left Arm] Semi-fowlers Pulse Oximetry 91 93 Oxygen Delivery Method Room Air Room Air Oxygen Flow Rate Sepsis Recent Fever Within 48 Hours Sepsis New/Unexplained Change in Mental Status Sepsis Action Taken by Nursing Primary Survey Airway: Intact Breathing: Normal, breath sounds equal bilaterally Circulation: Skin warm, distal pulses 2+, capillary refill less than 2 seconds Disability Pupils: Equal and reactive to light, 2 mm, brisk GCS: 15, E = 4 V=5 M= 6 Motor Function: Moves all extremities. Sensory: No deficits Secondary Survey GEN: Well developed and well-nourished HEAD: Normocephallic atruamatic EYES: Pupils round reactive to light, conjunctiva clear, extraocular movements intact, no raccoons eyes ENT: no hilario's sign, nares patent, oropharynx clear NECK: No JVD, midline trachea, no cervical spine tenderness HEART: Regular rate and rhythm LUNGS: Clear to auscultation bilaterally. CHEST: Chest wall non-tender, no bruising/deformity ABD: soft, non-tender, no rebound or guarding, MUSC: Pelvis stable. Pain on palpation of the T and L-spine as well as the right and left thoracic and lumbar paraspinal muscles. Pain on palpation of the left shoulder and left proximal humerus. NEURO: CNII-XII grossly intact, no sensory deficits Course Course 1926: The patient was evaluated in room B1. A complete history and physical exam was performed Cardiac monitoring: An order was placed for continuous cardiac monitoring. The monitor shows a rate of 70 with sinus rhythm interpreted by ky 2300: Vital signs stable. Labs are unremarkable. Imaging shows no acute traumatic injury. Patient be discharged back to her assisted care living facility. Case management will try to assist with transport. 2325: Patient reporting pain with movement and staff and patient are concerned that she will fall again if discharged back. Patient will be admitted due to fall for pain control and physical therapy eval. Administered Medications Discontinued Medications Ioversol (Optiray 320 100ml) 90 ml IV ONCE ONE Stop: 09/17/24 20:12 Last Admin: 09/17/24 20:11 Dose: 90 ml Documented By: SERGIO Tramadol HCl (Tramadol Hcl 50 Mg Tablet) 50 mg PO NOW STA Stop: 09/17/24 23:00 Last Admin: 09/17/24 23:10 Dose: 50 mg Documented By: TULIO Medical Decision Making Laboratory Data Attestation: I reviewed the patient's lab results. 09/17/24 19:38 09/17/24 19:38 Lab Results 09/17/24 09/17/24 09/17/24 Range/Units 19:38 19:39 20:55 WBC 11.08 H (4.8-10.8) K/ul RBC 4.45 (4.20-5.40) M/uL Hgb 13.4 (12.0-16.0) g/dl POC Hgb 13.9 (12.0-16.0) g/dl Hct 39.7 (37.0-47.0) % POC Hct 41 (37-47) % MCV 89.2 (80.0-100.0) fL MCH 30.1 (25.0-34.0) pg MCHC 33.8 (32.0-36.0) g/dL RDW Std Deviation 42.2 (36.4-46.3) fL RDW Coeff of Linda 13.0 (11.5-14.5) % Plt Count 222 (130-400) K/uL MPV 10.1 (9.4-12.4) fL Immature Gran % (Auto) 0.8 % Neut % (Auto) 68.5 % Lymph % (Auto) 20.4 % [place] % (Auto) 8.3 % Eos % (Auto) 1.6 % Baso % (Auto) 0.4 % Neut # (Auto) 7.59 H (1.40-6.50) K/uL Lymph # (Auto) 2.26 (1.20-3.40) K/uL [place] # (Auto) 0.92 H (0.11-0.59) K/uL Eos # (Auto) 0.18 (0.00-0.50) K/uL Baso # (Auto) 0.04 (0.00-0.20) K/uL Immature Gran # (Auto) 0.09 (0.01-0.20) K/uL PT 11.3 (9.0-12.0) Seconds INR 1.0 (0.9-1.1) APTT 26 (21-31) Seconds PTT Ratio 1.0 POC Sodium 141 (135-144) mmol/L Sodium 139 (136-145) mmol/L POC Potassium 4.3 (3.3-5.0) mmol/L Potassium 4.2 (3.5-5.1) mmol/L POC Chloride 104 (101-112) mmol/L Chloride 104 (98-107) mmol/L Carbon Dioxide 27 (21-32) mmol/L POC Total CO2 26 (24-31) mmol/L Anion Gap 8 (3-11) POC Anion Gap 17.0 (16-25) mmol/L POC BUN 34 H (7-18) mg/dl BUN 32 H (6-23) mg/dl Creatinine 0.96 (0.6-1.2) mg/dl POC Creatinine 1.0 (0.6-1.3) mg/dl Est Cr Clr Drug Dosing 40.8 ml/min eGFR 58.71 BUN/Creatinine Ratio 33.3 H (10-20) Glucose 186 H (70-99(Fasting)) mg/dl POC Glucose (other) 178 H (70-99) mg/dl Calcium 10.0 (8.6-10.3) mg/dl POC Ioniz Calcium Macy 1.22 (1.12-1.32) mmol/l Total Bilirubin 0.6 (0.2-1.0) mg/dl AST 28 (13-39) U/L ALT 30 (7-52) U/L Alkaline Phosphatase 52 (34-104) U/L Total Protein 7.8 (6.0-8.3) gm/dl Albumin 3.9 (3.4-5.0) gm/dl Globulin 3.9 (2.5-4.0) gm/dl Albumin/Globulin Ratio 1.0 (0.9-2) Lipase 28 (11-82) U/L Urine Color Yellow Urine Appearance Turbid A (Clear) Urine pH 5.5 (4.5-7.5) Ur Specific [place] 1.033 H (1.000-1.030) Urine Protein 1+ H (Negative) Urine Glucose (UA) Negative (Negative) Urine Ketones Negative (Negative) Urine Blood 2+ H (Negative) Urine Nitrite Negative (Negative) Urine Bilirubin Negative (Negative) Urine Urobilinogen Negative (Negative) Ur Leukocyte Esterase 3+ H (Negative) Urine WBC (Auto) >50 H (0-5) /hpf Urine RBC (Auto) 6-10 H (0-2) /hpf U Hyaline Cast (Auto) 3-5 H (0-2) /lpf U Epithel Cells (Auto) 11-20 H (0-2) /hpf Urine Bacteria (Auto) None Seen (None Seen) Urine Yeast Present A (None Prsent) Urine Comment Imaging Data Attestation: I personally reviewed and interpreted this imaging study as follows: My Impression: Pelvis x-ray: No acute fracture or dislocation Radiologist's Impression: Chest X-Ray 09/17/24 19:27 EXAM: Portable AP chest radiograph TECHNIQUE: AP portable radiograph of the chest was obtained. INDICATION: Trauma Comparison: Chest radiograph April 16, 2024. FINDINGS: LINES and TUBES: None CARDIOVASCULAR: Cardiac silhouette is stably enlarged in size. LUNGS/PLEURA: Pulmonary vascular congestion and chronic interstitial lung changes are seen. No focal consolidation identified. Small pleural fluids could be present. No discernible pneumothorax. OSSEOUS/OTHER: No displaced acute osseous process identified. IMPRESSION: Congestive changes of the cardiovascular system. Electronically signed by Hardeep Lo 09-17-2024 8:29 PM Lumbar Spine X-Ray 09/17/24 19:27 Exam(s): XR L SPINE, 4-5 views EXAM: XR Lumbosacral Spine, 4 or 5 Views CLINICAL HISTORY: Reason for exam: trauma. TECHNIQUE: Frontal, lateral and bilateral oblique views of the lumbar spine. COMPARISON: CT abdomen pelvis, same day. FINDINGS: Vertebrae: Moderate superior endplate compression L5, age indeterminate, probably chronic, given appearance on CT done earlier the same day.. Probable osteoporosis. Normal alignment. Sacrum/coccyx: Unremarkable as visualized. No acute fracture. Disc spaces: Severe degenerative disc disease L4-5 with milder degenerative change at the remaining levels. Diffuse facet hypertrophy. Soft tissues: Severe fecal loading of the cecum. Residual contrast in the collecting system from CT done earlier the same day. IMPRESSION: 1. Moderate superior endplate compression L5, age indeterminate, probably chronic. 2. If there is continued clinical concern, MRI may be performed for further evaluation. Electronically signed by: Carly Velez M.D. 09/17/24 22:28 PM Pelvis X-Ray 09/17/24 19:27 REASON FOR EXAM: The patient is presenting with a history of trauma. Exam: X-ray pelvis one to 2 views routine Previous studies: 02/06/2023: Findings: Single AP frontal view of the pelvis is submitted. Mild DJD seen in both hips. Some osteoporosis is present. Sacroiliac joints unremarkable. No acute fracture, dislocation or destructive bony process is visible. IMPRESSION: Negative for acute bony trauma on limited AP view of the pelvis. Should posttraumatic symptoms of pain persist, more sensitive evaluation with CT study would be recommended. Electronically signed by Donaldo Palacio 09-17-2024 8:52 PM Thoracic Spine X-Ray 09/17/24 19:27 Exam(s): XR T SPINE, 3 views EXAM: XR Thoracic Spine, 3 Views CLINICAL HISTORY: Reason for exam: trauma. TECHNIQUE: Frontal, lateral and swimmer's views of the thoracic spine. COMPARISON: No relevant prior studies available. FINDINGS: Vertebrae: Multilevel, chronic endplate flattening. No acute fracture. Normal alignment. Probable osteoporosis. Disc spaces: Moderate degenerative disc disease and facet hypertrophy. Soft tissues: Residual contrast in the renal collecting system from CT abdomen pelvis done earlier the same day. Cardiomegaly. Scattered vascular and interstitial prominence, not well evaluated on thoracic spine technique. IMPRESSION: 1. Osteoporosis and degenerative change. 2. No fracture or acute bony abnormality. Electronically signed by: Carly Velez M.D. 09/17/24 22:[address] 09/17/24 19:28 Exam(s): CT C SPINE EXAM: CT Cervical Spine Without Intravenous Contrast CLINICAL HISTORY: Reason for exam: Trauma. TECHNIQUE: Axial computed tomography images of the cervical spine without intravenous contrast. CTDI is 26.46 mGy and DLP is 473.28 mGy-cm. Automated exposure control was utilized for the study. A dose lowering technique was utilized adhering to the principles of ALARA. COMPARISON: CT cervical spine 12/19/2023. FINDINGS: Vertebrae: No acute fracture. Probable osteoporosis. Discs/spinal canal/neural foramina: Severe, fairly isolated degenerative disc disease C5-6. Diffuse and severe facet hypertrophy. Findings are stable. Soft tissues: Unremarkable. IMPRESSION: 1. Stable osteoporosis and degenerative change. 2. No fracture or acute bony abnormality. Electronically signed by: Carly Velez M.D. 09/17/24 20:[address] 09/17/24 19:28 Exam(s): CT HEAD Without Contrast EXAM: CT Head Without Intravenous Contrast CLINICAL HISTORY: Reason for exam: Trauma. TECHNIQUE: Axial computed tomography images of the head/brain without intravenous contrast. CTDI is 35.79 mGy and DLP is 624.41 mGy-cm. Automated exposure control was utilized for the study. A dose lowering technique was utilized adhering to the principles of ALARA. Mild motion artifact. COMPARISON: Head CT 12/19/2023. FINDINGS: Brain: No mass effect or acute infarct. No acute hemorrhage. Mild atrophy and chronic white matter disease, stable. Ventricles: No hydrocephalus or midline shift. Bones/joints: No skull fracture. Soft tissues: No scalp hematoma. Visualized Sinuses: Clear. Mastoid air cells: No mastoid effusion. IMPRESSION: 1. Stable age-related findings. 2. No skull fracture, bleed, or acute intracranial abnormality. Electronically signed by: Carly Velez M.D. 09/17/24 20:26 PM Abdomen/Pelvis CT 09/17/24 20:06 Exam(s): CT ABDOMEN + PELVIS With Contrast IV Amt: 90 ml optiray 320 EXAM: CT Abdomen and Pelvis With Intravenous Contrast CLINICAL HISTORY: Reason for exam: trauma. TECHNIQUE: Axial computed tomography images of the abdomen and pelvis with intravenous contrast. CTDI is 34.88 mGy and DLP is 1639.62 mGy-cm. Automated exposure control was utilized for the study. A dose lowering technique was utilized adhering to the principles of ALARA. Mild-to- moderate artifact from body habitus, arms in the field of view an external metal. CONTRAST: Patient received 90 ml optiray 320 of IV contrast COMPARISON: CT abdomen pelvis 04/16/2024. FINDINGS: Lung bases: Moderate cardiomegaly. Moderate vascular and interstitial prominence, progressed, nonspecific, can not rule out CHF, pneumonia, and/or edema, though this could reflect chronic disease as well. Liver: Fatty. Minimal intrahepatic ductal dilatation, stable. Gallbladder and bile ducts: Cholecystectomy. No ductal dilation. Pancreas: No ductal dilation, or acute pancreatitis. Spleen: Unremarkable. Adrenals: Stable 17 mm left adrenal nodule.. Kidneys and ureters: Dilated extrarenal pelvis on the left, stable. No pyelonephritis or hydronephrosis. Stomach and bowel: No obstruction. Appendix: No acute appendicitis. Intraperitoneal space: No free air or fluid. Bones/joints: No acute fracture. Soft tissues: Unremarkable. Vasculature: No aortic aneurysm. Lymph nodes: No enlarged lymph nodes. Bladder: Moderate wall thickening and haziness, probable cystitis, correlate clinically. Reproductive: Unremarkable as visualized. IMPRESSION: 1. Probable cystitis. 2. Cardiomegaly with progressive vascular/interstitial thickening that is nonspecific, probable CHF and/or pneumonia. 3. Stable left adrenal nodule. Electronically signed by: Carly Velez M.D. 09/17/24 21:14 PM Humerus X-Ray 09/17/24 20:32 Exam(s): XR RIGHT HUMERUS, 2+ views EXAM: XR Right Humerus, 2 or More Views CLINICAL HISTORY: Reason for exam: trauma. TECHNIQUE: Frontal and lateral views of the right humerus. COMPARISON: No relevant prior studies available. FINDINGS: Bones/joints: There are degenerative changes about the shoulder including the acromioclavicular and glenohumeral joint. Probable osteoporosis. No acute fracture. No dislocation. Soft tissues: Unremarkable. IMPRESSION: 1. Degenerative change about the shoulder. 2. No fracture or acute bony abnormality. Electronically signed by: Carly Velez M.D. 09/17/24 22:18 PM Shoulder X-Ray 09/17/24 20:33 Exam(s): XR SHOULDER, 2+ views EXAM: XR Right Shoulder Complete, 2 or More Views CLINICAL HISTORY: Reason for exam: trauma. TECHNIQUE: Two or more views of the right shoulder. COMPARISON: None. Previous left shoulder x-ray 2023. FINDINGS: Bones/joints: Degenerative change about the shoulder involving the acromioclavicular and glenohumeral joints. No acute fracture. No dislocation. Soft tissues: Mild interstitial thickening in the visualized lung, nonspecific, may be chronic. Mild pneumonia not excluded. IMPRESSION: 1. No fracture or acute bony abnormality. 2. Mild interstitial thickening in the visualized right lung, nonspecific, may be chronic. Can not rule out mild pneumonia. Electronically signed by: Carly Velez M.D. 09/17/24 22:23 PM ECG Data Attestation: I personally reviewed and interpreted this ECG as follows: Rate (beats per minute): 72 Rhythm: + normal sinus ECG Intervals/blocks: + First degree AV block, + Normal QRS and + Normal QT-c ECG ST segments: + Normal ST segments [facility] Narrative 1927: The patient was evaluated in room B1. A complete history and physical exam was performed Cardiac monitoring: An order was placed for continuous cardiac monitoring. The monitor shows a rate of 70 with sinus rhythm interpreted by me 2300: Vital signs stable. Labs are unremarkable. Imaging shows no acute traumatic injury. Patient be discharged back to her assisted care living facility. Case management will try to assist with transport. 2325: Patient reporting pain with movement and staff and patient are concerned that she will fall again if discharged back. Patient will be admitted due to fall for pain control and physical therapy eval. Impression & Plan Fall Discharge Plan Visit Data Chief Complaint: Trauma ED Provider: Emmanuel Jeter Discharge Problem: Fall Patient Disposition: Being Evaluated by Hospitalist Condition: Good Discharge Instructions Rosey/Other Patient Handouts: ED Fall Prevention Forms Stand Alone Forms: [facility], Important Visit Information Prescriptions Prescriptions: No Action (DME) blood-glucose meter [OneTouch Verio Reflect Meter] Misc See Rx Instructions .Route Qty: 1 0RF Rx Instructions: As directed (DME) lancets [OneTouch Delica Plus Lancet] 33 gauge misc See Rx Instructions .ROUTE .MEDSUPPLY Qty: 400 3RF Rx Instructions: use to test 4 times daily (DME) pen needle, diabetic [BD Ultra-Fine Cris Pen Needle] 32 gauge x 5/32" needle See Rx Instructions .ROUTE .MEDSUPPLY Qty: 400 3RF Rx Instructions: use 4 per day with insulin injections metoprolol succinate [Toprol XL] 50 mg tablet extended release 24 hr 50 mg PO QAM Qty: 90 3RF duloxetine 60 mg capsule,delayed release(DR/EC) 60 mg PO DAILY Qty: 30 5RF atorvastatin [Lipitor] 40 mg tablet 40 mg PO HS Qty: 90 3RF methenamine hippurate 1 gram tablet 1 g PO BID Qty: 180 5RF cranberry 500 mg capsule 500 mg PO QAM hydroxyzine HCl 10 mg tablet 10 mg PO BID triamcinolone acetonide 0.1 % cream 1 applic topical BID Qty: 30 1RF Rx Instructions: apply to affected areas for itching...use with ketoconazole and barrier cream (DME) OneTouch Verio test strips Strip See Rx Instructions .ROUTE .MEDSUPPLY Qty: 300 3RF Rx Instructions: test 4 times daily ketoconazole 2 % cream 1 applic topical BID 14 Days Qty: 30 1RF benzonatate 100 mg capsule 100 mg PO TID PRN (Reason: Cough) ergocalciferol (vitamin D2) 50 mcg (2,000 unit) capsule 50 mcg PO DAILY ondansetron HCl 4 mg tablet 4 mg PO Q4 PRN (Reason: Nausea And Vomiting) PreserVision AREDS-2 250-90-40-1 mg Capsule 1 tab PO BID clopidogrel [Plavix] 75 mg tablet 75 mg PO QAM lidocaine 5 % adhesive patch,medicated 1 patch topical DAILY Rx Instructions: apply to lower back 1 time a day for pain for up to 12 hours lisinopril 20 mg tablet 20 mg PO QAM spironolactone [Aldactone] 25 mg tablet 12.5 mg PO QAM doxazosin 1 mg tablet 1 mg PO QAM Gemtesa 75 mg tablet 75 mg PO QAM metoprolol succinate 50 mg tablet extended release 24 hr 50 mg PO QPM insulin lispro [Humalog KwikPen Insulin] 100 unit/mL insulin pen 10 unit subcut TID insulin glargine U-300 conc [Toujeo Max U-300 SoloStar] 300 unit/mL (3 mL) insulin pen 40 unit subcut QAM loperamide [Imodium A-D] 2 mg Tablet 2 mg PO Q8 PRN (Reason: Diarrhea) Probiotic Digestive Health 30 billion cell Capsule 1 cap PO DAILY Rx Instructions: pt uses gummy...not clear on strength multivitamin with minerals Tablet 1 tab PO DAILY Referrals Referrals: Markus Castillo MD [Primary Care Provider] - (Follow-up in 1-7 days.) Discharge Problem: Fall Qualifiers: Encounter type: initial encounter Qualified Code(s): W19.XXXA - Unspecified fall, initial encounter
--- NOTE | 2024-09-18 00:39 | History & Physical Report ---
Date of Service September 18, 2024 Assessment & Plan (1) Cystitis: (2) Recurrent UTI (urinary tract infection): (3) Diabetic peripheral neuropathy: (4) Overactive bladder: (5) Fall: (6) Type 2 diabetes mellitus with insulin therapy: Plan The patient is a 83-year-old female with a past medical history including diabetic nephropathy, gait apraxia, hypertension, diabetic peripheral neuropathy, stented coronary artery, stroke with residual deficit, history of recurrent UTI, urinary incontinence, and nonproliferative diabetic retinopathy. The patient presented to the emergency department about 2 hours after a fall that occurred while she was moving clothing at [facility], where she has been living since April. She reports a mild bump to her head, without any residual symptoms. She reports taking all her medication as directed as directed, but has not had her evening medications at this time. Workup in the emergency department includes a urinalysis suggestive of UTI, and CT scan of abdomen pelvis suggest cystitis. The patient is assessed in the ED under the trauma protocol, and will therefore be admitted to the PCU per trauma protocol. Cystitis/recurrent urinary tract infections- Follow urine culture and sensitivity Placed on ceftriaxone 2 g IV every 24 hours Discontinue methenamine hippurate Status post fall- Multiple x-rays that are negative including right shoulder, right humerus, pelvis, thoracic spine, CT cervical spine, CT head. CT scan abdomen pelvis suggestive of cystitis Lumbar spine with moderate superior L5 endplate compression fracture that is likely chronic If patient has generalized weakness after being in hospital for treatment of UTI, she may require PT/OT assessment and treatment CAD/stented coronary artery/hypertension- Continue clopidogrel, doxazosin, lisinopril, metoprolol succinate and spironolactone Diabetes mellitus- Changed Toujeo from 40 to 30 units subcu every morning Hold lisinopril 10 mg p.o. 3 times daily Placed on Accu-Cheks with NovoLog SSI as noted History of Present Illness Chief Complaint: The patient presents to the emergency department after a fall at [facility], where she was attempting to move clothing from a chair to a closet setting. She reports that she did have a small bump to her head, but did not have any headache, nausea, vomiting or any other associated symptoms. She does report having frequent testing for urinary tract infections, and presently is on prophylaxis for UTIs. Primary Care Provider: Markus Castillo MD The patient is a 83-year-old female with a past medical history including diabetic nephropathy, gait apraxia, hypertension, diabetic peripheral neuropathy, stented coronary artery, stroke with residual deficit, history of recurrent UTI, urinary incontinence, and nonproliferative diabetic retinopathy. The patient presented to the emergency department about 2 hours after a fall that occurred while she was moving clothing at [facility], where she has been living since April. She reports a mild bump to her head, without any residual symptoms. She reports taking all her medication as directed as directed, but has not had her evening medications at this time. Workup in the emergency department includes a urinalysis suggestive of UTI, and CT scan of abdomen pelvis suggest cystitis. The patient is assessed in the ED under the trauma protocol, and will therefore be admitted to the PCU per trauma protocol. Allergies Allergy/AdvReac Type Severity Reaction Status Date / Time dapsone Allergy Intermediate Rash Verified 08/25/24 15:07 Sulfa (Sulfonamide Allergy Mild Unknown Verified 08/25/24 15:07 Antibiotics) latex Allergy Unknown Unknown Verified 08/25/24 15:07 ciprofloxacin AdvReac Intermediate "i blew up Verified 08/25/24 15:07 like a balloon" per pt adhesive AdvReac Unknown Unknown Verified 08/25/24 15:07 metronidazole [From Flagyl] AdvReac Unknown Unknown Verified 08/25/24 15:07 red dye AdvReac Unknown Unknown Verified 08/25/24 15:07 Home Medications Medication Instructions Recorded Confirmed Type OneTouch Verio Reflect Meter #1 ea 08/05/21 09/17/24 Rx (blood-glucose meter) OneTouch Delica Plus Lancet 33 #400 ea 07/28/22 09/17/24 Rx gauge (lancets) vit C 250 mg-vit E 90 mg-zinc 40 1 tab PO BID 08/17/22 09/17/24 History mg-copper 1 [id number] capsule (PreserVision AREDS-2) pen needle, diabetic 32 gauge x #400 ea 05/16/23 09/17/24 Rx 5/32" (BD Ultra-Fine Cris Pen Needle) ketoconazole 2 % topical cream 1 applic topical BID 2 weeks #30 01/17/24 09/17/24 Rx grams benzonatate 100 mg capsule 100 mg PO TID PRN Cough 05/20/24 09/17/24 History ergocalciferol (vitamin D2) 50 mcg 50 mcg PO DAILY 05/20/24 09/17/24 History (2,000 unit) capsule ondansetron HCl 4 mg tablet 4 mg PO Q4 PRN Nausea And Vomiting 05/20/24 09/17/24 History OneTouch Verio test strips (blood #300 ea 05/29/24 09/17/24 Rx sugar diagnostic) triamcinolone acetonide 0.1 % 1 applic topical BID #30 grams 05/29/24 09/17/24 Rx topical cream duloxetine 60 mg capsule,delayed 60 mg PO DAILY #30 caps 07/16/24 09/17/24 Rx release metoprolol succinate 50 mg 50 mg PO QAM #90 tabs 07/16/24 09/17/24 Rx tablet,extended release 24 hr (Toprol XL) atorvastatin 40 mg tablet (Lipitor) 40 mg PO HS #90 tabs 07/17/24 09/17/24 Rx methenamine hippurate 1 gram tablet 1 g PO BID #180 tabs 07/23/24 09/17/24 Rx cranberry 500 mg capsule 500 mg PO QAM 08/04/24 09/17/24 History hydroxyzine HCl 10 mg tablet 10 mg PO BID 08/04/24 09/17/24 History L.acid,par,plant,rham-B.anim,bif,brev,inf,long 1 cap PO DAILY 09/17/24 09/17/24 History 30 billion cell capsule (Probiotic Digestive Health) clopidogrel 75 mg tablet (Plavix) 75 mg PO QAM 09/17/24 09/17/24 History doxazosin 1 mg tablet 1 mg PO QAM 09/17/24 09/17/24 History insulin glargine U-300 conc 300 40 unit subcut QAM 09/17/24 09/17/24 History unit/mL (3 mL) subcutaneous pen (Toujeo Max U-300 SoloStar) insulin lispro 100 unit/mL 10 unit subcut TID 09/17/24 09/17/24 History subcutaneous pen (Humalog KwikPen (U-100) Insulin) lidocaine 5 % topical patch 1 patch topical DAILY Pain 09/17/24 09/17/24 History lisinopril 20 mg tablet 20 mg PO QAM 09/17/24 09/17/24 History loperamide 2 mg tablet (Imodium 2 mg PO Q8 PRN Diarrhea 09/17/24 09/17/24 History A-D) metoprolol succinate 50 mg 50 mg PO QPM 09/17/24 09/17/24 History tablet,extended release 24 hr multivitamin with minerals 1 tab PO DAILY 09/17/24 09/17/24 History spironolactone 25 mg tablet 12.5 mg PO QAM 09/17/24 09/17/24 History (Aldactone) vibegron 75 mg tablet (Gemtesa) 75 mg PO QAM 09/17/24 09/17/24 History Past Med/Surg History Problem List (Updated 09/18/24 @ 00:34 by Brandin Collins MD) Cystitis Fall (Acute) Diabetic nephropathy associated with type 2 diabetes mellitus Persistent microalbuminuria associated with type 2 diabetes mellitus Pressure ulcer Gait apraxia Pyelonephritis (Acute) Right sided sciatica (Acute) Abdominal pain, lower (Acute) Tiredness Hypertension Dermatitis Low back pain Overactive bladder Hypomagnesemia (Acute) Lumbar contusion (Acute) Left leg weakness (Acute) Nonproliferative diabetic retinopathy Diabetic peripheral neuropathy Stented coronary artery Loss of protective sensation of skin of foot H/O: stroke with residual effects Albuminuria Recurrent UTI (urinary tract infection) Urine incontinence (Chronic) Age-related cognitive decline (Chronic) Diabetic peripheral neuropathy associated with type 2 diabetes mellitus (Acute) Gait disturbance (Acute) Nephrolithiasis (Acute) Neuropathic pain of both feet (Acute) Vitamin D deficiency disease (Acute) Medical History Influenza A Closed compression fracture of lumbar vertebra (~2019) a chronic superior endplate compression fracture deformity of L5 per the MRI from 03/22/24 Type 2 diabetes mellitus with insulin therapy Hyperlipidemia IBS (irritable bowel syndrome) Spinal stenosis, lumbar region with neurogenic claudication Stroke-like symptom Numbness of left hand Humerus fracture Balance problem Stroke Fall Abnormal thyroid blood test Localized swelling of both lower legs Hypoglycemia Lupus Closed left humeral fracture (07/22/23) from a fall Interstitial lung disease Diabetes mellitus type 2, uncontrolled CAD (coronary artery disease) Hypertension Contact dermatitis Chronic cough Rash Herpes zoster, ocular Contusion of leg, left Gross hematuria Physical deconditioning Expressive aphasia Chronic diarrhea Spinal stenosis of lumbar region Cerebrovascular disease Family history of dementia Neurogenic claudication due to lumbar spinal stenosis Arm DVT (deep venous thromboembolism), acute Mitral regurgitation Recurrent UTI Hx of renal calculi C. difficile colitis Surgical History History of lithotripsy S/P cardiac catheterization Hx of cholecystectomy Family History Mother Alzheimer disease Hypertension Brother Diabetes Myocardial infarction Father Hypertension Sister Lung cancer Other Family history non-contributory Stroke Denies family history of Ovarian cancer Prostate cancer Breast cancer Colorectal cancer Social History Smoking Status: Never smoker Second Hand Exposure: No; Do You Dip or Chew Tobacco: No; Hx Alcohol Use: No Hx Substance Use: No Preferred Language: Cuban Communication Ability: Effective Visual Impairment: No Limitations Hearing Ability: Normal Hide Washer Required: No Beliefs That Will Affect Care: None marital status: / Current Living Situation: Alone Current Living Situation Comment: Daughter in law helps patient with care current occupational status: retired Feels Safe at Home: Yes Childhood Exposure to Second-Hand Smoke: No Dental Care, Regularly: No Physical Activity Frequency: Does not Exercise Seatbelt Use: always Sunscreen Use: No Assistive Devices: Walker Review of Systems Review of Systems: The patient denies chest pain, palpitations, shortness of breath, dyspnea on exertion, cough, lower extremity swelling, sore throat, fevers, chills, sweats, nausea, vomiting, diarrhea , constipation, abdominal pain, pelvic pain, blood in urine or stool, dysuria, urinary frequency or urgency, lightheadedness, dizziness, headache, memory loss, loss of consciousness, rash, abnormal bruising or bleeding, focal weakness, numbness or tingling in arms, neck pain, or night sweats. The review of systems is otherwise negative other than for that already noted above, and at least 10 systems have been reviewed. Physical Exam Physical Exam: The patient is awake, alert and oriented 3, well developed and well nourished, normocephalic and atraumatic, lying in bed and in no acute distress. HEENT--PERRL, EOMI, mucous membranes and oropharynx normal Neck--supple. No JVD. No bruits. Thyroid normal, trachea midline, no adenopathy. Heart--normal S1 and S2. No murmurs, rubs or gallops. Lungs--clear bilaterally, no respiratory distress, no accessory muscle use. Abdomen--normal bowel sounds and soft. Nontender. Nondistended Extremities--no cyanosis or clubbing. No edema. There are good distal pulses b/l. Dermatologic--normal skin turgor, normal color, no abnormal lymph nodes, no rash. Neurologic--cranial nerves II through XII grossly intact. Rheumatologic--normal range of motion. Psychiatric--normal affect. Results & Data Results & Data Vital Signs (Past 12 Hours) Vital Signs Temp Pulse Pulse Resp BP BP Pulse Ox 09/18/24 00:00 70 20 161/92 H 94 09/17/24 23:26 71 20 190/89 H 93 09/17/24 22:00 74 18 179/99 H 91 09/17/24 20:30 177/99 H 09/17/24 20:29 73 09/17/24 20:26 184/74 H 09/17/24 20:21 80 26 H 90 09/17/24 20:12 72 22 177/99 H 94 09/17/24 20:08 184/92 H 09/17/24 20:03 71 25 H 92 09/17/24 20:03 191/93 H 09/17/24 20:03 70 24 191/93 H 93 09/17/24 19:53 197/100 H 09/17/24 19:53 72 22 93 09/17/24 19:39 188/93 H 09/17/24 19:39 72 19 188/93 H 93 09/17/24 19:33 201/112 H 09/17/24 19:30 36.8 C 69 24 197/100 H 93 09/17/24 19:27 36.8 C 71 26 H 201/112 H O2 Del Method O2 Flow Rate 09/18/24 00:00 Room Air 09/17/24 23:26 Room Air 09/17/24 22:00 Room Air 09/17/24 20:30 09/17/24 20:29 09/17/24 20:26 09/17/24 20:21 09/17/24 20:12 Room Air 09/17/24 20:08 09/17/24 20:03 09/17/24 20:03 09/17/24 20:03 Room Air 09/17/24 19:53 09/17/24 19:53 Room Air 09/17/24 19:39 09/17/24 19:39 Room Air 09/17/24 19:33 09/17/24 19:30 Room Air 0 09/17/24 19:27 Laboratory Results Laboratory Results WBC 11.08 K/ul (4.8-10.8) H 09/17/24 19:38 RBC 4.45 M/uL (4.20-5.40) 09/17/24 19:38 Hgb 13.4 g/dl (12.0-16.0) 09/17/24 19:38 POC Hgb 13.9 g/dl (12.0-16.0) 09/17/24 19:39 Hct 39.7 % (37.0-47.0) 09/17/24 19:38 POC Hct 41 % (37-47) 09/17/24 19:39 MCV 89.2 fL (80.0-100.0) 09/17/24 19:38 MCH 30.1 pg (25.0-34.0) 09/17/24 19:38 MCHC 33.8 g/dL (32.0-36.0) 09/17/24 19:38 RDW Std Deviation 42.2 fL (36.4-46.3) 09/17/24 19:38 RDW Coeff of Linda 13.0 % (11.5-14.5) 09/17/24 19:38 Plt Count 222 K/uL (130-400) 09/17/24 19:38 MPV 10.1 fL (9.4-12.4) 09/17/24 19:38 Immature Gran % (Auto) 0.8 % 09/17/24 19:38 Neut % (Auto) 68.5 % 09/17/24 19:38 Lymph % (Auto) 20.4 % 09/17/24 19:38 Barton % (Auto) 8.3 % 09/17/24 19:38 Eos % (Auto) 1.6 % 09/17/24 19:38 Baso % (Auto) 0.4 % 09/17/24 19:38 Neut # (Auto) 7.59 K/uL (1.40-6.50) H 09/17/24 19:38 Lymph # (Auto) 2.26 K/uL (1.20-3.40) 09/17/24 19:38 Barton # (Auto) 0.92 K/uL (0.11-0.59) H 09/17/24 19:38 Eos # (Auto) 0.18 K/uL (0.00-0.50) 09/17/24 19:38 Baso # (Auto) 0.04 K/uL (0.00-0.20) 09/17/24 19:38 Immature Gran # (Auto) 0.09 K/uL (0.01-0.20) 09/17/24 19:38 PT 11.3 Seconds (9.0-12.0) 09/17/24 19:38 INR 1.0 (0.9-1.1) 09/17/24 19:38 APTT 26 Seconds (21-31) 09/17/24 19:38 PTT Ratio 1.0 09/17/24 19:38 POC Sodium 141 mmol/L (135-144) 09/17/24 19:39 Sodium 139 mmol/L (136-145) 09/17/24 19:38 POC Potassium 4.3 mmol/L (3.3-5.0) 09/17/24 19:39 Potassium 4.2 mmol/L (3.5-5.1) 09/17/24 19:38 POC Chloride 104 mmol/L (101-112) 09/17/24 19:39 Chloride 104 mmol/L (98-107) 09/17/24 19:38 Carbon Dioxide 27 mmol/L (21-32) 09/17/24 19:38 POC Total CO2 26 mmol/L (24-31) 09/17/24 19:39 Anion Gap 8 (3-11) 09/17/24 19:38 POC Anion Gap 17.0 mmol/L (16-25) 09/17/24 19:39 POC BUN 34 mg/dl (7-18) H 09/17/24 19:39 BUN 32 mg/dl (6-23) H 09/17/24 19:38 Creatinine 0.96 mg/dl (0.6-1.2) 09/17/24 19:38 POC Creatinine 1.0 mg/dl (0.6-1.3) 09/17/24 19:39 Est Cr Clr Drug Dosing 40.8 ml/min 09/17/24 19:38 eGFR 58.71 09/17/24 19:38 BUN/Creatinine Ratio 33.3 (10-20) H 09/17/24 19:38 Glucose 186 mg/dl (70-99(Fasting)) H 09/17/24 19:38 POC Glucose (other) 178 mg/dl (70-99) H 09/17/24 19:39 Calcium 10.0 mg/dl (8.6-10.3) 09/17/24 19:38 POC Ioniz Calcium Macy 1.22 mmol/l (1.12-1.32) 09/17/24 19:39 Total Bilirubin 0.6 mg/dl (0.2-1.0) 09/17/24 19:38 AST 28 U/L (13-39) 09/17/24 19:38 ALT 30 U/L (7-52) 09/17/24 19:38 Alkaline Phosphatase 52 U/L (34-104) 09/17/24 19:38 Total Protein 7.8 gm/dl (6.0-8.3) 09/17/24 19:38 Albumin 3.9 gm/dl (3.4-5.0) 09/17/24 19:38 Globulin 3.9 gm/dl (2.5-4.0) 09/17/24 19:38 Albumin/Globulin Ratio 1.0 (0.9-2) 09/17/24 19:38 Lipase 28 U/L (11-82) 09/17/24 19:38 Urine Color Yellow 09/17/24 20:55 Urine Appearance Turbid (Clear) A 09/17/24 20:55 Urine pH 5.5 (4.5-7.5) 09/17/24 20:55 Ur Specific [place] 1.033 (1.000-1.030) H 09/17/24 20:55 Urine Protein 1+ (Negative) H 09/17/24 20:55 Urine Glucose (UA) Negative (Negative) 09/17/24 20:55 Urine Ketones Negative (Negative) 09/17/24 20:55 Urine Blood 2+ (Negative) H 09/17/24 20:55 Urine Nitrite Negative (Negative) 09/17/24 20:55 Urine Bilirubin Negative (Negative) 09/17/24 20:55 Urine Urobilinogen Negative (Negative) 09/17/24 20:55 Ur Leukocyte Esterase 3+ (Negative) H 09/17/24 20:55 Urine WBC (Auto) >50 /hpf (0-5) H 09/17/24 20:55 Urine RBC (Auto) 6-10 /hpf (0-2) H 09/17/24 20:55 U Hyaline Cast (Auto) 3-5 /lpf (0-2) H 09/17/24 20:55 U Epithel Cells (Auto) 11-20 /hpf (0-2) H 09/17/24 20:55 Urine Bacteria (Auto) None Seen (None Seen) 09/17/24 20:55 Urine Yeast Present (None Prsent) A 09/17/24 20:55 Urine Comment 09/17/24 20:55 Impressions Chest X-Ray 09/17/24 19:27 EXAM: Portable AP chest radiograph TECHNIQUE: AP portable radiograph of the chest was obtained. INDICATION: Trauma Comparison: Chest radiograph April 16, 2024. FINDINGS: LINES and TUBES: None CARDIOVASCULAR: Cardiac silhouette is stably enlarged in size. LUNGS/PLEURA: Pulmonary vascular congestion and chronic interstitial lung changes are seen. No focal consolidation identified. Small pleural fluids could be present. No discernible pneumothorax. OSSEOUS/OTHER: No displaced acute osseous process identified. IMPRESSION: Congestive changes of the cardiovascular system. Electronically signed by Hardeep Lo 09-17-2024 8:29 PM Lumbar Spine X-Ray 09/17/24 19:27 Exam(s): XR L SPINE, 4-5 views EXAM: XR Lumbosacral Spine, 4 or 5 Views CLINICAL HISTORY: Reason for exam: trauma. TECHNIQUE: Frontal, lateral and bilateral oblique views of the lumbar spine. COMPARISON: CT abdomen pelvis, same day. FINDINGS: Vertebrae: Moderate superior endplate compression L5, age indeterminate, probably chronic, given appearance on CT done earlier the same day.. Probable osteoporosis. Normal alignment. Sacrum/coccyx: Unremarkable as visualized. No acute fracture. Disc spaces: Severe degenerative disc disease L4-5 with milder degenerative change at the remaining levels. Diffuse facet hypertrophy. Soft tissues: Severe fecal loading of the cecum. Residual contrast in the collecting system from CT done earlier the same day. IMPRESSION: 1. Moderate superior endplate compression L5, age indeterminate, probably chronic. 2. If there is continued clinical concern, MRI may be performed for further evaluation. Electronically signed by: Carly Velez M.D. 09/17/24 22:28 PM Pelvis X-Ray 09/17/24 19:27 REASON FOR EXAM: The patient is presenting with a history of trauma. Exam: X-ray pelvis one to 2 views routine Previous studies: 02/06/2023: Findings: Single AP frontal view of the pelvis is submitted. Mild DJD seen in both hips. Some osteoporosis is present. Sacroiliac joints unremarkable. No acute fracture, dislocation or destructive bony process is visible. IMPRESSION: Negative for acute bony trauma on limited AP view of the pelvis. Should posttraumatic symptoms of pain persist, more sensitive evaluation with CT study would be recommended. Electronically signed by Donaldo Palacio 09-17-2024 8:52 PM Thoracic Spine X-Ray 09/17/24 19:27 Exam(s): XR T SPINE, 3 views EXAM: XR Thoracic Spine, 3 Views CLINICAL HISTORY: Reason for exam: trauma. TECHNIQUE: Frontal, lateral and swimmer's views of the thoracic spine. COMPARISON: No relevant prior studies available. FINDINGS: Vertebrae: Multilevel, chronic endplate flattening. No acute fracture. Normal alignment. Probable osteoporosis. Disc spaces: Moderate degenerative disc disease and facet hypertrophy. Soft tissues: Residual contrast in the renal collecting system from CT abdomen pelvis done earlier the same day. Cardiomegaly. Scattered vascular and interstitial prominence, not well evaluated on thoracic spine technique. IMPRESSION: 1. Osteoporosis and degenerative change. 2. No fracture or acute bony abnormality. Electronically signed by: Carly Velez M.D. 09/17/24 22:[address] 09/17/24 19:28 Exam(s): CT C SPINE EXAM: CT Cervical Spine Without Intravenous Contrast CLINICAL HISTORY: Reason for exam: Trauma. TECHNIQUE: Axial computed tomography images of the cervical spine without intravenous contrast. CTDI is 26.46 mGy and DLP is 473.28 mGy-cm. Automated exposure control was utilized for the study. A dose lowering technique was utilized adhering to the principles of ALARA. COMPARISON: CT cervical spine 12/19/2023. FINDINGS: Vertebrae: No acute fracture. Probable osteoporosis. Discs/spinal canal/neural foramina: Severe, fairly isolated degenerative disc disease C5-6. Diffuse and severe facet hypertrophy. Findings are stable. Soft tissues: Unremarkable. IMPRESSION: 1. Stable osteoporosis and degenerative change. 2. No fracture or acute bony abnormality. Electronically signed by: Carly Velez M.D. 09/17/24 20:[address] 09/17/24 19:28 Exam(s): CT HEAD Without Contrast EXAM: CT Head Without Intravenous Contrast CLINICAL HISTORY: Reason for exam: Trauma. TECHNIQUE: Axial computed tomography images of the head/brain without intravenous contrast. CTDI is 35.79 mGy and DLP is 624.41 mGy-cm. Automated exposure control was utilized for the study. A dose lowering technique was utilized adhering to the principles of ALARA. Mild motion artifact. COMPARISON: Head CT 12/19/2023. FINDINGS: Brain: No mass effect or acute infarct. No acute hemorrhage. Mild atrophy and chronic white matter disease, stable. Ventricles: No hydrocephalus or midline shift. Bones/joints: No skull fracture. Soft tissues: No scalp hematoma. Visualized Sinuses: Clear. Mastoid air cells: No mastoid effusion. IMPRESSION: 1. Stable age-related findings. 2. No skull fracture, bleed, or acute intracranial abnormality. Electronically signed by: Carly Velez M.D. 09/17/24 20:26 PM Abdomen/Pelvis CT 09/17/24 20:06 Exam(s): CT ABDOMEN + PELVIS With Contrast IV Amt: 90 ml optiray 320 EXAM: CT Abdomen and Pelvis With Intravenous Contrast CLINICAL HISTORY: Reason for exam: trauma. TECHNIQUE: Axial computed tomography images of the abdomen and pelvis with intravenous contrast. CTDI is 34.88 mGy and DLP is 1639.62 mGy-cm. Automated exposure control was utilized for the study. A dose lowering technique was utilized adhering to the principles of ALARA. Mild-to- moderate artifact from body habitus, arms in the field of view an external metal. CONTRAST: Patient received 90 ml optiray 320 of IV contrast COMPARISON: CT abdomen pelvis 04/16/2024. FINDINGS: Lung bases: Moderate cardiomegaly. Moderate vascular and interstitial prominence, progressed, nonspecific, can not rule out CHF, pneumonia, and/or edema, though this could reflect chronic disease as well. Liver: Fatty. Minimal intrahepatic ductal dilatation, stable. Gallbladder and bile ducts: Cholecystectomy. No ductal dilation. Pancreas: No ductal dilation, or acute pancreatitis. Spleen: Unremarkable. Adrenals: Stable 17 mm left adrenal nodule.. Kidneys and ureters: Dilated extrarenal pelvis on the left, stable. No pyelonephritis or hydronephrosis. Stomach and bowel: No obstruction. Appendix: No acute appendicitis. Intraperitoneal space: No free air or fluid. Bones/joints: No acute fracture. Soft tissues: Unremarkable. Vasculature: No aortic aneurysm. Lymph nodes: No enlarged lymph nodes. Bladder: Moderate wall thickening and haziness, probable cystitis, correlate clinically. Reproductive: Unremarkable as visualized. IMPRESSION: 1. Probable cystitis. 2. Cardiomegaly with progressive vascular/interstitial thickening that is nonspecific, probable CHF and/or pneumonia. 3. Stable left adrenal nodule. Electronically signed by: Carly Velez M.D. 09/17/24 21:14 PM Humerus X-Ray 09/17/24 20:32 Exam(s): XR RIGHT HUMERUS, 2+ views EXAM: XR Right Humerus, 2 or More Views CLINICAL HISTORY: Reason for exam: trauma. TECHNIQUE: Frontal and lateral views of the right humerus. COMPARISON: No relevant prior studies available. FINDINGS: Bones/joints: There are degenerative changes about the shoulder including the acromioclavicular and glenohumeral joint. Probable osteoporosis. No acute fracture. No dislocation. Soft tissues: Unremarkable. IMPRESSION: 1. Degenerative change about the shoulder. 2. No fracture or acute bony abnormality. Electronically signed by: Carly Velez M.D. 09/17/24 22:18 PM Shoulder X-Ray 09/17/24 20:33 Exam(s): XR SHOULDER, 2+ views EXAM: XR Right Shoulder Complete, 2 or More Views CLINICAL HISTORY: Reason for exam: trauma. TECHNIQUE: Two or more views of the right shoulder. COMPARISON: None. Previous left shoulder x-ray 2023. FINDINGS: Bones/joints: Degenerative change about the shoulder involving the acromioclavicular and glenohumeral joints. No acute fracture. No dislocation. Soft tissues: Mild interstitial thickening in the visualized lung, nonspecific, may be chronic. Mild pneumonia not excluded. IMPRESSION: 1. No fracture or acute bony abnormality. 2. Mild interstitial thickening in the visualized right lung, nonspecific, may be chronic. Can not rule out mild pneumonia. Electronically signed by: Carly Velez M.D. 09/17/24 22:23 PM Code Status & VTE Plan Code Status DNR/DNI VTE Prophylaxis Plan VTE Prophylaxis will be ordered: Yes PG Care Time/CCT Total # of Minutes Spent Total Time Spent with Patient: Total time spent is greater than 50% in coordination of care (as documented) at patient's floor/unit and/or counseling patient: Coding Level of Care Code 74084 INT INP/OBS CARE 3/75MIN Diagnoses Cystitis N30.90 Recurrent UTI (urinary tract infection) N39.0 Diabetic peripheral neuropathy E11.42 Overactive bladder N32.81 Fall W19.XXXA Encounter type: initial encounter Type 2 diabetes mellitus with insulin therapy E11.9; Z79.4 (5) Fall Encounter type: initial encounter Qualified Code(s): W19.XXXA - Unspecified fall, initial encounter
[2024-09-18] MEDS: cefTRIAXone SODIUM 2,000 MG/50 ML BAG IV STA (00:41)
[2024-09-18] MEDS ORDERED: BENZONATATE 100 MG CAPSULE PO PRN (02:05)
[2024-09-18] MEDS ORDERED: GLUCOSE 10 TAB/TUBE PO PRN (02:05)
[2024-09-18] MEDS ORDERED: GLUCAGON FOR INJ 1 MG VIAL SQ PRN (02:05)
[2024-09-18] MEDS ORDERED: DEXTROSE 50% 50 ML SYRINGE IV PRN (02:05)
[2024-09-18] MEDS ORDERED: CARBOHYDRATES FOR HYPOGLYCEMIA PO PRN (02:05)
[2024-09-18] MEDS ORDERED: GLUCOSE 40% GEL 15 GM TUBE PO PRN (02:05)
[2024-09-18] MEDS: ACETAMINOPHEN 325 MG TAB PO PRN (05:28)
[2024-09-18 06:14] LABS: Hematocrit (blood only) 39.4 % (37.0-47.0); Hemoglobin 13.0 g/dl (12.0-16.0); Immature Granulocytes # (auto) 0.08 K/uL (0.01-0.20); Immature Granulocytes % (auto) 0.8 %; Mean Corpuscular Hemoglobin 30.0 pg (25.0-34.0); Mean Corpuscular Volume 90.8 fL (80.0-100.0); Platelet Count 199 K/uL (130-400); RDW Standard Deviation 41.8 fL (36.4-46.3); Red Blood Count 4.34 M/uL (4.20-5.40); White Blood Count 10.26 K/ul (4.8-10.8)
[2024-09-18 06:49] LABS: Anion Gap 7.0 (3-11); Blood Urea Nitrogen 26.0 mg/dl (6-23); Calcium 9.7 mg/dl (8.6-10.3); Carbon Dioxide 30.0 mmol/L (21-32); Chloride 104.0 mmol/L (98-107); Creatinine Clr Calc Pharmacy 41.7 ml/min; Glucose 123.0 mg/dl (70-99(Fasting)); Potassium 4.1 mmol/L (3.5-5.1); Sodium 141.0 mmol/L (136-145)
[2024-09-18 07:14] LABS: Hemoglobin A1C 8.9 % (4.5-5.6)
[2024-09-18] MEDS: METOPROLOL SUCC 50MG EXT REL TAB PO SCH (08:03)
[2024-09-18] MEDS: DOXAZOSIN MESYLATE 1 MG TAB PO SCH (08:03)
[2024-09-18] MEDS: VIBEGRON 75 MG TAB PO SCH (08:03)
[2024-09-18] MEDS: ADVANCED PROBIOTIC 625 MG CAPSULE PO SCH (08:03)
[2024-09-18] MEDS: CEROVITE ADV FORMULA TAB PO SCH (08:03)
[2024-09-18] MEDS: CHOLECALCIFEROL 25 MCG (1000 UNITS) TAB PO SCH (08:03)
[2024-09-18] MEDS: SPIRONOLACTONE 12.5 MG TAB PO SCH (08:03)
[2024-09-18] MEDS: CLOPIDOGREL BISULFATE 75 MG TAB PO SCH (08:03)
[2024-09-18] MEDS ORDERED: NON-FORMULARY MEDICATION (Vit C,E-Zn-Coppr-Lutein-Zeaxan [Preservision Areds-2] 250-90-40- PO SCH (09:00)
[2024-09-18] MEDS: INSULIN ASPART PER UNIT CHARGE SC SCH (09:15)
[2024-09-18] MEDS: LANTUS PER UNIT CHARGE SQ SCH (09:15)
[2024-09-18] MEDS: LIDOCAINE 5% 1 PATCH TD SCH (09:17)
--- NOTE | 2024-09-18 14:31 | Electrocardiogram Report ---
Test Reason : Blood Pressure : */* mmHG Vent. Rate : 72 BPM Atrial Rate : 72 BPM P-R Int : 232 ms QRS Dur : 90 ms QT Int : 418 ms P-R-T Axes : -5 -10 -22 degrees QTcB Int : 457 ms Sinus rhythm with 1st degree A-V block Inferior infarct , age undetermined Abnormal ECG When compared with ECG of 16-Apr-2024 10:16, MS interval has increased Inferior infarct is now Present Non-specific change in ST segment in Inferior leads Nonspecific T wave abnormality now evident in Inferior leads Confirmed by Eliecer Perez ([id number]) on 09/18/2024 2:31:02 PM Referred By: REFERRED SELF Confirmed By: Eliecer Perez
[2024-09-18] MEDS: ONDANSETRON INJ 2 MG/ML 2 ML VIAL IV PRN (15:09)
--- NOTE | 2024-09-18 16:53 | Communication Note ---
Date of Service: September 18, 2024 Please refer to the H&P dictated earlier this morning for details of presentation on admission. In brief, the patient presented after a fall. She was found to have a UTI. She had a trauma workup done in the emergency room, all of which was negative. She has been started on ceftriaxone. Today, per nurse, she was complaining of abdominal pain and had fullness, distention in her belly. Because of her recent fall, a repeat CT abdomen and pelvis with IV and p.o. contrast has been ordered, pending.
[2024-09-18] MEDS: OPTIRAY 320 100ml IV ONE (17:02)
--- NOTE | 2024-09-18 18:14 | CT Scan Report ---
Clinical History: Abdominal pain and tenderness. Recent fall Technique: Axial computed tomography images were obtained of the abdomen and pelvis after the administration of intravenous and oral contrast. Comparison is made to the prior CT examinations dated 04/16/2024 and 03/22/2024. Findings: The liver is overall of normal size, attenuation, and contour with no sign of cirrhosis or significant fatty infiltration. No liver mass lesion is seen. The portal vein is patent. The gallbladder has been removed. No bile duct dilatation is noted. The spleen is of normal size. No focal splenic lesion is evident. The pancreas appears normal with no sign of acute or chronic pancreatitis and no mass lesion noted. The pancreatic duct is of normal caliber. There is an unchanged 1.7 cm left adrenal nodule, likely a benign adenoma. The right adrenal gland appears normal No definite renal or proximal ureteral calculi are seen on this contrast-enhanced study. There is no hydronephrosis or perinephric stranding. No renal mass lesion is identified. There is an 8 mm right renal cyst and there is also an 8 mm left renal cyst. There is mild bilateral renal cortical scarring. The aorta is of normal caliber. No abdominal adenopathy is seen. There is a small hiatal hernia. There is no sign of small bowel obstruction. There is diverticulosis without evidence of diverticulitis. No free intraperitoneal fluid or air is identified. No distal ureteral or bladder calculi are seen. There is apparent diffuse bladder wall thickening. The iliac arteries are of normal caliber. No pelvic adenopathy is noted. There is bilateral lung base atelectasis.. Mild thoracolumbar degenerative disc disease is seen. There is bilateral hip osteoarthritis. There is an unchanged L5 compression fracture. No focal osseous lesion is seen Impression: 1. No definite sign of abdominal organ injury 2. Unchanged left adrenal adenoma 3. Small bilateral renal cysts 4. Small hiatal hernia 5. Diverticulosis without evidence of diverticulitis 6. Prominence of the wall of the urinary bladder. This appearance could be due to incomplete distention, though infectious cystitis or other pathology cannot be excluded. Correlation with urinalysis may be useful 7. Unchanged L5 compression fracture Electronically signed by Carlos Alberto Win 09-18-2024 6:14 PM
[2024-09-18] MEDS ORDERED: METOPROLOL SUCC 50MG EXT REL TAB PO SCH (21:00)
[2024-09-18] MEDS: ATORVASTATIN 40 MG TAB PO SCH (21:24)
[2024-09-18] MEDS: REMOVE LIDODERM PATCH SCH (21:25)
[2024-09-18] MEDS: cefTRIAXone SODIUM 2,000 MG/50 ML BAG IV SCH (23:44)
[2024-09-19 06:11] LABS: Hematocrit (blood only) 38.2 % (37.0-47.0); Hemoglobin 12.3 g/dl (12.0-16.0); Immature Granulocytes # (auto) 0.06 K/uL (0.01-0.20); Immature Granulocytes % (auto) 0.6 %; Mean Corpuscular Hemoglobin 29.7 pg (25.0-34.0); Mean Corpuscular Volume 92.3 fL (80.0-100.0); Platelet Count 198 K/uL (130-400); RDW Standard Deviation 44.0 fL (36.4-46.3); Red Blood Count 4.14 M/uL (4.20-5.40); White Blood Count 10.28 K/ul (4.8-10.8)
[2024-09-19 06:29] LABS: Anion Gap 6.0 (3-11); Blood Urea Nitrogen 30.0 mg/dl (6-23); Calcium 9.1 mg/dl (8.6-10.3); Carbon Dioxide 29.0 mmol/L (21-32); Chloride 103.0 mmol/L (98-107); Creatinine Clr Calc Pharmacy 33.9 ml/min; Glucose 120.0 mg/dl (70-99(Fasting)); Magnesium 1.7 mg/dl (1.7-2.4); Potassium 4.4 mmol/L (3.5-5.1); Sodium 138.0 mmol/L (136-145)
[2024-09-19] MEDS: LANTUS PER UNIT CHARGE SQ SCH (08:14)
--- NOTE | 2024-09-19 16:12 | Hospitalist Progress Note ---
Date of Service September 19, 2024 Assessment & Plan (1) Cystitis: (2) Recurrent UTI (urinary tract infection): (3) Diabetic peripheral neuropathy: (4) Overactive bladder: (5) Fall: (6) Type 2 diabetes mellitus with insulin therapy: Plan The patient is a 83-year-old female with a past medical history including diabetic nephropathy, gait apraxia, hypertension, diabetic peripheral neuropathy, stented coronary artery, stroke with residual deficit, history of recurrent UTI, urinary incontinence, and nonproliferative diabetic retinopathy. The patient presented to the emergency department about 2 hours after a fall that occurred while she was moving clothing at [facility], where she has been living since April. She reports a mild bump to her head, without any residual symptoms. She reports taking all her medication as directed as directed, but has not had her evening medications at this time. Workup in the emergency department includes a urinalysis suggestive of UTI, and CT scan of abdomen pelvis suggest cystitis. The patient is assessed in the ED under the trauma protocol, and will therefore be admitted to the PCU per trauma protocol. Cystitis/recurrent urinary tract infections- Urine culture indeterminate Placed on ceftriaxone 2 g IV every 24 hours and patient is improving Will switch to p.o. Keflex at the time of discharge to complete a course Discontinue methenamine hippurate Status post fall- Multiple x-rays that are negative including right shoulder, right humerus, pelvis, thoracic spine, CT cervical spine, CT head. CT scan abdomen pelvis suggestive of cystitis Lumbar spine with moderate superior L5 endplate compression fracture that is likely chronic If patient has generalized weakness after being in hospital for treatment of UTI, she may require PT/OT assessment and treatment PT/OT consulted, pending CAD/stented coronary artery/hypertension- Continue clopidogrel, doxazosin, lisinopril, metoprolol succinate and spironolactone Diabetes mellitus- Changed Toujeo from 40 to 30 units subcu every morning Hold lisinopril 10 mg p.o. 3 times daily Placed on Accu-Cheks with NovoLog SSI as noted Admission and Anticipated Discharge Date Admission Date: September 18, 2024 Subjective Patient feels better today. Her aches and pains have improved. She is also happy to know that there is no internal bleeding or fractures found Review of Systems Review of Systems: All systems reviewed & are unremarkable except as noted in Subjective Physical Exam Physical Exam: General: Awake, conversant Heart: S1, S2/regular rate and rhythm, no murmur rubs or gallops Lungs: Clear to auscultation bilaterally. Normal effort Abdomen: Soft/nontender/nondistended. No hepatosplenomegaly Extremities: No clubbing/cyanosis. No edema Behavior: Appropriate, cooperative Results & Data Results & Data Vital Signs (Past 12 Hours) Vital Signs Temp Pulse Resp BP Pulse Ox O2 Del Method O2 Flow Rate 09/19/24 16:01 36.6 C 62 18 107/67 97 Nasal Cannula 1 09/19/24 11:10 36.7 C 60 18 101/66 94 Nasal Cannula 1 09/19/24 08:10 Nasal Cannula 09/19/24 07:49 36.6 C 65 17 130/76 95 Nasal Cannula 1 Laboratory Results Abnormal lab results 09/18/24 09/19/24 09/19/24 Range/Units 21:12 05:29 07:55 RBC 4.14 L (4.20-5.40) M/uL [place] # (Auto) 1.05 H (0.11-0.59) K/uL Eos # (Auto) 0.51 H (0.00-0.50) K/uL BUN 30 H (6-23) mg/dl BUN/Creatinine Ratio 26.8 H (10-20) Glucose 120 H (70-99(Fasting)) mg/dl POC Glucose 135 H 132 H (70-99) mg/dl 09/19/24 Range/Units 11:47 RBC (4.20-5.40) M/uL [place] # (Auto) (0.11-0.59) K/uL Eos # (Auto) (0.00-0.50) K/uL BUN (6-23) mg/dl BUN/Creatinine Ratio (10-20) Glucose (70-99(Fasting)) mg/dl POC Glucose 229 H (70-99) mg/dl Diagnostic Findings Abdomen/Pelvis CT 09/18/24 13:20 Clinical History: Abdominal pain and tenderness. Recent fall Technique: Axial computed tomography images were obtained of the abdomen and pelvis after the administration of intravenous and oral contrast. Comparison is made to the prior CT examinations dated 04/16/2024 and 03/22/2024. Findings: The liver is overall of normal size, attenuation, and contour with no sign of cirrhosis or significant fatty infiltration. No liver mass lesion is seen. The portal vein is patent. The gallbladder has been removed. No bile duct dilatation is noted. The spleen is of normal size. No focal splenic lesion is evident. The pancreas appears normal with no sign of acute or chronic pancreatitis and no mass lesion noted. The pancreatic duct is of normal caliber. There is an unchanged 1.7 cm left adrenal nodule, likely a benign adenoma. The right adrenal gland appears normal No definite renal or proximal ureteral calculi are seen on this contrast-enhanced study. There is no hydronephrosis or perinephric stranding. No renal mass lesion is identified. There is an 8 mm right renal cyst and there is also an 8 mm left renal cyst. There is mild bilateral renal cortical scarring. The aorta is of normal caliber. No abdominal adenopathy is seen. There is a small hiatal hernia. There is no sign of small bowel obstruction. There is diverticulosis without evidence of diverticulitis. No free intraperitoneal fluid or air is identified. No distal ureteral or bladder calculi are seen. There is apparent diffuse bladder wall thickening. The iliac arteries are of normal caliber. No pelvic adenopathy is noted. There is bilateral lung base atelectasis.. Mild thoracolumbar degenerative disc disease is seen. There is bilateral hip osteoarthritis. There is an unchanged L5 compression fracture. No focal osseous lesion is seen Impression: 1. No definite sign of abdominal organ injury 2. Unchanged left adrenal adenoma 3. Small bilateral renal cysts 4. Small hiatal hernia 5. Diverticulosis without evidence of diverticulitis 6. Prominence of the wall of the urinary bladder. This appearance could be due to incomplete distention, though infectious cystitis or other pathology cannot be excluded. Correlation with urinalysis may be useful 7. Unchanged L5 compression fracture Electronically signed by Carlos Alberto Win 09-18-2024 6:14 PM PG Care Time/CCT Total # of Minutes Spent Total Time Spent with Patient: Total time spent is greater than 50% in coordination of care (as documented) at patient's floor/unit and/or counseling patient: Coding Level of Care Code 41872 SUB INP/OBS CARE 2/35MIN Diagnoses Cystitis N30.90 Recurrent UTI (urinary tract infection) N39.0 Diabetic peripheral neuropathy E11.42 Overactive bladder N32.81 Fall W19.XXXA Encounter type: initial encounter Type 2 diabetes mellitus with insulin therapy E11.9; Z79.4 (5) Fall Encounter type: initial encounter Qualified Code(s): W19.XXXA - Unspecified fall, initial encounter
[2024-09-20 06:04] LABS: Hematocrit (blood only) 34.7 % (37.0-47.0); Hemoglobin 11.6 g/dl (12.0-16.0); Immature Granulocytes # (auto) 0.04 K/uL (0.01-0.20); Immature Granulocytes % (auto) 0.4 %; Mean Corpuscular Hemoglobin 30.9 pg (25.0-34.0); Mean Corpuscular Volume 92.3 fL (80.0-100.0); Platelet Count 181 K/uL (130-400); RDW Standard Deviation 43.3 fL (36.4-46.3); Red Blood Count 3.76 M/uL (4.20-5.40); White Blood Count 9.07 K/ul (4.8-10.8)
[2024-09-20 06:28] LABS: Anion Gap 5.0 (3-11); Blood Urea Nitrogen 39.0 mg/dl (6-23); Calcium 9.0 mg/dl (8.6-10.3); Carbon Dioxide 29.0 mmol/L (21-32); Chloride 103.0 mmol/L (98-107); Creatinine Clr Calc Pharmacy 32.1 ml/min; Glucose 121.0 mg/dl (70-99(Fasting)); Magnesium 1.7 mg/dl (1.7-2.4); Potassium 4.5 mmol/L (3.5-5.1); Sodium 137.0 mmol/L (136-145)
--- NOTE | 2024-09-20 14:17 | Hospitalist Progress Note ---
Date of Service September 20, 2024 Assessment & Plan (1) Cystitis: (2) Recurrent UTI (urinary tract infection): (3) Diabetic peripheral neuropathy: (4) Overactive bladder: (5) Fall: (6) Type 2 diabetes mellitus with insulin therapy: Plan The patient is a 83-year-old female with a past medical history including diabetic nephropathy, gait apraxia, hypertension, diabetic peripheral neuropathy, stented coronary artery, stroke with residual deficit, history of recurrent UTI, urinary incontinence, and nonproliferative diabetic retinopathy. The patient presented to the emergency department about 2 hours after a fall that occurred while she was moving clothing at [facility], where she has been living since April. She reports a mild bump to her head, without any residual symptoms. Workup in the emergency department includes a urinalysis suggestive of UTI, and CT scan of abdomen pelvis suggest cystitis. Cystitis/recurrent urinary tract infections- Urine culture indeterminate Placed on ceftriaxone 2 g IV every 24 hours and patient is improving Will switch to p.o. Keflex at the time of discharge to complete a course Discontinue methenamine hippurate Status post fall- Multiple x-rays that are negative including right shoulder, right humerus, pelvis, thoracic spine, CT cervical spine, CT head. CT scan abdomen pelvis suggestive of cystitis Lumbar spine with moderate superior L5 endplate compression fracture that is likely chronic If patient has generalized weakness after being in hospital for treatment of UTI, she may require PT/OT assessment and treatment PT/OT consulted, pending CAD/stented coronary artery/hypertension- Continue clopidogrel, doxazosin, lisinopril, metoprolol succinate and spironolactone Diabetes mellitus- Changed Toujeo from 40 to 30 units subcu every morning Hold lisinopril 10 mg p.o. 3 times daily Placed on Accu-Cheks with NovoLog SSI as noted Admission and Anticipated Discharge Date Admission Date: September 18, 2024 Subjective Patient feels well overall. Denies chest pain or shortness of breath. Review of Systems Review of Systems: All systems reviewed & are unremarkable except as noted in Subjective Physical Exam Physical Exam: General: Awake, conversant Heart: S1, S2/regular rate and rhythm, no murmur rubs or gallops Lungs: Clear to auscultation bilaterally. Normal effort Abdomen: Soft/nontender/nondistended. No hepatosplenomegaly Extremities: No clubbing/cyanosis. No edema Behavior: Appropriate, cooperative Results & Data Results & Data Vital Signs (Past 12 Hours) Vital Signs Temp Pulse Resp BP Pulse Ox O2 Del Method 09/20/24 12:01 36.5 C 59 L 18 112/65 93 Room Air 09/20/24 09:09 36.7 C 66 162/79 H 90 Room Air 09/20/24 08:30 Room Air 09/20/24 04:17 36.4 C L 58 L 16 117/72 92 Room Air Laboratory Results Abnormal lab results 09/19/24 09/19/24 09/20/24 Range/Units 16:47 20:58 05:35 RBC 3.76 L (4.20-5.40) M/uL Hgb 11.6 L (12.0-16.0) g/dl Hct 34.7 L (37.0-47.0) % [place] # (Auto) 1.11 H (0.11-0.59) K/uL BUN 39 H (6-23) mg/dl BUN/Creatinine Ratio 33.6 H (10-20) Glucose 121 H (70-99(Fasting)) mg/dl POC Glucose 149 H 177 H (70-99) mg/dl 09/20/24 09/20/24 Range/Units 07:33 12:05 RBC (4.20-5.40) M/uL Hgb (12.0-16.0) g/dl Hct (37.0-47.0) % [place] # (Auto) (0.11-0.59) K/uL BUN (6-23) mg/dl BUN/Creatinine Ratio (10-20) Glucose (70-99(Fasting)) mg/dl POC Glucose 118 H 137 H (70-99) mg/dl PG Care Time/CCT Total # of Minutes Spent Total Time Spent with Patient: Total time spent is greater than 50% in coordination of care (as documented) at patient's floor/unit and/or counseling patient: Coding Level of Care Code 20487 SUB INP/OBS CARE 2/35MIN Diagnoses Cystitis N30.90 Recurrent UTI (urinary tract infection) N39.0 Diabetic peripheral neuropathy E11.42 Overactive bladder N32.81 Fall W19.XXXA Encounter type: initial encounter Type 2 diabetes mellitus with insulin therapy E11.9; Z79.4 (5) Fall Encounter type: initial encounter Qualified Code(s): W19.XXXA - Unspecified fall, initial encounter
[2024-09-21] MEDS: IBUPROFEN 200 MG TAB PO PRN (05:17)
--- NOTE | 2024-09-21 11:09 | Hospitalist Progress Note ---
Date of Service September 21, 2024 Assessment & Plan (1) Cystitis: (2) Recurrent UTI (urinary tract infection): (3) Diabetic peripheral neuropathy: (4) Overactive bladder: (5) Fall: (6) Type 2 diabetes mellitus with insulin therapy: Plan The patient is a 83-year-old female with a past medical history including diabetic nephropathy, gait apraxia, hypertension, diabetic peripheral neuropathy, stented coronary artery, stroke with residual deficit, history of recurrent UTI, urinary incontinence, and nonproliferative diabetic retinopathy. The patient presented to the emergency department about 2 hours after a fall that occurred while she was moving clothing at [facility], where she has been living since April. She reports a mild bump to her head, without any residual symptoms. Workup in the emergency department includes a urinalysis suggestive of UTI, and CT scan of abdomen pelvis suggest cystitis. Cystitis/recurrent urinary tract infections- Urine culture indeterminate Placed on ceftriaxone 2 g IV every 24 hours and patient is improving Will switch to p.o. Keflex at the time of discharge to complete a course Discontinue methenamine hippurate Status post fall- Multiple x-rays that are negative including right shoulder, right humerus, pelvis, thoracic spine, CT cervical spine, CT head. CT scan abdomen pelvis suggestive of cystitis Lumbar spine with moderate superior L5 endplate compression fracture that is likely chronic If patient has generalized weakness after being in hospital for treatment of UTI, she may require PT/OT assessment and treatment PT/OT consulted, pending CAD/stented coronary artery/hypertension- Continue clopidogrel, doxazosin, lisinopril, metoprolol succinate and spironolactone Diabetes mellitus- Changed Toujeo from 40 to 30 units subcu every morning Hold lisinopril 10 mg p.o. 3 times daily Placed on Accu-Cheks with NovoLog SSI as noted Admission and Anticipated Discharge Date Admission Date: September 18, 2024 Subjective Patient feels well overall. Denies chest pain or shortness of breath. She does have some aches and pains all over, possibly was a result of the mechanical fall Review of Systems Review of Systems: All systems reviewed & are unremarkable except as noted in Subjective Physical Exam Physical Exam: General: Awake, conversant Heart: S1, S2/regular rate and rhythm, no murmur rubs or gallops Lungs: Clear to auscultation bilaterally. Normal effort Abdomen: Soft/nontender/nondistended. No hepatosplenomegaly Extremities: No clubbing/cyanosis. No edema Behavior: Appropriate, cooperative Results & Data Results & Data Vital Signs (Past 12 Hours) Vital Signs Temp Pulse Pulse Resp BP Pulse Ox O2 Del Method 09/21/24 07:25 36.3 C L 54 L 19 111/69 97 Nasal Cannula 09/21/24 03:01 36.5 C 16 105/70 94 Nasal Cannula 09/20/24 23:33 71 O2 Flow Rate 09/21/24 07:25 1 09/21/24 03:01 1 09/20/24 23:33 PG Care Time/CCT Total # of Minutes Spent Total Time Spent with Patient: Total time spent is greater than 50% in coordination of care (as documented) at patient's floor/unit and/or counseling patient: Coding Level of Care Code 49083 SUB INP/OBS CARE 2/35MIN Diagnoses Cystitis N30.90 Recurrent UTI (urinary tract infection) N39.0 Diabetic peripheral neuropathy E11.42 Overactive bladder N32.81 Fall W19.XXXA Encounter type: initial encounter Type 2 diabetes mellitus with insulin therapy E11.9; Z79.4 (5) Fall Encounter type: initial encounter Qualified Code(s): W19.XXXA - Unspecified fall, initial encounter
[2024-09-22 10:59] VITALS: BP 161/78; PULSE 53; RESP 20; TEMP 97.9; O2SAT 91
--- NOTE | 2024-09-22 12:26 | Discharge Summary ---
Date of Service September 22, 2024 Admission HPI Per Admitting Provider The patient is a 83-year-old female with a past medical history including diabetic nephropathy, gait apraxia, hypertension, diabetic peripheral neuropathy, stented coronary artery, stroke with residual deficit, history of recurrent UTI, urinary incontinence, and nonproliferative diabetic retinopathy. The patient presented to the emergency department about 2 hours after a fall that occurred while she was moving clothing at [facility], where she has been living since April. She reports a mild bump to her head, without any residual symptoms. She reports taking all her medication as directed as directed, but has not had her evening medications at this time. Workup in the emergency department includes a urinalysis suggestive of UTI, and CT scan of abdomen pelvis suggest cystitis. The patient is assessed in the ED under the trauma protocol, and will therefore be admitted to the PCU per trauma protocol. Principal Diagnosis Trauma status post fall. Internal bleeding, fractures ruled out Possible cystitis Discharge Exam General: Awake, conversant Heart: S1, S2/regular rate and rhythm, no murmur rubs or gallops Lungs: Clear to auscultation bilaterally. Normal effort Abdomen: Soft/nontender/nondistended. No hepatosplenomegaly Extremities: No clubbing/cyanosis. No edema Behavior: Appropriate, cooperative Discharge Data Allergies Allergy/AdvReac Type Severity Reaction Status Date / Time dapsone Allergy Intermediate Rash Verified 08/25/24 15:07 Sulfa (Sulfonamide Allergy Mild Unknown Verified 08/25/24 15:07 Antibiotics) latex Allergy Unknown Unknown Verified 08/25/24 15:07 ciprofloxacin AdvReac Intermediate "i blew up Verified 08/25/24 15:07 like a balloon" per pt adhesive AdvReac Unknown Unknown Verified 08/25/24 15:07 metronidazole [From Flagyl] AdvReac Unknown Unknown Verified 08/25/24 15:07 red dye AdvReac Unknown Unknown Verified 08/25/24 15:07 Consultations 09/17/24 23:22 ED Decision to Admit Stat Ordered Studies 09/17/24 19:28 CT cervical spine wo con Stat CT head/brain wo con Stat 09/17/24 20:06 CT abd pelvis IV con only Stat 09/18/24 13:20 CT Abd and Pelvis [CT abd pelvis oral and IV con] Stat Hospital Course (1) Cystitis: (2) Recurrent UTI (urinary tract infection): (3) Diabetic peripheral neuropathy: (4) Overactive bladder: (5) Fall: (6) Type 2 diabetes mellitus with insulin therapy: Plan The patient is a 83-year-old female with a past medical history including diabetic nephropathy, gait apraxia, hypertension, diabetic peripheral neuropathy, stented coronary artery, stroke with residual deficit, history of recurrent UTI, urinary incontinence, and nonproliferative diabetic retinopathy. The patient presented to the emergency department about 2 hours after a fall that occurred while she was moving clothing at [facility], where she has been living since April. She reports a mild bump to her head, without any residual symptoms. Workup in the emergency department includes a urinalysis suggestive of UTI, and CT scan of abdomen pelvis suggest cystitis. Cystitis/recurrent urinary tract infections- Urine culture indeterminate Placed on ceftriaxone IV every 24 hours and patient is improving Will switch to p.o. Keflex at the time of discharge to complete a course Status post fall- Multiple x-rays that are negative including right shoulder, right humerus, pelvis, thoracic spine, CT cervical spine, CT head. CT scan abdomen pelvis suggestive of cystitis Lumbar spine with moderate superior L5 endplate compression fracture that is likely chronic Patient had continued generalized weakness even after treatment of UTI PT/OT recommended rehab CAD/stented coronary artery/hypertension- Continue clopidogrel, doxazosin, lisinopril, metoprolol succinate and spironolactone Diabetes mellitus- Resume home medications Discharge to rehab today Total Time Total Time Spent Total Time Spent (In Minutes): 35 Discharge Plan Discharge Items Patient Disposition: Transfer Inpatient Rehab Fac Reason For Visit: TRAUMA, S/P FALL, UTI Discharge Diagnosis: Trauma status post fall. Internal bleeding, fractures ruled out Possible cystitis Condition on Discharge: Good Activity: Resume your previous activity Non-emergency contact: Primary Care Provider Call non-emergency contact if: you have any medication questions and your symptoms worsen Follow-up/Referrals: Markus Castillo MD [Primary Care Provider] - Diet: Carb Consistent or DM2 and Heart Healthy Addtl Attending Provider Instructions: Advised to follow-up with PCP in 1 week Stand-Alone Forms: My [facility] Skilled Items Patient informed of condition?: Yes DNR: Yes Discharge Level of Care: Acute rehab Communicable Disease: No Discharge Prognosis: Stable Lines: None Urinary Catheter: No Medications and DC Order Prescriptions: New cephalexin 500 mg capsule 500 mg PO BID 2 Days Qty: 4 0RF Continued (DME) blood-glucose meter [OneTouch Verio Reflect Meter] Misc See Rx Instructions .Route Qty: 1 0RF Rx Instructions: As directed (DME) lancets [OneTouch Delica Plus Lancet] 33 gauge misc See Rx Instructions .ROUTE .MEDSUPPLY Qty: 400 3RF Rx Instructions: use to test 4 times daily (DME) pen needle, diabetic [BD Ultra-Fine Cris Pen Needle] 32 gauge x 5/32" needle See Rx Instructions .ROUTE .MEDSUPPLY Qty: 400 3RF Rx Instructions: use 4 per day with insulin injections metoprolol succinate [Toprol XL] 50 mg tablet extended release 24 hr 50 mg PO QAM Qty: 90 3RF duloxetine 60 mg capsule,delayed release(DR/EC) 60 mg PO DAILY Qty: 30 5RF atorvastatin [Lipitor] 40 mg tablet 40 mg PO HS Qty: 90 3RF methenamine hippurate 1 gram tablet 1 g PO BID Qty: 180 5RF cranberry 500 mg capsule 500 mg PO QAM hydroxyzine HCl 10 mg tablet 10 mg PO BID triamcinolone acetonide 0.1 % cream 1 applic topical BID Qty: 30 1RF Rx Instructions: apply to affected areas for itching...use with ketoconazole and barrier cream (DME) CrispifyTouch Verio test strips Strip See Rx Instructions .ROUTE .MEDSUPPLY Qty: 300 3RF Rx Instructions: test 4 times daily ketoconazole 2 % cream 1 applic topical BID 14 Days Qty: 30 1RF benzonatate 100 mg capsule 100 mg PO TID PRN (Reason: Cough) ergocalciferol (vitamin D2) 50 mcg (2,000 unit) capsule 50 mcg PO DAILY ondansetron HCl 4 mg tablet 4 mg PO Q4 PRN (Reason: Nausea And Vomiting) PreserVision AREDS-2 250-90-40-1 mg Capsule 1 tab PO BID clopidogrel [Plavix] 75 mg tablet 75 mg PO QAM lidocaine 5 % adhesive patch,medicated 1 patch topical DAILY Rx Instructions: apply to lower back 1 time a day for pain for up to 12 hours lisinopril 20 mg tablet 20 mg PO QAM spironolactone [Aldactone] 25 mg tablet 12.5 mg PO QAM doxazosin 1 mg tablet 1 mg PO QAM Gemtesa 75 mg tablet 75 mg PO QAM metoprolol succinate 50 mg tablet extended release 24 hr 50 mg PO QPM insulin lispro [Humalog KwikPen Insulin] 100 unit/mL insulin pen 10 unit subcut TID insulin glargine U-300 conc [Toujeo Max U-300 SoloStar] 300 unit/mL (3 mL) insulin pen 40 unit subcut QAM loperamide [Imodium A-D] 2 mg Tablet 2 mg PO Q8 PRN (Reason: Diarrhea) Probiotic Digestive Health 30 billion cell Capsule 1 cap PO DAILY Rx Instructions: pt uses gummy...not clear on strength multivitamin with minerals Tablet 1 tab PO DAILY Discharge Orders: Discharge Order (Routine); Ordered 09/22/24 Ordered By: Shea Goins Admission Data Admit Date/Time: 09/18/24 00:25 Attending Provider: Shea Goins Admit Provider: Brandin Collins Primary Care Provider: Markus Castillo V. Other Providers: Rolando [facility] Other Interventions: Discharge Summary Assessment (RN) Last Done: 09/22/24 14:04
== END 2024-09-22 15:18 | DRG 690 ==
LOC: ED 19:22 → 4W 09-18 00:25 → SUATTDRO 09-18 00:25 → 4W 09-18 01:46

== ENCOUNTER 2024-12-10 13:29 | Inpatient (IN) ==
--- NOTE | 2024-12-10 14:04 | Emergency Department Note ---
Impression & Plan Acute alteration in mental status, Urinary tract infection, Abdominal pain, acute, left lower quadrant ED Provider Note NAME: DALY BEATTY AGE: 84 SEX: F : 1940 ARRIVES VIA: Ambulance INFORMANT: Patient, ED PROVIDER(S): Eliecer Porras DO CHIEF COMPLAINT: Abdominal pain HPI: The patient is an 84-year-old female who presented to the emergency department from her care home for an evaluation of altered mental status. The patient was also complaining of left lower quadrant abdominal pain. She has a history of back injury. She does have a lidocaine patch but she has not been using pain medication. Reportedly she was difficult to arouse at the care home and was sent to the emergency department for further evaluation. The patient states she has left lower quadrant abdominal pain she is awake and alert and answers questions well. ROS: See above HPI for pertinent positives & negatives. A total of 10 systems reviewed and were otherwise negative. PAST MEDICAL HISTORY: See Below PAST SURGICAL HISTORY: See Below FAMILY HISTORY: See Below SOCIAL HISTORY: See Below HOME MEDICATIONS: See Below ALLERGIES: See Below VITALS: See Below PHYSICAL EXAMINATION: GENERAL: Patient is awake alert in no acute distress patient is resting comfortably and showing no signs of anxiety EYES: The conjunctivae are clear. The pupils are round and reactive. EARS, NOSE, MOUTH AND THROAT: The nose is without any evidence of any deformity. NECK: The neck is nontender and supple. RESPIRATORY: Normal respiratory effort is noted there is no evidence of wheezing rhonchi or rales CARDIOVASCULAR: Regular rate and rhythm noted there no murmurs rubs or gallops normal S1 normal S2. GASTROINTESTINAL: The abdomen is soft and mildly distended. There is left lower quadrant tenderness to palpation. There is no guarding rigidity. MUSCULOSKELETAL/EXTREMITIES: There is no evidence of gross deformity full range of motion is noted in the hips and shoulders. SKIN: There is no obvious evidence of any rash. trace pedal edema is noted bilaterally. NEUROLOGIC: Patient is awake alert and oriented x3 strength is symmetric patellar reflexes are 2+ bilaterally MEDICAL DECISION MAKING: The patient is an 84-year-old female who presented to the emergency department reportedly with an altered mental status. The patient was awake and alert and answering questions appropriately but she would fall asleep easily and have trouble waking up. The patient was treated with IV fluids as well as IV antibiotics for presumed urinary tract infection. She was reevaluated multiple times. I discussed the patient's laboratory and radiographic studies with her. Given her findings I also discussed her condition with the on-call [facility] hospitalist. They have agreed to evaluate the patient in the emergency department for further management and disposition. Triage Nursing notes reviewed. Prior medical records reviewed Vital Signs: reviewed and remarkable for elevated blood pressure. The patient was also noted to have hypoxia when she was asleep. She was placed on supplemental oxygen with improvement of this. Differential diagnosis: Etiologies such as appendicitis, diverticulitis, obstruction, inflammatory bowel disease, renal colic, PUD, biliary pathology, pancreatitis, mesenteric ischemia, aortic pathology, infections, genitourinary, UTI, perforated viscus, as well as others were entertained. ER treatment provided: See below Diagnostics interpreted by me: ECG: EKG was obtained in the emergency department. My interpretation is sinus rhythm at 51 bpm. There were no PVCs noted. First-degree AV block was noted. This was compared to a tracing from November 27, 2024. No changes were noted. Cardiac Monitoring: An order was placed for continuous cardiac monitoring. The monitor shows a rate of 62 bpm with sinus rhythm. Laboratory studies: As stated above and show below. Imaging studies: See below. Radiographic imaging was reviewed by myself Consultation(s): I discussed this case with Dr. Gomez who is on-call for the [facility] hospitalist group. Past Med/Surg History Problem List (Updated 12/10/24 @ 17:57 by Eliecer Porras DO) Abdominal pain, acute, left lower quadrant (Acute) Urinary tract infection (Acute) Acute alteration in mental status (Acute) Adrenal nodule Elevated TSH Acute UTI (Acute) Dysuria (Acute) Cystitis Fall (Acute) Diabetic nephropathy associated with type 2 diabetes mellitus Persistent microalbuminuria associated with type 2 diabetes mellitus Pressure ulcer Gait apraxia Pyelonephritis (Acute) Right sided sciatica (Acute) Abdominal pain, lower (Acute) Tiredness Hypertension Dermatitis Low back pain Overactive bladder Hypomagnesemia (Acute) Lumbar contusion (Acute) Left leg weakness (Acute) Nonproliferative diabetic retinopathy Diabetic peripheral neuropathy Stented coronary artery Loss of protective sensation of skin of foot H/O: stroke with residual effects Albuminuria Recurrent UTI (urinary tract infection) Urine incontinence (Chronic) Age-related cognitive decline (Chronic) Diabetic peripheral neuropathy associated with type 2 diabetes mellitus (Acute) Gait disturbance (Acute) Nephrolithiasis (Acute) Neuropathic pain of both feet (Acute) Vitamin D deficiency disease (Acute) Medical History Influenza A Closed compression fracture of lumbar vertebra (~2019) a chronic superior endplate compression fracture deformity of L5 per the MRI from 03/22/24 Type 2 diabetes mellitus with insulin therapy Hyperlipidemia IBS (irritable bowel syndrome) Spinal stenosis, lumbar region with neurogenic claudication Stroke-like symptom Numbness of left hand Humerus fracture Balance problem Stroke Fall Abnormal thyroid blood test Localized swelling of both lower legs Hypoglycemia Lupus Closed left humeral fracture (07/22/23) from a fall Interstitial lung disease Diabetes mellitus type 2, uncontrolled CAD (coronary artery disease) Hypertension Contact dermatitis Chronic cough Rash Herpes zoster, ocular Contusion of leg, left Gross hematuria Physical deconditioning Expressive aphasia Chronic diarrhea Spinal stenosis of lumbar region Cerebrovascular disease Family history of dementia Neurogenic claudication due to lumbar spinal stenosis Arm DVT (deep venous thromboembolism), acute Mitral regurgitation Recurrent UTI Hx of renal calculi C. difficile colitis Surgical History History of lithotripsy S/P cardiac catheterization Hx of cholecystectomy Family History Mother Alzheimer disease Hypertension Brother Diabetes Myocardial infarction Father Hypertension Sister Lung cancer Other Family history non-contributory Stroke Denies family history of Ovarian cancer Prostate cancer Breast cancer Colorectal cancer Social History Smoking Status: Never smoker Second Hand Exposure: No; Do You Dip or Chew Tobacco: No; Hx Alcohol Use: No Hx Substance Use: No Preferred Language: Korean Communication Ability: Effective Visual Impairment: No Limitations Hearing Ability: Normal 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: No Beliefs That Will Affect Care: None marital status: / Current Living Situation: Alone Current Living Situation Comment: daughter in law helps w/ care current occupational status: retired Feels Safe at Home: Yes Childhood Exposure to Second-Hand Smoke: No Dental Care, Regularly: No Physical Activity Frequency: Does not Exercise Seatbelt Use: always Sunscreen Use: No Assistive Devices: Walker and Wheelchair Allergies Allergies Allergy/AdvReac Type Severity Reaction Status Date / Time ciprofloxacin Allergy Severe "i blew up Verified 12/10/24 17:07 like a balloon" per pt dapsone Allergy Intermediate Rash Verified 12/10/24 17:07 Sulfa (Sulfonamide Allergy Mild Unknown Verified 12/10/24 17:07 Antibiotics) latex Allergy Unknown Unknown Verified 12/10/24 17:07 adhesive AdvReac Unknown Unknown Verified 12/10/24 17:07 metronidazole [From Flagyl] AdvReac Unknown Unknown Verified 12/10/24 17:07 red dye AdvReac Unknown Unknown Verified 12/10/24 17:07 Home Meds Home Medications Medication Instructions Recorded Confirmed vit C 250 mg-vit E 90 mg-zinc 40 1 tab PO BID 08/17/22 12/10/24 mg-copper 1 id-gprxac-oehepu capsule (PreserVision AREDS-2) ondansetron HCl 4 mg tablet 4 mg PO Q4 PRN Nausea And Vomiting 05/20/24 12/10/24 cranberry 500 mg capsule 500 mg PO QAM 08/04/24 12/10/24 hydroxyzine HCl 10 mg tablet 10 mg PO BID 08/04/24 12/10/24 L.acid,par,plant,rham-B.anim,bif,brev,inf,long 1 cap PO DAILY 09/17/24 12/10/24 30 billion cell capsule (Probiotic Digestive Health) clopidogrel 75 mg tablet (Plavix) 75 mg PO QAM 09/17/24 12/10/24 doxazosin 1 mg tablet 1 mg PO QAM 09/17/24 12/10/24 insulin glargine U-300 conc 300 40 unit subcut QAM 09/17/24 12/10/24 unit/mL (3 mL) subcutaneous pen (Toujeo Max U-300 SoloStar) lidocaine 5 % topical patch 1 patch topical DAILY Pain 09/17/24 12/10/24 multivitamin with minerals 1 tab PO DAILY 09/17/24 12/10/24 spironolactone 25 mg tablet 12.5 mg PO QAM 09/17/24 12/10/24 (Aldactone) vibegron 75 mg tablet (Gemtesa) 75 mg PO QAM 09/17/24 12/10/24 cholecalciferol (vitamin D3) 50 50 mcg PO DAILY 10/06/24 12/10/24 mcg (2,000 unit) capsule metoprolol succinate 50 mg 50 mg PO Q12 10/30/24 12/10/24 tablet,extended release 24 hr benzonatate 100 mg capsule 100 mg PO TID PRN Cough 12/01/24 12/10/24 insulin lispro 100 unit/mL 6 unit subcut TIDM 12/01/24 12/10/24 subcutaneous pen (Humalog KwikPen (U-100) Insulin) lisinopril 20 mg tablet 40 mg PO QAM 12/01/24 12/10/24 ketoconazole 2 % topical cream 1 applic topical BID PRN Itching 12/10/24 12/10/24 Previous Rx's Medication Instructions Recorded OneTouch Verio Reflect Meter #1 ea 08/05/21 (blood-glucose meter) OneTouch Delica Plus Lancet 33 #400 ea 07/28/22 gauge (lancets) OneTouch Verio test strips (blood #300 ea 05/29/24 sugar diagnostic) triamcinolone acetonide 0.1 % 1 applic topical BID #30 grams 05/29/24 topical cream atorvastatin 40 mg tablet (Lipitor) 40 mg PO HS #90 tabs 07/17/24 methenamine hippurate 1 gram tablet 1 g PO BID #180 tabs 10/14/24 pen needle, diabetic 32 gauge x #400 ea 11/12/24" duloxetine 60 mg capsule,delayed 60 mg PO DAILY #30 caps 11/13/24 release loperamide 2 mg tablet (Imodium 2 mg PO Q8 PRN Diarrhea #90 tabs 12/01/24 A-D) levothyroxine 25 mcg capsule 25 mcg PO DAILY #30 caps 12/02/24 Results & Data (ED) Vital Signs Vital Signs - 24 hr 12/10/24 13:34 12/10/24 13:45 12/10/24 14:01 Temperature 37.1 C Temperature Source Oral Pulse Rate 61 60 Pulse Rate [Apical] Respiratory Rate 24 Blood Pressure 174/102 H Blood Pressure [Right Arm] Blood Pressure Mean 126 Blood Pressure Mean [Right Arm] Pulse Oximetry 95 Oxygen Delivery Method Room Air Oxygen Flow Rate Sepsis Recent Fever Within 48 Hours No Sepsis New/Unexplained Change in Mental Status No Sepsis Action Taken by Nursing No Action Required Oxygen Flow Rate - Titration Pulse Oximetry Post Tiitration 12/10/24 15:17 12/10/24 15:45 Temperature Temperature Source Pulse Rate Pulse Rate [Apical] 62 Respiratory Rate 18 Blood Pressure Blood Pressure [Right Arm] 170/79 H Blood Pressure Mean Blood Pressure Mean [Right Arm] 109 Pulse Oximetry 95 81 L Oxygen Delivery Method Nasal Cannula Oxygen Flow Rate 0 Sepsis Recent Fever Within 48 Hours Sepsis New/Unexplained Change in Mental Status Sepsis Action Taken by Nursing Oxygen Flow Rate - Titration 2 Pulse Oximetry Post Tiitration 96 Home Medications Current Medication List: was personally reviewed by me Laboratory Data Attestation: I reviewed the patient's lab results. 12/10/24 13:40 12/10/24 13:40 Lab Results 12/10/24 12/10/24 Range/Units 13:40 Unknown WBC 7.34 (4.8-10.8) K/ul RBC 3.87 L (4.20-5.40) M/uL Hgb 11.4 L (12.0-16.0) g/dl Hct 34.8 L (37.0-47.0) % MCV 89.9 (80.0-100.0) fL MCH 29.5 (25.0-34.0) pg MCHC 32.8 (32.0-36.0) g/dL RDW Std Deviation 41.3 (36.4-46.3) fL RDW Coeff of Linda 12.6 (11.5-14.5) % Plt Count 215 (130-400) K/uL MPV 9.9 (9.4-12.4) fL Immature Gran % (Auto) 0.7 % Neut % (Auto) 54.7 % Lymph % (Auto) 33.7 % [place] % (Auto) 8.2 % Eos % (Auto) 2.3 % Baso % (Auto) 0.4 % Neut # (Auto) 4.02 (1.40-6.50) K/uL Lymph # (Auto) 2.47 (1.20-3.40) K/uL [place] # (Auto) 0.60 H (0.11-0.59) K/uL Eos # (Auto) 0.17 (0.00-0.50) K/uL Baso # (Auto) 0.03 (0.00-0.20) K/uL Immature Gran # (Auto) 0.05 (0.01-0.20) K/uL Sodium 140 (136-145) mmol/L Potassium 4.0 (3.5-5.1) mmol/L Chloride 105 (98-107) mmol/L Carbon Dioxide 29 (21-32) mmol/L Anion Gap 6 (3-11) BUN 26 H (6-23) mg/dl Creatinine 0.92 (0.6-1.2) mg/dl Est Cr Clr Drug Dosing 42.0 ml/min eGFR 61.40 BUN/Creatinine Ratio 28.3 H (10-20) Glucose 236 H (70-99(Fasting)) mg/dl Calcium 9.5 (8.6-10.3) mg/dl Total Bilirubin 0.5 (0.2-1.0) mg/dl AST 20 (13-39) U/L ALT 19 (7-52) U/L Alkaline Phosphatase 49 (34-104) U/L Troponin I High Sens 8.8 (0-14) pg/ml Total Protein 6.9 (6.0-8.3) gm/dl Albumin 3.5 (3.4-5.0) gm/dl Globulin 3.4 (2.5-4.0) gm/dl Albumin/Globulin Ratio 1.0 (0.9-2) Lipase 37 (11-82) U/L Urine Color Yellow Urine Appearance Clear (Clear) Urine pH 5.5 (4.5-7.5) Ur Specific [place] 1.015 (1.000-1.030) Urine Protein Negative (Negative) Urine Glucose (UA) Negative (Negative) Urine Ketones Negative (Negative) Urine Blood Negative (Negative) Urine Nitrite Negative (Negative) Urine Bilirubin Negative (Negative) Urine Urobilinogen Negative (Negative) Ur Leukocyte Esterase 1+ H (Negative) Urine RBC 3-5 H (0-2) /hpf Urine WBC 6-10 H (0-5) /hpf Ur Epithelial Cells 11-20 H (0-2) /hpf Urine Bacteria 1+ H (None Seen) Urine Comment Administered Medications Discontinued Medications Sodium Chloride (Nss) 500 mls @ 999 mls/hr IV .Q31M STA Stop: 12/10/24 14:31 Last Infusion: 12/10/24 15:21 Dose: Infused Documented By: Admin: 12/10/24 14:19 Dose: 999 mls/hr Documented By: TULIO Acetaminophen (Ofirmev) 1,000 mg in 100 mls @ 400 mls/hr IV NOW STA Stop: 12/10/24 14:15 Last Infusion: 12/10/24 15:21 Dose: Infused Documented By: Admin: 12/10/24 14:19 Dose: 400 mls/hr Documented By: TULIO Ceftriaxone Sodium (Rocephin) 2,000 mg in 50 mls @ 100 mls/hr IV NOW STA Stop: 12/10/24 16:59 Last Admin: 12/10/24 16:45 Dose: 100 mls/hr Documented By: TULIO Ioversol (Optiray 320 100ml) 90 ml IV ONCE ONE Stop: 12/10/24 15:22 Last Admin: 12/10/24 15:21 Dose: 90 ml Documented By: SERGIO Ondansetron HCl (Ondansetron Inj 2 Mg/Ml 2 Ml Vial) 4 mg IV NOW STA Stop: 12/10/24 14:02 Last Admin: 12/10/24 14:19 Dose: 4 mg Documented By: TULIO Imaging Data Attestation: I personally reviewed and interpreted this imaging study as follows: My Impression: CT of the abdomen and pelvis was obtained in the emergency department. My interpretation is no free air or definite bowel obstruction, final report below Radiologist's Impression: Abdomen/Pelvis CT 12/10/24 14:01 CT SCAN OF THE ABDOMEN AND PELVIS WITH IV CONTRAST CLINICAL HISTORY: Left lower quadrant abdominal pain. COMPARISON STUDY: CT of the abdomen and pelvis September 18, 2024. TECHNIQUE: Following the IV administration of 90 cc of Optiray 320, CT scan of the abdomen and pelvis is performed from the lung bases to the proximal femora. Images are reviewed in the axial, sagittal, and coronal planes. IV contrast was administered without complication. A dose lowering technique was utilized adhering to the principles of ALARA. CT DOSE: 1442.64 mGy.cm FINDINGS: Cardiomegaly is again noted. Subpleural reticulation and groundglass opacities with mild traction bronchiectasis is similar to prior CT. This represents interstitial lung disease. There is no pneumatosis, free air or portal venous gas. A 1.9 cm left adrenal nodule is unchanged. This favors an adenoma. Right adrenal gland, spleen are unremarkable. There are no hepatic lesions. Mild biliary ductal dilatation is unchanged and likely related to cholecystectomy. There is moderate bilateral renal cortical thinning. Left-sided extrarenal pelvis is unchanged. There is no hydronephrosis. There is a 3 mm left upper pole renal calculus. There are no ureteral calculi. The bladder is mildly distended. There is bladder wall thickening with mild adjacent stranding. No evidence for a bowel obstruction. Colonic diverticulosis without evidence for acute diverticulitis. There is no evidence for acute appendicitis. There is no lymphadenopathy. There are no fluid collections. Old L5 compression fracture is unchanged. IMPRESSION: 1. Bladder wall thickening with adjacent stranding. This could be correlated with urinalysis to exclude cystitis. 2. Small left renal calculus. No ureteral calculi or hydronephrosis. 3. No bowel obstruction. No bowel wall thickening. Colonic diverticulosis. No evidence for acute diverticulitis. ACT 112: Negative or not required by law. Electronically signed by: Tristin Hilliard M.D. 12/10/2024 3:54 PM Chest X-Ray 12/10/24 14:01 XR chest 1V portable CLINICAL HISTORY: ams COMPARISON STUDY: 09/17/2024 FINDINGS: There is stable prominent cardiomegaly with mild pulmonary vascular congestion. Stable mild reticular opacities in the lung bases. No lobar consolidation or pleural effusion. No pneumothorax. IMPRESSION: Stable exam with mild CHF and possible early interstitial lung disease. ACT 112: Negative or not required by law. Electronically signed by: Donaldo Garcia M.D. 12/10/2024 3:[address] 12/10/24 14:01 CT head/brain wo con CLINICAL HISTORY: 84 years-old Female with AMS. Acutely altered mental status TECHNIQUE: Multiple axial CT images of the head were obtained without contrast. A dose lowering technique was utilized adhering to the principles of ALARA. CT DOSE: 625.8 mGy.cm COMPARISON: 09/17/2024 FINDINGS: No acute intracranial hemorrhage, midline shift, intracranial mass, hydrocephalus, territorial ischemia or abnormal extra-axial collection. Involutional changes with chronic microvascular ischemic disease. Chronic left caudate nuclear head infarct. Chronic left cerebellar lacunar infarct. The calvarium is intact. The paranasal sinuses, mastoid air cells, and middle ear cavities are clear. IMPRESSION: 1. No acute intracranial abnormality. 2. Chronic findings as above. ACT 112: Negative or not required by law. The above report was generated using voice recognition software. It may contain grammatical, syntax or spelling errors. Electronically signed by: Jarad Valdez M.D. 12/10/2024 4:00 PM Discharge Plan Visit Data Chief Complaint: Urinary Symptoms ED Provider: Eliecer Porras Discharge Problem: Acute alteration in mental status, Urinary tract infection, Abdominal pain, acute, left lower quadrant Patient Disposition: Being Evaluated by Hospitalist Condition: Fair Forms Stand Alone Forms: [facility] Prescriptions Prescriptions: No Action (DME) blood-glucose meter [OneTouch Verio Reflect Meter] Misc See Rx Instructions .Route Qty: 1 0RF Rx Instructions: As directed (DME) lancets [OneTouch Delica Plus Lancet] 33 gauge misc See Rx Instructions .ROUTE .MEDSUPPLY Qty: 400 3RF Rx Instructions: use to test 4 times daily atorvastatin [Lipitor] 40 mg tablet 40 mg PO HS Qty: 90 3RF methenamine hippurate 1 gram tablet 1 g PO BID Qty: 180 5RF (DME) pen needle, diabetic 32 gauge x 5/32" needle See Rx Instructions .ROUTE .MEDSUPPLY Qty: 400 3RF Rx Instructions: use 4 per day with insulin injections duloxetine 60 mg capsule,delayed release(DR/EC) 60 mg PO DAILY Qty: 30 5RF loperamide [Imodium A-D] 2 mg tablet 2 mg PO Q8 PRN (Reason: Diarrhea) Qty: 90 0RF levothyroxine 25 mcg capsule 25 mcg PO DAILY Qty: 30 2RF benzonatate 100 mg capsule 100 mg PO TID PRN (Reason: Cough) cranberry 500 mg capsule 500 mg PO QAM hydroxyzine HCl 10 mg tablet 10 mg PO BID metoprolol succinate 50 mg tablet extended release 24 hr 50 mg PO Q12 triamcinolone acetonide 0.1 % cream 1 applic topical BID Qty: 30 1RF Rx Instructions: apply to affected areas for itching...use with ketoconazole and barrier cream (DME) OneTouch Verio test strips Strip See Rx Instructions .ROUTE .MEDSUPPLY Qty: 300 3RF Rx Instructions: test 4 times daily cholecalciferol (vitamin D3) 50 mcg (2,000 unit) capsule 50 mcg PO DAILY ondansetron HCl 4 mg tablet 4 mg PO Q4 PRN (Reason: Nausea And Vomiting) PreserVision AREDS-2 250-90-40-1 mg Capsule 1 tab PO BID clopidogrel [Plavix] 75 mg tablet 75 mg PO QAM lidocaine 5 % adhesive patch,medicated 1 patch topical DAILY Rx Instructions: apply to lower back 1 time a day for pain for up to 12 hours spironolactone [Aldactone] 25 mg tablet 12.5 mg PO QAM doxazosin 1 mg tablet 1 mg PO QAM Gemtesa 75 mg tablet 75 mg PO QAM insulin glargine U-300 conc [Toujeo Max U-300 SoloStar] 300 unit/mL (3 mL) insulin pen 40 unit subcut QAM Probiotic Digestive Health 30 billion cell Capsule 1 cap PO DAILY multivitamin with minerals Tablet 1 tab PO DAILY lisinopril 20 mg tablet 40 mg PO QAM insulin lispro [Humalog KwikPen Insulin] 100 unit/mL insulin pen 6 unit subcut TIDM ketoconazole 2 % cream 1 applic topical BID PRN (Reason: Itching) Referrals Referrals: Markus Castillo MD [Primary Care Provider] -
[2024-12-10] MEDS: ACETAMINOPHEN 1,000 MG/100 ML VIAL IV STA (14:19)
[2024-12-10] MEDS: ONDANSETRON INJ 2 MG/ML 2 ML VIAL IV STA (14:19)
[2024-12-10] MEDS: SODIUM CHLORIDE 0.9% 500 ML IV STA (14:19)
[2024-12-10 14:30] LABS: Hematocrit (blood only) 34.8 % (37.0-47.0); Hemoglobin 11.4 g/dl (12.0-16.0); Immature Granulocytes # (auto) 0.05 K/uL (0.01-0.20); Immature Granulocytes % (auto) 0.7 %; Mean Corpuscular Hemoglobin 29.5 pg (25.0-34.0); Mean Corpuscular Volume 89.9 fL (80.0-100.0); Platelet Count 215 K/uL (130-400); RDW Standard Deviation 41.3 fL (36.4-46.3); Red Blood Count 3.87 M/uL (4.20-5.40); White Blood Count 7.34 K/ul (4.8-10.8)
[2024-12-10 14:47] LABS: Alanine Aminotransferase 19.0 U/L (7-52); Albumin Globulin Ratio 1.0 (0.9-2); Albumin Level 3.5 gm/dl (3.4-5.0); Alkaline Phosphatase 49.0 U/L (34-104); Anion Gap 6.0 (3-11); Bilirubin,Total 0.5 mg/dl (0.2-1.0); Blood Urea Nitrogen 26.0 mg/dl (6-23); Calcium 9.5 mg/dl (8.6-10.3); Carbon Dioxide 29.0 mmol/L (21-32); Chloride 105.0 mmol/L (98-107); Creatinine Clr Calc Pharmacy 42.0 ml/min; Globulin 3.4 gm/dl (2.5-4.0); Glucose 236.0 mg/dl (70-99(Fasting)); Lipase 37.0 U/L (11-82); Potassium 4.0 mmol/L (3.5-5.1); Sodium 140.0 mmol/L (136-145); Total Protein 6.9 gm/dl (6.0-8.3)
--- NOTE | 2024-12-10 15:06 | XRay Report ---
XR chest 1V portable CLINICAL HISTORY: ams COMPARISON STUDY: 09/17/2024 FINDINGS: There is stable prominent cardiomegaly with mild pulmonary vascular congestion. Stable mild reticular opacities in the lung bases. No lobar consolidation or pleural effusion. No pneumothorax. IMPRESSION: Stable exam with mild CHF and possible early interstitial lung disease. ACT 112: Negative or not required by law. Electronically signed by: Donaldo Garcia M.D. 12/10/2024 3:04 PM
[2024-12-10] MEDS: OPTIRAY 320 100ml IV ONE (15:21)
[2024-12-10 15:23] LABS: Appearance Urine Clear (Clear); Glucose Urine UA Negative (Negative)
--- NOTE | 2024-12-10 15:56 | CT Scan Report ---
CT SCAN OF THE ABDOMEN AND PELVIS WITH IV CONTRAST CLINICAL HISTORY: Left lower quadrant abdominal pain. COMPARISON STUDY: CT of the abdomen and pelvis September 18, 2024. TECHNIQUE: Following the IV administration of 90 cc of Optiray 320, CT scan of the abdomen and pelvi s is performed from the lung bases to the proximal femora. Images are reviewed in the axial, sagittal , and coronal planes. IV contrast was administered without complication. A dose lowering technique wa s utilized adhering to the principles of ALARA. CT DOSE: 1442.64 mGy.cm FINDINGS: Cardiomegaly is again noted. Subpleural reticulation and groundglass opacities with mild tr action bronchiectasis is similar to prior CT. This represents interstitial lung disease. There is no pneumatosis, free air or portal venous gas. A 1.9 cm left adrenal nodule is unchanged. This favors an adenoma. Right adrenal gland, spleen are unremarkable. There are no hepatic lesions. Mild biliary du ctal dilatation is unchanged and likely related to cholecystectomy. There is moderate bilateral renal cortical thinning. Left-sided extrarenal pelvis is unchanged. There is no hydronephrosis. There is a 3 mm left upper pole renal calculus. There are no ureteral calculi. The bladder is mildly distended. There is bladder wall thickening with mild adjacent stranding. No evidence for a bowel obstruction. Colonic diverticulosis without evidence for acute diverticulitis. There is no evidence for acute appe ndicitis. There is no lymphadenopathy. There are no fluid collections. Old L5 compression fracture is unchanged. IMPRESSION: 1. Bladder wall thickening with adjacent stranding. This could be correlated with urinalysis to exclu de cystitis. 2. Small left renal calculus. No ureteral calculi or hydronephrosis. 3. No bowel obstruction. No bowel wall thickening. Colonic diverticulosis. No evidence for acute dive rticulitis. ACT 112: Negative or not required by law. Electronically signed by: Tristin Hilliard M.D. 12/10/2024 3:54 PM
--- NOTE | 2024-12-10 16:01 | CT Scan Report ---
CT head/brain wo con CLINICAL HISTORY: 84 years-old Female with AMS. Acutely altered mental status TECHNIQUE: Multiple axial CT images of the head were obtained without contrast. A dose lowering tech nique was utilized adhering to the principles of ALARA. CT DOSE: 625.8 mGy.cm COMPARISON: 09/17/2024 FINDINGS: No acute intracranial hemorrhage, midline shift, intracranial mass, hydrocephalus, territorial ischem ia or abnormal extra-axial collection. Involutional changes with chronic microvascular ischemic disea se. Chronic left caudate nuclear head infarct. Chronic left cerebellar lacunar infarct. The calvarium is intact. The paranasal sinuses, mastoid air cells, and middle ear cavities are clear . IMPRESSION: 1. No acute intracranial abnormality. 2. Chronic findings as above. ACT 112: Negative or not required by law. The above report was generated using voice recognition software. It may contain grammatical, syntax o r spelling errors. Electronically signed by: Jarad Valdez M.D. 12/10/2024 4:00 PM
--- NOTE | 2024-12-10 16:08 | Electrocardiogram Report ---
Test Reason : Blood Pressure : */* mmHG Vent. Rate : 51 BPM Atrial Rate : 51 BPM P-R Int : 250 ms QRS Dur : 86 ms QT Int : 460 ms P-R-T Axes : 60 -9 76 degrees QTcB Int : 423 ms Sinus bradycardia with 1st degree A-V block Otherwise normal ECG When compared with ECG of 27-Nov-2024 12:33, Sinus rhythm has replaced Electronic ventricular pacemaker Confirmed by Eliecer Perez ([id number]) on 12/10/2024 4:08:32 PM Referred By: REFERRED SELF Confirmed By: Eliecer Perez
[2024-12-10] MEDS: cefTRIAXone SODIUM 2,000 MG/50 ML BAG IV STA (16:45)
--- NOTE | 2024-12-10 18:28 | History & Physical Report ---
Date of Service December 10, 2024 Assessment & Plan (1) Urinary tract infection: Plan: Sofia Carpenter is a 84 yo woman with PMH of recurrent UTI, urinary incontinence, strokes, insulin dependent diabetes, chronic low back pain. neuropathy she's has had multiple admission for recurrent UTI, but still unable to see urologist. in addition, she's have worsening diarrhea for several weeks. since her gallbladder surgery decades ago, she's have chronic diarrhea on 12/10/2024, her daugher in law, Katya ([phone]), noticed AMS, dysuria, and brought her to our hospital for evaluation. when she's was sleeping in the ED, she's was foud to be desaturate into the 80s and started supplemental oxygen. she will be admitted for management of UTI, septic encephalopathy. diarrhea and monitor for electrolyte I suspect she has undiagnosed sleep apnea, partially contribute to has daytime somnolence, her CT head is negative for bleeding, she's denied using any nacrotic. she only use hydroxyzine intermittent. 1. acute recurrent UTI 2. septic encephalopathy 3. daytime somnolence concerning for obstructive sleep apnea 4. hypoxic episode 5. diarrhea episode 6. urinary incontinence 7. insulin dependent diabetes ( home dose of 40 unt long acting and 10 units TID with meals) 8. chronic low back pain on cymbalta 9. neuropathy 10. hx of lupus 11. hx of CAD s/p stent 1. acute recurrent UTI ceftriaxone in the past, she growing dos santos-sensitive culture fluconazole urology evaluation 2. septic encephalopathy been having daytime somnolence suspect UTI superimpose on untreated sleep apnea nocturnal oxygen 3. hypoxic episode, c/w supplemental oxygen suspect underlying sleep apnea 4. diarrhea episode that's been ongoing for many decade since her gallbalder surgery however, given her frequent hospitalization, empiric check for C. difficile, stool PCR empiric coverage with vancomycin oral till her C. difficile return monitor for her potassium and magnesium level 5. urinary incontinence vibegron 75mg incontinence started 3-4 years ago 6. hx of multiple stroke, hx of cAD s/p stent (done at [facility]) , plavix and lipitor 40mg 7. hypertension, she's on metoprolol ER 50mg and lisinopril 20mg per the patient, she unsure if she's on aldactone 25mg she' also taking doxazosin 1mg 8. chronic low back pain, cymablta 60mg morning 9, insulin dependent diabetes, she's on lantus 40 units morning, and then humalog 10 TID 10.recurrent UTI, she's methenamine , she's on cranberry 11. code status; full code emergency contact: Katya [phone] (2) Acute alteration in mental status: (3) Diarrhea: History of Present Illness Chief Complaint: recurrent UTI limited oral intake hypoxic episode (into the 80) daytime somnolence diarrhea for many year Primary Care Provider: Markus Castillo MD Sofia Carpenter is a 84 yo woman with PMH of recurrent UTI, urinary incontinence, stroke, insulin dependent diabetes, hypertension, neuropathy she's been having diarrhea for several decade and acutely get worse, been having continuous diarrhea for several days in addition, she has had multiple hospital admission for recurrent UTI, was suppose to see urology and appointment won't be there till Feb 2025 on 12/10/2024, her daughter in law noticed change in mental status, somnolence and brought her to our ED for evaluation. she's was found to has UTI, and started on IV antibiotics in addition, when she's was felling asleep, her O2 sat drop into the low 80s, and started with supplemental oxygen for her day time somnolence, patient and daughter in law mention insomnia, frequent night awaken. they never formally test for MUKUND. for her diarrhea, that was started several decades ago when she live in [place]. she stated diarrhea started after the gallbladder surgery she been fairly immobile since her back injury. because of covid pandemic, she did not has opportunity to see neurosurgery she was prescribed cymablta for pain control Allergies Allergy/AdvReac Type Severity Reaction Status Date / Time ciprofloxacin Allergy Severe "i blew up Verified 12/10/24 17:07 like a balloon" per pt dapsone Allergy Intermediate Rash Verified 12/10/24 17:07 Sulfa (Sulfonamide Allergy Mild Unknown Verified 12/10/24 17:07 Antibiotics) latex Allergy Unknown Unknown Verified 12/10/24 17:07 adhesive AdvReac Unknown Unknown Verified 12/10/24 17:07 metronidazole [From Flagyl] AdvReac Unknown Unknown Verified 12/10/24 17:07 red dye AdvReac Unknown Unknown Verified 12/10/24 17:07 Home Medications Medication Instructions Recorded Confirmed Type OneTouch Verio Reflect Meter #1 ea 08/05/21 10/30/24 Rx (blood-glucose meter) OneTouch Delica Plus Lancet 33 #400 ea 07/28/22 10/30/24 Rx gauge (lancets) vit C 250 mg-vit E 90 mg-zinc 40 1 tab PO BID 08/17/22 12/10/24 History mg-copper 1 [id number] capsule (PreserVision AREDS-2) ondansetron HCl 4 mg tablet 4 mg PO Q4 PRN Nausea And Vomiting 05/20/24 12/10/24 History OneTouch Verio test strips (blood #300 ea 05/29/24 10/30/24 Rx sugar diagnostic) triamcinolone acetonide 0.1 % 1 applic topical BID #30 grams 05/29/24 12/10/24 Rx topical cream atorvastatin 40 mg tablet (Lipitor) 40 mg PO HS #90 tabs 07/17/24 12/10/24 Rx cranberry 500 mg capsule 500 mg PO QAM 08/04/24 12/10/24 History hydroxyzine HCl 10 mg tablet 10 mg PO BID 08/04/24 12/10/24 History L.acid,par,plant,rham-B.anim,bif,brev,inf,long 1 cap PO DAILY 09/17/24 12/10/24 History 30 billion cell capsule (Probiotic Digestive Health) clopidogrel 75 mg tablet (Plavix) 75 mg PO QAM 09/17/24 12/10/24 History doxazosin 1 mg tablet 1 mg PO QAM 09/17/24 12/10/24 History insulin glargine U-300 conc 300 40 unit subcut QAM 09/17/24 12/10/24 History unit/mL (3 mL) subcutaneous pen (Toujeo Max U-300 SoloStar) lidocaine 5 % topical patch 1 patch topical DAILY Pain 09/17/24 12/10/24 History multivitamin with minerals 1 tab PO DAILY 09/17/24 12/10/24 History spironolactone 25 mg tablet 12.5 mg PO QAM 09/17/24 12/10/24 History (Aldactone) vibegron 75 mg tablet (Gemtesa) 75 mg PO QAM 09/17/24 12/10/24 History cholecalciferol (vitamin D3) 50 50 mcg PO DAILY 10/06/24 12/10/24 History mcg (2,000 unit) capsule methenamine hippurate 1 gram tablet 1 g PO BID #180 tabs 10/14/24 12/10/24 Rx metoprolol succinate 50 mg 50 mg PO Q12 10/30/24 12/10/24 History tablet,extended release 24 hr pen needle, diabetic 32 gauge x #400 ea 11/12/24 Rx 5/32" duloxetine 60 mg capsule,delayed 60 mg PO DAILY #30 caps 11/13/24 12/10/24 Rx release benzonatate 100 mg capsule 100 mg PO TID PRN Cough 12/01/24 12/10/24 History insulin lispro 100 unit/mL 6 unit subcut TIDM 12/01/24 12/10/24 History subcutaneous pen (Humalog KwikPen (U-100) Insulin) lisinopril 20 mg tablet 40 mg PO QAM 12/01/24 12/10/24 History loperamide 2 mg tablet (Imodium 2 mg PO Q8 PRN Diarrhea #90 tabs 12/01/24 12/10/24 Rx A-D) levothyroxine 25 mcg capsule 25 mcg PO DAILY #30 caps 12/02/24 12/10/24 Rx ketoconazole 2 % topical cream 1 applic topical BID PRN Itching 12/10/24 12/10/24 History Past Med/Surg History Problem List (Updated 12/10/24 @ 18:15 by Luna Gomez DO) Diarrhea Abdominal pain, acute, left lower quadrant (Acute) Urinary tract infection (Acute) Acute alteration in mental status (Acute) Adrenal nodule Elevated TSH Acute UTI (Acute) Dysuria (Acute) Cystitis Fall (Acute) Diabetic nephropathy associated with type 2 diabetes mellitus Persistent microalbuminuria associated with type 2 diabetes mellitus Pressure ulcer Gait apraxia Pyelonephritis (Acute) Right sided sciatica (Acute) Abdominal pain, lower (Acute) Tiredness Hypertension Dermatitis Low back pain Overactive bladder Hypomagnesemia (Acute) Lumbar contusion (Acute) Left leg weakness (Acute) Nonproliferative diabetic retinopathy Diabetic peripheral neuropathy Stented coronary artery Loss of protective sensation of skin of foot H/O: stroke with residual effects Albuminuria Recurrent UTI (urinary tract infection) Urine incontinence (Chronic) Age-related cognitive decline (Chronic) Diabetic peripheral neuropathy associated with type 2 diabetes mellitus (Acute) Gait disturbance (Acute) Nephrolithiasis (Acute) Neuropathic pain of both feet (Acute) Vitamin D deficiency disease (Acute) Medical History Influenza A Closed compression fracture of lumbar vertebra (~2019) a chronic superior endplate compression fracture deformity of L5 per the MRI from 03/22/24 Type 2 diabetes mellitus with insulin therapy Hyperlipidemia IBS (irritable bowel syndrome) Spinal stenosis, lumbar region with neurogenic claudication Stroke-like symptom Numbness of left hand Humerus fracture Balance problem Stroke Fall Abnormal thyroid blood test Localized swelling of both lower legs Hypoglycemia Lupus Closed left humeral fracture (07/22/23) from a fall Interstitial lung disease Diabetes mellitus type 2, uncontrolled CAD (coronary artery disease) Hypertension Contact dermatitis Chronic cough Rash Herpes zoster, ocular Contusion of leg, left Gross hematuria Physical deconditioning Expressive aphasia Chronic diarrhea Spinal stenosis of lumbar region Cerebrovascular disease Family history of dementia Neurogenic claudication due to lumbar spinal stenosis Arm DVT (deep venous thromboembolism), acute Mitral regurgitation Recurrent UTI Hx of renal calculi C. difficile colitis Surgical History History of lithotripsy S/P cardiac catheterization Hx of cholecystectomy Family History Mother Alzheimer disease Hypertension Brother Diabetes Myocardial infarction Father Hypertension Sister Lung cancer Other Family history non-contributory Stroke Denies family history of Ovarian cancer Prostate cancer Breast cancer Colorectal cancer Social History Smoking Status: Never smoker Second Hand Exposure: No; Do You Dip or Chew Tobacco: No; Hx Alcohol Use: No Hx Substance Use: No Preferred Language: Urdu Communication Ability: Effective Visual Impairment: No Limitations Hearing Ability: Normal Retail Performance Specialist Required: No Beliefs That Will Affect Care: None marital status: / Current Living Situation: Alone Current Living Situation Comment: daughter in law helps w/ care current occupational status: retired Feels Safe at Home: Yes Childhood Exposure to Second-Hand Smoke: No Dental Care, Regularly: No Physical Activity Frequency: Does not Exercise Seatbelt Use: always Sunscreen Use: No Assistive Devices: Walker and Wheelchair Review of Systems Review of Systems: Constitutional: No Weight Change, No Fever, No Chills, No Night Sweats, No Fatigue, No Malaise Cardiovascular: No Chest Pain, No SOB, No PND, No Dyspnea on Exertion, No Orthopnea, No Claudication, No Edema, No Palpitations Respiratory: No Cough, No Sputum, No Wheezing, Gastrointestinal: diarrhea; no abdominal pain, no bloody stool; overdue for colon cancer screening Genitourinary: recurrent UTI; + for dysuria; + for hx of renal stones Musculoskeletal: + for chronic low back pain Neuro: + for daytime somnolence; + for intermittent confusion Heme/Lymph: No Bruising, No Bleeding, No Transfusions History, No Lymphadenopathy Endocrine: + for insulin dependent diabetes; + for hypothyroidism Physical Exam Physical Exam: VITALS: Reviewed. WEIGHT/BMI reviewed. GEN: Healthy appearing, well-developed, NAD. HEENT -Head: NC/AT; -Mouth and throat: MMM. Normal gums, muc mukund, palate,. Good dentition. NECK: Supple, with no masses. CV: RRR, no m/r/g. LUNGS: CTAB, no w/r/c. on supplemental oxygen ABD: Soft, NT/ND, NBS, no masses or organomegaly. MSK: lumbar spine painful to palpitation; NEURO: AAOx3; following command able to speak in full sentence; no involuntary movement Results & Data Results & Data Vital Signs (Past 12 Hours) Vital Signs Temp Pulse Pulse Resp BP BP Pulse Ox 12/10/24 17:00 52 L 18 152/81 H 100 12/10/24 15:45 81 L 12/10/24 15:17 62 18 170/79 H 95 12/10/24 14:01 12/10/24 13:45 60 12/10/24 13:34 37.1 C 61 24 174/102 H 95 O2 Del Method O2 Flow Rate 12/10/24 17:00 Nasal Cannula 2 12/10/24 15:45 Nasal Cannula 0 12/10/24 15:17 12/10/24 14:01 Room Air 12/10/24 13:45 12/10/24 13:34 Laboratory Results Laboratory Results - last 72 hr 12/10/24 12/10/24 12/10/24 13:40 17:54 Unknown WBC 7.34 RBC 3.87 L Hgb 11.4 L Hct 34.8 L MCV 89.9 MCH 29.5 MCHC 32.8 RDW Std Deviation 41.3 RDW Coeff of Linda 12.6 Plt Count 215 MPV 9.9 Immature Gran % (Auto) 0.7 Neut % (Auto) 54.7 Lymph % (Auto) 33.7 [place] % (Auto) 8.2 Eos % (Auto) 2.3 Baso % (Auto) 0.4 Neut # (Auto) 4.02 Lymph # (Auto) 2.47 [place] # (Auto) 0.60 H Eos # (Auto) 0.17 Baso # (Auto) 0.03 Immature Gran # (Auto) 0.05 Sodium 140 Potassium 4.0 Chloride 105 Carbon Dioxide 29 Anion Gap 6 BUN 26 H Creatinine 0.92 Est Cr Clr Drug Dosing 42.0 eGFR 61.40 BUN/Creatinine Ratio 28.3 H Glucose 236 H POC Glucose 108 H Calcium 9.5 Total Bilirubin 0.5 AST 20 ALT 19 Alkaline Phosphatase 49 Troponin I High Sens 8.8 Total Protein 6.9 Albumin 3.5 Globulin 3.4 Albumin/Globulin Ratio 1.0 Lipase 37 Urine Color Yellow Urine Appearance Clear Urine pH 5.5 Ur Specific [place] 1.015 Urine Protein Negative Urine Glucose (UA) Negative Urine Ketones Negative Urine Blood Negative Urine Nitrite Negative Urine Bilirubin Negative Urine Urobilinogen Negative Ur Leukocyte Esterase 1+ H Urine RBC 3-5 H Urine WBC 6-10 H Ur Epithelial Cells 11-20 H Urine Bacteria 1+ H Urine Comment PG Care Time/CCT Total # of Minutes Spent Total Time Spent with Patient: Total time spent is greater than 50% in coordination of care (as documented) at patient's floor/unit and/or counseling patient: Coding Level of Care Code 93769 INT INP/OBS CARE 2/55MIN Diagnoses Urinary tract infection N39.0 Acute alteration in mental status R41.82 Diarrhea R19.7 Time Spent (min) 55
[2024-12-10] MEDS ORDERED: GLUCAGON FOR INJ 1 MG VIAL SQ PRN (18:30)
[2024-12-10] MEDS ORDERED: GLUCOSE 40% GEL 15 GM TUBE PO PRN (18:30)
[2024-12-10] MEDS ORDERED: FIDAXOMICIN 200 MG TAB PO SCH (18:30)
[2024-12-10] MEDS ORDERED: CARBOHYDRATES FOR HYPOGLYCEMIA PO PRN (18:30)
[2024-12-10] MEDS ORDERED: GLUCOSE 10 TAB/TUBE PO PRN (18:30)
[2024-12-10] MEDS ORDERED: DEXTROSE 50% 50 ML SYRINGE IV PRN (18:30)
[2024-12-10] MEDS ORDERED: NON-FORMULARY MEDICATION (Lancets [Onetouch Delica Plus Lancet] 33 gauge misc) SCH (18:31)
[2024-12-10] MEDS ORDERED: BENZONATATE 100 MG CAPSULE PO PRN (18:31)
[2024-12-10] MEDS ORDERED: LOPERAMIDE HCL 2 MG CAP PO PRN (18:40)
[2024-12-10] MEDS: SODIUM CHLORIDE 0.9% 500 ML IV SCH (19:50)
[2024-12-10] MEDS ORDERED: NON-FORMULARY MEDICATION (Vit C,E-Zn-Coppr-Lutein-Zeaxan [Preservision Areds-2] 250-90-40- PO SCH (21:00)
[2024-12-10] MEDS: VANCOMYCIN HCL 125 MG CAP PO STA (21:08)
[2024-12-10] MEDS: ATORVASTATIN 40 MG TAB PO SCH (21:08)
[2024-12-10] MEDS: METOPROLOL SUCC 50MG EXT REL TAB PO SCH (21:08)
[2024-12-10] MEDS: TRIAMCINOLONE ACET 0.1% CR 15 GM TUBE TOP SCH (21:09)
[2024-12-10] MEDS: KETOCONAZOLE 2% CR 15 GM TUBE EXT SCH (21:09)
[2024-12-10] MEDS: REMOVE LIDODERM PATCH SCH (21:16)
[2024-12-10] MEDS: INSULIN ASPART PER UNIT CHARGE SC SCH (21:19)
[2024-12-11] MEDS: LEVOTHYROXINE SODIUM 25 MCG TABLET PO SCH (07:01)
[2024-12-11] MEDS: DOXAZOSIN MESYLATE 1 MG TAB PO SCH (08:38)
[2024-12-11] MEDS: VIBEGRON 75 MG TAB PO SCH (08:39)
[2024-12-11] MEDS: CHOLECALCIFEROL 25 MCG (1000 UNITS) TAB PO SCH (08:40)
[2024-12-11] MEDS: ADVANCED PROBIOTIC 625 MG CAPSULE PO SCH (08:40)
[2024-12-11] MEDS: CEROVITE ADV FORMULA TAB PO SCH (08:41)
[2024-12-11] MEDS: CLOPIDOGREL BISULFATE 75 MG TAB PO SCH (08:43)
[2024-12-11] MEDS: LIDOCAINE 5% 1 PATCH TD SCH (08:43)
[2024-12-11] MEDS: LANTUS PER UNIT CHARGE SQ SCH (10:25)
--- NOTE | 2024-12-11 12:04 | Hospitalist Progress Note ---
Date of Service December 11, 2024 Assessment & Plan (1) Urinary tract infection: Plan: Sofai Carpenter is a 84 yo woman with PMH of recurrent UTI, urinary incontinence, strokes, CAD with stent, insulin dependent diabetes, chronic low back pain. neuropathy she's has had multiple admission for recurrent UTI, but still unable to see urologist. in addition, she's have worsening diarrhea for several weeks. she has gallbladder surgery in the 1984 and beeen having diarrhea since. on 12/10/2024, her daughter in law, Katya ([phone]), noticed AMS, dysuria, and brought her to our hospital for evaluation. when she's was sleeping in the ED, her pulse oximetry desaturate into the 80s and started supplemental oxygen. she will be admitted for management of UTI, septic encephalopathy. diarrhea and monitor for electrolyte I suspect she has undiagnosed sleep apnea, partially contribute to has daytime somnolence, her CT head is negative for bleeding, she's denied using any nacrotic. she only use hydroxyzine intermittent. 1. acute recurrent UTI 2. septic encephalopathy 3. daytime somnolence concerning for obstructive sleep apnea 4. hypoxic episode 5. diarrhea episode 6. urinary incontinence 7. insulin dependent diabetes ( home dose of 40 unt long acting and 10 units TID with meals) 8. chronic low back pain on cymbalta 9. neuropathy 10. hx of lupus 11. hx of CAD s/p stent 1. acute recurrent UTI I will keep her on another 48-72 hours of ceftriaxone and monitor her for diarrhea ceftriaxone in the past, she growing dos santos-sensitive culture fluconazole urology evaluation 2. septic encephalopathy been having daytime somnolence suspect UTI superimpose on untreated sleep apnea nocturnal oxygen plan for nocturnal pulse oximetry tonight and ABG on Sunday morning 3. hypoxic episode, c/w supplemental oxygen suspect underlying sleep apnea 4. diarrhea episode that's been ongoing for many decade since her gallbladder surgery however, given her frequent hospitalization, empiric check for C. difficile, stool PCR monitor for her potassium and magnesium level 5. urinary incontinence vibegron 75mg incontinence started 3-4 years ago 6. 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 hypertension, she's on metoprolol ER 50mg and lisinopril 20mg per the patient, she unsure if she's on aldactone 25mg she' also taking doxazosin 1mg 8. chronic low back pain, cymablta 60mg morning, 9, insulin dependent diabetes, she's on lantus 40 units morning, and then humalog 10 TID 10.recurrent UTI, she's methenamine , she's on cranberry she need urology f/u 11. code status; full code emergency contact: Katya [phone] (2) Acute alteration in mental status: (3) Diarrhea: Admission and Anticipated Discharge Date Admission Date: December 10, 2024 Subjective she's still need IV antibiotics we are monitoring for her diarrhea, and await stool sample to r/o C. difficile she's on ceftriaxone for UTI, her nasal MRSA is positive. on interview in the morning; she is AAox3 given her daughter concerned about daytime somnolence plan for overnight pulse oximetry screening and ABG tomorrow Physical Exam Physical Exam: VITALS: Reviewed. WEIGHT/BMI reviewed. GEN: non-toxic appearing HEENT -Head: NC/AT; -Mouth and throat: MMM. Normal gums, muc bryn, palate,. Good dentition. NECK: Supple, with no masses. CV: RRR, no m/r/g. LUNGS: on 1-2 liter oxygen; no wheezing ABD: Soft, NT/ND, NBS, no masses or organomegaly. non-tender to palpation MSK: No deformities, Normal gait. EXT: + for edema NEURO: AAox3 Results & Data Results & Data Vital Signs (Past 12 Hours) Vital Signs Pulse Resp BP Pulse Ox O2 Del Method O2 Flow Rate 12/11/24 11:00 60 20 107/65 94 Room Air 12/11/24 10:00 59 L 20 108/55 L 96 Room Air 12/11/24 09:01 58 L 16 176/85 H 96 Room Air 12/11/24 08:00 66 20 130/67 98 Room Air 12/11/24 07:01 58 L 18 106/58 L 99 Room Air 12/11/24 07:01 60 20 106/58 L 98 Room Air 12/11/24 06:36 52 L 12/11/24 06:00 53 L 21 118/58 L 97 Nasal Cannula 2 12/11/24 05:00 65 20 122/63 96 Nasal Cannula 2 12/11/24 04:00 58 L 19 132/62 96 Nasal Cannula 2 12/11/24 03:00 56 L 21 116/60 97 Nasal Cannula 12/11/24 02:00 51 L 19 101/75 97 Nasal Cannula 2 12/11/24 01:03 54 L 20 97 Nasal Cannula 2 12/11/24 01:00 133/62 12/11/24 00:30 51 L 18 98 Nasal Cannula 2 12/11/24 00:00 51 L 19 122/66 98 Nasal Cannula 2 Laboratory Results Laboratory Results - last 72 hr 12/10/24 12/10/24 12/10/24 13:40 17:54 21:18 WBC 7.34 RBC 3.87 L Hgb 11.4 L Hct 34.8 L MCV 89.9 MCH 29.5 MCHC 32.8 RDW Std Deviation 41.3 RDW Coeff of Linda 12.6 Plt Count 215 MPV 9.9 Immature Gran % (Auto) 0.7 Neut % (Auto) 54.7 Lymph % (Auto) 33.7 [place] % (Auto) 8.2 Eos % (Auto) 2.3 Baso % (Auto) 0.4 Neut # (Auto) 4.02 Lymph # (Auto) 2.47 Gosper # (Auto) 0.60 H Eos # (Auto) 0.17 Baso # (Auto) 0.03 Immature Gran # (Auto) 0.05 Sodium 140 Potassium 4.0 Chloride 105 Carbon Dioxide 29 Anion Gap 6 BUN 26 H Creatinine 0.92 Est Cr Clr Drug Dosing 42.0 eGFR 61.40 BUN/Creatinine Ratio 28.3 H Glucose 236 H POC Glucose 108 H 109 H Lactate Calcium 9.5 Total Bilirubin 0.5 AST 20 ALT 19 Alkaline Phosphatase 49 Troponin I High Sens 8.8 Total Protein 6.9 Albumin 3.5 Globulin 3.4 Albumin/Globulin Ratio 1.0 Lipase 37 Urine Color Urine Appearance Urine pH Ur Specific Temple Urine Protein Urine Glucose (UA) Urine Ketones Urine Blood Urine Nitrite Urine Bilirubin Urine Urobilinogen Ur Leukocyte Esterase Urine RBC Urine WBC Ur Epithelial Cells Urine Bacteria Urine Comment Nasal Screen MRSA (PCR) 12/10/24 12/11/24 12/11/24 Unknown 01:11 01:12 WBC RBC Hgb Hct MCV MCH MCHC RDW Std Deviation RDW Coeff of Linda Plt Count MPV Immature Gran % (Auto) Neut % (Auto) Lymph % (Auto) Gos[place] % (Auto) Eos % (Auto) Baso % (Auto) Neut # (Auto) Lymph # (Auto) [place] # (Auto) Eos # (Auto) Baso # (Auto) Immature Gran # (Auto) Sodium Potassium Chloride Carbon Dioxide Anion Gap BUN Creatinine Est Cr Clr Drug Dosing eGFR BUN/Creatinine Ratio Glucose POC Glucose 105 H Lactate Calcium Total Bilirubin AST ALT Alkaline Phosphatase Troponin I High Sens Total Protein Albumin Globulin Albumin/Globulin Ratio Lipase Urine Color Yellow Urine Appearance Clear Urine pH 5.5 Ur Specific Temple 1.015 Urine Protein Negative Urine Glucose (UA) Negative Urine Ketones Negative Urine Blood Negative Urine Nitrite Negative Urine Bilirubin Negative Urine Urobilinogen Negative Ur Leukocyte Esterase 1+ H Urine RBC 3-5 H Urine WBC 6-10 H Ur Epithelial Cells 11-20 H Urine Bacteria 1+ H Urine Comment Nasal Screen MRSA (PCR) Positive A 12/11/24 12/11/24 12/11/24 05:14 07:24 07:52 WBC RBC Hgb Hct MCV MCH MCHC RDW Std Deviation RDW Coeff of Linda Plt Count MPV Immature Gran % (Auto) Neut % (Auto) Lymph % (Auto) [place] % (Auto) Eos % (Auto) Baso % (Auto) Neut # (Auto) Lymph # (Auto) [place] # (Auto) Eos # (Auto) Baso # (Auto) Immature Gran # (Auto) Sodium Potassium Chloride Carbon Dioxide Anion Gap BUN Creatinine Est Cr Clr Drug Dosing eGFR BUN/Creatinine Ratio Glucose POC Glucose 107 H 108 H Lactate 0.8 Calcium Total Bilirubin AST ALT Alkaline Phosphatase Troponin I High Sens Total Protein Albumin Globulin Albumin/Globulin Ratio Lipase Urine Color Urine Appearance Urine pH Ur Specific Temple Urine Protein Urine Glucose (UA) Urine Ketones Urine Blood Urine Nitrite Urine Bilirubin Urine Urobilinogen Ur Leukocyte Esterase Urine RBC Urine WBC Ur Epithelial Cells Urine Bacteria Urine Comment Nasal Screen MRSA (PCR) 12/11/24 11:19 WBC RBC Hgb Hct MCV MCH MCHC RDW Std Deviation RDW Coeff of Linda Plt Count MPV Immature Gran % (Auto) Neut % (Auto) Lymph % (Auto) Gos[place] % (Auto) Eos % (Auto) Baso % (Auto) Neut # (Auto) Lymph # (Auto) [place] # (Auto) Eos # (Auto) Baso # (Auto) Immature Gran # (Auto) Sodium Potassium Chloride Carbon Dioxide Anion Gap BUN Creatinine Est Cr Clr Drug Dosing eGFR BUN/Creatinine Ratio Glucose POC Glucose 163 H Lactate Calcium Total Bilirubin AST ALT Alkaline Phosphatase Troponin I High Sens Total Protein Albumin Globulin Albumin/Globulin Ratio Lipase Urine Color Urine Appearance Urine pH Ur Specific Temple Urine Protein Urine Glucose (UA) Urine Ketones Urine Blood Urine Nitrite Urine Bilirubin Urine Urobilinogen Ur Leukocyte Esterase Urine RBC Urine WBC Ur Epithelial Cells Urine Bacteria Urine Comment Nasal Screen MRSA (PCR) Diagnostic Findings Laboratory Results - last 72 hr 12/10/24 12/10/24 12/10/24 13:40 17:54 21:18 WBC 7.34 RBC 3.87 L Hgb 11.4 L Hct 34.8 L MCV 89.9 MCH 29.5 MCHC 32.8 RDW Std Deviation 41.3 RDW Coeff of Linda 12.6 Plt Count 215 MPV 9.9 Immature Gran % (Auto) 0.7 Neut % (Auto) 54.7 Lymph % (Auto) 33.7 [place] % (Auto) 8.2 Eos % (Auto) 2.3 Baso % (Auto) 0.4 Neut # (Auto) 4.02 Lymph # (Auto) 2.47 Gos[place] # (Auto) 0.60 H Eos # (Auto) 0.17 Baso # (Auto) 0.03 Immature Gran # (Auto) 0.05 Sodium 140 Potassium 4.0 Chloride 105 Carbon Dioxide 29 Anion Gap 6 BUN 26 H Creatinine 0.92 Est Cr Clr Drug Dosing 42.0 eGFR 61.40 BUN/Creatinine Ratio 28.3 H Glucose 236 H POC Glucose 108 H 109 H Lactate Calcium 9.5 Total Bilirubin 0.5 AST 20 ALT 19 Alkaline Phosphatase 49 Troponin I High Sens 8.8 Total Protein 6.9 Albumin 3.5 Globulin 3.4 Albumin/Globulin Ratio 1.0 Lipase 37 Urine Color Urine Appearance Urine pH Ur Specific Temple Urine Protein Urine Glucose (UA) Urine Ketones Urine Blood Urine Nitrite Urine Bilirubin Urine Urobilinogen Ur Leukocyte Esterase Urine RBC Urine WBC Ur Epithelial Cells Urine Bacteria Urine Comment Nasal Screen MRSA (PCR) 12/10/24 12/11/24 12/11/24 Unknown 01:11 01:12 WBC RBC Hgb Hct MCV MCH MCHC RDW Std Deviation RDW Coeff of Linda Plt Count MPV Immature Gran % (Auto) Neut % (Auto) Lymph % (Auto) Gos[place] % (Auto) Eos % (Auto) Baso % (Auto) Neut # (Auto) Lymph # (Auto) Gos[place] # (Auto) Eos # (Auto) Baso # (Auto) Immature Gran # (Auto) Sodium Potassium Chloride Carbon Dioxide Anion Gap BUN Creatinine Est Cr Clr Drug Dosing eGFR BUN/Creatinine Ratio Glucose POC Glucose 105 H Lactate Calcium Total Bilirubin AST ALT Alkaline Phosphatase Troponin I High Sens Total Protein Albumin Globulin Albumin/Globulin Ratio Lipase Urine Color Yellow Urine Appearance Clear Urine pH 5.5 Ur Specific Temple 1.015 Urine Protein Negative Urine Glucose (UA) Negative Urine Ketones Negative Urine Blood Negative Urine Nitrite Negative Urine Bilirubin Negative Urine Urobilinogen Negative Ur Leukocyte Esterase 1+ H Urine RBC 3-5 H Urine WBC 6-10 H Ur Epithelial Cells 11-20 H Urine Bacteria 1+ H Urine Comment Nasal Screen MRSA (PCR) Positive A 12/11/24 12/11/24 12/11/24 05:14 07:24 07:52 WBC RBC Hgb Hct MCV MCH MCHC RDW Std Deviation RDW Coeff of Linda Plt Count MPV Immature Gran % (Auto) Neut % (Auto) Lymph % (Auto) [place] % (Auto) Eos % (Auto) Baso % (Auto) Neut # (Auto) Lymph # (Auto) [place] # (Auto) Eos # (Auto) Baso # (Auto) Immature Gran # (Auto) Sodium Potassium Chloride Carbon Dioxide Anion Gap BUN Creatinine Est Cr Clr Drug Dosing eGFR BUN/Creatinine Ratio Glucose POC Glucose 107 H 108 H Lactate 0.8 Calcium Total Bilirubin AST ALT Alkaline Phosphatase Troponin I High Sens Total Protein Albumin Globulin Albumin/Globulin Ratio Lipase Urine Color Urine Appearance Urine pH Ur Specific [place] Urine Protein Urine Glucose (UA) Urine Ketones Urine Blood Urine Nitrite Urine Bilirubin Urine Urobilinogen Ur Leukocyte Esterase Urine RBC Urine WBC Ur Epithelial Cells Urine Bacteria Urine Comment Nasal Screen MRSA (PCR) 12/11/24 11:19 WBC RBC Hgb Hct MCV MCH MCHC RDW Std Deviation RDW Coeff of Linda Plt Count MPV Immature Gran % (Auto) Neut % (Auto) Lymph % (Auto) [place] % (Auto) Eos % (Auto) Baso % (Auto) Neut # (Auto) Lymph # (Auto) [place] # (Auto) Eos # (Auto) Baso # (Auto) Immature Gran # (Auto) Sodium Potassium Chloride Carbon Dioxide Anion Gap BUN Creatinine Est Cr Clr Drug Dosing eGFR BUN/Creatinine Ratio Glucose POC Glucose 163 H Lactate Calcium Total Bilirubin AST ALT Alkaline Phosphatase Troponin I High Sens Total Protein Albumin Globulin Albumin/Globulin Ratio Lipase Urine Color Urine Appearance Urine pH Ur Specific Temple Urine Protein Urine Glucose (UA) Urine Ketones Urine Blood Urine Nitrite Urine Bilirubin Urine Urobilinogen Ur Leukocyte Esterase Urine RBC Urine WBC Ur Epithelial Cells Urine Bacteria Urine Comment Nasal Screen MRSA (PCR) Medications Administered Current Inpatient Medications Atorvastatin Calcium (Atorvastatin 40 Mg Tab) 40 mg PO HS MARIE Stop: 01/09/25 20:59 Last Admin: 12/10/24 21:08 Dose: 40 mg Benzonatate (Benzonatate 100 Mg Capsule) 100 mg PO TID PRN PRN Reason: Cough Stop: 01/09/25 18:30 Clopidogrel Bisulfate (Clopidogrel Bisulfate 75 Mg Tab) 75 mg PO QAM [facility] Stop: 01/10/25 08:59 Last Admin: 12/11/24 08:43 Dose: 75 mg Dextrose (Dextrose 50% 50 Ml Syringe) 25 - 50 ml IV UD PRN; Protocol PRN Reason: Hypoglycemia Protocol Stop: 01/09/25 18:29 Doxazosin Mesylate (Doxazosin Mesylate 1 Mg Tab) 1 mg PO QAM MARIE Stop: 01/10/25 08:59 Last Admin: 12/11/24 08:38 Dose: 1 mg Duloxetine HCl (Duloxetine Hcl 60 Mg Cap) 60 mg PO DAILY MARIE Stop: 01/10/25 08:59 Last Admin: 12/11/24 08:40 Dose: 60 mg Glucagon (Glucagon For Inj 1 Mg Vial) 1 mg SQ UD PRN; Protocol PRN Reason: Hypoglycemia Protocol Stop: 01/09/25 18:29 Glucose (Glucose 40% Gel 15 Gm Tube) 15 - 30 gm PO UD PRN; Protocol PRN Reason: Hypoglycemia Protocol Stop: 01/09/25 18:29 Glucose (Glucose 10 Tab/Tube) 4 - 8 tab PO UD PRN; Protocol PRN Reason: Hypoglycemia Protocol Stop: 01/09/25 18:29 Insulin Aspart (Insulin Aspart Per Unit Charge) 0 units SC ACHS MARIE Stop: 01/09/25 20:59 Last Admin: 12/11/24 08:01 Dose: 3 units Insulin Glargine (Lantus Per Unit Charge) 12 units SQ DAILY MARIE Stop: 01/10/25 08:59 Last Admin: 12/11/24 10:25 Dose: 12 units Ketoconazole (Ketoconazole 2% Cr 15 Gm Tube) 1 appln EXT BID MARIE Stop: 12/20/24 20:59 Last Admin: 12/11/24 08:55 Dose: 1 appln Lactobacillus Acidophilus (Advanced Probiotic 625 Mg Capsule) 1,250 mg PO DAILY MARIE Stop: 01/10/25 08:59 Last Admin: 12/11/24 08:40 Dose: 1,250 mg Levothyroxine Sodium (Levothyroxine Sodium 25 Mcg Tablet) 25 mcg PO DAILYBB MARIE Stop: 01/10/25 06:29 Last Admin: 12/11/24 07:01 Dose: 25 mcg Lidocaine (Lidocaine 5% 1 Patch) 1 patch TD DAILY MARIE Stop: 01/10/25 08:59 Last Admin: 12/11/24 08:43 Dose: 1 patch Lisinopril (Lisinopril 40 Mg Tab) 40 mg PO QAM MARIE Stop: 01/10/25 08:59 Last Admin: 12/11/24 08:40 Dose: 40 mg Loperamide HCl (Loperamide Hcl 2 Mg Cap) 2 mg PO UD PRN PRN Reason: Diarrhea Stop: 01/09/25 18:39 Metoprolol Succinate (Metoprolol Succ 50mg Ext Rel Tab) 50 mg PO Q12 MARIE Stop: 01/09/25 20:59 Last Admin: 12/11/24 09:27 Dose: Not Given Miscellaneous (Remove Lidoderm Patch) 1 each N/A DAILY@2100 [facility] Stop: 01/09/25 20:59 Last Admin: 12/10/24 21:16 Dose: 1 each Miscellaneous (Carbohydrates For Hypoglycemia ) 15 - 30 gm PO UD PRN PRN Reason: Hypoglycemia Protocol Stop: 01/09/25 18:29 Multivitamins/Minerals (Cerovite Adv Formula Tab) 1 tab PO DAILY MARIE Stop: 01/10/25 08:59 Last Admin: 12/11/24 08:41 Dose: 1 tab Ondansetron HCl (Ondansetron 4 Mg Od Tab) 4 mg PO Q4H PRN PRN Reason: Nausea And Vomiting Stop: 01/09/25 18:38 Triamcinolone Acetonide (Triamcinolone Acet 0.1% Cr 15 Gm Tube) 1 appln TOP BID MARIE Stop: 01/09/25 20:59 Last Admin: 12/11/24 08:56 Dose: 1 appln Vibegron (Vibegron 75 Mg Tab) 75 mg PO QAM MARIE Stop: 01/10/25 08:59 Last Admin: 12/11/24 08:39 Dose: 75 mg Vitamin D (Cholecalciferol 25 Mcg (1000 Units) Tab) 50 mcg PO DAILY MARIE Stop: 01/10/25 08:59 Last Admin: 12/11/24 08:40 Dose: 50 mcg PG Care Time/CCT Total # of Minutes Spent Total Time Spent with Patient: Total time spent is greater than 50% in coordination of care (as documented) at patient's floor/unit and/or counseling patient: Coding Level of Care Code 88831 SUB INP/OBS CARE 03/29MIN Diagnoses Urinary tract infection N39.0 Acute alteration in mental status R41.82 Diarrhea R19.7 Time Spent (min) 25
[2024-12-11] MEDS: cefTRIAXone SODIUM 2,000 MG/50 ML BAG IV SCH (16:09)
[2024-12-11 16:34] LABS: Appearance Urine Clear (Clear); Bacteria Urine Automated None Seen (None Seen); Cast Urine Automated 0-2 /lpf (0-2); Epithelial Cell Urine Auto 0-2 /hpf (0-2); Glucose Urine UA Negative (Negative); RBC Urine Automated 0-2 /hpf (0-2)
[2024-12-12 05:03] LABS: HCO3 ABG 28 mmol/L (19-24); Oxygen Saturation ABG 98.5 % (90-95); PCO2 ABG 49 mmHg (35-46); PO2 ABG 120 mmHg (80-95)
[2024-12-12 05:09] LABS: Allen Test Pos (Pos)
[2024-12-12 06:00] LABS: Hematocrit (blood only) 34.1 % (37.0-47.0); Hemoglobin 11.4 g/dl (12.0-16.0); Mean Corpuscular Hemoglobin 30.7 pg (25.0-34.0); Mean Corpuscular Volume 91.9 fL (80.0-100.0); Platelet Count 203 K/uL (130-400); RDW Standard Deviation 42.3 fL (36.4-46.3); Red Blood Count 3.71 M/uL (4.20-5.40); White Blood Count 9.16 K/ul (4.8-10.8)
[2024-12-12 06:20] LABS: Alanine Aminotransferase 19.0 U/L (7-52); Albumin Globulin Ratio 1.2 (0.9-2); Albumin Level 3.7 gm/dl (3.4-5.0); Alkaline Phosphatase 46.0 U/L (34-104); Anion Gap 4.0 (3-11); Bilirubin,Total 0.5 mg/dl (0.2-1.0); Blood Urea Nitrogen 24.0 mg/dl (6-23); Calcium 9.2 mg/dl (8.6-10.3); Carbon Dioxide 30.0 mmol/L (21-32); Chloride 105.0 mmol/L (98-107); Creatinine Clr Calc Pharmacy 40.2 ml/min; Globulin 3.1 gm/dl (2.5-4.0); Glucose 109.0 mg/dl (70-99(Fasting)); Potassium 4.3 mmol/L (3.5-5.1); Sodium 139.0 mmol/L (136-145); Total Protein 6.8 gm/dl (6.0-8.3)
--- NOTE | 2024-12-12 14:43 | Hospitalist Progress Note ---
Date of Service December 12, 2024 Assessment & Plan (1) Urinary tract infection: Plan: Sofia Carpenter is a 84 yo woman with PMH of recurrent UTI, urinary incontinence, multiples strokes, CAD with stent, insulin dependent diabetes, chronic low back pain. neuropathy. she has had urinary incontinence for 3-4 years she's has had multiple admission for recurrent UTI, but still unable to see urologist. in addition, she's have worsening diarrhea for several weeks. she has gallbladder surgery in the 1984 and been having diarrhea since. on 12/10/2024, her daughter in law, Katya ([phone]), noticed AMS, dysuria, and brought her to our hospital for evaluation. when she's was sleeping in the ED, her pulse oximetry desaturate into the 80s and started supplemental oxygen. she will be admitted for management of UTI, septic encephalopathy. diarrhea and monitor for electrolyte I suspect she has undiagnosed sleep apnea, partially contribute to has daytime somnolence, her CT head is negative for bleeding, she's denied using any nacrotic 1. acute recurrent UTI 2. septic encephalopathy 3. daytime somnolence concerning for obstructive sleep apnea 4. hypoxic episode 5. diarrhea episode 6. urinary incontinence 7. insulin dependent diabetes ( home dose of 40 unt long acting and 10 units TID with meals) 8. chronic low back pain on cymbalta 9. neuropathy 10. hx of lupus 11. hx of CAD s/p stent 1. acute recurrent UTI she still have disoriented, plan for another 24-48 hours of IV ceftriaxone in the past, she was growing dos santos-sensitive E. coli plan for minocycline upon discharge multiple drug allergy; ciprofloxacin, sulfur, flagyl. 2. septic encephalopathy her mentation is improving from admission AAOx3; suspect her untreated sleep apnea is causing daytime somnolnece 3. hypoxic episode, c/w supplemental oxygen suspect underlying sleep apnea she still on 3 liter oxygen 4. diarrhea episode that's been ongoing for many decade since her gallbladder surgery however, given her frequent hospitalization, empiric check for C. difficile, stool PCR monitor for her potassium and magnesium level 5. urinary incontinence vibegron 75mg incontinence started 3-4 years ago 6. 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 hypertension, she's on metoprolol ER 50mg and lisinopril 20mg per the patient, she unsure if she's on aldactone 25mg she' also taking doxazosin 1mg 8. chronic low back pain, Cymbalta 60mg morning, 9, insulin dependent diabetes, she's on lantus 40 units morning, and then humalog 10 TID 10.recurrent UTI, she's methenamine , she's on cranberry she need urology f/u 11. code status; full code emergency contact: Katya [phone] (2) Acute alteration in mental status: (3) Diarrhea: Admission and Anticipated Discharge Date Admission Date: December 10, 2024 Subjective she still have disorientation, but AAox3 still need IV antibiotics for UTI PT and OT evaluation Physical Exam Physical Exam: VITALS: Reviewed. WEIGHT/BMI reviewed. GEN: Healthy appearing, well-developed, NAD. Neuro: AAox3. following command; no tremor -Head: NC/AT; NECK: Supple, with no masses. CV: RRR, no m/r/g. LUNGS: CTAB, no w/r/c. ABD: Soft, NT/ND, NBS, no masses or organomegaly. : N/A MSK: No deformities, Normal gait. EXT: No clubbing, cyanosis, or edema. NEURO: AAox3 Results & Data Results & Data Vital Signs (Past 12 Hours) Vital Signs Temp Pulse Pulse Pulse Resp BP Pulse Ox 12/12/24 11:44 37.2 C 73 16 135/70 95 12/12/24 11:25 12/12/24 08:26 36.9 C 69 16 150/70 H 99 12/12/24 07:17 86 12/12/24 04:59 65 Pulse Ox O2 Del Method O2 Del Method O2 Flow Rate O2 Flow Rate 12/12/24 11:44 Nasal Cannula 3 12/12/24 11:25 Nasal Cannula 2 12/12/24 08:26 Nasal Cannula 2 12/12/24 07:17 12/12/24 04:59 98 Nasal Cannula 2 Laboratory Results Laboratory Results - last 72 hr 12/10/24 12/10/24 12/10/24 13:40 17:54 21:18 WBC 7.34 RBC 3.87 L Hgb 11.4 L Hct 34.8 L MCV 89.9 MCH 29.5 MCHC 32.8 RDW Std Deviation 41.3 RDW Coeff of Linda 12.6 Plt Count 215 MPV 9.9 Immature Gran % (Auto) 0.7 Neut % (Auto) 54.7 Lymph % (Auto) 33.7 [place] % (Auto) 8.2 Eos % (Auto) 2.3 Baso % (Auto) 0.4 Neut # (Auto) 4.02 Lymph # (Auto) 2.47 [place] # (Auto) 0.60 H Eos # (Auto) 0.17 Baso # (Auto) 0.03 Immature Gran # (Auto) 0.05 ABG pH ABG pCO2 ABG pO2 ABG HCO3 ABG O2 Saturation ABG Base Excess Jose L Test Oxygen Given Sodium 140 Potassium 4.0 Chloride 105 Carbon Dioxide 29 Anion Gap 6 BUN 26 H Creatinine 0.92 Est Cr Clr Drug Dosing 42.0 eGFR 61.40 BUN/Creatinine Ratio 28.3 H Glucose 236 H POC Glucose 108 H 109 H Lactate Calcium 9.5 Total Bilirubin 0.5 AST 20 ALT 19 Alkaline Phosphatase 49 Troponin I High Sens 8.8 Total Protein 6.9 Albumin 3.5 Globulin 3.4 Albumin/Globulin Ratio 1.0 Lipase 37 Vitamin B12 Urine Color Urine Appearance Urine pH Ur Specific [place] Urine Protein Urine Glucose (UA) Urine Ketones Urine Blood Urine Nitrite Urine Bilirubin Urine Urobilinogen Ur Leukocyte Esterase Urine WBC (Auto) Urine RBC (Auto) U Hyaline Cast (Auto) U Epithel Cells (Auto) Urine Bacteria (Auto) Urine RBC Urine WBC Ur Epithelial Cells Urine Bacteria Urine Comment Nasal Screen MRSA (PCR) 12/10/24 12/11/24 12/11/24 Unknown 01:11 01:12 WBC RBC Hgb Hct MCV MCH MCHC RDW Std Deviation RDW Coeff of Linda Plt Count MPV Immature Gran % (Auto) Neut % (Auto) Lymph % (Auto) [place] % (Auto) Eos % (Auto) Baso % (Auto) Neut # (Auto) Lymph # (Auto) [place] # (Auto) Eos # (Auto) Baso # (Auto) Immature Gran # (Auto) ABG pH ABG pCO2 ABG pO2 ABG HCO3 ABG O2 Saturation ABG Base Excess Jose L Test Oxygen Given Sodium Potassium Chloride Carbon Dioxide Anion Gap BUN Creatinine Est Cr Clr Drug Dosing eGFR BUN/Creatinine Ratio Glucose POC Glucose 105 H Lactate Calcium Total Bilirubin AST ALT Alkaline Phosphatase Troponin I High Sens Total Protein Albumin Globulin Albumin/Globulin Ratio Lipase Vitamin B12 Urine Color Yellow Urine Appearance Clear Urine pH 5.5 Ur Specific [place] 1.015 Urine Protein Negative Urine Glucose (UA) Negative Urine Ketones Negative Urine Blood Negative Urine Nitrite Negative Urine Bilirubin Negative Urine Urobilinogen Negative Ur Leukocyte Esterase 1+ H Urine WBC (Auto) Urine RBC (Auto) U Hyaline Cast (Auto) U Epithel Cells (Auto) Urine Bacteria (Auto) Urine RBC 3-5 H Urine WBC 6-10 H Ur Epithelial Cells 11-20 H Urine Bacteria 1+ H Urine Comment Nasal Screen MRSA (PCR) Positive A 12/11/24 12/11/24 12/11/24 05:14 07:24 07:52 WBC RBC Hgb Hct MCV MCH MCHC RDW Std Deviation RDW Coeff of Linda Plt Count MPV Immature Gran % (Auto) Neut % (Auto) Lymph % (Auto) [place] % (Auto) Eos % (Auto) Baso % (Auto) Neut # (Auto) Lymph # (Auto) [place] # (Auto) Eos # (Auto) Baso # (Auto) Immature Gran # (Auto) ABG pH ABG pCO2 ABG pO2 ABG HCO3 ABG O2 Saturation ABG Base Excess Jose L Test Oxygen Given Sodium Potassium Chloride Carbon Dioxide Anion Gap BUN Creatinine Est Cr Clr Drug Dosing eGFR BUN/Creatinine Ratio Glucose POC Glucose 107 H 108 H Lactate 0.8 Calcium Total Bilirubin AST ALT Alkaline Phosphatase Troponin I High Sens Total Protein Albumin Globulin Albumin/Globulin Ratio Lipase Vitamin B12 Urine Color Urine Appearance Urine pH Ur Specific [place] Urine Protein Urine Glucose (UA) Urine Ketones Urine Blood Urine Nitrite Urine Bilirubin Urine Urobilinogen Ur Leukocyte Esterase Urine WBC (Auto) Urine RBC (Auto) U Hyaline Cast (Auto) U Epithel Cells (Auto) Urine Bacteria (Auto) Urine RBC Urine WBC Ur Epithelial Cells Urine Bacteria Urine Comment Nasal Screen MRSA (PCR) 12/11/24 12/11/24 12/11/24 11:19 16:57 20:18 WBC RBC Hgb Hct MCV MCH MCHC RDW Std Deviation RDW Coeff of Linda Plt Count MPV Immature Gran % (Auto) Neut % (Auto) Lymph % (Auto) [place] % (Auto) Eos % (Auto) Baso % (Auto) Neut # (Auto) Lymph # (Auto) [place] # (Auto) Eos # (Auto) Baso # (Auto) Immature Gran # (Auto) ABG pH ABG pCO2 ABG pO2 ABG HCO3 ABG O2 Saturation ABG Base Excess Jose L Test Oxygen Given Sodium Potassium Chloride Carbon Dioxide Anion Gap BUN Creatinine Est Cr Clr Drug Dosing eGFR BUN/Creatinine Ratio Glucose POC Glucose 163 H 128 H 197 H Lactate Calcium Total Bilirubin AST ALT Alkaline Phosphatase Troponin I High Sens Total Protein Albumin Globulin Albumin/Globulin Ratio Lipase Vitamin B12 Urine Color Urine Appearance Urine pH Ur Specific [place] Urine Protein Urine Glucose (UA) Urine Ketones Urine Blood Urine Nitrite Urine Bilirubin Urine Urobilinogen Ur Leukocyte Esterase Urine WBC (Auto) Urine RBC (Auto) U Hyaline Cast (Auto) U Epithel Cells (Auto) Urine Bacteria (Auto) Urine RBC Urine WBC Ur Epithelial Cells Urine Bacteria Urine Comment Nasal Screen MRSA (PCR) 12/11/24 12/12/24 12/12/24 Unknown 04:50 05:33 WBC 9.16 RBC 3.71 L Hgb 11.4 L Hct 34.1 L MCV 91.9 MCH 30.7 MCHC 33.4 RDW Std Deviation 42.3 RDW Coeff of Linda 12.6 Plt Count 203 MPV 9.8 Immature Gran % (Auto) Neut % (Auto) Lymph % (Auto) [place] % (Auto) Eos % (Auto) Baso % (Auto) Neut # (Auto) Lymph # (Auto) [place] # (Auto) Eos # (Auto) Baso # (Auto) Immature Gran # (Auto) ABG pH 7.36 ABG pCO2 49 H ABG pO2 120 H ABG HCO3 28 H ABG O2 Saturation 98.5 H ABG Base Excess 1.5 Jose L Test Pos Oxygen Given 2L Sodium 139 Potassium 4.3 Chloride 105 Carbon Dioxide 30 Anion Gap 4 BUN 24 H Creatinine 0.96 Est Cr Clr Drug Dosing 40.2 eGFR 58.34 BUN/Creatinine Ratio 25.0 H Glucose 109 H POC Glucose Lactate Calcium 9.2 Total Bilirubin 0.5 AST 25 ALT 19 Alkaline Phosphatase 46 Troponin I High Sens 8.3 Total Protein 6.8 Albumin 3.7 Globulin 3.1 Albumin/Globulin Ratio 1.2 Lipase Vitamin B12 390 Urine Color Yellow Urine Appearance Clear Urine pH 5.5 Ur Specific [place] 1.016 Urine Protein Negative Urine Glucose (UA) Negative Urine Ketones Negative Urine Blood Negative Urine Nitrite Negative Urine Bilirubin Negative Urine Urobilinogen Negative Ur Leukocyte Esterase Trace H Urine WBC (Auto) 6-10 H Urine RBC (Auto) 0-2 U Hyaline Cast (Auto) 0-2 U Epithel Cells (Auto) 0-2 Urine Bacteria (Auto) None Seen Urine RBC Urine WBC Ur Epithelial Cells Urine Bacteria Urine Comment Nasal Screen MRSA (PCR) 12/12/24 12/12/24 08:14 11:48 WBC RBC Hgb Hct MCV MCH MCHC RDW Std Deviation RDW Coeff of Linda Plt Count MPV Immature Gran % (Auto) Neut % (Auto) Lymph % (Auto) [place] % (Auto) Eos % (Auto) Baso % (Auto) Neut # (Auto) Lymph # (Auto) [place] # (Auto) Eos # (Auto) Baso # (Auto) Immature Gran # (Auto) ABG pH ABG pCO2 ABG pO2 ABG HCO3 ABG O2 Saturation ABG Base Excess Jose L Test Oxygen Given Sodium Potassium Chloride Carbon Dioxide Anion Gap BUN Creatinine Est Cr Clr Drug Dosing eGFR BUN/Creatinine Ratio Glucose POC Glucose 134 H 253 H Lactate Calcium Total Bilirubin AST ALT Alkaline Phosphatase Troponin I High Sens Total Protein Albumin Globulin Albumin/Globulin Ratio Lipase Vitamin B12 Urine Color Urine Appearance Urine pH Ur Specific [place] Urine Protein Urine Glucose (UA) Urine Ketones Urine Blood Urine Nitrite Urine Bilirubin Urine Urobilinogen Ur Leukocyte Esterase Urine WBC (Auto) Urine RBC (Auto) U Hyaline Cast (Auto) U Epithel Cells (Auto) Urine Bacteria (Auto) Urine RBC Urine WBC Ur Epithelial Cells Urine Bacteria Urine Comment Nasal Screen MRSA (PCR) Medications Administered Current Inpatient Medications Atorvastatin Calcium (Atorvastatin 40 Mg Tab) 40 mg PO HS MARIE Stop: 01/09/25 20:59 Last Admin: 12/11/24 22:11 Dose: 40 mg Benzonatate (Benzonatate 100 Mg Capsule) 100 mg PO TID PRN PRN Reason: Cough Stop: 01/09/25 18:30 Clopidogrel Bisulfate (Clopidogrel Bisulfate 75 Mg Tab) 75 mg PO QAM MARIE Stop: 01/10/25 08:59 Last Admin: 12/12/24 08:28 Dose: 75 mg Dextrose (Dextrose 50% 50 Ml Syringe) 25 - 50 ml IV UD PRN; Protocol PRN Reason: Hypoglycemia Protocol Stop: 01/09/25 18:29 Doxazosin Mesylate (Doxazosin Mesylate 1 Mg Tab) 1 mg PO QAM MARIE Stop: 01/10/25 08:59 Last Admin: 10/10/25 08:29 Dose: 1 mg Duloxetine HCl (Duloxetine Hcl 60 Mg Cap) 60 mg PO DAILY MARIE Stop: 01/10/25 08:59 Last Admin: 12/12/24 08:28 Dose: 60 mg Glucagon (Glucagon For Inj 1 Mg Vial) 1 mg SQ UD PRN; Protocol PRN Reason: Hypoglycemia Protocol Stop: 01/09/25 18:29 Glucose (Glucose 40% Gel 15 Gm Tube) 15 - 30 gm PO UD PRN; Protocol PRN Reason: Hypoglycemia Protocol Stop: 01/09/25 18:29 Glucose (Glucose 10 Tab/Tube) 4 - 8 tab PO UD PRN; Protocol PRN Reason: Hypoglycemia Protocol Stop: 01/09/25 18:29 Ceftriaxone Sodium (Rocephin) 2,000 mg in 50 mls @ 100 mls/hr IV Q24H MARIE Stop: 12/21/24 14:59 Last Infusion: 12/11/24 16:39 Dose: Infused Insulin Aspart (Insulin Aspart Per Unit Charge) 0 units SC ACHS MARIE Stop: 01/09/25 20:59 Last Admin: 12/12/24 13:11 Dose: 6 units Insulin Glargine (Lantus Per Unit Charge) 12 units SQ DAILY MARIE Stop: 01/10/25 08:59 Last Admin: 12/12/24 08:37 Dose: 12 units Ketoconazole (Ketoconazole 2% Cr 15 Gm Tube) 1 appln EXT BID MARIE Stop: 12/20/24 20:59 Last Admin: 12/12/24 08:28 Dose: 1 appln Lactobacillus Acidophilus (Advanced Probiotic 625 Mg Capsule) 1,250 mg PO DAILY MARIE Stop: 01/10/25 08:59 Last Admin: 12/12/24 08:28 Dose: 1,250 mg Levothyroxine Sodium (Levothyroxine Sodium 25 Mcg Tablet) 25 mcg PO DAILYBB MARIE Stop: 01/10/25 06:29 Last Admin: 12/12/24 05:58 Dose: 25 mcg Lidocaine (Lidocaine 5% 1 Patch) 1 patch TD DAILY MARIE Stop: 01/10/25 08:59 Last Admin: 12/12/24 08:29 Dose: 1 patch Lisinopril (Lisinopril 40 Mg Tab) 40 mg PO QAM MARIE Stop: 01/10/25 08:59 Last Admin: 12/12/24 08:29 Dose: 40 mg Loperamide HCl (Loperamide Hcl 2 Mg Cap) 2 mg PO UD PRN PRN Reason: Diarrhea Stop: 01/09/25 18:39 Metoprolol Succinate (Metoprolol Succ 50mg Ext Rel Tab) 50 mg PO Q12 MARIE Stop: 01/09/25 20:59 Last Admin: 12/12/24 08:27 Dose: 50 mg Miscellaneous (Remove Lidoderm Patch) 1 each N/A DAILY@2100 MARIE Stop: 01/09/25 20:59 Last Admin: 12/11/24 22:12 Dose: 1 each Miscellaneous (Carbohydrates For Hypoglycemia ) 15 - 30 gm PO UD PRN PRN Reason: Hypoglycemia Protocol Stop: 01/09/25 18:29 Multivitamins/Minerals (Cerovite Adv Formula Tab) 1 tab PO DAILY [facility] Stop: 01/10/25 08:59 Last Admin: 12/12/24 08:28 Dose: 1 tab Ondansetron HCl (Ondansetron 4 Mg Od Tab) 4 mg PO Q4H PRN PRN Reason: Nausea And Vomiting Stop: 01/09/25 18:38 Triamcinolone Acetonide (Triamcinolone Acet 0.1% Cr 15 Gm Tube) 1 appln TOP BID MARIE Stop: 01/09/25 20:59 Last Admin: 12/12/24 08:27 Dose: 1 appln Vibegron (Vibegron 75 Mg Tab) 75 mg PO QAM MARIE Stop: 01/10/25 08:59 Last Admin: 12/12/24 08:29 Dose: 75 mg Vitamin D (Cholecalciferol 25 Mcg (1000 Units) Tab) 50 mcg PO DAILY MARIE Stop: 01/10/25 08:59 Last Admin: 12/12/24 08:28 Dose: 50 mcg PG Care Time/CCT Total # of Minutes Spent Total Time Spent with Patient: Total time spent is greater than 50% in coordination of care (as documented) at patient's floor/unit and/or counseling patient: Coding Level of Care Code 46786 SUB INP/OBS CARE 1/25MIN Diagnoses Urinary tract infection N39.0 Acute alteration in mental status R41.82 Diarrhea R19.7 Time Spent (min) 25
[2024-12-12 16:15] LABS: Adenovirus F 40/41 PCR Not Detected (NotDetected); Campylobacter PCR Not Detected (NotDetected); Enteroaggregative E.coli(EAEC) Not Detected (NotDetected); Shiga-like Toxin E.coli (STEC) Not Detected (NotDetected); Vibrio species PCR Not Detected (NotDetected)
--- NOTE | 2024-12-12 16:56 | Communication Note ---
Date of Service: December 12, 2024 diarrhea, found to has norovirus positive
--- NOTE | 2024-12-12 17:36 | Electroencephalogram ---
EEG Procedure Note Date of Service December 12, 2024 Start / End Times Start Time: 10:23 AM End Time: 10:43 AM Referring Physician Jason History Altered mental status, somnolence Home Medication List Medication Instructions Recorded Confirmed Type OneTouch Verio Reflect Meter #1 ea 08/05/21 10/30/24 Rx (blood-glucose meter) OneTouch Delica Plus Lancet 33 #400 ea 07/28/22 10/30/24 Rx gauge (lancets) vit C 250 mg-vit E 90 mg-zinc 40 1 tab PO BID 08/17/22 12/10/24 History mg-copper 1 pm-smllpf-fzjvvq capsule (PreserVision AREDS-2) ondansetron HCl 4 mg tablet 4 mg PO Q4 PRN Nausea And Vomiting 05/20/24 12/10/24 History OneTouch Verio test strips (blood #300 ea 05/29/24 10/30/24 Rx sugar diagnostic) triamcinolone acetonide 0.1 % 1 applic topical BID #30 grams 05/29/24 12/10/24 Rx topical cream atorvastatin 40 mg tablet (Lipitor) 40 mg PO HS #90 tabs 07/17/24 12/10/24 Rx cranberry 500 mg capsule 500 mg PO QAM 08/04/24 12/10/24 History hydroxyzine HCl 10 mg tablet 10 mg PO BID 08/04/24 12/10/24 History L.acid,par,plant,rham-B.anim,bif,brev,inf,long 1 cap PO DAILY 09/17/24 12/10/24 History 30 billion cell capsule (Probiotic [facility]) clopidogrel 75 mg tablet (Plavix) 75 mg PO QAM 09/17/24 12/10/24 History doxazosin 1 mg tablet 1 mg PO QAM 09/17/24 12/10/24 History insulin glargine U-300 conc 300 40 unit subcut QAM 09/17/24 12/10/24 History unit/mL (3 mL) subcutaneous pen (Toujeo Max U-300 SoloStar) lidocaine 5 % topical patch 1 patch topical DAILY Pain 09/17/24 12/10/24 History multivitamin with minerals 1 tab PO DAILY 09/17/24 12/10/24 History spironolactone 25 mg tablet 12.5 mg PO QAM 09/17/24 12/10/24 History (Aldactone) vibegron 75 mg tablet (Gemtesa) 75 mg PO QAM 09/17/24 12/10/24 History cholecalciferol (vitamin D3) 50 50 mcg PO DAILY 10/06/24 12/10/24 History mcg (2,000 unit) capsule methenamine hippurate 1 gram tablet 1 g PO BID #180 tabs 10/14/24 12/10/24 Rx metoprolol succinate 50 mg 50 mg PO Q12 10/30/24 12/10/24 History tablet,extended release 24 hr pen needle, diabetic 32 gauge x #400 ea 11/12/24 Rx 5/32" duloxetine 60 mg capsule,delayed 60 mg PO DAILY #30 caps 11/13/24 12/10/24 Rx release benzonatate 100 mg capsule 100 mg PO TID PRN Cough 12/01/24 12/10/24 History insulin lispro 100 unit/mL 6 unit subcut TIDM 12/01/24 12/10/24 History subcutaneous pen (Humalog KwikPen (U-100) Insulin) lisinopril 20 mg tablet 40 mg PO QAM 12/01/24 12/10/24 History loperamide 2 mg tablet (Imodium 2 mg PO Q8 PRN Diarrhea #90 tabs 12/01/24 12/10/24 Rx A-D) levothyroxine 25 mcg capsule 25 mcg PO DAILY #30 caps 12/02/24 12/10/24 Rx ketoconazole 2 % topical cream 1 applic topical BID PRN Itching 12/10/24 12/10/24 History Inpatient Medication List Atorvastatin Calcium (Atorvastatin 40 Mg Tab) 40 mg PO [facility] Stop: 01/09/25 20:59 Last Admin: 12/11/24 22:11 Dose: 40 mg Documented By: Admin: 12/10/24 21:08 Dose: 40 mg Documented By: LEONEL Clopidogrel Bisulfate (Clopidogrel Bisulfate 75 Mg Tab) [facility] [place]: 01/10/25 08:59 Last Admin: 12/12/24 08:28 Dose: 75 mg Documented By: saúl Admin: 12/11/24 08:43 Dose: 75 mg Documented By: ROSEMARIE Doxazosin Mesylate (Doxazosin Mesylate 1 Mg Tab) [facility] [place]: 01/10/25 08:59 Last Admin: 12/12/24 08:29 Dose: 1 mg Documented By: saúl Admin: 12/11/24 08:38 Dose: 1 mg Documented By: ROSEMARIE Duloxetine HCl (Duloxetine Hcl 60 Mg Cap) 60 mg PO DAILY [facility] Stop: 01/10/25 08:59 Last Admin: 12/12/24 08:28 Dose: 60 mg Documented By: saúl Admin: 12/11/24 08:40 Dose: 60 mg Documented By: ROSEMARIE Ceftriaxone Sodium (Rocephin) 2,000 mg in 50 mls @ 100 mls/hr IV Q24H [facility] Stop: 12/21/24 14:59 Last Infusion: 12/12/24 16:19 Dose: Infused Documented By: saúl Admin: 12/12/24 15:46 Dose: 100 mls/hr Documented By: saúl Infusion: 12/11/24 16:39 Dose: Infused Documented By: Admin: 12/11/24 16:09 Dose: 100 mls/hr Documented By: VERNA Insulin Aspart (Insulin Aspart Per Unit Charge) 0 units SC ACHS [facility] Stop: 01/09/25 20:59 Last Admin: 12/12/24 13:11 Dose: 6 units Documented By: saúl Co-signed By: JILLIAN Admin: 12/12/24 08:36 Dose: 7 units Documented By: saúl Co-signed By: RUBENS Admin: 12/11/24 22:11 Dose: 2 units Documented By: CHRISTIANA Co-signed By: REMIGIO Admin: 12/11/24 18:03 Dose: 3 units Documented By: VERNA Co-signed By: jeferson Admin: 12/11/24 12:04 Dose: 5 units Documented By: ROSEMARIE Co-signed By: CORTES Admin: 12/11/24 08:01 Dose: 3 units Documented By: ROSEMARIE Co-signed By: CORTES Admin: 12/10/24 21:19 Dose: Not Given Documented By: LEONEL Insulin Glargine (Lantus Per Unit Charge) 12 units SQ DAILY [facility] Stop: 01/10/25 08:59 Last Admin: 12/12/24 08:37 Dose: 12 units Documented By: saúl Co-signed By: RUBENS Admin: 12/11/24 10:25 Dose: 12 units Documented By: ROSEMARIE Co-signed By: CORTES Ketoconazole (Ketoconazole 2% Cr 15 Gm Tube) 1 appln EXT BID [facility] Stop: 12/20/24 20:59 Last Admin: 12/12/24 08:28 Dose: 1 appln Documented By: saúl Admin: 12/11/24 22:11 Dose: 1 appln Documented By: Admin: 12/11/24 08:55 Dose: 1 appln Documented By: Admin: 12/10/24 21:09 Dose: 1 appln Documented By: LEONEL Lactobacillus Acidophilus (Advanced Probiotic 625 Mg Capsule) 1,250 mg PO DAILY [facility] Stop: 01/10/25 08:59 Last Admin: 12/12/24 08:28 Dose: 1,250 mg Documented By: saúl Admin: 12/11/24 08:40 Dose: 1,250 mg Documented By: ROSEMARIE Levothyroxine Sodium (Levothyroxine Sodium 25 Mcg Tablet) 25 mcg PO DAILYBB [facility] Stop: 01/10/25 06:29 Last Admin: 12/12/24 05:58 Dose: 25 mcg Documented By: Admin: 12/11/24 07:01 Dose: 25 mcg Documented By: ROSEMARIE Lidocaine (Lidocaine 5% 1 Patch) 1 patch TD DAILY [facility] Stop: 01/10/25 08:59 Last Admin: 12/12/24 08:29 Dose: 1 patch Documented By: saúl Admin: 12/11/24 08:43 Dose: 1 patch Documented By: ROSEMARIE Lisinopril (Lisinopril 40 Mg Tab) 40 mg PO QAM [facility] Stop: 01/10/25 08:59 Last Admin: 12/12/24 08:29 Dose: 40 mg Documented By: saúl Admin: 12/11/24 08:40 Dose: 40 mg Documented By: ROSEMARIE Metoprolol Succinate (Metoprolol Succ 50mg Ext Rel Tab) 50 mg PO Q12 [facility] Stop: 01/09/25 20:59 Last Admin: 12/12/24 08:27 Dose: 50 mg Documented By: saúl Admin: 12/11/24 22:12 Dose: 50 mg Documented By: Admin: 12/11/24 09:27 Dose: Not Given Documented By: Admin: 12/10/24 21:08 Dose: Not Given Documented By: LEONEL Miscellaneous (Remove Lidoderm Patch) 1 each N/A DAILY@2100 [facility]IE Stop: 01/09/25 20:59 Last Admin: 12/11/24 22:12 Dose: 1 each Documented By: Admin: 12/10/24 21:16 Dose: 1 each Documented By: LEONEL Multivitamins/Minerals (Cerovite Adv Formula Tab) 1 tab PO DAILY [facility] Stop: 01/10/25 08:59 Last Admin: 12/12/24 08:28 Dose: 1 tab Documented By: saúl Admin: 12/11/24 08:41 Dose: 1 tab Documented By: ROSEMARIE Triamcinolone Acetonide (Triamcinolone Acet 0.1% Cr 15 Gm Tube) 1 appln TOP BID MARIE Stop: 01/09/25 20:59 Last Admin: 12/12/24 08:27 Dose: 1 appln Documented By: saúl Admin: 12/11/24 22:12 Dose: 1 appln Documented By: Admin: 12/11/24 08:56 Dose: 1 appln Documented By: Admin: 12/10/24 21:09 Dose: 1 appln Documented By: LEONEL Vibegron (Vibegron 75 Mg Tab) 75 mg PO QAM MARIE Stop: 01/10/25 08:59 Last Admin: 12/12/24 08:29 Dose: 75 mg Documented By: saúl Admin: 12/11/24 08:39 Dose: 75 mg Documented By: ROSEMARIE Vitamin D (Cholecalciferol 25 Mcg (1000 Units) Tab) 50 mcg PO DAILY [facility] Stop: 01/10/25 08:59 Last Admin: 12/12/24 08:28 Dose: 50 mcg Documented By: saúl Admin: 12/11/24 08:40 Dose: 50 mcg Documented By: ROSEMARIE Discontinued Medications Sodium Chloride (Nss) 500 mls @ 999 mls/hr IV .Q31M STA Stop: 12/10/24 14:31 Last Infusion: 12/10/24 15:21 Dose: Infused Documented By: Admin: 12/10/24 14:19 Dose: 999 mls/hr Documented By: TULIO Acetaminophen (Ofirmev) 1,000 mg in 100 mls @ 400 mls/hr IV NOW STA Stop: 12/10/24 14:15 Last Infusion: 12/10/24 15:21 Dose: Infused Documented By: Admin: 12/10/24 14:19 Dose: 400 mls/hr Documented By: TULIO Ceftriaxone Sodium (Rocephin) 2,000 mg in 50 mls @ 100 mls/hr IV NOW STA Stop: 12/10/24 16:59 Last Infusion: 12/10/24 18:47 Dose: Infused Documented By: Admin: 12/10/24 16:45 Dose: 100 mls/hr Documented By: TULIO Sodium Chloride (Nss) 500 mls @ 80 mls/hr IV .Q6H15M MARIE Stop: 12/11/24 00:44 Last Infusion: 12/11/24 02:30 Dose: Infused Documented By: Admin: 12/10/24 19:50 Dose: 80 mls/hr Documented By: LEONEL Ioversol (Optiray 320 100ml) 90 ml IV ONCE ONE Stop: 12/10/24 15:22 Last Admin: 12/10/24 15:21 Dose: 90 ml Documented By: SERGIO Ondansetron HCl (Ondansetron Inj 2 Mg/Ml 2 Ml Vial) 4 mg IV NOW STA Stop: 12/10/24 14:02 Last Admin: 12/10/24 14:19 Dose: 4 mg Documented By: TULIO Vancomycin HCl (Vancomycin Hcl 125 Mg Cap) 125 mg PO NOW STA Stop: 12/10/24 19:52 Last Admin: 12/10/24 21:08 Dose: 125 mg Documented By: LEONEL Description This is a 21 electrode EEG with a single channel dedicated to limited EKG. The electrodes were placed in accordance with the International 10-20 system. The predominant background rhythm consists of 5 to 6 Hz theta activity with a minimal degree of admixed 10 Hz alpha rhythm seen intermittently. Photic stimulation is unremarkable. Hyperventilation is not performed. There is a symmetric frontal beta rhythm. There is intermittent frontal delta activity. There is no focal slowing. There are no epileptiform abnormalities. Interpretation This awake/drowsy EEG reveals evidence of a nonspecific encephalopathy. No epileptiform abnormalities. [facility] EEG Procedure Codes Indication for Procedure (1) Encephalopathy: Neurology Neurology: 51111 EEG include record awake & drowsy
--- NOTE | 2024-12-13 03:05 | Ultrasound Report ---
EXAM: US venous doppler LE RT CLINICAL HISTORY: Calf tenderness and thigh tenderness. TECHNIQUE: Ultrasound examination of right lower extremity veins was performed in real time and duplex. One or more of the following were performed- spectral analysis, resistive index, waveform analysis, and pulsed Doppler. COMPARISON: Prior US dated April 20, 2021. FINDINGS: Normal phasic, non-pulsatile, and spontaneous flow is noted in the right common femoral, superficial femoral, popliteal and posterior tibial, and peroneal veins. Visualized veins of the right lower extremity demonstrate normal compressibility. No sonographic evidence of acute deep vein thrombosis (DVT) is detected in the visualized veins of the lower extremity. Compression and Augmentation: All evaluated veins compress fully with the applied transducer pressure. Augmentation of venous flow is noted with distal compression. Additional Findings: No evidence of intraluminal thrombus. IMPRESSION: 1. No sonographic evidence of acute DVT was detected at the time of examination. 2. No significant interval changes. Disclaimer: DVT could be missed early in the disease when clot burden is minimal. For patients with moderate and high pretest probability of DVT and negative ultrasound, the [employer] clinical guidelines recommend testing with a D-dimer assay or repeat ultrasound in 5-7 days. If symptoms worsen, the Society of radiologists in ultrasound recommends repeating ultrasound even earlier. Electronically signed by Jonny Whitney 12-13-2024 03:02 AM
[2024-12-13 07:13] LABS: Hematocrit (blood only) 35.3 % (37.0-47.0); Hemoglobin 12.0 g/dl (12.0-16.0); Mean Corpuscular Hemoglobin 30.7 pg (25.0-34.0); Mean Corpuscular Volume 90.3 fL (80.0-100.0); Platelet Count 178 K/uL (130-400); RDW Standard Deviation 40.6 fL (36.4-46.3); Red Blood Count 3.91 M/uL (4.20-5.40); White Blood Count 8.19 K/ul (4.8-10.8)
[2024-12-13 07:35] LABS: Alanine Aminotransferase 19.0 U/L (7-52); Albumin Globulin Ratio 1.1 (0.9-2); Albumin Level 3.6 gm/dl (3.4-5.0); Alkaline Phosphatase 45.0 U/L (34-104); Anion Gap 6.0 (3-11); Bilirubin,Total 0.5 mg/dl (0.2-1.0); Blood Urea Nitrogen 21.0 mg/dl (6-23); Calcium 9.4 mg/dl (8.6-10.3); Carbon Dioxide 31.0 mmol/L (21-32); Chloride 103.0 mmol/L (98-107); Creatinine Clr Calc Pharmacy 49.5 ml/min; Globulin 3.3 gm/dl (2.5-4.0); Glucose 139.0 mg/dl (70-99(Fasting)); Potassium 4.2 mmol/L (3.5-5.1); Sodium 140.0 mmol/L (136-145); Total Protein 6.9 gm/dl (6.0-8.3)
[2024-12-13] MEDS ORDERED: PHA DELIRIUM CONSULT PRN (11:50)
--- NOTE | 2024-12-13 18:59 | Hospitalist Progress Note ---
Date of Service December 13, 2024 Assessment & Plan (1) Urinary tract infection: Plan: Sofia Carpenter is a 84 yo woman with PMH of recurrent UTI, urinary incontinence, multiples strokes, CAD with stent, insulin dependent diabetes, chronic low back pain. neuropathy. she has had urinary incontinence for 3-4 years she's has had multiple admission for recurrent UTI, but still unable to see urologist. in addition, she's have worsening diarrhea for several weeks. she has gallbladder surgery in the 1983 and been having diarrhea since. on 12/10/2024, her daughter in law, Katya ([phone]), noticed AMS, dysuria, and brought her to our hospital for evaluation. when she's was sleeping in the ED, her pulse oximetry desaturate into the 80s and started supplemental oxygen. she will be admitted for management of UTI, septic encephalopathy. diarrhea and monitor for electrolyte I suspect she has undiagnosed sleep apnea, partially contribute to has daytime somnolence, her CT head is negative for bleeding, she's denied using any nacrotic 1. acute recurrent UTI 2. septic encephalopathy 3. daytime somnolence concerning for obstructive sleep apnea 4. hypoxic episode 5. diarrhea episode 6. urinary incontinence 7. insulin dependent diabetes ( home dose of 40 unt long acting and 10 units TID with meals) 8. chronic low back pain on cymbalta 9. neuropathy 10. hx of lupus 11. hx of CAD s/p stent 1. acute recurrent UTI she still have disoriented, plan for another 24-48 hours of IV ceftriaxone in the past, she was growing dos santos-sensitive E. coli multiple drug allergy; ciprofloxacin, sulfur, flagyl. 2. septic encephalopathy her mentation is improving from admission AAOx3; suspect her untreated sleep apnea is causing daytime somnolence 3. hypoxic episode, c/w supplemental oxygen suspect underlying sleep apnea on 2L currently, wean as tolerated 4. 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 difficile, stool PCR monitor for her potassium and magnesium level - pt found to have norovirus, though no further diarrheal episode, monitor and manage conservatively for now 5. urinary incontinence vibegron 75mg incontinence started 3-4 years ago 6. 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 hypertension, she's on metoprolol ER 50mg and lisinopril 20mg per the patient, she unsure if she's on aldactone 25mg she' also taking doxazosin 1mg 8. chronic low back pain, Cymbalta 60mg morning, 9, insulin dependent diabetes, she's on lantus 40 units morning, and then humalog 10 TID 10.recurrent UTI, she's methenamine , she's on cranberry she need urology f/u 11. code status; full code emergency contact: Katya [phone] 12/13: left message for Katya (2) Acute alteration in mental status: (3) Diarrhea: Admission and Anticipated Discharge Date Admission Date: December 10, 2024 Subjective More sleepy this morning. Discussed with bedside RN, pt was more active yesterday and has been exhausted since then. Later in the day, pt was more awake Review of Systems Review of Systems: Comprehensive ROS completed and is otherwise negative. Physical Exam Physical Exam: Gen: no acute distress, lying in bed comfortable HEENT: NC/AT, MMM Lungs: nonlabored breathing, CTAB CVS: s1s2nl, RRR Abd: nl bowel sounds, soft, NT / ND : no gomez Ext: no edema Neuro: keeping her eyes closed, sleepy. did wake up enough to converse. Initially oriented to self, but after being told where she was and the year / mo / date, pt was able to recall immediately. She also stated that today was her grandson's bday Psych: calm, cooperative Results & Data Results & Data Vital Signs (Past 12 Hours) Vital Signs Temp Pulse Pulse Resp BP Pulse Ox O2 Del Method 12/13/24 15:53 36.7 C 70 16 141/84 H 100 Nasal Cannula 12/13/24 14:31 63 12/13/24 11:40 Nasal Cannula 12/13/24 11:37 36.2 C L 53 L 16 111/58 L 99 Room Air 12/13/24 07:42 36.7 C 65 16 121/76 99 Nasal Cannula 12/13/24 07:16 65 O2 Flow Rate 12/13/24 15:53 2 12/13/24 14:31 12/13/24 11:40 2 12/13/24 11:37 12/13/24 07:42 3 12/13/24 07:16 PG Care Time/CCT Total # of Minutes Spent Total Time Spent with Patient: Total time spent is greater than 50% in coordination of care (as documented) at patient's floor/unit and/or counseling patient: Coding Level of Care Code 26361 SUB INP/OBS CARE 3/50MIN Diagnoses Urinary tract infection N39.0 Acute alteration in mental status R41.82 Diarrhea R19.7
[2024-12-14 06:52] LABS: Hematocrit (blood only) 36.2 % (37.0-47.0); Hemoglobin 11.5 g/dl (12.0-16.0); Mean Corpuscular Hemoglobin 29.4 pg (25.0-34.0); Mean Corpuscular Volume 92.6 fL (80.0-100.0); Platelet Count 191 K/uL (130-400); RDW Standard Deviation 41.9 fL (36.4-46.3); Red Blood Count 3.91 M/uL (4.20-5.40); White Blood Count 8.03 K/ul (4.8-10.8)
[2024-12-14 07:21] LABS: Alanine Aminotransferase 24.0 U/L (7-52); Albumin Globulin Ratio 1.1 (0.9-2); Albumin Level 3.6 gm/dl (3.4-5.0); Alkaline Phosphatase 45.0 U/L (34-104); Anion Gap 6.0 (3-11); Bilirubin,Total 0.4 mg/dl (0.2-1.0); Blood Urea Nitrogen 24.0 mg/dl (6-23); Calcium 9.4 mg/dl (8.6-10.3); Carbon Dioxide 32.0 mmol/L (21-32); Chloride 102.0 mmol/L (98-107); Creatinine Clr Calc Pharmacy 49.5 ml/min; Globulin 3.2 gm/dl (2.5-4.0); Glucose 166.0 mg/dl (70-99(Fasting)); Potassium 4.3 mmol/L (3.5-5.1); Sodium 140.0 mmol/L (136-145); Total Protein 6.8 gm/dl (6.0-8.3)
--- NOTE | 2024-12-14 18:46 | Hospitalist Progress Note ---
Date of Service December 14, 2024 Assessment & Plan (1) Urinary tract infection: Plan: Sofia Carpenter is a 84 yo woman with PMH of recurrent UTI, urinary incontinence, multiples strokes, CAD with stent, insulin dependent diabetes, chronic low back pain. neuropathy. she has had urinary incontinence for 3-4 years she's has had multiple admission for recurrent UTI, but still unable to see urologist. in addition, she's have worsening diarrhea for several weeks. she has gallbladder surgery in the 1983 and been having diarrhea since. on 12/10/2024, her daughter in law, Katya ([phone]), noticed AMS, dysuria, and brought her to our hospital for evaluation. when she's was sleeping in the ED, her pulse oximetry desaturate into the 80s and started supplemental oxygen. she will be admitted for management of UTI, septic encephalopathy. diarrhea and monitor for electrolyte I suspect she has undiagnosed sleep apnea, partially contribute to has daytime somnolence, her CT head is negative for bleeding, she's denied using any nacrotic 1. acute recurrent UTI 2. septic encephalopathy 3. daytime somnolence concerning for obstructive sleep apnea 4. hypoxic episode 5. diarrhea episode 6. urinary incontinence 7. insulin dependent diabetes ( home dose of 40 unt long acting and 10 units TID with meals) 8. chronic low back pain on cymbalta 9. neuropathy 10. hx of lupus 11. hx of CAD s/p stent 1. acute recurrent UTI she still have disoriented (improving), s/p 5 days of IV ceftriaxone (last dose 12/10 - 12/14/24) in the past, she was growing dos santos-sensitive E. coli multiple drug allergy; ciprofloxacin, sulfur, flagyl. 2. septic encephalopathy her mentation is improving from admission AAOx3; suspect her untreated sleep apnea is causing daytime somnolence 3. hypoxic episode, c/w supplemental oxygen suspect underlying sleep apnea on 2L currently, wean as tolerated 4. 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 difficile, stool PCR monitor for her potassium and magnesium level - pt found to have norovirus, though no further diarrheal episode, monitor and manage conservatively for now 5. urinary incontinence vibegron 75mg incontinence started 3-4 years ago 6. 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 hypertension, she's on metoprolol ER 50mg and lisinopril 20mg per the patient, she unsure if she's on aldactone 25mg she' also taking doxazosin 1mg 8. chronic low back pain, Cymbalta 60mg morning, 9, insulin dependent diabetes, she's on lantus 40 units morning, and then humalog 10 TID 10.recurrent UTI, she's methenamine , she's on cranberry she need urology f/u 11. code status; full code emergency contact: Katya [phone] 12/13: left message for Katya 12/14: left message for Katya (2) Acute alteration in mental status: (3) Diarrhea: Admission and Anticipated Discharge Date Admission Date: December 10, 2024 Subjective much more conversational this morning Eyes open the whole time Review of Systems Review of Systems: Comprehensive ROS completed and is otherwise negative. Physical Exam Physical Exam: Gen: no acute distress, lying in bed comfortable HEENT: NC/AT, MMM Lungs: nonlabored breathing, CTAB CVS: s1s2nl, RRR Abd: nl bowel sounds, soft, NT / ND : no gomez Ext: no edema Neuro: awake and alert Psych: calm, cooperative Results & Data Results & Data Vital Signs (Past 12 Hours) Vital Signs Temp Pulse Pulse Resp BP Pulse Ox O2 Del Method 12/14/24 15:57 36.7 C 54 L 16 145/67 H 94 Room Air 12/14/24 14:03 Room Air 12/14/24 13:30 55 L 12/14/24 10:57 36.3 C L 62 16 145/74 H 100 Nasal Cannula 12/14/24 07:41 36.4 C L 55 L 16 129/75 100 Nasal Cannula 12/14/24 07:18 57 L O2 Flow Rate 12/14/24 15:57 12/14/24 14:03 12/14/24 13:30 12/14/24 10:57 2 12/14/24 07:41 2 12/14/24 07:18 PG Care Time/CCT Total # of Minutes Spent Total Time Spent with Patient: Total time spent is greater than 50% in coordination of care (as documented) at patient's floor/unit and/or counseling patient: Coding Level of Care Code 48032 SUB INP/OBS CARE 2/35MIN Diagnoses Urinary tract infection N39.0 Acute alteration in mental status R41.82 Diarrhea R19.7
[2024-12-15] MEDS: ONDANSETRON 4 MG OD TAB PO PRN (04:56)
[2024-12-15] MEDS: METOCLOPRAMIDE HCL INJ 5 MG/ML 2 ML VIAL IV ONE (06:06)
[2024-12-15] MEDS: ACETAMINOPHEN 325 MG TAB PO PRN (06:09)
[2024-12-15 07:05] LABS: Hematocrit (blood only) 37.5 % (37.0-47.0); Hemoglobin 12.9 g/dl (12.0-16.0); Mean Corpuscular Hemoglobin 30.6 pg (25.0-34.0); Mean Corpuscular Volume 88.9 fL (80.0-100.0); Platelet Count 221 K/uL (130-400); RDW Standard Deviation 39.9 fL (36.4-46.3); Red Blood Count 4.22 M/uL (4.20-5.40); White Blood Count 9.52 K/ul (4.8-10.8)
[2024-12-15 07:25] LABS: Anion Gap 8.0 (3-11); Blood Urea Nitrogen 23.0 mg/dl (6-23); Calcium 9.8 mg/dl (8.6-10.3); Carbon Dioxide 29.0 mmol/L (21-32); Chloride 101.0 mmol/L (98-107); Creatinine Clr Calc Pharmacy 41.1 ml/min; Glucose 202.0 mg/dl (70-99(Fasting)); Potassium 4.3 mmol/L (3.5-5.1); Sodium 138.0 mmol/L (136-145)
--- NOTE | 2024-12-15 08:46 | Hospitalist Progress Note ---
Date of Service December 15, 2024 Assessment & Plan (1) Urinary tract infection: (2) Acute alteration in mental status: (3) Diarrhea: Plan Sofia Carpenter is a 84 yo woman with PMH of recurrent UTI, urinary incontinence, multiples strokes, CAD with stent, insulin dependent diabetes, chronic low back pain. neuropathy. she has had urinary incontinence for 3-4 years. she's has had multiple admission for recurrent UTI, but still unable to see urologist. in addition, she's have worsening diarrhea for several weeks. she has gallbladder surgery in the 1983 and been having diarrhea since. on 12/10/2024, her daughter in law, Katya ([phone]), noticed AMS, dysuria, and brought her to our hospital for evaluation. when she's was sleeping in the ED, her pulse oximetry desaturate into the 80s and started supplemental oxygen. she will be admitted for management of UTI, septic encephalopathy. diarrhea and monitor for electrolyte I suspect she has undiagnosed sleep apnea, partially contribute to has daytime somnolence, her CT head is negative for bleeding, she's denied using any narcotic #acute recurrent UTI - initial UA abnormal but cultures not sent, rpt UA neg, though pt was on abx - in the past, she was growing dos santos-sensitive E. coli - multiple drug allergy; ciprofloxacin, sulfur, flagyl. - s/p 5 days of IV ceftriaxone (12/10 - 12/14/24) #septic encephalopathy - her mentation is improving from admission - AAOx2-3; suspect her untreated sleep apnea is causing daytime somnolence #hypoxic episode, c/w supplemental oxygen - suspect underlying sleep apnea - weaned to RA but required 2L on 2-step - rpt CXR (12/15) showing some mild CHF - will order 1x Lasix #diarrhea episode- norovirus in stool - that's been ongoing for many decade since her gallbladder surgery - monitor for her potassium and magnesium level - pt found to have norovirus, though no further diarrheal episode, monitor and manage conservatively for now - low fat diet ordered #urinary incontinence vibegron 75mg - incontinence started 3-4 years ago #hx of multiple stroke, 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 #hx of CAD s/p stent (done at [facility]) - plavix and lipitor 40mg #Hypertension - she's on metoprolol ER 50mg and lisinopril 20mg - per the patient, she unsure if she's on aldactone 25mg - she is also taking doxazosin 1mg #chronic low back pain, Cymbalta 60mg morning #insulin dependent diabetes, she's on lantus 40 units morning, and then humalog 10 TID #Recurrent UTI, she's methenamine , she's on cranberry - she need urology f/u #code status: full code emergency contact: Katya [phone] 12/13: left message for Katya 12/14: left message for Katya 12/15: spoke to pt's DIL Katya Admission and Anticipated Discharge Date Admission Date: December 10, 2024 Subjective back to baseline this morning Review of Systems Review of Systems: Comprehensive ROS completed and is otherwise negative. Physical Exam Physical Exam: Gen: no acute distress, lying in bed comfortable HEENT: NC/AT, MMM Lungs: nonlabored breathing, CTAB CVS: s1s2nl, RRR Abd: nl bowel sounds, soft, NT / ND : no gomez Ext: no edema Neuro: AAox3 Psych: calm, cooperative Results & Data Results & Data Vital Signs (Past 12 Hours) Vital Signs Temp Pulse Pulse Resp BP Pulse Ox O2 Del Method 12/15/24 07:59 Room Air 12/15/24 07:12 66 12/15/24 07:06 36.6 C 64 18 180/74 H 93 Room Air 12/15/24 04:36 36.9 C 69 16 183/91 H 91 Room Air 12/14/24 23:11 36.7 C 71 16 162/79 H 92 Room Air 12/14/24 21:51 65 12/14/24 20:40 Nasal Cannula O2 Flow Rate 12/15/24 07:59 12/15/24 07:12 12/15/24 07:06 12/15/24 04:36 12/14/24 23:11 12/14/24 21:51 12/14/24 20:40 2 PG Care Time/CCT Total # of Minutes Spent Total Time Spent with Patient: Total time spent is greater than 50% in coordination of care (as documented) at patient's floor/unit and/or counseling patient: Coding Level of Care Code 05817 SUB INP/OBS CARE 50MIN Diagnoses Urinary tract infection N39.0 Acute alteration in mental status R41.82 Diarrhea R19.7
--- NOTE | 2024-12-15 12:09 | XRay Report ---
XR chest 1V portable CLINICAL HISTORY: hypoxia COMPARISON STUDY: 12/10/2024 FINDINGS: Stable cardiomegaly with mild pulmonary vascular congestion. No consolidation or pleural ef fusion seen. No pneumothorax. Stable interstitial opacities in the lung bases consistent with chronic lung disease. IMPRESSION: Mild CHF. ACT 112: Negative or not required by law. Electronically signed by: Donaldo Garcia M.D. 12/15/2024 12:08 PM
[2024-12-15] MEDS: FUROSEMIDE INJ 20 MG/2 ML VIAL IV ONE (16:33)
[2024-12-16 07:24] LABS: Hematocrit (blood only) 36.5 % (37.0-47.0); Hemoglobin 11.9 g/dl (12.0-16.0); Mean Corpuscular Hemoglobin 29.7 pg (25.0-34.0); Mean Corpuscular Volume 91.0 fL (80.0-100.0); Platelet Count 207 K/uL (130-400); RDW Standard Deviation 41.5 fL (36.4-46.3); Red Blood Count 4.01 M/uL (4.20-5.40); White Blood Count 8.68 K/ul (4.8-10.8)
[2024-12-16 07:45] LABS: Anion Gap 9.0 (3-11); Blood Urea Nitrogen 40.0 mg/dl (6-23); Calcium 9.5 mg/dl (8.6-10.3); Carbon Dioxide 29.0 mmol/L (21-32); Chloride 100.0 mmol/L (98-107); Creatinine Clr Calc Pharmacy 26.6 ml/min; Glucose 210.0 mg/dl (70-99(Fasting)); Magnesium 1.6 mg/dl (1.7-2.4); Potassium 4.2 mmol/L (3.5-5.1); Sodium 138.0 mmol/L (136-145)
[2024-12-16] MEDS: PLASMA-LYTE A 500 ML IV SCH (09:42)
[2024-12-16] MEDS ORDERED: PHARMACY GLYCEMIC MGMT CONSULT PRN (12:27)
--- NOTE | 2024-12-16 12:32 | Hospitalist Progress Note ---
Date of Service December 16, 2024 Assessment & Plan (1) Urinary tract infection: (2) Acute alteration in mental status: (3) Diarrhea: Plan Sofia Carpenter is a 84 yo woman with PMH of recurrent UTI, urinary incontinence, multiples strokes, CAD with stent, insulin dependent diabetes, chronic low back pain. neuropathy. she has had urinary incontinence for 3-4 years. she's has had multiple admission for recurrent UTI, but still unable to see urologist. in addition, she's have worsening diarrhea for several weeks. she has gallbladder surgery in the 1983 and been having diarrhea since. on 12/10/2024, her daughter in law, Katya ([phone]), noticed AMS, dysuria, and brought her to our hospital for evaluation. when she's was sleeping in the ED, her pulse oximetry desaturate into the 80s and started supplemental oxygen. she will be admitted for management of UTI, septic encephalopathy. diarrhea and monitor for electrolyte I suspect she has undiagnosed sleep apnea, partially contribute to has daytime somnolence, her CT head is negative for bleeding, she's denied using any narcotic #Persistent hypoxia - suspect underlying sleep apnea - weaned to RA but required 2L on 2-step - rpt CXR (12/15) showing some mild CHF - despite low dose diuretics, pt's hypoxia did not improve, thus suspect likely due to kyphosis as well as shallow breathing - pt will need long-term supplemental oxygen - pt would benefit from outpatient sleep study as well #Mild CINDI - no further diuresis - hold Lisinopril at this time - if not worsening, ok to d/c with outpatient Cr check #acute recurrent UTI - completed course of treatment - initial UA abnormal but cultures not sent, rpt UA neg, though pt was on abx - in the past, she was growing dos santos-sensitive E. coli - multiple drug allergy; ciprofloxacin, sulfur, flagyl. 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 #hx of CAD s/p stent (done at [facility]) - plavix and lipitor 40mg #Hypertension - she's on metoprolol ER 50mg (cont) and lisinopril 20mg (hold for now, last dose 12/16) - per the patient, she unsure if she's on aldactone 25mg - she is also taking doxazosin 1mg #chronic low back pain, Cymbalta 60mg morning #insulin dependent diabetes, she's on lantus 40 units morning, and then humalog 10 TID - currently on lantus and sliding scale - lantus dose was initially reduced due to lower intake in the setting of encephalopathy - will place glycemic pharmacy consult #Recurrent UTI, she's methenamine , she's on cranberry - she need urology f/u #code status: full code emergency contact: Katya [phone] 12/13: left message for Katya 12/14: left message for Katya 12/15: spoke to pt's DIL Katya 12/16: spoke with Katya, update provided Admission and Anticipated Discharge Date Admission Date: December 10, 2024 Subjective Despite gentle diuresis, pt still persistently hypoxic this morning at rest and with exertion at 84% on RA However, pt was able to recover to 94-95% with deep inspiration Review of Systems Review of Systems: Comprehensive ROS completed and is otherwise negative. Physical Exam Physical Exam: Gen: no acute distress, lying in bed comfortable HEENT: NC/AT, MMM Lungs: nonlabored breathing, CTAB CVS: s1s2nl, RRR Abd: nl bowel sounds, soft, NT / ND : no gomez Ext: no edema Neuro: AAox3 Psych: calm, cooperative Results & Data Results & Data Vital Signs (Past 12 Hours) Vital Signs Temp Pulse Pulse Resp BP Pulse Ox O2 Del Method 12/16/24 11:26 37.0 C 64 18 107/68 97 Nasal Cannula 12/16/24 08:00 Nasal Cannula 12/16/24 07:32 36.4 C L 61 18 128/83 95 Nasal Cannula 12/16/24 07:31 68 12/16/24 03:10 36.5 C 56 L 18 95/58 L 95 Nasal Cannula O2 Flow Rate 12/16/24 11:26 1 12/16/24 08:00 2 12/16/24 07:32 1 12/16/24 07:31 12/16/24 03:10 2 PG Care Time/CCT Total # of Minutes Spent Total Time Spent with Patient: Total time spent is greater than 50% in coordination of care (as documented) at patient's floor/unit and/or counseling patient: Coding Level of Care Code 60237 SUB INP/OBS CARE 3/50MIN Diagnoses Urinary tract infection N39.0 Acute alteration in mental status R41.82 Diarrhea R19.7
[2024-12-16] MEDS ORDERED: INSULIN ASPART PER UNIT CHARGE SC STA (12:35)
[2024-12-16] MEDS: LANTUS PER UNIT CHARGE SC ONE (12:54)
--- NOTE | 2024-12-16 14:05 | Pharmacy Report ---
Pharmacy Glycemic Short Note 2 - Date of Service December 16, 2024 - Glycemic Short BSG Results (Last 24 hours): 12/15/24 12/15/24 12/16/24 17:07 20:09 06:52 Glucose 210 H POC Glucose 201 H 187 H 12/16/24 12/16/24 12/16/24 07:45 11:56 11:57 Glucose POC Glucose 215 H 386 H* 394 H* OUTPATIENT ANTIDIABETIC REGIMEN: * Humalog 6 units SQ TIDM * Lantus 40 units SQ QAM * HbA1c 8.9% (09/18/24) ASSESSMENT: * Sofia is an 84 year old female admitted with UTI/hypoxia and a history of insulin dependent type 2 diabetes mellitus. Pharmacy has been consulted to assist with glycemic management while inpatient. * Fasting BSG elevated, received approximately 25% of home basal dose for the past 5 days which is contributing to elevated BSGs, will aim for at least 50% today up to 75% of home dose if BSGs remain elevated. * Carbohydrate ratio tightened significantly to a weight based stress of 3, will keep correction factor and goal range looser to prevent hypoglycemia. PLAN FOR INPATIENT GLYCEMIC CONTROL: * Hold outpatient oral diabetes medications * Basal insulin * Lantus 12 units SQ this AM * Lantus 10 units SQ @ 1254 today * Lantus 10 units SQ HS if BSG is greater than 180mg/dL * Lantus 25 units SQ daily starting tomorrow * Bolus insulin * NovoLog per scale ACHS or Q6hrs while NPO * Goal Range: Low 120 mg/dL - High 160 mg/dL * Correction Factor: 30 mg/dL/unit * Nutritional / Prandial insulin per carb ratio of 1 unit per 7 grams CHO consumed
[2024-12-16] MEDS ORDERED: LANTUS PER UNIT CHARGE SQ SCH (21:00)
[2024-12-16] MEDS: LANTUS PER UNIT CHARGE SQ SCH (21:15)
[2024-12-17] MEDS: LANTUS PER UNIT CHARGE SQ SCH (09:19)
[2024-12-17 10:25] LABS: Anion Gap 6.0 (3-11); Blood Urea Nitrogen 38.0 mg/dl (6-23); Calcium 9.4 mg/dl (8.6-10.3); Carbon Dioxide 33.0 mmol/L (21-32); Chloride 101.0 mmol/L (98-107); Creatinine Clr Calc Pharmacy 41.5 ml/min; Glucose 219.0 mg/dl (70-99(Fasting)); Magnesium 1.9 mg/dl (1.7-2.4); Potassium 4.7 mmol/L (3.5-5.1); Sodium 140.0 mmol/L (136-145)
--- NOTE | 2024-12-17 14:35 | Pharmacy Report ---
Pharmacy Glycemic Short Note 2 - Date of Service December 17, 2024 - Glycemic Short BSG Results (Last 24 hours): 12/16/24 12/16/24 12/17/24 16:59 20:02 08:10 Glucose POC Glucose 164 H 222 H 192 H 12/17/24 12/17/24 09:37 11:41 Glucose 219 H POC Glucose 217 H OUTPATIENT ANTIDIABETIC REGIMEN: * Humalog 6 units SQ TIDM * Lantus 40 units SQ QAM * HbA1c 8.9% (09/18/24) ASSESSMENT: 12/17 * Sofia received 59 units of insulin yesterday (32 were basal) * Fasting BSG this AM improved, will aim to continue about the same and adjust tomorrow if not improved further. * No changes to NovoLog at this time, may need tightened but will adjust cautiously to not cause hypoglycemia. 12/16 * Sofia is an 84 year old female admitted with UTI/hypoxia and a history of insulin dependent type 2 diabetes mellitus. Pharmacy has been consulted to assist with glycemic management while inpatient. * Fasting BSG elevated, received approximately 25% of home basal dose for the past 5 days which is contributing to elevated BSGs, will aim for at least 50% today up to 75% of home dose if BSGs remain elevated. * Carbohydrate ratio tightened significantly to a weight based stress of 3, will keep correction factor and goal range looser to prevent hypoglycemia. PLAN FOR INPATIENT GLYCEMIC CONTROL: * Hold outpatient oral diabetes medications * Basal insulin * Lantus 10 units SQ HS if BSG is greater than 160mg/dL * Lantus 25 units SQ daily * Bolus insulin * NovoLog per scale ACHS or Q6hrs while NPO * Goal Range: Low 120 mg/dL - High 160 mg/dL * Correction Factor: 30 mg/dL/unit * Nutritional / Prandial insulin per carb ratio of 1 unit per 7 grams CHO consumed
--- NOTE | 2024-12-17 15:58 | Discharge Summary ---
Discharge Summary Date of Service December 17, 2024 Principal Dx & Hospital Course #1 = Principal Diagnosis (1) Urinary tract infection: Unclear if patient suffered from acute UTI during this current hospitalization (12/10/2024 - 12/17/2024) at [facility] as NO urine culture was drawn during this current hospitalization (12/10/2024 - 12/17/2024) (2) Acute alteration in mental status: Acute alteration in mental status RESOLVED. Patient was diagnosed with at least 10 episodes of desaturation to less than 88% at night (12/16/2024), consistent with a presumed diagnosis of obstructive sleep apnea, and which probably contributed to patient's daytime somnolence, which was diagnosed as acute alteration in mental status during this current hospitalization (12/10/2024 - 12/17/2024) at [facility]. Patient was subsequently discharged back to her home on 12/17/2024 with a prescription for 2 liters/minute O2 via nasal cannula at night time only. (3) Diarrhea: RESOLVED with patient reporting formed bowel movement on discharge date 12/17/2024. (4) Hypomagnesemia: cf., Mg 1.6 mg/dL (12/16/2024, 6:52am). cf., Mg 1.9 mg/dL (12/17/2024, 9:37am). Acute hypomagnesemia RESOLVED with hydration utilizing Plasma-Lyte A Ph 7.4 (which contains magnesium chloride 3meq/liter) @ 80 mL/hr (12/16/2024, 8:00am through 12/17/2024, 3:45pm). Ann Carpenter is a 84 yo woman with PMH of recurrent UTI, urinary inc ontinence, multiples strokes, CAD with stent, insulin dependent diabetes, chronic low back pain. neuropathy. she has had urinary incontinence for 3-4 years. she's has had multiple admission for recurrent UTI, but still unable to see urologist. in addition, she's have worsening diarrhea for several weeks. she has gallbladder surgery in the 1983 and been having diarrhea since. on 12/10/2024, her daughter in law, Katya ([phone]), noticed AMS, dysuria, and brought her to our hospital for evaluation. when she's was sleeping in the ED, her pulse oximetry desaturate into the 80s and started supplemental oxygen. she will be admitted for management of UTI, septic encephalopathy. diarrhea and monitor for electrolyte I suspect she has undiagnosed sleep apnea, partially contribute to has daytime somnolence, her CT head is negative for bleeding, she's denied using any narcotic #Persistent hypoxia - suspect underlying sleep apnea - weaned to RA but required 2L on 2-step - rpt CXR (12/15) showing some mild CHF - despite low dose diuretics, pt's hypoxia did not improve, thus suspect likely due to kyphosis as well as shallow breathing - pt will need long-term supplemental oxygen - pt would benefit from outpatient sleep study as well #Mild CINDI - no further diuresis - hold Lisinopril at this time - if not worsening, ok to d/c with outpatient Cr check - CINDI was NOT present during this current hospitalization (12/10/2024 - 12/17/2024) as creatinine levels remained normal (cf., admission creatinine 0.92 mg/dL, 12/10/2024, 1:40pm; discharge creatinine 0.92 mg/dL, 12/17/2024, 9:37am), save for one test (e.g., creatinine 1.45 mg/dL, 12/16/2024, 6:52am), and which has been attributed to laboratory error, rather that representing juni [place] CINDI. #acute recurrent UTI - completed course of treatment - initial UA abnormal but cultures not sent, rpt UA neg, though pt was on abx - in the past, she was growing dos santos-sensitive E. coli - multiple drug allergy; ciprofloxacin, sulfur, flagyl. 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 #hx of CAD s/p stent (done at [facility]) - plavix and lipitor 40mg #Hypertension - she's on metoprolol ER 50mg (cont) and lisinopril 20mg (hold for now, last dose 12/16) - per the patient, she unsure if she's on aldactone 25mg - she is also taking doxazosin 1mg #chronic low back pain, Cymbalta 60mg morning #insulin dependent diabetes, she's on lantus 40 units morning, and then humalog 10 TID - currently on lantus and sliding scale - lantus dose was initially reduced due to lower intake in the setting of encephalopathy - will place glycemic pharmacy consult #Recurrent UTI, she's methenamine , she's on cranberry - she need urology f/u #code status: full code emergency contact: Katya [phone] 12/13: left message for Katya 12/14: left message for Katya 12/15: spoke to pt's DIL Katya 12/16: spoke with Katya, update provided Admission HPI Per Admitting Provider Sofia Carpenter is a 84 yo woman with PMH of recurrent UTI, urinary incontinence, stroke, insulin dependent diabetes, hypertension, neuropathy she's been having diarrhea for several decade and acutely get worse, been having continuous diarrhea for several days in addition, she has had multiple hospital admission for recurrent UTI, was suppose to see urology and appointment won't be there till Feb 2025 on 12/10/2024, her daughter in law noticed change in mental status, somnolence and brought her to our ED for evaluation. she's was found to has UTI, and started on IV antibiotics in addition, when she's was felling asleep, her O2 sat drop into the low 80s, and started with supplemental oxygen for her day time somnolence, patient and daughter in law mention insomnia, frequent night awaken. they never formally test for MUKUND. for her diarrhea, that was started several decades ago when she live in [place]. she stated diarrhea started after the gallbladder surgery she been fairly immobile since her back injury. because of covid pandemic, she did not has opportunity to see neurosurgery she was prescribed cymablta for pain control Discharge Exam Constitutional General: Comfortable, cooperative, coherent. Wide awake and alert. Not confused, lethargic, or obtunded. Patient speaks in complete, fluent, and articulate sentences without pause, interruption, cough, or wheeze. HEENT: NC/AT. EOMI. PERRL. No nystagmus, gaze paresis, anisocoria, miosis, mydriasis, chemosis, hyphema, scleral injection, conjunctivitis, or pterygium. No otorrhea. No rhinorrhea. Neck: Supple, no stridor, bruit, or goiter. Jugular venous pressure 5cm above the sternal angle of Naren, which is typically 5 cm above the right atrium. Lymph: No anterior/posterior cervical lymphadenopathy, supraclavicular/infraclavicular lymphadenopathy, axilla/epitrochlear/inguinal lymphadenopathy. Chest: Symmetric rise and fall with respirations. Non-tender to palpation. Heart: RRR, S1 and S2. No S3 or S4 summation gallop. No tripartite friction rub. Grade II/ early systolic murmur @ LLSB without radiation to the carotid s, axilla, or back, and which remains invariant in regards to the respiratory cycle. Lungs: Clear to auscultation and percussion. No audible expiratory wheeze, egophony, pectoriloquy, increase in tactile fremitus, or flatness/dullness to percussion at the bases. Abd: Soft, non-tender, non-distended. Bowel sounds auscultated in all 4 quadrants. No rebound, guarding, Altman's sign, or organomegaly. Ext: No clubbing, cyanosis, or edema. 2+ pedal pulses bilaterally. Skin: No decubitus ulcer, exanthem, or enanthem. Neuro: No tremors, tics, or myoclonus. DTR+. Urology: No gomez catheter. No urethral discharge. Discharge Plan Discharge Items Patient Disposition: Home - Self-Care Reason For Visit: AMS, RECURRENT UTI Discharge Diagnosis: 1. Obstructive sleep apnea with daytime somnolence, requiring 2 liters/minute O2 via nasal cannula at nighttime only (to mitigate nocturnal desaturations to less than 88% on room air, which were noted 10 times on 12/16/2024 pm overnight sleep study), on hospital discharge back to her home on 12/17/2024. Condition on Discharge: Fair Activity: Resume your previous activity Lifting: Gradually increase as tolerated Bathing: No limitations Exercise/Sports: Gradually increase as tolerated Weightbearing: Full weightbearing Non-emergency contact: Primary Care Provider Call non-emergency contact if: you have any medication questions Follow-up/Referrals: Markus Castillo MD [Primary Care Provider] - 12/22/24 10:30 am Diet: Carb Consistent or DM2 and Heart Healthy Addtl Attending Provider Instructions: See your PCP Dr. Markus Castillo within 5-7 days of hospital discharge. Pending Studies at Discharge: No Stand-Alone Forms: My [facility] [employer] [facility], Smoking Cessation Medications and DC Order Prescriptions: Continued (DME) blood-glucose meter [FarmivoreTouch Verio Reflect Meter] Misc See Rx Instructions .Route Qty: 1 0RF Rx Instructions: As directed (DME) lancets [OneTouch Delica Plus Lancet] 33 gauge misc See Rx Instructions .ROUTE .MEDSUPPLY Qty: 400 3RF Rx Instructions: use to test 4 times daily atorvastatin [Lipitor] 40 mg tablet 40 mg PO HS Qty: 90 3RF methenamine hippurate 1 gram tablet 1 g PO BID Qty: 180 5RF (DME) pen needle, diabetic 32 gauge x 5/32" needle See Rx Instructions .ROUTE .MEDSUPPLY Qty: 400 3RF Rx Instructions: use 4 per day with insulin injections duloxetine 60 mg capsule,delayed release(DR/EC) 60 mg PO DAILY Qty: 30 5RF loperamide [Imodium A-D] 2 mg tablet 2 mg PO Q8 PRN (Reason: Diarrhea) Qty: 90 0RF levothyroxine 25 mcg capsule 25 mcg PO DAILY Qty: 30 2RF benzonatate 100 mg capsule 100 mg PO TID PRN (Reason: Cough) cranberry 500 mg capsule 500 mg PO QAM hydroxyzine HCl 10 mg tablet 10 mg PO BID metoprolol succinate 50 mg tablet extended release 24 hr 50 mg PO Q12 triamcinolone acetonide 0.1 % cream 1 applic topical BID Qty: 30 1RF Rx Instructions: apply to affected areas for itching...use with ketoconazole and barrier cream (DME) OneTouch Verio test strips Strip See Rx Instructions .ROUTE .MEDSUPPLY Qty: 300 3RF Rx Instructions: test 4 times daily cholecalciferol (vitamin D3) 50 mcg (2,000 unit) capsule 50 mcg PO DAILY ondansetron HCl 4 mg tablet 4 mg PO Q4 PRN (Reason: Nausea And Vomiting) PreserVision AREDS-2 250-90-40-1 mg Capsule 1 tab PO BID clopidogrel [Plavix] 75 mg tablet 75 mg PO QAM lidocaine 5 % adhesive patch,medicated 1 patch topical DAILY Rx Instructions: apply to lower back 1 time a day for pain for up to 12 hours spironolactone [Aldactone] 25 mg tablet 12.5 mg PO QAM doxazosin 1 mg tablet 1 mg PO QAM Gemtesa 75 mg tablet 75 mg PO QAM insulin glargine U-300 conc [Toujeo Max U-300 SoloStar] 300 unit/mL (3 mL) i nsulin pen 40 unit subcut QAM Probiotic Digestive Health 30 billion cell Capsule 1 cap PO DAILY multivitamin with minerals Tablet 1 tab PO DAILY lisinopril 20 mg tablet 40 mg PO QAM insulin lispro [Humalog KwikPen Insulin] 100 unit/mL insulin pen 6 unit subcut TIDM ketoconazole 2 % cream 1 applic topical BID PRN (Reason: Itching) Discharge Orders: Discharge Order (Routine); Ordered 12/18/24 Ordered By: Wilner Mays Admission Data Admit Date/Time: 12/10/24 17:28 Attending Provider: Wilner Mays Admit Provider: Luna Gomez Primary Care Provider: Markus Castillo V. Other Providers: Luna Gomez; Kyaw Last [facility] Hospital Stay Data Consultations 12/10/24 17:01 ED Decision to Admit Stat Diagnostic Imagining Performed 12/10/24 14:01 CT abd pelvis IV con only Stat CT head/brain wo con Stat 12/13/24 01:10 US venous doppler LE RT Urgent Discharge Instructions Given to Patient (Per Discharging Provider) See your PCP Dr. Markus Castillo within 5-7 days of hospital discharge. Total Time Total Time Spent Total Time Spent (In Minutes): 35 minutes. Of this time period, 19 minutes were spent in coordinating patient's discharge. Coding Level of Care Code 94715 INP/OBS DISCH >30 MIN Diagnoses Urinary tract infection N39.0 Acute alteration in mental status R41.82 Diarrhea R19.7 Hypomagnesemia E83.42
[2024-12-17] MEDS: PLASMA-LYTE A 1,000 ML IV SCH (16:12)
[2024-12-17 17:33] VITALS: RESP 18
[2024-12-18 07:45] VITALS: PULSE 60; TEMP 97.9; O2SAT 93
[2024-12-18 12:44] VITALS: BP 99/60
--- NOTE | 2024-12-18 13:07 | Discharge Summary ---
Discharge Summary Date of Service December 18, 2024 Principal Dx & Hospital Course #1 = Principal Diagnosis (1) Urinary tract infection: Unclear if patient suffered from acute UTI during this current hospitalization (12/10/2024 - 12/17/2024) at [facility] as NO urine culture was drawn during this current hospitalization (12/10/2024 - 12/17/2024) (2) Acute alteration in mental status: Acute alteration in mental status has RESOLVED completely as of 12/17/2024. Patient was diagnosed with at least 10 episodes of desaturation to less than 88% at night (12/16/2024), consistent with a presumed diagnosis of obstructive sleep apnea, and which probably contributed to this patient's daytime somnolence, which was diagnosed as an acute alteration in mental status during this current hospitalization (12/10/2024 - 12/17/2024) at [facility]. Patient subsequently underwent 2 step ambulation testing on 12/17/2024, and was found to desaturate to less than 88% when patient ambulated in the hallways of [facility] on 12/17/2024 with Respiratory Therapist. Patient subsequently was discharged back to her home on 12/18/2024 with a prescription for 2 liters/minute O2 via nasal cannula at night time and 2 liters/minute O2 via nasal cannula with exertion. (3) Diarrhea: Acute noroviral infection (as noted on 12/12/2024, 2:05pm Norovirus GI/GII PCR testing) RESOLVED with patient reporting formed bowel movement on 12/17/2024 and again on discharge date 12/18/2024. (4) Hypomagnesemia: cf., Mg 1.6 mg/dL (12/16/2024, 6:52am). cf., Mg 1.9 mg/dL (12/17/2024, 9:37am). Acute hypomagnesemia RESOLVED with hydration utilizing Plasma-Lyte A Ph 7.4 ( which contains magnesium chloride 3meq/liter) @ 80 mL/hr (12/16/2024, 8:00am through 12/17/2024, 3:45pm). Of note, etiology of acute hypomagnesemia was most probably due to acute noroviral infection (as noted on 12/12/2024, 2:05pm Norovirus GI/GII PCR testing) causing watery, non-bloody, non-oily diarrhea in this patient, and which has RESOLVED with patient reporting formed bowel movement on 12/17/2024 and again on discharge date 12/18/2024. 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 On admission date, 12/10/2024, patient's [id number], Ms. Katya Andrade ([phone]), noticed that the patient suffered from AMS and dysuria, and consequently, Ms. Andrade brought patient to [facility] ER for further evaluation of her AMS and dysuria. Patient was noted to be somnolent/sleeping in [facility] ER, and her O2 saturation declined into the 80s% range, and hence, patient started to receive supplemental oxygen, 2 liters/minute O2 via nasal cannula. Patient was subsequently admitted to the inpatient hospitalist service @ [facility] on 12/10/2024 with the following diagnoses: 1. Acute metabolic encephalopathy due to presumed, recurrent UTI. 2. Chronic watery, non-bloody, non-oily diarrhea, of unclear etiology, and persistent since 1983, when patient underwent gallbladder surgery. 3. Clinically suspected, but formally undiagnosed, obstructive sleep apnea, partially contributing to patient's daytime somnolence. #Persistent hypoxia - suspect underlying sleep apnea - weaned to RA but required 2L on 2-step - rpt CXR (12/15) showing some mild CHF - despite low dose diuretics, pt's hypoxia did not improve, thus suspect likely due to kyphosis as well as shallow breathing - pt will need long-term supplemental oxygen - pt would benefit from outpatient sleep study as well #Mild CINDI - no further diuresis - hold Lisinopril at this time - if not worsening, ok to d/c with outpatient Cr check - CINDI was NOT present during this current hospitalization (12/10/2024 - 12/17/2024) as creatinine levels remained normal (cf., admission creatinine 0.92 mg/dL, 12/10/2024, 1:40pm; discharge creatinine 0.92 mg/dL, 12/17/2024, 9:37am), save for one test (e.g., creatinine 1.45 mg/dL, 12/16/2024, 6:52am), and which has been attributed to laboratory error, rather that representing juni alexandria CINDI. #Acute recurrent UTI - completed course of treatment - initial UA abnormal but cultures not sent, rpt UA neg, though pt was on abx - in the past, she was growing dos santos-sensitive E. coli - multiple drug allergy; ciprofloxacin, sulfur, flagyl. 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 #hx of CAD s/p stent (done at [facility]) - plavix and lipitor 40mg #Hypertension - she's on metoprolol ER 50mg (cont) and lisinopril 20mg (hold for now, last dose 10/14) - per the patient, she unsure if she's on aldactone 25mg - she is also taking doxazosin 1mg #chronic low back pain, Cymbalta 60mg morning #insulin dependent diabetes, she's on lantus 40 units morning, and then humalog 10 TID - currently on lantus and sliding scale - lantus dose was initially reduced due to lower intake in the setting of encephalopathy - will place glycemic pharmacy consult #Recurrent UTI, she's methenamine , she's on cranberry - she need urology f/u #code status: full code emergency contact: Katya [phone] 12/13: left message for Katya 12/14: left message for Katya 12/15: spoke to pt's DIL Katya 12/16: spoke with Katya, update provided Admission HPI Per Admitting Provider Sofia Carpenter is a 84 yo woman with PMH of recurrent UTI, urinary incontinence, stroke, insulin dependent diabetes, hypertension, neuropathy she's been having diarrhea for several decade and acutely get worse, been having continuous diarrhea for several days in addition, she has had multiple hospital admission for recurrent UTI, was suppose to see urology and appointment won't be there till Feb 2025 on 12/10/2024, her daughter in law noticed change in mental status, somnolence and brought her to our ED for evaluation. she's was found to has UTI, and started on IV antibiotics in addition, when she's was felling asleep, her O2 sat drop into the low 80s, and started with supplemental oxygen for her day time somnolence, patient and daughter in law mention insomnia, frequent night awaken. they never formally test for MUKUND. for her diarrhea, that was started several decades ago when she live in [place]. she stated diarrhea started after the gallbladder surgery she been fairly immobile since her back injury. because of covid pandemic, she did not has opportunity to see neurosurgery she was prescribed cymablta for pain control Discharge Exam Constitutional General: Comfortable, cooperative, coherent. Wide awake and alert. Not confused, lethargic, or obtunded. Patient speaks in complete, fluent, and bailey culate sentences without pause, interruption, cough, or wheeze. HEENT: NC/AT. EOMI. PERRL. No nystagmus, gaze paresis, anisocoria, miosis, mydriasis, chemosis, hyphema, scleral injection, conjunctivitis, or pterygium. No otorrhea. No rhinorrhea. Neck: Supple, no stridor, bruit, or goiter. Jugular venous pressure 5cm above the sternal angle of Naren, which is typically 5 cm above the right atrium. Lymph: No anterior/posterior cervical lymphadenopathy, supraclavicular/infraclavicular lymphadenopathy, axilla/epitrochlear/inguinal lymphadenopathy. Chest: Symmetric rise and fall with respirations. Non-tender to palpation. Heart: RRR, S1 and S2. No S3 or S4 summation gallop. No tripartite friction rub. Grade II/ early systolic murmur @ LLSB without radiation to the carotids, axilla, or back, and which remains invariant in regards to the respiratory cycle. Lungs: Clear to auscultation and percussion. No audible expiratory wheeze, egophony, pectoriloquy, increase in tactile fremitus, or flatness/dullness to percussion at the bases. Abd: Soft, non-tender, non-distended. Bowel sounds auscultated in all 4 quadrants. No rebound, guarding, Altman's sign, or organomegaly. Ext: No clubbing, cyanosis, or edema. 2+ pedal pulses bilaterally. Skin: No decubitus ulcer, exanthem, or enanthem. Neuro: No tremors, tics, or myoclonus. DTR+. 4/5 motor strength in LUE, proximally and distally. 5/5 motor strength in LLE, RLE, RUE, proximally and distally. Urology: No gomez catheter. No urethral discharge. Discharge Plan Discharge Items Patient Disposition: Home - Self-Care Reason For Visit: AMS, RECURRENT UTI Discharge Diagnosis: 1. Obstructive sleep apnea with daytime somnolence, requiring 2 liters/minute O2 via nasal cannula at nighttime only (to mitigate nocturnal desaturations to less than 88% on room air, which were noted 10 times on 12/16/2024 pm overnight sleep study), on hospital discharge back to her home on 12/17/2024. Condition on Discharge: Fair Activity: Resume your previous activity Lifting: Gradually increase as tolerated Bathing: No limitations Exercise/Sports: Gradually increase as tolerated Weightbearing: Full weightbearing Non-emergency contact: Primary Care Provider Call non-emergency contact if: you have any medication questions Follow-up/Referrals: Markus Castillo MD [Primary Care Provider] - 12/22/24 10:30 am Diet: Carb Consistent or DM2 and Heart Healthy Addtl Attending Provider Instructions: See your PCP Dr. Markus Castillo within 5-7 days of hospital discharge. Pending Studies at Discharge: No Stand-Alone Forms: My [facility] [employer], Smoking Cessation Medications and DC Order Prescriptions: Continued (DME) blood-glucose meter [OneTouch Verio Reflect Meter] Misc See Rx Instructions .Route Qty: 1 0RF Rx Instructions: As directed (DME) lancets [OneTouch Delica Plus Lancet] 33 gauge misc See Rx Instructions .ROUTE .MEDSUPPLY Qty: 400 3RF Rx Instructions: use to test 4 times daily atorvastatin [Lipitor] 40 mg tablet 40 mg PO HS Qty: 90 3RF methenamine hippurate 1 gram tablet 1 g PO BID Qty: 180 5RF (DME) pen needle, diabetic 32 gauge x 5/32" needle See Rx Instructions .ROUTE .MEDSUPPLY Qty: 400 3RF Rx Instructions: use 4 per day with insulin injections duloxetine 60 mg capsule,delayed release(DR/EC) 60 mg PO DAILY Qty: 30 5RF loperamide [Imodium A-D] 2 mg tablet 2 mg PO Q8 PRN (Reason: Diarrhea) Qty: 90 0RF levothyroxine 25 mcg capsule 25 mcg PO DAILY Qty: 30 2RF benzonatate 100 mg capsule 100 mg PO TID PRN (Reason: Cough) cranberry 500 mg capsule 500 mg PO QAM hydroxyzine HCl 10 mg tablet 10 mg PO BID metoprolol succinate 50 mg tablet extended release 24 hr 50 mg PO Q12 triamcinolone acetonide 0.1 % cream 1 applic topical BID Qty: 30 1RF Rx Instructions: apply to affected areas for itching...use with ketoconazole and barrier cream (DME) OneTouch Verio test strips Strip See Rx Instructions .ROUTE .MEDSUPPLY Qty: 300 3RF Rx Instructions: test 4 times daily cholecalciferol (vitamin D3) 50 mcg (2,000 unit) capsule 50 mcg PO DAILY ondansetron HCl 4 mg tablet 4 mg PO Q4 PRN (Reason: Nausea And Vomiting) PreserVision AREDS-2 250-90-40-1 mg Capsule 1 tab PO BID clopidogrel [Plavix] 75 mg tablet 75 mg PO QAM lidocaine 5 % adhesive patch,medicated 1 patch topical DAILY Rx Instructions: apply to lower back 1 time a day for pain for up to 12 hours spironolactone [Aldactone] 25 mg tablet 12.5 mg PO QAM doxazosin 1 mg tablet 1 mg PO QAM Gemtesa 75 mg tablet 75 mg PO QAM insulin glargine U-300 conc [Toujeo Max U-300 SoloStar] 300 unit/mL (3 mL) insulin pen 40 unit subcut QAM Probiotic Digestive Health 30 billion cell Capsule 1 cap PO DAILY multivitamin with minerals Tablet 1 tab PO DAILY lisinopril 20 mg tablet 40 mg PO QAM insulin lispro [Humalog KwikPen Insulin] 100 unit/mL insulin pen 6 unit subcut TIDM ketoconazole 2 % cream 1 applic topical BID PRN (Reason: Itching) Discharge Orders: Discharge Order (Routine); Ordered 12/18/24 Ordered By: Wilner Mays Admission Data Admit Date/Time: 12/10/24 17:28 Attending Provider: Wilner Mays Admit Provider: Luna Gomez Primary Care Provider: Markus Castillo V. Other Providers: Luna Gomez; Kyaw Last [facility] Other Interventions: Discharge Summary Assessment (RN) Last Done: 12/18/24 12:44 Hospital Stay Data Consultations 12/10/24 17:01 ED Decision to Admit Stat Diagnostic Imagining Performed 12/10/24 14:01 CT abd pelvis IV con only Stat CT head/brain wo con Stat 12/13/24 01:10 US venous doppler LE RT Urgent Pending Results Patient Have Any Pending Studies at Discharge: No Discharge Instructions Given to Patient (Per Discharging Provider) See your PCP Dr. Markus Castillo within 5-7 days of hospital discharge. Total Time Total Time Spent Total Time Spent (In Minutes): 35 minutes. Of this time period, 19 minutes were spent in coordinating patient's discharge. Coding Level of Care Code 17770 INP/OBS DISCH >30 MIN Diagnoses Urinary tract infection N39.0 Acute alteration in mental status R41.82 Diarrhea R19.7 Hypomagnesemia E83.42
== END 2024-12-18 13:45 | disposition home or self-care (01) | DRG 689 ==
LOC: ED 13:29 → SUATTDRO 17:28 → EDINP 17:28 → 2W 18:31

== ENCOUNTER 2025-01-27 15:13 | Inpatient (IN) ==
[2025-01-27] MEDS: SODIUM CHLORIDE 0.9% 1,000 ML IV ONE (15:36)
--- NOTE | 2025-01-27 15:48 | Emergency Department Note ---
History of Present Illness General Chief complaint: Hyperglycemia Stated complaint: HIGH BLOOD SUGAR Time Seen by Provider: 01/27/25 15:20 Source: patient and family History of Present Illness Patient is an 84-year-old female with history of insulin-dependent diabetes, recurrent UTIs, diabetic neuropathy who presents today for consistently elevated blood glucose levels. Her ocqexnjt-xt-wce was visiting her at her group home facility when she was told that her blood glucose was over 400 today. She also had difficulty to walking today due to generalized weakness. Patient has been compliant with her medication however her wouciclf-ea-mwt is worried that her diet has not been appropriate for her underlying diabetes. Patient is also currently being worked up for recurrent UTI however she denies any urinary symptoms at this time. No recent fevers, chills, cough, chest pain, shortness of breath, abdominal pain, nausea, vomiting. No change in bowel or bladder habits reported. Patient is on Humalog as well as glargine for her diabetes. Home Medications Medication Instructions Recorded Confirmed Type OneTouch Verio Reflect Meter #1 ea 08/05/21 01/27/25 Rx (blood-glucose meter) OneTouch Delica Plus Lancet 33 #400 ea 07/28/22 01/27/25 Rx gauge (lancets) vit C 250 mg-vit E 90 mg-zinc 40 1 tab PO BID 08/17/22 01/27/25 History mg-copper 1 [id number] capsule (PreserVision AREDS-2) ondansetron HCl 4 mg tablet 4 mg PO Q4 PRN Nausea And Vomiting 05/20/24 01/27/25 History OneTouch Verio test strips (blood #300 ea 05/29/24 01/27/25 Rx sugar diagnostic) triamcinolone acetonide 0.1 % 1 applic topical BID #30 grams 05/29/24 01/27/25 Rx topical cream atorvastatin 40 mg tablet (Lipitor) 40 mg PO HS #90 tabs 07/17/24 01/27/25 Rx hydroxyzine HCl 10 mg tablet 10 mg PO BID 08/04/24 01/27/25 History L.acid,par,plant,rham-B.anim,bif,brev,inf,long 1 cap PO DAILY 09/17/24 01/27/25 History 30 billion cell capsule (Probiotic ReInnervate Health) clopidogrel 75 mg tablet (Plavix) 75 mg PO QAM 09/17/24 01/27/25 History doxazosin 1 mg tablet 1 mg PO QAM 09/17/24 01/27/25 History insulin glargine U-300 conc 300 40 unit subcut QAM 09/17/24 01/27/25 History unit/mL (3 mL) subcutaneous pen (Toujeo Max U-300 SoloStar) multivitamin with minerals 1 tab PO DAILY 09/17/24 01/27/25 History spironolactone 25 mg tablet 12.5 mg PO QAM 09/17/24 01/27/25 History (Aldactone) vibegron 75 mg tablet (Gemtesa) 75 mg PO QAM 09/17/24 01/27/25 History cholecalciferol (vitamin D3) 50 50 mcg PO DAILY 10/06/24 01/27/25 History mcg (2,000 unit) capsule methenamine hippurate 1 gram tablet 1 g PO BID #180 tabs 10/14/24 01/27/25 Rx metoprolol succinate 50 mg 50 mg PO Q12 10/30/24 01/27/25 History tablet,extended release 24 hr pen needle, diabetic 32 gauge x #400 ea 11/12/24 01/27/25 Rx " duloxetine 60 mg capsule,delayed 60 mg PO DAILY #30 caps 11/13/24 01/27/25 Rx release insulin lispro 100 unit/mL 6 unit subcut TIDM 12/01/24 01/27/25 History subcutaneous pen (Humalog KwikPen (U-100) Insulin) lisinopril 20 mg tablet 40 mg PO QAM 12/01/24 01/27/25 History loperamide 2 mg tablet (Imodium 2 mg PO Q8 PRN Diarrhea #90 tabs 12/01/24 01/27/25 Rx A-D) ketoconazole 2 % topical cream 1 applic topical BID PRN Itching 12/10/24 01/27/25 History levothyroxine 25 mcg capsule 25 mcg PO DAILY #30 caps 12/25/24 01/27/25 Rx lidocaine 5 % topical patch 1 patch topical DAILY Pain #15 ea 01/07/25 01/27/25 Rx conjugated estrogens 0.625 mg/gram 0.625 mg vaginal DAILY #30 grams 01/08/25 01/27/25 Rx vaginal cream (Premarin) cranberry extract 500 mg capsule 500 mg PO QAM 01/27/25 01/27/25 History (Cranberry Concentrate) Allergies Allergy/AdvReac Type Severity Reaction Status Date / Time ciprofloxacin Allergy Severe "i blew up Verified 01/22/25 13:06 like a balloon" per pt dapsone Allergy Intermediate Rash Verified 01/22/25 13:06 Sulfa (Sulfonamide Allergy Mild Unknown Verified 01/22/25 13:06 Antibiotics) latex Allergy Unknown Unknown Verified 01/22/25 13:06 adhesive AdvReac Unknown Unknown Verified 01/22/25 13:06 metronidazole [From Flagyl] AdvReac Unknown Unknown Verified 01/22/25 13:06 red dye AdvReac Unknown Unknown Verified 01/22/25 13:06 Past Med/Surg History Problem List (Updated 01/27/25 @ 21:45 by Luiz Marti MD) Hyperglycemia (Acute) Encounter for health maintenance examination (Chronic) Anemia Type 2 diabetes mellitus with insulin therapy Incontinence associated dermatitis Recurrent UTI Nocturnal hypoxemia Adrenal nodule Elevated TSH Fall (Acute) Diabetic nephropathy associated with type 2 diabetes mellitus Persistent microalbuminuria associated with type 2 diabetes mellitus Tiredness Hypertension Low back pain Overactive bladder Lumbar contusion (Acute) Nonproliferative diabetic retinopathy Diabetic peripheral neuropathy Stented coronary artery Loss of protective sensation of skin of foot H/O: stroke with residual effects Urine incontinence (Chronic) Age-related cognitive decline (Chronic) Diabetic peripheral neuropathy associated with type 2 diabetes mellitus (Acute) Gait disturbance (Acute) Nephrolithiasis (Acute) Vitamin D deficiency disease (Acute) Medical History (Updated 01/27/25 @ 21:45 by Luiz Marti MD) Neuropathic pain of both feet Recurrent UTI (urinary tract infection) Albuminuria Left leg weakness Dermatitis Abdominal pain, lower Right sided sciatica Pyelonephritis Gait apraxia Vaginal burning Genitourinary syndrome of menopause Pressure ulcer Cystitis Encephalopathy Diarrhea Abdominal pain, acute, left lower quadrant Urinary tract infection Acute alteration in mental status Hypomagnesemia Influenza A Closed compression fracture of lumbar vertebra (~2019) a chronic superior endplate compression fracture deformity of L5 per the MRI from 03/22/24 Hyperlipidemia IBS (irritable bowel syndrome) Spinal stenosis, lumbar region with neurogenic claudication Stroke-like symptom Numbness of left hand Humerus fracture Balance problem Stroke Fall Abnormal thyroid blood test Localized swelling of both lower legs Hypoglycemia Lupus Closed left humeral fracture (07/22/23) from a fall Interstitial lung disease Diabetes mellitus type 2, uncontrolled CAD (coronary artery disease) Hypertension Contact dermatitis Chronic cough Rash Herpes zoster, ocular Contusion of leg, left Gross hematuria Physical deconditioning Expressive aphasia Chronic diarrhea Spinal stenosis of lumbar region Cerebrovascular disease Family history of dementia Neurogenic claudication due to lumbar spinal stenosis Arm DVT (deep venous thromboembolism), acute Mitral regurgitation Hx of renal calculi C. difficile colitis Surgical History History of lithotripsy S/P cardiac catheterization Hx of cholecystectomy Family History Mother Alzheimer disease Hypertension Brother Diabetes Myocardial infarction Father Hypertension Sister Lung cancer Other Family history non-contributory Stroke Denies family history of Ovarian cancer Prostate cancer Breast cancer Colorectal cancer Social History Smoking Status: Never smoker Second Hand Exposure: No; Do You Dip or Chew Tobacco: No; Hx Alcohol Use: No Hx Substance Use: No Preferred Language: Guinean Communication Ability: Effective Visual Impairment: No Limitations Hearing Ability: Normal Microarray Specialist Required: No Beliefs That Will Affect Care: None marital status: / Current Living Situation: Senior Care Current Living Situation Comment: daughter in law helps w/ care current occupational status: retired Feels Safe at Home: Yes Childhood Exposure to Second-Hand Smoke: No Dental Care, Regularly: No Physical Activity Frequency: Does not Exercise Seatbelt Use: always Sunscreen Use: No Assistive Devices: Walker Review of Systems Review of systems negative outside of positive findings mentioned in HPI. Physical Exam Vital Signs Vital Signs - 24 hr 01/27/25 15:15 01/27/25 16:16 01/27/25 16:17 Temperature 36.6 C Temperature Source Skin Pulse Rate 67 58 L Pulse Rate [Right Finger] 58 L Pulse Rhythm [Right Finger] Regular Pulse Strength [Right Finger] Normal Respiratory Rate 16 18 Blood Pressure 126/84 Blood Pressure [Left Arm] 135/72 Blood Pressure Mean 98 Blood Pressure Mean [Left Arm] 93 Blood Pressure Position [Left Arm] Semi-fowlers Pulse Oximetry 97 93 Oxygen Delivery Method Room Air Sepsis Recent Fever Within 48 Hours No Sepsis New/Unexplained Change in Mental Status N/A Sepsis Action Taken by Nursing No Action Required 01/27/25 18:00 01/27/25 20:00 01/27/25 20:10 Temperature Temperature Source Pulse Rate 60 Pulse Rate [Right Finger] 66 58 L Pulse Rhythm [Right Finger] Pulse Strength [Right Finger] Respiratory Rate 18 18 Blood Pressure Blood Pressure [Left Arm] 155/79 H 131/74 Blood Pressure Mean Blood Pressure Mean [Left Arm] 104 93 Blood Pressure Position [Left Arm] Pulse Oximetry 94 94 Oxygen Delivery Method Sepsis Recent Fever Within 48 Hours Sepsis New/Unexplained Change in Mental Status Sepsis Action Taken by Nursing See below Constitutional WD/WN, vitals as above Eyes PERRL, conjunctivae normal, anicteric sclerae Respiratory normal respiratory effort, lungs clear to auscultation Cardiovascular RRR, no murmur, no edema Extremities: + edema non-pitting edema to the lower extremities that is chronic Gastrointestinal (Abdomen) normal bowel sounds, soft, nontender, no hepatosplenomegaly Course Administered Medications Discontinued Medications Sodium Chloride (Nss) 1,000 mls @ 999 mls/hr IV .Q1H1M ONE Stop: 01/27/25 16:26 Last Infusion: 01/27/25 16:37 Dose: Infused Documented By: Admin: 01/27/25 15:36 Dose: 999 mls/hr Documented By: TULIO Magnesium Sulfate/Dextrose (Magnesium Sulfate / D5w) 1 gm in 100 mls @ 100 mls/hr IV NOW STA Stop: 01/27/25 21:26 Last Admin: 01/27/25 21:00 Dose: 100 mls/hr Documented By: arie Insulin Human Regular (Novolin-R Insulin Per Unit Charge) 10 units IV NOW STA Stop: 01/27/25 15:40 Last Admin: 01/27/25 16:02 Dose: 10 units Documented By: arie Co-signed By: TULIO Ioversol (Optiray 320 100ml) 94 ml IV ONCE ONE Stop: 01/27/25 18:44 Last Admin: 01/27/25 18:43 Dose: 94 ml Documented By: DUNCAN Medical Decision Making Differential Diagnosis DDx includes but not limited to: Hyperglycemia, DKA, HHS, metabolic encephalopathy, UTI, infection Medical Records Attestation: I reviewed the patient's medical records. Home Medications Current Medication List: was personally reviewed by Laboratory Data Attestation: I reviewed the patient's lab results. 01/27/25 15:36 01/27/25 15:36 Lab Results 01/27/25 01/27/25 01/27/25 Range/Units 15:18 15:33 15:36 WBC 7.70 (4.8-10.8) K/ul RBC 4.09 L (4.20-5.40) M/uL Hgb 12.3 (12.0-16.0) g/dL Hct 36.7 L (37.0-47.0) % MCV 89.7 (80.0-100.0) fL MCH 30.1 (25.0-34.0) pg MCHC 33.5 (32.0-36.0) g/dL RDW Std Deviation 41.8 (36.4-46.3) fL RDW Coeff of Linda 12.7 (11.5-14.5) % Plt Count 192 (130-400) K/uL MPV 10.3 (9.4-12.4) fL Immature Gran % (Auto) 0.4 % Neut % (Auto) 60.6 % Lymph % (Auto) 27.5 % Miner % (Auto) 9.5 % Eos % (Auto) 1.6 % Baso % (Auto) 0.4 % Neut # (Auto) 4.67 (1.40-6.50) K/uL Lymph # (Auto) 2.12 (1.20-3.40) K/uL [place]er # (Auto) 0.73 H (0.11-0.59) K/uL Eos # (Auto) 0.12 (0.00-0.50) K/uL Baso # (Auto) 0.03 (0.00-0.20) K/uL Immature Gran # (Auto) 0.03 (0.01-0.20) K/uL VBG pH (7.36-7.41) VBG pCO2 (38-50) mmHg VBG pO2 mmHg VBG HCO3 mmol/L VBG O2 Saturation % VBG Base Excess mEq/L Sodium 134 L (136-145) mmol/L Potassium 4.2 (3.5-5.1) mmol/L Chloride 102 (98-107) mmol/L Carbon Dioxide 24 (21-32) mmol/L Anion Gap 8 (3-11) BUN 23 (6-23) mg/dl Creatinine 0.99 (0.6-1.2) mg/dl Est Cr Clr Drug Dosing 38.8 ml/min eGFR 56.23 BUN/Creatinine Ratio 23.2 H (10-20) Glucose 397 H* (70-99(Fasting)) mg/dl POC Glucose 447 H* 409 H* (70-99) mg/dl Estimat Average Glucose 229 mg/dl Hemoglobin A1c 9.6 H (4.5-5.6) % Calcium 9.3 (8.6-10.3) mg/dl Phosphorus 3.0 (2.5-4.9) mg/dl Magnesium 1.6 L (1.7-2.4) mg/dl Total Bilirubin 0.4 (0.2-1.0) mg/dl AST 17 (13-39) U/L ALT 16 (7-52) U/L Alkaline Phosphatase 53 (34-104) U/L Troponin I High Sens 5.8 (0-14) pg/ml B-Natriuretic Peptide (0-100) pg/ml Total Protein 7.6 (6.0-8.3) gm/dl Albumin 4.0 (3.4-5.0) gm/dl Globulin 3.6 (2.5-4.0) gm/dl Albumin/Globulin Ratio 1.1 (0.9-2) Urine Color Urine Appearance (Clear) Urine pH (4.5-7.5) Ur Specific [place] (1.000-1.030) Urine Protein (Negative) Urine Glucose (UA) (Negative) Urine Ketones (Negative) Urine Blood (Negative) Urine Nitrite (Negative) Urine Bilirubin (Negative) Urine Urobilinogen (Negative) Ur Leukocyte Esterase (Negative) Urine WBC (Auto) (0-5) /hpf Urine RBC (Auto) (0-2) /hpf U Hyaline Cast (Auto) (0-2) /lpf U Epithel Cells (Auto) (0-2) /hpf Urine Bacteria (Auto) (None Seen) Urine Comment Adenovirus (PCR) (NotDetected) B. pertussis DNA (PCR) (NotDetected) B.parapertussis DNA PCR (NotDetected) C. pneumoniae DNA (PCR) (NotDetected) Coronavirus OC43 (PCR) (NotDetected) Coronavirus HKU1 (PCR) (NotDetected) Coronavirus 229E (PCR) (NotDetected) SARS-CoV-2 (PCR) (NotDetected) Coronavirus NL63 (PCR) (NotDetected) Human Metapneumovir PCR (NotDetected) Influenza Type A (PCR) (NotDetected) Influenza Type B (PCR) (NotDetected) M. pneumoniae (PCR) (NotDetected) Parainfluenza 1 (PCR) (NotDetected) Parainfluenza 2 (PCR) (NotDetected) Parainfluenza 3 (PCR) (NotDetected) Parainfluenza 4 (PCR) (NotDetected) RSV (PCR) (NotDetected) Entero/Rhino (PCR) (NotDetected) 01/27/25 01/27/25 01/27/25 Range/Units 16:35 16:58 17:30 WBC (4.8-10.8) K/ul RBC (4.20-5.40) M/uL Hgb (12.0-16.0) g/dL Hct (37.0-47.0) % MCV (80.0-100.0) fL MCH (25.0-34.0) pg MCHC (32.0-36.0) g/dL RDW Std Deviation (36.4-46.3) fL RDW Coeff of Linda (11.5-14.5) % Plt Count (130-400) K/uL MPV (9.4-12.4) fL Immature Gran % (Auto) % Neut % (Auto) % Lymph % (Auto) % [place] % (Auto) % Eos % (Auto) % Baso % (Auto) % Neut # (Auto) (1.40-6.50) K/uL Lymph # (Auto) (1.20-3.40) K/uL [place] # (Auto) (0.11-0.59) K/uL Eos # (Auto) (0.00-0.50) K/uL Baso # (Auto) (0.00-0.20) K/uL Immature Gran # (Auto) (0.01-0.20) K/uL VBG pH 7.26 L (7.36-7.41) VBG pCO2 52 H (38-50) mmHg VBG pO2 59 mmHg VBG HCO3 23 mmol/L VBG O2 Saturation 92.4 % VBG Base Excess -4.3 mEq/L Sodium (136-145) mmol/L Potassium (3.5-5.1) mmol/L Chloride (98-107) mmol/L Carbon Dioxide (21-32) mmol/L Anion Gap (3-11) BUN (6-23) mg/dl Creatinine (0.6-1.2) mg/dl Est Cr Clr Drug Dosing ml/min eGFR BUN/Creatinine Ratio (10-20) Glucose (70-99(Fasting)) mg/dl POC Glucose 263 H 158 H (70-99) mg/dl Estimat Average Glucose mg/dl Hemoglobin A1c (4.5-5.6) % Calcium (8.6-10.3) mg/dl Phosphorus (2.5-4.9) mg/dl Magnesium (1.7-2.4) mg/dl Total Bilirubin (0.2-1.0) mg/dl AST (13-39) U/L ALT (7-52) U/L Alkaline Phosphatase (34-104) U/L Troponin I High Sens (0-14) pg/ml B-Natriuretic Peptide (0-100) pg/ml Total Protein (6.0-8.3) gm/dl Albumin (3.4-5.0) gm/dl Globulin (2.5-4.0) gm/dl Albumin/Globulin Ratio (0.9-2) Urine Color Urine Appearance (Clear) Urine pH (4.5-7.5) Ur Specific [place] (1.000-1.030) Urine Protein (Negative) Urine Glucose (UA) (Negative) Urine Ketones (Negative) Urine Blood (Negative) Urine Nitrite (Negative) Urine Bilirubin (Negative) Urine Urobilinogen (Negative) Ur Leukocyte Esterase (Negative) Urine WBC (Auto) (0-5) /hpf Urine RBC (Auto) (0-2) /hpf U Hyaline Cast (Auto) (0-2) /lpf U Epithel Cells (Auto) (0-2) /hpf Urine Bacteria (Auto) (None Seen) Urine Comment Adenovirus (PCR) (NotDetected) B. pertussis DNA (PCR) (NotDetected) B.parapertussis DNA PCR (NotDetected) C. pneumoniae DNA (PCR) (NotDetected) Coronavirus OC43 (PCR) (NotDetected) Coronavirus HKU1 (PCR) (NotDetected) Coronavirus 229E (PCR) (NotDetected) SARS-CoV-2 (PCR) (NotDetected) Coronavirus NL63 (PCR) (NotDetected) Human Metapneumovir PCR (NotDetected) Influenza Type A (PCR) (NotDetected) Influenza Type B (PCR) (NotDetected) M. pneumoniae (PCR) (NotDetected) Parainfluenza 1 (PCR) (NotDetected) Parainfluenza 2 (PCR) (NotDetected) Parainfluenza 3 (PCR) (NotDetected) Parainfluenza 4 (PCR) (NotDetected) RSV (PCR) (NotDetected) Entero/Rhino (PCR) (NotDetected) 01/27/25 01/27/25 01/27/25 Range/Units 17:40 19:53 20:08 WBC (4.8-10.8) K/ul RBC (4.20-5.40) M/uL Hgb (12.0-16.0) g/dL Hct (37.0-47.0) % MCV (80.0-100.0) fL MCH (25.0-34.0) pg MCHC (32.0-36.0) g/dL RDW Std Deviation (36.4-46.3) fL RDW Coeff of Linda (11.5-14.5) % Plt Count (130-400) K/uL MPV (9.4-12.4) fL Immature Gran % (Auto) % Neut % (Auto) % Lymph % (Auto) % [place] % (Auto) % Eos % (Auto) % Baso % (Auto) % Neut # (Auto) (1.40-6.50) K/uL Lymph # (Auto) (1.20-3.40) K/uL [place] # (Auto) (0.11-0.59) K/uL Eos # (Auto) (0.00-0.50) K/uL Baso # (Auto) (0.00-0.20) K/uL Immature Gran # (Auto) (0.01-0.20) K/uL VBG pH (7.36-7.41) VBG pCO2 (38-50) mmHg VBG pO2 mmHg VBG HCO3 mmol/L VBG O2 Saturation % VBG Base Excess mEq/L Sodium (136-145) mmol/L Potassium (3.5-5.1) mmol/L Chloride (98-107) mmol/L Carbon Dioxide (21-32) mmol/L Anion Gap (3-11) BUN (6-23) mg/dl Creatinine (0.6-1.2) mg/dl Est Cr Clr Drug Dosing ml/min eGFR BUN/Creatinine Ratio (10-20) Glucose (70-99(Fasting)) mg/dl POC Glucose (70-99) mg/dl Estimat Average Glucose mg/dl Hemoglobin A1c (4.5-5.6) % Calcium (8.6-10.3) mg/dl Phosphorus (2.5-4.9) mg/dl Magnesium (1.7-2.4) mg/dl Total Bilirubin (0.2-1.0) mg/dl AST (13-39) U/L ALT (7-52) U/L Alkaline Phosphatase (34-104) U/L Troponin I High Sens (0-14) pg/ml B-Natriuretic Peptide 52 (0-100) pg/ml Total Protein (6.0-8.3) gm/dl Albumin (3.4-5.0) gm/dl Globulin (2.5-4.0) gm/dl Albumin/Globulin Ratio (0.9-2) Urine Color Yellow Urine Appearance Cloudy A (Clear) Urine pH 5.5 (4.5-7.5) Ur Specific [place] 1.017 (1.000-1.030) Urine Protein Negative (Negative) Urine Glucose (UA) 1+ H (Negative) Urine Ketones Negative (Negative) Urine Blood Negative (Negative) Urine Nitrite Negative (Negative) Urine Bilirubin Negative (Negative) Urine Urobilinogen Negative (Negative) Ur Leukocyte Esterase 1+ H (Negative) Urine WBC (Auto) 6-10 H (0-5) /hpf Urine RBC (Auto) 3-5 H (0-2) /hpf U Hyaline Cast (Auto) 0-2 (0-2) /lpf U Epithel Cells (Auto) 11-20 H (0-2) /hpf Urine Bacteria (Auto) None Seen (None Seen) Urine Comment Adenovirus (PCR) Not Detected (NotDetected) B. pertussis DNA (PCR) Not Detected (NotDetected) B.parapertussis DNA PCR Not Detected (NotDetected) C. pneumoniae DNA (PCR) Not Detected (NotDetected) Coronavirus OC43 (PCR) Not Detected (NotDetected) Coronavirus HKU1 (PCR) Not Detected (NotDetected) Coronavirus 229E (PCR) Not Detected (NotDetected) SARS-CoV-2 (PCR) Not Detected (NotDetected) Coronavirus NL63 (PCR) Not Detected (NotDetected) Human Metapneumovir PCR Not Detected (NotDetected) Influenza Type A (PCR) Not Detected (NotDetected) Influenza Type B (PCR) Not Detected (NotDetected) M. pneumoniae (PCR) Not Detected (NotDetected) Parainfluenza 1 (PCR) Not Detected (NotDetected) Parainfluenza 2 (PCR) Not Detected (NotDetected) Parainfluenza 3 (PCR) Not Detected (NotDetected) Parainfluenza 4 (PCR) Not Detected (NotDetected) RSV (PCR) Not Detected (NotDetected) Entero/Rhino (PCR) Not Detected (NotDetected) Imaging Data Radiologist's Impression: Chest X-Ray 01/27/25 17:36 Technique: PA and lateral views of the chest were obtained Findings: There is multifocal interstitial prominence that may be due to pulmonary fibrosis. The heart size is within normal limits. No pleural effusion or pneumothorax is seen. No fracture is noted. No foreign body is seen Impression: Multifocal interstitial prominence that may be due to pulmonary fibrosis Electronically signed by Carlos Alberto Win 01-27-2025 7:[address] 01/27/25 18:20 Clinical history: Abnormal chest radiograph Technique: Axial computed tomography images were obtained of the chest after the administration of intravenous contrast Findings: There are multifocal peripheral interstitial opacities with mild honeycombing and subpleural lines bilaterally, consistent with pulmonary fibrosis. There is relative sparing of the lung apices. There is no pleural effusion or pneumothorax. No endobronchial lesion is seen There are small mediastinal lymph nodes. There is no overt mediastinal, hilar, or axillary adenopathy. The thoracic aorta appears unremarkable with no sign of aneurysm or dissection. There is no pericardial effusion. There is extensive coronary atherosclerosis The visualized upper abdomen appears unremarkable. No fracture is seen. No focal osseous lesion is evident Impression: 1. Moderate severity pulmonary fibrosis 2. Extensive coronary atherosclerosis Electronically signed by Carlos Alberto Win 01-27-2025 7:51 PM ECG Data Attestation: I personally reviewed and interpreted this ECG as follows: Indication: + weakness Rate (beats per minute): 60 Rhythm: + sinus rhythm ECG Intervals/blocks: + First degree AV block, + Normal QRS and + Normal QT ECG [place]: + Normal ECG ST segments: + Normal ST segments ECG Findings: + Poor R wave progression Comparison ECG Date: from (12/10/2024) Change: no significant change MDM Narrative Patient is an 84-year-old female with history of insulin-dependent diabetes who presents for uncontrolled hyperglycemia. Blood glucose level 397 on arrival. No evidence of DKA. No concern for HHS at this time based on clinical presentation. No evidence of sepsis or infection here today. UA not consistent with infection at this time no indication for antibiotics.. Mild acidosis noted likely secondary to acute on chronic hypercapnia. No indication for BiPAP or respiratory support at this time. CT of the chest does show chronic interstitial change consistent with pulmonary fibrosis. No new opacities or concern for infection. Respiratory panel negative here today. Patient was given IV fluids and 10 units of insulin. Blood glucose level improved to 158 on reevaluation. I am concerned about sending patient back to [facility] without adjustments in her medications made and would like to admit her on a sliding scale to obtain an accurate short acting insulin regimen Prior to discharge back to this facility. I do feel like her uncontrolled hyperglycemia secondary to poor diet at the facility. Patient is stable for admission to the hospitalist service at this time. Impression & Plan Hyperglycemia Discharge Plan Visit Data Chief Complaint: Hyperglycemia Stated Complaint: HIGH BLOOD SUGAR ED Provider: Luiz Marti Discharge Problem: Hyperglycemia Patient Disposition: Admitted As Inpatient Condition: Good Forms Stand Alone Forms: My [facility] Prescriptions Prescriptions: No Action (DME) blood-glucose meter [OneTouch Verio Reflect Meter[place] [facility] [place] .Route Qty: 1 0RF Rx Instructions: As directed (DME) lancets [OneTouch Delica Plus Lancet] 33 gauge misc See Rx Instructions .ROUTE .MEDSUPPLY Qty: 400 3RF Rx Instructions: use to test 4 times daily atorvastatin [Lipitor] 40 mg tablet 40 mg PO HS Qty: 90 3RF methenamine hippurate 1 gram tablet 1 g PO BID Qty: 180 5RF (DME) pen needle, diabetic 32 gauge x 5/32" needle See Rx Instructions .ROUTE .MEDSUPPLY Qty: 400 3RF Rx Instructions: use 4 per day with insulin injections duloxetine 60 mg capsule,delayed release(DR/EC) 60 mg PO DAILY Qty: 30 5RF loperamide [Imodium A-D] 2 mg tablet 2 mg PO Q8 PRN (Reason: Diarrhea) Qty: 90 0RF levothyroxine 25 mcg capsule 25 mcg PO DAILY Qty: 30 2RF hydroxyzine HCl 10 mg tablet 10 mg PO BID metoprolol succinate 50 mg tablet extended release 24 hr 50 mg PO Q12 Premarin 0.625 mg/gram cream 0.625 mg vaginal DAILY Qty: 30 2RF Rx Instructions: apply 1/2 gram vaginally daily for two weeks then apply just twice per week after triamcinolone acetonide 0.1 % cream 1 applic topical BID Qty: 30 1RF Rx Instructions: apply to affected areas for itching...use with ketoconazole and barrier cream (DME) OneTouch Verio test strips Strip See Rx Instructions .ROUTE .MEDSUPPLY Qty: 300 3RF Rx Instructions: test 4 times daily cholecalciferol (vitamin D3) 50 mcg (2,000 unit) capsule 50 mcg PO DAILY ondansetron HCl 4 mg tablet 4 mg PO Q4 PRN (Reason: Nausea And Vomiting) lidocaine 5 % adhesive patch,medicated 1 patch topical DAILY Qty: 15 5RF Rx Instructions: apply to lower back 1 time a day for pain for up to 12 hours PreserVision AREDS-2 250-90-40-1 mg Capsule 1 tab PO BID cranberry extract [Cranberry Concentrate] 500 mg Capsule 500 mg PO QAM Rx Instructions: administer with meals clopidogrel [Plavix] 75 mg tablet 75 mg PO QAM spironolactone [Aldactone] 25 mg tablet 12.5 mg PO QAM doxazosin 1 mg tablet 1 mg PO QAM Gemtesa 75 mg tablet 75 mg PO QAM insulin glargine U-300 conc [Toujeo Max U-300 SoloStar] 300 unit/mL (3 mL) insulin pen 40 unit subcut QAM Probiotic Digestive Health 30 billion cell Capsule 1 cap PO DAILY multivitamin with minerals Tablet 1 tab PO DAILY lisinopril 20 mg tablet 40 mg PO QAM insulin lispro [Humalog KwikPen Insulin] 100 unit/mL insulin pen 6 unit subcut TIDM ketoconazole 2 % cream 1 applic topical BID PRN (Reason: Itching) Referrals Referrals: Markus Castillo MD [Primary Care Provider] -
[2025-01-27 15:54] LABS: Hematocrit (blood only) 36.7 % (37.0-47.0); Hemoglobin 12.3 g/dL (12.0-16.0); Immature Granulocytes # (auto) 0.03 K/uL (0.01-0.20); Immature Granulocytes % (auto) 0.4 %; Mean Corpuscular Hemoglobin 30.1 pg (25.0-34.0); Mean Corpuscular Volume 89.7 fL (80.0-100.0); Platelet Count 192 K/uL (130-400); RDW Standard Deviation 41.8 fL (36.4-46.3); Red Blood Count 4.09 M/uL (4.20-5.40); White Blood Count 7.70 K/ul (4.8-10.8)
[2025-01-27] MEDS: NovoLIN-R INSULIN PER UNIT CHARGE IV STA (16:02)
[2025-01-27 16:24] LABS: Alanine Aminotransferase 16.0 U/L (7-52); Albumin Globulin Ratio 1.1 (0.9-2); Albumin Level 4.0 gm/dl (3.4-5.0); Alkaline Phosphatase 53.0 U/L (34-104); Anion Gap 8.0 (3-11); Bilirubin,Total 0.4 mg/dl (0.2-1.0); Blood Urea Nitrogen 23.0 mg/dl (6-23); Calcium 9.3 mg/dl (8.6-10.3); Carbon Dioxide 24.0 mmol/L (21-32); Chloride 102.0 mmol/L (98-107); Creatinine Clr Calc Pharmacy 38.8 ml/min; Globulin 3.6 gm/dl (2.5-4.0); Glucose 397.0 mg/dl (70-99(Fasting)); Magnesium 1.6 mg/dl (1.7-2.4); Potassium 4.2 mmol/L (3.5-5.1); Sodium 134.0 mmol/L (136-145); Total Protein 7.6 gm/dl (6.0-8.3)
--- NOTE | 2025-01-27 16:26 | Electrocardiogram Report ---
Test Reason : Blood Pressure : */* mmHG Vent. Rate : 60 BPM Atrial Rate : 60 BPM P-R Int : 242 ms QRS Dur : 90 ms QT Int : 428 ms P-R-T Axes : 24 -17 53 degrees QTcB Int : 428 ms Sinus rhythm with 1st degree A-V block Poor R wave progression, consider anterior NE vs. lead placement vs. LVH Abnormal ECG When compared with ECG of 10-Dec-2024 14:18, No significant change was found Confirmed by Elías Swan ([id number]) on 01/27/2025 4:26:02 PM Referred By: Confirmed By: Elías Swan
[2025-01-27 16:41] LABS: Hemoglobin A1C 9.6 % (4.5-5.6)
[2025-01-27 17:15] LABS: Base Excess VBG -4.3 mEq/L; HCO3 VBG 23 mmol/L; Oxygen Saturation VBG 92.4 %; PCO2 VBG 52 mmHg (38-50); PO2 VBG 59 mmHg; pH VBG 7.26 (7.36-7.41)
[2025-01-27] MEDS: OPTIRAY 320 100ml IV ONE (18:43)
[2025-01-27 19:12] LABS: Chlamydia pneumoniae PCR Not Detected (NotDetected); Coronavirus 229E PCR Not Detected (NotDetected); Coronavirus CoV-2 (COVID19)PCR Not Detected (NotDetected); Coronavirus HKU1 PCR Not Detected (NotDetected); Coronavirus NL63 PCR Not Detected (NotDetected); Coronavirus OC43PCR Not Detected (NotDetected); Human Metapneumovirus PCR Not Detected (NotDetected); Parainfluenza Virus 1 PCR Not Detected (NotDetected); Parainfluenza Virus 2 PCR Not Detected (NotDetected); Parainfluenza Virus 3 PCR Not Detected (NotDetected); Parainfluenza Virus 4 PCR Not Detected (NotDetected); Respiratory Syncytial VirusPCR Not Detected (NotDetected); Rhinovirus/Enterovirus PCR Not Detected (NotDetected)
--- NOTE | 2025-01-27 19:17 | XRay Report ---
Technique: PA and lateral views of the chest were obtained Findings: There is multifocal interstitial prominence that may be due to pulmonary fibrosis. The heart size is within normal limits. No pleural effusion or pneumothorax is seen. No fracture is noted. No foreign body is seen Impression: Multifocal interstitial prominence that may be due to pulmonary fibrosis Electronically signed by Carlos Alberto Win 01-27-2025 7:17 PM
--- NOTE | 2025-01-27 19:57 | CT Scan Report ---
Clinical history: Abnormal chest radiograph Technique: Axial computed tomography images were obtained of the chest after the administration of intravenous contrast Findings: There are multifocal peripheral interstitial opacities with mild honeycombing and subpleural lines bilaterally, consistent with pulmonary fibrosis. There is relative sparing of the lung apices. There is no pleural effusion or pneumothorax. No endobronchial lesion is seen There are small mediastinal lymph nodes. There is no overt mediastinal, hilar, or axillary adenopathy. The thoracic aorta appears unremarkable with no sign of aneurysm or dissection. There is no pericardial effusion. There is extensive coronary atherosclerosis The visualized upper abdomen appears unremarkable. No fracture is seen. No focal osseous lesion is evident Impression: 1. Moderate severity pulmonary fibrosis 2. Extensive coronary atherosclerosis Electronically signed by Carlos Alberto Win 01-27-2025 7:51 PM
[2025-01-27 20:13] LABS: Appearance Urine Cloudy (Clear); Bacteria Urine Automated None Seen (None Seen); Cast Urine Automated 0-2 /lpf (0-2); Glucose Urine UA 1+ (Negative)
[2025-01-27] MEDS: MAGNESIUM SULFATE / D5W 1 GM/100 ML BAG IV STA (21:00)
--- NOTE | 2025-01-27 22:02 | History & Physical Report ---
Date of Service January 27, 2025 Assessment & Plan (1) Type 2 diabetes mellitus with insulin therapy: (2) Hyperglycemia: (3) Hypertension: (4) Overactive bladder: (5) Diarrhea: (6) Hypomagnesemia: (7) Weakness: (8) Dehydration: Plan Patient is a pleasant 84-year-old female with past medical history of hyperlipidemia, incontinence, anxiety with episodes of depression, diabetes type 2, hypothyroidism, hypertension, CAD, and vitamin D deficiency admitted for management of hyperglycemia and weakness. Hyperglycemia DM-II, uncontrolled Patient given NSS 1 L bolus and insulin regular 10 units while in emergency department, which decreased patient's blood sugar to 150s. Suspect initial elevation may have been related to diet since it does not sound like she has a diabetic diet in her personal-correction. Admit to MedSurg Continue Lantus and sliding scale insulin; will order lower dose, patient uses at home considering that he will have DM-II diet while in the hospital amides thus at high risk of hypoglycemia. Can adjust as needed for better control. Weakness Diarrhea/Dehydration/Hypomagnesemia Patient endorses having almost daily bouts of diarrhea, most times with multiple episodes per day, and today developed more bothersome weakness Patient did appear dehydrated to exam today and labs showing hypomagnesemia and mild hyponatremia which could be related to her diarrhea as well Given magnesium 1 g while in emergency department will recheck with a.m. labs and replete as needed Status post NSS 1 L bolus in the emergency department and will order LR at maintenance rate for continued fluid administration Encourage p.o. intake as able If no fevers or other concerns for infectious cause, can use loperamide for control of diarrhea if needed PT/OT consulted Dispo: Admit to MedSurg; patient and patient's [id number] wondering about [facility] and would like to discuss amongst themselves to see if they would like to try for another facility/community; CM consulted for d/h planning Fluids: LR Diet: DM-II VTE ppx: Lovenox Code Status: FULL (was considering DNR/DNI status, however, after she spoke with her daughter in law - Alize Andrade -, decided to change this to full code until after she spoke with her again, and stated that she would decide whether to stay full code or change to DNR/DNI maybe in the morning) History of Present Illness Chief Complaint: Hyperglycemia Primary Care Provider: Markus Castillo MD Patient is a pleasant 84-year-old female with past medical history of hyperlipidemia, incontinence, anxiety with episodes of depression, diabetes type 2, hypothyroidism, hypertension, CAD, and vitamin D deficiency who comes to the emergency department due to hyperglycemia that was noted in her personal-correction in [facility]. Per patient's request, called her [id number] (Alize Andrade) who explains that she went to visit patient today and when they went to check her blood sugar it was noted to be 427. Prior to this, her [id number]-rx-lct had not received any calls. Patient states that in personal- correction, "everybody gets the same food even if they are diabetic ", but she does get her insulin at the appropriate times. In addition to the noted hyperglycemia, patient also states that she has been having multiple episodes of diarrhea almost on a daily basis and earlier today she felt more weak than usual. She is been trying to keep up with oral hydration is much as possible especially when she is having recurrent episodes of diarrhea. No new medications. Denies having any associated fevers, chills, chest pain, shortness of breath, dyspnea on exertion, swelling, nausea or vomiting, or any other systemic symptoms. ED course: Given NSS 1 L bolus x 1, given insulin regular 10 units IV x 1, given magnesium 1 g IV x 1 Labs/Imaging: CBC without leukocytosis, hemoglobin of 12.3, platelets of 192. CMP with mild hyponatremia of 134, potassium 4.2, and renal markers within reference range, blood sugar at the time is 397. Hemoglobin A1c is 9.6%. Phosphorus is 3. Magnesium is 1.6. LFTs unremarkable. Troponin negative. BNP of 52. Albumin of 4. With a with mild glycosuria and sterile pyuria. Bio fire negative. X-ray showing multifocal interstitial prominence that may be due to pulmonary fibrosis. Chest CT showing moderate severity pulmonary fibrosis and extensive coronary atherosclerosis. Medical History: [Reviewed] Medications: [Reviewed] Surgical History: [Reviewed] Family history: [Reviewed] Allergies: [Reviewed] Social History: [Reviewed] Code Status: FULL (was considering DNR/DNI status, however, after she spoke with her daughter in law - Alize Andrade -, decided to change this to full code until after she spoke with her again, and stated that she would decide whether to stay full code or change to DNR/DNI maybe in the morning) Allergies Allergy/AdvReac Type Severity Reaction Status Date / Time ciprofloxacin Allergy Severe "i blew up Verified 01/22/25 13:06 like a balloon" per pt dapsone Allergy Intermediate Rash Verified 01/22/25 13:06 Sulfa (Sulfonamide Allergy Mild Unknown Verified 01/22/25 13:06 Antibiotics) latex Allergy Unknown Unknown Verified 01/22/25 13:06 adhesive AdvReac Unknown Unknown Verified 01/22/25 13:06 metronidazole [From Flagyl] AdvReac Unknown Unknown Verified 01/22/25 13:06 red dye AdvReac Unknown Unknown Verified 01/22/25 13:06 Home Medications Medication Instructions Recorded Confirmed Type OneTouch Verio Reflect Meter #1 ea 08/05/21 01/27/25 Rx (blood-glucose meter) OneTouch Delica Plus Lancet 33 #400 ea 07/28/22 01/27/25 Rx gauge (lancets) vit C 250 mg-vit E 90 mg-zinc 40 1 tab PO BID 08/17/22 01/27/25 History mg-copper 1 yj-pzazzw-jqtdet capsule (PreserVision AREDS-2) ondansetron HCl 4 mg tablet 4 mg PO Q4 PRN Nausea And Vomiting 05/20/24 01/27/25 History OneTouch Verio test strips (blood #300 ea 05/29/24 01/27/25 Rx sugar diagnostic) triamcinolone acetonide 0.1 % 1 applic topical BID #30 grams 05/29/24 01/27/25 Rx topical cream atorvastatin 40 mg tablet (Lipitor) 40 mg PO HS #90 tabs 07/17/24 01/27/25 Rx hydroxyzine HCl 10 mg tablet 10 mg PO BID 08/04/24 01/27/25 History L.acid,par,plant,rham-B.anim,bif,brev,inf,long 1 cap PO DAILY 09/17/24 01/27/25 History 30 billion cell capsule (Probiotic Digestive Health) clopidogrel 75 mg tablet (Plavix) 75 mg PO QAM 09/17/24 01/27/25 History doxazosin 1 mg tablet 1 mg PO QAM 09/17/24 01/27/25 History insulin glargine U-300 conc 300 40 unit subcut QAM 09/17/24 01/27/25 History unit/mL (3 mL) subcutaneous pen (Toujeo Max U-300 SoloStar) multivitamin with minerals 1 tab PO DAILY 09/17/24 01/27/25 History spironolactone 25 mg tablet 12.5 mg PO QAM 09/17/24 01/27/25 History (Aldactone) vibegron 75 mg tablet (Gemtesa) 75 mg PO QAM 09/17/24 01/27/25 History cholecalciferol (vitamin D3) 50 50 mcg PO DAILY 10/06/24 01/27/25 History mcg (2,000 unit) capsule methenamine hippurate 1 gram tablet 1 g PO BID #180 tabs 10/14/24 01/27/25 Rx metoprolol succinate 50 mg 50 mg PO Q12 10/30/24 01/27/25 History tablet,extended release 24 hr pen needle, diabetic 32 gauge x #400 ea 11/12/24 01/27/25 Rx 5/32" duloxetine 60 mg capsule,delayed 60 mg PO DAILY #30 caps 11/13/24 01/27/25 Rx release insulin lispro 100 unit/mL 6 unit subcut TIDM 12/01/24 01/27/25 History subcutaneous pen (Humalog KwikPen (U-100) Insulin) lisinopril 20 mg tablet 40 mg PO QAM 12/01/24 01/27/25 History loperamide 2 mg tablet (Imodium 2 mg PO Q8 PRN Diarrhea #90 tabs 12/01/24 01/27/25 Rx A-D) ketoconazole 2 % topical cream 1 applic topical BID PRN Itching 12/10/24 01/27/25 History levothyroxine 25 mcg capsule 25 mcg PO DAILY #30 caps 12/25/24 01/27/25 Rx lidocaine 5 % topical patch 1 patch topical DAILY Pain #15 ea 01/07/25 01/27/25 Rx conjugated estrogens 0.625 mg/gram 0.625 mg vaginal DAILY #30 grams 01/08/25 01/27/25 Rx vaginal cream (Premarin) cranberry extract 500 mg capsule 500 mg PO QAM 01/27/25 01/27/25 History (Cranberry Concentrate) Past Med/Surg History Problem List (Updated 01/27/25 @ 23:34 by Reyna Banks MD) Dehydration Weakness Hyperglycemia (Acute) Encounter for health maintenance examination (Chronic) Anemia Type 2 diabetes mellitus with insulin therapy Incontinence associated dermatitis Recurrent UTI Nocturnal hypoxemia Adrenal nodule Elevated TSH Fall (Acute) Diabetic nephropathy associated with type 2 diabetes mellitus Persistent microalbuminuria associated with type 2 diabetes mellitus Tiredness Hypertension Low back pain Overactive bladder Lumbar contusion (Acute) Nonproliferative diabetic retinopathy Diabetic peripheral neuropathy Stented coronary artery Loss of protective sensation of skin of foot H/O: stroke with residual effects Urine incontinence (Chronic) Age-related cognitive decline (Chronic) Diabetic peripheral neuropathy associated with type 2 diabetes mellitus (Acute) Gait disturbance (Acute) Nephrolithiasis (Acute) Vitamin D deficiency disease (Acute) Medical History (Updated 01/27/25 @ 23:34 by Reyna Banks MD) Neuropathic pain of both feet Recurrent UTI (urinary tract infection) Albuminuria Left leg weakness Dermatitis Abdominal pain, lower Right sided sciatica Pyelonephritis Gait apraxia Vaginal burning Genitourinary syndrome of menopause Pressure ulcer Cystitis Encephalopathy Diarrhea Abdominal pain, acute, left lower quadrant Urinary tract infection Acute alteration in mental status Hypomagnesemia Influenza A Closed compression fracture of lumbar vertebra (~2019) a chronic superior endplate compression fracture deformity of L5 per the MRI from 03/22/24 Hyperlipidemia IBS (irritable bowel syndrome) Spinal stenosis, lumbar region with neurogenic claudication Stroke-like symptom Numbness of left hand Humerus fracture Balance problem Stroke Fall Abnormal thyroid blood test Localized swelling of both lower legs Hypoglycemia Lupus Closed left humeral fracture (07/22/23) from a fall Interstitial lung disease Diabetes mellitus type 2, uncontrolled CAD (coronary artery disease) Hypertension Contact dermatitis Chronic cough Rash Herpes zoster, ocular Contusion of leg, left Gross hematuria Physical deconditioning Expressive aphasia Chronic diarrhea Spinal stenosis of lumbar region Cerebrovascular disease Family history of dementia Neurogenic claudication due to lumbar spinal stenosis Arm DVT (deep venous thromboembolism), acute Mitral regurgitation Hx of renal calculi C. difficile colitis Surgical History History of lithotripsy S/P cardiac catheterization Hx of cholecystectomy Family History Mother Alzheimer disease Hypertension Brother Diabetes Myocardial infarction Father Hypertension Sister Lung cancer Other Family history non-contributory Stroke Denies family history of Ovarian cancer Prostate cancer Breast cancer Colorectal cancer Social History Smoking Status: Never smoker Second Hand Exposure: No; Do You Dip or Chew Tobacco: No; Hx Alcohol Use: No Hx Substance Use: No Preferred Language: Eritrean Communication Ability: Effective Visual Impairment: No Limitations Hearing Ability: Normal Acid Retort Operator Required: No Beliefs That Will Affect Care: Zoroastrianism Zoroastrianism Beliefs: Mandaen marital status: / Current Living Situation: Personal Care Facility Current [facility]uation Comment: [facility] current occupational status: retired Feels Safe at Home: Yes Childhood Exposure to Second-Hand Smoke: No Dental Care, Regularly: No Physical Activity Frequency: Does not Exercise Seatbelt Use: always Sunscreen Use: No Assistive Devices: Oxygen - at Night and Walker Review of Systems Review of Systems: As per HPI Physical Exam Physical Exam: GENERAL: Wake alert and oriented in all spheres, afebrile, nontoxic, no acute distress HEAD: Atraumatic, normocephalic EYES: PERRL, EOM intact THROAT: Normal to visual inspection CHEST: Symmetric chest expansions with respirations CARDIO: Regular rate and rhythm, no rubs murmurs or gallops appreciated PULMONARY: Clear to auscultation bilaterally, normal respiratory effort, no respiratory distress GI: Mild distention, slight tenderness to palpation of suprapubic and RLQ regions, no guarding or rebound tenderness EXTREMITIES: tenderness to palpation in b/l LE w/ minimal swelling (chronic) Results & Data Results & Data Vital Signs (Past 12 Hours) Vital Signs Temp Pulse Pulse Resp BP BP Pulse Ox 01/27/25 20:10 60 01/27/25 20:00 58 L 18 131/74 94 01/27/25 18:00 66 18 155/79 H 94 01/27/25 16:17 58 L 01/27/25 16:16 58 L 18 135/72 93 01/27/25 15:15 36.6 C 67 16 126/84 97 O2 Del Method 01/27/25 20:10 01/27/25 20:00 01/27/25 18:00 01/27/25 16:17 11/25/25 16:16 Room Air 01/27/25 15:15 Supervising Physician Co-Signing Physician Notes Attending addendum: I have physically seen this patient, have supervised the medical residents activities, and agree with the H&P unless as otherwise noted. Assessment and Plan: The patient is an 84-year-old female with past medical history including hyperlipidemia, urinary incontinence, anxiety with depression, diabetes mellitus type 2, hypothyroidism, hypertension, CAD, and vitamin D deficiency. She presen ts to the emergency department with concerns regarding elevated blood sugar, and generalized weakness. Hyperglycemia in diabetes mellitus, uncontrolled- Initial glucose 397, improved to 158 after receiving 1 L normal saline bolus and 10 units of regular insulin IV from the ED Continue home Lantus dosing Placed on Accu-Cheks with NovoLog SSI Order a hemoglobin A1c Generalized weakness/diarrhea/dehydration/hypomagnesemia- Status post 1 L normal saline bolus and magnesium 1 g IV in the ED Group 8 Place on LR at 100 mL/h Repeat laboratories as noted in the a.m. Consult PT/OT Hyperlipidemia- Continue atorvastatin Check a fasting lipid panel Hypertension/history of CVA- Continue clopidogrel, doxazosin, lisinopril, metoprolol succinate, spironolactone Bladder spasm- Continue vibegron Anxiety/depression- Continue duloxetine Remaining orders and notations as noted Resident Activity Tracking Resident Involvement: Resident Care Provided Care Provided: Adult Hospital Medicine (3) Hypertension Hypertension type: unspecified Qualified Code(s): I10 - Essential (primary) hypertension
[2025-01-27] MEDS ORDERED: GLUCOSE 10 TAB/TUBE PO PRN (23:44)
[2025-01-27] MEDS ORDERED: CARBOHYDRATES FOR HYPOGLYCEMIA PO PRN (23:44)
[2025-01-27] MEDS ORDERED: GLUCAGON FOR INJ 1 MG VIAL SQ PRN (23:44)
[2025-01-27] MEDS ORDERED: ACETAMINOPHEN 325 MG TAB PO PRN (23:44)
[2025-01-27] MEDS ORDERED: MELATONIN 3 MG TAB PO PRN (23:44)
[2025-01-27] MEDS ORDERED: GLUCOSE 40% GEL 15 GM TUBE PO PRN (23:44)
[2025-01-27] MEDS ORDERED: DEXTROSE 50% 50 ML SYRINGE IV PRN (23:44)
[2025-01-27] MEDS ORDERED: ONDANSETRON INJ 2 MG/ML 2 ML VIAL IV PRN (23:44)
[2025-01-27] MEDS ORDERED: POLYETHYLENE (MIRALAX) 17 GM PACK PO PRN (23:44)
[2025-01-27] MEDS ORDERED: LOPERAMIDE HCL 2 MG CAP PO PRN (23:49)
[2025-01-28] MEDS: LACTATED RINGER'S 1,000 ML IV SCH ×2 (00:17→00:19)
[2025-01-28] MEDS: LEVOTHYROXINE SODIUM 25 MCG TABLET PO SCH (06:13)
[2025-01-28 06:48] LABS: Hematocrit (blood only) 34.2 % (37.0-47.0); Hemoglobin 11.5 g/dL (12.0-16.0); Immature Granulocytes # (auto) 0.05 K/uL (0.01-0.20); Immature Granulocytes % (auto) 0.6 %; Mean Corpuscular Hemoglobin 30.4 pg (25.0-34.0); Mean Corpuscular Volume 90.5 fL (80.0-100.0); Platelet Count 180 K/uL (130-400); RDW Standard Deviation 42.0 fL (36.4-46.3); Red Blood Count 3.78 M/uL (4.20-5.40); White Blood Count 8.55 K/ul (4.8-10.8)
[2025-01-28 07:16] LABS: Anion Gap 5.0 (3-11); Blood Urea Nitrogen 19.0 mg/dl (6-23); Calcium 8.9 mg/dl (8.6-10.3); Carbon Dioxide 27.0 mmol/L (21-32); Chloride 108.0 mmol/L (98-107); Creatinine Clr Calc Pharmacy 47.2 ml/min; Glucose 171.0 mg/dl (70-99(Fasting)); Magnesium 1.7 mg/dl (1.7-2.4); Potassium 4.5 mmol/L (3.5-5.1); Sodium 140.0 mmol/L (136-145)
[2025-01-28 07:25] VITALS: BP 165/70; PULSE 69; RESP 18; TEMP 98.1; O2SAT 99
--- NOTE | 2025-01-28 07:36 | Hospitalist Progress Note ---
Date of Service January 28, 2025 Assessment & Plan (1) Type 2 diabetes mellitus with insulin therapy: (2) Hyperglycemia: (3) Hypertension: (4) Overactive bladder: (5) Diarrhea: (6) Hypomagnesemia: (7) Weakness: (8) Dehydration: Plan Patient is a pleasant 84-year-old female with past medical history of hyperlipidemia, incontinence, anxiety with episodes of depression, diabetes type 2, hypothyroidism, hypertension, CAD, and vitamin D deficiency admitted for management of hyperglycemia and weakness. Hyperglycemia DM-II, uncontrolled Patient given NSS 1 L bolus and insulin regular 10 units while in emergency department, which decreased patient's blood sugar to 150s. Suspect initial elevation may have been related to diet since it does not sound like she has a diabetic diet in her personal-assisted. Admit to MedSurg Continue Lantus and sliding scale insulin; will order lower dose, patient uses at home considering that he will have DM-II diet while in the hospital amides thus at high risk of hypoglycemia. Can adjust as needed for better control. Weakness Diarrhea/Dehydration/Hypomagnesemia Patient endorses having almost daily bouts of diarrhea, most times with multiple episodes per day, and today developed more bothersome weakness Patient did appear dehydrated to exam today and labs showing hypomagnesemia and mild hyponatremia which could be related to her diarrhea as well Given magnesium 1 g while in emergency department will recheck with a.m. labs and replete as needed Status post NSS 1 L bolus in the emergency department and will order LR at maintenance rate for continued fluid administration Encourage p.o. intake as able If no fevers or other concerns for infectious cause, can use loperamide for control of diarrhea if needed PT/OT consulted Dispo: Admit to MedSurg; patient and patient's [id number] wondering [facility] and would like to discuss amongst themselves to see if they would like to try for another facility/community; CM consulted for d/h planning Fluids: LR Diet: DM-II VTE ppx: Lovenox Code Status: FULL (was considering DNR/DNI status, however, after she spoke with her daughter in law - Alize Andrade -, decided to change this to full code until after she spoke with her again, and stated that she would decide whether to stay full code or change to DNR/DNI maybe in the morning) Admission and Anticipated Discharge Date Admission Date: January 27, 2025 Physical Exam Physical Exam: GENERAL: Wake alert and oriented in all spheres, afebrile, nontoxic, no acute distress HEAD: Atraumatic, normocephalic EYES: PERRL, EOM intact THROAT: Normal to visual inspection CHEST: Symmetric chest expansions with respirations CARDIO: Regular rate and rhythm, no rubs murmurs or gallops appreciated PULMONARY: Clear to auscultation bilaterally, normal respiratory effort, no respiratory distress GI: Mild distention, slight tenderness to palpation of suprapubic and RLQ regions, no guarding or rebound tenderness EXTREMITIES: tenderness to palpation in b/l LE w/ minimal swelling (chronic) Results & Data Results & Data Vital Signs (Past 12 Hours) Vital Signs Temp Pulse Pulse Resp BP BP Pulse Ox 01/28/25 07:22 36.7 C 69 18 165/70 H 99 01/27/25 23:46 36.5 C 62 16 147/76 H 94 01/27/25 23:44 36.5 C 62 16 147/76 H 94 01/27/25 23:04 95 H 154/104 H 01/27/25 22:51 31 H 01/27/25 22:42 58 L 21 96 01/27/25 22:30 59 L 20 93 01/27/25 22:21 59 L 21 97 01/27/25 22:12 59 L 24 93 01/27/25 22:00 56 L 23 94 01/27/25 21:51 57 L 18 97 01/27/25 21:42 57 L 24 94 01/27/25 21:30 58 L 24 01/27/25 21:21 59 L 31 H 96 01/27/25 21:12 65 25 H 96 01/27/25 21:00 163/96 H 01/27/25 21:00 163/96 H 01/27/25 21:00 163/96 H 01/27/25 21:00 163/96 H 01/27/25 21:00 163/96 H 01/27/25 21:00 59 L 19 96 01/27/25 20:51 56 L 18 95 01/27/25 20:42 62 23 95 01/27/25 20:30 157/78 H 01/27/25 20:30 157/78 H 01/27/25 20:30 157/78 H 01/27/25 20:30 157/78 H 01/27/25 20:30 157/78 H 01/27/25 20:30 56 L 23 95 01/27/25 20:21 60 23 97 01/27/25 20:12 61 23 96 01/27/25 20:10 60 01/27/25 20:03 67 22 91 01/27/25 20:00 58 L 18 131/74 94 01/27/25 19:42 62 23 93 O2 Del Method O2 Flow Rate 01/28/25 07:22 Nasal Cannula 2 01/27/25 23:46 Room Air 01/27/25 23:44 Room Air 01/27/25 23:04 01/27/25 22:51 01/27/25 22:42 01/27/25 22:30 01/27/25 22:21 01/27/25 22:12 01/27/25 22:00 01/27/25 21:51 01/27/25 21:42 01/27/25 21:30 01/27/25 21:21 01/27/25 21:12 01/27/25 21:00 01/27/25 21:00 01/27/25 21:00 01/27/25 21:00 01/27/25 21:00 01/27/25 21:00 01/27/25 20:51 01/27/25 20:42 01/27/25 20:30 01/27/25 20:30 01/27/25 20:30 01/27/25 20:30 01/27/25 20:30 01/27/25 20:30 01/27/25 20:21 01/27/25 20:12 01/27/25 20:10 01/27/25 20:03 01/27/25 20:00 01/27/25 19:42 (3) Hypertension Hypertension type: unspecified Qualified Code(s): I10 - Essential (primary) hypertension
[2025-01-28] MEDS: SPIRONOLACTONE 12.5 MG TAB PO SCH (08:32)
[2025-01-28] MEDS: CHOLECALCIFEROL 25 MCG (1000 UNITS) TAB PO SCH (08:32)
[2025-01-28] MEDS: DOXAZOSIN MESYLATE 1 MG TAB PO SCH (08:32)
[2025-01-28] MEDS: CLOPIDOGREL BISULFATE 75 MG TAB PO SCH (08:32)
[2025-01-28] MEDS: METOPROLOL SUCC 50MG EXT REL TAB PO SCH (08:33)
[2025-01-28] MEDS: VIBEGRON 75 MG TAB PO SCH (08:33)
[2025-01-28] MEDS: INSULIN ASPART PER UNIT CHARGE SC SCH (08:44)
[2025-01-28] MEDS: LANTUS PER UNIT CHARGE SQ SCH (08:48)
--- NOTE | 2025-01-28 14:01 | Discharge Summary ---
Date of Service January 28, 2025 Admission HPI Per Admitting Provider Patient is a pleasant 84-year-old female with past medical history of hyperlipidemia, incontinence, anxiety with episodes of depression, diabetes type 2, hypothyroidism, hypertension, CAD, and vitamin D deficiency who comes to the emergency department due to hyperglycemia that was noted in her personal-long term in [facility]. Per patient's request, called her umnizuxn-ca-dpf (Alize Andrade) who explains that she went to visit patient today and when they went to check her blood sugar it was noted to be 427. Prior to this, her [id number] had not received any calls. Patient states that in personal-car e home, "everybody gets the same food even if they are diabetic ", but she does get her insulin at the appropriate times. In addition to the noted hyperglycemia, patient also states that she has been having multiple episodes of diarrhea almost on a daily basis and earlier today she felt more weak than usual. She is been trying to keep up with oral hydration is much as possible especially when she is having recurrent episodes of diarrhea. No new medications. Denies having any associated fevers, chills, chest pain, shortness of breath, dyspnea on exertion, swelling, nausea or vomiting, or any other systemic symptoms. ED course: Given NSS 1 L bolus x 1, given insulin regular 10 units IV x 1, given magnesium 1 g IV x 1 Labs/Imaging: CBC without leukocytosis, hemoglobin of 12.3, platelets of 192. CMP with mild hyponatremia of 134, potassium 4.2, and renal markers within reference range, blood sugar at the time is 397. Hemoglobin A1c is 9.6%. Phosphorus is 3. Magnesium is 1.6. LFTs unremarkable. Troponin negative. BNP of 52. Albumin of 4. With a with mild glycosuria and sterile pyuria. Bio fire negative. X-ray showing multifocal interstitial prominence that may be due to pulmonary fibrosis. Chest CT showing moderate severity pulmonary fibrosis and extensive coronary atherosclerosis. Medical History: [Reviewed] Medications: [Reviewed] Surgical History: [Reviewed] Family history: [Reviewed] Allergies: [Reviewed] Social History: [Reviewed] Code Status: FULL (was considering DNR/DNI status, however, after she spoke with her daughter in law - Alize Andrade -, decided to change this to full code until after she spoke with her again, and stated that she would decide whether to stay full code or change to DNR/DNI maybe in the morning) Admission Exam Per Admitting Provider GENERAL: Wake alert and oriented in all spheres, afebrile, nontoxic, no acute distress HEAD: Atraumatic, normocephalic EYES: PERRL, EOM intact THROAT: Normal to visual inspection CHEST: Symmetric chest expansions with respirations CARDIO: Regular rate and rhythm, no rubs murmurs or gallops appreciated PULMONARY: Clear to auscultation bilaterally, normal respiratory effort, no respiratory distress GI: Mild distention, slight tenderness to palpation of suprapubic and RLQ regions, no guarding or rebound tenderness EXTREMITIES: tenderness to palpation in b/l LE w/ minimal swelling (chronic) Principal Diagnosis uncontrolled diabetes type 2, weakness Discharge Exam Gen: no acute distress, A&Ox4 Resp: clear to auscultation b/l, no w/r/R CV: RRR, no m/r/g GI: Mild distention, normo-hyperactive BS, minimal discomfort to palpation Ext: tenderness to palpation in b/l LE w/ minimal swelling (chronic) Discharge Data Allergies Allergy/AdvReac Type Severity Reaction Status Date / Time ciprofloxacin Allergy Severe "i blew up Verified 01/22/25 13:06 like a balloon" per pt dapsone Allergy Intermediate Rash Verified 01/22/25 13:06 Sulfa (Sulfonamide Allergy Mild Unknown Verified 01/22/25 13:06 Antibiotics) latex Allergy Unknown Unknown Verified 01/22/25 13:06 adhesive AdvReac Unknown Unknown Verified 01/22/25 13:06 metronidazole [From Flagyl] AdvReac Unknown Unknown Verified 01/22/25 13:06 red dye AdvReac Unknown Unknown Verified 01/22/25 13:06 Consultations 01/27/25 21:39 ED Decision to Admit Stat Ordered Studies 01/27/25 18:20 CT chest diagnostic w con Stat Hospital Course (1) Type 2 diabetes mellitus with insulin therapy: (2) Hyperglycemia: (3) Hypertension: (4) Overactive bladder: (5) Diarrhea: (6) Weakness: (7) Dehydration: Ann Black is a pleasant 84-year-old female with past medical history of hyperlipidemia, incontinence, anxiety with episodes of depression, diabetes type 2, hypothyroidism, hypertension, CAD, and vitamin D deficiency admitted for management of hyperglycemia and weakness. Glucose has been improved to more manageable level, and PT and OT have both reported she may return to [facility], not requiring acute rehab. Due to her medical stabilization and clinical improvement, we feel comfortable with her discharge today. Advised followup with PCP next week. Hyperglycemia (high blood sugar) Diabetes type 2, poorly controlled - blood glucose still elevated but much improved on insulin while in hospital - continue home diabetes medications as prescribed - encouraged be wary of dietary choices: limit/avoid very sweet/sugary/carb- heavy foods as these will make blood glucose high pt's [id number] Emmie Andrade ([phone]) spoke with nutritional director at [facility], they will be more conscious of dietary options they provide - follow up with PCP next week for hospital followup, even though you saw her recently. We would like to defer any chronic medication changes to her Weakness Diarrhea/Dehydration/low magnesium known history of chronic diarrhea / IBS, however prominent weakness upon ER presentation which has improved with IV re-hydration and with blood sugar control Continue good daily hydration and diet to prevent future dehydration and weakness - magnesium repleted - may use loperamide for control of diarrhea continue working on strength at [facility] with daily ambulation and movement/exercises as tolerated Hypothyroidism TSH level elevated- consider increasing levothyroxine dosage at next PCP followup Total Time Total Time Spent Total Time Spent (In Minutes): per attending attestation less than 30 minutes required Discharge Plan Discharge Items Patient Disposition: Personal [facility] Reason For Visit: HYPERGLYEMIA Discharge Diagnosis: uncontrolled diabetes type 2, dehydration Condition on Discharge: Good Activity: Per Instructions section Non-emergency contact: Primary Care Provider Call non-emergency contact if: your symptoms worsen and your pain is not controlled Follow-up/Referrals: Markus Castillo MD [Primary Care Provider] - 02/03/25 1:30 pm (please have hospital followup appt next week, even though just saw pt about a week ago) Diet: Carb Consistent or DM2 Addtl Attending Provider Instructions: You were admitted for management of hyperglycemia (high blood sugar) and weakness. We have since improved your blood sugar to more manageable levels with your current regimen. PT and OT have both reported that you are safe to return to [facility], not requiring acute rehab. Due to your medical stabilization and clinical improvement, we feel comfortable with your discharge today. Please follow up next week with your PCP for close coordination of care. Hyperglycemia (high blood sugar) Diabetes type 2, poorly controlled - sugars improved on insulin while in hospital - continue home diabetes medications as prescribed - be wary of dietary choices: limit/avoid very sweet/sugary/carb-heavy foods as these will make blood sugar go high - follow up with PCP next week for hospital followup, even though you saw her recently. We would like to defer any chronic medication changes to her Weakness Diarrhea/Dehydration/low magnesium known history of chronic diarrhea / IBS, however prominent weakness upon ER presentation which has improved with IV re-hydration and with blood sugar control Continue good daily hydration and diet to prevent future dehydration and weakness - magnesium repleted - may use loperamide for control of diarrhea continue working on strength at [employer] with daily ambulation and movement/exercises as tolerated Hypothyroidism TSH level elevated- consider increasing levothyroxine dosage at next PCP followup Pending Studies at Discharge: No Stand-Alone Forms: My [employer], Smoking Cessation Skilled Items Patient informed of condition?: Yes DNR: No Discharge Level of Care: Other Communicable Disease: No Discharge Prognosis: Improving Lines: None Urinary Catheter: No Medications and DC Order Prescriptions: Continued (DME) blood-glucose meter [OneTouch Verio Reflect Meter] Misc See Rx Instructions .Route Qty: 1 0RF Rx Instructions: As directed (DME) lancets [OneTouch Delica Plus Lancet] 33 gauge misc See Rx Instructions .ROUTE .MEDSUPPLY Qty: 400 3RF Rx Instructions: use to test 4 times daily atorvastatin [Lipitor] 40 mg tablet 40 mg PO HS Qty: 90 3RF methenamine hippurate 1 gram tablet 1 g PO BID Qty: 180 5RF (DME) pen needle, diabetic 32 gauge x 5/32" needle See Rx Instructions .ROUTE .MEDSUPPLY Qty: 400 3RF Rx Instructions: use 4 per day with insulin injections duloxetine 60 mg capsule,delayed release(DR/EC) 60 mg PO DAILY Qty: 30 5RF loperamide [Imodium A-D] 2 mg tablet 2 mg PO Q8 PRN (Reason: Diarrhea) Qty: 90 0RF levothyroxine 25 mcg capsule 25 mcg PO DAILY Qty: 30 2RF hydroxyzine HCl 10 mg tablet 10 mg PO BID metoprolol succinate 50 mg tablet extended release 24 hr 50 mg PO Q12 Premarin 0.625 mg/gram cream 0.625 mg vaginal DAILY Qty: 30 2RF Rx Instructions: apply 1/2 gram vaginally daily for two weeks then apply just twice per week after triamcinolone acetonide 0.1 % cream 1 applic topical BID Qty: 30 1RF Rx Instructions: apply to affected areas for itching...use with ketoconazole and barrier cream (DME) OneTouch Verio test strips Strip See Rx Instructions .ROUTE .MEDSUPPLY Qty: 300 3RF Rx Instructions: test 4 times daily cholecalciferol (vitamin D3) 50 mcg (2,000 unit) capsule 50 mcg PO DAILY ondansetron HCl 4 mg tablet 4 mg PO Q4 PRN (Reason: Nausea And Vomiting) lidocaine 5 % adhesive patch,medicated 1 patch topical DAILY Qty: 15 5RF Rx Instructions: apply to lower back 1 time a day for pain for up to 12 hours PreserVision AREDS-2 250-90-40-1 mg Capsule 1 tab PO BID cranberry extract [Cranberry Concentrate] 500 mg Capsule 500 mg PO QAM Rx Instructions: administer with meals clopidogrel [Plavix] 75 mg tablet 75 mg PO QAM spironolactone [Aldactone] 25 mg tablet 12.5 mg PO QAM doxazosin 1 mg tablet 1 mg PO QAM Gemtesa 75 mg tablet 75 mg PO QAM insulin glargine U-300 conc [Toujeo Max U-300 SoloStar] 300 unit/mL (3 mL) insulin pen 40 unit subcut QAM Probiotic Digestive Health 30 billion cell Capsule 1 cap PO DAILY multivitamin with minerals Tablet 1 tab PO DAILY lisinopril 20 mg tablet 40 mg PO QAM insulin lispro [Humalog KwikPen Insulin] 100 unit/mL insulin pen 6 unit subcut TIDM ketoconazole 2 % cream 1 applic topical BID PRN (Reason: Itching) Discharge Orders: Discharge Order (Routine); Ordered 01/28/25 Ordered By: Ambrosio Currie/Other Patient Handouts: High Blood Sugar (Hyperglycemia), Diabetes Type 2 Ch, Understanding Type 2 Diabetes Admission Data Admit Date/Time: 01/27/25 22:01 Attending Provider: Hung Crespo Admit Provider: Reyna Banks Primary Care Provider: Markus Castillo V. Other Providers: [facility] Other Interventions: Discharge Summary Assessment (RN) Last Done: 01/28/25 15:07 Supervising Physician Co-Signing Physician Notes Resident Physician Supervision Note: I personally examined the patient and verified all akers points of history and exam, discussed case, and agree with decision making with Dr. Espitia I discussed the case with the resident and agree with the findings and plan as documented in the note. Any exceptions or clarifications are listed here: The Patient admitted with elevation of blood glucose rapidly corrected complicated by diarrhea. No significant diarrhea while here. Dietary restriction was reinforced. Continued on basal bolus insulin with outpatient follow-up PT OT at [facility] continues Patient is evaluated and felt stable for addition of a supportive environment awaiting he will Documented By: Hung Crespo MD Resident Activity Tracking Resident Involvement: Resident Care Provided Care Provided: Adult Hospital Medicine
--- NOTE | 2025-01-28 16:44 | Billing Data ---
Date of Service January 28, 2025 Coding Level of Care Code 21402 IN/OBS DISCH 30 MIN/LESS
[2025-01-28] MEDS ORDERED: ATORVASTATIN 40 MG TAB PO SCH (21:00)
--- NOTE | 2025-01-28 22:53 | Billing Data ---
Date of Service January 28, 2025 Coding Level of Care Code 92964 INT INP/OBS CARE
[2025-01-29] MEDS ORDERED: ENOXAPARIN INJ 40 MG/0.4 ML SYR SQ SCH (09:00)
== END 2025-01-28 15:56 | disposition home or self-care (01) | DRG 638 ==
LOC: ED 15:13 → 3E 22:01 → SUATTDRO 22:01 → 3E 23:30